=== PATIENT | male | born 1955 | race Caucasian/White ===

== ENCOUNTER → 2018-09-05 22:49 | Outpatient (CLI) | payer OTHER, SELFPAY ==
[2018-09-05 18:08] VITALS: BMI 30.7
[2018-09-05 22:55] LABS: Absolute Lymphocyte Count 1.37 X10^3/ul (0.83-4.51); Absolute Neutrophil Count 5.5 X10^3/uL (2.0-7.7); Basophil# 0.05 X10^3/uL; Basophil% 0.7 % (0-1); Eosinophil# 0.13 X10^3/uL; Eosinophils% 1.7 % (0-5); Hematocrit 48.5 % (40-54); Lymphocyte # 1.37 X10^3/ul (4.0); Lymphocyte % 17.8 % (19-41); Mean Corp Hgb Conc 35.1 g/gl (32-36); Mean Corpuscular Hgb 31.4 pg (27.0-32.0); Mean Corpuscular Volume 89.6 fL (80-94); Monocyte% 7.8 % (0-10); Neutrophil # 5.51 X10^3/uL (2.7-7.7); Neutrophil % 71.6 % (47-70); Platelet Count 171 K/mm3 (150-450); RBC Distribution Width CV 14.3 % (11.6-14.6); RBC Distribution Width SD 47.1 fl (35.1-43.9); Red Blood Count 5.41 M/mm3 (4.6-6.2); White Blood Count 7.7 K/mm3 (4.4-11.0)
[2018-09-05 22:58] LABS: POSITIVE COUNT NO; POSITIVE DIFFERENTIAL NO; POSITIVE MORPHOLOGY NO
[2018-09-05 23:19] LABS: ALB/GLOB Ratio 1.4 RATIO (0.9-2.4); AST(SGOT) 23 U/L (15-37); Alanine Aminotransfer ALT/SGPT 30 U/L (16-61); Albumin, Serum 4.2 g/dL (3.2-5.0); Alkaline Phosphatase 72 U/L (45-117); Anion Gap 6 (5-15); BUN 22 mg/dL (7-18); BUN/Creat Ratio 13.5 RATIO (10-20); Calcium,Total 8.6 mg/dL (8.5-10.1); Chloride 104 mmol/L (98-107); Creatinine, Serum 1.63 mg/dL (0.70-1.30); EST Glomerular Filtration Rate 46 mL/min (>60); Est Glom Filt Rate - Afr Amer 55 mL/min (>60); Globulin 3.1 g/dL (2.2-4.2); Glucose 119 mg/dL (74-106); Potassium 4.1 mmol/L (3.5-5.1); Protein, Total 7.3 g/dL (6.4-8.2); Sodium Level 140 mmol/L (136-145)
--- OUTSIDE RECORDS SUMMARY | 2018-10-23 03:42 | XMS RPT_ITS ---
:1955 Author Organization OH[facility] Care Team Providers Name Role Phone MARYAM MEDINA Referring Unavailable CASTELE, MARYAM Brownlee Referring Unavailable LAFFIN, LUKE Referring Unavailable LAFFIN, LUKE Referring Unavailable BASHOUR, BASIL N Admitting Unavailable BASHOUR, BASIL N Attending Unavailable CASTELE, MARYAM J Attending Unavailable CASTELE, MARYAM J Referring Unavailable CASTELE, MARYAM J Referring Unavailable CASTELE, MARYAM J Referring Unavailable CASTELE, MARYAM Brownlee Referring Unavailable CASTELE, MARYAM Brownlee Attending Unavailable CASTELE, MARYAM J Referring Unavailable LAFFIN, LUKE Referring Unavailable LAFFIN, LUKE Attending Unavailable Jaimes, Renetta 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-C Attending Unavailable Jaimes, Renetta 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-C Referring Unavailable PROBLEMS PROBLEMS DATE TYPE CONDITION / CODE ATTENDING STATUS SOURCE 09/14/2018 Active Epigastric pain / BASHOUR, BASIL N Active [facility] R10.13(ICD-10) Other [facility] Repository 09/06/2018 Unknown R11.10 - Jaimes, Active [place] Vomiting, Renetta 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-C Community unspecified / Hospital R11.10(ICD-10) Repository 09/06/2018 Unknown E03.9 - Jaimes, Active [place] Hypothyroidism, 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-C Community unspecified / Hospital E03.9(ICD-10) Repository 05/27/2018 Active Other fatigue / NA Active [facility] R53.83(ICD-10) Main [facility] Repository 05/27/2018 Active Chest pain, NA Active [facility] unspecified / Main [facility] R07.9(ICD-10) Repository 04/10/2016 Active Shortness of NA Active [facility] breath / Other [facility] R06.02(ICD-10) Repository 01/31/2016 Active Solitary NA Active [facility] pulmonary nodule Other [facility] / R91.1(ICD-10) Repository 11/06/2017 Active Other chest pain NA Active [facility] / R07.89(ICD-10) Other [facility] Repository PROCEDURES PROCEDURES No Procedure Records FoundRESULTS RESULTS PT ED Observed: 09/14/2018 Status: COMPLETED Source: [place] 10:35 AM [facility] REPOSITORY HNO ID: [id number] Author: Francie Rand) CARLOS ENRIQUE Taylor Service: Nursing Author Type: Registered Nurse Type: Patient Education Filed: 09/14/2018 10:51 AM Note Text: POST OP LEARNING RESPONSE INSTRUCTION PROVIDED TO: Patient and Family member METHOD OF INSTRUCTION: Verbal instruction PATIENT / FAMILY RESPONSE: Information received as demonstrated by interest and questions FOLLOW-UP PLAN: Patient instructed to call with any further issues SUPPLEMENTAL MATERIAL: Post op discharge instructions REFERRAL (RECOMMENDATION): None Electronically Signed By: Francie Taylor RN In Department: [facility] NURSING PROG Observed: 09/14/2018 Status: COMPLETED Source: [place] 10:05 AM [facility] REPOSITORY HNO ID: [id number] Author: Francie Rand) CARLOS ENRIQUE Taylor Service: Nursing Author Type: Registered Nurse Type: Nursing Progress Note Filed: 09/14/2018 10:52 AM Note Text: 0950 Received from pacu No c/o pain Light diet to pt 1020 Iv removed Discharge instructions reviewed with pt and family 1035 Discharged by wheelchair SURGICAL PATHOLOGY Observed: 09/14/2018 Status: F Source: [place] 9:00 AM [facility] REPOSITORY Specimen originated from [facility] Specimen #: [id number] Submitting Physician: Basil Elizondo M.D. FINAL DIAGNOSIS 1. Stomach, biopsy (A) - Gastric oxyntic-type mucosa with no pathologic diagnostic abnormality; see comment. 2. Esophagogastric junction, irregular, biopsy (B) - Reactive squamous mucosa with parakeratosis and focal acute inflammation admixed with actively inflamed gastric mucosa compatible with histologic features of reflux esophagitis; negative for intestinal metaplasia and dysplasia. SS/kr 09/15/2018 COMMENT 1. No microorganisms morphologically compatible with H. pylori are identified on routine H&E stained sections. Baudilio Powers M.D. (Electronic Signature) SPECIMEN SUBMITTED A: GASTRIC, BIOPSY, R/O H. PYLORI B: IRREGULAR ESOPHAGOGASTRIC JUNCTION, BIOPSY, R/O BROWN'S CLINICAL DATA R/O H PYLORI, R/O BROWN'S GROSS DESCRIPTION A. Received in formalin are three pieces of wadsworth, soft tissue aggregating to 0.7 x 0.3 x 0.2 cm. Totally submitted in one cassette. B. Received in formalin are three pieces of wadsworth, soft tissue aggregating to 1.4 x 0.3 x 0.3 cm. Totally submitted in one cassette. Gross examination performed at [facility], [address] [place] [address] 09/14/2018 5:44:35 PM Date of Report: 09/15/2018 Date of Procedure: 09/14/2018 Date of Receipt: 09/14/2018 Submitted by: Basil Elizondo M.D. Location: [facility] Diagnostic interpretation performed at [place] [address]. Performed By: #### PATHS #### [place] [address] [phone] NURSING PROG Observed: 09/14/2018 Status: COMPLETED Source: [place] 8:11 AM [facility] OTHER [facility] REPOSITORY HNO ID: [id number] Author: Lena (Rn) CARLOS ENRIQUE Barber Service: (none) Author Type: Registered Nurse Type: Nursing Progress Note Filed: 09/14/2018 8:11 AM Note Text: PRE OP LEARNING ASSESSMENT PROCEDURE/SURGERY:EGD READINESS TO LEARN COGNITIVE ABILITY: Alert and oriented MOTIVATION TO LEARN: Interested FAMILY SUPPORT: High - Very involved in pt care PATIENT LEARNS BEST BY: Individual Instruction Verbal Instruction FACTORS AFFECTING LEARNING: None PHYSICAL LIMITATIONS AFFECTING LEARNING: None Electronically Signed By: Lena Barber RN, BSN In Department: [facility] HOSP Observed: 09/08/2018 Status: COMPLETED Source: [place] 12:00 AM [facility] OTHER [facility] REPOSITORY Patient:Connor Gonzales MRN: <[id number]> Height:6' 4(1.93 m) Weight:255 lb (115.667 kg) Outpatient Medications as of 09/14/18: ACETAMINOPHEN (TYLENOL ORAL) levothyroxine (SYNTHROID) 88 mcg tablet Admission/Clinic Administered Medications as of 09/14/18: NaCl 0.9% iv infusion Problem List: Disorder of thyroid [E07.9] Lung nodule [R91.1] Melanocytic nevi of trunk [D22.5] Rash and nonspecific skin eruption [R21] Shortness of breath [R06.02] Allergies: No Known Allergies Date Verified:09/14/18 Lab Values No results within the last 30 days for the following basenames: K,HCT No progress notes entered within the past 30 days OFFICE VISIT Observed: 09/06/2018 Status: F Source: [place] 10:58 AM [facility] REPOSITORY [facility] [address] [place] [address] OFFICE VISIT Date of Service: 09/05/18 MR#: [id number] Acct: [id number] Name: CONNOR GONZALES Rep #: [id number] : 1955 Provider: QUE Jaimes Age/Sex: 63/M Location: [facility] Status: Signed Intake Vital Signs09/05/18 Height 6 ft 4.75 in 09/05/18 Weight: 257 lb 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 Ever since then has had trouble breathing, when he bends over he develops coughing and then unable to breath Has seen specialists ,saw a lung DR Jose J, he found some lung nodules but stated that had nothing to do with his problem. Saw a Cardiac Dr states nothing wrong with him also did a stress test on him Rubs his lower chest and states it hurts ,but on exam tender on exam in the epigastric area only had a colonoscpy not a EGD . also stopped his thyroid meds because gave him a headache. last 1-2 months ROS Const Constitutional: Positive for other (chokes on his own phlegm) and fatigue Resp Respiratory: Positive for cough (when he bends over) Gastro GI: Yes other (chokes on his own phlegm), Yes nausea/dyspepsia Endo Endo: Yes fatigue Exam Const Constitutional: Yes cooperative, Yes healthy appearing Orientation: Yes alert, awake and oriented x3 HENMT Head: Yes normocephalic Ear: Yes hearing grossly normal bilaterally Neck Neck: normal visual inspection Thyroid: thyroid normal Eyes General: Yes appearance normal, both eyes and all related structures Chest Chest palpation AND inspection: Yes normal inspection of the chest Resp Effort AND Inspection: Yes normal respiratory effort Auscultation: Yes clear to auscultation bilaterally Cardio Palpitation: Yes normal PMI Rate: Yes regular rate Rhythm: Yes regular rhythm GI Inspection: Yes normal to inspection Auscultation: Yes normal bowel sounds Palpation: Yes no hepatosplenomegaly and guarding (epigastric area) Musc Cervical Spine: Yes cervical ROM normal Thoracic/Lumbar Spine: Yes thoracic and lumbar spine normal to inspection Skin General: no rashes or lesions noted Lesions: Yes no lesions Extrem General: Yes normal to inspection Neuro General: Yes alert and oriented x3 Psych Appearance: Positive grossly normal Mood: Positive congruent mood Affect: Positive normal affect Assessment AND Plan Problems 1. Hypothyroidism (acquired) E03.9 2. Vomiting without nausea, intractability of vomiting not specified, unspecified vomiting type R11.11 Patient Instructions Take the medication everyday till seen again in 1 month will call with the results of the labs drawn today Orders Orders: Medications New: Coding Level of Care Code Off vis,new,level 3 Diagnoses Hypothyroidism (acquired) E03.9 Vomiting without nausea, intractability of vomiting not specified, unspecified vomiting type R11.11 Nausea presence: without nausea Vomiting Intractability: unspecified Vomiting type: unspecified 09/06/18 1058 <Electronically signed by Renetta ANTONIO> Date Renetta ANTONIO CC: CBC W/DIFF, AUTOMATED Collected: 09/05/2018 Status: F Source: [place] 6:30 PM [facility] REPOSITORY TYPE CODE TESTS RESULT OUT OF RANGE REFERENCE UNITS LAB L100.1000 4.4-11.0 K/mm3 Normal WBC 7.7 LAB L100.1200 4.6-6.2 M/mm3 Normal RBC 5.41 LAB L100.1300 13.0-16.5 g/dl High HGB 17.0 LAB L100.1400 40-54 % Normal HCT 48.5 LAB L100.1500 80-94 fL Normal MCV 89.6 LAB L100.1600 27.0-32.0 pg Normal MCH 31.4 LAB L100.1700 32-36 g/gl Normal MCHC 35.1 LAB L100.1810 11.6-14.6 % Normal RDW CV 14.3 LAB L100.1820 35.1-43.9 fl High RDW SD 47.1 LAB L100.1900 150-450 K/mm3 Normal PLT 171 LAB L100.2000 6.2-12.0 fl Normal MPV 12.0 LAB L100.2100 47-70 % High NEUT% 71.6 LAB L100.2200 19-41 % Low LY% 17.8 LAB L100.2300 0-10 % Normal MONO% 7.8 LAB L100.2400 0-5 % Normal EO% 1.7 LAB L100.2500 0-1 % Normal BASO% 0.7 LAB L100.2550 0.0-0.9 % Normal IM GRAN % 0.400 Result Comment: IG% - Immature Granulocytes (promyelocytes, myelocytes and metamyelocytes) > 1% indicates that a LEFT SHIFT is Present. LAB L100.2620 2.0-7.7 X10 3/uL Normal Absolute Neut 5.5 LAB L100.2720 0.83-4.51 X10 3/ul Normal Absolute Lymph 1.37 Performed By: #### L100.0100 #### [facility] [place], [address] COMPREHENSIVE METABOLIC Collected: 09/05/2018 Status: F Source: [place] [facility] 6:30 PM [facility] REPOSITORY TYPE CODE TESTS RESULT OUT OF RANGE REFERENCE UNITS LAB L501.0100 74-106 mg/dL High GLU 119 Result Comment: Fasting Glucose result from 100 to 125 mg/dL suggests IMPAIRED HOMEOSTASIS per A.D.A. criteria. Please note revised GLUCOSE reference range effective 2017. LAB L501.1000 7-18 mg/dL High BUN 22 LAB L501.1100 0.70-1.30 mg/dL High CREAT,SERUM 1.63 Result Comment: The validity of the calculated GFR AND GFRAA in patients over 70 years has not been determined. Clinical correlation is essential. LAB L501.1110 >60 mL/min Low EST GFR 46 Result Comment: Non- GFR Calc LAB L501.1115 >60 mL/min Low EST GFR - AA 55 Result Comment: GFR Calc LAB L501.1300 10-20 RATIO Normal BUN/CRE 13.5 LAB L501.1500 6.4-8.2 g/dL T Normal PROT 7.3 LAB L501.1800 3.2-5.0 g/dL Normal ALB 4.2 LAB L501.1950 2.2-4.2 g/dL Normal GLOB 3.1 LAB L501.2000 0.9-2.4 RATIO Normal A/G 1.4 LAB L501.2200 8.5-10.1 mg/dL CA Normal 8.6 LAB L501.4100 15-37 U/L Normal AST 23 LAB L501.4305 45-117 U/L Normal ALK P 72 LAB L501.4405 16-61 U/L Normal ALT 30 LAB L501.4600 0.20-1.00 mg/dL High T BILI 1.30 LAB L501.5300 136-145 mmol/L NA Normal 140 LAB L501.5600 3.5-5.1 mmol/L K Normal 4.1 LAB L501.5900 98-107 mmol/L CL Normal 104 LAB L501.6100 21.0-32.0 mmol/L Normal CO2 30.0 LAB L501.6200 5-15 Normal GAP 6 Performed By: #### L500.4050, L501.9520 #### [facility] [address] [place], [address] THYROID STIM HORMONE Collected: 09/05/2018 Status: F Source: [place] (TSH) 6:30 PM [facility] REPOSITORY TYPE CODE TESTS RESULT OUT OF RANGE REFERENCE UNITS LAB L501.9520 0.358-3.74 uIU/mL High TSH 19.50 Performed By: #### L500.4050, L501.9520 #### [facility] [address] [place], [address] CNCO Observed: 08/03/2018 Status: COMPLETED Source: [place] 12:[address] [facility] REPOSITORY Letter Text Fabian Mansfield MD Preventive Cardiology [facility] Department of Cardiovascular Medicine [address] [place] [address] Appt: [phone] August 03, 2018 Mr. Connor Gonzales [address] [place] [address] CCF #: [id number] DATE of VISIT: 05/27/2018 Dear Mr. Gonzales, It was a pleasure seeing you in our [facility] on 05/27/2018. We addressed the following issues during the appointment: ASSESSMENT AND PLAN: In addition to the above history and physical exam, the results of prior labs and testing, were reviewed. The following plans and goals have been established to address current medical problems and optimize control of cardiovascular risk factors to reduce the risk of future heart disease: ? Active Medical Problems: ? 1) Chest pain and shortness of breath ? His history is not particularly concerning for angina given the length of time it has occurred and the lack of relation to exertion. He has multiple risk factors for ASCVD, thus I think it is reasonable to perform a stress echocardiogram. This is particularly true given the history that his daughter provides that he is increasingly short of breath and more fatigued recently. I explained to them that if the stress and echo are normal, oftentimes chest pain as he describes can be attributed to musculoskeletal causes. The best way to deal with these pains is to start an exercise regimen that uses these muscles regularly, but safely. ? 2) Hyperlipidemia ? I have asked him to bring his most recent cholesterol levels to our next appointment so we can discuss, risk stratify via his 10-yr ASCVD risk and decide on need for statin therapy. ? 3) Hypertension ? Elevated BP in clinic today. Will discuss addition of lifestyle and possibly pharmacological measures at our next visit. ? FOLLOW UP: We recommend a 6 month follow-up. The above information has also been shared your primary care provider and referring physician. Please feel free to reach out to me anytime if questions arise, or if I may be of further assistance before our next scheduled appointment. I may be reached at [phone] or via [email or web address]. Thank you for your confidence in choosing the [facility] porsha Dey [facility] Department of Cardiovascular Medicine for your healthcare. It is a privilege to work with you to address your cardiovascular health. Sincerely, Fabian Mansfield MD Section of Preventive Cardiology and Rehabilitation Heart and [facility] [facility]/bv STRESS TEST EXERCISE Observed: 06/08/2018 Status: F Source: [place] 12:35 PM [facility] REPOSITORY NAME : CONNOR GONZALES PID : [id number] : 1955 Gender : Male Race : ORD : [id number] Procedure Date : Jun 08 2018 12:35:54 Edit Date : Jun 09 2018 08:49:06 Protocol Name : ORTEGA Time In Exercise Phase : 00:09:00 Max. Systolic BP : 196 mmHg Max Diastolic BP : 94 mmHg Max Heart Rate : 146 BPM Max Predicted Heart Rate : 159 BPM Recovery ECG Response (OLD) : Reason For Termination : Target Heart Rate Achieved Test Reason : CAD Risk Location :[facility] Overread By : EHSAN FARLEY M.D. Edited By : Odilia Pereira Referred By : FABIAN MANSFIELD Acquired by : VERNA OLIVER Observed: 06/07/2018 Status: COMPLETED Source: [place] 12:00 AM [facility] REPOSITORY Telephone ([facility]) CONNOR GONZALES ([id number]) 1955 M Date Time Provider Department 06/07/18 MARY DHILLON (RN) [facility] During your visit today, we recorded the following information about you: Mary Dhillon RN, RN 06/07/2018 1:49 PM Signed Spoke with patient regarding reminder for stress test tomorrow and given instructions Allergies As of Date: 06/07/2018 (No Known Allergies) Date Reviewed: 05/27/2018 Reviewed by: Fabian Mansfield - Fully Assessed Reason for Visit: Reminder Call [5901] Prescriptions as of 06/07/2018 Sig: LEVOTHYROXINE 88 MCG TABLET Take 88 mcg by mouth daily be* TYLENOL ORAL Take by mouth as needed. Problem List As Of Date 06/07/2018 Noted Resolved 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 Shortness of breath [R06.02] INVALID FOR* Encounter Status:Closed by MARY DHILLON on 06/07/18 PROGRESS Observed: 05/27/2018 Status: COMPLETED Source: [place] 4:[address] [facility] REPOSITORY HNO ID: [id number] Author: Fabian Mansfield Service: (none) Author Type: Physician Type: Progress Notes Filed: 05/27/2018 4:57 PM Note Text: Heart [facility] Department of Cardiovascular Medicine SECTION OF PREVENTIVE CARDIOLOGY Connor Gonzales 05/27/2018 CHIEF COMPLAINT: Patient presents with: Chest Pain HISTORY OF PRESENT CARDIOVASCULAR ILLNESS: Connor Gonzales is a 62 year old male with a PMH significant for untreated HLD and HTN. Presents for evaluation of chest pain and shortness of breath. Claims he has had chest pain for 4-5 years since he was cutting down a tree and was injured by the tree falling on his chest. He has had an MRI which does not demonstrate any significant structural changes and has seen a imaging technologist without any evidence of a clear pulmonary problem. He says that he has chest pain and sob everyday, and his daughter said his energy level is decreasing more over the past 4 months. Chest pain can occur while exerting himself or while at rest, it is particularly troublesome to him when he feels the chest pain while lying falt at night. He describes the sensation of someone sitting on his chest. NSAIDs tend to improve pain and his still remains active at his job. He Upon cardiovascular review of systems the patient denies, palpitations, syncope, light-headedness, PND , orthopnea, intermittent claudication. Mr. Gonzales has the following risk factors for cardiovascular disease: Lipid Abnormality: Positive (diagnosed on 09/27/1997) Prediabetes: No Diabetes: No Hypertension: Positive (diagnosed on 09/27/1997) Current Exercise Frequency: Does not exercise Menopausal State: N/A Statin intolerance: Statin: No Niacin: No Fibrates: No Zetia: No Bile Acid Sequestrants: No PAST MEDICAL HISTORY: CAD: None PVD: None CVD: None Arrhythmias:None Valve Disease: Negative Rheumatological Disease: Negative Kidney Disease: Negative Liver Disease: Negative CHF: Negative Pancreatitis: Negative Transplant: None Psychological: Negative Sleep Apnea: Negative Problem List: Problem List Noted Noted By Resolved Resolved By Rash and nonspecific skin eruption 01/31/2016 Shelli Medley No Priority: C Overview Signed 01/31/2016 8:49 AM by Shelli Medley On legs Shortness of breath 04/10/2016 Maryam Medina No Disorder of thyroid 01/31/2016 Shelli Medley No Lung nodule 01/31/2016 Shelli Medley No Melanocytic nevi of trunk 01/31/2016 Shelli Medley No FAMILY AND SOCIAL HISTORY: Early family history of Coronary Artery Disease: Negative Lifestyle Employer And Job Title: None on file Years Of Education Completed: 13+ years Marital Status: with 2 children Tobacco Use: Never Has the patient used tobacco in the last year? No Alcohol Use: No Current Outpatient Prescriptions: levothyroxine (SYNTHROID) 88 mcg tablet Take 88 mcg by mouth daily before breakfast. ACETAMINOPHEN (TYLENOL ORAL) Take by mouth as needed. No current facility-administered medications for this visit. ALLERGIES No Known Allergies REVIEW OF SYSTEMS: CONSTITUTIONAL: No Changes. HEENT:Negative for frequent or significant headaches, No changes in hearing or vision, no nose bleeds or other nasal problems RESPIRATORY: Shortness of breath CARDIOVASCULAR: see HPI GI: No nausea, vomiting, or diarrhea MUSCULOSKELETAL: Negative for joint pain or swelling, back pain or muscle pain SKIN: Negative for lesions, rash, and itching PSYCHIATRIC: Negative for sleep disturbance, mood disorder and recent psychosocial stressors. HEMATOLOGY/LYMPHOLOGY Negative for prolonged bleeding, bruising easily or swollen nodes ENDOCRINE: Negative for cold or heat intolerance, polyuria, polydipsia and goiter NEUROLOGICAL: No history of headaches, syncope, paralysis, seizures or tremors PHYSICAL EXAMINATION: Vital Signs and General Appearance BP 138/88 (BP Site: Right Arm, BP Position: Sitting, BP Cuff Size: Large Adult) Pulse 66 Ht 193 cm (6' 4) Wt 115.8 kg (255 lb 3.2 oz) BMI 31.06 kg/m? Average Blood Pressure: 138/88 BESS Right: Not specified BESS Left: Not specified BMI 31.06 kg/(m2) Waist measurement is No waist measurement recorded. Well developed, well nourished, alert, active 62 year old male in no apparent distress. Eyes: Normal, PERRLA Skin: Xanthomas - No Neck: Normal, supple with full range of motion Lungs: Clear to auscultation and percussion Abdomen: Soft, non-tender. Bowel sounds normal. No masses or organomegaly. Lower Extremities: Normal exam of the extremities Neurological:Oriented to person, place and time and No focal motor or sensory deficits Pulses: Carotid: Left: 2+, Right: 2+, Bruit: No Posterior Tibial:Right 2+, Posterior Tibial:Left 2+, Dorsalis Pedis:Right 2+, Dorsalis Pedis:Left 2+, Heart Sounds: S1: Normal S2: Normal S3: Absent S4: Absent Murmurs: Systolic Murmur Present: No Diastolic Murmur Present: No JVD: not elevated No TTP of area where he feels chest pain. CLINICAL TESTING RESULTS: I have personally reviewed the following: Most recent ECG Tracing: (56pbm, sinus felipe), (performed on 05/27/18), which I independently visualized. Most Recent TTE: (none),(performed on none) Other recent cardiac testing: Pharm MPI SPECT in 2013 - no myocardial ischemia demonstrated according to report. LABS: Glucose (mg/dL) Date Value 10/27/2017 114 (H) BUN (mg/dL) Date Value 10/27/2017 19 Creatinine (mg/dL) Date Value 10/27/2017 1.25 Sodium (mmol/L) Date Value 10/27/2017 141 Potassium (mmol/L) Date Value 10/27/2017 4.2 Chloride (mmol/L) Date Value 10/27/2017 101 CO2 (mmol/L) Date Value 10/27/2017 26 Protein, Total (g/dL) Date Value 08/30/2016 7.2 Albumin (g/dL) Date Value 08/30/2016 4.9 Calcium (mg/dL) Date Value 10/27/2017 9.0 Alkaline Phosphatase (U/L) Date Value 08/30/2016 64 Bilirubin, Total (mg/dL) Date Value 08/30/2016 1.5 AST (U/L) Date Value 08/30/2016 20 ALT (U/L) Date Value 08/30/2016 24 WBC (k/uL) Date Value 10/27/2017 9.29 RBC (m/uL) Date Value 10/27/2017 5.49 Hemoglobin (g/dL) Date Value 10/27/2017 16.9 Hematocrit (%) Date Value 10/27/2017 47.7 MCV (fL) Date Value 10/27/2017 86.9 MCH (pG) Date Value 10/27/2017 30.8 MCHC (g/dL) Date Value 10/27/2017 35.4 RDW-CV (%) Date Value 10/27/2017 14.2 Platelet Count (k/uL) Date Value 10/27/2017 201 MPV (fL) Date Value 10/27/2017 10.9 No results found for: INR Cholesterol, Total Date Value Ref Range Status 02/07/2016 200 (H) 100 - 199 mg/dL Final HDL Cholesterol Date Value Ref Range Status 02/07/2016 31 (L) >45 mg/dL Final LDL Cholesterol Date Value Ref Range Status 02/07/2016 135 (H) 60 - 129 mg/dL Final Triglyceride Date Value Ref Range Status 02/07/2016 168 (H) 30 - 149 mg/dL Final SF 36 Quality of Life Assessment: Physical Component Summary: Not assessed Mental Component Summary: Not assessed This consultation was requested by Self for an opinion regarding chest pain and sob , and my final recommendations will be communicated back to the requesting physician and primary care provider by way of shared medical record or letter summarizing my evaluation. ASSESSMENT AND PLAN: In addition to the above history and physical exam, the results of prior labs and testing, were reviewed. The following plans and goals have been established to address current medical problems and optimize control of cardiovascular risk factors to reduce the risk of future heart disease: Active Medical Problems: 1) Chest pain and shortness of breath His history is not particularly concerning for angina given the length of time it has occurred and the lack of relation to exertion. He has multiple risk factors for ASCVD, thus I think it is reasonable to perform a stress echocardiogram. This is particularly true given the history that his daughter provides that he is increasingly short of breath and more fatigued recently. I explained to them that if the stress and echo are normal, oftentimes chest pain as he describes can be attributed to musculoskeletal causes. The best way to deal with these pains is to start an exercise regimen that uses these muscles regularly, but safely. 2) Hyperlipidemia I have asked him to bring his most recent cholesterol levels to our next appointment so we can discuss, risk stratify via his 10-yr ASCVD risk and decide on need for statin therapy. 3) Hypertension Elevated BP in clinic today. Will discuss addition of lifestyle and possibly pharmacological measures at our next visit. FOLLOW UP: We recommend a 6 month follow-up The medical decision making for this patient encounter was of moderate complexity Fabian Mansfield MD AMBULATORY PATIENT EDUCATION Topic: Chest Pain/Shortness of Breath Hyperlipidemia and Hypertension Instruction Provided To: Patient Barriers: None Motivation to Learn: Interested Methods of Instruction: Verbal instruction and/or handouts. Patient Leans Best By: Multiple Methods Patient Verbalized: Understanding MAGALY Observed: 05/27/2018 Status: COMPLETED Source: PAUL 2:45 PM [facility] REPOSITORY Office Visit (CARD P) WHYNOTT,CONNOR W ([id number]) 1955 M Date Time Provider Department 05/27/18 2:45 PM FABIAN MANSFIELD During your visit today, we recorded the following information about you: Pulse Blood pressure Weight Height 66/minute 138/88 115.8 kg 1.93 m Fabian Mansfield MD 05/27/2018 4:57 PM [facility] Department of Cardiovascular Medicine SECTION OF PREVENTIVE CARDIOLOGY Connor Gonzales 05/27/2018 CHIEF COMPLAINT: Patient presents with: Chest Pain HISTORY OF PRESENT CARDIOVASCULAR ILLNESS: Connor Gonzales is a 62 year old male with a PMH significant for untreated HLD and HTN. Presents for evaluation of chest pain and shortness of breath. Claims he has had chest pain for 4-5 years since he was cutting down a tree and was injured by the tree falling on his chest. He has had an MRI which does not demonstrate any significant structural changes and has seen a imaging technologist without any evidence of a clear pulmonary problem. He says that he has chest pain and sob everyday, and his daughter said his energy level is decreasing more over the past 4 months. Chest pain can occur while exerting himself or while at rest, it is particularly troublesome to him when he feels the chest pain while lying falt at night. He describes the sensation of someone sitting on his chest. NSAIDs tend to improve pain and his still remains active at his job. He Upon cardiovascular review of systems the patient denies, palpitations, syncope, light-headedness, PND , orthopnea, intermittent claudication. Mr. Gonzales has the following risk factors for cardiovascular disease: Lipid Abnormality: Positive (diagnosed on 09/27/1997) Prediabetes: No Diabetes: No Hypertension: Positive (diagnosed on 09/27/1997) Current Exercise Frequency: Does not exercise Menopausal State: N/A Statin intolerance: Statin: No Niacin: No Fibrates: No Zetia: No Bile Acid Sequestrants: No PAST MEDICAL HISTORY: CAD: None PVD: None CVD: None Arrhythmias:None Valve Disease: Negative Rheumatological Disease: Negative Kidney Disease: Negative Liver Disease: Negative CHF: Negative Pancreatitis: Negative Transplant: None Psychological: Negative Sleep Apnea: Negative Problem List: Problem List Noted Noted By Resolved Resolved By Rash and nonspecific skin eruption 01/31/2016 Shelli Medley No Priority: C Overview Signed 01/31/2016 8:49 AM by Shelli Medley On legs Shortness of breath 04/10/2016 Mayram Brownlee Haileriana No Disorder of thyroid 01/31/2016 Shelli Medley No Lung nodule 01/31/2016 Shelli Medley No Melanocytic nevi of trunk 01/31/2016 Shelli Medley No FAMILY AND SOCIAL HISTORY: Early family history of Coronary Artery Disease: Negative Lifestyle Employer And Job Title: None on file Years Of Education Completed: 13+ years Marital Status: with 2 children Tobacco Use: Never Has the patient used tobacco in the last year? No Alcohol Use: No Current Outpatient Prescriptions: levothyroxine (SYNTHROID) 88 mcg tablet Take 88 mcg by mouth daily before breakfast. ACETAMINOPHEN (TYLENOL ORAL) Take by mouth as needed. No current facility-administered medications for this visit. ALLERGIES No Known Allergies REVIEW OF SYSTEMS: CONSTITUTIONAL: No Changes. HEENT:Negative for frequent or significant headaches, No changes in hearing or vision, no nose bleeds or other nasal problems RESPIRATORY: Shortness of breath CARDIOVASCULAR: see HPI GI: No nausea, vomiting, or diarrhea MUSCULOSKELETAL: Negative for joint pain or swelling, back pain or muscle pain SKIN: Negative for lesions, rash, and itching PSYCHIATRIC: Negative for sleep disturbance, mood disorder and recent psychosocial stressors. HEMATOLOGY/LYMPHOLOGY Negative for prolonged bleeding, bruising easily or swollen nodes ENDOCRINE: Negative for cold or heat intolerance, polyuria, polydipsia and goiter NEUROLOGICAL: No history of headaches, syncope, paralysis, seizures or tremors PHYSICAL EXAMINATION: Vital Signs and General Appearance BP 138/88 (BP Site: Right Arm, BP Position: Sitting, BP Cuff Size: Large Adult) Pulse 66 Ht 193 cm (6' 4) Wt 115.8 kg (255 lb 3.2 oz) BMI 31.06 kg/m? Average Blood Pressure: 138/88 BESS Right: Not specified BESS Left: Not specified BMI 31.06 kg/(m2) Waist measurement is No waist measurement recorded. Well developed, well nourished, alert, active 62 year old male in no apparent distress. Eyes: Normal, PERRLA Skin: Xanthomas - No Neck: Normal, supple with full range of motion Lungs: Clear to auscultation and percussion Abdomen: Soft, non-tender. Bowel sounds normal. No masses or organomegaly. Lower Extremities: Normal exam of the extremities Neurological:Oriented to person, place and time and No focal motor or sensory deficits Pulses: Carotid: Left: 2+, Right: 2+, Bruit: No Posterior Tibial:Right 2+, Posterior Tibial:Left 2+, Dorsalis Pedis:Right 2+, Dorsalis Pedis:Left 2+, Heart Sounds: S1: Normal S2: Normal S3: Absent S4: Absent Murmurs: Systolic Murmur Present: No Diastolic Murmur Present: No JVD: not elevated No TTP of area where he feels chest pain. CLINICAL TESTING RESULTS: I have personally reviewed the following: Most recent ECG Tracing: (56pbm, sinus felipe), (performed on 05/27/18), which I independently visualized. Most Recent TTE: (none),(performed on none) Other recent cardiac testing: Pharm MPI SPECT in 2013 - no myocardial ischemia demonstrated according to report. LABS: Glucose (mg/dL) Date Value 10/27/2017 114 (H) BUN (mg/dL) Date Value 10/27/2017 19 Creatinine (mg/dL) Date Value 10/27/2017 1.25 Sodium (mmol/L) Date Value 10/27/2017 141 Potassium (mmol/L) Date Value 10/27/2017 4.2 Chloride (mmol/L) Date Value 10/27/2017 101 CO2 (mmol/L) Date Value 10/27/2017 26 Protein, Total (g/dL) Date Value 08/30/2016 7.2 Albumin (g/dL) Date Value 08/30/2016 4.9 Calcium (mg/dL) Date Value 10/27/2017 9.0 Alkaline Phosphatase (U/L) Date Value 08/30/2016 64 Bilirubin, Total (mg/dL) Date Value 08/30/2016 1.5 AST (U/L) Date Value 08/30/2016 20 ALT (U/L) Date Value 08/30/2016 24 WBC (k/uL) Date Value 10/27/2017 9.29 RBC (m/uL) Date Value 10/27/2017 5.49 Hemoglobin (g/dL) Date Value 10/27/2017 16.9 Hematocrit (%) Date Value 10/27/2017 47.7 MCV (fL) Date Value 10/27/2017 86.9 MCH (pG) Date Value 10/27/2017 30.8 MCHC (g/dL) Date Value 10/27/2017 35.4 RDW-CV (%) Date Value 10/27/2017 14.2 Platelet Count (k/uL) Date Value 10/27/2017 201 MPV (fL) Date Value 10/27/2017 10.9 No results found for: INR Cholesterol, Total Date Value Ref Range Status 02/07/2016 200 (H) 100 - 199 mg/dL Final HDL Cholesterol Date Value Ref Range Status 02/07/2016 31 (L) >45 mg/dL Final LDL Cholesterol Date Value Ref Range Status 02/07/2016 135 (H) 60 - 129 mg/dL Final Triglyceride Date Value Ref Range Status 02/07/2016 168 (H) 30 - 149 mg/dL Final SF 36 Quality of Life Assessment: Physical Component Summary: Not assessed Mental Component Summary: Not assessed This consultation was requested by Self for an opinion regarding chest pain and sob , and my final recommendations will be communicated back to the requesting physician and primary care provider by way of shared medical record or letter summarizing my evaluation. ASSESSMENT AND PLAN: In addition to the above history and physical exam, the results of prior labs and testing, were reviewed. The following plans and goals have been established to address current medical problems and optimize control of cardiovascular risk factors to reduce the risk of future heart disease: Active Medical Problems: 1) Chest pain and shortness of breath His history is not particularly concerning for angina given the length of time it has occurred and the lack of relation to exertion. He has multiple risk factors for ASCVD, thus I think it is reasonable to perform a stress echocardiogram. This is particularly true given the history that his daughter provides that he is increasingly short of breath and more fatigued recently. I explained to them that if the stress and echo are normal, oftentimes chest pain as he describes can be attributed to musculoskeletal causes. The best way to deal with these pains is to start an exercise regimen that uses these muscles regularly, but safely. 2) Hyperlipidemia I have asked him to bring his most recent cholesterol levels to our next appointment so we can discuss, risk stratify via his 10-yr ASCVD risk and decide on need for statin therapy. 3) Hypertension Elevated BP in clinic today. Will discuss addition of lifestyle and possibly pharmacological measures at our next visit. FOLLOW UP: We recommend a 6 month follow-up The medical decision making for this patient encounter was of moderate complexity Fabian Mansfield MD AMBULATORY PATIENT EDUCATION Topic: Chest Pain/Shortness of Breath Hyperlipidemia and Hypertension Instruction Provided To: Patient Barriers: None Motivation to Learn: Interested Methods of Instruction: Verbal instruction and/or handouts. Patient Leans Best By: Multiple Methods Patient Verbalized: Understanding Referring Provider: SELF [[id number]] Allergies As of Date: 05/27/2018 (No Known Allergies) Date Reviewed: 05/27/2018 Reviewed by: Fabian Mansfield - Fully Assessed Reason for Visit: Chest Pain [21] Primary Visit Diagnosis:SOB (shortness of breath) [R06.02] Other Visit Diagnoses:Hyperlipidemia, unspecified hyperlipidemia type [E78.5] Primary hypertension [I10] Order(s):ECHO [960383] Order #: [id number]: 1 FUTURE STRESS ECHO TREADMILL [[id number]] Order #: [id number]: 1 FUTURE Prescriptions as of 05/27/2018 Sig: LEVOTHYROXINE 88 MCG TABLET Take 88 mcg by mouth daily be* TYLENOL ORAL Take by mouth as needed. Problem List As Of Date 05/27/2018 Noted Resolved 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 Shortness of breath [R06.02] INVALID FOR* Level of Service: NEW PATIENT VISIT LEVEL 4 [63908] Disposition: Return in about 6 months (around 11/24/2018). Follow-up and Disposition History Recorded Classic SmartForms filed during this visit: Preventive Cardiology Letter Text Fabian Mansfield MD Preventive Cardiology [facility] Department of Cardiovascular Medicine [address] [place] [address] Appt: [phone] August 03, 2018 Oskar Sousa MD ([facility]) [facility] [address] NAME: Connor Gonzales [facility] #: [id number] DATE of VISIT: 05/27/[address] Sousa, It was a pleasure evaluating your patient, Connor Gonzales in our Preventive Cardiology and Rehabilitation Clinic on 05/27/2018. We addressed the following issues during the appointment: ASSESSMENT AND PLAN: In addition to the above history and physical exam, the results of prior labs and testing, were reviewed. The following plans and goals have been established to address current medical problems and optimize control of cardiovascular risk factors to reduce the risk of future heart disease: ? Active Medical Problems: ? 1) Chest pain and shortness of breath ? His history is not particularly concerning for angina given the length of time it has occurred and the lack of relation to exertion. He has multiple risk factors for ASCVD, thus I think it is reasonable to perform a stress echocardiogram. This is particularly true given the history that his daughter provides that he is increasingly short of breath and more fatigued recently. I explained to them that if the stress and echo are normal, oftentimes chest pain as he describes can be attributed to musculoskeletal causes. The best way to deal with these pains is to start an exercise regimen that uses these muscles regularly, but safely. ? 2) Hyperlipidemia ? I have asked him to bring his most recent cholesterol levels to our next appointment so we can discuss, risk stratify via his 10-yr ASCVD risk and decide on need for statin therapy. ? 3) Hypertension ? Elevated BP in clinic today. Will discuss addition of lifestyle and possibly pharmacological measures at our next visit. FOLLOW UP:?We recommend a 6 month follow-up I will continue to keep you updated on my involvement in your patient's care. Please feel free to contact me at any time if questions arise, or if I may be of further assistance. I can be reached at the above phone number or by email at [email or web address]. Thank you for the opportunity to participate in caring for your patient. Sincerely, Fabian Mansfield MD Section of Preventive Cardiology and Rehabilitation Heart and Vascular [place] LL:bv Letter Text Fabian Mansfield MD Preventive Cardiology [facility] Department of Cardiovascular Medicine [address] [place] [address] Appt: [phone] August 03, 2018 Oskar Sousa MD ([facility]) [facility] [address] [address] NAME: Connor Gonzales [facility] #: [id number] DATE OF VISIT: 05/27/[address] Sousa, It was a pleasure evaluating your patient, Connor Gonzales in our Preventive Cardiology and Rehabilitation Clinic on 05/27/2018. We addressed the following issues during the appointment: ASSESSMENT AND PLAN: In addition to the above history and physical exam, the results of prior labs and testing, were reviewed. The following plans and goals have been established to address current medical problems and optimize control of cardiovascular risk factors to reduce the risk of future heart disease: ? Active Medical Problems: ? 1) Chest pain and shortness of breath ? His history is not particularly concerning for angina given the length of time it has occurred and the lack of relation to exertion. He has multiple risk factors for ASCVD, thus I think it is reasonable to perform a stress echocardiogram. This is particularly true given the history that his daughter provides that he is increasingly short of breath and more fatigued recently. I explained to them that if the stress and echo are normal, oftentimes chest pain as he describes can be attributed to musculoskeletal causes. The best way to deal with these pains is to start an exercise regimen that uses these muscles regularly, but safely. ? 2) Hyperlipidemia ? I have asked him to bring his most recent cholesterol levels to our next appointment so we can discuss, risk stratify via his 10-yr ASCVD risk and decide on need for statin therapy. ? 3) Hypertension ? Elevated BP in clinic today. Will discuss addition of lifestyle and possibly pharmacological measures at our next visit. ? FOLLOW UP: We recommend a 6 month follow-up. I will continue to keep you updated on my involvement in your patient's care. Please feel free to contact me at any time if questions arise, or if I may be of further assistance. I can be reached at the above phone number or by email at [email or web address]. Thank you for the opportunity to participate in caring for your patient. Sincerely, Fabian Mansfield MD Section of Preventive Cardiology and Rehabilitation Heart and Vascular [place] LL:maria antonia Encounter Status:Closed by FABIAN MANSFIELD on 05/27/18 ECG COMPLETE W Observed: 05/27/2018 Status: F Source: PAUL INTERPRETATION 2:29 PM [facility] REPOSITORY NAME : CONNOR GONZALES PID : [id number] : 1955 Gender : Male Race : ORD : [id number] Procedure Date : May 27 2018 14:29:25 Edit Date : Jun 08 2018 09:02:00 Diagnosis:SINUS BRADYCARDIA WITH SINUS ARRHYTHMIA OTHERWISE NORMAL ECG Confirmed by BARBI FOWLER M.D. ([id number]) on 06/08/2018 8:21:32 AM Ventricular Rate : 56 BPM Atrial Rate : 56 BPM P-R Interval : 168 ms QRS Duration : 96 ms Q-T Interval : 436 ms QTC Calculation(Bezet) : 420 ms P Shubuta : 40 degrees R Shubuta : 20 degrees T Shubuta : 46 degrees Test Reason : Location : 314 : J14 Overread By : BARBI FOWLER M.D. Edited By : BARBI FOWLER M.D. Referred By : FABIAN MANSFIELD Acquired by : ESTHELA MOORE Observed: 05/12/2018 Status: COMPLETED Source: PAUL 12:00 AM [facility] REPOSITORY Letter Text FABIAN MANSFIELD MD, [address] [place] [address] Office: Appts.: May 12, 2018 Dear : Mr. Gonzales Thank you for choosing the [facility] [place] for your cardiac care. We are pleased to offer you an appointment with FABIAN MANSFIELD MD on May 27, 2018 at 2;45 PM. Appointment Preparation Please review the attached appointment schedule and follow all instructions that are given. Be sure to bring this appointment schedule with you as well. Your Medical History and Records Below is a checklist with information you must send to your doctor's office prior to your appointment. This information is required by the doctor prior to your visit to best evaluate and treat your medical condition. Records must be obtained from your physician or the hospital where you have received care previously. You may use this letter as a guide for what is required. You may need to sign a release of information to obtain these records. It is important that we receive your outside records to provide the best care to you. Please fax these results to your [facility] doctor at least one week prior to your appointment. Faxing is the preferred method to receive records. If records must be mailed rather than faxed, they should be sent via mail or express mail directly to the physician using the address and desk number provided in this letter. Items needed for your visit: Your most recent hospital discharge summary related to your current heart problem If you have had any of the following diagnostic tests or procedures listed below, please obtain the film (CD) if applicable and the report Operative notes from previous heart surgeries Most recent cardiac catheterization (CD in DICOM format and report) Most recent echocardiogram (CD in DICOM format and report) Most recent stress test Most recent cardiac CT and MRI (CD and report) Most recent EKG (report and actual tracing; include any abnormal EKGs or rhythm disturbances) Most recent electrophysiology testing (report and actual tracing) Most recent labwork Most recent emergency room visit information Your device identification card if you have an implanted device such as a pacemaker or defibrillator or stent Having this information will give us the best information about your illness and help prevent delays in evaluation and treatment on the day of your appointment. If you are having difficulty obtaining your records, please contact the physician?s office for assistance. Please bring all of your medications in their original bottles. Include all [id number] pills or remedies. This helps avoid confusion over the dosages and names of your current medications. You are encouraged to bring a family member or friend on the day of your appointment, though it is not absolutely necessary. Medication Guidelines Take all of your medications as prescribed, unless you have been given other instructions. You may need to fast or adjust diabetic medications depending on what test or procedures you may have scheduled. Appointment Time The time you are asked to report for your appointment or procedure includes the time necessary to provide you with additional instructions or preparations. There may be a delay in the time of your procedure or seeing your physician because of these preparations. It is our commitment to provide each patient with the best care. We will do our best to make sure that you and your family members are as comfortable as possible during your stay. Parking Photo [employer] Assistant parking is available from 6:00 a.m. to 7:00 p.m. in front of the [facility] You can also park in the Parking Garage located on [facility] between [address] Wheelchairs are available in the garage or at the [facility] Admitting and Registration Desk. Discount parking vouchers are available - please ask your parking dressing room attendant or visit the [address]'s Office. Arrival Please report to the [facility] [place] Registration Desk to start your appointment. The desk is located on the first [facility] Please show the clinical fellow the enclosed appointment schedule and your insurance information. During Your Appointment A nurse, physician senior court office assistant, nurse practitioner, clinical nurse specialist, or fellow (doctor) may see you prior to your appointment with your physician. He or she will review the information from your checklist and will ask you questions regarding your medical history. A physical examination may be performed at this time. You may be scheduled for additional tests that may include blood work, x-rays, EKG, or other diagnostic tests after you see your physician. Appointment Duration If this is your first visit, please plan on being at the [facility] for four hours. If You Have Questions or Need to Reschedule Your Appointment If for some reason you are unable to keep your appointment or you have any questions, please notify us as soon as possible by calling or [phone]. [phone]. We look forward to meeting you. Sincerely yours, Scheduling Office [facility] Enclosure MRI STERNUM WO/W Observed: 11/30/2017 Status: F Source: [facility] 5:05 PM CLINIC OTHER CAMPUS REPOSITORY * * *Final Report* * * DATE OF EXAM: Nov 30 2017 5:05PM [facility] 0250 - MRI STERNUM WO/W IVCON / PROCEDURE REASON: R07.89-Other chest pain * * * * Physician Interpretation * * * * MRI STERNUM WITHOUT AND WITH CONTRAST History: Other chest pain . History of injury 4 years ago with persistent sternal pain. Technique: Multiplanar multisequence imaging of the sternum was performed before and after intravenous contrast administration. Contrast Media 1: IV administration of 20 ml of Dotarem Comparison: CT chest 11/06/2017 RESULT: Bone marrow: No evidence of fracture, bone bruise, or pathologic marrow replacing lesion. Muscles: Normal bulk and signal intensity of the included pectoralis musculature. Other: Tiny marginal osteophytes and subchondral cysts of the included right sternoclavicular joint. Tiny osteophytes of the left sternoclavicular joint. No sternoclavicular joint effusion. A 1 cm left hepatic lobe cyst is incidentally noted. A couple subcentimeter lesions of the left hepatic lobe more inferiorly with hyperintensity on fluid sensitive sequences are suggestive of cysts. IMPRESSION: Minimal degenerative changes of the sternoclavicular joints. Wind Up Operator: PSCB Transcribe Date/Time: Dec 01 2017 9:31A Dictated by : MIKE PATRICIO MD This examination was interpreted and the report reviewed and electronically signed by: MIKE PATRICIO MD on Dec 01 2017 10:09AM EST [id number] PROGRESS Observed: 11/17/2017 Status: COMPLETED Source: PAUL 4:28 PM [facility] REPOSITORY HNO ID: [id number] Author: Maryam Medina Service: (none) Author Type: Physician Type: Progress Notes Filed: 11/17/2017 4:28 PM Note Text: This office note has been dictated. Maryam Medina MD PROGRESS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
== END ==
PROVIDERS: Referring Provider Nurse Practitioner; Visit Provider Nurse Practitioner
DX: E03.9 Hypothyroidism, unspecified (principal); R11.10 Vomiting, unspecified
CPT/HCPCS: 80053; 84443; 85025

== ENCOUNTER → 2020-05-06 10:21 | Outpatient (CLI) | payer OTHER, SELFPAY ==
[2020-05-06 10:21] VITALS: BMI 31.2
--- NOTE | 2020-05-06 10:23 | RAD_ITS ---
STUDY: X-RAY - RIGHT KNEE REASON FOR EXAM: Male, 64 years old. Pain. TECHNIQUE: 4 view(s) of the knee. COMPARISON: None. FINDINGS: Normal visualized distal femur. Normal visualized proximal tibia and fibula. Normal proximal tibiofibular articulation. There is no acute fracture, dislocation or destructive osseous pathology. There is mild degenerative arthrosis of the medial femorotibial compartment. Normal lateral femorotibial compartment. There is mild degenerative arthrosis of the patellofemoral articulation. There is no demonstrated joint effusion. The soft tissue structures are unremarkable. RAD/Knee 4 or More Views IMPRESSION: Mild arthrosis of the knee. Electronically Signed: Mp Murphy DO at 22:44 EDT Tel [phone], Service support ,
== END ==
PROVIDERS: Referring Provider Orthopaedic Surgery; Visit Provider Orthopaedic Surgery
DX: M25.561 Pain in right knee (principal)
CPT/HCPCS: 73564

== ENCOUNTER → 2020-05-14 15:51 | Outpatient (CLI) | payer OTHER, SELFPAY ==
[2020-05-06 10:53] VITALS: BMI 30.7
--- NOTE | 2020-05-14 15:55 | MRI_ITS ---
STUDY: MRI RIGHT KNEE REASON FOR EXAM: Male, 64 years old. RIGHT knee pain, pain entire knee x 6 years TECHNIQUE: Standardized fat and water weighted pulse sequences were obtained in all 3 orthogonal planes. COMPARISON: Right knee x-ray dated May 06 2020 FINDINGS: Normal medial meniscus. Normal hyaline cartilage of the medial femorotibial compartment. Normal medial femoral condyle and tibial plateau. Normal medial collateral ligamentous complex (MCL). Normal distal semimembranosus, gracilis and semitendinosus tendons. Normal lateral meniscus. Normal hyaline cartilage of the lateral femorotibial compartment. Normal lateral femoral condyle and tibial plateau. Mild narrowing as well as subchondral cystic changes are present on both sides of the tibiofibular articulation. Normal lateral collateral (fibular) ligament. Normal popliteus tendon. Normal biceps femoris tendon. There is edema with swelling and loss of definition of the of the ACL fascicles, producing a celery stick appearance, with preservation of the continuity of fibers, consistent with mucoid cystic degeneration. Normal posterior cruciate ligament (PCL). Normal congruent patellofemoral articulation. There is diffuse, greater than 50% thickness articular cartilage loss of the patellofemoral compartment. Normal medial and lateral patellar retinaculum. Normal quadriceps tendon. Normal patellar tendon. Normal Hoffa''s fat pad. There is a small volume joint effusion. Mild subcutaneous edema is present around the knee joint. MRI/Lower Ext Joint Only (Routine) IMPRESSION: 1. Mucoid degeneration of the ACL 2. Greater than 50% articular cartilage thickness loss in the patellofemoral compartment 3. Small joint effusion 4. Mild osteoarthritis of the tibiofibular articulation. Electronically Signed: Patrick Castelan MD at 17:04 EDT , Service support ,
== END ==
PROVIDERS: Referring Provider Orthopaedic Surgery; Visit Provider Orthopaedic Surgery
DX: M25.561 Pain in right knee (principal)
CPT/HCPCS: 73721

== ENCOUNTER → 2020-05-28 15:36 | Outpatient (CLI) | payer OTHER, SELFPAY ==
[2020-05-28 15:22] VITALS: BMI 30.7
[2020-05-28 17:08] LABS: Absolute Lymphocyte Count 1.06 X10^3/uL (0.83-4.51); Absolute Neutrophil Count 6.2 X10^3/uL (2.0-7.7); Basophil# 0.06 X10^3/uL; Basophil% 0.8 % (0-1); Eosinophil# 0.12 X10^3/uL; Eosinophils% 1.5 % (0-5); Hematocrit 49.4 % (40-54); Hemoglobin 16.6 g/dL (13.0-16.5); Lymphocyte # 1.06 X10^3/ul (4.0); Lymphocyte % 13.4 % (19-41); Mean Corp Hgb Conc 33.6 g/dL (32-36); Mean Corpuscular Volume 89.2 fL (80-94); Mean Platelet Vol. 11.2 fl (6.2-12.0); Monocyte% 6.3 % (0-10); NRBC Flagged by Analyzer 0 % (0-5); Neutrophil # 6.17 X10^3/uL (2.7-7.7); Neutrophil % 77.6 % (47-70); Platelet Count 212 K/mm3 (150-450); RBC Distribution Width CV 13.9 % (11.6-14.6); RBC Distribution Width SD 45.8 fl (35.1-43.9); Red Blood Count 5.54 M/mm3 (4.6-6.2); White Blood Count 7.9 K/mm3 (4.4-11.0)
[2020-05-28 18:17] LABS: ALB/GLOB Ratio 1.6 RATIO (0.9-2.4); AST(SGOT) 14 U/L (15-37); Alanine Aminotransfer ALT/SGPT 27 U/L (16-61); Albumin, Serum 4.3 g/dL (3.2-5.0); Alkaline Phosphatase 75 U/L (45-117); Anion Gap 2 (5-15); BUN 15 mg/dL (7-18); BUN/Creat Ratio 10.5 RATIO (10-20); Calcium,Total 8.9 mg/dL (8.5-10.1); Chloride 108 mmol/L (98-107); Cholesterol 209 mg/dL (200); Creatinine, Serum 1.43 mg/dL (0.70-1.30); EST Glomerular Filtration Rate 53 mL/min (>60); Est Glom Filt Rate - Afr Amer 64 mL/min (>60); Globulin 2.7 g/dL (2.2-4.2); Glucose 122 mg/dL (74-106); High Density Lipoprotein 32 mg/dL; Sodium Level 141 mmol/L (136-145); Thyroid Stim Hormone (TSH) 0.55 uIU/mL (0.358-3.74); Triglycerides 180 mg/dL; Very Low Density Lipoprotein 36 mg/dL (5-40)
== END ==
PROVIDERS: PCP Internal Medicine; Referring Provider Internal Medicine; Visit Provider Internal Medicine
DX: E03.9 Hypothyroidism, unspecified (principal)
CPT/HCPCS: 36415; 80053; 80061; 84443; 85025

== ENCOUNTER → 2020-07-16 10:49 | Outpatient (CLI) | payer OTHER, SELFPAY ==
[2020-07-16 10:25] VITALS: BMI 30.4
[2020-07-16 12:14] LABS: Absolute Lymphocyte Count 1.36 X10^3/uL (0.83-4.51); Absolute Neutrophil Count 5.1 X10^3/uL (2.0-7.7); Basophil# 0.07 X10^3/uL; Basophil% 0.9 % (0-1); Eosinophil# 0.22 X10^3/uL; Eosinophils% 2.9 % (0-5); Hematocrit 52.3 % (40-54); Lymphocyte # 1.36 X10^3/ul (4.0); Mean Corp Hgb Conc 34.4 g/dL (32-36); Mean Corpuscular Hgb 30.5 pg (27.0-32.0); Mean Corpuscular Volume 88.5 fL (80-94); Mean Platelet Vol. 10.9 fl (6.2-12.0); Monocyte# 0.78 X10^3/uL; Monocyte% 10.3 % (0-10); NRBC Flagged by Analyzer 0 % (0-5); Neutrophil % 67.5 % (47-70); Platelet Count 208 K/mm3 (150-450); RBC Distribution Width CV 13.6 % (11.6-14.6); RBC Distribution Width SD 44.2 fl (35.1-43.9); Red Blood Count 5.91 M/mm3 (4.6-6.2); White Blood Count 7.6 K/mm3 (4.4-11.0)
[2020-07-16 12:37] LABS: PSA,Total - Annual Screen 1.32 ng/mL (0.00-4.00)
[2020-07-16 12:38] LABS: Differential Indicated SCAN CRITERIA MET
[2020-07-17 15:48] LABS: Pathologist Review Reviewed
== END ==
PROVIDERS: PCP Internal Medicine; Referring Provider Internal Medicine; Visit Provider Internal Medicine
DX: K92.2 Gastrointestinal hemorrhage, unspecified (principal); N40.0 Benign prostatic hyperplasia without lower urinary tract symptoms
CPT/HCPCS: 36415; 84153; 85025; G0103

== ENCOUNTER → 2020-09-02 09:17 | Outpatient (CLI) | payer OTHER, SELFPAY ==
[2020-08-05 15:05] VITALS: BMI 31.2
--- NOTE | 2020-09-03 05:47 | PFTCOMP_ITS ---
COMPLETE PULMONARY FUNCTION TEST INTERPRETATION Brief HPI: Patient is a 65 year old male, currently under the care of Dr. Alejandro, who presents to [facility] for complete pulmonary function tests secondary to diagnosis of dyspnea. Respiratory therapist reports good effort and reproducible results. Interpretation: Forced expiration spirometry shows no large airways obstructive ventilatory defect with an FEV1 of 115% predicted. There is no significant bronchodilator response by strict ATS criteria. Spirograms are of good quality and plateau normally. The respiratory flow volume loop shows a normal pattern. Lung volumes by body plethysmography show a normal total lung capacity at 7.91 L, 100% predicted. All other lung volumes are within normal limits. Diffusion capacity by carbon monoxide is elevated at 128% predicted. The airway resistance is normal. No previous pulmonary function tests were available for review. Impression: These pulmonary function tests are within normal limits. Consider bronchoprovocation if asthma is a concern.
== END ==
PROVIDERS: PCP Internal Medicine; Referring Provider Internal Medicine; Visit Provider Internal Medicine
DX: R06.02 Shortness of breath (principal)
CPT/HCPCS: 94060; 94726; 94729

== ENCOUNTER 2020-09-10 09:44 | Day surgery (SDC) | payer OTHER, SELFPAY ==
[2020-08-05 15:05] VITALS: BMI 31.2
[2020-09-10] VITALS (7 sets, daily range): BP systolic 120–141; BP diastolic 85–97; PULSE 67–100; RESP 18; TEMP 36.4–36.6; O2SAT 93–97; BMI 30.2
--- NOTE | 2020-09-10 | GASB_PTH ---
PATIENT: CONNOR SNOW LOC: EN U#:[id number] AGE/SX: 65/M ROOM: RE09/10/[address]: Dr. Jose Manuel Herrera MD : 1955 BED: DIS: 09/10/2020 SPEC #: [id number] RECD: 09/10/20 13:17 STATUS: KATYA RELuz Marina #: [id number] DEDRICK: 09/10/20 00:[address]: Jose Manuel Herrera DEPT: SURGICAL PATHOLOGY RECD BY: Karl Randle ENTERED: 09/10/20 13:17 SP TYPE: Gastric Bx OTHR DR: Dr. Mini Alejandro MD Tissues: Gastric mucous membrane Procedures: Surgery Specimen Level IV HEADER OPERATION: Colonoscopy, EGD ([facility] [place] PRE-OP DIAGNOSIS: GI hemorrhage; epigastric pain TISSUE SUBMITTED: Antrum biopsy for histo and H. pylori MICROSCOPIC DIAGNOSIS Antrum biopsy: Mild gastritis. See microscopic description and comment. SJ:jerry 09/11/20 COMMENT The results of immunohistochemistry for Helicobacter pylori will be reported separately ([id number]). MICROSCOPIC DESCRIPTION Slides are reviewed. The specimen shows fragments of gastric mucosa with chronic inflammatory cell infiltrates in the lamina propria consisting of lymphocytes and plasma cells, consistent with mild chronic gastritis. GROSS DESCRIPTION Received in fixative is one container labeled with the patient's name and designated antrum biopsy. The specimen consists of one irregular fragment of light wadsworth soft tissue that measures 0.4 x 0.3 x 0.1 cm. The specimen is totally submitted in one cassette. / AVELINA:jerry 09/10/20 TC:3 CPT: 72884
--- NOTE | 2020-09-10 07:50 | HP_ITS ---
Intake Vital Signs 09/03/20 Height 6 ft 3 in 09/03/20 Weight: 250 lb Intake Visit Reasons: CSCOPE, GI BLEED Chief Complaint: Referred for Polycythemia evaluation. Allergies No Known Allergies Allergy (Verified 09/03/20 09:24) Medications levothyroxine 125 mcg tablet 125 tab PO DAILY 05/06/20 [History Confirmed 09/03/20] PFSH Medical History Hypothyroid (Acute) Surgical History H/O arthroscopy of knee (Acute) Family History Other Hypertension Lung cancer Thyroid disorder Social History (Updated 09/03/20 @ 12:[address] 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 Details: Patient was informed that this visit will be billed to patient. This visit was conducted during - pandemic. CONNOR SNOW, is a 65 M who presents to the office today for Evaluation for GI bleed. Patient has had 2 months of rectal bleeding. He has been experiencing some epigastric discomfort. He has been having difficulty with his bowel movements as well. His last colonoscopy was at least 4 years ago and probably 8 years ago he had an EGD with dilatation.He has been experiencing some epigastric pain. ROS Const Constitutional: No anorexia, body ache, chills, excessive sweating, fatigue, fever(s), frequent falls, headache(s), decreased energy, malaise, night sweats, snoring, weakness, weight change, sleep problems, abnormal sleep pattern, change in appetite or other Eyes Eyes: No blurry vision, change in vision, double vision, discharge, dry eyes, bulging eyes, floaters, visual disturbances, eye pain, light sensitivity, spots in vision, tunnel vision or other ENT ENT: Positive for neck pain; no abnormal hearing, ear pain, ear discharge, ear pressure, hearing loss, tinnitus, dizziness/vertigo, balance problems, nosebleed/epistaxis, nasal congestion, nasal obstruction, nose pain, sinus pressure, sinus pain, nasal discharge, post nasal drip, headache(s), facial pain, dental pain, dry mouth, difficulty swallowing, bad breath, hoarseness, lip swelling, mouth lesions, mouth pain, sore throat, tongue swelling, throat swelling or other Resp Respiratory: No cough, change in phlegm color, chest congestion, excessive phlegm production, hemoptysis, pain on inspiration, shortness of breath, pain with cough, snoring, stridor, wheezing or other Cardio Cardiology: No chest pain at rest, chest pain with exertion, leg pain with exertion, excessive sweating, shortness of breath, dyspnea on exertion, generalized swelling, irregular heart rhythm, lightheadedness, orthopnea, radiating jaw, neck or arm pain, fast heart rate, slow heart rate, palpitations or other Gastro GI: Positive for abdominal pain, bloating and constipation; no belching, change in bowel habits, change in stool character, coffee ground emesis, cramping, diarrhea, heartburn, difficulty swallowing, feeling full early, excessive flatus, incontinent of stools, Vomiting blood/hematemesis, blood in stool, loose stools, Black,tarry stools, nausea/dyspepsia, pain with swallowing, vomiting or other Genitourinary Male: No difficulty urinating, burning urination, painful urination, urinary incontinence, urinary frequency, urinary urgency, urinary hesitancy, urinary retention, blood in urine, Frequent nighttime urination/ nocturia, post void dribbling, suprapubic fullness, side pain, sexual problems, genital lesions, genital itching, erectile dysfunction, penile discharge, difficulty with ejaculations, blood in semen, scrotal swelling, testicle lump, testicle pain or other Musc Musculoskeletal: Positive for neck pain; no abnormal walking, joint pain, back pain, deformity, joint swelling, limited range of motion, loss of height, muscle cramps, muscle weakness, decreased muscle mass, body aches, numbness, radiating pain into limb, stiffness, tingling or other Skin Skin: No acne, hair loss, change in hair, nail changes, boil, change in skin color, dry skin, redness, excessive hair growth, yellowing of the skin, lesions, itching, rash, skin pain, skin ulcer, sores, skin swelling, wounds or other Breast Breast: No change in breast shape, breast lump, breast pain, breast skin changes, breast swelling, nipple discharge or other Neuro Neurology: No abnormal walking, abnormal hearing, abnormal movements, abnormal speech, behavioral changes, confusion, unsteady gait/balance, dizziness, weakness, frequent falls, headache(s), lack of coordination, loss of vision, memory loss, numbness, tingling, visual disturbances, restless legs, fainting, tremor(s) or other Psych Psychiatric: No abnormal sleep pattern, No lack of enjoyment, No anxiety, No behavioral changes, No change in appetite, No confusion, No depression, No difficulty concentrating, No hopelessness, No irritability, No memory loss, No mood swings, No panic attacks, No paranoia, No Thoughts of harming yourself/Others, No hallucinations, No other Endo Endocrine: No change in body appearance, cold intolerance, excessive sweating, fatigue, flushing, heat intolerance, increased thirst/drinking, increased hunger, increased urination or other Aller/Imm Allergy/Immunologic: No food intolerance, itchy eyes, lip swelling, seasonal allergy symptoms, throat swelling, tongue swelling, hives, wheezing or other Cj/Lymp Hematologic/Lymphatic: No easy bleeding, easy bruising, enlarged lymph nodes or other Exam Musc Musculoskeletal: No muscle weakness Details: Details:: Exam was limited due to phone visit with no video. Quality Reporting Medication Reconciliation ([facility]) levothyroxine 125 tabs PO DAILY Assessment & Plan Problems 1. Gastrointestinal hemorrhage, unspecified gastrointestinal hemorrhage type K92.2 2. Epigastric pain R10.13 Plan I have discussed the above with the patient. I have offered the patient colonoscopy As well as an EGD for evaluation. I have explained the risks/benefits of the procedure and described the procedure. I have discussed the risks with the patient, including but not limited to: infection, bleeding, perforation of the GI tract requiring emergency surgery, inability to complete the procedure, injury to any internal organs, complications of anesthesia, etc. - the patient understands and agrees to proceed. I have answered all the patient's questions to the patient's satisfaction and the patient has no further questions. The patient has been given instructions for the colon cleansing preparation. Coding Level of Care Code Level 1 Telephone Diagnoses Gastrointestinal hemorrhage, unspecified gastrointestinal hemorrhage type K92.2 ??GI bleed type/associated pathology: unspecified gastrointestinal hemorrhage type Epigastric pain R10.13 Time Spent (min) 10 I have re-examined the patient. There are no clinical changes since date of exam.
[2020-09-10] MEDS: Lactated Ringers 1,000 ML 100 ML IV (10:19)
--- NOTE | 2020-09-10 11:00 | IMM_PTH ---
PATIENT: CONNOR SNOW LOC: EN U#:[id number] AGE/SX: 65/M ROOM: RE09/10/[address]: Dr. Jose Manuel Herrera MD : 1955 BED: DIS: 09/10/2020 SPEC #: [id number] RECD: 09/10/20 14:12 STATUS: KATYA REQ #: [id number] DEDRICK: 09/10/20 11:[address]: Jose Manuel Herrera DEPT: IMMUNOHISTOCHEMISTRY RECD BY: Candy Low ENTERED: 09/10/20 14:12 SP TYPE: IMMUNO OTHR DR: Dr. Mini Alejandro MD Tissues: Stomach, NOS Procedures: H Pylori (initial) PHYSICIAN & INSTITUTION [place] [id number] SPECIMEN INFORMATION: Tissue Source: Antrum biopsy Clinical Info: GI hemorrhage, epigastric pain Specimen Number: [id number] CPT code: 35710 METHODOLOGY: Deparaffinized sections of prefer/formalin-fixed tissue or PAP/DQ stained slides are incubated with monoclonal/polyclonal antibodies/oligonucleotide probes. Localization is made via biotin free immunoperoxidase method. Appropriate controls are performed and reacted as expected. Results on target cell population are indicated in the following table: RESULTS: ANTIBODY / CLONE RESULT H Pylori (polyclonal) negative These tests were developed and their performance characteristics determined by [facility]. They may not have been cleared or approved by the U.S. Food and Drug Administration. The FDA has determined that such clearance or approval is not necessary. INTERPRETATION: Antrum, biopsy: Negative for Helicobacter pylori organisms. SJ:jerry 09/11/20
--- NOTE | 2020-09-10 11:23 | OP.CCLET_ITS ---
09/10/2020 Mini Alejandro MD [address] [place] [address] [place] [address] Re : Upper GI endoscopy procedure for Arturo Gonzales Dear Dr. Alejandro This procedure was performed on Thursday, September 10, 2020. My impressions and recommendations are as follows: Impressions : - Normal esophagus. No specimens collected. - Gastritis. Biopsied. - Normal examined duodenum. No specimens collected. Recommendations : - Discharge patient to home. - Resume previous diet. - Continue present medications. - Await pathology results. - Repeat upper endoscopy is not recommended for surveillance. - Telephone my office for pathology results in 1 week. My findings are described in the full procedure note, which is enclosed. If I can be of further assistance, please feel free to contact me at Doctor phone number(s): , Fax: [phone], Work: . Sincerely, MD Jose Manuel Pedro MD 09/10/2020 11:23:16 AM This report has been signed electronically.
--- NOTE | 2020-09-10 11:23 | OP.EGD_ITS ---
Patient Name: Arturo Gonzales Procedure Date: 09/10/2020 10:14 AM Date of : 1955 Age: 65 Procedure: Upper GI endoscopy Indications: Epigastric abdominal pain, Occult blood in stool Providers: Jose Manuel Herrera MD Referring MD: Mini Alejandro MD Medicines: See the Anesthesia note for documentation of the administered medications Patient Profile: This is a 65 year old male. Refer to note in patient chart for documentation of history and physical. Complications: No immediate complications. Procedure: Pre-Anesthesia Assessment: - Prior to the procedure, a History and Physical was performed, and patient medications and allergies were reviewed. The patient's tolerance of previous anesthesia was also reviewed. The risks and benefits of the procedure and the sedation options and risks were discussed with the patient. All questions were answered, and informed consent was obtained. Prior Anticoagulants: The patient has taken no previous anticoagulant or antiplatelet agents. ASA Grade Assessment: III - A patient with severe systemic disease. After reviewing the risks and benefits, the patient was deemed in satisfactory condition to undergo the procedure. After obtaining informed consent, the endoscope was passed under direct vision. Throughout the procedure, the patient's blood pressure, pulse, and oxygen saturations were monitored continuously. The gastroscope was introduced through the mouth, and advanced to the second part of duodenum. The upper GI endoscopy was accomplished without difficulty. The patient tolerated the procedure well. Scope In: 11:05:58 AM Scope Out: 11:08:15 AM Total Procedure Duration Time 0 hours 2 minutes 17 seconds Findings: The examined esophagus was normal. No biopsies or other specimens were collected for this exam. Localized minimal inflammation characterized by erythema was found in the prepyloric region of the stomach. Biopsies were taken with a cold forceps for Helicobacter pylori testing. The examined duodenum was normal. No biopsies or other specimens were collected for this exam. Impression: - Normal esophagus. No specimens collected. - Gastritis. Biopsied. - Normal examined duodenum. No specimens collected. Recommendation: - Discharge patient to home. - Resume previous diet. - Continue present medications. - Await pathology results. - Repeat upper endoscopy is not recommended for surveillance. - Telephone my office for pathology results in 1 week. Procedure Code(s): --- Professional --- 92660, Esophagogastroduodenoscopy, flexible, transoral; with biopsy, single or multiple Diagnosis Code(s): --- Professional --- K29.70, Gastritis, unspecified, without bleeding R10.13, Epigastric pain R19.5, Other fecal abnormalities CPT copyright 2017 [employer]. All rights reserved. The codes documented in this report are preliminary and upon manager operations research review may be revised to meet current compliance requirements. MD Jose Manuel Pedro MD 09/10/2020 11:23:16 AM This report has been signed electronically. Number of Addenda: 0 Note Initiated On: 09/10/2020 10:14 AM
--- NOTE | 2020-09-10 11:27 | OP.COLON_ITS ---
Patient Name: Arturo Gonzales Procedure Date: 09/10/2020 11:08 AM Date of : 1955 Age: 65 Procedure: Colonoscopy Indications: Rectal bleeding Providers: Jose Manuel Herrera MD Referring MD: Mini Alejandro MD Patient Profile: This is a 65 year old male. Refer to note in patient chart for documentation of history and physical. Last Colonoscopy: more than 3 years ago. Complications: No immediate complications. Procedure: Pre-Anesthesia Assessment: - Prior to the procedure, a History and Physical was performed, and patient medications and allergies were reviewed. The patient's tolerance of previous anesthesia was also reviewed. The risks and benefits of the procedure and the sedation options and risks were discussed with the patient. All questions were answered, and informed consent was obtained. Prior Anticoagulants: The patient has taken no previous anticoagulant or antiplatelet agents. ASA Grade Assessment: III - A patient with severe systemic disease. After reviewing the risks and benefits, the patient was deemed in satisfactory condition to undergo the procedure. After I obtained informed consent, the scope was passed under direct vision. Throughout the procedure, the patient's blood pressure, pulse, and oxygen saturations were monitored continuously. The adult colonoscope was introduced through the anus and advanced to the cecum, identified by appendiceal orifice and ileocecal valve. The colonoscopy was performed without difficulty. The patient tolerated the procedure well. The quality of the bowel preparation was good. Scope In: 11:10:32 AM Scope Withdrawal Time 0 hours 6 minutes 18 seconds Scope Out: 11:19:10 AM Total Procedure Duration Time 0 hours 8 minutes 38 seconds Findings: The entire examined colon appeared normal. Bleeding internal hemorrhoids were found during retroflexion. The hemorrhoids were mild, small and Grade I (internal hemorrhoids that do not prolapse). Multiple small and large-mouthed diverticula were found in the sigmoid colon and descending colon. No biopsies or other specimens were collected for this exam. The exam was otherwise without abnormality. Impression: - The entire examined colon is normal. - Bleeding internal hemorrhoids. - Diverticulosis in the sigmoid colon and in the descending colon. No specimens collected. - The examination was otherwise normal. Recommendation: - Discharge patient to home. - Resume previous diet. - Use hydrocortisone suppository 25 mg 1 per rectum once a day daily. - Repeat colonoscopy in 10 years for screening purposes. - Continue present medications. Procedure Code(s): --- Professional --- 97599, Colonoscopy, flexible; diagnostic, including collection of specimen(s) by brushing or washing, when performed (separate procedure) Diagnosis Code(s): --- Professional --- K64.0, First degree hemorrhoids K62.5, Hemorrhage of anus and rectum K57.30, Diverticulosis of large intestine without perforation or abscess without bleeding CPT copyright 2017 [employer]. All rights reserved. The codes documented in this report are preliminary and upon director process improvement review may be revised to meet current compliance requirements. MD Jose Manuel Pedro MD 09/10/2020 11:26:59 AM This report has been signed electronically. Number of Addenda: 0 Note Initiated On: 09/10/2020 11:08 AM
--- NOTE | 2020-09-10 11:27 | OP.CCLET_ITS ---
09/10/2020 Mini Alejandro MD [address] [place] [address] [place] [address] Re : Colonoscopy procedure for Arturo Gonzales Dear Dr. Alejandro This procedure was performed on Thursday, September 10, 2020. My impressions and recommendations are as follows: Impressions : - The entire examined colon is normal. - Bleeding internal hemorrhoids. - Diverticulosis in the sigmoid colon and in the descending colon. No specimens collected. - The examination was otherwise normal. Recommendations : - Discharge patient to home. - Resume previous diet. - Use hydrocortisone suppository 25 mg 1 per rectum once a day daily. - Repeat colonoscopy in 10 years for screening purposes. - Continue present medications. My findings are described in the full procedure note, which is enclosed. If I can be of further assistance, please feel free to contact me at Doctor phone number(s): , Fax: [phone], Work: . Sincerely, MD Jose Manuel Pedro MD 09/10/2020 11:26:59 AM This report has been signed electronically.
--- NOTE | 2020-09-10 13:00 | RAD_ITS ---
STUDY: X-RAY - ABDOMEN/PELVIS REASON FOR EXAM: Male, 65 years old. Post colonoscopy abdomen pain TECHNIQUE: AP supine and upright views of the abdomen and pelvis. COMPARISON: None. FINDINGS: Normal visualized lung bases. Gaseous distention of the colon. Findings suggestive of sigmoid diverticulosis. There is no demonstrated free abdominal air. The visualized liver, spleen and kidneys are grossly normal in size and morphology. Normal soft tissue structures. Normal visualized osseous structures. RAD/Abd Inc Decub and/or Erect IMPRESSION: Gaseous distention of the colon. Electronically Signed: Shane Cassidy, at 13:13 EST , Service support ,
== END 2020-09-10 13:32 | disposition home or self-care (01) ==
LOC: EN 09:52 → AC 09:52
PROVIDERS: PCP Internal Medicine; Referring Provider Internal Medicine; Visit Provider Surgery
PROC: 0DJD8ZZ Inspection of Lower Intestinal Tract, Via Natural or Artificial Opening Endoscopic (ICD-10-PCS; CPT 45378; principal; 2020-09-10 10:55)
DX: K29.70 Gastritis, unspecified, without bleeding (principal); K64.0 First degree hemorrhoids; K57.30 Diverticulosis of large intestine without perforation or abscess without bleeding; E03.9 Hypothyroidism, unspecified; Z20.828 Contact with and (suspected) exposure to other viral communicable diseases; Z79.899 Other long term (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 therapy
CPT/HCPCS: 43239; 45378; 74019; 87426; 88305; 88342; C9803; J7120; J1610; J2405

== ENCOUNTER 2020-11-10 20:34 | Emergency (ER) | payer OTHER, SELFPAY ==
[2020-09-10 10:20] VITALS: BMI 30.2
[2020-11-10 20:36] VITALS: BP 158/108; PULSE 82; RESP 19; TEMP 36.8; O2SAT 97; BMI 32.1
--- NOTE | 2020-11-10 20:42 | ED.RN ---
RN CALLED FOR EKG, NO OLD EKGS IN MUSE
--- NOTE | 2020-11-10 20:59 | EKG12_ITS ---
Test Reason : PALPATIONS Blood Pressure : / mmHG Vent. Rate : 076 BPM Atrial Rate : 076 BPM P-R Int : 164 ms QRS Dur : 094 ms QT Int : 404 ms P-R-T Axes : 076 081 037 degrees QTc Int : 454 ms Normal sinus rhythm Normal ECG Confirmed by DAJUAN PORRAS, MARION ([id number]), speech language pathology assistant ROEL LANCASTER ([id number]) on 11/14/2020 1:24:38 PM Referred By: HESHAM Confirmed By:MARION GRAFF MD
--- NOTE | 2020-11-10 21:03 | ED.VIS.GEN ---
History of Present Illness Chief Complaint: Hypertension Informant: Patient, Family Onset: Today Narrative: Patient presents for secondary to palpitations and hypertension. He states he woke early this morning with some palpitations. These have occurred intermittently throughout the day. Has been checking his blood pressure and has been elevated, most recently 160/106. He states he is usually checks his blood pressure every day and he typically runs 130 over high 80s. He had some mild shortness of breath today. He states his eyes have felt somewhat fuzzy since yesterday. He denies fever, chills, nausea, or vomiting. - Past Medical History (1) Hypothyroidism (acquired) Status: Chronic Past Medical History - Allergies and Home Meds Allergies/Adverse Reactions: Allergies No Known Allergies Allergy (Verified 11/10/20 20:36) Primary Care Physician: Mini Alejandro MD [Primary Care Provider] - Past Medical History: None Lives: Spouse/ Significant Other Smoking Status: Never smoker Review of Systems General: Denies: Chills, Fever Eyes: Reports: Visual changes - bilaterally - Fuzzy eyes ENT: Denies: Bilateral ear pain Cardiovascular: Reports: Palpitations. Denies: Chest pain Respiratory: Reports: Dyspnea. Denies: Cough Gastrointestinal: Denies: Abdominal pain, Nausea, Vomiting, Diarrhea Genitourinary: Denies: Dysuria Musculoskeletal: Denies: Swelling, Extremity Pain Skin: Denies: Rash Neurological: Denies: Headache Hematologic: Denies: Easy bruising, Easy bleeding Allergy: Denies: Uticaria Physical Exam Vital Signs/Narrative: Vital Signs Temp Pulse Resp BP Pulse Ox 11/10/20 20:36 98.2 F 82 19 H 158/108 H 97 Inital Vital Signs reviewed: Yes General: Well nourished, Well developed Head: Normocephalic ENT: Moist mucous membranes Neck: Supple Cardiovascular: Regular rate, Regular rhythm Respiratory: No distress, CTA bilaterally Abdomen: Soft, Nontender Back: Nontender Extremities: Nontender Skin: Normal color Neurological: Alert, Oriented x3 Psychological: Normal affect Diagnostic/Tx/Re-eval Chest X-Ray - ED: 1 View, Read by ED Physician, Normal, Heart, Lungs, Mediastinum Impressions Chest X-Ray 11/10/20 21:04 IMPRESSION: Normal x-ray examination of the chest. Electronically Signed: Renny Ramírez MD at 21:42 EST , Service support , 11/10/20 21:04 Chest 1 View (Portable) [RAD] Stat Laboratory Results 11/10/20 11/10/20 20:50 20:50 WBC 9.3 RBC 5.71 Hgb 17.7 H Hct 51.0 MCV 89.3 MCH 31.0 MCHC 34.7 RDW Std Deviation 44.7 H RDW Coeff of Veena 13.8 Plt Count 199 MPV 10.7 Immature Gran % (Auto) 0.400 Neut % (Auto) 68.8 Lymph % (Auto) 18.9 L [place] % (Auto) 8.3 Eos % (Auto) 2.7 Baso % (Auto) 0.9 Absolute Neuts (auto) 6.4 Absolute Lymphs (auto) 1.76 Nucleated RBC % 0 Sodium 139 Potassium 4.1 Chloride 102 Carbon Dioxide 32.0 Anion Gap 5 BUN 14 Creatinine 1.62 H Estim Creat Clear Calc 55.06 Est GFR (MDRD) Af Amer 55 L Est GFR (MDRD) Non-Af 46 L BUN/Creatinine Ratio 8.6 L Glucose 95 Calcium 8.7 Troponin I < 0.015 TSH 7.25 H - EKG Initial EKG Interpretation: Sinus Rhythm - Sinus at 76 with no acute ischemia. - Medical Decision Making Patient was observed on cardiac nurse specialist. Blood pressures remained right around 160/95-100. Test results are reviewed. Patient's TSH is elevated at 7.25. In May it was 0.55. Patient states his dose of medication has not changed, however about 2 months ago his pill changed from the pharmacy. Remainder of his work-up was unremarkable. I did discuss case with Dr. Rojo, on-call for the patient's PCP. They will review the chart tomorrow to see if and why there was a change to his medication. If not he may need to be written for a previous brain that he did well with so that he absorbs it appropriately. Patient will be given a dose of Synthroid tonight which patient states he has done well with. He was also given 5 mg of IV metoprolol to help with palpitations and high blood pressure. ED Disposition - Plan for ED Patient: Disposition: Home or Assisted Living Diagnosis: Hypertension, Hypothyroidism Instructions: ED Hypertension, To Be Confirmed, ED Hypothyroidism Referrals: Mini Alejandro MD [Primary Care Provider] - As soon as possible Additional Instructions: Dr. Alejandro's office was contacted tonight about your thyroid tests. They will review the chart and should call you with further instructions tomorrow.
--- NOTE | 2020-11-10 21:04 | RAD_ITS ---
STUDY: X-RAY CHEST REASON FOR EXAM: Male, 65 years old. palpitations and hypertension tonight TECHNIQUE: Single AP portable view of the chest. COMPARISON: 06/20/2020. FINDINGS: The lungs are clear and expanded. There is no demonstrated pleural abnormality. Normal size heart. Normal mediastinum and bethany. Normal visualized pulmonary arteries. Normal visualized aortic arch and descending thoracic aorta. Normal visualized thoracic spine. Normal visualized ribs, clavicles, and shoulders. There is no demonstrated abnormality of the visualized soft tissue structures of the upper abdomen. RAD/Chest 1 View (Portable) IMPRESSION: Normal x-ray examination of the chest. Electronically Signed: Renny Ramírez MD at 21:42 EST , Service support ,
[2020-11-10 21:19] LABS: Absolute Lymphocyte Count 1.76 X10^3/uL (0.83-4.51); Absolute Neutrophil Count 6.4 X10^3/uL (2.0-7.7); Basophil# 0.08 X10^3/uL; Basophil% 0.9 % (0-1); Eosinophil# 0.25 X10^3/uL; Eosinophils% 2.7 % (0-5); Hemoglobin 17.7 g/dL (13.0-16.5); Lymphocyte # 1.76 X10^3/ul (4.0); Lymphocyte % 18.9 % (19-41); Mean Corp Hgb Conc 34.7 g/dL (32-36); Mean Corpuscular Volume 89.3 fL (80-94); Mean Platelet Vol. 10.7 fl (6.2-12.0); Monocyte# 0.77 X10^3/uL; Monocyte% 8.3 % (0-10); NRBC Flagged by Analyzer 0 % (0-5); Neutrophil # 6.39 X10^3/uL (2.7-7.7); Neutrophil % 68.8 % (47-70); Platelet Count 199 K/mm3 (150-450); RBC Distribution Width CV 13.8 % (11.6-14.6); RBC Distribution Width SD 44.7 fl (35.1-43.9); Red Blood Count 5.71 M/mm3 (4.6-6.2); White Blood Count 9.3 K/mm3 (4.4-11.0)
[2020-11-10 21:29] LABS: Anion Gap 5 (5-15); BUN 14 mg/dL (7-18); BUN/Creat Ratio 8.6 RATIO (10-20); Calcium,Total 8.7 mg/dL (8.5-10.1); Chloride 102 mmol/L (98-107); Creatinine, Serum 1.62 mg/dL (0.70-1.30); EST Glomerular Filtration Rate 46 mL/min (>60); Est Glom Filt Rate - Afr Amer 55 mL/min (>60); Estimated Creatinine Clearance 55.06 ml/min; Glucose 95 mg/dL (74-106); Potassium 4.1 mmol/L (3.5-5.1); Sodium Level 139 mmol/L (136-145); Thyroid Stim Hormone (TSH) 7.25 uIU/mL (0.358-3.74)
[2020-11-10 21:51] VITALS: BP 160/109; PULSE 77; RESP 20; O2SAT 94
[2020-11-10] MEDS: Metoprolol Tartrate 5 MG/5 ML Vial IV (22:01)
[2020-11-10] MEDS: Levothyroxine 125 MCG Tablet PO (22:24)
[2020-11-10] MEDS: Labetalol 100 MG/20 ML Vial 10 MG IV (22:28)
[2020-11-10 22:32] VITALS: BP 145/92
== END 2020-11-10 22:32 | disposition home or self-care (01) ==
PROVIDERS: Emergency Provider Emergency Medicine; PCP Internal Medicine
DX: I10 Essential (primary) hypertension (principal); E03.9 Hypothyroidism, unspecified; Z79.899 Other long term (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 therapy
CPT/HCPCS: 71045; 80048; 84443; 84484; 85025; 93005; 96374; 96375; 99285; A4216

== ENCOUNTER → 2020-11-21 13:33 | Outpatient (CLI) | payer MEDICAID, SELFPAY ==
[2020-11-21 13:10] VITALS: BMI 32.0
[2020-11-21 16:18] LABS: Cholesterol 227 mg/dL (200); High Density Lipoprotein 37 mg/dL; Thyroid Stim Hormone (TSH) 2.18 uIU/mL (0.358-3.74); Triglycerides 156 mg/dL; Very Low Density Lipoprotein 31 mg/dL (5-40)
== END ==
PROVIDERS: PCP Internal Medicine; Referring Provider Internal Medicine; Visit Provider Internal Medicine
DX: E03.9 Hypothyroidism, unspecified (principal); I10 Essential (primary) hypertension
CPT/HCPCS: 36415; 80061; 84443

== ENCOUNTER → 2021-09-04 | Outpatient (CLI) | payer MEDICARE, SELFPAY ==
[2021-09-04 21:57] LABS: Absolute Lymphocyte Count 1.13 X10^3/uL (0.83-4.51); Absolute Neutrophil Count 7.9 X10^3/uL (2.0-7.7); Basophil# 0.09 X10^3/uL; Basophil% 0.9 % (0-1); Eosinophil# 0.19 X10^3/uL; Eosinophils% 1.9 % (0-5); Hematocrit 50.7 % (40-54); Hemoglobin 17.2 g/dL (13.0-16.5); Lymphocyte # 1.13 X10^3/ul (0.83-4.51); Lymphocyte % 11.2 % (19-41); Mean Corp Hgb Conc 33.9 g/dL (32-36); Mean Corpuscular Hgb 30.8 pg (27.0-32.0); Mean Corpuscular Volume 90.9 fL (80-94); Mean Platelet Vol. 11.3 fl (6.2-12.0); Monocyte# 0.77 X10^3/uL; Monocyte% 7.6 % (0-10); NRBC Flagged by Analyzer 0 % (0-5); Neutrophil # 7.86 X10^3/uL (2.7-7.7); Neutrophil % 78.1 % (47-70); Platelet Count 207 K/mm3 (150-450); RBC Distribution Width CV 13.7 % (11.6-14.6); RBC Distribution Width SD 46.4 fl (35.1-43.9); Red Blood Count 5.58 M/mm3 (4.6-6.2); White Blood Count 10.1 K/mm3 (4.4-11.0)
[2021-09-04 22:15] LABS: Thyroid Stim Hormone (TSH) 1.19 uIU/mL (0.358-3.74)
== END | disposition home or self-care (01) ==
PROVIDERS: PCP Internal Medicine; Referring Provider Nurse Practitioner; Visit Provider Nurse Practitioner
DX: E03.9 Hypothyroidism, unspecified (principal); M10.9 Gout, unspecified
CPT/HCPCS: 84443; 84550; 85025

== ENCOUNTER 2021-12-22 21:27 | Outpatient (CLI) | payer MEDICARE, SELFPAY ==
[2021-12-22 21:54] LABS: Absolute Lymphocyte Count 1.33 X10^3/uL (0.83-4.51); Absolute Neutrophil Count 6.3 X10^3/uL (2.0-7.7); Basophil# 0.06 X10^3/uL; Basophil% 0.7 % (0-1); Eosinophil# 0.19 X10^3/uL; Eosinophils% 2.2 % (0-5); Hematocrit 50.4 % (40-54); Hemoglobin 17.1 g/dL (13.0-16.5); Lymphocyte # 1.33 X10^3/ul (0.83-4.51); Lymphocyte % 15.6 % (19-41); Mean Corp Hgb Conc 33.9 g/dL (32-36); Mean Corpuscular Hgb 30.1 pg (27.0-32.0); Mean Corpuscular Volume 88.7 fL (80-94); Mean Platelet Vol. 11.5 fl (6.2-12.0); Monocyte# 0.62 X10^3/uL; Monocyte% 7.3 % (0-10); NRBC Flagged by Analyzer 0 % (0-5); Neutrophil # 6.33 X10^3/uL (2.7-7.7); Platelet Count 186 K/mm3 (150-450); RBC Distribution Width CV 14.2 % (11.6-14.6); RBC Distribution Width SD 45.9 fl (35.1-43.9); Red Blood Count 5.68 M/mm3 (4.6-6.2); White Blood Count 8.6 K/mm3 (4.4-11.0)
[2021-12-22 22:08] LABS: ALB/GLOB Ratio 1.4 RATIO (0.9-2.4); AST(SGOT) 24 U/L (15-37); Alanine Aminotransfer ALT/SGPT 29 U/L (16-61); Albumin, Serum 4.3 g/dL (3.2-5.0); Alkaline Phosphatase 72 U/L (45-117); Anion Gap 4 (5-15); BUN 13 mg/dL (7-18); BUN/Creat Ratio 9.1 RATIO (10-20); Calcium,Total 8.6 mg/dL (8.5-10.1); Chloride 104 mmol/L (98-107); Cholesterol 198 mg/dL (200); Creatinine, Serum 1.43 mg/dL (0.70-1.30); EST Glomerular Filtration Rate 53 mL/min (>60); Est Glom Filt Rate - Afr Amer 64 mL/min (>60); Glucose 122 mg/dL (74-106); High Density Lipoprotein 32 mg/dL; Potassium 4.6 mmol/L (3.5-5.1); Protein, Total 7.3 g/dL (6.4-8.2); Sodium Level 138 mmol/L (136-145); Thyroid Stim Hormone (TSH) 2.92 uIU/mL (0.358-3.74); Triglycerides 185 mg/dL; Uric Acid 6.6 mg/dL (3.5-7.2); Very Low Density Lipoprotein 37 mg/dL (5-40)
== END 2021-12-22 23:59 | disposition home or self-care (01) ==
PROVIDERS: PCP Internal Medicine; Visit Provider Nurse Practitioner
DX: R11.11 Vomiting without nausea (principal); I10 Essential (primary) hypertension; E03.9 Hypothyroidism, unspecified; N40.0 Benign prostatic hyperplasia without lower urinary tract symptoms; M10.9 Gout, unspecified; Z12.5 Encounter for screening for malignant neoplasm of prostate
CPT/HCPCS: 80053; 80061; 84153; 84443; 84550; 85025; 86141; G0103

== ENCOUNTER → 2022-10-08 | Outpatient (CLI) | payer MEDICARE, SELFPAY ==
[2022-10-08 22:42] LABS: ALB/GLOB Ratio 1.4 RATIO (0.9-2.4); AST(SGOT) 20 U/L (15-37); Alanine Aminotransfer ALT/SGPT 31 U/L (16-61); Albumin, Serum 4.1 g/dL (3.2-5.0); Alkaline Phosphatase 70 U/L (45-117); Anion Gap 7 (5-15); BUN 21 mg/dL (7-18); BUN/Creat Ratio 14.7 RATIO (10-20); Calcium,Total 8.6 mg/dL (8.5-10.1); Chloride 103 mmol/L (98-107); Creatinine, Serum 1.43 mg/dL (0.70-1.30); EST Glomerular Filtration Rate 53 mL/min (>60); Est Glom Filt Rate - Afr Amer 64 mL/min (>60); Globulin 2.9 g/dL (2.2-4.2); Glucose 91 mg/dL (74-106); Sodium Level 138 mmol/L (136-145); Uric Acid 8.5 mg/dL (3.5-7.2)
== END | disposition home or self-care (01) ==
PROVIDERS: PCP Internal Medicine; Visit Provider Nurse Practitioner
DX: I10 Essential (primary) hypertension (principal); M10.9 Gout, unspecified
CPT/HCPCS: 80053; 84550

== ENCOUNTER → 2023-01-25 | Outpatient (CLI) | payer MEDICARE, SELFPAY ==
[2023-01-25 22:26] LABS: ALB/GLOB Ratio 1.4 RATIO (0.9-2.4); AST(SGOT) 24 U/L (15-37); Alanine Aminotransfer ALT/SGPT 40 U/L (16-61); Alkaline Phosphatase 72 U/L (45-117); Anion Gap 7 (5-15); BUN 17 mg/dL (7-18); Calcium,Total 8.8 mg/dL (8.5-10.1); Chloride 104 mmol/L (98-107); Creatinine, Serum 1.42 mg/dL (0.70-1.30); EST Glomerular Filtration Rate 53 mL/min (>60); Est Glom Filt Rate - Afr Amer 64 mL/min (>60); Globulin 2.9 g/dL (2.2-4.2); Glucose 140 mg/dL (74-106); PSA,Total - Annual Screen 2.05 ng/mL (0.00-4.00); Protein, Total 6.9 g/dL (6.4-8.2); Sodium Level 140 mmol/L (136-145); Thyroid Stim Hormone (TSH) 1.42 uIU/mL (0.358-3.74)
== END | disposition home or self-care (01) ==
PROVIDERS: PCP Internal Medicine; Visit Provider Nurse Practitioner
DX: N40.0 Benign prostatic hyperplasia without lower urinary tract symptoms (principal); E03.9 Hypothyroidism, unspecified; K21.9 Gastro-esophageal reflux disease without esophagitis; I10 Essential (primary) hypertension; Z12.5 Encounter for screening for malignant neoplasm of prostate
CPT/HCPCS: 80053; 84153; 84443; G0103

== ENCOUNTER → 2023-03-16 | Outpatient (CLI) | payer MEDICARE, SELFPAY ==
--- NOTE | 2023-03-16 10:59 | ECHOD_ITS ---
Reason For Study: PALPITATIONS Procedure This was a 2D Doppler, Color Flow transthoracic echocardiogram. Exam performed in department. Left Ventricle Normal LV size. Left ventricular systolic function is normal. The estimated ejection fraction is 60 %. Stage 1 diastolic dysfunction. No regional wall motion abnormalities noted. Right Ventricle Normal RV size. Normal systolic function. Atria Normal left atrium. Normal right atrium. Mitral Valve Normal mitral valve. Tricuspid Valve Normal tricuspid valve. Mild tricuspid valve insufficiency. Pulmonary artery systolic pressure is 20 mmHg. Aortic Valve Normal aortic valve. Trisinus/trileaflet aortic valve. Pulmonic Valve Normal pulmonic valve. Great Vessels Mild to moderately dilated aortic root. The pulmonary artery is normal size. Normal inferior vena cava. Pericardium/Pleural No pericardial effusion. MMode/2D Measurements & Calculations LVIDd: 5.3 cm IVSd: 0.92 cm Ao root diam: 4.5 cm LVIDs: 3.6 cm LVPWd: 1.2 cm RVDd: 4.1 cm FS: 32.4 % LAV(MOD-bp): 60.2 ml LVAd ap4: 36.9 cm2 LVAd ap2: 33.0 cm2 LAV(MOD-bp) Indexed: 24.7 ml/m2 LVLd ap4: 8.8 cm LVLd ap2: 8.7 cm LAV(MOD-sp2): 60.6 ml EDV(MOD-sp4): 131.9 ml EDV(MOD-sp2): 109.8 ml LAV(MOD-sp4): 57.7 ml EDV(sp4-el): 131.3 ml EDV(sp2-el): 106.0 ml LVAs ap4: 24.7 cm2 LVAs ap2: 21.3 cm2 LVLs ap4: 8.0 cm LVLs ap2: 7.9 cm ESV(MOD-sp4): 67.0 ml ESV(MOD-sp2): 53.5 ml ESV(sp4-el): 65.2 ml ESV(sp2-el): 48.8 ml EF(MOD-sp4): 49.3 % EF(MOD-sp2): 51.3 % EF(sp4-el): 50.3 % SV(MOD-sp4): 65.0 ml SV(MOD-sp2): 56.3 ml SV(sp4-el): 66.1 ml LA dimension(2D): 4.5 cm LA A4 area: 19.1 cm2 RA A4 area: 16.1 cm2 Time Measurements MV dec time: 0.35 sec Doppler Measurements & Calculations MV E max cristian: 35.8 cm/sec Lat Peak E' Cristian: 7.4 cm/sec Med Peak E' Cristian: 6.0 cm/sec MV A max cristian: 70.2 cm/sec E/E' lat: 4.9 E/E' med: 6.0 MV E/A: 0.51 MV dec slope: 106.1 cm/sec2 Ao V2 max: 99.7 cm/sec LV V1 max: 77.7 cm/sec Ao max P.0 mmHg LV V1 max P.4 mmHg Ao V2 mean: 71.9 cm/sec LV V1 mean P.4 mmHg Ao mean P.3 mmHg LV V1 mean: 56.1 cm/sec Ao V2 VTI: 21.6 cm LV V1 VTI: 16.1 cm AV (velocity ratio): 0.74 PA V2 max: 96.9 cm/sec PI dec slope: 105.7 cm/sec2 TR max cristian: 203.0 cm/sec TR max P.5 mmHg ECHO/Echo Complete Interpretation Summary Normal LV size. Left ventricular systolic function is normal. The estimated ejection fraction is 60 %. Mild to moderately dilated aortic root. Stage 1 diastolic dysfunction. Ordering Physician: Yobani Garcia Referring Physician: Renetta Jaimes Performed By: Deanna Alcaraz, JASECS, RVT
== END | disposition home or self-care (01) ==
LOC: CVS 10:56
PROVIDERS: PCP Nurse Practitioner; Referring Provider Internal Medicine Cardiovascular Disease; Visit Provider Internal Medicine Cardiovascular Disease
DX: R00.2 Palpitations (principal); E78.5 Hyperlipidemia, unspecified
CPT/HCPCS: 93225; 93226; 93306

== ENCOUNTER → 2024-01-13 | Outpatient (CLI) | payer MEDICARE, SELFPAY ==
--- NOTE | 2024-01-13 07:51 | CT_ITS ---
STUDY: CT CHEST WITHOUT CONTRAST REASON FOR EXAM: Male, 68 years old. Worsening shortness of breath. RADIATION DOSAGE (If Supplied By Facility): CTDIvol = ( 15.81 ) mGy, DLP = ( 542.22 ) mGycm TECHNIQUE: Transaxial imaging was performed without the administration of intravenous contrast material. Multiplanar coronal and sagittal images were reformatted. Individualized dose optimization techniques were used for this CT. COMPARISON: No relevant priors. FINDINGS: CHEST There are small benign-appearing bilateral axillary lymph nodes. Minimal increased markings at the lung bases suggestive of bibasilar mild dependent bibasilar atelectasis or mild scarring. No focal infiltrate is seen. No mass lesions present. There is no demonstrated pleural abnormality. There are calcifications of the coronary arteries. There are multiple small lymph nodes within the mediastinum, which are normal in size and morphology most compatible with reactive lymph hyperplasia. Normal hilar regions. Normal unenhanced pulmonary arteries. Normal aorta arch and descending thoracic aorta. Normal osseous structures. There is no demonstrated abnormality of the visualized upper abdomen. CT/Chest without Contrast IMPRESSION: Minimal increased linear markings at the lung bases suggestive of either linear atelectasis versus mild linear scarring. No focal mass lesion or infiltration is seen. Electronically Signed: Shane Cassidy MD at 14:44 EDT ,
== END | disposition home or self-care (01) ==
PROVIDERS: PCP Nurse Practitioner; Referring Provider Family Medicine; Visit Provider Family Medicine
DX: R06.02 Shortness of breath (principal); R91.1 Solitary pulmonary nodule
CPT/HCPCS: 71250

== ENCOUNTER 2024-04-04 10:30 | Day surgery (SDC) | payer MEDICARE, SELFPAY ==
[2024-04-04] VITALS (8 sets, daily range): BP systolic 112–152; BP diastolic 74–101; PULSE 59–70; RESP 14–16; TEMP 36.4–36.7; O2SAT 92–95; BMI 29.5
[2024-04-04] MEDS: Lactated Ringers 1,000 ML 15 ML IV (10:49)
--- NOTE | 2024-04-04 11:03 | HP.PCM_ITS ---
History and Physical Date of Admission: 04/04/24 Intake Vital Signs 01/07/2416:27 03/27/2409:39 Height 6 ft 3 in 6 ft 3 in Weight: 247 lb 6 oz BMI 30.9 BP 146/90 H Blood Pressure Location Rt brachial Position Sitting Respiration 18 Pulse 88 Pulse Source Monitor Temp 97.5 F L Temp Source Temporal Pulse Oximetry (%) 93 Oxygen Delivery Method room air Intake Visit Reasons: SEBACEOUS CYST Chief Complaint: sebaceous cyst Is patient in pain?: No Allergies No Known Allergies Allergy (Verified 03/27/24 09:39) Medications ?Medication ?Instructions ?Recorded ?Confirmed ?Type tadalafil 20 mg tablet 20 mg PO ONCE PRN 03/08/23 03/27/24 History tamsulosin 0.4 mg capsule 0.4 mg PO QHS 03/08/23 03/27/24 History levothyroxine 137 mcg tablet 137 mcg PO QDAY 03/27/24 03/27/24 History Have you fallen in the past year?: No PFSH Medical History (Updated 03/27/24 @ 10:20 by Marielena Bui) Lipoma of neck Lipoma Hyperlipidemia Essential hypertension Maxillary sinusitis, acute BPH (benign prostatic hyperplasia) GERD (gastroesophageal reflux disease) Hypothyroid Surgical History H/O arthroscopy of knee Family History Other Hypertension Lung cancer Thyroid disorder Social History Smoking Status: Never smoker second hand exposure: No alcohol intake: never substance use type: does not use caffeine: Yes Type: coffee Number of servings: 1 what type of physical activity do you participate in: other details: 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 It is not painful to touch but he says that when he reaches his head back it gives him a headache and it causes pain in his neck. He says it has been there for a few months. He says it is growing. He also thinks it may be causing memory problems. ROS General General: No weight change, appetite, fatigue, colon cancer, breast cancer or weakness HEENT HEENT: No difficulty swallowing, eye injury, eye surgery, swollen glands or hoarseness Endo Endocrine: Yes thyroid disease; No diabetes mellitus, thyroid cancer, Hair loss, heat intolerance or cold intolerance Skin Skin: Yes rash; No changing moles Musc Musculoskeletal: No back problems, arthritis, rheumatoid arthritis, gout or joint pain Cardio Cardiovascular: No murmur, pacemaker, heart disease, atrial fibrillation, high blood pressure, heart attack, heart stent, palpitations, shortness of breat with exertion or chest pain Psych Psychiatric: No depression, anxiety or hearing voices Resp Respiratory: Yes shortness of breath, No sleep apnea, No cough, No COPD, No asthma, No emphysema and No wheezing Gastro Gastrointestinal: No abdominal pain, No nausea or vomiting, No diarrhea, No constipation, No blood in stool, No acid reflux, Yes hemorrhoids, No ulcers, No gallbladder problem and No black,tarry stools Cj Hematologic: No blood thinners, No blood disorders, No bleeding, No anemia and No blood clots Neuro Neurologic: No numbness, No tingling and No weakness Exam Const General: cooperative Orientation: alert and oriented x3 HENMT Head: normal to inspection Other: On the posterior neck there is a soft tissue mass on the left side. Neck Neck: normal visual inspection and full ROM Chest Chest palpation & inspection: normal inspection of the chest Resp Effort & Inspection: normal respiratory effort Auscultation: clear to auscultation bilaterally Cardio Rate: regular rate Rhythm: regular rhythm GI Inspection: non-distended Palpation: soft and nontender Skin General: no rashes or lesions noted Neuro General: patient alert and patient oriented x3 Extrem General: full ROM Psych Appearance: grossly normal Mental Status: mental status grossly normal Assessment and Plan Assessment and Plan (1) Lipoma of neck: Status: Acute Plan: The patient has a soft tissue mass on the posterior left neck which he says is causing him pain when he extends his neck and he thinks is causing him headache as well. I explained the memory loss is not likely due to this. I performed an ultrasound the office and it appears to be a soft tissue mass resembling a lipoma. It does not appear to be invasive or firm. It is soft and mobile. I discussed excision in the operating room so that I may more carefully dissect and avoid the accessory nerve. I discussed the risks of the procedure such as bleeding, infection, injury to other organs such as the accessory nerve itself. The patient agrees to proceed. Ramos Mon MD Pager: [facility] [address] [place] [address] [address] [place] [phone] Office: I have examined the patient and the H&P has been reviewed. There are no clinical changes since date of exam.
[2024-04-04] MEDS: Cefazolin 2 GM in 0.9% Normal Saline (100mL Bag) 100 ML IV (11:18)
[2024-04-04] MEDS: Bupivacaine Mpf 0.5% 30 ML VIAL (11:25)
--- NOTE | 2024-04-04 11:48 | PCM.POST.ANE ---
Anesthesia: Postop Eval I Current Vital Signs Temperature: 98 F Pulse Rate: 61 Blood Pressure: 115/77 Respiratory Rate: 16 Pulse Ox: 93 Oxygen Delivery Method: Room Air Assessment Airway patent: Yes Spontaneous unlabored respirations: Yes Mental status: Awake and Calm nausea: No Vomiting: No Anesthesia Complication: No Fluid Hydration Crystalloid volume administer (ml): 400 Total IV fluid infused: 400 Progress Note Anesthesia document: Postop Eval 1 completed: Yes
--- NOTE | 2024-04-04 12:00 | MASS_PTH ---
PATIENT: CONNOR SNOW [place] [facility] [id number] AGE/SX: 68/M ROOM: RE04/04/[address]: Dr. Ramos Mon MD : [id number] BED: DIS: 04/04/2024 SPEC #: [id number] RECD: 04/04/24 12:40 STATUS: KATYA RELuz Marina #: [id number] DEDRICK: 04/04/24 12:[address]: Ramos Mon DEPT: SURGICAL PATHOLOGY RECD BY: Chantale Perez ENTERED: 04/04/24 13:59 SP TYPE: Mass OTHR DR: Renetta Jaimes, MARISELA Tissues: Neck, NOS Procedures: Surgery Specimen Level IV HEADER OPERATION: Excision, lipoma posterior neck PRE-OP DIAGNOSIS: Left posterior neck mass TISSUE SUBMITTED: Left posterior neck mass MICROSCOPIC DIAGNOSIS Left posterior neck mass, excision: Fibrolipoma. AVELINA/ 04/05/2024 MICROSCOPIC DESCRIPTION Slides are reviewed. GROSS DESCRIPTION Received in fixative is one container labeled with the patient's name and designated Left posterior neck mass. The specimen consists of multiple pieces of adipose tissue measuring in aggregate 3.5 x 3.8 x 1.0cm. Sections reveal yellow adipose cut surfaces with focal area of fibrous cut surfaces without area of hemorrhage, necrosis or cystic degeneration. The entire specimen is submitted in four cassettes. Tenzin 04/04/2024 TC:1 CPT:77638
--- NOTE | 2024-04-04 12:01 | PCM.OPRPT ---
Report of Operation Date of Procedure: 04/04/24 Pre-Operative Diagnosis: Subcutaneous mass on the posterior aspect of the left side of the neck Post-Operative Diagnosis: Same Surgery/Procedure Performed:: Left posterior neck mass excision, subcutaneous, 2 cm Type of Anesthesia: Local MAC Specimen's removed: Posterior left neck mass Estimated Blood Loss (mL): 5 Description of Procedure: Patient was brought back to the operating room and MAC anesthesia was induced. Patient was placed in the right decubitus position. The left posterior neck was prepped and draped in usual sterile fashion. Incision was marked and then injected with local anesthetic. Incision was made with a scalpel and deepened to the subcutaneous tissue. The fatty mass was identified. It was dissected free using sharp dissection and electrocautery. Next the cavity was irrigated and suctioned dry and electrocautery was used to maintain hemostasis. The skin was closed with interrupted 2-0 Vicryl sutures and Dermabond was applied. Patient tolerated the procedure well was brought to PACU in stable condition. Admit VTE Documentation VTE Mechan Device Prophylaxis: SCD's
--- NOTE | 2024-04-04 12:03 | PRE.ANES_ITS ---
ASA Classification* ASA Classification ASA Classification: 2 Assessment & Plan Anesthesia* Anesthesia Assessment Anesthesia Assessment: Discussed sedation and/or anesthesia options, risks, benefits, and alternatives with patient/parents/legal guardian/POA. Questions invited. The patient/parents/legal guardian/POA seems to understand and agrees to proceed with anesthesia plan. Reviewed the physical assessment, medical history, allergy history and patient home medications list prior to surgery/procedure/anesthetic and documented any changes. Performed airway and anesthesia risk assessments. Anesthesia Type Anesthesia Type: MAC (see written pre anesthesia record for full assessment) Anesthesia Focused Assessment* Temperature: 98 F Pulse Rate: 62 Blood Pressure: 116/78 Respiratory Rate: 14 Pulse Ox: 92 Airway Assessment Mouth opens: >3 cm Mallampati Score: II Focused Labs Anesthesia Preop lab: CBC WBC 8.6 K/mm3 (4.4-11.0) 12/22/21 16:39 RBC 5.68 M/mm3 (4.6-6.2) 12/22/21 16:39 Hgb 17.1 g/dL (13.0-16.5) H 12/22/21 16:39 Hct 50.4 % (40-54) 12/22/21 16:39 Plt Count 186 K/mm3 (150-450) 12/22/21 16:39 CHEMISTRY Potassium 4.0 mmol/L (3.5-5.1) 01/25/23 17:21 Sodium 140 mmol/L (136-145) 01/25/23 17:21 BUN 17 mg/dL (7-18) 01/25/23 17:21 Creatinine 1.42 mg/dL (0.70-1.30) H 01/25/23 17:21 Glucose 140 mg/dL (74-106) H 01/25/23 17:21 TSH 1.42 uIU/mL (0.358-3.74) 01/25/23 17:21 COAG Pre-Assessment Diagnosis/Proposed Procedure Planned Operative Procedure(s): Excision of posterior neck lipoma Anesthesia History 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 When Was Last Pacemaker Check QUESTION #4 FULL TEXT: You/Your Family Experience fever (hyperthermia) with Anesthesia Last Oral Intake Last Oral intake: Last Oral Intake NPO since 22:00 04/04/24 10:44 Meds taken in AM with sips of water? Meds patient instructed to take am of surgery PONV PONV - auto crane driver: PONV - auto crane driver Female No 03/31/24 08:59 HX of Motion Sickness No 03/31/24 08:59 HX of N/V After Surgery No 03/31/24 08:59 Non-Smoker Yes 03/31/24 08:59 Duration of Surgery greater No 03/31/24 08:59 than 60 minutes Number of Risk Factors 1 03/31/24 08:59 PONV Score Low Risk 03/31/24 08:59 Height & Weight Height & Weight: Anesthesia: Height & Weight Height 6 ft 4 in 04/04/24 10:44 Weight: 110.2 kg 04/04/24 10:44 Body Mass Index (BMI) 29.5 04/04/24 10:44 Respiratory Assessment Respiratory Assessment - auto crane driver: Respiratory Tract Infection Hx - auto crane driver Hx Respiratory Tract Infection No 03/31/24 08:59 STOP Sleep Apnea STOP Sleep Apnea - auto crane driver: STOP Sleep Apnea - auto crane driver Hx Hypertension Yes 03/31/24 08:59 Hx Sleep Apnea No 03/31/24 08:59 CPAP BIPAP Do you snore loudly (louder No 03/31/24 08:59 than talking or can be heard Do you often feel tired/ No 03/31/24 08:59 fatigued/ sleepy during daytime? Has anyone observed you stop No 03/31/24 08:59 breathing during sleep? STOP Results Negative 04/04/24 11:47 QUESTION #5 FULL TEXT : Do you snore loudly (louder than talking or can be heard through closed doors)? 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 Specify any problems Hx of Preganancy in last 3 N/A 03/31/24 08:59 Months Nurse Filling Out Transfusion [id number] 03/31/24 08:59 & Questions: Date: 03/31/24 03/31/24 08:59 Time: 09:02 03/31/24 08:59 Patient unable to answer at this time (ie. 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: /Reproductive Hx- auto crane driver Hx Now Gestational Age (in weeks): EDC: Hx Hx Para Hx Section SAB Active Medications Active Medications: Current Medications Generic Name Dose Route Start Last Admin Trade Name Freq PRN Reason Stop Dose Admin Cefazolin Sodium 2 gm/ Sodium 110 mls @ 150 mls/hr 04/04/24 12:00 04/04/24 11:18 Chloride IV 04/04/24 12:43 150 mls/hr PREOP ONE Administration Lactated Ringer's 1,000 mls @ 15 mls/hr 04/04/24 10:45 04/04/24 10:49 IV 15 mls/hr .Q48H KYLE Administration PFSH Medical History Wears glasses Non-smoker Shortness of breath on exertion Cardiology follow-up encounter History of echocardiogram Lipoma of neck Lipoma Hyperlipidemia Essential hypertension Maxillary sinusitis, acute BPH (benign prostatic hyperplasia) GERD (gastroesophageal reflux disease) Hypothyroid Home Medications ?Medication ?Instructions ?Recorded ?Last Taken ?Type tadalafil 20 mg tablet 20 mg PO ONCE PRN sexual activity 03/08/23 Unknown History tamsulosin 0.4 mg capsule 0.4 mg PO DAILY 03/08/23 Unknown History levothyroxine 137 mcg tablet 137 mcg PO QDAY 03/27/24 Unknown History Allergy/AdvReac Type Severity Reaction Status Date / Time No Known Allergies Allergy Verified 04/04/24 10:44 Family History Other Hypertension Lung cancer Thyroid disorder Surgical History H/O arthroscopy of knee Social History Smoking Status: Never smoker second hand exposure: No alcohol intake: never substance use type: does not use caffeine: Yes Type: coffee Number of servings: 1 what type of physical activity do you participate in: other 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
--- NOTE | 2024-04-04 12:04 | EX.PCM.DISCH ---
Discharge Instructions Diet Discharge Diet: No restrictions Activity Discharge Activity: Return to Normal Activity and May Shower Lifting Restrictions: no restriction Dressing / Incision Call your doctor if your incision/area has: Continuous Slow Oozing, Sudden Increased Bleeding, Increased Pain/ Swelling, Increased Redness, Foul Smelling Discharge and Swelling at the incision site Call your doctor if you observe: Fever of 101 or Higher Cleanse incision/area with: Soap & Water Additional Dressing/Incision Instructions:: Alternate ibuprofen and Tylenol for pain control Follow Up Care Please Follow Up With: Ramos Mon MD When: Please call to schedule 2 week follow up appointment. [phone] Test Results: Test results from this visit will be discussed in further detail at your follow-up appointment, if applicable. Discharge Plan Admission Attending Provider: Ramos Mon Primary Care Provider: Renetta Jaimes NP Instructions Print Language: Burmese Discharge Orders/Prescriptions Prescriptions: No Action tamsulosin 0.4 mg capsule 0.4 mg PO DAILY tadalafil 20 mg tablet 20 mg PO ONCE PRN (Reason: sexual activity) Patient Comments: TAKE 1 TABLET BY MOUTH EVERY DAY NEEDED levothyroxine 137 mcg tablet 137 mcg PO QDAY Referrals / Follow Up: Renetta Jaimes NP, HEAT TREATER APPRENTICE-C [Primary Care Provider] - Disposition Disposition (needs filled in before D/C Order can be placed): Home, Self Care
--- NOTE | 2024-04-04 12:04 | PCM.POSTANE2 ---
Anesthesia Postop Eval I Sum Postop Eval Completion status Anesthesia document: Postop Eval 1 completed: Yes Anesthesia Postop Eval I Summary Anesthesia Postop Eval I Summary: Anesthesia Postop Eval I: Assessment Summary Airway patent Yes 04/04/24 11:50 Spontaneous unlabored Yes 04/04/24 11:50 respirations Mental status Awake,Calm 04/04/24 11:50 nausea No 04/04/24 11:50 Vomiting No 04/04/24 11:50 Anesthesia Postop Eval I: Fluid Summary Crystalloid volume administer 400 04/04/24 11:50 (ml) Colloids volume administered ( ml) Blood Product volume administered (ml) Total IV fluid infused 400 04/04/24 11:50 Anesthesia Postop Eval I: Summary Notes Anesthesia Complication No 04/04/24 11:50 Anesthesia Complication Comment: Post-operative progress note Anesthesia: Postop Eval II Evaluation Mental status: Awake Pain Level: 0 nausea: No Vomiting: No
== END 2024-04-04 12:48 | disposition home or self-care (01) ==
LOC: SDC 10:31 → AC 10:32
PROVIDERS: PCP Nurse Practitioner; Referring Provider Surgery; Visit Provider Surgery
PROC: (CPT 21555; principal; 2024-04-04 11:50)
DX: D17.0 Benign lipomatous neoplasm of skin and subcutaneous tissue of head, face and neck (principal); L72.3 Sebaceous cyst; E03.9 Hypothyroidism, unspecified; I10 Essential (primary) hypertension; Z79.899 Other long term (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 therapy
CPT/HCPCS: 21555; 00300; 88305; 93005; J7120; J2405

== ENCOUNTER → 2024-04-18 | Outpatient (CLI) | payer MEDICARE, SELFPAY ==
[2024-04-18 21:14] LABS: ALB/GLOB Ratio 1.4 RATIO (0.9-2.4); AST(SGOT) 19 U/L (15-37); Alanine Aminotransfer ALT/SGPT 22 U/L (16-61); Alkaline Phosphatase 71 U/L (45-117); Anion Gap 6 (5-15); BUN 16 mg/dL (7-18); BUN/Creat Ratio 10.3 RATIO (10-20); Chloride 104 mmol/L (98-107); Creatinine, Serum 1.56 mg/dL (0.70-1.30); EST Glomerular Filtration Rate 47 mL/min (>60); Est Glom Filt Rate - Afr Amer 57 mL/min (>60); Globulin 2.9 g/dL (2.2-4.2); Glucose 100 mg/dL (74-106); PSA,Total- Diagnostic 1.27 ng/mL (0.0-4.0); Potassium 3.7 mmol/L (3.5-5.1); Protein, Total 6.9 g/dL (6.4-8.2); Sodium Level 138 mmol/L (136-145); Thyroid Stim Hormone (TSH) 4.72 uIU/mL (0.358-3.74)
== END | disposition home or self-care (01) ==
PROVIDERS: PCP Nurse Practitioner; Referring Provider Nurse Practitioner; Visit Provider Nurse Practitioner
DX: I10 Essential (primary) hypertension (principal); N40.1 Benign prostatic hyperplasia with lower urinary tract symptoms; E03.9 Hypothyroidism, unspecified
CPT/HCPCS: 80053; 84153; 84443

== ENCOUNTER 2024-05-12 15:31 | Emergency (ER) | payer MEDICARE, SELFPAY ==
[2024-05-12 15:33] VITALS: BP 143/95; PULSE 79; RESP 18; TEMP 36.4; O2SAT 96; BMI 30.3
--- NOTE | 2024-05-12 15:37 | EKG12_ITS ---
Test Reason : SYNCOPE Blood Pressure : / mmHG Vent. Rate : 056 BPM Atrial Rate : 056 BPM P-R Int : 168 ms QRS Dur : 090 ms QT Int : 414 ms P-R-T Axes : 046 014 051 degrees QTc Int : 399 ms Sinus bradycardia with sinus arrhythmia Otherwise normal ECG Confirmed by Lawrence Freeman ([id number]), editorial writer ANTONIO FIGUEROA ([id number]) on 05/15/2024 9:51:49 AM Referred By: Confirmed By:Lawrence Freeman
[2024-05-12 17:31] VITALS: BP 153/97; PULSE 71; RESP 19; O2SAT 96
[2024-05-12 17:47] VITALS: BP 147/102; BP 148/98; BP 158/92; PULSE 77; PULSE 78; PULSE 79
--- NOTE | 2024-05-12 18:00 | EX.ED.DYSGE1 ---
HPI History of Present Illness Chief Complaint: Syncope [facility] Medical History Wears glasses Non-smoker Shortness of breath on exertion Cardiology follow-up encounter History of echocardiogram Lipoma of neck Lipoma Hyperlipidemia Essential hypertension Maxillary sinusitis, acute BPH (benign prostatic hyperplasia) GERD (gastroesophageal reflux disease) Hypothyroid Home Medications ?Medication ?Instructions ?Recorded ?Last Taken ?Type tadalafil 20 mg tablet 20 mg PO ONCE PRN sexual activity 03/08/23 Unknown History tamsulosin 0.4 mg capsule 0.4 mg PO DAILY 03/08/23 Unknown History levothyroxine 150 mcg tablet 150 mcg PO DAILY #90 tabs 04/21/24 Unknown Rx prednisone 20 mg tablet 40 mg (2 x 20 mg) PO DAILY #20 tabs 05/09/24 Unknown Rx Allergy/AdvReac Type Severity Reaction Status Date / Time No Known Allergies Allergy Verified 05/12/24 15:32 Family History Other Hypertension Lung cancer Thyroid disorder Surgical History S/P excision of lipoma H/O arthroscopy of knee Social History Smoking Status: Never smoker second hand exposure: No alcohol intake: never substance use type: does not use caffeine: Yes Type: coffee Number of servings: 1 what type of physical activity do you participate in: other details: active 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, 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 michi/jehovah's witness: Religion seatbelt use: always do you feel safe at home: Yes EXAM Physical Exam Const Vital Signs: 05/12/24 15:33 05/12/24 15:37 05/12/24 17:31 Temperature 97.5 F L Temperature Source Temporal Pulse Rate 79 71 Pulse Rate [Lying] Pulse Rate [Sitting (for 1 minute prior to obtaining)] Pulse Rate [Standing (for 1 minute prior to obtaining)] Respiratory Rate 18 19 H Respiratory Effort Respiratory Pattern Blood Pressure 143/95 H 153/97 H Blood Pressure [Lying] Blood Pressure [Sitting (for 1 minute prior to obtaining)] Blood Pressure [Standing (for 1 minute prior to obtaining)] Blood Pressure Mean 111 115 Blood Pressure Mean [Lying] Blood Pressure Mean [Sitting (for 1 minute prior to obtaining)] Blood Pressure Mean [Standing (for 1 minute prior to obtaining)] Pulse Ox 96 96 Oxygen Delivery Method Room Air Room Air Room Air 05/12/24 17:38 05/12/24 17:47 05/12/24 20:05 Temperature Temperature Source Pulse Rate 60 Pulse Rate [Lying] 78 Pulse Rate [Sitting (for 1 minute prior to obtaining)] 77 Pulse Rate [Standing (for 1 minute prior to obtaining)] 79 Respiratory Rate 18 Respiratory Effort Normal Respiratory Pattern Normal Blood Pressure Blood Pressure [Lying] 147/102 H Blood Pressure [Sitting (for 1 minute prior to obtaining)] 148/98 H Blood Pressure [Standing (for 1 minute prior to obtaining)] 158/92 H Blood Pressure Mean Blood Pressure Mean [Lying] 117 Blood Pressure Mean [Sitting (for 1 minute prior to obtaining)] 114 Blood Pressure Mean [Standing (for 1 minute prior to obtaining)] 114 Pulse Ox Oxygen Delivery Method 05/12/24 21:53 Temperature 98.1 F Temperature Source Pulse Rate 58 L Pulse Rate [Lying] Pulse Rate [Sitting (for 1 minute prior to obtaining)] Pulse Rate [Standing (for 1 minute prior to obtaining)] Respiratory Rate 16 Respiratory Effort Respiratory Pattern Blood Pressure 155/105 H Blood Pressure [Lying] Blood Pressure [Sitting (for 1 minute prior to obtaining)] Blood Pressure [Standing (for 1 minute prior to obtaining)] Blood Pressure Mean 121 Blood Pressure Mean [Lying] Blood Pressure Mean [Sitting (for 1 minute prior to obtaining)] Blood Pressure Mean [Standing (for 1 minute prior to obtaining)] Pulse Ox 94 Oxygen Delivery Method MDM MDM MDM Narrative Medical decision making narrative: HISTORY OF PRESENT ILLNESS: 68-year-old male presents with concern for syncope. Notes he was getting haircut and he passed out in the chair. There is no report of fall or trauma. There is report per EMS that he stopped breathing. No CPR was performed. Patient notes he was very diaphoretic afterwards. Notes patient was lightheaded and nauseous prior. Notes family headache for the past 4 weeks looking the posterior part of his head. Notes he gets lightheaded at times when looking upwards. Denies any neck stiffness fever. Denies any vomiting diarrhea or other volume loss. Denies any bleeding diathesis. Denies any chest pain or palpitations. Denies a history of heart issues. Patient denies sudden onset or thunderclap headache, denies maximal intensity within 1 minute, vomiting, neck pain, stiffness, changes in vision, fever, history malignancy, syncope, or seizures associated with headache. REVIEW OF SYSTEMS: Pertinent positives: Syncope, headaches Pertinent negatives: Fever, chest pain PHYSICAL EXAM: Nursing triage notes reviewed, Vital signs reviewed Constitutional: please see mdm HENT: MMM Eyes: Pupils equal round and reactive to light, Extraocular muscles intact Neck: No stridor, no JVD, full neck ROM Lungs: Clear to auscultation, No wheezing or rales. No increased work of breathing, no conversational dyspnea, no accessory muscle use, no nasal flaring. No respiratory distress noted Heart: Regular rate and rhythm, No murmurs, No rubs and No gallops, 2+ distal pulses (radial, femoral, posterior tibial) in all extremities Abdomen: Soft, there is no tenderness, rigidity, rebound or guarding, no obvious peritoneal signs, no palpable pulsatile abdominal masses, no auscultated abdominal bruit : No CVAT Extremities: No edema Neuro: Alert and oriented x3, neuro exam at baseline, cranial nerves II through XII are intact. No pain with extraocular muscle movement. There is negative test of skew. 5 of 5 strength in upper and lower extremities in flexion extension. Intact sensation to light touch in upper and lower extremity dermatomes. No truncal or extremity ataxia. No dysdiadochokinesia. Normal gait. 2+ reflexes in upper and lower extremities. No meningeal signs. Negative Babinski. NIH of 0. MEDICAL DECISION MAKING: Chief Complaint: Syncope External records reviewed: Reviewed prior imaging studies: Reviewed echocardiogram from February 2023 showed ejection fraction of 60% with stage I diastolic function and no regional wall motion abnormalities Factors affecting care: polycythemia, GI bleed, hypothyroidism, hyperlipidemia, hypertension, GERD, BPH , Heart palpitations Social determinants of health: none History obtained from others: The patient's Consults: none [facility] Narrative: Patient was hemodynamically stable, afebrile and nontoxic-appearing. Exam without focal cardiopulmonary or neurologic deficits. I considered the following differential diagnosis: Arrhythmia, myocardial ischemia, ICH, PE, aortic dissection, anemia, electro disturbance, I obtained a broad lab and imaging workup to further elucidate the etiology of the patient's complaint. I initially resuscitated the patient with 500 cc bolus of normal saline. ALL IMAGES (IF OBTAINED) HAVE BEEN PERSONALLY REVIEWED AND INTERPRETED BY MYSELF. EKG with normal sinus rhythm, normal axis, normal intervals, no STEMI CTA of the head, CT of the brain showed no evidence of ICH or subcu dissection or significant hemodynamically ecchymosis High-sensitivity troponin is negative, no evidence of myocardial ischemia x 2 I have personally reviewed the patient's chest x-ray. Chest x-ray is unremarkable for pulmonary edema, pneumothorax, pneumonia or focal cardiopulmonary abnormality. CBC without leukocytosis, severe anemia, no thrombocytopenia. BMP without evidence of significant electrolyte abnormalities, no anion gap, no acute kidney injury. The synthesis of the patient's history, physical exam, labs images suggest no acute life-limiting etiology specifically no signs of significant heart failure, valvular abnormality, arrhythmia, ACS, intracranial bleed, significant arterial abnormality such as large vessel occlusion or dissection. The etiology remains unclear however it is unlikely be life-threatening. Patient will likely not benefit from hospitalization given low yield of inpatient echocardiograms and monitoring in a patient who is hemodynamically stable with no focal physical exam findings and negative labs images. Patient is appropriate for discharge home with close outpatient PCP follow-up for echocardiogram and Holter monitoring The patient and/or family, caregivers express understanding. The patient and/or family, caregivers agrees with the plan. Shared decision making: I will have a discussion with the patient and or visitors regarding risk/benefits of further testing or admission. They will be made aware of of the risk/benefits inherent in this decision they will be given the opportunity to voice understanding. Total critical care time today provided was at least 0 minutes. This excludes separately billable procedures. Critical care time (if documented) is secondary to the patient having high probability of clinically significant/life threatening deterioration in the patient's condition which required my urgent intervention. Impression: 1. Syncope 2. History hyperlipidemia 3. History of hypertension Dispo: Discharge This note was generated with [employer] dictation software. It may contain incorrect words, spelling, and punctuation that were not noted in review of the chart prior to signing. Lab Data Labs: Laboratory Results - last 24 hr 05/12/24 05/12/24 05/12/24 17:40 17:43 20:28 WBC 10.8 RBC 5.62 Hgb 17.1 H Hct 50.4 MCV 89.7 MCH 30.4 MCHC 33.9 RDW Std Deviation 46.5 H RDW Coeff of Veena 14.1 Plt Count 200 MPV 11.0 Sodium 139 Potassium 3.9 Chloride 104 Carbon Dioxide 29.0 Anion Gap 6 BUN 17 Creatinine 1.29 Estim Creat Clear Calc 74.91 Est GFR (MDRD) Af Amer 71 Est GFR (MDRD) Non-Af 59 L BUN/Creatinine Ratio 13.2 Glucose 99 Calcium 9.0 Troponin I High Sens 4 6 POC Glucose 98 Radiography Diagnostic Testing: Clinical Impression(s) from Imaging Studies Chest X-Ray 05/12/24 18:10 IMPRESSION: No radiographic evidence of acute cardiopulmonary disease. Electronically Signed: Len Chirinos MD at 18:43 EDT , Brain CT 05/12/24 18:35 IMPRESSION: Negative head/brain CT without intravenous contrast. Electronically Signed: Len Chirinos MD at 19:17 EDT , Head/Neck CTA 05/12/24 18:35 IMPRESSION: Moderate 50-60% stenosis of the M1 segment of the left middle cerebral artery best seen on the MIP reformatted images. All other vessels are widely patent. Electronically Signed: Len Chirinos MD at 19:26 EDT , Discharge Plan Triage Chief Complaint: Syncope ED Provider: Julien Peters Dx/Rx/DC Orders Clinical Impression: Syncope Instructions: ED Fainting, Uncertain Cause Prescriptions: No Action tamsulosin 0.4 mg capsule 0.4 mg PO DAILY tadalafil 20 mg tablet 20 mg PO ONCE PRN (Reason: sexual activity) Patient Comments: TAKE 1 TABLET BY MOUTH EVERY DAY NEEDED prednisone 20 mg tablet 40 mg PO DAILY Qty: 20 0RF levothyroxine 150 mcg tablet 150 mcg PO DAILY Qty: 90 3RF Primary Care Provider: Renetta Jaimes NP Referrals: Renetta Jaimes NP, [facility] [Primary Care Provider] - Activity Restrictions/Additional Instructions: Thank you for trusting us with your care today! Please take Tylenol (2 pills, 650 mg), ibuprofen (2 pills, 400 mg) every 6 hours as needed for pain and fever control. Please drink plenty of fluids by mouth I recommend Pedialyte, body armor or Gatorade. Please return to the emergency department if your symptoms change or worsen. Please follow with your primary care physician for further outpatient evaluation and management. Print Language: Faroese Disposition Disposition: Home, Self Care Discharge Date/Time: 05/12/24 21:54
[2024-05-12 18:07] LABS: Bedside Glucose 98 mg/dL (74-106)
--- NOTE | 2024-05-12 18:10 | RAD_ITS ---
EXAM: XR CHEST, 1 VIEW CLINICAL INDICATION: syncope TECHNIQUE: Frontal view of the chest. COMPARISON: 11/10/2020 FINDINGS: LUNGS AND PLEURAL SPACES: Unremarkable. No consolidation or edema. No pneumothorax. No effusion. HEART: Unremarkable. Cardiac silhouette not enlarged. MEDIASTINUM: Central airways and mediastinal contour are unremarkable. BONES/JOINTS: Unremarkable. No acute fracture. SOFT TISSUES: Unremarkable. RAD/Chest 1 View (Portable) IMPRESSION: No radiographic evidence of acute cardiopulmonary disease. Electronically Signed: Len Chirinos MD at 18:43 EDT ,
[2024-05-12 18:27] LABS: Hematocrit 50.4 % (40-54); Hemoglobin 17.1 g/dL (13.0-16.5); Mean Corp Hgb Conc 33.9 g/dL (32-36); Mean Corpuscular Hgb 30.4 pg (27.0-32.0); Mean Corpuscular Volume 89.7 fL (80-94); Platelet Count 200 K/mm3 (150-450); RBC Distribution Width CV 14.1 % (11.6-14.6); RBC Distribution Width SD 46.5 fl (35.1-43.9); Red Blood Count 5.62 M/mm3 (4.6-6.2); White Blood Count 10.8 K/mm3 (4.4-11.0)
--- NOTE | 2024-05-12 18:35 | CT_ITS ---
EXAM: CT ANGIOGRAPHY HEAD AND NECK WITH INTRAVENOUS CONTRAST CLINICAL INDICATION: syncope r/o LVO, stenosis, dissection TECHNIQUE: [place] of [place]/head and neck CT angiography protocol performed with intravenous contrast. This CT exam was performed using one or more of the following dose reduction techniques: automated exposure control, adjustment of the mA and/or kV according to patient size, and/or use of iterative reconstruction technique. MIP reconstructed images were created and reviewed. CONTRAST: IV 100mL [id number] COMPARISON: No relevant prior studies available. FINDINGS: HEAD: RIGHT ANTERIOR CEREBRAL ARTERY: Unremarkable. No occlusion or significant stenosis. Anterior communicating artery is present. No aneurysm. RIGHT MIDDLE CEREBRAL ARTERY: Unremarkable. No occlusion or significant stenosis. No aneurysm. RIGHT POSTERIOR CEREBRAL ARTERY: Unremarkable. No occlusion or significant stenosis. No aneurysm. RIGHT INTRACRANIAL INTERNAL CAROTID ARTERY: Unremarkable. No significant stenosis. No dissection or occlusion. RIGHT INTRACRANIAL VERTEBRAL ARTERY: Unremarkable. No significant stenosis. No dissection or occlusion. LEFT ANTERIOR CEREBRAL ARTERY: Unremarkable. No occlusion or significant stenosis. No aneurysm. LEFT MIDDLE CEREBRAL ARTERY: There is a 50-60% stenosis of the mid M1 segment of the left middle cerebral artery best seen on series 602 image 93 and series 603 image 151. No aneurysm. LEFT POSTERIOR CEREBRAL ARTERY: Unremarkable. No occlusion or significant stenosis. No aneurysm. LEFT INTRACRANIAL INTERNAL CAROTID ARTERY: Unremarkable. No significant stenosis. No dissection or occlusion. LEFT INTRACRANIAL VERTEBRAL ARTERY: Unremarkable. No significant stenosis. No dissection or occlusion. BASILAR ARTERY: Unremarkable. No occlusion or significant stenosis. No aneurysm. OTHER VASCULATURE: No vascular malformation. NECK: RIGHT COMMON CAROTID ARTERY: Unremarkable. No significant stenosis. No dissection or occlusion. RIGHT EXTRACRANIAL INTERNAL CAROTID ARTERY: Unremarkable. No significant stenosis. No dissection or occlusion. RIGHT EXTERNAL CAROTID ARTERY: Unremarkable. No occlusion. RIGHT EXTRACRANIAL VERTEBRAL ARTERY: Unremarkable. No significant stenosis. No dissection or occlusion. LEFT COMMON CAROTID ARTERY: Unremarkable. No significant stenosis. No dissection or occlusion. LEFT EXTRACRANIAL INTERNAL CAROTID ARTERY: Unremarkable. No significant stenosis. No dissection or occlusion. LEFT EXTERNAL CAROTID ARTERY: Unremarkable. No occlusion. LEFT EXTRACRANIAL VERTEBRAL ARTERY: Unremarkable. No significant stenosis. No dissection or occlusion. BRACHIOCEPHALIC AND SUBCLAVIAN ARTERIES: Unremarkable as visualized. No occlusion or significant stenosis. LUNG APICES: Unremarkable as visualized. HEAD and NECK: BONES/JOINTS: Unremarkable. No discrete lytic or blastic abnormalities. SOFT TISSUES: Unremarkable. CAROTID STENOSIS REFERENCE USING NASCET CRITERIA: % ICA stenosis = (1 - narrowest ICA diameter/diameter of distal cervical ICA) x 100. Mild - <50% stenosis. Moderate - 50-69% stenosis. Severe - 70-94% stenosis. Near occlusion - 95-99% stenosis. Occluded - 100% stenosis. CT/CTA Head AND Neck W/ Contrast IMPRESSION: Moderate 50-60% stenosis of the M1 segment of the left middle cerebral artery best seen on the MIP reformatted images. All other vessels are widely patent. Electronically Signed: Len Chirinos MD at 19:26 EDT ,
--- NOTE | 2024-05-12 18:35 | CT_ITS ---
EXAM: CT HEAD WITHOUT INTRAVENOUS CONTRAST CLINICAL INDICATION: ROSARIO, syncope TECHNIQUE: Multiple axial images were obtained of the head without intravenous contrast. This CT exam was performed using one or more of the following dose reduction techniques: automated exposure control, adjustment of the mA and/or kV according to patient size, and/or use of iterative reconstruction technique. COMPARISON: No relevant prior studies available. FINDINGS: BRAIN AND EXTRA-AXIAL SPACES: Unremarkable. No intra- or extra-axial hemorrhage. No evidence of acute infarct. No intracranial mass or mass effect. There is preservation of the hernandez/white matter interface. Posterior fossa structures are unremarkable. Ventricles are appropriate for age. No hydrocephalus. Basal cisterns are patent. BONES/JOINTS: Unremarkable. No discrete lytic or blastic abnormalities. SINUSES: Unremarkable as visualized. Clear. MASTOID AIR CELLS: Unremarkable. Clear. ORBITS: Visualized globes, extraocular muscles, optic nerves and retrobulbar fat appear unremarkable. CT/Brain/Head without Contrast IMPRESSION: Negative head/brain CT without intravenous contrast. Electronically Signed: Len Chirinos MD at 19:17 EDT ,
[2024-05-12 18:47] LABS: Anion Gap 6 (5-15); BUN 17 mg/dL (7-18); BUN/Creat Ratio 13.2 RATIO (10-20); Chloride 104 mmol/L (98-107); Creatinine, Serum 1.29 mg/dL (0.70-1.30); EST Glomerular Filtration Rate 59 mL/min (>60); Est Glom Filt Rate - Afr Amer 71 mL/min (>60); Estimated Creatinine Clearance 74.91 ml/min; Glucose 99 mg/dL (74-106); Potassium 3.9 mmol/L (3.5-5.1); Sodium Level 139 mmol/L (136-145); Troponin-I HS (w/2H Reflex) 4 pg/mL (3.0-78.0)
[2024-05-12 20:05] VITALS: PULSE 60; RESP 18
[2024-05-12 20:20] LABS: Reflex Troponin-HS? (from REC) Y
[2024-05-12 21:08] LABS: Troponin-I HS 6 pg/mL (3.0-78.0)
[2024-05-12 21:53] VITALS: BP 155/105; PULSE 58; RESP 16; TEMP 36.7; O2SAT 94
== END 2024-05-12 21:54 | disposition home or self-care (01) ==
PROVIDERS: Emergency Provider Emergency Medicine; PCP Nurse Practitioner; Visit Provider Emergency Medicine
DX: R55 Syncope and collapse (principal); I10 Essential (primary) hypertension; E78.5 Hyperlipidemia, unspecified; E03.9 Hypothyroidism, unspecified; N40.0 Benign prostatic hyperplasia without lower urinary tract symptoms; Z79.899 Other long term (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 therapy
CPT/HCPCS: 70450; 70496; 70498; 71045; 80048; 82962; 84484; 85027; 93005; 96360; 99285; J7030; Q9967; A4216

== ENCOUNTER → 2024-07-26 | Outpatient (CLI) | payer MEDICARE, SELFPAY ==
[2024-07-27 02:02] LABS: ALB/GLOB Ratio 1.6 RATIO (0.9-2.4); AST(SGOT) 21 U/L (15-37); Alanine Aminotransfer ALT/SGPT 31 U/L (16-61); Albumin, Serum 4.2 g/dL (3.2-5.0); Alkaline Phosphatase 70 U/L (45-117); Anion Gap 5 (5-15); BUN 15 mg/dL (7-18); BUN/Creat Ratio 8.4 RATIO (10-20); Calcium,Total 8.8 mg/dL (8.5-10.1); Chloride 107 mmol/L (98-107); Creatinine, Serum 1.79 mg/dL (0.70-1.30); EST Glomerular Filtration Rate 40 mL/min (>60); Est Glom Filt Rate - Afr Amer 49 mL/min (>60); Globulin 2.7 g/dL (2.2-4.2); Glucose 105 mg/dL (74-106); Potassium 4.7 mmol/L (3.5-5.1); Protein, Total 6.9 g/dL (6.4-8.2); Sodium Level 140 mmol/L (136-145)
[2024-07-28 12:10] LABS: Anti-Centromere B Ab <0.2 AI (0.0-0.9); Anti-Chromatin <0.2 AI (0.0-0.9); Anti-Jo <0.2 AI (0.0-0.9); Anti-Scleroderma-70 AB <0.2 AI (0.0-0.9); Anti-dsDNA Ab 5 IU/mL (0-9); RNP Ab <0.2 AI (0.0-0.9); SJOGREN'S Anti-SS-A test < 0.2 AI (0.0-0.9); SJOGREN'S Anti-SS-B test < 0.2 AI (0.0-0.9); Smith Ab <0.2 AI (0.0-0.9)
[2024-07-28 16:10] LABS: Lyme Scn Total Ab w/Rflx Negative (Negative)
== END | disposition home or self-care (01) ==
PROVIDERS: PCP Nurse Practitioner; Referring Provider Nurse Practitioner; Visit Provider Nurse Practitioner
DX: L30.9 Dermatitis, unspecified (principal); L42 Pityriasis rosea
CPT/HCPCS: 80053; 86225; 86235; 86618

== ENCOUNTER 2025-06-02 17:57 | Observation (INO) | payer MEDICARE, SELFPAY ==
[2025-06-02 17:59] VITALS: BP 136/88; PULSE 70; RESP 22; TEMP 36.6; O2SAT 95; BMI 30.2
--- NOTE | 2025-06-02 18:43 | CT_ITS ---
PROCEDURE: BRAIN/HEAD WITHOUT CONTRAST 06/02/2025 REASON FOR EXAM: HEADACHE, SYNCOPE TECHNIQUE: Procedure Code: CTBR Modality: CT Procedure: BRAIN/HEAD WITHOUT CONTRAST Coronal and Sagittal reconstruction series were provided. One or more dose reduction techniques were used (e.g., Automated exposure control, adjustment of the mA and/or kV according to patient size, use of iterative reconstruction technique. RADIATION DOSE SUMMARY: CTDlvol: Please see CT mGy DLP: Please see CT mGycm COMPARISON: Head CT May 12, 2024. FINDINGS: Note: Images through the base of the brain and posterior fossa including the brainstem are slightly degraded by beam hardening artifact from the adjacent calvarium. Brain: There is no evidence of acute intracranial hemorrhage. There is mild global parenchymal volume loss. No focal extra-axial fluid collection is seen. Appearance of the basal cisterns is unremarkable. There is no midline shift or herniation. No evidence of pneumocephalus. Incidental intracranial calcifications noted. There is intracranial calcific atherosclerosis. Mild microvascular ischemic changes are again noted. No parenchymal changes are seen suggestive of cytotoxic edema to indicate an acute territorial vascular infarct. Note is made that CT changes may lag clinical findings an acute stroke. If indicated, consider follow-up imaging or diffusion-weighted MRI. Ventricles: The ventricles do not appear obstructed. Pituitary: The pituitary fossa does not appear enlarged. The pituitary stalk does not appear deviated. Soft tissues: No pericranial scalp hematoma. Osseous: No acute calvarial fracture. No suspicious bone lesion. Visualized paranasal sinuses: Mild mucosal thickening within a few ethmoid air cells. No fluid in the paranasal sinuses. Mastoids: No fluid or opacification of mastoid air cells. Middle ear cavities: The visualized middle ear cavities are not opacified. CT/Brain/Head without Contrast IMPRESSION: No noncontrast CT evidence of acute intracranial abnormality. No evidence of acute territorial major vessel infarct, mass effect or acute int racranial hemorrhage. - Age related involutional changes again noted. - Intracranial atherosclerosis and mild microvascular ischemic changes again note d. - Other findings discussed above. Reading Location: [id number]
--- NOTE | 2025-06-02 18:43 | EKG12_ITS ---
Test Reason : DYSRHYTHMIA Blood Pressure : */* mmHG Vent. Rate : 69 BPM Atrial Rate : 69 BPM P-R Int : 164 ms QRS Dur : 94 ms QT Int : 418 ms P-R-T Axes : 22 -1 -5 degrees QTcB Int : 447 ms Normal sinus rhythm Nonspecific T wave abnormality Abnormal ECG Confirmed by Lawrence Freeman ([id number]), video effects editor JACKIE ESPINOSA ([id number]) on 06/05/2025 5:51:27 AM Referred By: JACKSON Confirmed By: Lawrence Freeman
--- NOTE | 2025-06-02 18:44 | EX.ED.DYSGE1 ---
HPI History of Present Illness Chief Complaint: Syncope Detail of Chief Complaint: Syncope Informant: patient Narrative Narrative: Patient presents with a syncopal episode that occurred prior arrival to the emergency department. [place]. [place] were sitting on a bridge when he started not feeling well. He started feeling lightheaded and dizzy. He then passed out for about 30 seconds. He was cool and clammy and pale. EMS was called and by the time they arrived he was awake and unremarkable vital signs. Patient states he had 1 similar episode about a year ago. Patient states that he had surgery for some cyst on his neck about a year ago and since that time has been having a lot of headaches to the right side of the head. Patient denies any injury with the syncopal episode as he was laid down from a seated position. Daughter states that he had some gurgling respirations but no seizure-like activity. [facility] Medical History Wears glasses Non-smoker Shortness of breath on exertion Cardiology follow-up encounter History of echocardiogram Lipoma of neck Lipoma Hyperlipidemia Essential hypertension Maxillary sinusitis, acute BPH (benign prostatic hyperplasia) GERD (gastroesophageal reflux disease) Hypothyroid Home Medications ?Medication ?Instructions ?Recorded ?Last Taken ?Type levothyroxine 150 mcg tablet 150 mcg PO DAILY #90 tabs 04/21/24 Unknown Rx Allergy/AdvReac Type Severity Reaction Status Date / Time No Known Allergies Allergy Verified 06/02/25 17:59 Family History Other Hypertension Lung cancer Thyroid disorder Surgical History S/P excision of lipoma H/O arthroscopy of knee Social History Smoking Status: Never smoker second hand exposure: No alcohol intake: never substance use type: does not use caffeine: Yes Type: coffee Number of servings: 1 what type of physical activity do you participate in: other details: active lifestyle, 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 michi/buddhist: Nondenominational seatbelt use: always do you feel safe at home: Yes ROS ROS ED ROS Narrative Syncope Review of Systems ROS Unobtainable: other Constitutional Constitutional ED: Reports lethargy; Denies chills, fever(s), sweats or weight loss Eyes Eyes: Denies blurry vision, change in vision or diplopia ENT ENT ED: Denies rhinorrhea or sore throat Cardiovascular Cardiovascular: Denies chest pain, orthopnea or racing heartbeat Respiratory/Chest Respiratory/Chest: Denies cough, dyspnea, dyspnea on exertion, orthopnea or sputum Gastrointestinal Gastrointestinal: Denies abdominal pain, diarrhea, nausea or vomiting Genitourinary Genitourinary ED: Denies dysuria, hematuria or urinary frequency Musculoskeletal Musculoskeletal: Denies arthralgias, back pain, myalgias or neck pain Integumentary Denies abscess, Abrasions or rash Neurologic Neurologic: Reports headache(s); Denies weakness Psychiatric Psychiatric: Denies anxiety, depression or suicidal thoughts Endocrine Endocrinology: Denies polydipsia, polyphagia or polyuria Hematologic/Lymphatic Hematologic/Lymphatic: Denies easy bleeding, easy bruising or lymphadenopathy Allergic/Immunologic Allergic/Immunologic ED: Denies mouth swelling, tongue swelling or urticaria EXAM Physical Exam Const Vital Signs: 06/02/25 17:59 06/02/25 18:03 Temperature 97.8 F Temperature Source Oral Pulse Rate 70 Respiratory Rate 22 H Respiratory Effort Normal Non-Labored Blood Pressure 136/88 H Blood Pressure Mean 104 Pulse Ox 95 Oxygen Delivery Method Room Air Positive well nourished and well developed General Appearance ED: well developed and NAD HEENT Reports TM's clear and moist mucous membranes normocephalic and atraumatic; Negative for trauma or tenderness Tympanic Membrane ED: Yes TM's clear Eyes PERRL and EOMs intact bilaterally General Eye ED: Negative for pale conjunctiva or scleral icterus Neck no lymphadenopathy, supple and no JVD General: Negative for tenderness Chest Wall inspection of chest normal and palpation of chest normal Chest: Negative for tenderness Resp normal respiratory effort and clear to auscultation bilaterally Effort and Inspection: Negative for respiratory distress or pain with movement Auscultation: Negative for rhonchi, wheezes or diminished lung sounds Cardio regular rate, regular rhythm, S1 normal heart sound, S2 normal heart sound and no murmurs Peripheral Pulses: pulses 2+ throughout GI normal to inspection, nondistended, normoactive bowel sounds, soft to palpation, non-tender, non-distended and no masses Back/Spine no CVA tenderness and no thoracic nor lumbar tenderness Extremity normal to inspection General Extremety ED: Negative for edema General Extremity: Negative for edema Neuro oriented x3, CN's II-XII intact bilaterally, no sensory deficits noted and gait normal Sensorium / Orientation: awake, alert, oriented to person, oriented to place and oriented to time Motor Exam: strength 5/5 throughout and strength abnormal Psych mental status grossly normal Skin no rashes or lesions noted and no wounds MDM MDM MDM Narrative Medical decision making narrative: Patient presents with syncopal episode. Symptoms occurred while seated. 1 other episode of syncope about a year ago. He denies any chest pain or palpitations or racing heart. IV line established. EKG obtained arrival showed heart rate of [address] changes. CBC with differential shows a white count of 6.6 with hemoglobin 16 and platelet count of 185. Chemistry is unremarkable. BUN 17 creatinine 1.34. Troponin was normal at 16. CT scan of the brain without contrast was unremarkable. Etiology of syncope unclear. Will discuss with hospitalist to evaluate patient for admission Lab Data Attestation: I reviewed the patient's lab results. Labs: Laboratory Results - last 24 hr 06/02/25 18:03 WBC 6.6 RBC 5.31 Hgb 16.2 Hct 46.6 MCV 87.8 MCH 30.5 MCHC 34.8 RDW Std Deviation 44.0 H RDW Coeff of Veena 13.7 Plt Count 185 MPV 11.1 Immature Gran % (Auto) 0.300 Neut % (Auto) 58.9 Lymph % (Auto) 20.7 Kidder % (Auto) 12.8 H Eos % (Auto) 5.9 H Baso % (Auto) 1.4 H Absolute Neuts (auto) 3.9 Absolute Lymphs (auto) 1.36 Nucleated RBC % 0 Sodium 139 Potassium 3.8 Chloride 103 Carbon Dioxide 23.8 Anion Gap 13 BUN 17 Creatinine 1.34 H Estim Creat Clear Calc 70.58 Est GFR (MDRD) Non-Af 58 L BUN/Creatinine Ratio 12.3 Glucose 134 H Calcium 8.8 Troponin T High Sens 16 Radiography Diagnostic Testing: Clinical Impression(s) from Imaging Studies Brain CT 06/02/25 18:43 IMPRESSION: No noncontrast CT evidence of acute intracranial abnormality. No evidence of acute territorial major vessel infarct, mass effect or acute intracranial hemorrhage. - Age related involutional changes again noted. - Intracranial atherosclerosis and mild microvascular ischemic changes again noted. - Other findings discussed above. Reading Location: [facility] Chest X-Ray 06/02/25 18:50 IMPRESSION: No acute pulmonary infiltrate seen. - Other findings discussed above. Reading Location: [facility] 1 view chest x-ray obtained interpreted by myself as no evidence of infiltrate or pneumothorax or acute disease process. Radiology in agreement. EKG Initial EKG: Attestation: I personally reviewed and interpreted this EKG as follows: Comments: Sinus rhythm with ventricular rate of [address] changes Discharge Plan Triage Chief Complaint: Syncope ED Provider: Chandan Ford Dx/Rx/DC Orders Clinical Impression: Syncope, Hypertension, Hypercholesterolemia Prescriptions: No Action levothyroxine 150 mcg tablet 150 mcg PO DAILY Qty: 90 3RF Primary Care Provider: Renetta Jaimes NP Referrals: Renetta Jaimes NP, [employer] [Primary Care Provider] - Print Language: Norwegian Disposition Disposition: Acute Care Hospital [facility]
--- NOTE | 2025-06-02 18:50 | RAD_ITS ---
PROCEDURE: CHEST 1 VIEW (PORTABLE) 06/02/2025 REASON FOR EXAM: SYNCOPE TECHNIQUE: Frontal view of the chest. COMPARISON: Chest x-ray November 10, 2020 FINDINGS: Lungs: The lungs are symmetrically expanded. Lung volumes are low. Mild crowding of vasculature or atelectasis at the lower lung teague. There is no consolidation. There is no peribronchial thickening. There is no pulmonary vascular redistribution. Pleura: No significant pleural effusion seen. There is no evidence of pneumothorax. Mediastinum: There is no mediastinal widening or mediastinal shift. Heart: The cardiac silhouette is not enlarged. Vascular: Tortuous thoracic aorta. Lashell: The pulmonary lashell are not enlarged or retracted. Osseous: No acute fracture is seen. RAD/Chest 1 View (Portable) IMPRESSION: No acute pulmonary infiltrate seen. - Other findings discussed above. Reading Location: [id number]
[2025-06-02] MEDS: 0.9% Normal Saline (1000mL) 1,000 ML 150 ML IV (18:52)
[2025-06-02 18:53] LABS: Hematocrit 46.6 % (40-54); Hemoglobin 16.2 g/dL (13.0-16.5); Immature Granulocytes Count 0.020 X10^3/uL (0.0-0.0); Mean Corp Hgb Conc 34.8 g/dL (32-36); Mean Corpuscular Volume 87.8 fL (80-94); Mean Platelet Vol. 11.1 fl (6.2-12.0); NRBC Flagged by Analyzer 0 % (0-5); Platelet Count 185 K/mm3 (150-450); RBC Distribution Width CV 13.7 % (11.6-14.6); RBC Distribution Width SD 44.0 fl (35.1-43.9); Red Blood Count 5.31 M/mm3 (4.6-6.2); White Blood Count 6.6 K/mm3 (4.4-11.0)
--- OUTSIDE RECORDS SUMMARY | 2025-06-02 18:56 | XMS RPT_ITS | CCD ---
Author Organization [facility] Inform ion Partnership [facility] Care Team Providers Care Lumber Straightened Name Role Phone MARYAM MEDINA Unavailable Unavailable MARYAM MEDINA Unavailable Unavailable LAFSHANTANU LUKE Unavailable Unavailable DONAL LUKE Unavailable Unavailable BASDC SARKARI N Unavailable Unavailable JIM ELIZONDO Unavailable Unavailable Bernarda Moses MD Primary Care Provider [phone] Bernarda Moses Referring Unavailable Bernarda Moses Attending Unavailable Bernarda Moses Primary Care Unavailable WILBERTO BLAKE MD Attending Unavailable OSKAR GALVAN Primary Care Unavailable OSKAR GALVAN Primary Care Unavailable PERCY PORRAS PRIYANKA Attending Unavailable KELLIE RODRIGUEZ DO Admitting Unavailable KRISTAN PORRAS, DAVE Consulting Unavailable STEPHANI PORRAS, ISAURO Consulting Unavailable Unavailable Primary Care Provider UnavailOskar Roth MD Primary Care Provider [phone] Fabian Mansfield MD Unavailable AMINA JAIMES Referring Unavailable OSKAR GALVAN Primary Care Unavailable Theodore BUSINESS DEVELOPMENT EXECUTIVE-C, Amina Primary Care Provider Theodore BUSINESS DEVELOPMENT EXECUTIVE-CAmina Attending Provider [phone] Theodore BUSINESS DEVELOPMENT EXECUTIVE-C, Amina Referring Provider [phone] Dr. Oskar Madison DO Attending Provider Dr. Yobani Garcia MD Attending Provider Theodore BUSINESS DEVELOPMENT EXECUTIVE, Amina Primary Care Unavailable Oskar Madison Attending Unavailable Theodore BUSINESS DEVELOPMENT EXECUTIVE, Amina Referring Unavailable Theodore BUSINESS DEVELOPMENT EXECUTIVE, Amina Primary Care Unavailable Yobani Garcia Attending Unavailable Theodore BUSINESS DEVELOPMENT EXECUTIVE, Amina Primary Care Unavailable Jaimes BUSINESS DEVELOPMENT EXECUTIVE, Amina Referring Unavailable Theodore BUSINESS DEVELOPMENT EXECUTIVE, Amina Attending Unavailable Medications Current Medications Medication Drug Class(es) Dates Sig (Normalized) Sig (Original) Acetaminophen (1 source) ACETAMINOPHEN (TYLENOL ORAL) Take by mouth as needed. Active gabapentin 300 mg oral capsule (2 sources) Anti-epileptic Agent Start: 07-22-2022 End: 01-18-2023 take 1 capsule by mouth at bedtime gabapentin (NEURONTIN) 300 MG capsule Take 1 Capsule by mouth at bedtime for 180 days. 90 Capsule 1 07/22/2022 Active levothyroxine sodium 0.15 mg oral tablet (20 sources) l-Thyroxine Start: 04-21-2024 take 1 tablet by mouth once daily Levothyroxine 150 mcg tablet Active 150 ug PO DAILY 90 3 April 21, 2024 12:00am Start: 03-27-2024 End: 04-21-2024 take 1 tablet by mouth once daily Levothyroxine 137 mcg tablet Discontinued 137 ug PO daily March 27, 2024 12:00am April 21, 2024 2:42pm Start: 05-06-2020 End: 11-11-2020 Levothyroxine 125 mcg tablet Discontinued 125 {tbl} PO DAILY May 06, 2020 12:00am November 11, 2020 12:09pm Start: 01-26-2020 End: 03-27-2024 take 1 tablet by mouth once daily Levothyroxine 125 mcg tablet Discontinued 125 ug PO DAILY 30 January 16, 2021 9:42am December 23, 2021 12:37pm take 1 tablet by denise th once daily before breakfast levothyroxine (SYNTHROID) 88 mcg tablet Take 88 mcg by mouth daily before breakfast. Active meloxicam 15 mg oral tablet (1 source) Nonsteroidal Anti-inflammatory Drug Start: 07-11-2021 take 1 tablet by mouth once daily meloxicam (MOBIC) 15 mg tablet Take 1 tablet by mouth once daily. 30 tablet 1 07/11/2021 Active methylPREDNISolone (1 source) Corticosteroid Start: 07-11-2021 methylPREDNISolone (MEDROL, IVA,) 4 mg Dose-Pack Use as directed 21 tablet 07/11/2021 Active rosuvastatin calcium 10 mg oral tablet (6 sources) HMG-CoA Reductase Inhibitor Start: 09-10-2021 take 1 tablet by mouth once daily rosuvastatin (CRESTOR) 10 MG tablet Take 1 Tablet by mouth daily. 90 Tablet 3 09/10/2021 Active Completed/Discontinued Medications Medication Drug Class(es) Dates Sig (Normalized) Sig (Original) allopurinol 100 mg oral tablet (20 sources) Xanthine Oxidase Inhibitor Start: 10-11-2022 End: 10-12-2022 take 1 tablet by mouth once daily Allopurinol 200 mg tablet Discontinued 200 mg PO DAILY 90 October 11, 2022 1:00am October 12, 2022 1:58pm gout Start: 09-09-2021 End: 11-23-2023 take 1 tablet by mouth twice daily Allopurinol 100 mg tablet Discontinued 100 mg PO TWICE A DAY 180 October 12, 2022 1:00am November 23, 2023 7:01pm Start: 09-09-2021 End: 10-11-2022 take 1 tablet by mouth once daily Allopurinol 100 mg tablet Discontinued 100 mg PO DAILY 90 September 09, 2021 1:00am October 11, 2022 5:28pm amoxicillin 875 mg / clavulanate 125 mg oral tablet (9 sources) Penicillin-class Antibacterial Start: 11-23-2023 End: 01-07-2024 Amoxicillin-Pot Clavulanate 875-125 mg tablet Discontinued 1 {tbl} PO TWICE A DAY November 23, 2023 1:00am January 07, 2024 4:28pm Start: 11-23-2023 End: 01-07-2024 take 1 tablet by mouth twice daily Amoxicillin-Pot Clavulanate Discontinued 1 TABLET PO TWICE A DAY November 23, 2023 1:00am January 07, 2024 4:28pm Start: 09-09-2021 End: 12-22-2021 Amoxicillin-Pot Clavulanate 875-125 mg tablet Discontinued 1 {tbl} PO TWICE A DAY September 09, 2021 1:00am December 22, 2021 4:14pm Start: 09-09-2021 End: 12-22-2021 take 1 tablet by mouth twice daily Amoxicillin-Pot Clavulanate Discontinued 1 TABLET PO TWICE A DAY September 09, 2021 1:00am December 22, 2021 4:14pm aspirin 81 mg delayed release oral tablet (2 sources) Platelet Aggregation Inhibitor, Nonsteroidal Anti-inflammatory Drug Start: 06-20-2024 End: 05-25-2025 take 1 tablet by mouth once daily Aspirin 81 mg tablet,delayed release (DR/EC) Discontinued 81 mg PO daily June 20, 2024 12:00am May 25, 2025 9:33am atorvastatin 20 mg oral tablet (7 sources) HMG-CoA Reductase Inhibitor Start: 11-22-2020 End: 09-04-2021 take 1 tablet by mouth once daily Atorvastatin 20 mg tablet Discontinued 20 mg PO DAILY 30 November 22, 2020 1:00am September 04, 2021 5:11pm On Hold: CT per pt d/t cost azithromycin 250 mg oral tablet (2 sources) Macrolide Antimicrobial Start: 06-20-2024 End: 06-25-2024 take 2 tablets by mouth once daily, then take 1 tablet by mouth once daily at mealtime Azithromycin 250 mg tablet Discontinued 250 mg PO daily 6 5 June 20, 2024 12:00am June 24, 2024 12:00am June 25, 2024 12:08am 2 po qd for 1 day then 1 po qd for 4 days with food or after eating cefuroxime 500 mg oral tablet (4 sources) Cephalosporin Antibacterial Start: 12-24-2022 End: 03-08-2023 take 1 tablet by mouth twice daily Cefuroxime Axetil 500 mg tablet Discontinued 500 mg PO TWICE A DAY December 24, 2022 12:00am March 08, 2023 2:07pm colchicine 0.6 mg oral tablet (5 sources) Start: 10-08-2022 End: 03-08-2023 take 1 tablet by mouth twice daily Colchicine 0.6 mg tablet Discontinued 0.6 mg PO TWICE A DAY October 08, 2022 1:00am March 08, 2023 2:07pm gout dexlansoprazole 30 mg delayed release oral capsule (6 sources) Proton Pump Inhibitor Start: 09-05-2018 End: 09-07-2018 take 1 capsule by mouth once daily Dexlansoprazole (Dexilant) 30 mg capsule,biphase delayed releas Discontinued 30 mg PO DAILY 26 10September 05, 2018 1:00am September 07, 2018 2:08pm doxycycline hyclate 100 mg oral capsule (3 sources) Tetracycline-class Drug Start: 01-07-2024 End: 03-27-2024 take 1 capsule by mouth twice daily Doxycycline Hyclate 100 mg capsule Discontinued 100 mg PO TWICE A DAY January 07, 2024 12:00am March 27, 2024 9:40am glucosamine 500 mg oral tablet (6 sources) Start: 11-21-2020 End: 04-23-2021 take 1 tablet by mouth once daily Glucosamine Hcl 500 mg tablet Discontinued 500 mg PO DAILY November 21, 2020 1:00am April 23, 2021 10:11am administer with a meal 24 hr metoprolol succinate 50 mg extended release oral tablet (11 sources) beta-Adrenergic Tommie Start: 12-24-2022 End: 03-08-2023 take 1 tablet by mouth once daily Metoprolol Succinate 50 mg tablet extended release 24 hr Discontinued 50 mg PO DAILY 90 December 24, 2022 12:00am March 08, 2023 2:08pm Start: 11-21-2020 take 1 tablet by denise th every twenty-four hours metoprolol succinate ER (TOPROL XL) 50 mg 24 hr tablet Take by mouth. 11/21/2020 Active Start: 11-21-2020 End: 09-04-2021 take 1 tablet by mouth once daily Metoprolol Succinate 50 mg tablet extended release 24 hr Discontinued 50 mg PO DAILY 30 November 21, 2020 1:00am September 04, 2021 5:11pm On Hold: DC per pt d/t cost multivitamin,dg-evgk-sompukw s (4 sources) Start: 11-21-2020 End: 04-23-2021 take 1 tablet by mouth once daily multivitamin,nh-hdpa-dsjstgio Discontinued 1 TABLET PO DAILY November 21, 2020 2:09pm April 23, 2021 10:50am Start: 11-21-2020 End: 04-23-2021 take 1 tablet by mouth once daily multivitamin,ml-jsut-xablezsl Discontinu ed 1 TABLET PO DAILY November 21, 2020 1:00am April 23, 2021 10:50am Start: 11-21-2020 End: 04-23-2021 take 1 tablet by mouth once daily multivitamin,vq-xoyr-ktmdeipe Discontinu ed 1 TABLET PO DAILY November 21, 2020 12:00am April 23, 2021 9:50am Multivitamin,As-Nqwv-Ugpyzwf s (Complete Multivitamin) tablet (2 sources) Start: 11-21-2020 End: 04-23-2021 Multivitamin,Kq-Jycx-Caexfnf s (Complete Multivitamin) tablet Discontinued 1 {tbl} PO DAILY November 21, 2020 1:00am April 23, 2021 10:50am pantoprazole 40 mg delayed release oral tablet (19 sources) Proton Pump Inhibit or Start: 09-07-2018 End: 10-08-2022 take 1 tablet by mouth once daily Pantoprazole 40 mg tablet,delayed release (DR/EC) Discontinued 40 mg PO DAILY 30 September 23, 2018 3:39pm May 06, 2020 10:22am predniSONE 20 mg oral tablet (15 sources) Start: 01-29-2025 End: 05-25-2025 take 2 tablets by mouth once daily Prednisone 20 mg tablet Discontinued 40 mg PO DAILY 20 January 29, 2025 12:00am May 25, 2025 9:33am Start: 05-09-2024 End: 06-20-2024 take 2 tablets by mouth once daily Prednisone 20 mg tablet Discontinued 40 mg PO DAILY 20 May 09, 2024 12:00am June 20, 2024 3:29pm Start: 10-08-2022 End: 03-08-2023 take 2 tablets by mouth once daily Prednisone 20 mg tablet Discontinued 40 mg PO DAILY 20 October 08, 2022 1:00am March 08, 2023 2:08pm Start: 10-08-2022 End: 03-08-2023 take 40 mg by mouth once daily Prednisone Discontinued 40 MG PO DAILY October 08, 2022 1:00am March 08, 2023 2:08pm Start: 09-04-2021 End: 12-22-2021 take 2 tablets by mouth once daily Prednisone 20 mg tablet Discontinued 40 mg PO DAILY September 04, 2021 1:00am December 22, 2021 4:14pm Start: 09-04-2021 End: 12-22-2021 take 40 mg by mouth once daily Prednisone Discontinued 40 MG PO DAILY September 04, 2021 1:00am December 22, 2021 4:14pm tadalafil 20 mg oral tablet (9 sources) Phosphodiesterase 5 Inhibitor Start: 03-08-2023 End: 05-25-2025 take 1 tablet by mouth once as needed Tadalafil 20 mg tablet Discontinued 20 mg PO ONCE as needed for sexual activity March 08, 2023 12:00am May 25, 2025 9:33am Start: 09-08-2021 tadalafil (TALISHA LIS) 20 MG tablet Take 1 Tablet by mouth as needed for Erectile Dysfunction. 30 Tablet 5 09/08/2021 Active tamsulosin hydrochloride 0.4 mg oral capsule (16 sources) alpha-Adrenergic Tommie Start: 03-08-2023 End: 05-25-2025 take 1 capsule by mouth once daily Tamsulosin 0.4 mg capsule Discontinued 0.4 mg PO DAILY March 08, 2023 12:00am May 25, 2025 9:33am Start: 11-21-2020 End: 09-04-2021 take 1 capsule by mouth at bedtime Tamsulosin 0.4 mg capsule Discontinued 0.4 mg PO AT BEDTIME 30 November 21, 2020 1:00am September 04, 2021 5:11pm thyroid (fpc) 90 mg oral tablet (20 sources) Start: 12-09-2018 End: 05-06-2020 take 1 tablet by mouth once daily Thyroid (Pork) ([place] Thyroid) 90 mg tablet Discontinued 90 mg PO DAILY 90 3 February 13, 2019 2:21pm May 06, 2020 10:22am Start: 10-20-2018 End: 05-06-2020 Thyroid (Pork) ([place] Thyro id) 60 mg tablet Discontinued 60 mg PO DAILY 30 October 20, 2018 1:00am May 06, 2020 10:22am + ARMOUR 15=75MG PO QD Start: 10-20-2018 End: 05-06-2020 take 1 mg by mouth once daily Thyroid (Pork) ([place] T hyroid) 15 mg tablet Discontinued 15 mg PO DAILY 30 October 20, 2018 1:00am May 06, 2020 10:22am +60 MG =75 MG ORALLY QD Start: 09-06-2018 End: 10-20-2018 take 1 tablet by mouth once daily Thyroid (Pork) ([place] Thyroid) 30 mg tablet Discontinued 60 mg PO DAILY 60 0 September 23, 2018 3:39pm October 20, 2018 2:33pm Problems Active Problems Problem Classification Problem Date Documented Da te Episodic/Chronic Abdominal pain (7 sources) Epigastric pain; Translations: [Epigastric pain] Onset: 8 12-22-2021 Episodic Cardiac dysrhythmias (3 sources) Palpitations; Translations: [Palpitations] 03-08-2023 Episodic Chronic kidney disease (1 source) Chronic kidney disease stage 3A ; Translations: [Stage 3a chronic kidney disease (HCC)] Chronic Conditions associated with dizziness or vertigo (2 sources) Dizziness; Translations: [Dizziness and giddiness] 06-20-2024 Episodic Disorders of lipid metabolism (11 sources) Hypercholesterolemia; Translations: [Pure hypercholesterolemia, unspecified] Onset: 2 Chronic Esophageal disorders (6 sources) Gastroesophageal reflux disease; Translations: [Gastro-esophageal reflux disease without esophagitis] 12-22-2021 Chronic Essential hypertension (12 sources) Hypertensive disorder; Translations: [Essential (primary) hypertension] 11-21-2020 Chronic Gastrointestinal hemorrhage (6 sources) Gastrointestinal hemorrhage; Translations: [Gastrointestinal hemorrhage, unspecified] 09-03-2020 Episodic Gout and other crystal arthropathies (14 sources) Gout; Translations: [Gout, unspecified] Onset: 2 Chronic Hyperplasia of prostate (20 sources) Benign prostatic hyperplasia; Translations: [Benign prostatic hyperplasia without lower urinary tract symptoms] Onset: 2 Chronic Nausea and vomiting (6 sources) Vomiting; Translations: [Vomiting, unspecified] 07-29-2020 Episodic Nonspecific chest pain (2 sources) Other chest pain; Translations: [Chest pain on exertion] Onset: 8 Episodic Other aftercare (7 sources) Patient encounter status; Translations: [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] Onset: 2 Episodic Other and unspecified benign neoplasm (2 sources) Lipoma of skin and subcutaneous tissue of neck; Translations: [Benign lipomatous neoplasm of skin and subcutaneous tissue of head, face and neck] 03-27-2024 Episodic Other and unspecified benign neoplasm (2 sources) Lipoma (clinical); Translations: [Benign lipomatous neoplasm, unspecified] 03-27-2024 Episodic Other connective tissue disease (6 sources) Foot pain; Translations: [Pain in left foot] 09-04-2021 Episodic Other hematologic conditions (6 sources) Erythrocytosis; Translations: [Secondary polycythemia] 11-10-2020 Episodic Other inflammatory condition of skin (2 sources) Pityriasis rosea; Translations: [Pityriasis rosea] 07-18-2024 Chronic Other lower respiratory disease (9 sources) Dyspnea; Translations: [Shortness of breath] Onset: 6 Episodic Other lower respiratory disease (6 sources) Multiple nodules of lung; Translations: [Other nonspecific abnormal finding of lung field] 05-28-2020 Episodic Other lower respiratory disease (2 sources) Dyspnea, unspecified; Translations: [Dyspnea, unspecified] Onset: 2 Episodic Other lower respiratory disease (1 source) Dyspnea on exertion; Translations: [Other forms of dyspnea] Episodic Other non-traumatic joint disorders (1 source) Pain in left ankle and joints of left foot; Translations: [Pain in left ankle and joints of left foot] Onset: 5 Episodic Other nutritional; endocrine; and metabolic disorders (3 sources) Body mass index 30+ - obesity; Translations: [Body mass index (BMI) 30.0-30.9, adult] Chronic Other skin disorders (3 sources) Sebaceous cyst of skin; Translations: [Sebaceous cyst] 11-23-2023 Episodic Other upper respiratory infections (4 sources) Acute maxillary sinusitis; Translations: [Acute maxillary sinusitis, unspecified] 12-24-2022 Episodic Otitis media and related conditions (2 sources) Otitis media of left ear; Translations: [Otitis media, unspecified, left ear] 06-20-2024 Episodic Residual codes; unclassified (6 sources) Exposure to carbon monoxide; Translations: [Contact with and (suspected) exposure to other hazardous substances] 11-10-2020 Episodic Spondylosis; intervertebral disc disorders; other back problems (7 sources) Neck pain; Translations: [Cervicalgia] 11-23-2023 Episodic Sprains and strains (2 sources) Strain of neck muscle; Translations: [Strain of muscle, fascia and tendon at neck level, initial encounter] 01-31-2025 Episodic Syncope (2 sources) Syncope; Translations: [Syncope and collapse] 05-20-2024 Episodic Thyroid disorders (13 sources) Acquired hypothyroidism; Translations: [Hypothyroidism, unspecified] Onset: 2 11-10-2020 Chronic Unclassified (1 source) Low back pain, unspecified; Translations: [Low back pain, unspecified] Onset: 5 Past or Other Problems Problem Classification Problem Date Documented Da te Episodic/Chronic Allergic reactions (7 sources) Acute dermatitis; Translations: [Dermatitis, unspecified] Onset: 08-16-2024 05-10-2024 Episodic Other aftercare (1 source) Long-term (current) use of other medications Onset: 06-24-2022 06-24-2022 Episodic Other and unspecified benign neoplasm (1 source) Melanocytic nevus of trunk; Translations: [Melanocytic nevi of trunk] Onset: 01-31-2016 01-31-2016 Episodic Other lower respiratory disease (1 source) Solitary pulmonary nodule; Translations: [Solitary pulmonary nodule] Onset: 01-31-2016 Episodic Other lower respiratory disease (1 source) Shortness of breath; Translations: [Shortness of breath] Onset: 04-10-2016 Episodic Other lower respiratory disease (1 source) Nodule of lung; Translations: [Solitary pulmonary nodule] Onset: 01-31-2016 01-31-2016 Episodic Other skin disorders (1 source) Eruption; Translations: [Rash and other nonspecific skin eruption] Onset: 01-31-2016 09-22-2021 Episodic Thyroid disorders (8 sources) Atrophy of thyroid - acquired; Translations: [Atrophy of thyroid (acquired)] Onset: 01-31-2016 Episodic Results Test Name Value Interpretation Reference Range Facility Ankle min 3 Viewson 05-25-20 Ankle min 3 Views [facility] [address] [place] [address] [id number] Ankle min 3 Views MR#: [id number] Acct: [id number] Name: ARTURO SNOW Rep #: [id number] : 1955 M 69 From: Ralph Torres MD PCP: MARISELA Burton Status: DEP AMB Study: Ankle min 3 Views Date of Exam: 05/25/25 Exam# [id number] Ordering Dr: Oskar Madison DO EXAM: XR Left Ankle Complete, 3 or More Views CLINICAL INDICATION: PAIN TECHNIQUE: Frontal, lateral and oblique views of the left ankle. COMPARISON: No relevant prior studies available. FINDINGS: BONES/JOINTS: Unremarkable. No dislocation. No acute fracture. SOFT TISSUES: Soft tissue swelling. RAD/Ankle min 3 Views IMPRESSION: 1. No acute fracture. 2. Soft tissue swelling. Reading Location: [facility] CC: MARISELA Jaimes; Dr. Oskar Madison DO Medical Claims Processor: Signed Normal [facility] Orthopedic Visit Reporton Orthopedic Visit Report [facility] [address] [place] [address] [address] [place] [id number] OFFICE VISIT Date of Service: 05/25/25 MR#: [id number] Acct: [id number] Name: ARTURO SNOW Rep #: [id number] : [id number] Provider: Dr. Oskar rosa DO Age/Sex: 69/M Location: [facility] [email or web address] Status: Signed Intake Vital Signs 01/29/25 17:05 05/22/25 09:40 05/25/25 09:31 Height 6 ft 3.5 in 6 ft 3.5 in 6 ft 3.5 in Weight: 244 lb BMI 30.1 Intake Visit Reasons: LEFT ANKLE Allergies No Known Allergies Allergy (Verified 05/25/25 09:32) Medications ???Medication ???Instructions ???Recorded ???Confirmed ???Type levothyroxine 150 mcg tablet 150 mcg PO DAILY #90 tabs 04/21/24 05/25/25 Rx Have you fallen in the past year?: No PFSH Medical History Wears glasses Non-smoker Shortness of breath on exertion Cardiology follow-up encounter History of echocardiogram Lipoma of neck Lipoma Hyperlipidemia Essential hypertension Maxillary sinusitis, acute BPH (benign prostatic hyperplasia) GERD (gastroesophageal reflux disease) Hypothyroid Surgical History S/P excision of lipoma H/O arthroscopy of knee Family History Other Hypertension Lung cancer Thyroid disorder Social History Smoking Status: Never smoker second hand exposure: No alcohol intake: never substance use type: does not use caffeine: Yes Type: coffee Number of servings: 1 what type of physical activity do you participate in: other details: active lifestyle, 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 Oskar Madison, DO 05/25/25 0927. Part of today???s visit was documented by Nga LYLES, acting as scribe. ARTURO SNOW is a 69 year old M here today for left ankle pain. Patient does have a hx of gout and does have it in his left big toe. He does have an appt today to get the gout looked at. He states that he has been having the ankle pain that started 6 months ago and has progressively gotten worse. He states that 5 years he twisted the ankle which did get better. He denies any recent in jury to the ankle. He states that the pain in the ankle is on the both the inner and outer side of the ankle. He was taking Ibuprofen for pain but has been advised to stop taking the Ibuprofen due to his kidney function. He has tried a neoprene/elastic brace for the ankle but has not gotten any relief. Ortho Exam General General: Yes no acute distress and Yes well groomed Neurologic: Yes alert and Yes oriented x3 Psychologic: Yes reasonable and appropriate Left Foot/Ankle Skin: No Ecchymosis, Soft Tissue Swelling or Erythema Exam: Yes TTP ATFL, TTP Deltoid Ligament, eversion normal and inversion normal; No Ecchymosis, Soft tissue swelling, Erythema, TTP Lateral Malleolus, TTP Medial Malleolus, TTP distal 5th metatarsal, tender to palpate calcaneofibular ligament, TTP Retrocalcaneal bursa, TTP Peroneal or peroneal snapping Compartments: soft Anterior Drawer: 0 Tests: Pate Test: 1 and Squeeze Test: 1 Motor: Ankle Dorsiflextion: 5, Ankle Plantar Flexion: 5, Ankle Eversion: 5, Ankle Inversion: 5 and EHL: 5 Pulses: Dorsalis Pedis: 2 and Posterior Tibial: 2 ANKLE: no flat foot swelling around mtp with bunion negative drawer tender over deltoid ligament inversion 17 eversion 6 plantar flexion 50 3 dorsi flexion with lateral sided pain non tender over poroneals Supplemental Info 05/25/2025 x-ray left ankle: there is no acute findings preserved joint space Coding Level of Care Code Off vis,new,level 3 Diagnoses Gout M10.9 Acute left ankle pain M25.572 Chronicity: acute Assessment and Plan Assessment and Plan (1) Gout: Status: Acute (2) Ankle pain, left: Status: Acute Qualifiers: Chronicity: acute Qualified Code(s): M25.572 - Pain in left ankle and joints of left foot Orders: Orders Ankle min 3 Views Today M25.572 - Pain in left ankle and joints of left foot Plan Patient is here today for left ankle pain. He has known gout and is currently experiencing a gout flare in his big toe. I spoke with patient that he should get his gout treated first as it might be contributing to his ankle pain. I do not appreciate any significant findings on clinical or radiological examination besides pain, if after being treated for gout he is still having pain I would recommend he see Dr. Rubio foot and ankle specialist for second opinion. I spoke with patient that I (more content not included)... Normal [facility] CBC (INCLUDES DIFF/PLT)on Basophils (Bld) [#/Vol] 0.059 10*3/uL Normal 0-200 [facility] Comment on above: Performed By: #### 7 600, [id number], 5363, [id number] #### [facility] [place] [address] [employer] Deputy Sheriff: Wero Conn MD Basophils/100 WBC (Bld) 0.7 % Normal [facility] Comment on above: Performed By: #### 7 600, 6399, 5363, [id number] #### [facility] [place] [address] [employer] Deputy Sheriff: Wero Conn MD Eosinophils (Bld) [#/Vol] 0.302 10*3/uL Normal 15-500 [facility] Comment on above: Performed By: #### 7 600, 6399, 5363, [id number] #### [facility] [place] [address] [employer] Deputy Sheriff: Wero Conn MD Eosinophils/100 WBC (Bld) 3.6 % Normal [facility] Comment on above: Performed By: #### 7 600, 6399, 5363, 58910 #### [facility] [place] [address] Grand Jury Deputy Sheriff: Wero Conn MD Erythrocyte distribution width (RBC) [Ratio] 13.7 % Normal 11.0-15.0 [facility] Comment on above: Performed By: #### 7 600, 6399, 5363, 23259 #### [facility] [place] [address] [employer] Jury Deputy Sheriff: Wero Conn MD Hematocrit (Bld) [Volume fraction] 51.1 % High 38.5-50.0 [facility] Comment on above: Performed By: #### 7 600, 6399, 5363, 74377 #### [facility] [place] [address] [employer] Jury Deputy Sheriff: Wero Conn MD Hemoglobin (Bld) [Mass/Vol] 16.9 g/dL Normal 13.2-17.1 [facility] Comment on above: Performed By: #### 7 600, 6399, 5363, 12677 #### [facility] [place] [address] [employer] Jury Deputy Sheriff: Wero Conn MD Lymphocytes (Bld) [#/Vol] 1.21 10*3/uL Normal 850-3900 [facility] Comment on above: Performed By: #### 7 600, 6399, 5363, 29923 #### [facility] [place] [address] [employer] Jury Deputy Sheriff: Wero Conn MD Lymphocytes/100 WBC (Bld) 14.4 % Normal [facility] Comment on above: Performed By: #### 7 600, 6399, 5363, 31087 #### [facility] [place] [address] [employer] Jury Deputy Sheriff: Wero Conn MD MCH (RBC) [Entitic mass] 30.7 pg Normal 27.0-33.0 [facility] Comment on above: Performed By: #### 7 600, 6399, 5363, 87204 #### [facility] [place] [address] [employer] Jury Deputy Sheriff: Wero Conn MD MCHC (RBC) [Mass/Vol] 33.1 g/dL Normal 32.0-36.[address] [facility] Comment on above: Result Comment: For adults, a slight decrease in the calculated MCHC value (in the range of 30 to 32 g/dL) is most likely not clinically significant; however, it should be interpreted with caution in correlation with other red cell parameters and the patient's clinical condition. Performed By: #### 7 600, 6399, 5363, 80818 #### [facility] [place] [address] [employer] Jury Deputy Sheriff: Wero Conn MD MCV (RBC) [Entitic vol] 92.7 fL Normal 80.0-100.0 [facility] Comment on above: Performed By: #### 7 600, 6399, 5363, 62554 #### [facility] [place] [address] [employer] Jury Deputy Sheriff: Wero Conn MD Monocytes (Bld) [#/Vol] 0.773 10*3/uL Normal 200-950 [facility] Comment on above: Performed By: #### 7 600, 6399, 5363, 10876 #### [facility] [place] [address] [employer] Jury Deputy Sheriff: Wero Conn MD Monocytes/100 WBC (Bld) 9.2 % Normal [facility] Comment on above: Performed By: #### 7 600, 6399, 5363, 04937 #### [facility] [place] [address] [employer] Jury Deputy Sheriff: Wero Conn MD Neutrophils (Bld) [#/Vol] 6.056 10*3/uL Normal 2724-7295 [facility] Comment on above: Performed By: #### 7 600, 6399, 5363, 88533 #### [facility] of [address], [address] [place] [address] Grand Jury Deputy Sheriff: Wero Conn MD Neutrophils/100 WBC (Bld) 72.1 % Normal [facility] Comment on above: Performed By: #### 7 600, 6399, 5363, 47349 #### [facility] [place] [address] [employer] Jury Deputy Sheriff: Wero Conn MD Platelet mean volume (Bld) [Entitic vol] 10.9 fL Normal 7.5-12.5 [facility] Comment on above: Performed By: #### 7 600, 6399, 5363, 60187 #### [facility] [place] [address] [employer] Jury Deputy Sheriff: Wero Conn MD Platelets (Bld) [#/Vol] 203 10*3/uL Normal 140-400 [facility] Comment on above: Performed By: #### 7 600, 6399, 5363, 29190 #### [facility] [place] [address] [employer] Jury Deputy Sheriff: Wero Conn MD RBC (Bld) [#/Vol] 5.51 10*6/uL Normal 4.20-5.80 [facility] Comment on above: Performed By: #### 7 600, 6399, 5363, 79796 #### [facility] [place] [address] [employer] Jury Deputy Sheriff: Wero Conn MD WBC (Bld) [#/Vol] 8.4 10*3/uL Normal 3.8-10.8 [facility] Comment on above: Performed By: #### 7 600, 6399, 5363, 93507 #### [facility] [place] [address] [employer] Deputy Sheriff: Wero Conn MD COMPREHENSIVE METABOLIC PANE [facility] 05-05-2025 Albumin [Mass/Vol] 4.4 g/dL Normal 3.6-5.1 [facility] Comment on above: Performed By: #### 7 600, 6399, 5363, 39027 #### [facility] of [address], [address] [place] [address] [employer] Jury Deputy Sheriff: Wero Conn MD Albumin/Globulin [Mass ratio] 2.1 {ratio} Normal 1.0-2.5 [facility] Comment on above: Performed By: #### 7 600, 6399, 5363, 47897 #### [facility] of [address], [address] [place] [address] [employer] Jury Deputy Sheriff: Wero Conn MD ALP [Catalytic activity/Vol] 70 U/L Normal 35-144 [facility] Comment on above: Performed By: #### 7 600, 6399, 5363, 70254 #### [facility] of [address], [address] [place] [address] [employer] Jury Deputy Sheriff: Wero Conn MD ALT [Catalytic activity/Vol] 15 U/L Normal 9-46 [facility] Comment on above: Performed By: #### 7 600, 6399, 5363, 09364 #### [facility] of [address], [address] [place] [address] [employer] Jury Deputy Sheriff: Wero Conn MD AST [Catalytic activity/Vol] 17 U/L Normal 10-35 [facility] Comment on above: Performed By: #### 7 600, 6399, 5363, 94850 #### [facility] of [address], [address] [place] [address] [employer] Jury Deputy Sheriff: Wero Conn MD Bilirubin [Mass/Vol] 2.0 mg/dL High 0.2-1.2 [facility] Comment on above: Performed By: #### 7 600, 6399, 5363, 73702 #### [facility] of [address], [address] [place] [address] [employer] Deputy Sheriff: Wero Conn MD Calcium [Mass/Vol] 8.9 mg/dL Normal 8.6-10.3 [facility] Comment on above: Performed By: #### 7 600, 6399, 5363, 95558 #### [facility] of [address], [address] [place] [address] [employer] Jury Deputy Sheriff: Wero Conn MD Chloride [Moles/Vol] 104 mmol/L Normal 98-110 [facility] Comment on above: Performed By: #### 7 600, 6399, 5363, 96429 #### [facility] of [address], [address] [place] [address] [employer] Jury Deputy Sheriff: Wero Conn MD CO2 [Moles/Vol] 27 mmol/L Normal 20-32 [facility] Comment on above: Performed By: #### 7 600, 6399, 5363, 48217 #### [facility] [place] [address] [employer] Jury Deputy Sheriff: Wero Conn MD Creatinine [Mass/Vol] 1.36 mg/dL High 0.70-1.[address] [facility] Comment on above: Performed By: #### 7 600, 6399, 5363, 85211 #### [facility] [place] [address] [employer] Jury Deputy Sheriff: Wero Conn MD GFR/1.73 sq M.predicted among non-blacks MDRD (S/P/Bld) [Vol rate/Area] 57 mL/min/{1.73_m2} Low > OR = 60 [facility] Comment on above: Performed By: #### 7 600, 6399, 5363, 38828 #### [facility] [place] [address] [employer] Jury Deputy Sheriff: Wero Conn MD Globulin (S) [Mass/Vol] 2.1 g/dL Normal 1.9-3.7 [facility] Comment on above: Performed By: #### 7 600, 6399, 5363, 91988 #### [facility] [place] [address] [employer] Jury Deputy Sheriff: Wero Conn MD Glucose [Mass/Vol] 90 mg/dL Normal 65-99 [facility] Comment on above: Result Comment: Fasting reference interval Performed By: #### 7 600, 6399, 5363, 35652 #### [facility] of [address] [place] [address] Grand Jury Deputy Sheriff: Wero Conn MD Potassium [Moles/Vol] 4.2 mmol/L Normal 3.5-5.3 [facility] Comment on above: Performed By: #### 7 600, 6399, 5363, 53560 #### [facility] of [address], [address] [place] [address] [employer] Jury Deputy Sheriff: Wero Conn MD Protein [Mass/Vol] 6.5 g/dL Normal 6.1-8.1 [facility] Comment on above: Performed By: #### 7 600, 6399, 5363, 06933 #### [facility] of [address], [address] [place] [address] [employer] Jury Deputy Sheriff: Wero Conn MD Sodium [Moles/Vol] 140 mmol/L Normal 135-146 [facility] Comment on above: Performed By: #### 7 600, 6399, 5363, 77904 #### [facility] of [address], [address] [place] [address] [employer] Jury Deputy Sheriff: Wero Conn MD Urea nitrogen [Mass/Vol] 15 mg/dL Normal 7-25 [facility] Comment on above: Performed By: #### 7 600, 6399, 5363, 22313 #### [facility] [place] [address] [employer] Jury Deputy Sheriff: Wero Conn MD Urea nitrogen/Creatinine [Mass ratio] 11 mg/mg Normal 6-22 [facility] Comment on above: Performed By: #### 7 600, 6399, 5363, 97888 #### [facility] of [address], [address] [place] [address] [employer] Jury Deputy Sheriff: Wero Conn MD LIPID PANEL, [facility] Cholesterol [Mass/Vol] 207 mg/dL High <200 [facility] Comment on above: Order Comment: FASTI NG:YES FASTING: YES Performed By: #### 7 600, 6399, 5363, 31301 #### [facility] of [address], [address] [place] [address] [employer] Deputy Sheriff: Wero Conn MD Cholesterol in HDL [Mass/Vol] 36 mg/dL Low > OR = 40 [facility] Comment on above: Order Comment: FASTI NG:YES FASTING: YES Performed By: #### 7 600, 6399, 5363, 33060 #### [facility] [address], [address] [place] [address] [employer] Jury Deputy Sheriff: Wero Conn MD Cholesterol in LDL [Mass/Vol] 146 mg/dL High [facility] Comment on above: Order Comment: FASTI NG:YES FASTING: YES Result Comment: Refe rence range: <100 Desirable range <100 mg/dL for primary prevention; <70 mg/dL for patients with CHD or diabetic patients with > or = 2 CHD risk factors. LDL-C is now calculated using the Jeni calculation, which is a validated novel method providing better accuracy than the Friedewald equation in the estimation of LDL-C. Jame SS et al. SHARONA. 2013;310(19): 4219-0817 (http://education.Fotech/faq/IUU775) Performed By: #### 7 600, 6399, 5363, 37926 #### [facility] [address], [address] [place] [address] [employer] Jury Deputy Sheriff: Wero Conn MD Cholesterol.total/Cho lesterol in HDL [Mass ratio] 5.8 {ratio} High <5.0 [facility] Comment on above: Order Comment: FASTI NG:YES FASTING: YES Performed By: #### 7 600, 6399, 5363, 40077 #### [facility] [address], [address] [place] [address] [employer] Jury Deputy Sheriff: Wero Conn MD NON HDL CHOLESTEROL 171 mg/dL (calc) High <130 [facility] Comment on above: Order Comment: FASTI NG:YES FASTING: YES Result Comment: For patients with diabetes plus 1 major ASCVD risk factor, treating to a non-HDL-C goal of <100 mg/dL (LDL-C of <70 mg/dL) is considered a therapeutic option. Performed By: #### 7 600, 6399, 5363, 59387 #### [facility] [place] [address] [employer] Jury Deputy Sheriff: Wero Conn MD Triglyceride [Mass/Vol] 124 mg/dL Normal <150 [facility] Comment on above: Order Comment: FASTI NG:YES FASTING: YES Performed By: #### 7 600, 6399, 5363, 12459 #### [facility] [place] [address] [employer] Jury Deputy Sheriff: Wero Conn MD PSA, TOTALon 05-05-2025 PSA, TOTAL 1.25 ng/mL Normal < OR = 4.00 [facility] Comment on above: Result Comment: The total PSA value from this assay system is standardized against the WHO standard. The test result will be approximately 20% lower when compared to the equimolar-standardized total PSA (Bruce Natasha). Comparison of serial PSA results should be interpreted with this fact in mind. This test was performed using the Siemens chemiluminescent method. Values obtained from different assay methods cannot be used interchangeably. PSA levels, regardless of value, should not be interpreted as absolute evidence of the presence or absence of disease. Performed By: #### 7 600, 6399, 5363, 90186 #### [facility] [place] [address] [employer] Jury Deputy Sheriff: Wero Conn MD TSHon 05-05-2025 TSH Qn 3.59 m[IU]/L Normal 0.40-4.50 [facility] Comment on above: Performed By: #### 7 600, 6399, 5363, 48327 #### [facility] [place] [address] [employer] Jury Deputy Sheriff: Wero Conn MD XR CERVICAL 4V AP/LAT/OBLon 02-05-2025 XR CERVICAL 4V AP/LAT/OBL * * *Final Report* * * DATE OF EXAM: Feb 05 2025 3:12PM LDX 5311 - XR CERVICAL 4V AP/LAT/OBL / PROCEDURE REASON: M43.6 Torticollis * * * * Physician Interpretation * * * * EXAMINATION / TECHNIQUE: XR CERVICAL 4V AP/LAT/OBL HISTORY: Pt. states surgery nine months ago to remove a cyst neck area, ever since c/o pain/H.A.'s M43.6 Torticollis COMPARISON: None. RESULT: Counting reference: Craniocervical junction. Anatomic Variants: None. Vertebral body heights and sagittal alignment are maintained. Moderate to severe multilevel degenerative disc disease. Severe multilevel bilateral bony neural foraminal narrowing. Prevertebral soft tissues are normal. IMPRESSION: Degenerative changes as described. Medical Claims Processor: [facility] Transcribe Date/Time: Feb 08 2025 9:52P Dictated by : SUSAN PITTMAN MD This examination was interpreted and the report reviewed and electronically signed by: SUSAN PITTMAN MD on Feb 08 2025 9:52PM EST [id number] Normal [facility] XR LUMBAR PARS 4V AP/LAT/OBL X2on 02-05-2025 XR LUMBAR PARS 4V AP/LAT/OBL X2 * * *Final Report* * * DATE OF EXAM: Feb 05 2025 3:12PM LDX 5233 - XR LUMBAR PARS 4V AP/LAT/OBL X2 / PROCEDURE REASON: M54.50 lower back pain * * * * Physician Interpretation * * * * EXAMINATION / TECHNIQUE: XR LUMBAR PARS 4V AP/LAT/OBL X2 HISTORY: Low back pain, no trauma. M54.50 lower back pain COMPARISON: Lumbar spine radiographs dated 12/11/2012. RESULT: Counting reference: Lumbosacral junction. For the purposes of this report, L4-5 is considered the level of the iliac crest and assume there are 5 lumbar-type vertebrae. Anatomic variant: None. Vertebral body heights and sagittal alignment are maintained. Moderate to severe multilevel degenerative disc disease. Lower lumbar facet hypertrophy. Sacroiliac joints are intact. IMPRESSION: Degenerative changes as described. Medical Claims Processor: [facility] Transcribe Date/Time: Feb 08 2025 9:52P Dictated by : SUSAN PITTMAN MD This examination was interpreted and the report reviewed and electronically signed by: SUSAN PITTMAN MD on Feb 08 2025 9:53PM EST [id number] Normal [facility] CBC (INCLUDES DIFF/PLT)on Basophils (Bld) [#/Vol] 0.08 10*3/uL Normal 0-200 [facility] Comment on above: Performed By: #### 5 363, 6399, 7600, 37457 #### [facility] [place] [address] [employer] Jury Deputy Sheriff: Wero Conn MD Basophils/100 WBC (Bld) 1.1 % Normal [facility] Comment on above: Performed By: #### 5 363, 6399, 7600, 76276 #### [facility] [place] [address] [employer] Jury Deputy Sheriff: Wero Conn MD Eosinophils (Bld) [#/Vol] 0.299 10*3/uL Normal 15-500 [facility] Comment on above: Performed By: #### 5 363, 6399, 7600, 35382 #### [facility] of [address], [address] [place] [address] [employer] Jury Deputy Sheriff: Wero Conn MD Eosinophils/100 WBC (Bld) 4.1 % Normal [facility] Comment on above: Performed By: #### 5 363, 6399, 7600, 58224 #### [facility] [place] [address] [employer] Jury Deputy Sheriff: Wero Conn MD Erythrocyte distribution width (RBC) [Ratio] 13.1 % Normal 11.0-15.0 [facility] Comment on above: Performed By: #### 5 363, 6399, 7600, 28958 #### [facility] [place] [address] Grand Jury Deputy Sheriff: Wero Conn MD Hematocrit (Bld) [Volume fraction] 53.4 % High 38.5-50.0 [facility] Comment on above: Performed By: #### 5 363, 6399, 7600, 97338 #### [facility] [place] [address] Grand Jury Deputy Sheriff: Wero Conn MD Hemoglobin (Bld) [Mass/Vol] 17.8 g/dL High 13.2-17.1 [facility] Comment on above: Performed By: #### 5 363, 6399, 7600, 99602 #### [facility] of [address], [address] [place] [address] Grand Jury Deputy Sheriff: Wero Conn MD Lymphocytes (Bld) [#/Vol] 1.161 10*3/uL Normal 850-3900 [facility] Comment on above: Performed By: #### 5 363, 6399, 7600, 61178 #### [facility] of [address], [address] [place] [address] [employer] Jury Deputy Sheriff: Wero Conn MD Lymphocytes/100 WBC (Bld) 15.9 % Normal [facility] Comment on above: Performed By: #### 5 363, 6399, 7600, 59574 #### [facility] [place] [address] [employer] Jury Deputy Sheriff: Wero Conn MD MCH (RBC) [Entitic mass] 30.7 pg Normal 27.0-33.0 [facility] Comment on above: Performed By: #### 5 363, 6399, 7600, 41090 #### [facility] [place] [address] Grand Jury Deputy Sheriff: Wero Conn MD MCHC (RBC) [Mass/Vol] 33.3 g/dL Normal 32.0-36.[address] [facility] Comment on above: Result Comment: For adults, a slight decrease in the calculated MCHC value (in the range of 30 to 32 g/dL) is most likely not clinically significant; however, it should be interpreted with caution in correlation with other red cell parameters and the patient's clinical condition. Performed By: #### 5 363, 6399, 7600, 08475 #### [facility] [place] [address] Grand Jury Deputy Sheriff: Wero Conn MD MCV (RBC) [Entitic vol] 92.2 fL Normal 80.0-100.0 [facility] Comment on above: Performed By: #### 5 363, 6399, 7600, 22572 #### [facility] of [address], [address] [place] [address] [employer] Jury Deputy Sheriff: Wero Conn MD Monocytes (Bld) [#/Vol] 0.628 10*3/uL Normal 200-950 [facility] Comment on above: Performed By: #### 5 363, 6399, 7600, 38134 #### [facility] of [address], [address] [place] [address] Grand Jury Deputy Sheriff: Wero Conn MD Monocytes/100 WBC (Bld) 8.6 % Normal [facility] Comment on above: Performed By: #### 5 363, 6399, 7600, 08880 #### [facility] of [address], [address] [place] [address] Grand Jury Deputy Sheriff: Wero Conn MD Neutrophils (Bld) [#/Vol] 5.132 10*3/uL Normal 0698-9350 [facility] Comment on above: Performed By: #### 5 363, 6399, 7600, 05029 #### [facility] of [address], [address] [place] [address] Grand Jury Deputy Sheriff: Wero Conn MD Neutrophils/100 WBC (Bld) 70.3 % Normal [facility] Comment on above: Performed By: #### 5 363, 6399, 7600, 75863 #### [facility] of [address], [address] [place] [address] Grand Jury Deputy Sheriff: Wero Conn MD Platelet mean volume (Bld) [Entitic vol] 11.4 fL Normal 7.5-12.5 [facility] Comment on above: Performed By: #### 5 363, 6399, 7600, 04364 #### [facility] of [address], [address] [place] [address] Grand Jury Deputy Sheriff: Wero Conn MD Platelets (Bld) [#/Vol] 188 10*3/uL Normal 140-400 [facility] Comment on above: Performed By: #### 5 363, 6399, 7600, 78642 #### [facility] of [address], [address] [place] [address] Grand Jury Deputy Sheriff: Wero Conn MD RBC (Bld) [#/Vol] 5.79 10*6/uL Normal 4.20-5.80 [facility] Comment on above: Performed By: #### 5 363, 6399, 7600, 63213 #### [facility] of [address], [address] [place] [address] Grand Jury Deputy Sheriff: Wero Conn MD WBC (Bld) [#/Vol] 7.3 10*3/uL Normal 3.8-10.8 [facility] Comment on above: Performed By: #### 5 363, 6399, 7600, 87921 #### [facility] [place] [address] Grand Jury Deputy Sheriff: Wero Conn MD [facility] Albumin [Mass/Vol] 4.5 g/dL Normal 3.6-5.1 [facility] Comment on above: Performed By: #### 5 363, 6399, 7600, 64056 #### [facility] [place] [address] Grand Jury Deputy Sheriff: Wero Conn MD Albumin/Globulin [Mass ratio] 2.0 {ratio} Normal 1.0-2.5 [facility] Comment on above: Performed By: #### 5 363, 6399, 7600, 05800 #### [facility] [place] [address] Grand Jury Deputy Sheriff: Wero Conn MD ALP [Catalytic activity/Vol] 61 U/L Normal 35-144 [facility] Comment on above: Performed By: #### 5 363, 6399, 7600, 28180 #### [facility] [place] [address] Grand Jury Deputy Sheriff: Wero Conn MD ALT [Catalytic activity/Vol] 16 U/L Normal 9-46 [facility] Comment on above: Performed By: #### 5 363, 6399, 7600, 73794 #### [facility] of [address], [address] [place] [address] Grand Jury Deputy Sheriff: Wero Conn MD AST [Catalytic activity/Vol] 16 U/L Normal 10-35 [facility] Comment on above: Performed By: #### 5 363, 6399, 7600, 13676 #### [facility] of [address], [address] [place] [address] Grand Jury Deputy Sheriff: Wero Conn MD Bilirubin [Mass/Vol] 2.1 mg/dL High 0.2-1.2 [facility] Comment on above: Performed By: #### 5 363, 6399, 7600, 90251 #### [facility] of [address], [address] [place] [address] Grand Jury Deputy Sheriff: Wero Conn MD Calcium [Mass/Vol] 9.0 mg/dL Normal 8.6-10.3 [facility] Comment on above: Performed By: #### 5 363, 6399, 7600, 42010 #### [facility] of [address], [address] [place] [address] Grand Jury Deputy Sheriff: Wero Conn MD Chloride [Moles/Vol] 103 mmol/L Normal 98-110 [facility] Comment on above: Performed By: #### 5 363, 6399, 7600, 35347 #### [facility] [place] [address] Grand Jury Deputy Sheriff: Wero Conn MD CO2 [Moles/Vol] 27 mmol/L Normal 20-32 [facility] Comment on above: Performed By: #### 5 363, 6399, 7600, 41898 #### [facility] of [address], [address] [place] [address] Grand Jury Deputy Sheriff: Wero Conn MD Creatinine [Mass/Vol] 1.38 mg/dL High 0.70-1.[address] [facility] Comment on above: Performed By: #### 5 363, 6399, 7600, 19324 #### [facility] of [address], [address] [place] [address] Grand Jury Deputy Sheriff: Wero Conn MD GFR/1.73 sq M.predicted among non-blacks MDRD (S/P/Bld) [Vol rate/Area] 56 mL/min/{1.73_m2} Low > OR = 60 [facility] Comment on above: Performed By: #### 5 363, 6399, 7600, 58060 #### [facility] [place] [address] Grand Jury Deputy Sheriff: Wero Conn MD Globulin (S) [Mass/Vol] 2.2 g/dL Normal 1.9-3.7 [facility] Comment on above: Performed By: #### 5 363, 6399, 7600, 15743 #### [facility] [place] [address] Grand Jury Deputy Sheriff: Wero Conn MD Glucose [Mass/Vol] 90 mg/dL Normal 65-99 [facility] Comment on above: Result Comment: Fasting reference interval Performed By: #### 5 363, 6399, 7600, 59732 #### [facility] [place] [address] Grand Jury Deputy Sheriff: Wero Conn MD Potassium [Moles/Vol] 4.7 mmol/L Normal 3.5-5.[address] [facility] Comment on above: Performed By: #### 5 363, 6399, 7600, 25187 #### [facility] [place] [address] Grand Jury Deputy Sheriff: Wero Conn MD Protein [Mass/Vol] 6.7 g/dL Normal 6.1-8.1 [facility] Comment on above: Performed By: #### 5 363, 6399, 7600, 56531 #### [facility] [place] [address] Grand Jury Deputy Sheriff: Wero Conn MD Sodium [Moles/Vol] 141 mmol/L Normal 135-146 [facility] Comment on above: Performed By: #### 5 363, 6399, 7600, 13018 #### [facility] [place] [address] [place] [address] Grand Jury Deputy Sheriff: Wero Conn MD Urea nitrogen [Mass/Vol] 19 mg/dL Normal 7- [facility] Comment on above: Performed By: #### 5 363, 6399, 7600, 86236 #### [facility] [address], [address] [place] [address] Grand Jury Deputy Sheriff: Wero Conn MD Urea nitrogen/Creatinine [Mass ratio] 14 mg/mg Normal 6-22 [facility] Comment on above: Performed By: #### 5 363, 6399, 7600, 14041 #### [facility] [address], [address] [place] [address] [employer] Jury Deputy Sheriff: Wero Conn MD LIPID PANEL, [facility] 12-0 Cholesterol [Mass/Vol] 217 mg/dL High <200 [facility] Comment on above: Order Comment: FASTI NG:YES FASTING: YES Performed By: #### 5 363, 6399, 7600, 93814 #### [facility] [address], [address] [place] [address] Grand Jury Deputy Sheriff: Wero Conn MD Cholesterol in HDL [Mass/Vol] 34 mg/dL Low > OR = 40 [facility] Comment on above: Order Comment: FASTI NG:YES FASTING: YES Performed By: #### 5 363, 6399, 7600, 44901 #### [facility] [place] [address] Grand Jury Deputy Sheriff: Wero Conn MD Cholesterol in LDL [Mass/Vol] 151 mg/dL High [facility] Comment on above: Order Comment: FASTI NG:YES FASTING: YES Result Comment: Refe rence range: <100 Desirable range <100 mg/dL for primary prevention; <70 mg/dL for patients with CHD or diabetic patients with > or = 2 CHD risk factors. LDL-C is now calculated using the Jeni calculation, which is a validated novel method providing better accuracy than the Friedewald equation in the estimation of LDL-C. Jame SS et al. SHARONA. 2013;310(19): 3607-1247 (http://education.[facility].[employer]/faq/CLW263) Performed By: #### 5 363, 6399, 7600, 77720 #### [facility] [address], [address] [place] [address] Grand Jury Deputy Sheriff: Wero Conn MD Cholesterol.total/Cho lesterol in HDL [Mass ratio] 6.4 {ratio} High <5.0 [facility] Comment on above: Order Comment: FASTI NG:YES FASTING: YES Performed By: #### 5 363, 6399, 7600, 89501 #### [facility] [address], [address] [place] [address] Grand Jury Deputy Sheriff: Wero Conn MD NON HDL CHOLESTEROL 183 mg/dL (calc) High <130 [facility] Comment on above: Order Comment: FASTI NG:YES FASTING: YES Result Comment: For patients with diabetes plus 1 major ASCVD risk factor, treating to a non-HDL-C goal of <100 mg/dL (LDL-C of <70 mg/dL) is considered a therapeutic option. Performed By: #### 5 363, 6399, 7600, [id number] #### [facility] [address], [address] [place] [address] Grand Jury Deputy Sheriff: Wero Conn MD Triglyceride [Mass/Vol] 183 mg/dL High <150 [facility] Comment on above: Order Comment: FASTI NG:YES FASTING: YES Performed By: #### 5 363, 6399, 7600, 40731 #### [facility] [address], [address] [place] [address] Grand Jury Deputy Sheriff: Wero Conn MD PSA, TOTALon 09-02-2024 PSA, TOTAL 1.25 ng/mL Normal < OR = 4.00 [facility] Comment on above: Result Comment: The total PSA value from this assay system is standardized against the WHO standard. The test result will be approximately 20% lower when compared to the equimolar-standardized total PSA (Bruce Natasha). Comparison of serial PSA results should be interpreted with this fact in mind. This test was performed using the Siemens chemiluminescent method. Values obtained from different assay methods cannot be used interchangeably. PSA levels, regardless of value, should not be interpreted as absolute evidence of the presence or absence of disease. Performed By: #### 5 363, 6399, 7600, 58411 #### [facility] [address] [facility], [address] [place] [address] Grand Jury Deputy Sheriff: Wero Conn MD TSHon 09-02-2024 TSH Qn 1.77 m[IU]/L Normal 0.40-4.50 [facility] Comment on above: Performed By: #### 5 363, 6399, 7600, 58446 #### [facility] [address], [address] [place] [address] Grand Jury Deputy Sheriff: Wero Conn MD ELA Comprehensive Panelon ELA TABLE Comment Normal . [facility] Comment on above: Result Comment: Auto antibody Disease Association Condition Frequency --------- Antinuclear Antibody, SLE, mixed connective Direct (ELA-D) tissue diseases --------- dsDNA SLE 40 - 60% --------- Chromatin Drug induced SLE 90% SLE 48 - 97% --------- SSA (Ro) SLE 25 - 35% Sjogren's Syndrome 40 - 70% Lupus 100% --------- SSB (La) SLE 10% Sjogren's Syndrome 30% --------- Sm (anti-Marroquin) SLE 15 - 30% --------- WHEELCHAIR RENTAL CLERK Mixed Connective Tissue Disease 95% (U1 nRNP, SLE 30 - 50% anti-ribonucleoprotein) Polymyositis and/or Dermatomyositis 20% --------- Scl-70 (antiDNA Scleroderma (diffuse) 20 - 35% topoisomerase) Crest 13% --------- Maria Guadalupe-1 Polymyositis and/or Dermatomyositis 20 - 40% --------- Centromere B Scleroderma - Crest variant 80% Performed at: [address] [id number] Inspector Technician: Uriel Zelaya PhD, Phone: [phone] Performed By: #### L 7000.5300, L3100.5440, L500.4050 #### [facility] [address] [place], [address] ANTI-CENT B AB <0.2 Normal 0.0-0.9 [facility] Comment on above: Performed By: #### L 7000.5300, L3100.5440, L500.4050 #### [facility] [address] [place], [address] ANTI-DNA (DS)AB 5 IU/mL Normal 0-9 [facility] Comment on above: Result Comment: Nega tive <5 Equivocal 5 - 9 Positive >9 Performed By: #### L 7000.5300, L3100.5440, L500.4050 #### [facility] [address] [place], [address] ANTI-MARIA GUADALUPE-1 <0.2 Normal 0.0-0.9 [facility] Comment on above: Performed By: #### L 7000.5300, L3100.5440, L500.4050 #### [facility] [address] [place], [address] ANTI-SS-A < 0.2 Normal 0.0-0.9 [facility] Comment on above: Performed By: #### L 7000.5300, L3100.5440, L500.4050 #### [facility] [address] [place], [address] ANTI-SS-B < 0.2 Normal 0.0-0.9 [facility] Comment on above: Performed By: #### L 7000.5300, L3100.5440, L500.4050 #### [facility] [address] [place], [address] ANTICHROMATIN <0.2 Normal 0.0-0.9 [facility] Comment on above: Performed By: #### L 7000.5300, L3100.5440, L500.4050 #### [facility] [address] [place], [address] ANTISCLERODERM <0.2 Normal 0.0-0.9 [facility] Comment on above: Performed By: #### L 7000.5300, L3100.5440, L500.4050 #### [facility] [address] [place], [address] WHEELCHAIR RENTAL CLERK Ab <0.2 Normal 0.0-0.9 [facility] Comment on above: Performed By: #### L 7000.5300, L3100.5440, L500.4050 #### [facility] [address] [place], [address] MARROQUIN Ab <0.2 Normal 0.0-0.9 [facility] Comment on above: Performed By: #### L 7000.5300, L3100.5440, L500.4050 #### [facility] [address] [place], [address] Lyme Screen W/Reflex WBon LYME SCREEN Ab Negative Normal Negative [facility] Comment on above: Result Comment: Lyme antibodies not detected. Reflex testing is not indicated. No laboratory evidence of infection with B. burgdorferi (Lyme disease). Negative results may occur in patients recently infected (less than or equal to 14 days) with B. burgdorferi. If recent infection is suspected, repeat testing on a new sample collected in 7 to 14 days is recommended. Performed at: [address] [id number] Inspector Technician: Uriel Zelaya PhD, Phone: [phone] Performed By: #### L 7000.5300, L3100.5440, L500.4050 #### [facility] [address] [place], [address] Comprehensive Metabolic Prof ilon 07-27-2024 Albumin [Mass/Vol] 4.2 g/dL Normal 3.2-5.0 [facility] Comment on above: Performed By: #### L 7000.5300, L3100.5440, L500.4050 #### [facility] [address] [place], [address] Albumin/Globulin [Mass ratio] 1.6 {ratio} Normal 0.9-2.4 [facility] Comment on above: Performed By: #### L 7000.5300, L3100.5440, L500.4050 #### [facility] [address] [place], [address] ALK P 70 U/L Normal 45-117 [facility] Comment on above: Performed By: #### L 7000.5300, L3100.5440, L500.4050 #### [facility] [address] [place], [address] ALT [Catalytic activity/Vol] 31 U/L Normal 16-61 [facility] Comment on above: Performed By: #### L 7000.5300, L3100.5440, L500.4050 #### [facility] [address] [place], [address] AST [Catalytic activity/Vol] 21 U/L Normal 15-37 [facility] Comment on above: Performed By: #### L 7000.5300, L3100.5440, L500.4050 #### [facility] [address] [place], [address] Bilirubin [Mass/Vol] 1.80 mg/dL High 0.20-1.00 [facility] Comment on above: Result Comment: For patients on eltrombopag therapy, use of Dimension [place] TBIL is not recommended. Performed By: #### L 7000.5300, L3100.5440, L500.4050 #### [facility] [address] [place], [address] BUN/CRE 8.4 RATIO Low 10-20 [facility] Comment on above: Performed By: #### L 7000.5300, L3100.5440, L500.4050 #### [facility] [address] [place], [address] CA,Total 8.8 mg/dL Normal 8.5-10.1 [facility] Comment on above: Performed By: #### L 7000.5300, L3100.5440, L500.4050 #### [facility] [address] [place], [address] Chloride [Moles/Vol] 107 mmol/L Normal 98-107 [facility] Comment on above: Performed By: #### L 7000.5300, L3100.5440, L500.4050 #### [facility] [address] [place], [address] CO2 [Moles/Vol] 29.0 mmol/L Normal 21.0-32.0 [facility] Comment on above: Performed By: #### L 7000.5300, L3100.5440, L500.4050 #### [facility] [address] [place], [address] Creatinine [Mass/Vol] 1.79 mg/dL High 0.70-1.30 [facility] Comment on above: Result Comment: The validity of the calculated GFR GFRAA in patients over 70 years has not been determined. Clinical correlation is essential. Performed By: #### L 7000.5300, L3100.5440, L500.4050 #### [facility] [address] [place], [address] EST GFR - AA 49 mL/min Low >60 [facility] Comment on above: Result Comment: Afri can [place] GFR Calc Performed By: #### L 7000.5300, L3100.5440, L500.4050 #### [facility] [address] [place], [address] GAP 5 Normal 5-15 [facility] Comment on above: Performed By: #### L 7000.5300, L3100.5440, L500.4050 #### [facility] [address] [place], [address] GFR/1.73 sq M.predicted among non-blacks MDRD (S/P/Bld) [Vol rate/Area] 40 mL/min/{1.73_m2} Low >60 [facility] Comment on above: Result Comment: Non- GFR Calc Performed By: #### L 7000.5300, L3100.5440, L500.4050 #### [facility] [address] [place], [address] Globulin (S) [Mass/Vol] 2.7 g/dL Normal 2.2-4.2 [facility] Comment on above: Performed By: #### L 7000.5300, L3100.5440, L500.4050 #### [facility] [address] [place], [address] Glucose [Mass/Vol] 105 mg/dL Normal 74-106 [facility] Comment on above: Result Comment: Fast ing Glucose result from 100 to 125 mg/dL suggests IMPAIRED HOMEOSTASIS per A.D.A. criteria. Performed By: #### L 7000.5300, L3100.5440, L500.4050 #### [facility] [address] [place], [address] Potassium [Moles/Vol] 4.7 mmol/L Normal 3.5-5.1 [facility] Comment on above: Performed By: #### L 7000.5300, L3100.5440, L500.4050 #### [facility] [address] [place], [address] Sodium [Moles/Vol] 140 mmol/L Normal 136-145 [facility] Comment on above: Performed By: #### L 7000.5300, L3100.5440, L500.4050 #### [facility] [address] [place], [address] T PROT 6.9 g/dL Normal 6.4-8.2 [facility] Comment on above: Performed By: #### L 7000.5300, L3100.5440, L500.4050 #### [facility] [address] [place], [address] Urea nitrogen [Mass/Vol] 15 mg/dL Normal 7-18 [facility] Comment on above: Performed By: #### L 7000.5300, L3100.5440, L500.4050 #### [facility] [address] [place], [address] ED Physician Reporton 2023 ED Physician Report ARTURO SNOW :1955 Registration Date:05/14/2024 Basic Information Time Seen: KELLIE RODRIGUEZ DO / 05/14/2024 08:58 History Source: Patient _ _ [] History limitation: None [] History of Present Illness Patient is a 68-year-old male who presents to the emergency department for lightheadedness. Patient states that he had an episode of dizziness on Wednesday while he was getting his haircut. He states at that time, he had a sudden onset of room spinning dizziness. He states he had a syncopal episode at that time. When he woke up, he was diaphoretic. He went to [place] emergency department. He reports that he had an EKG and CT of his head and neck. I was able to receive records from [place]. Patient did have a CT angio of his head and neck that was negative for aneurysm or significant blockage. Patient states this morning he felt similar to how he did on Wednesday, prompting him to come to the ER for further evaluation. Patient does tell me that he has been having posterior headaches for the last several weeks. He states that he had a cyst removed from his neck. He states the headache started around that time. He does complain of some tingling in his left arm but states this has been chronic secondary to the cyst. He denies history of CAD or arrhythmia. No further concerns at this time. Review of Systems Constitutional symptoms: Negative except as documented in HPI. Skin symptoms: Negative except as documented in HPI. Eye symptoms: Negative except as documented in HPI. ENMT symptoms: Negative except as documented in HPI. Respiratory symptoms: Negative except as documented in HPI. Cardiovascular symptoms: Negative except as documented in HPI. Gastrointestinal symptoms: Negative except as documented in HPI. Genitourinary symptoms: Negative except as documented in HPI. Musculoskeletal symptoms: Negative except as documented in HPI. Psychiatric symptoms: Negative except as documented in HPI. Neurologic symptoms: Negative except as documented in HPI. Additional review of systems information: All other systems reviewed and otherwise negative, Systems negative except as stated in the H&P. Physical Exam Vitals & Measurements Initial: T: 36.5 ?C (Oral) HR: 69 (Peripheral) BP: 174/ 93 RR: 16 SpO2: 96% O2 Therapy: Room air WT: 112.5 kg (Dosing) Latest: HR: 64 (Peripheral) HR: 65 (Monitored) BP: 153/ 102 RR: 20 O2 Therapy: Room air Vital Signs: Per nurse's notes. General: Alert, No acute distress Skin: Warm, dry, no rash. Head: Normocephalic, atraumatic. Neck: Supple, trachea midline. mild tenderness to palpation to left cervical paraspinal muscles, no midline tenderness Eye: Pupils are equal, round and reactive to light, extraocular movements are intact, normal conjunctiva. Ears, nose, mouth and throat: Oral mucosa moist. Cardiovascular: Regular rate and rhythm, no murmur, peripheral pulses intact, no edema. Respiratory: Lungs are clear to auscultation, respirations are non-labored, breath sounds are equal. Back: Normal alignment, normal ROM Musculoskeletal: No deformity, no long bone tenderness to palpation Gastrointestinal: Soft, nontender, non distended, normal bowel sounds. Neurological: Alert and oriented to person, place, time, and situation, CNII-XII intact, Motor strength equal and intact in all extremities, Sensation grossly intact and equal in all extremities. Medical Decision Making ED Course: EKG is negative for STEMI. Patient is in a normal sinus rhythm. No arrhythmia noted while in the ER. Chest x-ray is negative for pneumonia, cardiomegaly, widened mediastinum. Lab work shows mildly elevated creatinine indicating possible dehydration. Unknown baseline at this time. His bilirubin is also noted to be mildly elevated. No abdominal pain or tenderness on exam. No indication at this time for emergent imaging of his abdomen. Patient has negative troponin x 2. No evidence of ACS. White blood cell count is within normal limits. H&H is stable. Patient had previous CT brain, CT angio head and neck. No indication to repeat these in ED. I discussed with Dr. Greer. Patient will be placed in observation on SPIL GAMES at this time for further hydration. He would like Dr. Ramos on consult from neurology. This was ordered in the ER. No further orders at this time Shared decision making: Patient's disposition was determined through shared decision making after discussion of ED work up, treatment course, and risk/benefits of any possible treatment with [patient.] All are agreeable with treatment plan at this time. Reexamination/Reevaluat ion improved Systolic Blood Pressure: 154 mmHg High Diastolic Blood Pressure: 94 mmHg High Temperature Oral: 36.5 degC Heart Rate Monitored: 87 bpm Respiratory Rate: 16 br/min Mean Arterial Pressure, Cuff: 114 mmHg SpO2: 94 % Oxygen Therapy: Room air Systolic Blood Pressure Supine: 150 mmHg (more content not included)... Normal [facility] Consult Reporton 05-18-2024 Consult Report Patient: ARTURO SNOW Age: 68 years Sex: Male : 1955 Associated Diagnoses: None Author: DAVE RAMOS MD History of Present Illness 8-year-old male. I reviewed the records from [facility].?Emergency room Chief complaint syncope. Background history Shortness of breath on exertion no smoking. Hyperlipidemia hypertension benign enlargement of the prostate hypothyroidism gastroesophageal reflux disorder He was getting a haircut and he passed out in the chair. No report of trauma. He stopped breathing. No CPR was performed. He was very sweaty afterward. Noted to be lightheaded and nauseated prior to the event. Headache in the posterior part of his head for the past 4 weeks. Lightheaded at times when looking upward. No history of seizures eye movements are intact. Alert and oriented x 3. Negative test of skew. Strength was good. Sensations intact. Coordination was good. Reflexes intact. I interviewed the patient. He told me as he was having his haircut vision began to Dem. He felt that there was some spinning sensation in the room. The next thing he knew he had passed out. He was out for about a minute or so but he was profusely drenched in sweat when this happened. This time around he felt a little lightheaded and a little flushed and that is what brought him to the hospital. Did not lose consciousness this time. His thyroid medicine was recently increased according to him. Family in the room. His vital signs are stable 97.5 ?F pulse was 79 blood pressure 143/95 oxygen saturation 96% Orthostatic blood pressure readings lying down 147/102 standing 158/92 Apparently had an echocardiogram February 2023 showing ejection fraction 60%. No regional wall motion abnormalities. I reviewed the medications. He was on tamsulosin 0.4 mg in addition levothyroxine and prednisone CT head showed no evidence of bleed. CT angiogram of the head was unremarkable?Per report 05/12/2024?moderate 50 to 60% stenosis M1 segment left middle cerebral artery I then reviewed ER records 05/14/2020 for [facility] Came in for lightheadedness. Had room spinning dizziness 3 days ago. Lost consciousness. This time he felt symptoms similar to what he felt 3 days ago. Posterior headache for the past several weeks. He had a cyst removed from his neck. Headache is around this region of surgical intervention. Tingling left upper limb which is chronic. In the ER patient is awake alert oriented. Neurologic examination unremarkable. Pressure was 153/102 in the ER. No fever. No smoking alcohol. No substance abuse. Family history unremarkable Echocardiogram showed preserved left ventricular function and no significant valvular disease. MRI brain?05/14/2024?I independently reviewed the images?nonspecific periventricular white matter changes. Mild asymmetric ectasia left lateral ventricle related to the right side with numerous scattered ectatic perivascular spaces most notable throughout both basal ganglia. Paranasal sinuses right mastoid air cells complex disease. MRA brain?05/14/2024?no definite large vessel occlusion moderate fusiform hypoplasia right V4 segment minimal to mild irregularity scattered about the distal petrous cavernous and supraclinoid segments of both internal carotid arteries slightly worse than the left. Chest x-ray unremarkable. CBC was okay. BMP did not show any significant abnormality I reviewed labs Last Month Chemistry BUN 16 mg/dL 05/15/24 Na 142 mmol/L 05/15/24 K 4.5 mmol/L 05/15/24 Chloride 106 mmol/L 05/15/24 CO2, venous 30.0 mmol/L 05/15/24 Creatinine 1.4 mg/dL 05/15/24 Total Protein 6.0 g/dL 05/15/24 Calcium 8.9 mg/dL 05/15/24 Cholesterol 192 mg/dL 05/15/24 Triglycerides 133 mg/dL 05/15/24 HDL Cholesterol 29 mg/dL 05/15/24 Calculated LDL Cholesterol 136 mg/dL 05/15/24 Total Chol/HDL Chol Ratio 6.6 05/15/24 Bilirubin, Total 1.60 mg/dL 05/15/24 Alk Phos 65 unit/L 05/15/24 GOT 19 unit/L 05/15/24 GPT 24 unit/L 05/15/24 BUN/Creat Ratio 11.4 05/15/24 Calculated Osmolality 284 mOsm/kg 05/15/24 Globulin 2.2 g/dL 05/15/24 A/G Ratio 1.7 05/15/24 Magnesium 1.9 mg/dL 05/14/24 ALB 3.8 g/dL 05/15/24 Glomerular Filtration Rate 50 mL/min/1.73m? 05/15/24 Glucose 92 mg/dL 05/15/24 GFR AA >60 05/15/24 Estimated Creatinine Clearance 61.20 mL/min 05/15/24 Troponin HS 0 Hr <3 pg/mL 05/14/24 Troponin HS 2 Hr 3 pg/mL 05/14/24 Troponin HS 6 Hr 3 pg/mL 05/14/24 Delta Troponin 2 Hr 0 pg/mL 05/14/24 Delta Troponin 6 Hr 0 pg/mL 05/14/24 Coagulation Protime Patient 12.7 seconds 05/14/24 INR 1.1 05/14/24 APTT Patient 31.5 seconds 05/14/24 Hematology WBC 8.0 x103/uL 05/15/24 RBC 5.29 x106/uL 05/15/24 HGB 16.6 g/dL 05/15/24 HCT 47.9 % 05/15/24 MCV 90.6 fL 05/15/24 MCH 31.5 pg 05/15/24 MCHC 34.8 g/dL 05/15/24 RDW 14.1 % 05/15/24 Platelet 157 x103/uL 05/15/24 MPV 8.8 fL 05/15/24 Lymph % 15.2 % 05/15/24 [place] % 8.8 % (more content not included)... Normal [facility] ACETAMINOPHEN 325 MG TABon 0 05-15-2024 ACETAMINOPHEN 325 MG TAB PRN Response Entered On: 05/15/2024 2:53 EDT Performed On: 05/14/2024 23:21 EDT by Samanta Mendoza RN Intervention Information: acetaminophen Performed by Samanta Mendoza RN on 05/14/2024 22:21:00 EDT acetaminophen,650mg ORAL,Headache PRN Medication Response PRN Medication used for : Pain PRN Medication Effectiveness : Yes PRN Response Pain Scales : Numeric (8yrs & older) Numeric Pain Scale Age : Numeric (8yrs & older) Actual time of reassessment : Yes Samanta Mendoza RN - 05/15/2024 2:53 EDT Numeric Pain Scale Numeric Pain Scale : 4 = Moderate Pain Numeric Pain Score : 4 Samanta Mendoza RN - 05/15/2024 2:[address] [facility] Comment on above: Order Comment: Order entered secondary to inpatient admission. AUTO DIFFon 05-15-2024 Baso Count 0.07 x1000 Normal 0.00-0.20 [facility] Comment on above: Performed By: #### 1 54950, [id number], 000215, [id number] #### [facility] [address] [place], [place] [phone] Grand Jury Deputy Sheriff: Jame Muhammad MD Basos % 0.9 % Normal [facility] Comment on above: Performed By: #### 1 64769, [id number], 707576, [id number] #### [facility] [address] [place], [place] [phone] Grand Jury Deputy Sheriff: Jame Muhammad MD Eos Count 0.27 x1000 Normal 0.00-0.50 [facility] Comment on above: Performed By: #### 1 58118, 5329562, 407088, 6337628 #### [facility] [address] [place] [address] Grand Jury Deputy Sheriff: Jame Muhammad MD Eosinophils/100 WBC (Bld) 3.4 % Normal [facility] Comment on above: Performed By: #### 1 83637, 3152568, 188626, 9061722 #### [facility] [address] [place] [address] Grand Jury Deputy Sheriff: Jame Muhammad MD Lymph Count 1.21 x1000 Normal 1.20-4.80 [facility] Comment on above: Performed By: #### 1 21048, 0841154, 962408, 9661931 #### [facility] [address] [place] [address] Grand Jury Deputy Sheriff: Jame Muhammad MD Lymphocytes/100 WBC (Bld) 15.2 % Normal [facility] Comment on above: Performed By: #### 1 45303, 6908269, 385316, 2297449 #### [facility] [address] [place] [address] Grand Jury Deputy Sheriff: Jame Muhammad MD [place] Count 0.70 x1000 Normal 0.10-1.00 [facility] Comment on above: Performed By: #### 1 72916, 9920139, 702563, 3078651 #### [facility] [address] [place] [address] Grand Jury Deputy Sheriff: Jame Muhammad MD Monocytes/100 WBC (Bld) 8.8 % Normal [facility] Comment on above: Performed By: #### 1 45992, 1191384, 298872, 3355669 #### [facility] [address] [place] [address] Grand Jury Deputy Sheriff: Jame Muhammad MD Neutrophil Count (ANC) 5.72 x1000 Normal 1.40-8.80 [facility] Comment on above: Performed By: #### 1 82801, 2547012, 494886, 8360357 #### [facility] [address] [place] [address] Grand Jury Deputy Sheriff: Jame Muhammad MD Neutrophils/100 WBC (Bld) 71.8 % Normal [facility] Comment on above: Performed By: #### 1 02757, 7107943, 006604, 6956649 #### [facility] [address] [place] [address] Grand Jury Deputy Sheriff: Jame Muhammad MD COMPMETAon 05-15-2024 Albumin [Mass/Vol] 3.8 g/dL Normal 3.4-5.0 [facility] Comment on above: Performed By: #### 1 68892, 3073012, 179981, 1705267 #### [facility] [address] [place] [address] Grand Jury Deputy Sheriff: Jame Muhammad MD Albumin/Globulin [Mass ratio] 1.7 {ratio} Normal [facility] Comment on above: Performed By: #### 1 77793, 3558176, 959474, 0931731 #### [facility] [address] [place] [address] Grand Jury Deputy Sheriff: Jame Muhammad MD Alk Phos 65 unit/L Normal 45-117 [facility] Comment on above: Performed By: #### 1 30604, 4347837, 567660, 6822922 #### [facility] [address] [place] [address] Grand Jury Deputy Sheriff: Jame Muhammad MD Bilirubin [Mass/Vol] 1.60 mg/dL High 0.30-1.20 [facility] Comment on above: Result Comment: Use of this assay is not recommended for patients undergoing treatment with eltrombopag due to the potential for falsely elevated results. Performed By: #### 1 61794, 1594963, 136699, 8744884 #### [facility] [address] [place] [address] Grand Jury Deputy Sheriff: Jame Muhammad MD Calcium [Mass/Vol] 8.9 mg/dL Normal 8.7-10.4 [facility] Comment on above: Performed By: #### 1 07544, 0768015, 166820, 8051958 #### [facility] [address] [place] [address] Grand Jury Deputy Sheriff: Jame Muhammad MD Chloride [Moles/Vol] 106 mmol/L Normal 98-107 [facility] Comment on above: Performed By: #### 1 51503, 1445571, 118608, 5577801 #### [facility] [address] [place] [address] Grand Jury Deputy Sheriff: Jame Muhammad MD CO2 [Moles/Vol] 30.0 mmol/L Normal 20.0-31.0 [facility] Comment on above: Performed By: #### 1 23310, 1667918, 103718, 9695249 #### [facility] [address] [place] [address] Grand Jury Deputy Sheriff: Jame Muhammad MD Creatinine [Mass/Vol] 1.4 mg/dL High 0.6-1.1 [facility] Comment on above: Performed By: #### 1 94399, 2431506, 828859, 9893219 #### [facility] [address] [place] [address] Grand Jury Deputy Sheriff: Jame Muhammad MD GFR AA >[address] [facility] Comment on above: Result Comment: Afri can [place] GFR Calc Medical judgement is necessary to interpret GFR. The calculated GFR may not accurately reflect renal status in patients >70 years, women, acutely ill hospitalized patients and patients with acute renal failure or known renal disease. The MDRD GFR formula is valid only for adults greater than 18 years of age. Note: Creatinine clearance (not GFR) should be used for drug dosing. Performed By: #### 1 61692, [id number], 556023, 2370927 #### [facility] [address] [place] [address] Grand Jury Deputy Sheriff: Jame Muhammad MD Globulin (S) [Mass/Vol] 2.2 g/dL Normal [facility] Comment on above: Performed By: #### 1 23656, 7806073, 180669, 2906124 #### [facility] [address] [place] [address] Grand Jury Deputy Sheriff: Jame Muhammad MD Glomerular Filtration Rate 50 mL/min/1.73m? Normal [facility] Comment on above: Result Comment: Non- GFR Calc Medical judgement is necessary to interpret GFR. The calculated GFR may not accurately reflect renal status in patients >70 years, women, acutely ill hospitalized patients and patients with acute renal failure or known renal disease. The MDRD GFR formula is valid only for adults greater than 18 years of age. Note: Creatinine clearance (not GFR) should be used for drug dosing. Performed By: #### 1 59050, 4771552, 558573, 7614320 #### [facility] [address] [place] [address] Grand Jury Deputy Sheriff: Jame Muhammad MD Glucose [Mass/Vol] 92 mg/dL Normal 74-106 [facility] Comment on above: Performed By: #### 1 94195, 1661496, 660117, 4169774 #### [facility] [address] [place] [address] Grand Jury Deputy Sheriff: Jame Muhammad MD GOT 19 unit/L Normal 15-37 [facility] Comment on above: Performed By: #### 1 78698, 1718071, 589712, 4031483 #### [facility] [address] [place] [address] Grand Jury Deputy Sheriff: Jame Muhammad MD GPT 24 unit/L Normal 10-49 [facility] Comment on above: Performed By: #### 1 59217, 1764444, 944647, 3955361 #### [facility] [address] [place] [address] Grand Jury Deputy Sheriff: Jame Muhammad MD Osmolality [Osmolality] 284 mosm/kg Normal 275-295 [facility] Comment on above: Performed By: #### 1 91657, 6662549, 261582, 0953185 #### [facility] [id number] [place] [address] Grand Jury Deputy Sheriff: Jame Muhammad MD Potassium [Moles/Vol] 4.5 mmol/L Normal 3.5-5.1 [facility] Comment on above: Performed By: #### 1 06609, 0367069, 307136, 3033832 #### [facility] [address] [place] [address] Grand Jury Deputy Sheriff: Jame Muhammad MD Protein [Mass/Vol] 6.0 g/dL Normal 5.7-8.2 [facility] Comment on above: Result Comment: Tota l Protein results may be increased in patients receiving dextran as a blood volume sweat box attendant Performed By: #### 1 42948, 5340460, 452005, 2455969 #### [facility] [address] [place] [address] Grand Jury Deputy Sheriff: Jame Muhammad MD Sodium [Moles/Vol] 142 mmol/L Normal 135-145 [facility] Comment on above: Performed By: #### 1 01392, 5980683, 029713, 7922511 #### [facility] [address] [place] [address] Grand Jury Deputy Sheriff: Jame Muhammad MD Urea nitrogen [Mass/Vol] 16 mg/dL Normal 9-23 [facility] Comment on above: Result Comment: - Ve nipuncture should occur prior to N-Acetyl Cysteine (NAC) or Metamizole (Sulpyrine) administration due to the potential for falsely depressed results. - Blood samples from some patients with monoclonal gammopathies may produce falsely elevated results Performed By: #### 1 36589, 7182717, 105636, 3542815 #### [facility] [address] [place] [address] Grand Jury Deputy Sheriff: Jame Muhammad MD Urea nitrogen/Creatinine [Mass ratio] 11.4 mg/mg Normal [facility] Comment on above: Performed By: #### 1 99683, 0904501, 491697, 3671004 #### [facility] [address] [place] [id number] Grand Jury Deputy Sheriff: Jame Muhammad MD Consult Reporton 05-15-2024 Consult Report Patient: ARTURO SNOW Age: 68 years Sex: Male : 1955 Associated Diagnoses: None Author: CHERYL WANG, FELICIANO [facility] Consult IMPRESSION: 1. Syncope PLAN: Probably vasovagal episode. Echocardiogram pending, doubt significant valvular disease No arrhythmias Orthostatics negative ------ Chief Complaint: Syncope History of Present Illness: 68yo male admitted with syncope. Pt states he was at [employer] getting hair cut and felt diaphoretic and passed out in the chair, EMS came took him to [facility] then discharged home. Then at home he had same symptoms and came here. He had a cyst removed from his posterior neck a few weeks ago and has been having posterior headaches and neck pains since then. He denies chest pain. No history of CAD, MA, CHF. Past Medical History: Hypothyroidism Surgical History: as above Social history: no tobacco, alcohol or drug use Family History: Noncontributory Allergies: NKDA Home Medications: Home Medications (2) Active Flomax 0.4 mg oral capsule 0.4 mg = 1 caps, ORAL, DAILY Synthroid 150 mcg (0.15 mg) oral tablet 150 mcg = 1 tabs, ORAL, DAILY Inpatient Medications Medications (16) Active Scheduled: (4) LEVOTHYROXINE 150MCG TABLET 150 mcg 1 tabs, ORAL, DAILY BEFORE BREAKFAST LOSARTAN 25MG TAB 25 mg 1 tabs, ORAL, BID SODIUM CHLORIDE SYR/VIAL 10ML 3 mL, IV Push, [id number] TAMSULOSIN 0.4MG CAP 0.4 mg 1 caps, ORAL, DAILY Continuous: (1) SODIUM CHLORIDE 0.9% 1,000 mL 1,000 mL, IV, 100 mL/hr PRN: (11) ACETAMINOPHEN 325 MG TAB 650 mg 2 tabs, ORAL, [id number] ACETAMINOPHEN 325 MG TAB 650 mg 2 tabs, ORAL, [id number] ACETAMINOPHEN 325 MG TAB 650 mg 2 tabs, ORAL, [id number] HydrALAZINE 20MG/1ML INJ 10 mg 0.5 mL, IV Push, [id number] MECLIZINE 25MG TABLET 25 mg 1 tabs, ORAL, TID MELATONIN 5MG TAB 5 mg 1 tabs, ORAL, [id number] NALOXONE 0.4MG/1ML INJ 0.4 mg 1 mL, IV Push, PRN ONDANSETRON=ZOFRAN INJ 4 mg 2 mL, IV Push, [id number] PERFLUTREN 2 ML INJ 2 ML, IV Push, PRN SODIUM CHLORIDE SYR/VIAL 10ML 3 mL, IV Push, PRN SODIUM CHLORIDE SYR/VIAL 10ML 8 mL, IV Push, PRN Review of Systems: General: no fevers or chills, no weight gain or weight loss, no fatigue Heent: no change in vision or hearing, no headaches Cardiac: see hpi Lungs: denies cough or wheezing or hemoptysis GI: denies nausea, vomiting, diarrhea : denies dysuria Neuro: no hx of CVA/TIA Psych: no hx of anxiety or depression Skin: denies rash or puritis Heme: denies any abnormal bleeding or bruising Endo: denies heat or cold intolerance Msk: denies any joint pain or muscle aches Physical Exam: Vital Signs (last 24 hrs) Last Charted Temp Oral 36.6 degC (MAY 14 15:41) Heart Rate Monitored 75 bpm (MAY 15 10:00) Resp Rate 18 br/min (MAY 15 07:37) SBP H 158 mmHg (MAY 15 07:37) DBP 88 mmHg (MAY 15 07:37) BMI 31 (MAY 14 15:45) General: cooperative in no distress Heent: normocephalic atraumatic. EOMI. Ears, nose, and mouth unremarkable Cardiac: regular rate and rhythm, S1 S2 no murmurs, no JVD Lungs: clear to auscultation bilaterally Abdomen: soft non tender + bowel sounds Extremities: no edema Psych: awake alert oriented x 3, appropriate mood and affect Neuro: no gross motor defects noted Skin: warm, dry Labs: Labs (Last four charted values) WBC 8.0 (MAY 15) 7.0 (MAY 14) Hgb 16.6 (MAY 15) 17.2 (MAY 14) Hct 47.9 (MAY 15) 50.4 (MAY 14) Plt 157 (MAY 15) 168 (MAY 14) Na 142 (MAY 15) 143 (MAY 14) K 4.5 (MAY 15) 4.2 (MAY 14) CO2 30.0 (MAY 15) 30.0 (MAY 14) Cl 106 (MAY 15) 106 (MAY 14) Cr H 1.4 (MAY 15) H 1.5 (MAY 14) BUN 16 (MAY 15) 19 (MAY 14) Glucose Random 92 (MAY 15) H 132 (MAY 14) Mg 1.9 (MAY 14) Ca 8.9 (MAY 15) 9.1 (MAY 14) INR 1.1 (MAY 14) I personally performed a face to face evaluation of the patient, and agree with the assessment and plan created by Feliciano Luna PA-C. My findings are below. 68-year-old male with above-mentioned history who was admitted with what clinically sounds to be vasovagal syncope. He does mention having a pain in the back of his head and neck. Which she has had for several weeks after the removal of a cyst. It seems he did contact the general surgeon in [place] and they do not feel the symptoms are related to the surgery. Heart sounds are regular lungs are clear carotid arteries are unremarkable. Echocardiogram reviewed shows preserved LV function no significant valvular heart disease. ECG with no acute ischemic changes cardiac biomarkers are negative. MRI without contrast is negative. There is some mention of possible microvascular ischemic disease and they recommended CT angio of the head and neck if continued symptoms. Would defer this to the primary servic (more content not included)... Normal [facility] Discharge Educationon 2023 Discharge Education Patient Education Material Normal [facility] HEMOon 05-15-2024 DIFF? No Normal [facility] Comment on above: Performed By: #### 1 93611, 5087223, 692787, 6262445 #### [facility] [address] [place] [address] Grand Jury Deputy Sheriff: Jame Muhammad MD Erythrocyte distribution width (RBC) [Ratio] 14.1 % Normal 11.5-14.5 [facility] Comment on above: Performed By: #### 1 39398, 7491491, 270452, 8953725 #### [facility] [address] [place] [address] Grand Jury Deputy Sheriff: Jame Muhammad MD Hematocrit (Bld) [Volume fraction] 47.9 % Normal 41.0-52.0 [facility] Comment on above: Performed By: #### 1 61802, 2509513, 219284, 2132358 #### [facility] [address] [place] [address]67 Grand Jury Deputy Sheriff: Jame Muhammad MD Hemoglobin (Bld) [Mass/Vol] 16.6 g/dL Normal 13.5-17.5 [facility] Comment on above: Performed By: #### 1 10681, 6115684, 587091, 0694785 #### [facility] [address] [place] [address] Grand Jury Deputy Sheriff: Jame Muhammad MD Instr WBC 8.[address] [facility] Comment on above: Performed By: #### 1 86787, 4063685, 095652, 0953192 #### [facility] [address] [place] [address] Grand Jury Deputy Sheriff: Jame Muhammad MD MCH (RBC) [Entitic mass] 31.5 pg Normal 27.0-34.0 [facility] Comment on above: Performed By: #### 1 48034, 8051642, 703165, 8014245 #### [facility] [address] [place] [address] Grand Jury Deputy Sheriff: Jame Muhammad MD MCHC (RBC) [Mass/Vol] 34.8 g/dL Normal 32.0-37.0 [facility] Comment on above: Performed By: #### 1 40615, 4187766, 685966, 9454431 #### [facility] [address] [place] [address] Grand Jury Deputy Sheriff: Jame Muhammad MD MCV (RBC) [Entitic vol] 90.6 fL Normal 80.0-100.0 [facility] Comment on above: Performed By: #### 1 16992, 4028283, 378932, 8778071 #### [facility] [address] [place] [address] Grand Jury Deputy Sheriff: Jame Muhammad MD Nucleated RBC 0 /100WBC Normal [facility] Comment on above: Performed By: #### 1 48228, 0326114, 580478, 4046062 #### [facility] [address] [place] [address] Grand Jury Deputy Sheriff: Jame Muhammad MD Platelet 157 x10 Normal 150-450 [facility] Comment on above: Performed By: #### 1 42221, 1581513, 306628, 3677064 #### [facility] [address] [place] [address] Grand Jury Deputy Sheriff: Jame Muhammad MD Platelet mean volume (Bld) [Entitic vol] 8.8 fL Normal 7.4-10.4 [facility] Comment on above: Performed By: #### 1 98193, 0327567, 724141, 3296870 #### [facility] [address] [place] [address] Grand Jury Deputy Sheriff: Jame Muhammad MD RBC 5.29 x10 Normal 4.70-6.10 [facility] Comment on above: Result Comment: Note : RBC morphology is normal unless otherwise stated. Evaluation performed only if differential is requested. Performed By: #### 1 73890, 6446959, 593959, 8705949 #### [facility] [address] [place] [address] Grand Jury Deputy Sheriff: Jame Muhammad MD WBC 8.0 x10 Normal 4.5-11.0 [facility] Comment on above: Performed By: #### 1 38161, 9115829, 243650, 9928805 #### [facility] [address] [place] [address] Grand Jury Deputy Sheriff: Jame Muhammad MD Inpatient Patient Summaryon 05-15-[address] [facility] Discharge Instructions [address] [place] [address] (Patient Copy) Name: ARTURO SNOW : 1955 Diagnosis: Allergies: No Known Allergies Registration Date: 05/14/24 Current Date Time: 05/15/2024 16:05:03 Address: [address] [place] [address] [place] [address] Primary Care Provider: Name: OSKAR GALVAN Thank you for choosing [facility] for your care. You are very important to us. Our goal is to demonstrate our high quality medical care and provide you with a very good patient experience. You may receive a survey about our service. Please take the time to complete the survey and return it so we can continue to enhance our service. Thank you again for allowing [facility] to care for your medical needs. If you have any questions about your care or follow up information please contact your doctor. Follow-up Instructions The following Appointments have been made for you: Please Note: the first letters listed in the order is the location code, followed by the appointment date, and scheduled provider Future Appointments No Future Appointments Scheduled Provider Follow Ups: With: Address: When: DR CARMEN MACEDO ON [facility], [address] [place] [address] Business (1) Comments: Follow up in 3-5 days. Call to schedule follow up appointment. If you have had an intravenous catheter (IV) during your stay, keep the dressing dry and do not remove it from the site for at least 24 hours or as instructed by your provider to prevent problems. Medication Information Only Take The Medicines On This List. Keep This List and Bring It To Your Next Appointment. Medicines To Take At Home: Medicine Name (Generic Name) Amount to Take How to Take it How Often to Take it Additional Instructions Next Dose Due Synthroid 150 mcg (0.15 mg) oral tablet (levothyroxine) 150 mcg By Mouth DAILY losartan 25 mg oral tablet * (losartan) 25 mg By Mouth TWICE A DAY Crestor 20 mg oral tablet * (rosuvastatin) 20 mg By Mouth DAILY Flomax 0.4 mg oral capsule (tamsulosin) 0.4 mg By Mouth DAILY Understanding your home medicine is important to keeping you healthy. If you are taking medications that are not on the preceding list, please call your doctor to see if you are to continue taking that medication. It is important that you do not skip or make up doses. If you are ordered an antibiotic, finish taking all the medicine unless your doctor tells you otherwise. Call your doctor if you have any questions or problems. Take the medicine list with you to all follow up appointments. Patient education materials, if any, will display below Prescription leaflets, if any, will display below losartan North (loe SAR tan) What is the most important information I should know about losartan? Do not use if you are . Stop using this medicine and tell your doctor right away if you become . Tell your doctor about all your other medicines. Some drugs should not be used with losartan. What is losartan? Losartan is used alone or in combination with other medicines to treat high blood pressure in adults and children at least 6 years old. Lowering blood pressure may lower your risk of a stroke in certain people with heart disease. Losartan is also used to slow long-term kidney damage in people with type 2 diabetes who have high blood pressure. Losartan may also be used for purposes not listed in this medication guide. What should I discuss with my healthcare provider before taking losartan? You should not use losartan if you are allergic to it. If you have diabetes, do not take losartan with any medication that contains aliskiren (a blood pressure medicine). Tell your doctor if you have ever had: ?? heart disease or congestive heart failure; ? an electrolyte imbalance (such as high levels of potassium in your blood); ? if you are on a low-salt diet; ? liver disease; or ? kidney disease. You may also need to avoid taking losartan with aliskiren if you have kidney disease. Stop using this medicine and tell your doctor right away if you become . Losartan can cause injury or to the unborn baby if you use the medicine during your second or third trimester. Tell your doctor if you are . How should I take losartan? Follow all directions on your prescription label and read all medication guides or instruction sheets. Your doctor may occasionally change your dose. Use the medicine exactly as directed. Losartan is usually taken once per day. You may take losartan with or without food. Call your doctor if you are sick with vomiting or diarrhea, or if you are sweating more than usual. You can easily become dehydrated while taking losartan. This can lead to very low blood pre (more content not included)... Normal [facility] LIPID PNLon 05-15-2024 Calculated LDL Cholesterol 136 mg/dL High 60-130 [facility] Comment on above: Result Comment: <100 mg/dl Optimal 100-129 mg/dl Near Optimal 130-159 mg/dl Borderline High 160-189 mg/dl High >=190 mg/dl Very High Performed By: #### 1 36822, 5291994, 230230, [id number] ####[facility] [id number] [place] [id number] Medical Director: Jame Muhammad MD Cholesterol [Mass/Vol] 192 mg/dL Normal 100-200 [facility] Comment on above: Result Comment: Jerilyn puncture should occur prior to N-Acetyl Cysteine (NAC) or Metamizole (Sulpyrine) administration due to the potential for falsely depressed results. Performed By: #### 1 57905, 3254710, 354780, 1262084 ####[facility] [id number] [place] [address] Medical Director: Jame Muhammad MD Cholesterol in HDL [Mass/Vol] 29 mg/dL Low 40-60 [facility] Comment on above: Result Comment: Dire ct HDL Venipuncture should occur prior to metamizole (sulpyrine) administration due to the potential for falsely depressed results Performed By: #### 1 85459, [id number], 192139, [id number] ####[facility] [address] [place] [address] [facility] Director: Jame Muhammad MD Total Chol/HDL Chol Ratio 6.[address] [facility] Comment on above: Performed By: #### 1 30795, [id number], 207572, [id number] ####[facility] [address] [place] [id number] [facility] Director: Jame Muhammad MD Triglyceride [Mass/Vol] 133 mg/dL Normal 30-150 [facility] Comment on above: Result Comment: - Ve nipuncture should occur prior to N-Acetyl Cysteine (NAC) or Metamizole (Sulpyrine) administration due to the potential for falsely depressed results - Use of this assay is not recommended for patients being treated with etamsylate because it causes falsely decreased results Performed By: #### 1 96864, [id number], 519965, [id number] ####[facility] [address] [place] [id number] [facility]: [facility] MD OT Acute Time Spent With Pat ient - Texton 05-15-2024 OT Acute Time Spent With Patient - Text OT Acute Time Spent With Patient Entered On: 05/15/2024 11:22 EDT Performed On: 05/15/2024 11:05 EDT by GALDINO Gómez Ashley Time Spent with Patient OT Evaluation Units, Low Complexity : 0 units OT Individual Eval Time, Low Complexity : 0 minutes OT Time In : 11:05 EDT OT Time Out : 11:14 EDT OT Self Care, Home Management Units : 0 units OT Self Care, Home Management Time : 0 minutes OT Total Timed Code Treatment Units : 0 units OT Total Timed Code Treatment Minutes : 0 minutes 8 Min Rule Unit Check OT IP : 0 units OT Total Untimed Code Treatment Minutes : 0 minutes OT Total Treatment Time Rehab : 0 minutes 8 Min Rule Unit Difference OT IP : 0 PMR Chart Review - OT : Yes GALDINO Gómez Ashley - 05/15/2024 11:18 EDT OT Units Lost Grid OT Units Lost #1 Amount (units) : 1 Reason : Other: OT Screen Comment (Comment: Pt self reports I w/ADLs,IADLs;blurry vision,occipital headache,and LUE tingling has resolved,instigated by cervical extension which pt self-aware;no functional impairments requiring skilled OT. [Yuan OTR/L, Dinah AHMADI - 05/15/2024 11:18 EDT] ) Yuan OTR/L, Dinah AHMADI - 05/15/2024 11:[address] [facility] Roping Tender Detailson 2023 Roping Tender Details Roping Tender Details Entered On: 05/15/2024 2:53 EDT Performed On: 05/15/2024 2:53 EDT by Samanta Mendoza RN Roping Tender Details Transport Mode Order Detail EV : Wheelchair Isolation Precautions RTF : Communication CONSTANT Order, 05/14/2024 13:40:00 EDT, Constant Order, Current ACLS Provider may, Initiate [place] [employer] Advanced Cardiac Life support Algorithm per patient code status, Ordered Communication CONSTANT Order, 05/14/2024 13:40:00 EDT, Constant Order, STAT EKG for Chest Pain, STAT ABGs for Acute Respiratory Distress, STAT Potassium/Magnesium for any significant change in condition/rhythm, Ordered Notify Provider, 05/14/2024 13:40:00 EDT, Constant Order, Contact OBS Unit PA/BUSINESS DEVELOPMENT EXECUTIVE for any change in clinical status, positive test results, abnormal rhythm, or EKG changes, Ordered Oxygen Therapy, 05/14/2024 13:40:00 EDT, Nasal Cannula, 2-3L, PRN, Ordered Consult Physician, 05/14/2024 12:37:00 EDT, KRISTAN PORRAS, DAVE, dizziness, Completed Level of Care Order, 05/14/2024 12:37:00 EDT, Medical Outpatient with Observation Services, PRIYANKA GREER MD, Ordered Transfer Care of Patient to Attending, 05/14/2024 12:37:00 EDT, Upon discharge from the ED, all continued medications and orders become the responsibility of the admitting/attending physician., Ordered Misc Nutrition Task to Nursing, 05/14/2024 09:09:00 EDT, Constant Order, NPO, Ordered Isolation Precaution Order Detail EV : NONE IV Order Detail - EV : Yes Oxygen Order Detail EV : No Order Detail EV : No Pacemaker Order Detail : 0 Roping Tender Details Review Status : Reviewed, no changes Nurse Collects Blood Specimens : Samanta Fischer RN - 05/15/2024 2:[address] [facility] Comment on above: Order Comment: Order entered secondary to inpatient admission. Pharmacy Clinical Interventi ons-Texton 05-15-2024 Pharmacy Clinical Interventions-Text Pharmacy Clinical Interventions Entered On: 05/15/2024 14:48 EDT Performed On: 05/15/2024 14:48 EDT by Maris Jese segal Interventions Intervention Type Pharmacy : Discharge Med Rec Intervention Pharmacy Order Initiated By : Pharmacist Clinical Importance Pharmacy : Potentially major Prescriber Response Pharmacy : Corrected prior to contact Patient Clinical Outcome Pharmacy : Avoided potential risk Pharmacist Intervention Time : 30 Jese Pollock RPh - 05/15/2024 14:48 EDT Pharmacy Additional Information : losartan new on dc. crestor added to discharge per dr [facility]rist[facility]:[address] [facility] Rehabilitation Inpt - Assign ment - Text 05-15-2024 Rehabilitation Inpt - Assignment - Text Rehabilitation Inpatient - Assignment Entered On: 05/15/2024 15:34 EDT Performed On: 05/15/2024 15:34 EDT by Nayana Chavez PT Rehabilitation Inpatient - Assignment Physical Therapy : PMRPMelania barclay PT, Jennifer M - 05/15/2024 15:[address] [facility] Rehabilitation Inpt - Assignment - Text Rehabilitation Inpatient - Assignment Entered On: 05/15/2024 7:26 EDT Performed On: 05/15/2024 7:26 EDT by Randy FAITHR/Kinjal Herrera Rehabilitation Inpatient - Assignment Occupational Therapy : Yuan OTR/L, Dinah AHMADI OTR/LKinjal - 05/15/2024 7:[address] [facility] Rehabilitation Inpt - Assignment - Text Rehabilitation Inpatient - Assignment Entered On: 05/15/2024 7:27 EDT Performed On: 05/15/2024 7:27 EDT by Karen PEDERSON, LONA, [facility] Rehabilitation Inpatient - Assignment Physical Therapy : Austyn ZAMORANO, Lamonte Jones PT, DPT, Summer - 05/15/2024 7:[address] [facility] Utilization Review Noteon Utilization Review Note OBS ORDERED. DX: dizziness, near syncope. OBS RECOMMENDED. DC WRITTEN. DC PLAN: HOME. ED UM TO F/U Patient has been discharged. Normal [facility] Vascular Lab Reporton 2023 Vascular Lab Report VASCULAR LAB PRELIMINARY REPORT CAROTID DUPLEX SCAN COMPLETE. REPORT TO FOLLOW. PRELIMINARY REPORT SHOWS NO SIGNIFICANT BILATERAL PLAQUE. PATENT VERTEBRAL ARTERIES. Normal [facility] APTTon 05-14-2024 aPTT Coag (Bld) [Time] 31.5 s Normal 27.0-38.0 [facility] Comment on above: Result Comment: APTT Interpretation: This test has not been validated to monitor heparin therapy. APTT test is used as an initial test for suspected bleeding disorder. Anti-Xa UFH test is used to monitor heparin therapy. Performed By: #### 9 554089, 681949, CD:[id number], 052693, 199554, 404748, 943089 ####[facility] [address] [place], [place] [id number] Medical Director: Jame Muhammad MD AUTO DIFFon 05-14-2024 Baso Count 0.02 x1000 Normal 0.00-0.20 [facility] Comment on above: Performed By: #### 9 698464, 191837, CD:[id number], 353926, 687973, 916942, 524647 ####[facility] [address] [place] [address] Medical Director: Jame Muhammad MD Basos % 0.3 % Normal [facility] Comment on above: Performed By: #### 9 775286, 582330, CD:[id number], 607734, 953791, 376610, 150543 ####[facility] [address] [place] [address] Medical Director: Jame Muhammad MD Eos Count 0.16 x1000 Normal 0.00-0.50 [facility] Comment on above: Performed By: #### 9 825310, 096207, CD:[id number], 975361, 127602, 293776, 223607 ####[facility] [address] [place] [address] Medical Director: Jame Muhammad MD Eosinophils/100 WBC (Bld) 2.2 % Normal [facility] Comment on above: Performed By: #### 9 374921, 434444, CD:[id number], 719649, 296870, 957997, 775507 ####[facility] [address] [place] [address] Medical Director: Jame Muhammad MD Lymph Count 1.02 x1000 Low 1.20-4.80 [facility] Comment on above: Performed By: #### 9 857683, 099017, CD:[id number], 055126, 328488, 470476, 224576 ####[facility] [address] [place] [address] Medical Director: Jame Muhammad MD Lymphocytes/100 WBC (Bld) 14.5 % Normal [facility] Comment on above: Performed By: #### 9 309778, 680742, CD:[id number], 770323, 866455, 945046, 583585 ####[facility] [address] [place] [address] Medical Director: Jame Muhammad MD [place] Count 0.41 x1000 Normal 0.10-1.00 [facility] Comment on above: Performed By: #### 9 218101, 042651, CD:384778738, 539195, 044945, 202911, 995084 ####[facility] [address] [place] [address] Medical Director: Jame Muhammad MD Monocytes/100 WBC (Bld) 5.8 % Normal [facility] Comment on above: Performed By: #### 9 390731, 807859, CD:111451374, 415628, 951081, 159697, 261302 ####[facility] [address] [place] [address] Medical Director: Jame Muhammad MD Neutrophil Count (ANC) 5.44 x1000 Normal 1.40-8.80 [facility] Comment on above: Performed By: #### 9 670771, 408814, CD:128644379, 759065, 868984, 801973, 027143 ####[facility] [address] [place] [address] Medical Director: Jame Muhammad MD Neutrophils/100 WBC (Bld) 77.2 % Normal [facility] Comment on above: Performed By: #### 9 806170, 804305, CD:749531293, 642366, 950960, 534668, 048980 ####[facility] [address] [place] [address] Medical Director: Jame Muhammad MD Basic Admission Informationo n 05-14-2024 Basic Admission Information Basic Admission Information Entered On: 05/14/2024 15:45 EDT Performed On: 05/14/2024 15:45 EDT by Philip Zhou Admission Height/Weight Height/Length Measured : 190.5 cm(Converted to: 6.25 ft, 75.00 in) Height/Length Dosing : 190.50 cm(Converted to: 6.25 ft, 75.00 in) Weight Measured : 112.5 kg(Converted to: 248 lb 0 oz, 248.020 lb) Weight Dosing : 112.5 kg(Converted to: 3,968.321 oz, 248.020 lb) BSA Measured : 2.44 BSA Dosing : 2.44 Body Mass Index Measured : 31 kg/m2 Body Mass Index Dosing : 31 Weight Measured Type of Scale : Standing Scale Last Documented Height/Length : Height/Length Dosin.50 cm 05/14/24 08:50:00 Height/Length Estimated: No results available. Height/Length Measured: No results available. Last Documented Weight and Type of Scale Used : Weight Measured Type of Scale: Standing Scale 05/14/24 08:50:00 Weight Dosin.5 kg 05/14/24 08:50:00 Weight Measured: No results available. Philip Zhou - 05/14/2024 15:45 EDT Belongings Valuables/Belongings Grid Valuables at Bedside Clothes : Pants, Shirt, Shoes Electronic Devices : Cell phone Personal Devices : Glasses Philip Zhou - 05/14/2024 15:45 EDT Room Orientation/Facility Policy Reviewed : Yes Room Orientation/Policy Reviewed With : Patient Patient Safety : Bed / Chair Alarm, Bed in low position, Call device within reach, Fall professor of physical education ID Band, Falling [place], ID band check, Mobility support items readily available, Night light, Non-Slip footwear, Personal items within reach, Sensory aids within reach, Upper/Half-length side-rails up, Traffic path in room free of clutter, Wheels locked Demonstrates Ability to Use Call Light Successfully : Yes Philip Zhou - 05/14/2024 15:[address] [facility] Comment on above: Order Comment: Order entered secondary to admission COMPMETAon 05-14-2024 Albumin [Mass/Vol] 4.1 g/dL Normal 3.4-5.0 [facility] Comment on above: Performed By: #### 9 916418, 084807, CD:[id number], 861174, 465490, 144125, 881599 ####[facility] [address] [place] [id number] Medical Director: Jame Muhammad MD Albumin/Globulin [Mass ratio] 1.6 {ratio} Normal [facility] Comment on above: Performed By: #### 9 319010, 407920, CD:869259014, 044438, 943508, 748986, 767632 ####[facility] [address] [place] [address] Medical Director: Jame Muhammad MD Alk Phos 69 unit/L Normal 45-117 [facility] Comment on above: Performed By: #### 9 363940, 853788, CD:891978956, 370698, 061639, 925395, 930902 ####[facility] [address] [place] [address] Medical Director: Jame Muhammad MD Bilirubin [Mass/Vol] 2.00 mg/dL High 0.30-1.20 [facility] Comment on above: Result Comment: Use of this assay is not recommended for patients undergoing treatment with eltrombopag due to the potential for falsely elevated results. Performed By: #### 9 418059, 569270, CD:588575054, 755138, 270954, 020160, 835888 ####[facility] [address] [place] [address] Medical Director: Jame Muhammad MD Calcium [Mass/Vol] 9.1 mg/dL Normal 8.7-10.4 [facility] Comment on above: Performed By: #### 9 031778, 656471, CD:291017192, 375841, 076074, 004404, 945078 ####[facility] [address] [place] [address] Medical Director: Jame Muhammad MD Chloride [Moles/Vol] 106 mmol/L Normal 98-107 [facility] Comment on above: Performed By: #### 9 374863, 461020, CD:770453404, 307134, 496476, 616796, 332462 ####[facility] [address] [place], [place] [id number]) [phone] Director: Jame Muhammad MD CO2 [Moles/Vol] 30.0 mmol/L Normal 20.0-31.0 [facility] Comment on above: Performed By: #### 9 514171, 054410, CD:627787946, 509114, 231726, 443592, 883011 ####[facility] [address] [place], [place] [id number]) [phone] Director: Jame Muhammad MD Creatinine [Mass/Vol] 1.5 mg/dL High 0.6-1.1 [facility] Comment on above: Performed By: #### 9 406354, 798296, CD:563150519, 611390, 304330, 202942, 833887 ####[facility] [address] [place], [place] [id number]) [phone] Director: Jame Muhammad MD GFR AA 56 [facility] Comment on above: Result Comment: Afri can [place] GFR Calc Medical judgement is necessary to interpret GFR. The calculated GFR may not accurately reflect renal status in patients >70 years, women, acutely ill hospitalized patients and patients with acute renal failure or known renal disease. The MDRD GFR formula is valid only for adults greater than 18 years of age. Note: Creatinine clearance (not GFR) should be used for drug dosing. Performed By: #### 9 303383, 705602, CD:420034311, 524703, 393722, 278348, 628319 ####[facility] [address] [place] [address] Medical Director: Jame Muhammad MD Globulin (S) [Mass/Vol] 2.5 g/dL [facility] Comment on above: Performed By: #### 9 681320, 349285, CD:006047887, 861582, 259804, 225164, 144135 ####[facility] [address] [place] [address] Medical Director: Jame Muhammad MD Glomerular Filtration Rate 47 mL/min/1.73m? Normal [facility] Comment on above: Result Comment: Non- GFR Calc Medical judgement is necessary to interpret GFR. The calculated GFR may not accurately reflect renal status in patients >70 years, women, acutely ill hospitalized patients and patients with acute renal failure or known renal disease. The MDRD GFR formula is valid only for adults greater than 18 years of age. Note: Creatinine clearance (not GFR) should be used for drug dosing. Performed By: #### 9 412265, 805569, CD:755014817, 256106, 156657, 636053, 123403 ####[facility] [address] [place] [address] Medical Director: Jame Muhammad MD Glucose [Mass/Vol] 132 mg/dL High 74-106 [facility] Comment on above: Performed By: #### 9 066843, 295497, CD:488694491, 112645, 382542, 184326, 088230 ####[facility] [address] [place] [address] Medical Director: Jame Muhammad MD GOT 17 unit/L Normal 15-37 [facility] Comment on above: Performed By: #### 9 044649, 898941, CD:775652886, 670230, 921229, 705436, 172544 ####[facility] [address] [place] [address] Medical Director: Jame Muhammad MD GPT 21 unit/L Normal 10-49 [facility] Comment on above: Performed By: #### 9 989689, 819941, CD:304930625, 851673, 891024, 342512, 065808 ####[facility] [address] [place] [address] Medical Director: Jame Muhammad MD Osmolality [Osmolality] 289 mosm/kg Normal 275-295 [facility] Comment on above: Performed By: #### 9 122471, 525087, CD:513139533, 156669, 350996, 311431, 705488 ####[facility] [address] [place], [place] [id number]) [phone] Director: Jame Muhammad MD Potassium [Moles/Vol] 4.2 mmol/L Normal 3.5-5.1 [facility] Comment on above: Performed By: #### 9 489470, 605154, CD:153547570, 696333, 744380, 381286, 050164 ####[facility] [address] [place], [place] [address]) [phone] Director: Jame Muhammad MD Protein [Mass/Vol] 6.6 g/dL Normal 5.7-8.2 [facility] Comment on above: Result Comment: Tota l Protein results may be increased in patients receiving dextran as a blood volume sweat box attendant Performed By: #### 9 491025, 268190, CD:565876827, 770069, 845470, 496057, 284338 ####[facility] [address] [place] [address] Medical Director: Jame Muhammad MD Sodium [Moles/Vol] 143 mmol/L Normal 135-145 [facility] Comment on above: Performed By: #### 9 545994, 463717, CD:185604066, 326972, 497835, 546998, 612707 ####[facility] [address] [place], [place] [id number]) [phone] Director: Jame Muhammad MD Urea nitrogen [Mass/Vol] 19 mg/dL Normal 9-23 [facility] Comment on above: Result Comment: - Ve nipuncture should occur prior to N-Acetyl Cysteine (NAC) or Metamizole (Sulpyrine) administration due to the potential for falsely depressed results. - Blood samples from some patients with monoclonal gammopathies may produce falsely elevated results Performed By: #### 9 033491, 524365, CD:639717255, 811613, 726729, 139997, 627766 ####[facility] [address] [place] [address] Medical Director: Jame Muhammad MD Urea nitrogen/Creatinine [Mass ratio] 12.7 mg/mg Normal [facility] Comment on above: Performed By: #### 9 720629, 754117, CD:971035269, 924137, 740489, 508799, 046991 ####[facility] [address] [place], [place] [address] Medical Director: Jame Muhammad MD CT BRAIN HEAD WO CONTRASTon 05-14-2024 CT BRAIN HEAD WO CONTRAST CT HEAD WITHOUT IV CONTRAST CLINICAL STATEMENT: DIZZINESS. TECHNOLOGIST NOTES: WHAT SYMPTOMS ARE YOU EXPERIENCING?; dizzy, syncope 3 days ago, s/p cyst removed from neck TECHNIQUE: Axial CT images from skull base to vertex without IV contrast. This exam was performed according to the departmental dose-optimization program which includes automated exposure control, adjustment of the mA and/or kV according to patient size and/or use of iterative reconstruction technique. COMPARISON: None. FINDINGS: There is no acute intracranial hemorrhage, mass, mass effect or abnormal extra-axial fluid collection. No evidence of an acute territorial infarct is identified. Bilateral basal ganglia small hypodensities, possibly remote lacunar infarcts or prominent perivascular spaces. The ventricles are normal. The skull base and calvarium demonstrate no abnormality. The included paranasal sinuses are clear. Included mastoid air cells are clear. IMPRESSION: No acute intracranial abnormality. Electronically signed by: Noel Shrestha DO 05/14/2024 03:00 PM EDT RP Technologist: ALLEN KELLER Dictated By: NOEL SHRESTHA DO Signed By: NOEL SHRESTHA DO Signed Out: 05/14/24 15:00:[address] [facility] CT NECK LARYNX WO CONTRASTon 05-14-2024 CT NECK LARYNX WO CONTRAST EXAMINATION: CT NECK LARYNX WO CONTRAST RadLex: CT NECK WITHOUT IV CONTRAST CLINICAL HISTORY: s/p cyst removal; dizziness;OTHER REASON; WHAT SYMPTOMS ARE YOU EXPERIENCING?; dizzy, syncope 3 days ago, s/p cyst removed from neck TECHNIQUE: CT imaging of the neck with multiplanar reformations. All CT scans at this facility use dose modulation, iterative reconstruction, and/or weight based dosing when appropriate to reduce radiation dose to as low as reasonably achievable. Contrast: None. COMPARISON: None available. FINDINGS: Support devices: None. Intracranial structures: Refer to CT head performed concurrently and reported separately for intracranial findings. Sinuses/mastoids/middle ears: Imaged paranasal sinuses are clear. Mastoid air cells and middle ears are clear. Orbits: The visualized orbital soft tissues are unremarkable. Salivary glands: Parotid and submandibular glands are normal. Nasopharynx: Normal. Oral cavity and oropharynx: Normal. Hypopharynx and larynx: Normal. Visualized trachea: Unremarkable. Thyroid: Normal left thyroid lobe. Absent right thyroid lobe. Vascular: Normal noncontrasted appearance. Lymph nodes: No lymphadenopathy. Deep soft tissue spaces: Normal. No retropharyngeal fluid. Superficial soft tissues: Normal. Bones: Moderate degenerative changes of C4-T1. Upper chest: Imaged portions of the upper chest are normal. IMPRESSION: No acute findings of the neck. Electronically signed by: Brenton Pérez MD 05/14/2024 02:57 PM EDT RP Technologist: ALLEN KELLER Dictated By: BRENTON PÉREZ MD Signed By: BRENTON PÉREZ MD Signed Out: 05/14/24 14:57:[address] [facility] ED Data COVERSTITCH BINDER - Texton 024 ED Data COVERSTITCH BINDER - Text ED Data COVERSTITCH BINDER Entered On: 05/14/2024 9:16 EDT Performed On: 05/14/2024 8:50 EDT by Scarlett Melton RN ED General Intake Information Information Given By : Patient Shelby Coma : Document Pat Coma Scale Problem History : Document Problem History Procedure History : Document Procedure History Safety Screening : Document Safety Screening Referral Source : Home Mode of Arrival * : Car / Walk-In ED KINDER1 Falls Risk : Document Falls Assessment Infection Screening : Document Infection Screening Depression Screening : Document Depression Screening Would you accept a blood transfusion if necessary? : Yes Social History : Document Social History Currently or : Not Applicable Scarlett Melton RN - 05/14/2024 9:12 EDT Pat Coma Scale Eye Opening : Spontaneously Best Verbal Response : Oriented Best Motor Response : Obeys simple commands Shelby Coma Score (Ref) : 15 Scarlett Melton RN - 05/14/2024 9:12 EDT Problem History (As Of: 05/14/2024 09:16:33 EDT) Problems(Active) Hypothyroidism (SNOMED CT :[id number] ) Name of Problem: Hypothyroidism ; Recorder: Tessie Robledo RN; Confirmation: Confirmed ; Classification: Patient/Family Stated ; Code: [id number] ; Contributor System: Stereotaxis ; Last Updated: 12/26/2013 17:39 EDT ; Life Cycle Date: 12/26/2013 ; Life Cycle Status: Active ; Vocabulary: SNOMED CT Diagnoses(Active) Dizziness Date: 05/14/2024 ; Diagnosis Type: Reason For Visit ; Confirmation: Confirmed ; Clinical Dx: Dizziness ; Classification: Medical ; Clinical Service: Non-Specified ; Code: PNED ; Probability: 0 ; Diagnosis Code: [id number] Syncope/Near syncope Date: 05/14/2024 ; Diagnosis Type: Reason For Visit ; Confirmation: Confirmed ; Clinical Dx: Syncope/Near syncope ; Classification: Medical ; Clinical Service: Non-Specified ; Code: PNED ; Probability: 0 ; Diagnosis Code: [id number] Procedure History ED Urinary Catheter Present on Admit to ED? : No Devices Present on Arrival To ED : None Scarlett Melton RN - 05/14/2024 9:12 EDT - Procedure History (As Of: 05/14/2024 09:16:33 EDT) Safety Screening Abuse/Violence Concerns? : Patient denies Does the patient have a medically restricted extremity? : No Scarlett Melton RN - 05/14/2024 9:12 EDT KINDER1 Fall Risk Assessment *Presents to ED Because of Falls : No *Age > 70 : No *Altered Mental Status : No *Impaired Mobility : No *Nursing Judgment : Yes Falls Risk Assessment : High risk for falls Fall Interventions Initiated : Hourly rounding, Sensory aids/personal items within reach, Non-skid footwear/socks in place, Call light within reach and education provided Scalrett Melton RN - 05/14/2024 9:12 EDT Infection Screening Travel outside of [place] within past 21 days? : No Positive COVID test in the last 10 days? : No Exposure to and/or close contact with a person who has a laboratory-confirmed COVID test within the last 48 hours. : Scarlett Noonan RN - 05/14/2024 9:12 EDT Depression Screening Patient able to verbalize? : Yes Feeling Down, Depressed, Hopeless : Not at all Little Interest - Pleasure in Activities : Not at all Initial Depression Screen Score : 0 Depression Screening Score 0 : No IP Pt being evaluated or treated for BH conditions : No Scarlett Melton RN - 05/14/2024 9:12 EDT Social History Are you being seen for an alcohol related problem? : No Do you or one of your family members feel like you have a drinking problem? : No Scarlett Melton RN - 05/14/2024 9:12 EDT Social History (As Of: 05/14/2024 09:16:33 EDT) Alcohol: Denies Alcohol Use (Last Updated: 12/26/2013 17:40:00 EDT by Tessie Robledo RN ) Tobacco: Never smoker, Exposure No Exposure. (Last Updated: 12/26/2013 17:40:08 EDT by Tessie Robledo RN) Substance Abuse: Denies Substance Abuse (Last Updated: 12/26/2013 17:40:01 EDT by Tessie Robledo RN ) [facility] ED Discharge Educationon ED Discharge Education [facility] ED Emergency Severity Index Adult-Texton 05-14-2024 ED Emergency Severity Index Adult-Text MARVIN - Adult Entered On: 05/14/2024 9:16 EDT Performed On: 05/14/2024 9:12 EDT by Scarlett Melton RN DCP GENERIC CODE Visit Reason : dizzy, syncope 3 days ago Tracking Triage Date/Time : 05/14/2024 09:16 EDT Tracking Reg Status : Requested Tracking Acuity : 3H-Urgent Tracking Group : [facility] Tracking Scarlett Melton RN - 05/14/2024 9:[address] [facility] ED Patient Summaryon [address] [facility] Emergency Department Discharge Instructions [address] [place] [address] (Patient Copy) Name: ARTURO SNOW : 1955 Allergies: No Known Allergies Diagnosis: Visit Date: 05/14/2024 08:46:06 [facility]#: [id number] Current Date Time: 05/14/2024 15:47:25 Address: [address] [place] [address] [place] [address] Primary Care Provider: Name: OSKAR GALVAN Emergency Department Care Providers: Primary Physician: PRIYANKA GREER MD Thank you for choosing [facility] for your emergency care. You are very important to us. Our goal is to demonstrate our high quality medical care, and provide you with a very good patient experience. You may receive a survey about our service. Please take the time to complete the survey and return it so we can continue to enhance our service. Thank you again for allowing the [facility] Emergency Department to care for your medical needs. If you have questions about your care or follow up information please contact us at [phone]. Follow-Up Instructions ARTURO SNOW has been given these follow-up instructions: Patient Education Materials MEDINACARMENARTURO Givens has been given the following patient education materials: BEFORE YOU LEAVE Set up your [facility] [employer] account! [employer] is a secure, online health management tool that connects you to portions of your hospital-based electronic medical record, allowing you to see test results, manage appointments, access discharge care instructions and much more. You can access [employer] from a computer, tablet or smartphone. Enrollment/registration is required. If you do not have a [employer] account, please provide us with an email address before you leave so that we may set up an account for you. New to [employer]! You may now securely connect some of the health management apps you use (e.g., fitness trackers, dietary trackers, etc.) to your health record in [facility] [employer]. This new feature provides expanded access to your health and wellness data, which will help you and your care team make informed decisions about your health care. If you are interested in using a health management odalis not currently connected to [employer], contact a Helicopter Officer at [phone] or [email or web address]. We will determine if the odalis meets the technical requirements to connect to [facility] [employer] and assure the security of your private health information. Medication Information ARTURO SNOW has been given the following medication information: Only Take The Medicines On This List. Keep This List and Bring It To Your Next Appointment. Medicines To Take At Home: Medicine Name (Generic Name) Amount to Take How to Take it How Often to Take it Additional Instructions Next Dose Due Synthroid 150 mcg (0.15 mg) oral tablet (levothyroxine) 150 mcg By Mouth DAILY Flomax 0.4 mg oral capsule (tamsulosin) 0.4 mg By Mouth DAILY Understanding your home medicine is important to keeping you healthy. If you are taking medications that are not on the preceding list, please call your doctor to see if you are to continue that medication. It is important that you do not skip or make up doses. If you are ordered an antibiotic, finish taking all the medicine, unless your doctor tells you otherwise. Call your doctor if you have questions or problems. Take the medicine list with you to all follow up appointments. If you or a loved one is struggling with a mental health or substance abuse issue, please call [facility] at [phone] or the National Suicide Prevention Lifeline at . I, MEDINANIKIARTURO, have received the follow-up provider(s) list, medication information and patient education materials/instructions and have verbalized understanding. Patient Signature Date Time Provider Signature Date Time Normal [facility] ED Progress Noteon 4 ED Progress Note 0850 - Present tot E D from home for intermittent dizziness. Patient is A&Ox3 and on room air. Patient states 3days ago he had dizziess with everything spinning. States he blacked out and fell at time of event and dos not remember much. States he went to [facility] at that time. Per patient, this morning at breakfast he felt an episode come on and began to get very dizzy and lightheaded. Came in for further care. Patient verbalizes posterior neck cyst that was removed 6weeks ago. Since then patient states he has had headaches and dizziness when he leans his head back. Currently patient states he is dizzy but the room is not spinning. Denies any nausea, headache or shortness of breath at present time. Connected to monitor, vitals done on room air. ECG completed. IV access established and labs drawn. Brother at bedside. 904 - MD at bedside to assess 1500 - Patient taken to MRI per transport 1509 - Spoke to CARLOS ENRIQUE Talley from [facility] for report. Family updated on plan of care. 1510 - Spoke to MRI - will transport patient to room when finished with test [facility] ED Triage COVERSTITCH BINDER - Texton 05-14 ED Triage COVERSTITCH BINDER - Text ED Triage COVERSTITCH BINDER Enter ed On: 05/14/2024 9:15 EDT Performed On: 05/14/2024 8:50 EDT by Scarlett Melton RN Triage Temperature Oral : 36.5 degC(Converted to: 97.7 degF) Systolic Blood Pressure : 174 mmHg (HI) Diastolic Blood Pressure : 93 mmHg (HI) Heart Rate : 69 bpm Respiratory Rate : 16 br/min Oxygen Saturation : 96 % Oxygen Therapy : Room air ED Document Sepsis Screening : Document Sepsis Screening ED Document Reason for Visit : Document Reason for Visit Scale Type : Standing Scale Weight Dosing : 112.5 kg(Converted to: 248 lb 0 oz) BMI Dosing Calculation : 31 Height/Length Dosing : 190.50 cm(Converted to: 6 ft 3 in) Pain Symptoms : No Scarlett Melton RN - 05/14/2024 9:12 EDT (As Of: 05/14/2024 09:15:39 EDT) Problems(Active) Hypothyroidism (SNOMED CT :92423796 ) Name of Problem: Hypothyroidism ; Recorder: Tessie Robledo RN; Confirmation: Confirmed ; Classification: Patient/Family Stated ; Code: [id number] ; Contributor System: Stereotaxis ; Last Updated: 12/26/2013 17:39 EDT ; Life Cycle Date: 12/26/2013 ; Life Cycle Status: Active ; Vocabulary: SNOMED CT Diagnoses(Active) Dizziness Date: 05/14/2024 ; Diagnosis Type: Reason For Visit ; Confirmation: Confirmed ; Clinical Dx: Dizziness ; Classification: Medical ; Clinical Service: Non-Specified ; Code: PNED ; Probability: 0 ; Diagnosis Code: [id number] Syncope/Near syncope Date: 05/14/2024 ; Diagnosis Type: Reason For Visit ; Confirmation: Confirmed ; Clinical Dx: Syncope/Near syncope ; Classification: Medical ; Clinical Service: Non-Specified ; Code: PNED ; Probability: 0 ; Diagnosis Code: [id number] Reason for Visit (As Of: 05/14/2024 09:15:39 EDT) Problems(Active) Hypothyroidism (SNOMED CT :57537033 ) Name of Problem: Hypothyroidism ; Recorder: Tessie Robledo RN; Confirmation: Confirmed ; Classification: Patient/Family Stated ; Code: [id number] ; Contributor System: Stereotaxis ; Last Updated: 12/26/2013 17:39 EDT ; Life Cycle Date: 12/26/2013 ; Life Cycle Status: Active ; Vocabulary: SNOMED CT Diagnoses(Active) Dizziness Date: 05/14/2024 ; Diagnosis Type: Reason For Visit ; Confirmation: Confirmed ; Clinical Dx: Dizziness ; Classification: Medical ; Clinical Service: Non-Specified ; Code: PNED ; Probability: 0 ; Diagnosis Code: [id number] Syncope/Near syncope Date: 05/14/2024 ; Diagnosis Type: Reason For Visit ; Confirmation: Confirmed ; Clinical Dx: Syncope/Near syncope ; Classification: Medical ; Clinical Service: Non-Specified ; Code: PNED ; Probability: 0 ; Diagnosis Code: [id number] Sepsis Screening Sepsis Vitals Screening ED : None/ NA(Peds) Scarlett Melton RN - 05/14/2024 9:[address] [facility] HEMOon 05-14-2024 DIFF? No Normal [facility] Comment on above: Performed By: #### 9 [id number], 466812, CD:[id number], 282424, 671305, 780364, 374048 ####[facility] [id number] [place] [id number] Medical Director: Jame Muhammad MD Erythrocyte distribution width (RBC) [Ratio] 14.5 % Normal 11.5-14.5 [facility] Comment on above: Performed By: #### 9 154738, 620582, CD:[id number], 481136, 122214, 109181, 572201 ####[facility] [address] [place], [place] [address] Medical Director: Jame Muhammad MD Hematocrit (Bld) [Volume fraction] 50.4 % Normal 41.0-52.0 [facility] Comment on above: Performed By: #### 9 404989, 934665, CD:384536150, 384147, 902593, 482598, 061204 ####[facility] [address] [place] [address] Medical Director: Jame Muhammad MD Hemoglobin (Bld) [Mass/Vol] 17.2 g/dL Normal 13.5-17.5 [facility] Comment on above: Performed By: #### 9 675052, 549149, CD:439482102, 991884, 004389, 388528, 230847 ####[facility] [address] [place] [address] Medical Director: Jame Muhammad MD Instr WBC 7.[address] [facility] Comment on above: Performed By: #### 9 056629, 150201, CD:[id number], 359139, 001737, 636405, 742698 ####[facility] [address] [place], [place] [id number]) [phone] Director: Jame Muhammad MD MCH (RBC) [Entitic mass] 30.9 pg Normal 27.0-34.0 [facility] Comment on above: Performed By: #### 9 071495, 676008, CD:032105721, 477710, 152618, 601352, 000600 ####[facility] [address] [place] [address] Medical Director: Jame Muhammad MD MCHC (RBC) [Mass/Vol] 34.0 g/dL Normal 32.0-37.0 [facility] Comment on above: Performed By: #### 9 855544, 197862, CD:102369759, 522215, 539025, 651002, 807065 ####[facility] [address] [place] [address] Medical Director: Jame Muhammad MD MCV (RBC) [Entitic vol] 90.7 fL Normal 80.0-100.0 [facility] Comment on above: Performed By: #### 9 490487, 819850, CD:872849687, 397600, 915365, 172325, 961417 ####[facility] [address] [place] [address] Medical Director: Jame Muhammad MD MDW 15.87 Normal 13.98-20.00 [facility] Comment on above: Result Comment: MDW Interpretation: - For adults age 18-89 in ED, MDW >20.0 may be associated with a higher risk of Sepsis during the first 12 hours of hospital admission. - The predictive value of MDW for identifying Sepsis in patients with hematological abnormalities has not been established. - Interpret with caution when immature granulocytes, variant lymphs, or blast cells are noted on the differential. - Confirm patient age is within intended use population (18-89 years) for MDW. - For ED adults suspected of Sepsis, MDW less than or equal to 20.0 does not rule out Sepsis or the risk of Sepsis. Performed By: #### 9 218429, 487483, CD:[id number], 915879, 637871, 833535, 249630 ####[facility] [address] [place] [address] Medical Director: Jame Muhammad MD Nucleated RBC 0 /100WBC Normal [facility] Comment on above: Performed By: #### 9 089001, 083889, CD:105831808, 451809, 883893, 168414, 500705 ####[facility] [address] [place] [address] Medical Director: Jame Muhammad MD Platelet 168 x10 Normal 150-450 [facility] Comment on above: Performed By: #### 9 009904, 249617, CD:766861185, 127667, 131264, 161846, 693493 ####[facility] [address] [place] [address] Medical Director: Jame Muhammad MD Platelet mean volume (Bld) [Entitic vol] 8.9 fL Normal 7.4-10.4 [facility] Comment on above: Performed By: #### 9 584383, 778061, CD:318202980, 837513, 404957, 482297, 577230 ####[facility] [address] [place] [address] Medical Director: Jame Muhammad MD RBC 5.56 x10 Normal 4.70-6.10 [facility] Comment on above: Result Comment: Note : RBC morphology is normal unless otherwise stated. Evaluation performed only if differential is requested. Performed By: #### 9 047603, 521096, CD:692332867, 879930, 243067, 289366, 878956 ####[facility] [address] [place] [address] Medical Director: Jame Muhammad MD WBC 7.0 x10 Normal 4.5-11.0 [facility] Comment on above: Performed By: #### 9 886725, 028718, CD:948995648, 997523, 175643, 881226, 342640 ####[facility] [address] [place] [address] Medical Director: Jame Muhammad MD MG LEVELon 05-14-2024 Magnesium [Mass/Vol] 1.9 mg/dL Normal 1.6-2.6 [facility] Comment on above: Performed By: #### 9 861984, 374484, CD:099153634, 249847, 076662, 796885, 995087 ####[facility] [address] [place] [address] Medical Director: Jame Muhammad MD MR BRAIN WO CONTRASTon 05-14 MR BRAIN WO CONTRAST EXAM: MR BRAIN WO CONTRAST 05/14/2024 15:05 COMPARISON: Noncontrast MR Angiography of the [place] 05/14/2024 ; Noncontrast Head CT 05/14/2024 CLINICAL INDICATION: Altered Mental Status ; syncope; dizziness and giddiness TECHNIQUE: Noncontrast MRI of the Brain was performed , per site Standard protocol. FINDINGS: LIMITATIONS: Given technical artifacts related to slight difficulties with patient positioning and motion, in addition to the lack of intravenous contrast: BRAIN/VENTRICLES: No definite mass effect/midline shift, intra-/extra-axial fluid collection, abnormally-restricted diffusion, or abnormal magnetic susceptibility artifact, within the limits of this exam. There is minimal/mild, mixed confluent and scattered leukoaraiosis, most notable about both fronto-temporal regions, and slightly worse on the left, compatible with sequela of chronic microvascular ischemic disease. There is mild asymmetric ectasia of the left lateral ventricle relative to the right side, with numerous scattered ectatic perivascular spaces most notable throughout both basal ganglia, and otherwise age-appropriate, generalized parenchymal volume loss. VASCULAR: Please see report for concurrent Noncontrast MR Angiography of the [place] 05/14/2024 for further comments regarding those structures. ORBITS: No definite abnormality, within the limits of this study. PARANASAL SINUSES/MASTOIDS: At least trace to minimal scattered paranasal sinus mucosal thickening is most notable within the ethmoid sinus. At least minimal fluid signal is present within the right mastoid air cell complex. MUSCULOSKELETAL: At least minimal to mild upper cervical degenerative disease is only incidentally demonstrated. Very minimal rudimentary unfused ossification center is present within the mid-body of C2. Marrow signal otherwise appears physiologic for the patient's age. . IMPRESSION: 1. No definite evidence of acute intracranial process, within the limits of this noncontrast MR exam. 2. Sequela of minimal/mild, chronic microvascular ischemic disease, as described. 3. Mild asymmetric ectasia of the left lateral ventricle relative to the right side, with numerous scattered ectatic perivascular spaces most notable throughout both basal ganglia, and otherwise age-appropriate, generalized parenchymal volume loss. 4. Paranasal sinus and right mastoid air cell complex disease, as described. . RECOMMENDATIONS: 1. Please see report for concurrent Noncontrast MR Angiography of the [place] 05/14/2024 for further comments regarding those structures. 2. If unexplained symptoms persist, consider completion MRI of the Brain, With Contrast[, and/or MRA of the Neck Vessels,] for further evaluation[, as directed by the neurologic exam]. . Electronically signed by: Max Hall MD 05/14/2024 03:47 PM EDT RP Technologist: TRISTEN GARCIA Dictated By: MAX HALL MD Signed By: MAX HALL MD Signed Out: 05/14/24 15:47:[address] [facility] MRA BRAIN WO CONTRASTon 08- MRA BRAIN WO CONTRAST EXAM: MRA BRAIN WO CONTRAST 05/14/2024 15:05 COMPARISON: Noncontrast MRI of the Brain 05/14/2024 ; Noncontrast Head CT 05/14/2024 CLINICAL INDICATION: Altered Mental Status ; syncope; dizziness and giddiness TECHNIQUE: Noncontrast MR Angiography of the [place] was performed per standard site protocol. Maximum Intensity Projection images were created from these data, and reformatted from multiple perspectives. FINDINGS: LIMITATIONS: Given technical artifacts related to slight difficulties with patient positioning and motion, as well as the lack of intravenous contrast: ANTERIOR CIRCULATIONS: No definite emergent large vessel occlusion, arterial dissection, or aneurysm, within the limits of this exam. Minimal to mild endoluminal surface irregularity is scattered about the distal petrous, cavernous, and supraclinoid segments of both internal carotid arteries, slightly worse on the left, secondary to atherosclerotic plaque, without hemodynamically-signifi cant stenosis. The right A1 segment is markedly hypoplastic, lessening distally throughout the remainder of the right anterior cerebral artery. POSTERIOR CIRCULATIONS: No definite emergent large vessel occlusion, arterial dissection, or aneurysm, within the limits of this exam. Minimal endoluminal surface irregularity is scattered about the minimally-tortuous posterior intracranial arterial circulations, secondary to atherosclerotic plaque, without hemodynamically-signifi cant stenosis. 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 . IMPRESSION: 1. No definite emergent large vessel occlusion, arterial dissection, or aneurysm, within the limits of this exam. 2. Sequelae of atherosclerotic arterial disease, as well as vascular tortuosity and normal developmental anatomic variation, without additional hemodynamically-signifi cant acquired stenosis, as described. . RECOMMENDATIONS: 1. If unexplained symptoms persist, consider CT Angiography of the [place] and Neck Vessels, With Contrast, for further evaluation. . Electronically signed by: Max Hall MD 05/14/2024 03:52 PM EDT Technologist: TRISTEN GARCIA Dictated By: MAX HALL MD Signed By: MAX HALL MD Signed Out: 05/14/24 15:52:[address] [facility] MRA BRAIN WO CONTRAST MRI Checklist Ente red On: 05/14/2024 14:46 EDT Performed On: 05/14/2024 14:45 EDT by Scarlett Melton RN MRI Checklist Have all personal electronic devices been secured in the patient room or with a patient : Yes Has the patient been changed into a hospital gown and/or hospital pants? : Yes Have all EKG/Telemetry electrodes been removed from the patient? : Yes Hazardous Factors MR OED EV : ALL items answered NO Interfering Factors MR OED EV : ALL items answered NO Information Given by : Patient Scarlett Melton RN - 05/14/2024 14:[address] [facility] Roping Tender Detailson 2023 Roping Tender Details Roping Tender Details Entered On: 05/14/2024 15:39 EDT Performed On: 05/14/2024 15:39 EDT by Gerri Uriarte RN Roping Tender Details Transport Mode Order Detail EV : Wheelchair Isolation Precautions RTF : Communication CONSTANT Order, 05/14/2024 13:40:00 EDT, Constant Order, Current ACLS Provider may, Initiate [place] [employer] Advanced Cardiac Life support Algorithm per patient code status, Ordered Communication CONSTANT Order, 05/14/2024 13:40:00 EDT, Constant Order, STAT EKG for Chest Pain, STAT ABGs for Acute Respiratory Distress, STAT Potassium/Magnesium for any significant change in condition/rhythm, Ordered Notify Provider, 05/14/2024 13:40:00 EDT, Constant Order, Contact OBS Unit PA/BUSINESS DEVELOPMENT EXECUTIVE for any change in clinical status, positive test results, abnormal rhythm, or EKG changes, Ordered Oxygen Therapy, 05/14/2024 13:40:00 EDT, Nasal Cannula, 2-3L, PRN, Ordered Consult Physician, 05/14/2024 12:37:00 EDT, KRISTAN PORRAS, DAVE, dizziness, Ordered Level of Care Order, 05/14/2024 12:37:00 EDT, Medical Outpatient with Observation Services, [facility], Ordered Transfer Care of Patient to Attending, 05/14/2024 12:37:00 EDT, Upon discharge from the ED, all continued medications and orders become the responsibility of the admitting/attending physician., Ordered Misc Nutrition Task to Nursing, 05/14/2024 09:09:00 EDT, Constant Order, NPO, Ordered Isolation Precaution Order Detail EV : NONE IV Order Detail - EV : Yes Oxygen Order Detail EV : No Order Detail EV : No Pacemaker Order Detail : 0 Roping Tender Details Review Status : Initial Review Nurse Collects Blood Specimens : Ashley Uriarte RN, Gerri - 05/14/2024 15:[address] [facility] Comment on above: Order Comment: Order entered secondary to admission PT INRon 05-14-2024 INR Coag (PPP) [Relative time] 1.1 {INR} Normal [facility] Comment on above: Result Comment: INR Reference Range: Normal reference range for INR on patients not on anticoagulant therapy: 0.9-1.1 General therapeutic range for patients on anticoagulant therapy: 2.0-3.5 Performed By: #### 9 020156, 172355, CD:[id number], 738509, 883554, 137011, 170658 ####[facility] [address] [place] [address] Medical Director: Jame Muhammad MD Protime Patient 12.7 seconds Normal 9.8-12.8 [facility] Comment on above: Performed By: #### 9 587322, 108348, CD:032609746, 340933, 362679, 519055, 294168 ####[facility] [address] [place] [address] Medical Director: Jame Muhammad MD Pharmacy Clinical Interventi ons-Texton 05-14-2024 Pharmacy Clinical Interventions-Text Pharmacy Clinical Interventions Entered On: 05/14/2024 11:11 EDT Performed On: 05/14/2024 11:10 EDT by Annie Blackwood CPhT Interventions Intervention Type Pharmacy : Medication history Pharmacy Order Initiated By : Shaft Headman Clinical Importance Pharmacy : Potentially minor Prescriber Response Pharmacy : Corrected prior to contact Patient Clinical Outcome Pharmacy : Avoided potential risk Pharmacist Intervention Time : 10 Pharmacy Additional Information : updated med list with pt addeed all meds Annie Blackwood CPhT - 05/14/2024 11:[address] [facility] Progress Note-Physicianon Progress Note-Physician Patient: ARTURO SNOW Age: 68 years Sex: Male : 1955 Associated Diagnoses: None Author: ARINA QUARLES CNP BRIEF ADMISSION NOTE Patient is a 68-year-old male with medical history significant for hypothyroidism and BPH who presents to the ED today for syncope and headache. Patient states 2 days ago he was getting his haircut when he became extremely diaphoretic and dizzy and then lost consciousness slumping forward in the chair, EMS was called and he was transported to [facility] where he believes he received a CT brain and then was discharged home and told to follow-up with his PCP on Wednesday. This morning patient had a similar episode but did not completely lose consciousness and family notified EMS. Patient denies chest pain, shortness of breath, nausea/vomiting but does endorse headache 5/10 in occipital region which is worsened with flexion and extension of neck, blurry vision and feeling fuzzy. Currently, patient is sitting up comfortably in bed with family at bedside, is alert/oriented x 4. Of note, 6 weeks ago patient had cyst removed from his neck which he states was tangled up in a bunch of nerves. Headaches began shortly after cyst removal. Physical exam demonstrates S1/S2 noted, RRR, lungs CTA throughout with no increased effort of breathing noted, abdomen is soft/nontender/nondiste nded with normal bowel sounds, PERRLA, EOMI, alert/oriented x 4, no focal deficits, CN1 through CN12 grossly intact, full ROM with 5+ motor strength in all 4 extremities, skin is warm/dry/pink/intact with good peripheral pulses and brisk cap refill, patient does demonstrate slightly limited ROM of neck with flexion and extension stating this does make the headache and dizziness worse. Patient has been hypertensive with max systolic 174 and max diastolic 110, all other VS WNL. Creatinine 1.5, bilirubin 2.00, all other labs unremarkable at this time. EKG shows normal sinus rhythm. CXR shows no acute cardiopulmonary processes. ASSESSMENT: Syncope Headache Difficulty with vision Hypertension PLAN: Continue home medications 25 Mg meclizine p.o. 3 times daily as needed dizziness 4 Mg Zofran IVP as needed nausea 10 Mg hydralazine IVP as needed SBP greater than 160 Normal saline at 100/hour CT brain/head/neck without contrast Carotid duplex Echocardiogram MR/MRA brain without contrast PT/OT evaluation and treatment Neurochecks every 4 hours Monitor CBCD, CMP daily Obtain lipid panel ATTENDING TO FOLLOW PATIENT Normal [facility] TROPONIN HS 0HRon 05-14-2024 Troponin HS 0 Hr <3 Low 3-53 [facility] Comment on above: Result Comment: Spec imens from some individuals with pathologically high gamma globulin levels may demonstrate depressed troponin values Performed By: #### [id number], [id number] ####[facility] [id number] [place] [address] Medical Director: Jame Muhammad MD TROPONIN HS 2HRon 05-14-2024 Delta Troponin 2 Hr 0 pg/mL Normal 0-14 [facility] Comment on above: Result Comment: The term acute myocardial infarction should be used when there is acute myocardial injury with clinical evidence of acute myocardial ischemia and the rise or fall of serial Troponin HS values (delta troponin) greater than or equal to 15 pg/mL with at least one Troponin HS value above the 99th percentile reference range Performed By: #### C [id number] ####[facility] [id number] [place] [address] Medical Director: Jame Muhammad MD Troponin HS 2 Hr 3 pg/mL Normal 3-53 [facility] Comment on above: Result Comment: Spec imens from some individuals with pathologically high gamma globulin levels may demonstrate depressed troponin values Performed By: #### C [id number] ####[facility] [id number] [place] [address] Medical Director: Jame Muhammad MD TROPONIN HS 6HRon 05-14-2024 Delta Troponin 6 Hr 0 pg/mL Normal 0-14 [facility] Comment on above: Result Comment: The term acute myocardial infarction should be used when there is acute myocardial injury with clinical evidence of acute myocardial ischemia and the rise or fall of serial Troponin HS values (delta troponin) greater than or equal to 15 pg/mL with at least one Troponin HS value above the 99th percentile reference range Performed By: #### C [id number] ####[facility] [id number] [place] [address] Medical Director: Jame Muhammad MD Troponin HS 6 Hr 3 pg/mL Normal 3-53 [facility] Comment on above: Result Comment: Spec imens from some individuals with pathologically high gamma globulin levels may demonstrate depressed troponin values Performed By: #### C [id number] ####[facility] [id number] [place] [address] Medical Director: Jame Muhammad MD XR CHEST PORTABLEon 05-14-20 XR CHEST PORTABLE EXAM DESCRIPTION: XR CHEST PORTABLE RadLex: XR CHEST 1 VIEW CLINICAL HISTORY: CHEST PAIN. WHAT SYMPTOMS ARE YOU EXPERIENCING?; CHEST PAIN. COMPARISON: None FINDINGS: Lungs: There is bibasilar subsegmental atelectasis. No consolidation. Pleura: There is no pleural effusion. There is no pneumothorax. Mediastinum: The cardiomediastinal silhouette is normal considering magnification artifact on portable AP chest examinations. Lines: None. IMPRESSION: No acute cardiopulmonary process. Electronically signed by: Jose Arroyo MD 05/14/2024 10:02 AM EDT RP Technologist: AB ARANGO Dictated By: JOSE ARROYO MD Signed By: JOSE ARROYO MD Signed Out: 05/14/24 10:02:[address] [facility] Basophil percentageOrdered B y: Amina Jaimes on 01-25-2023 Bilirubin [Mass/Vol] 1.80 mg/dL 0.20-1.00 [facility] Comment on above: For patients on eltr ombopag therapy, use of Dimension [place] TBIL is not recommended. Chloride [Moles/Vol] 104 mmol/L 98-107 [facility] Glucose [Mass/Vol] 140 mg/dL 74-106 [facility] Comment on above: Fasting Glucose resu lt greater than or equal to 126 mg/dL suggests DIABETES MELLITUS per A.D.A. criteria. Potassium [Moles/Vol] 4.0 mmol/L 3.5-5.1 [facility] Protein [Mass/Vol] 6.9 g/dL 6.4-8.2 [facility] Sodium [Moles/Vol] 140 mmol/L 136-145 [facility] Laboratory - Chemistry and C hemistry - challengeOrdered By: Amina Jaimes on 01-25-2023 ALP [Catalytic activity/Vol] 72 U/L 45-117 [facility] ALT [Catalytic activity/Vol] 40 U/L 16-61 [facility] CO2 [Moles/Vol] 29.0 mmol/L 21.0-32.0 [facility] Globulin (S) [Mass/Vol] 2.9 g/dL 2.2-4.2 [facility] Urea nitrogen/Creatinine [Mass ratio] 12.0 mg/mg 10-20 [facility] No Panel InformationOrdered By: Amina Jaimes on 01-25-2023 Estimated GFR (MDRD) Amer 64 mL/min >60 [facility] Comment on above: GFR Calc Estimated GFR (MDRD) Non-Af Amer 53 mL/min >60 [facility] Comment on above: Non- GFR Calc Prostate Specific Antigen Screen 2.05 ng/mL 0.00-4.00 [facility] Comment on above: This test was perfor med using the TPSA assay method for the[employer] chemistry system. Values obtained with differentassay methods cannot be used interchangably.When changing PSA assays in the course of monitoring apatient, additional sequential testing should be carriedout to confirm baseline values. Thyroid Stimulating Hormone (TSH) 1.42 uIU/mL 0.358-3.74 [facility] Serum or plasma albumin reta urement (mass/volume)Ordered By: Amina Jaimes on 01-25-2023 Albumin [Mass/Vol] 4.0 g/dL 3.2-5.0 [facility] Serum or plasma albumin/glob ulin mass ratioOrdered By: Amina Jaimes on 01-25-2023 Albumin/Globulin [Mass ratio] 1.4 {ratio} 0.9-2.4 [facility] Serum or plasma calcium reta urement (mass/volume)Ordered By: Amina Jaimes on 01-25-2023 Calcium [Mass/Vol] 8.8 mg/dL 8.5-10.1 [facility] Serum or plasma creatinine m easurement (mass/volume)Ordered By: Amina Jaimes on 01-25-2023 Creatinine [Mass/Vol] 1.42 mg/dL 0.70-1.30 [facility] Comment on above: The validity of the calculated GFR & GFRAA in patients over 70 years has not been determined. Clinical correlation is essential. Serum or plasma urea nitroge n measurement (mass/volume)Ordered By: Amina Jaimes on 01-25-2023 Urea nitrogen [Mass/Vol] 17 mg/dL 7-18 [facility] Thin prep Papanicolaou smear with manual screeningOrdered By: Amina Jaimes on 01-25-2023 Thin prep Papanicolaou smear with manual screening 24 U/L 15-37 [facility] Thin prep Papanicolaou smear with manual screening 7 5-15 [facility] Basophil percentageOrdered B y: Amina Jaimes on 10-08-2022 Bilirubin [Mass/Vol] 2.00 mg/dL 0.20-1.00 [facility] Comment on above: For patients on eltr ombopag therapy, use of [place] TBIL is not recommended. Chloride [Moles/Vol] 103 mmol/L 98-107 [facility] Glucose [Mass/Vol] 91 mg/dL 74-106 [facility] Potassium [Moles/Vol] 4.0 mmol/L 3.5-5.1 [facility] Protein [Mass/Vol] 7.0 g/dL 6.4-8.2 [facility] Sodium [Moles/Vol] 138 mmol/L 136-145 [facility] - Chemistry and C hemistry - challengeOrdered By: Amina Jaimes on 10-08-2022 ALP [Catalytic activity/Vol] 70 U/L 45-117 [facility] ALT [Catalytic activity/Vol] 31 U/L 16-61 [facility] CO2 [Moles/Vol] 28.0 mmol/L 21.0-32.0 [facility] Globulin (S) [Mass/Vol] 2.9 g/dL 2.2-4.2 [facility] Urea nitrogen/Creatinine [Mass ratio] 14.7 mg/mg 10-20 [facility] No Panel InformationOrdered By: Amina Jaimes on 10-08-2022 Estimated GFR (MDRD) Amer 64 mL/min >60 [facility] Comment on above: GFR Calc Estimated GFR (MDRD) Non-Af Amer 53 mL/min >60 [facility] Comment on above: Non- GFR Calc Serum or plasma albumin reta urement (mass/volume)Ordered By: Amina Jaimes on 10-08-2022 Albumin [Mass/Vol] 4.1 g/dL 3.2-5.0 [facility] Serum or plasma albumin/glob ulin mass ratioOrdered By: Amina Jaimes on 10-08-2022 Albumin/Globulin [Mass ratio] 1.4 {ratio} 0.9-2.4 [facility] Serum or plasma calcium reta urement (mass/volume)Ordered By: Amina Jaimes on 10-08-2022 Calcium [Mass/Vol] 8.6 mg/dL 8.5-10.1 [facility] Serum or plasma creatinine m easurement (mass/volume)Ordered By: Amina Jaimes on 10-08-2022 Creatinine [Mass/Vol] 1.43 mg/dL 0.70-1.30 [facility] Comment on above: The validity of the calculated GFR & GFRAA in patients over 70 years has not been determined. Clinical correlation is essential. Serum or plasma urea nitroge n measurement (mass/volume)Ordered By: Amina Jaimes on 10-08-2022 Urea nitrogen [Mass/Vol] 21 mg/dL 7-18 [facility] Serum or plasma uric acid me asurement (mass/volume)Ordered By: Amina Jaimes on 10-08-2022 Urate [Mass/Vol] 8.5 mg/dL 3.5-7.2 [facility] Comment on above: The drugs N-Acetylcy steine and Metamizole may falsely depress this assay. Thin prep Papanicolaou smear with manual screeningOrdered By: Amina Jaimes on 10-08-2022 Thin prep Papanicolaou smear with manual screening 20 U/L 15-37 [facility] Thin prep Papanicolaou smear with manual screening 7 5-15 [facility] CR Chest PA/LATon 07-13-2022 CR Chest PA/LAT Patient Name: ARTURO WHELAN Diagnostic Radiology ACCESSION EXAM DATE/TIME PROCEDURE ORDERING PROVIDER [id number] 07/13/2022 10:37 EDT CR Chest PA and LAT MD AZIZA, BERNARDA RAY CPT code 25215 Reason For Exam (CR Chest PA and LAT) Dyspnea Report INDICATION: 66-year-old; dyspnea; shortness of breath; mid chest pain. VIEWS: PA and lateral COMPARISON: 09/24/2012 FINDINGS: The trachea is midline. The cardiac silhouette is upper limits of normal. Biapical pleural thickening. No confluent consolidation. The costophrenic angles are sharp. Osseous structures appear intact. IMPRESSION: No radiographic acute cardiopulmonary process. Report Dictated on Final Dictated: 07/13/2022 5:15 pm Dictating Physician: MD GAONA JENNIFER R Signed Date and Time: 07/13/2022 5:17 pm Signed by: MD GAONA JENNIFER R Transcribed Date and Time: 07/13/2022 5:15 Normal [facility] Absolute lymphocyte counton 12-22-2021 Lymphocytes Auto (Unsp spec) [#/Vol] 1.33 10*3/uL 0.83-4.51 [facility] Work Phone: Basophil percentageon 2021 Basophils/100 WBC (Bld) 0.7 % 0-1 [facility] Work Phone: Bilirubin [Mass/Vol] 1.50 mg/dL 0.20-1.00 [facility] Work Phone: Comment on above: For patients on eltr ombopag therapy, use of Dim[place] TBIL is not recommended. Chloride [Moles/Vol] 104 mmol/L 98-107 [facility] Work Phone: Cholesterol [Mass/Vol] 198 mg/dL <200 [facility] Work Phone: Comment on above: <200 mg/dL Desirable 200-240 mg/dL Borderline >240 mg/dL High Risk Eosinophils/100 WBC (Bld) 2.2 % 0-5 [facility] Work Phone: Glucose [Mass/Vol] 122 mg/dL 74-106 [facility] Work Phone: Comment on above: Fasting Glucose resu lt from 100 to 125 mg/dL suggests IMPAIRED HOMEOSTASIS per A.D.A. criteria. Neutrophils (Bld) [#/Vol] 6.3 10*3/uL 2.0-7.7 [facility] Work Phone: Neutrophils/100 WBC (Bld) 74.0 % 47-70 [facility] Work Phone: Potassium [Moles/Vol] 4.6 mmol/L 3.5-5.1 [facility] Work Phone: Protein [Mass/Vol] 7.3 g/dL 6.4-8.2 [facility] Work Phone: Sodium [Moles/Vol] 138 mmol/L 136-145 [facility] Work Phone: Triglyceride [Mass/Vol] 185 mg/dL [facility] Work Phone: Comment on above: The drugs N-Acetylcy steine and Metamizole may falsely depress this assay.Serum Triglycerides Reference Interval Normal <150 mg/dL Borderline high 150 - 199 mg/dL High 200 - 499 mg/dL Very High > or = 500 mg/dL WBC (Bld) [#/Vol] 8.6 10*3/uL 4.4-11.0 [facility] Work Phone: Blood erythrocytes count (nu mber/volume)on 12-22-2021 RBC (Bld) [#/Vol] 5.68 10*6/uL 4.6-6.2 [facility] Work Phone: Blood hemoglobin measurement (mass/volume)on 12-22-2021 Hemoglobin (Bld) [Mass/Vol] 17.1 g/dL 13.0-16.5 [facility] Work Phone: Blood lymphocytes/100 leukoc yteson 12-22-2021 Lymphocytes/100 WBC (Bld) 15.6 % 19-41 [facility] Work Phone: Blood monocytes/100 leukocyt eson 12-22-2021 Monocytes/100 WBC (Bld) 7.3 % 0-10 [facility] Work Phone: Blood platelet mean volumeon 12-22-2021 Platelet mean volume (Bld) [Entitic vol] 11.5 fL 6.2-12.0 [facility] Work Phone: Determination of erythrocyte mean corpuscular volume (MCV)on 12-22-2021 MCV (RBC) [Entitic vol] 88.7 fL 80-94 [facility] Work Phone: Hematocrit Auto (Bld) [Volum e fraction]on 12-22-2021 Hematocrit (Bld) [Volume fraction] 50.4 % 40-54 [facility] Work Phone: Laboratory - Chemistry and C hemistry - challengeon 12-22-2021 ALP [Catalytic activity/Vol] 72 U/L 45-117 [facility] Work Phone: ALT [Catalytic activity/Vol] 29 U/L 16-61 [facility] Work Phone: CO2 [Moles/Vol] 30.0 mmol/L 21.0-32.0 [facility] Work Phone: Globulin (S) [Mass/Vol] 3.0 g/dL 2.2-4.2 [facility] Work Phone: Urea nitrogen/Creatinine [Mass ratio] 9.1 mg/mg 10-20 [facility] Work Phone: Laboratory - Hematology and Cell countson 12-22-2021 Erythrocyte distribution width (RBC) [Entitic vol] 45.9 fL 35.1-43.9 [facility] Work Phone: Erythrocyte distribution width (RBC) [Ratio] 14.2 % 11.6-14.6 [facility] Work Phone: Immature granulocytes/100 WBC (Bld) 0.200 % 0.0-0.9 [facility] Work Phone: Comment on above: IG% - Immature Granu locytes (promyelocytes, myelocytes and metamyelocytes) > 1% indicates that a LEFT SHIFT is Present. MCH (RBC) [Entitic mass] 30.1 pg 27.0-32.0 [facility] Work Phone: Nucleated RBC/100 WBC (Bld) [Ratio] 0 % 0-5 [facility] Work Phone: MCHC Auto (RBC) [Mass/Vol]on 12-22-2021 MCHC (RBC) [Mass/Vol] 33.9 g/dL 32-36 [facility] Work Phone: No Panel Informationon 12-22 C-Reactive Protein High Sensitivity 1.80 mg/L [facility] Work Phone: Comment on above: Low Relative Risk of CVD <1.0 mg/L Average Relative Risk of CVD 1.0 - 3.0 mg/L High Relative Risk of CVD >3.0 mg/L Estimated GFR (MDRD) Amer 64 mL/min >60 [facility] Work Phone: Comment on above: GFR Calc Estimated GFR (MDRD) Non-Af Amer 53 mL/min >60 [facility] Work Phone: Comment on above: Non- GFR Calc Prostate Specific Antigen Screen 1.30 ng/mL 0.00-4.00 [facility] Work Phone: Comment on above: This test was perfor med using the TPSA assay method for [employer] [facility] chemistry system. Values obtained with differentassay methods cannot be used interchangably.When changing PSA assays in the course of monitoring apatient, additional sequential testing should be carriedout to confirm baseline values. Thyroid Stimulating Hormone (TSH) 2.92 uIU/mL 0.358-3.74 [facility] Work Phone: Platelets bldon 12-22-2021 Platelets (Bld) [#/Vol] 186 10*3/uL 150-450 [facility] Work Phone: Serum or plasma albumin reta urement (mass/volume)on 12-22-2021 Albumin [Mass/Vol] 4.3 g/dL 3.2-5.0 [facility] Work Phone: Serum or plasma albumin/glob ulin mass ratioon 12-22-2021 Albumin/Globulin [Mass ratio] 1.4 {ratio} 0.9-2.4 [facility] Work Phone: Serum or plasma calcium reta urement (mass/volume)on 12-22-2021 Calcium [Mass/Vol] 8.6 mg/dL 8.5-10.1 [facility] Work Phone: Serum or plasma cholesterol in HDL measurement (mass/volume)on 12-22-2021 Cholesterol in HDL [Mass/Vol] 32 mg/dL [facility] Work Phone: Comment on above: The drugs N-Acetylcy steine and Metamizole may falsely depress this assay. Reference Range HDL <40 mg/dL Low HDL Cholesterol HDL >or= 60 mg/dL High HDL Cholesterol Serum or plasma cholesterol in VLDL measurement (mass/volume)on 12-22-2021 Cholesterol in VLDL [Mass/Vol] 37 mg/dL 5-40 [facility] Work Phone: Serum or plasma creatinine m easurement (mass/volume)on 12-22-2021 Creatinine [Mass/Vol] 1.43 mg/dL 0.70-1.30 [facility] Work Phone: Comment on above: The validity of the calculated GFR & GFRAA in patients over 70 years has not been determined. Clinical correlation is essential. Serum or plasma low density lipoprotein (LDL) cholesterol measurement (mass/volume)on 12-22-2021 Cholesterol in LDL [Mass/Vol] 129 mg/dL 0-130 [facility] Work Phone: Serum or plasma urea nitroge n measurement (mass/volume)on 12-22-2021 Urea nitrogen [Mass/Vol] 13 mg/dL 7-18 [facility] Work Phone: Serum or plasma uric acid me asurement (mass/volume)on 12-22-2021 Urate [Mass/Vol] 6.6 mg/dL 3.5-7.2 [facility] Work Phone: Comment on above: The drugs N-Acetylcy steine and Metamizole may falsely depress this assay. Thin prep Papanicolaou smear with manual screeningon 12-22-2021 Thin prep Papanicolaou smear with manual screening 24 U/L 15-37 [facility] Work Phone: Thin prep Papanicolaou smear with manual screening 4 5-15 [facility] Work Phone: Absolute lymphocyte counton 09-04-2021 Lymphocytes Auto (Unsp spec) [#/Vol] 1.13 10*3/uL 0.83-4.51 [facility] Work Phone: Basophil percentageon 2020 Eosinophils/100 WBC (Bld) 1.9 % 0-5 [facility] Work Phone: Neutrophils (Bld) [#/Vol] 7.9 10*3/uL 2.0-7.7 [facility] Work Phone: WBC (Bld) [#/Vol] 10.1 10*3/uL 4.4-11.0 [facility] Work Phone: Blood erythrocytes count (nu mber/volume)on 09-04-2021 RBC (Bld) [#/Vol] 5.58 10*6/uL 4.6-6.2 [facility] Work Phone: Blood hemoglobin measurement (mass/volume)on 09-04-2021 Hemoglobin (Bld) [Mass/Vol] 17.2 g/dL 13.0-16.5 [facility] Work Phone: Blood lymphocytes/100 leukoc yteson 09-04-2021 Lymphocytes/100 WBC (Bld) 11.2 % 19-41 [facility] Work Phone: Blood monocytes/100 leukocyt eson 09-04-2021 Monocytes/100 WBC (Bld) 7.6 % 0-10 [facility] Work Phone: Blood platelet mean volumeon 09-04-2021 Platelet mean volume (Bld) [Entitic vol] 11.3 fL 6.2-12.0 [facility] Work Phone: Determination of erythrocyte mean corpuscular volume (MCV)on 09-04-2021 MCV (RBC) [Entitic vol] 90.9 fL 80-94 [facility] Work Phone: Hematocrit Auto (Bld) [Volum e fraction]on 09-04-2021 Hematocrit (Bld) [Volume fraction] 50.7 % 40-54 [facility] Work Phone: Laboratory - Hematology and Cell countson 09-04-2021 Basophils/100 WBC (Unsp spec) 0.9 % 0-1 [facility] Work Phone: Erythrocyte distribution width (RBC) [Entitic vol] 46.4 fL 35.1-43.9 [facility] Work Phone: Erythrocyte distribution width (RBC) [Ratio] 13.7 % 11.6-14.6 [facility] Work Phone: Immature granulocytes/100 WBC (Bld) 0.300 % 0.0-0.9 [facility] [facility] [place] Work Phone: Comment on above: IG% - Immature Granu locytes (promyelocytes, myelocytes and metamyelocytes) > 1% indicates that a LEFT SHIFT is Present. MCH (RBC) [Entitic mass] 30.8 pg 27.0-32.0 [facility] [place] Work Phone: Neutrophils/100 WBC (Bld) 78.1 % 47-70 [facility] [place] Work Phone: Nucleated RBC/100 WBC (Bld) [Ratio] 0 % 0-5 [facility] [place] Work Phone: MCHC Auto (RBC) [Mass/Vol]on 09-04-2021 MCHC (RBC) [Mass/Vol] 33.9 g/dL 32-36 [facility] Work Phone: No Panel Informationon 09-04 Thyroid Stimulating Hormone (TSH) 1.19 uIU/mL 0.358-3.74 [facility] [place] Work Phone: Platelets bldon 09-04-2021 Platelets (Bld) [#/Vol] 207 10*3/uL 150-450 [facility] [place] Work Phone: Serum or plasma uric acid me asurement (mass/volume)on 09-04-2021 Urate [Mass/Vol] 8.0 mg/dL 3.5-7.2 [facility] [place] Work Phone: Comment on above: The drugs N-Acetylcy steine and Metamizole may falsely depress this assay. CBC (INCLUDES DIFF/PLT)on Basophils (Bld) [#/Vol] 0.083 10*3/uL Normal 0-200 [facility] Comment on above: Performed By: #### 6 399, [id number] #### [facility] [address], [address] [place], [place] [id number] Grand Jury Deputy Sheriff: Wero Conn MD Basophils/100 WBC (Bld) 1.0 % Normal [facility] Comment on above: Performed By: #### 6 399, 07928 #### [facility] [place] [id number] Grand Jury Deputy Sheriff: Wero Conn MD Eosinophils (Bld) [#/Vol] 0.216 10*3/uL Normal 15-500 [facility] Comment on above: Performed By: #### 6 399, 34696 #### [facility] of [place] [address] Grand Jury Deputy Sheriff: Wero Conn MD Eosinophils/100 WBC (Bld) 2.6 % Normal [facility] Comment on above: Performed By: #### 6 399, 63149 #### [facility] of [place] [address] Grand Jury Deputy Sheriff: Wero Conn MD Erythrocyte distribution width (RBC) [Ratio] 14.4 % Normal 11.0-15.0 [facility] Comment on above: Performed By: #### 6 399, 78810 #### [facility] of [place] [address] Grand Jury Deputy Sheriff: Wero Conn MD Hematocrit (Bld) [Volume fraction] 49.8 % Normal 38.5-50.0 [facility] Comment on above: Performed By: #### 6 399, 13441 #### [facility] of [place] [address] Grand Jury Deputy Sheriff: Wero Conn MD Hemoglobin (Bld) [Mass/Vol] 17.8 g/dL High 13.2-17.1 [facility] Comment on above: Performed By: #### 6 399, 83705 #### [facility] of [place] [address] Grand Jury Deputy Sheriff: Wero Conn MD Lymphocytes (Bld) [#/Vol] 1.486 10*3/uL Normal 850-3900 [facility] Comment on above: Performed By: #### 6 399, 30143 #### [facility] of [place] [address] Grand Jury Deputy Sheriff: Wero Conn MD Lymphocytes/100 WBC (Bld) 17.9 % Normal [facility] Comment on above: Performed By: #### 6 399, 38619 #### [facility] of [place] [address] Grand Jury Deputy Sheriff: Wero Conn MD MCH (RBC) [Entitic mass] 31.6 pg Normal 27.0-33.0 [facility] Comment on above: Performed By: #### 6 399, 41516 #### [facility] of [address], [address] [place] [address] Grand Jury Deputy Sheriff: Wero Conn MD MCHC (RBC) [Mass/Vol] 35.7 g/dL Normal 32.0-36.[address] [facility] Comment on above: Performed By: #### 6 399, 96122 #### [facility] of [address], [address] [place] [address] Grand Jury Deputy Sheriff: Wero Conn MD MCV (RBC) [Entitic vol] 88.5 fL Normal 80.0-100.0 [facility] Comment on above: Performed By: #### 6 399, 96106 #### [facility] of [address], [address] [place] [address] Grand Jury Deputy Sheriff: Wero Conn MD Monocytes (Bld) [#/Vol] 0.855 10*3/uL Normal 200-950 [facility] Comment on above: Performed By: #### 6 399, 46878 #### [facility] of [address], [address] [place] [address] Grand Jury Deputy Sheriff: Wero Conn MD Monocytes/100 WBC (Bld) 10.3 % Normal [facility] Comment on above: Performed By: #### 6 399, 92456 #### [facility] of [address], [address] [place] [address] Grand Jury Deputy Sheriff: Wero Conn MD Neutrophils (Bld) [#/Vol] 5.661 10*3/uL Normal 9412-5792 [facility] Comment on above: Performed By: #### 6 399, 27923 #### [facility] of [place] [address] Grand Jury Deputy Sheriff: Wero Conn MD Neutrophils/100 WBC (Bld) 68.2 % Normal [facility] Comment on above: Performed By: #### 6 399, 35122 #### [facility] of [address], [address] [place] [address] Grand Jury Deputy Sheriff: Wero Conn MD Platelet mean volume (Bld) [Entitic vol] 11.4 fL Normal 7.5-12.5 [facility] Comment on above: Performed By: #### 6 399, 54011 #### [facility] of [address], [address] [place] [address] Grand Jury Deputy Sheriff: Wero Conn MD Platelets (Bld) [#/Vol] 198 10*3/uL Normal 140-400 [facility] Comment on above: Performed By: #### 6 399, 20026 #### [facility] of [address], [address] [place] [address] Grand Jury Deputy Sheriff: Wero Conn MD RBC (Bld) [#/Vol] 5.63 10*6/uL Normal 4.20-5.80 [facility] Comment on above: Performed By: #### 6 399, 95492 #### [facility] of [place] [address] Grand Jury Deputy Sheriff: Wero Conn MD WBC (Bld) [#/Vol] 8.3 10*3/uL Normal 3.8-10.8 [facility] Comment on above: Performed By: #### 6 399, 19658 #### [facility] of [place] [address] Grand Jury Deputy Sheriff: Wero Conn MD [facility] METABOLIC [facility] 01-15-2021 Albumin [Mass/Vol] 4.9 g/dL Normal 3.6-5.1 [facility] Comment on above: Order Comment: FASTI NG:NO FASTING: NO Performed By: #### 6 399, 19209 #### [facility] of [place] [address] Grand Jury Deputy Sheriff: Wero Conn MD Albumin/Globulin [Mass ratio] 2.7 {ratio} High 1.0-2.5 [facility] Comment on above: Order Comment: FASTI NG:NO FASTING: NO Performed By: #### 6 399, 52876 #### [facility] of [address], [address] [place] [address] Grand Jury Deputy Sheriff: Wero Conn MD ALP [Catalytic activity/Vol] 61 U/L Normal 35-144 [facility] Comment on above: Order Comment: FASTI NG:NO FASTING: NO Performed By: #### 6 399, 67787 #### [facility] [address], [address] [place] [address] Grand Jury Deputy Sheriff: Wero Conn MD ALT [Catalytic activity/Vol] 26 U/L Normal 9-46 [facility] Comment on above: Order Comment: FASTI NG:NO FASTING: NO Performed By: #### 6 399, 16699 #### [facility] [place] [address] Grand Jury Deputy Sheriff: Wero Conn MD AST [Catalytic activity/Vol] 23 U/L Normal 10-35 [facility] Comment on above: Order Comment: FASTI NG:NO FASTING: NO Performed By: #### 6 399, 54877 #### [facility] [place] [address] Grand Jury Deputy Sheriff: Wero Conn MD Bilirubin [Mass/Vol] 2.0 mg/dL High 0.2-1.2 [facility] Comment on above: Order Comment: FASTI NG:NO FASTING: NO Performed By: #### 6 399, 62089 #### [facility] [place] [address] Grand Jury Deputy Sheriff: Wero Conn MD Calcium [Mass/Vol] 9.1 mg/dL Normal 8.6-10.3 [facility] Comment on above: Order Comment: FASTI NG:NO FASTING: NO Performed By: #### 6 399, 66158 #### [facility] [place] [address] Grand Jury Deputy Sheriff: Wero Conn MD Chloride [Moles/Vol] 102 mmol/L Normal 98-110 [facility] Comment on above: Order Comment: FASTI NG:NO FASTING: NO Performed By: #### 6 399, 89435 #### [facility] [address], [address] [place] [address] Grand Jury Deputy Sheriff: Wero Conn MD CO2 [Moles/Vol] 30 mmol/L Normal 20-32 [facility] Comment on above: Order Comment: FASTI NG:NO FASTING: NO Performed By: #### 6 399, 36762 #### [facility] [address], [address] [place] [address] Grand Jury Deputy Sheriff: Wero Conn MD Creatinine [Mass/Vol] 1.30 mg/dL High 0.70-1.[address] [facility] Comment on above: Order Comment: FASTI NG:NO FASTING: NO Result Comment: For patients >49 years of age, the reference limit for Creatinine is approximately 13% higher for people identified as -Emirati. Performed By: #### 6 399, 24702 #### [facility] [address], [address] [place] [address] Grand Jury Deputy Sheriff: Wero Conn MD eGFR NON-AFR. TRISTANIAN 58 mL/min/1.73m2 Low > OR = 60 [facility] Comment on above: Order Comment: FASTI NG:NO FASTING: NO Performed By: #### 6 399, 89566 #### [facility] [address], [address] [place] [address] Grand Jury Deputy Sheriff: Wero Conn MD GFR/1.73 sq M.predicted among blacks MDRD (S/P/Bld) [Vol rate/Area] 67 mL/min/{1.73_m2} Normal > OR = 60 [facility] Comment on above: Order Comment: FASTI NG:NO FASTING: NO Performed By: #### 6 399, 02329 #### [facility] [address], [address] [place] [address] Grand Jury Deputy Sheriff: Wero Conn MD Globulin (S) [Mass/Vol] 1.8 g/dL Low 1.9-3.7 [facility] Comment on above: Order Comment: FASTI NG:NO FASTING: NO Performed By: #### 6 399, 11925 #### [facility] [address], [address] [place] [address] Grand Jury Deputy Sheriff: Wero Conn MD Glucose [Mass/Vol] 74 mg/dL Normal 65-139 [facility] Comment on above: Order Comment: FASTI NG:NO FASTING: NO Result Comment: Non-fasting reference interval Performed By: #### 6 399, 37089 #### [facility] [address], [address] [place] [address] Grand Jury Deputy Sheriff: Wero Conn MD Potassium [Moles/Vol] 4.2 mmol/L Normal 3.5-5.3 [facility] Comment on above: Order Comment: FASTI NG:NO FASTING: NO Performed By: #### 6 399, 88170 #### [facility] [place] [address] Grand Jury Deputy Sheriff: Wero Conn MD Protein [Mass/Vol] 6.7 g/dL Normal 6.1-8.1 [facility] Comment on above: Order Comment: FASTI NG:NO FASTING: NO Performed By: #### 6 399, 59972 #### [facility] [address], [address] [place] [address] Grand Jury Deputy Sheriff: Wero Conn MD Sodium [Moles/Vol] 140 mmol/L Normal 135-146 [facility] Comment on above: Order Comment: FASTI NG:NO FASTING: NO Performed By: #### 6 399, 76351 #### [facility] [place] [address] Grand Jury Deputy Sheriff: Wero Conn MD Urea nitrogen [Mass/Vol] 17 mg/dL Normal 7-25 [facility] Comment on above: Order Comment: FASTI NG:NO FASTING: NO Performed By: #### 6 399, 43651 #### [facility] [place] [address] Grand Jury Deputy Sheriff: Wero Conn MD Urea nitrogen/Creatinine [Mass ratio] 13 mg/mg Normal 6-22 [facility] Comment on above: Order Comment: FASTI NG:NO FASTING: NO Performed By: #### 6 399, 48432 #### [facility] [address], [address] [place] [address] Grand Jury Deputy Sheriff: Wero Conn MD TSHon 01-15-2021 TSH Qn 2.91 m[IU]/L Normal 0.40-4.50 [facility] Comment on above: Performed By: #### 6 399, 37135 #### [facility] [address] , [address] Grand Jury Deputy Sheriff: Wero Conn MD NURSING PROGon 09-14-2018 Protein mass conc HNO ID: [id number]: ISABELLA Bates Rnervice: NursingAuthor Type: Registered NurseType: Nursing Progress NoteFiled: 09/14/2018 10:52 AMNote Text:[id number] Received from pacu No c/o pain Light diet to [id number] Iv removed Discharge instructions reviewed with pt and [id number] Discharged by wheelchair [facility] Protein mass conc HNO ID: [id number]: ISABELLA Hood Rnervice: (none)Author Type: Registered NurseType: Nursing Progress NoteFiled: 09/14/2018 8:11 AMNote Text:PRE OP LEARNING ASSESSMENTPROCEDURE/ROSANNA ERLINDA:EGDREADINESS TO LEARNCOGNITIVE ABILITY: Alert and orientedMOTIVATION TO LEARN: InterestedFAMILY SUPPORT: High - Very involved in pt carePATIENT LEARNS BEST BY: Individual InstructionVerbal InstructionFACTORS AFFECTING LEARNING: NonePHYSICAL LIMITATIONS AFFECTING LEARNING: NoneElectronically Signed By: Lena Barber RN, BSN [facility] PT EDon 09-14-2018 PT ED HNO ID: [id number]: ISABELLA Bates Rnervice: NursingAuthor Type: Registered NurseType: Patient EducationFiled: 09/14/2018 10:51 AMNote Text:POST OP LEARNING RESPONSEINSTRUCTION PROVIDED TO: Patient and Family memberMETHOD OF INSTRUCTION: Verbal instructionPATIENT / FAMILY RESPONSE: Information received as demonstrated byinterest and questionsFOLLOW-UP PLAN: Patient instructed to call with any further issuesSUPPLEMENTAL MATERIAL: Post op discharge instructionsREFERRAL (RECOMMENDATION): NoneElectronically Signed By: Francie Taylor RN In Department: [facility] ENDOSCOPY Normal [facility] SURGICAL PATHOLOGYon 018 SURGICAL PATHOLOGY [facility]: [id number] Physician: Jim Elizondo M.D. FINAL DIAGNOSIS1. Stomach, biopsy (A) - Gastric oxyntic-type mucosa with no pathologicdiagnostic abnormality; see comment.2. Esophagogastric junction, irregular, biopsy (B) - Reactive squamousmucosa with parakeratosis and focal acute inflammation admixed withactively inflamed gastric mucosa compatible with histologic features ofreflux esophagitis; negative for intestinal metaplasia and dysplasia.SS/kr 09/15/2018 COMMENT1. No microorganisms morphologically compatible with H. pylori areidentified on routine H&E stained sections. Baudilio Powers M.D.(Electronic Signature) SPECIMEN SUBMITTEDA: GASTRIC, BIOPSY, R/O H. PYLORI B: IRREGULAR ESOPHAGOGASTRIC JUNCTION, BIOPSY, R/O BROWN'S CLINICAL DATAR/O H PYLORI, R/O BROWN'S GROSS DESCRIPTIONA. Received in formalin are three pieces of wadsworth, soft tissue aggregating to0.7 x 0.3 x 0.2 cm. Totally submitted in one cassette.B. Received in formalin are three pieces of wadsworth, soft tissue aggregating to1.4 x 0.3 x 0.3 cm. Totally submitted in one cassette.Gross examination performed at [facility], [address] [place] [id number] 09/14/2018 5:44:35 PMPatient ID #: [id number] of Report: 09/15/2018Date of Procedure: 09/14/2018Date of Receipt: 09/14/2018Submitted by: Jim Elizondo M.D.Location: MEENDDiagnostic interpretation performed at [facility], [address] [place] [address]. [facility] Comment on above: Performed By: #### P ATHS ####[facility] [address] [place], [place] [id number] STRESS TEST EXERCISEon 06-08 Protein mass conc NAME : LILIA SNOWHPID : [id number] : 1955 Gender : MaleRace : ORD : [id number] Procedure Date : Jun 08 2018 12:35:54Edit Date : Jun 09 2018 08:49:06 Protocol Name : ORTEGA Time In Exercise Phase : 00:09:00 Max. Systolic BP : 196 mmHgMax Diastolic BP : 94 mmHgMax Heart Rate : 146 BPMMax Predicted Heart Rate : 159 BPMRecovery ECG Response (OLD) : Reason For Termination : Target Heart Rate Achieved Test Reason : CAD Risk Location :RS Overread By : Rosa FARLEY M.D. By : Leah Pereiraferred By : FABIAN MANSFIELDAcquired by : VERNA OLIVER [facility] Shawn 06-07-2018 CNPN Telephone ([facility]ME) SONY GONZALESCHRISTINAARTURO Thanh ([id number]) 1955 MDate Time Provider Department06/07/18 MARY DHILLON (RN) [facility]ME During your visit today, we recorded the following information about you:Mary Dhillon RN, RN 06/07/2018 1:49 PM SignedSpoke with patient regarding reminder for stress test tomorrow and giveninstructionsAllerg ies As of Date: 06/07/2018(No Known Allergies)Date Reviewed: 05/27/2018Reviewed by: Fabian Mansfield - Fully AssessedReason for Visit: Reminder Call [[id number]]Prescriptions as of 06/07/2018 Sig: LEVOTHYROXINE 88 MCG TABLET Take 88 mcg by mouth daily be* TYLENOL ORAL Take by mouth as needed.Problem List As Of Date 06/07/2018 Noted Resolved 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 Shortness of breath [R06.02] INVALID FOR* Status:Closed by MARY DHILLON on 06/07/18 [facility] MRI STERNUM WO/W IVCONon MRI STERNUM WO/W IVCON * * *Final Report* * *DATE OF EXAM: Nov 30 2017 5:05PM MDM 0250 - MRI STERNUM WO/W IVCON / REASON: R07.89-Other chest pain * * * * Physician Interpretation * * * * MRI STERNUM WITHOUT AND WITH CONTRASTHistory: Other chest pain . History of injury 4 years ago with persistent sternal pain.Technique: Multiplanar multisequence imaging of the sternum was performed before and after intravenous contrast administration.Contrast Media 1: IV administration of 20 ml of DotaremComparison: CT chest 11/06/2017RESULT:Bone marrow: No evidence of fracture, bone bruise, or pathologic marrow replacing lesion.Muscles: Normal bulk and signal intensity of the included pectoralis musculature.Other: Tiny marginal osteophytes and subchondral cysts of the included right sternoclavicular joint. Tiny osteophytes of the left sternoclavicular joint. No sternoclavicular joint effusion.A 1 cm left hepatic lobe cyst is incidentally noted. 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 0539 - CT CHEST W IVCON / REASON: multiple diagnoses * * * * Physician Interpretation * * * * EXAMINATION: CHEST CT WITH CONTRAST: 5-64-16Mjteyedffg: 62-year-old male with requisition stating solitary pulmonary nodule. Shortness of breath. Chest pain. Sternal pain.Technique: Spiral CT acquisition of the chest from the thoracic inlet to the upper abdomen following IV contrast.M: [id number]: 50 mL Omnipaque 300 IVCT Dose-Length Product: 490 mGy*cmCT Dose Reduction Employed: mAs-kVp adjusted based on patient size-ageCOMPARISON:Two view chest x-ray: 08-30-16CT chest without IV contrast: 04-17-16, 93-37-10ICQWVJT:Limitat ions: None.Lines, tubes, and devices: None.Lung parenchyma and pleura: Minimal atelectasis within posterior lungs. Minimal parenchymal scarring within bilateral lung apices.A non-calcified nodule is again noted within lateral mid right lun mm (2:95).A non-calcified nodule is again noted within lateral left lun mm. (2: 1:30).They are stable since CT chest from 2013, consistent with benign findings.No new or enlarging lung parenchymal mass.No pleural fluid or thickening.Thoracic inlet, heart, and mediastinum: Heart not enlarged. No significant pericardial fluid. Minimal vascular calcifications. No aneurysm of thoracic aorta. 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 No enlarged lymph nodes. Healed bone mild degenerative change of spine. No focal skeletal abnormality.Bones/soft tissues: Minimal degenerative change of spine. No focal skeletal abnormality.Upper abdomen: Colonic diverticuli.Within lateral segment of left lobe liver, an 8 mm round hypodense lesion is stable since CT from 2013, consistent with benign finding (2:66).No significant change.IMPRESSION:1. No significant change.2. Two small 5 mm non-calcified nodules within bilateral lungs are stable since 2013, consistent with benign findings.3. Within lateral segment of left lobe of liver, an 8 mm hypodense lesion is stable since CT from 2013, consistent with benign finding.Transcriptionis t: PSCB Transcribe Date/Time: Nov 07 2017 12:28PDictated by : HALI NAVA MDThishira examination was interpreted and the report reviewed and electronically signed by: HALI NAVA MD on Nov 07 2017 12:46PM [id number] [facility] SURGICAL PATHOLOGYon 017 SURGICAL PATHOLOGY Specimen #: [id number] Physician: REYNALDO VAUGHN MD FINAL DIAGNOSISA. Skin,right chest, excision - Epidermal inclusion cyst.YADI/TITUS/princess 08/10/2017 Nayana Mccormick M.D., Ph.D.(Electronic Signature) SPECIMEN SUBMITTEDA: SKIN,RIGHT CHEST, EXCISION CLINICAL DATAA. CYST, EXCISEDGROSS DESCRIPTIONA. Received in formalin are multiple segments of irregular brownish whitepasty tissue aggregating to 3.0 x 0.9 x 0.3 cm. The specimen does resemblea cyst, is ruptured, skin appears to be present. The specimen is sectionedto reveal a white pasty cut surface. Electrician sections are submittedin one cassette.Gross examination performed at [facility], [address] [place] [address] [id number] 08/10/2017 2:14:35 AMPatient ID #: [id number] Report: 08/10/2017Date of Procedure: 08/09/2017Date of Receipt: 08/09/2017Submitted by: REYNALDO VAUGHN MDLocation: Diagnostic interpretation performed at [facility], [address] [place] [id number]. Normal [facility] Comment on above: Performed By: #### S ####See report for performing lab information. Vital Signs Date Time Vital Sign Value Performing Clinician Facility 05-25-2025 09:31-0400 Body height 191.77 cm Amina Jaimes BUSINESS DEVELOPMENT EXECUTIVE-C Work Phone: [facility] [place] 05-25-2025 09:31-0400 Body mass index (BMI) [Ratio] 30.1 kg/m2 Amina Jaimes BUSINESS DEVELOPMENT EXECUTIVE-C Work Phone: [facility] [place] 05-25-2025 09:31-0400 Body weight 110.67 kg Amina Jaimes BUSINESS DEVELOPMENT EXECUTIVE-C Work Phone: [facility] [place] 01-29-2025 17:05-0400 Body mass index (BMI) [Ratio] 30.8 kg/m2 Amina Jaimes BUSINESS DEVELOPMENT EXECUTIVE-C Work Phone: [facility] [place] 01-29-2025 17:05-0400 Body temperature 98.1 [degF] Amina Jaimes BUSINESS DEVELOPMENT EXECUTIVE-C Work Phone: [facility] [place] 01-29-2025 17:05-0400 Body weight 113.39 kg Aminajamar BoldenJaimes BUSINESS DEVELOPMENT EXECUTIVE-C Work Phone: [facility] [place] 01-29-2025 17:05-0400 Diastolic blood pressure 80 mm[Hg] Amina Jaimes BUSINESS DEVELOPMENT EXECUTIVE-C Work Phone: [facility] [place] 01-29-2025 17:05-0400 Heart rate 70 /min Amina Jaimes BUSINESS DEVELOPMENT EXECUTIVE-C Work Phone: [facility] [place] 01-29-2025 17:05-0400 Respiratory rate 18 /min Amina Jaimes BUSINESS DEVELOPMENT EXECUTIVE-C Work Phone: [facility] [place] 01-29-2025 17:05-0400 SaO2% (BldA) [Mass fraction] 98 % Amina Jaimes BUSINESS DEVELOPMENT EXECUTIVE-C Work Phone: [facility] 01-29-2025 17:05-0400 Systolic blood pressure 128 mm[Hg] Amina ANTONIO Work Phone: [facility] 01-07-2024 16:27-0400 Body height 190.5 cm [facility] 01-07-2024 16:27-0400 Body mass index (BMI) [Ratio] 32 kg/m2 [facility] 01-07-2024 16:27-0400 Body temperature 98.1 [degF] [facility] 01-07-2024 16:27-0400 Body weight 116.11 kg [facility] 01-07-2024 16:27-0400 Diastolic blood pressure 80 mm[Hg] [facility] 01-07-2024 16:27-0400 Heart rate 64 /min [facility] 01-07-2024 16:27-0400 Respiratory rate 18 /min [facility] 01-07-2024 16:27-0400 SaO2% (BldA) [Mass fraction] 95 % [facility] 01-07-2024 16:27-0400 Systolic blood pressure 138 mm[Hg] [facility] 11-23-2023 17:59-0500 Body mass index (BMI) [Ratio] 31.8 kg/m2 [facility] 11-23-2023 17:59-0500 Body temperature 98.1 [degF] [facility] 11-23-2023 17:59-0500 Body weight 115.66 kg [facility] 11-23-2023 17:59-0500 Diastolic blood pressure 88 mm[Hg] [facility] 11-23-2023 17:59-0500 Heart rate 62 /min [facility] 11-23-2023 17:59-0500 Respiratory rate 18 /min [facility] 11-23-2023 17:59-0500 SaO2% (BldA) [Mass fraction] 94 % [facility] 11-23-2023 17:59-0500 Systolic blood pressure 134 mm[Hg] [facility] 01-25-2023 17:37-0400 Body height 190.5 cm [facility] 12-24-2022 17:52-0400 Body mass index (BMI) [Ratio] 32.5 kg/m2 [facility] 12-24-2022 17:52-0400 Body temperature 98.1 [degF] [facility] 12-24-2022 17:52-0400 Body weight 117.93 kg [facility] 12-24-2022 17:52-0400 Diastolic blood pressure 90 mm[Hg] [facility] 12-24-2022 17:52-0400 Heart rate 105 /min [facility] 12-24-2022 17:52-0400 Respiratory rate 18 /min [facility] 12-24-2022 17:52-0400 SaO2% (BldA) [Mass fraction] 96 % [facility] 12-24-2022 17:52-0400 Systolic blood pressure 158 mm[Hg] [facility] 10-08-2022 18:08-0500 Body height 190.5 cm [facility] 10-08-2022 18:08-0500 Body mass index (BMI) [Ratio] 31.5 kg/m2 [facility] 10-08-2022 18:08-0500 Body temperature 98.2 [degF] [facility] 10-08-2022 18:08-0500 Body weight 114.3 kg [facility] 10-08-2022 18:08-0500 Diastolic blood pressure 90 mm[Hg] [facility] 10-08-2022 18:08-0500 Heart rate 68 /min [facility] 10-08-2022 18:08-0500 Respiratory rate 18 /min [facility] 10-08-2022 18:08-0500 SaO2% (BldA) [Mass fraction] 95 % [facility] 10-08-2022 18:08-0500 Systolic blood pressure 150 mm[Hg] [facility] 07-22-2022 13:56-0400 Body mass index (BMI) [Ratio] 30.31 kg/m2 Bernarda Moses MD Work Phone: [facility] 07-22-2022 13:56-0400 Body temperature 97.59 [degF] Bernarda Moses MD Work Phone: [facility] 07-22-2022 13:56-0400 Body weight 112.95 kg Bernarda Moses MD Work Phone: [facility] 07-22-2022 13:56-0400 Diastolic blood pressure 89 mm[Hg] Bernarda Moses MD Work Phone: [facility] 07-22-2022 13:56-0400 Heart rate 76 /min Bernarda Moses MD Work Phone: [employer] 07-22-2022 13:56-0400 Respiratory rate 16 /min Bernarda Moses MD Work Phone: [facility] 07-22-2022 13:56-0400 Systolic blood pressure 139 mm[Hg] Bernarda Moses MD Work Phone: [facility] 06-24-2022 11:06-0400 Body mass index (BMI) [Ratio] 30.19 kg/m2 Brenarda Moses MD Work Phone: [facility] 06-24-2022 11:06-0400 Body temperature 97.3 [degF] Bernarda Moses MD Work Phone: [facility] 06-24-2022 11:06-0400 Body weight 112.49 kg Bernarda Moses MD Work Phone: [facility] 06-24-2022 11:06-0400 Diastolic blood pressure 95 mm[Hg] Bernarda Moses MD Work Phone: [facility] 06-24-2022 11:06-0400 Heart rate 92 /min Bernarda Moses MD Work Phone: [facility] 06-24-2022 11:06-0400 Respiratory rate 18 /min Bernarda Moses MD Work Phone: [facility] 06-24-2022 11:06-0400 Systolic blood pressure 129 mm[Hg] Bernarda Moses MD Work Phone: [facility] 12-22-2021 16:12-0400 Body height 190.5 cm [facility] Work Phone: 12-22-2021 16:12-0400 Body mass index (BMI) [Ratio] 32.2 kg/m2 [facility] Work Phone: 12-22-2021 16:12-0400 Body temperature 97.9 [degF] [facility] Work Phone: 12-22-2021 16:12-0400 Body weight 117.02 kg [facility] Work Phone: 12-22-2021 16:12-0400 Diastolic blood pressure 94 mm[Hg] [facility] Work Phone: 12-22-2021 16:12-0400 Heart rate 79 /min [facility] Work Phone: 12-22-2021 16:12-0400 Respiratory rate 18 /min [facility] Work Phone: 12-22-2021 16:12-0400 SaO2% (BldA) [Mass fraction] 96 % [facility] Work Phone: 12-22-2021 16:12-0400 Systolic blood pressure 138 mm[Hg] [facility] Work Phone: 09-04-2021 15:08-0500 Body mass index (BMI) [Ratio] 31.7 kg/m2 [facility] Work Phone: 09-04-2021 15:08-0500 Body temperature 98.2 [degF] [facility] Work Phone: 09-04-2021 15:08-0500 Body weight 115.21 kg [facility] Work Phone: 09-04-2021 15:08-0500 Diastolic blood pressure 70 mm[Hg] [facility] Work Phone: 09-04-2021 15:08-0500 Heart rate 89 /min [facility] Work Phone: 09-04-2021 15:08-0500 Respiratory rate 18 /min [facility] Work Phone: 09-04-2021 15:08-0500 SaO2% (BldA) [Mass fraction] 95 % [facility] Work Phone: 09-04-2021 15:08-0500 Systolic blood pressure 120 mm[Hg] [facility] Work Phone: 09-08-2018 14:00-0500 Body weight Measured MARYAM MEDINA [facility] ital Encounters Encounter Date Encounter Type Care Provider Facility Start: 05-25-2025 End: 05-25-[address] Yobani Garcia MD -[facility] Start: 05-25-2025 End: 05-25-2025 ambulatory Amina Jaimes BUSINESS DEVELOPMENT EXECUTIVE-C Work Phone: -[facility] Start: 02-05-2025 ambulatory AMINA JAIMES Facil ity:[facility] Start: 02-05-2025 End: 02-05-2025 Subsequent hospital visit by physician Xr [facility] Comment on above: Low back pain, unspe cified [M54.50] Start: 07-26-2024 End: 07-26-2024 ambulatory Amina Jaimes NP Facility:[facility] Start: 07-14-2024 End: 07-14-2024 ambulatory WILBERTO BLAKE MD Facility:[id number] Start: 05-14-2024 End: 05-15-2024 ambulatory OSKAR GALVAN Facility:[id number] Start: 01-13-2024 End: 01-13-2024 ambulatory [facility] Work Phone: Start: 01-13-2024 End: 01-13-2024 Patient encounter procedure [facility]-Cat Scan, [facility] Work Phone: Start: 11-25-2023 Telephone encounter Bernarda Moses MD Other Phone: [facility] Comment on above: Left Message To Call Back Start: 01-25-2023 End: 01-25-2023 ambulatory [facility] Work Phone: Start: 01-25-2023 End: 01-25-2023 Patient encounter procedure [facility]-Laboratory, Specimen Start: 10-08-2022 End: 10-08-2022 ambulatory [facility] Work Phone: Start: 10-08-2022 End: 10-08-2022 Patient encounter procedure [facility]-Laboratory, Specimen Start: 07-22-2022 End: 07-22-2022 Office outpatient visit 25 minutes Bernarda Moses MD Work Phone: [facility] Comment on above: Chest pain, exertion al (Primary Dx); VERDUZCO (dyspnea on exertion); Stage 3a chronic kidney disease (HCC); Body mass index (BMI) 30.0-30.9, adult Start: 07-13-2022 Telephone encounter Bernarda Moses MD Work Phone: [facility] Comment on above: Medical Record Revie w Start: 07-13-2022 ambulatory Bernarda Moses [facility] Start: 06-29-2022 Telephone encounter Bernarda Moses MD Work Phone: [facility] Start: 06-24-2022 End: 06-24-2022 Patient encounter procedure Bernarda Moses MD Work Phone: [facility] Comment on above: Encounter for long-t erm (current) use of medications (Primary Dx); Hypercholesteremia; Benign prostatic hyperplasia, unspecified whether lower urinary tract symptoms present; Idiopathic gout, unspecified chronicity, unspecified site; Hypothyroidism due to acquired atrophy of thyroid; Dyspnea, unspecified type; Medicare annual wellness visit, subsequent; Body mass index (BMI) 30.0-30.9, adult Start: 12-22-2021 End: 12-22-2021 Patient encounter procedure [facility]-Laboratory, Specimen Start: 09-04-2021 End: 09-04-2021 Patient encounter procedure [facility]-Laboratory, Specimen Start: 09-14-2018 End: 09-14-2018 [facility] Start: 06-08-2018 Patient encounter procedure FABIAN [facility] Start: 11-30-2017 Patient encounter procedure [facility] Start: 11-06-2017 Patient encounter procedure [facility] Procedures Date Procedure Procedure Detail Performing Clinician Start: 01-13-2024 CT of chest without contrast Start: 06-24-2022 Lipid 1996 panel - S paolo or Plasma [facility] Start: 09-18-2020 Colonoscopy Bernarda Moses MD Work Phone: Start: 09-10-2020 Colonoscopy [facility] Plan of Treatment Date Care Activity Detail Author Start: 2031 RSV Vaccine (1 - 1-d ose 75+ series) RSV Vaccine (1 - 1-dose 75+ series) [facility] Start: 08-05-2028 Lipid panel Cholesterol [facility] Start: 06-24-2027 Lipid panel [facility] Start: 06-24-2027 Prostate specific antigen measurement Prostate Cancer Screening Discussion [facility] Start: 09-08-2026 Lipid panel Cholesterol [facility] Start: 01-30-2026 Tetanus vaccination Tetanus (T d or Tdap) Booster [facility] Start: 01-30-2026 Urine microalbumin profile DTaP,Tdap,Td Vaccine (2 - Td or Tdap) [facility] Start: 09-18-2025 Screening for malign ant neoplasm of colon [facility] Start: 06-24-2025 Diabetes Screening Diabetes Screenin g [facility] Start: 05-28-2025 Influenza vaccination Influenz a Vaccine (Season Ended) [facility] Start: 05-25-2025 X-ray of ankle, thre e or more views Ankle min 3 Views [facility] Start: 05-25-2025 XR Ankle GE 3 Views [facility] Start: 09-27-2024 Advance Directive Discussion Advance Directive Discussion [facility] Start: 05-28-2024 Covid-19 Vaccine ( season) Covid-19 Vaccine ( season) [facility] Start: 06-24-2023 Prostate specific antigen measurement Prostate Cancer Screening (shared decision making) [facility] Start: 06-24-2023 Thyroid stimulating hormone measurement TSH [facility] Start: 05-28-2023 Annual Wellness Visi t (G0439) Annual Wellness Visit (G0439) [facility] Start: 05-28-2023 COVID-19 Vaccine ( season) COVID-19 Vaccine ( season) [facility] Start: 05-28-2023 Influenza vaccination Influenza Vacc ine (#1) [facility] Start: 06-27-2022 Influenza vaccination Influenza Vacc ine (#1) [facility] Start: 11-08-2021 COVID-19 Vaccine (3 - Booster for Sally series) COVID-19 Vaccine (3 - Booster for Sally series) [facility] Start: 09-10-2021 Screening for malign ant neoplasm of colon [facility] Start: 2021 [facility] Start: 11-30-2020 Thyroid stimulating hormone measurement TSH [facility] Start: 2016 Hepatitis B (HBV) Vaccine (optional start 60+ years) Hepatitis B (HBV) Vaccine (optional start 60+ years) [facility] Start: 2016 RSV vaccine (optiona l 60+ years) RSV vaccine (optional 60+ years) [facility] Start: 2006 Measurement of occul t blood in single stool specimen FIT [facility] Start: 2006 Pneumococcal Vaccine : 50+ (1 of 1 - PCV) Pneumococcal Vaccine: 50+ (1 of 1 - PCV) [facility] Start: 2006 Shingles (RZV) Vacci ne (1 of 2) Shingles (RZV) Vaccine (1 of 2) [facility] Start: 2006 Shingrix Vaccine (1 of 2) Shingrix Vaccine (1 of 2) [facility] Start: 2001 Screening for malign ant neoplasm of colon [facility] Start: 1975 Hepatitis A (HAV) Vaccine (optional start 19+ years) Hepatitis A (HAV) Vaccine (optional start 19+ years) [facility] Start: 1974 Anxiety Screening Anxiety Screening [facility] Start: 1974 [facility] Comment on above: Ordered: 06/24/2022 Assay of thyroid stimulating hormone tsh [facility] Comment on above: Ordered: 06/24/2022 Basic metabolic 2000 panel - Serum or Plasma [facility] Comment on above: Ordered: 06/24/2022 Hepatic function panel [facility] Comment on above: Ordered: 06/24/2022 Lipid 1996 panel - Serum or Plasma [facility] Comment on above: Ordered: 06/24/2022 Prostate specific Ag panel - Serum or Plasma [facility] [email or web address] [facility] Work Phone: Comment on above: Ordered: 06/24/2022 Immunizations Immunization Date Immunization Notes Care Provider [facility] 09-13-2021 Moderna Monovalent (12+ yrs) COVID-19 vaccine, mRNA, spike protein, LNP, PF, 100 mcg/0.5 mL (VPR=570) Bernarda Moses MD Other Phone: [facility] [email or web address] [facility] Work Phone: 02-12-2021 Sally SARS-COV-2 (COVID-19) vaccine, vector non-replicating, recombinant spike protein-Ad26, preservative free, 0.5 mL (GQW=749) Bernarda Moses MD Work Phone: [employer] 01-31-2016 tetanus toxoid, reduced diphtheria toxoid, and acellular pertussis vaccine, adsorbed Bernarda Moses MD Work Phone: [employer] Work Phone: Payers Date Payer Category Payer Medicare (Managed Care) [facility] CARE HMO [id number] 2024 Self-pay [id number] 2024 Unknown [id number] 2021 Unknown SP/UNINSURED PEN DING FINANCIAL PROGRAM EVALUATION 2021-Present Other [id number] 2021 Medicare [facility] - MEDICARE AAR MEDICARE COMPLETE [id number] 2021-Present [phone] [address] [address] [place] [address] Medicare HMO [id number] 2008 Private Health Insurance 1955 Unknown [id number] 1955 Unknown [id number] 1955 Unknown [id number] Private Health Insurance [id number] Unknown [id number] Unknown [id number] Unknown [id number] Unknown [id number] Unknown [id number] Social History Date Type Detail Facility Start: 04-23-2021 End: 03-08-2023 Tobacco smoking status NHIS Unknown if ever smoked [facility] Start: 11-10-2020 Spouse/ Signif icant Other [facility] Start: 1955 Sex Assigned At Male [facility] Start: 08-30-2019 End: 05-22-2025 Tobacco smoking status NHIS Never smoked tobacco [facility] Start: 10-27-2017 End: 08-30-2019 Tobacco use and exposure Smokeless tobacco non-user [facility] Start: 06-24-2022 End: 07-22-2022 Alcohol intake Lifetime non-drinker (finding) [facility] Start: 08-30-2019 History SDOH Alcohol Frequency 1 [facility] Start: 1955 Sex Assigned At Not on file [facility] Start: 06-14-2022 End: 06-24-2022 Exposure to SARS-CoV-2 (event) Not sure [facility] Start: 07-11-2021 End: 07-25-2021 Gender identity Not on file [facility] Work Phone: Start: 07-25-2021 Alcoholic beverage intake Current non-drinker of alcohol (finding) [facility] Start: 07-11-2021 End: 07-25-2021 History of Social function [facility] National Score (1-100), lower number is lower risk Not on file [facility] Functional Status Date Assessment Result Facility 10-10-2014 Are you deaf, or do you have serious difficulty hearing No 10/10/2014 9:24 AM Juliana Tinajero Ma [facility] 10-10-2014 Are you blind, or do you have serious difficulty seeing, even when wearing glasses No 10/10/2014 9:24 AM Juliana Tinajero Ma No [facility] 10-10-2014 Do you have serious difficulty walking or climbing stairs No 10/10/2014 9:24 AM Juliana Tinajero Ma [facility] 10-10-2014 Do you have difficul ty dressing or bathing No 10/10/2014 9:24 AM Juliana Tinajero Ma [facility] 10-10-2014 Because of a physica l, mental, or emotional condition, do you have difficulty doing errands alone such as visiting a physician's office or shopping No 10/10/2014 9:24 AM Juliana Tinajero Ma [facility] Mental Status Date Assessment Result Facility 10-10-2014 Because of a physica l, mental, or emotional condition, do you have serious difficulty concentrating, remembering, or making decisions No 10/10/2014 9:24 AM MICHELLE IslasJuliana castillo Ma No [facility] Clinical Notes 07-11-2021 to 02-05-2025 Belen Peterson RT(R) - 02/05/2025 3:00 PM EDT Note Date & Type Note Facility 02-05-2025 History of Present illness Narrative Radiology Service Progress Note PATIENT NAME: Arturo Snow DATE OF SERVICE: February 05, 2025 TIME: 3:13 PM PATIENT IDENTITY VERIFICATION COMPLETED USING TWO (2) IDENTIFIERS: Name and Date of confirmed by patient verbally. FALL SCREENING: Has the patient had 2 falls in the last year or 1 fall with injury or currently using an Ambulatory Assistive Device (Walker, Cane, Wheelchair, Crutches, etc.)? No PATIENT GENDER DATA: Assigned male at PATIENT RELEVANT IMPLANT DATA REVIEWED: Not Applicable PATIENT PRESENTS WITH AN IMPLANTABLE OR ATTACHED INSTRUCTIONAL MATERIAL DIRECTOR: No RADIOLOGY DEPARTMENT: General X-ray: Exam(s) Completed: Spine X-Ray(s): Cervical AP / LAT / OBL and Lumbar AP / LAT / L5-S1 / OBL PERIPHERAL IV DATA: Not applicable SIGNED BY: RT Funmi(Jc) February 05, 2025 3:13 PM documented in this encounter [facility] 02-05-2025 Note HNO ID: [id number] Author: BELEN PETERSON RT(Jc) Service: ? Author Type: Technologist Type: Progress Notes Filed: 02/05/2025 15:14 Note Text: Radiology Service Progress Note PATIENT NAME: Arturo Snow DATE OF SERVICE: February 05, 2025 TIME: 3:13 PM PATIENT IDENTITY VERIFICATION COMPLETED USING TWO (2) IDENTIFIERS: Name and Date of confirmed by patient verbally. FALL SCREENING: Has the patient had 2 falls in the last year or 1 fall with injury or currently using an Ambulatory Assistive Device (Walker, Cane, Wheelchair, Crutches, etc.)? No PATIENT GENDER DATA: Assigned male at PATIENT RELEVANT IMPLANT DATA REVIEWED: Not Applicable PATIENT PRESENTS WITH AN IMPLANTABLE OR ATTACHED INSTRUCTIONAL MATERIAL DIRECTOR: No RADIOLOGY DEPARTMENT: General X-ray: Exam(s) Completed: Spine X-Ray(s): Cervical AP / LAT / OBL and Lumbar AP / LAT / L5-S1 / OBL PERIPHERAL IV DATA: Not applicable SIGNED BY: Belen Peterson, RT(R) February 05, 2025 3:13 PM [facility] 01-29-2025 Evaluation note Diagnosis Onset Date Resolution Cervical muscle strain acute Ma 2024 4:39pm Torticollis, acquired acute January 29, 2025 4:39pm [facility] Work Phone: 1(654) 111-891008-19-2024 NoteCommunication Log Entered On: 05/15/2024 15:38 EDT Performed On: 05/15/2024 15:38 EDT by Cha Pham RN Call Log Physician Call Log Physician requesting : KELLIE RODRIGUEZ DO Patient Location : 166 Physician being called : DAVE RAMOS MD Reason : Consult Telephone number : [employer] Time Call Placed : 15:43 EDT Comment : 05/14/24 notified via Cha Humphries RN - 05/15/2024 15:38 [facility] 05-15-2024 NoteNursing Discharge Summary Entered On: 05/15/2024 15:31 EDT Performed On: 05/15/2024 15:30 EDT by Cha Pham RN, DC Information Discharged to : Home Reg VTE Warfarin at Discharge : No Cha Pham RN - 05/15/2024 15:30 EDT Education [employer] Methodology : Explanation Barriers to Learning : None evident Cha Pham RN - 05/15/2024 15:30 [facility] 05-15-2024 NotePT Inpatient Evaluation Acute Entered On: 05/15/2024 13:10 EDT Performed On: 05/15/2024 10:40 EDT by Lamonte Zaman DPT Reason for Treatment Past Medical History PT : hypothyroidism, BPH, recent neck surgery Chief Complaint PT : Patient presents with syncope, headache, difficulty with vision, and HTN. Precautions : full code Lamonte Zaman DPT - 05/15/2024 12:59 EDT General Info Precautions RTF : Consult Physician, 05/15/2024 08:00:00 EDT, ISAURO STYLES MD, syncope, Ordered Communication CONSTANT Order, 05/14/2024 13:40:00 EDT, Constant Order, Current ACLS Provider may, Initiate [employer] Advanced Cardiac Life support Algorithm per patient code status, Ordered Communication CONSTANT Order, 05/14/2024 13:40:00 EDT, Constant Order, STAT EKG for Chest Pain, STAT ABGs for Acute Respiratory Distress, STAT Potassium/Magnesium for any significant change in condition/rhythm, Ordered Notify Provider, 05/14/2024 13:40:00 EDT, Constant Order, Contact OBS Unit PA/BUSINESS DEVELOPMENT EXECUTIVE for any change in clinical status, positive test results, abnormal rhythm, or EKG changes, Ordered Oxygen Therapy, 05/14/2024 13:40:00 EDT, Nasal Cannula, 2-3L, PRN, Ordered Level of Care Order, 05/14/2024 12:37:00 EDT, Medical Outpatient with Observation Services, [facility], Ordered Transfer Care of Patient to Attending, 05/14/2024 12:37:00 EDT, Upon discharge from the ED, all continued medications and orders become the responsibility of the admitting/attending physician., Ordered Misc Nutrition Task to Nursing, 05/14/2024 09:09:00 EDT, Constant Order, NPO, Ordered Basic Command Following : Intact Safety/Judgment : Intact Pain Present : Yes actual or suspected pain Ability to Make Needs Known PT : Yes Orientation Assessment : Oriented x 4 Affect/Behavior : Appropriate, Alert, Calm, Cooperative, Oriented Lamonte Zaman DPT - 05/15/2024 12:59 EDT History, Problems History of Comorbidities,Personal Factor : 1-2 personal factors and/or comorbidities Lamonte Zaman DPT 05/15/2024 12:59 EDT Pain Assessment Pain Location : Neck Self Report Pain : Numeric rating scale Numeric Pain Scale : 3 Numeric Pain Score : 3 Larrynhardt Lamonte ZAMORANO 05/15/2024 12:59 EDT Pain Assessment Detail Interventions Implemented : Repositioning, Rest Pain Notification : Notified nursing Lamonte Zaman DPT 05/15/2024 12:59 EDT Home Environment Living Environment : Home Environment No qualifying data available *Living Situation : Home Independently *Lives With : Spouse Lives In : Single level home Lamonte Zaman DPT 05/15/2024 12:59 EDT Stairs Outside Stairs Number of Stairs : 1 Lamonte Zaman DPT 05/15/2024 12:59 EDT Home Setup Primary Bedroom : 1st floor Primary Bathroom : 1st floor Kitchen : 1st floor Lamonte Zaman DPT 05/15/2024 12:59 EDT Stairs - Additional Information : Personal ADL Lamonte Zaman DPT 05/15/2024 12:59 EDT Home Environment II Living Environment : Home Environment No qualifying data available Devices/Equipment : Cane, Rolling walker, Tub-Shower combination Lamonte Zaman DPT 05/15/2024 12:59 EDT Prior Functional Status ADL : Independent Mobility : Independent Instrumental ADL : Assist needed Cognitive-Communication Skills : Independent Lamonte Zaman DPT 05/15/2024 12:59 EDT Additional Information : Patient lives with his . Patient is independent with all mobility, ADLs, IADLs. Patient denies falls. Lamonte Zaman DPT 05/15/2024 12:59 EDT LE Range/Strength LE Overall Range of Motion Grid Left Lower Extremity Active Range : Within functional limits Right Lower Extremity Active Range : Within functional limits Lamonte Zaman DPT 05/15/2024 12:59 EDT Lt Lower Extremity Strength : Within functional limits Lamonte Zaman DPT 05/15/2024 12:59 EDT Left Lower Extremity Strength Grid Hip Flexion : 5 Knee Flexion : 5 Knee Extension : 5 Ankle Dorsiflexion : 5 HannahardLamonte givens DPT 05/15/2024 12:59 EDT Rt Lower Extremity Strength : Within functional limits Lamonte Zaman DPT 05/15/2024 12:59 EDT Right Lower Extremity Strength Grid Hip Flexion : 5 Knee Flexion : 5 Knee Extension : 5 Ankle Dorsiflexion : 5 Larrynhardt DPT, Lamonte - 05/15/2024 12:59 EDT UE ROM/Strength Overall Range of Motion Left Upper Extremity Active Range : Within functional limits Right Upper Extremity Active Range : Within functional limits Larrynhardt DPT, Lamonte 05/15/2024 12:59 EDT Left Upper Extremity Strength : Within functional limits Right Upper Extremity Strength : Within functional limits Larrynhardt DPT, Lamonte - 05/15/2024 12:59 EDT Mobility Mobility Grid Supine to Sit : Complete I Sit to Supine : Complete I Transfer Sit to Stand : Complete I Transfer Stand to Sit : Complete I Larrynhardt VIPINT, Lamonte - 05/15/2024 12:59 EDT Ambulation Level : Complete independe (more content not included)...[facility]08-19-2024 NotePatient: ARTURO SNOW Age: 68 years Sex: Male : 1955 Associated Diagnoses: None Author: CURT GREER MDSHAR History of Present Illness Patient is a 68-year-old male with medical history significant for hypothyroidism and BPH who presents to the ED today for syncope and headache. Patient states 2 days ago he was getting his haircut when he became extremely diaphoretic and dizzy and then lost consciousness slumping forward in the chair, EMS was called and he was transported to [facility] where he believes he received a CT brain and then was discharged home and told to follow-up with his PCP on Wednesday. This morning patient had a similar episode but did not completely lose consciousness and family notified EMS. Patient denies chest pain, shortness of breath, nausea/vomiting but does endorse headache 5/10 in occipital region which is worsened with flexion and extension of neck, blurry vision and feeling fuzzy. Currently, patient is sitting up comfortably in bed with family at bedside, is alert/oriented x 4. Of note, 6 weeksago patient had cyst removed from his neck which he states was tangled up in a bunch of nerves. Headaches began shortly after cyst removal. Histories Past Medical History: Past Medical HistoryNo qualifying data available. Family History: No qualifying data available. Procedure history: No qualifying data available. Social History Social & Psychosocial History Social History Alcohol Denies Alcohol Use Substance Abuse Denies Substance Abuse Tobacco Never smoker, Exposure No Exposure. Psychosocial History No active psychosocial history has been recorded . Health Status Allergies (1) Active Severity Reaction No Known Allergies None Documented .Current medications: Home Meds (ST) Home Medications (2) Active Flomax 0.4 mg oral capsule 0.4 mg = 1 caps, ORAL, DAILY Synthroid 150 mcg (0.15 mg) oral tablet 150 mcg = 1 tabs, ORAL, DAILY Active Problems (12) Acute maxillary sinusitis At risk for falls Atrophy of thyroid - acquired Benign prostatic hyperplasia Chronic kidney disease stage 3A. Gastroesophageal reflux disease Gout Hypercholesterolemia Hypertensive disorder Hypothyroidism Multiple nodules of lung Sebaceous cyst of skin Review of Systems Constitutional: Negative except as documented in history of present illness. Eye: Negative except as documented in history of present illness. Ear/Nose/Mouth/Throat: Negative except as documented in history of present illness. Respiratory: Negative except as documented in history of present illness. Cardiovascular: Negative except as documented in history of present illness. Gastrointestinal: Negative except as documented in history of present illness. Genitourinary: Negative except as documented in history of present illness. Hematology/Lymphatics: Negative except as documented in history of present illness. Endocrine: Negative except as documented in history of present illness. Immunologic: Negative except as documented in history of present illness. Musculoskeletal: Negative except as documented in history of present illness. Integumentary: Negative except as documented in history of present illness. Neurologic: Negative except as documented in history of present illness. Psychiatric: Negative except as documented in history of present illness. Physical Examination VS/Measurements Vital Signs (last 24 hrs) Last Charted Temp Oral 36.6 degC (MAY 14 15:41) Heart Rate Peripheral 61 bpm (MAY 15 07:38) Resp Rate 18 br/min (MAY 15 07:37) SBP H 158 mmHg (MAY 15:37) DBP 88 mmHg (MAY 15:37) BMI 31 (MAY 14 15:45) General: Alert and oriented. Eye: Vision unchanged. HENT: Normocephalic. Neck: No thyromegaly. Respiratory: Lungs are clear to auscultation. Cardiovascular: Normal rate, No gallop. Gastrointestinal: Soft, Non-tender. Lymphatics: No lymphadenopathy neck, axilla, groin. Musculoskeletal: No deformity. Integumentary: Warm. Neurologic: Grossly intact. Cognition and Speech: Functional cognition intact. Psychiatric: Cooperative. Review / Management Results review: General Labs () CBCWD WBC: 8 x103/uL (05/15/24) RBC: 5.29 x106/uL (05/15/24) HGB: 16.6 g/dL (05/15/24) HCT: 47.9 % (05/15/24) MCV: 90.6 fL (05/15/24) MCH: 31.5 pg (05/15/24) MCHC: 34.8 g/dL (05/15/24) RDW: 14.1 % (05/15/24) Platelet: 157 x103/uL (05/15/24) MPV: 8.8 fL (05/15/24) CMP BUN: 16 mg/dL (05/15/24) Na: 142 mmol/L (05/15/24) K: 4.5 mmol/L (05/15/24) Chloride: 106 mmol/L (05/15/24) CO2, venous: 30 mmol/L (05/15/24) Glucose: 92 mg/dL (05/15/24) Creatinine: 1.4 mg/dL High (05/15/24) Total Protein: 6 g/dL (05/15/24) Calcium: 8.9 mg/dL (05/15/24) Bilirubin, Total: 1.6 mg/dL High (05/15/24) Alk Phos: 65 unit/L (05/15/24) GOT: 19 unit/L (05/15/24) GPT: 24 unit/L (05/15/24) Magnesium: 1.9 mg/dL (more content not included)...[facility]08-18-2024 NoteCommunication Log Entered On: 05/14/2024 16:58 EDT Performed On: 05/14/2024 16:58 EDT by Gerri Uriarte RN Call Log Physician Call Log Physician requesting : KELLIE RODRIGUEZ DO Patient Location : 166 Physician being called : DAVE RAMOS MD Reason : Consult Telephone number : donis Time Call Placed : 15:43 EDT Comment : 05/14/24 notified via Gerri Donis RN - 05/14/2024 16:58 [facility] 05-14-2024 NoteED Nursing Discharge Summary Entered On: 05/14/2024 15:47 EDT Performed On: 05/14/2024 15:15 EDT by Scarlett Melton RN CT Information [id number] ED IV's : Continue upon transfer ED IV Site Assessment : Yes, Completed in [facility] ED Vitals Completed : Yes ED Final Assessment Completed : N/A ED Progress Note Completed : Yes Complete all PRN/Pain response forms? : N/A ED Disassociate Patient from Monitor : Yes Updated Depart Time : Yes ED Belongings sent w patient 616331 : Not applicable Scarlett Melton RN - 05/14/2024 15:46 EDT Education Instructions given to : Patient TeachBack Methodology : Explanation Barriers to Learning : None evident Scarlett Melton RN - 05/14/2024 15:46 EDT Post-Hospital Education Adult Grid Plan of Care : Verbalizes understanding Scarlett Melton RN - 05/14/2024 15:46 EDT ED Assistance Summary Assistance Given? : Yes Assisted with Physician Consult : Yes Scarlett Melton RN - 05/14/2024 15:46 EDT [facility]08-18-2024 Note Communication Log Entered On: 05/14/2024 15:43 EDT Performed On: 05/14/2024 15:43 EDT by Ines Jefferson Call Log Physician Call Log Physician requesting : KELLIE RODRIGUEZ DO Patient Location : 166 Physician being called : DAVE RAMOS MD Reason : Consult Telephone number : donis Time Call Placed : 15:43 EDT Comment : 05/14/24 notified via Ines Valadez - 05/14/2024 15:43 [facility]08-18-2024 NoteCommunication Log Entered On: 05/14/2024 15:43 EDT Performed On: 05/14/2024 15:42 EDT by Ines Jefferson Call Log Physician Call Log Physician requesting : KELLIE RODRIGUEZ DO Patient Location : 166 Physician being called : DAVE RAMOS MD Reason : Consult Telephone number : donis Time Call Placed : 15:43 EDT Comment : 05/14/24 notified via Ines Valadez - 05/14/2024 15:42 [facility]08-18-2024 NoteImmunization Screening Entered On: 05/14/2024 15:39 EDT Performed On: 05/14/2024 15:37 EDT by Gerri Uriarte RN Immunization Screening Immunizations Current : Yes Last Tetanus : Unknown COVID-19 Fully Vaccinated : Yes COVID-19 Vaccine Received : Unknown COVID Booster Received : No Gerri Uriarte RN - 05/14/2024 15:37 [facility]Order Comment: Order entered secondary to inpatient admission.Result Comment: [id number] NoteOutreach Team ([phone]) Contact Details: Outbound call. Left Message. Care Gaps Scheduling Medicare AWV / PCP Visit: AWV due Eye Exam: Not due Mammogram: N/AThe [facility] CenterTheySay [id number] History of Present illness Narrative* Bernarda Moses MD - 07/22/2022 2:15 PM EDT Images from the original note were not included. HPI: Patient states that he continues to have shortness of breath on exertion and mild central sternal discomfort worse with exertion. States that he has had relatively frequent feelings of palpitations. Had a normal stress echo 5 years ago. Also complains of neuropathic type pain in his lower extremities. Talked about using gabapentin at bedtime will try that to see if we can relieve some of the discomfort. He had been using ibuprofen but we have discontinued that due to a modestly elevated creatinine. Greater than 50% counseling regarding above. The total time including pre charting, visit and post charting is 30 minutes. Chief Complaint Patient presents with Shortness of breath Arturo Snow PCP is Bernarda Moses MD Patient was identified by name and date of . Bernarda Moses MD Subjective: Vitals Recorded in This Encounter 07/22/2022 1356 BP: 139/89 Pulse: 76 Resp: 16 Temp: 97.6 F (36.4 C) Temp src: Temporal Weight: 249 lb (112.9 kg) Pain Score: 0 Patient Active Problem List: Encounter for long-term (current) use of medications [Z79.899] Hypercholesteremia [E78.00] Benign prostatic hyperplasia [N40.0] Idiopathic gout [M10.00] Hypothyroidism due to acquired atrophy of thyroid [E03.4] Health Maintenance Topic Date Due Pneumococcal Vaccine(s) (65+ yrs) (1 - PCV) Never done COVID-19 Vaccine (3 - Booster for Sally series) 11/08/2021 Shingles (RZV) Vaccine (1 of 2) 2006 Influenza Vaccine (1) 06/27/2022 Annual Wellness Visit (G0439) 05/28/2023 TSH 06/24/2023 CRC Screening 09/18/2025 Tetanus (Td or Tdap) Booster 01/30/2026 Cholesterol 06/24/2027 Hepatitis C Antibody Completed Tdap Booster Completed Current Outpatient Medications Medication Sig Dispense Refill gabapentin (NEURONTIN) 300 MG capsule Take 1 Capsule by mouth at bedtime for 180 days. 90 Capsule 1 allopurinol (ZYLOPRIM) 100 MG tablet Take by mouth. rosuvastatin (CRESTOR) 10 MG tablet Take 1 Tablet by mouth daily. 90 Tablet 3 tadalafil (CIALIS) 20 MG tablet Take 1 Tablet by mouth as needed for Erectile Dysfunction. 30 Tablet 5 tamsulosin (FLOMAX) 0.4 MG capsule Take 1 Capsule by mouth daily. 90 Capsule 3 levothyroxine (SYNTHROID) 125 MCG tablet Take 1 Tablet by mouth daily. 90 Tablet 3 No current facility-administered medications for this visit. Review of Systems Physical Exam Vitals and nursing note reviewed. Constitutional: Appearance: Normal appearance. Cardiovascular: Rate and Rhythm: Normal rate and regular rhythm. Heart sounds: No murmur heard. Pulmonary: Effort: Pulmonary effort is normal. Breath sounds: Normal breath sounds. Musculoskeletal: Right lower leg: No edema. Left lower leg: No edema. Neurological: Mental Status: He is alert. Assessment and Plan: Arturo was seen today for shortness of breath. Diagnoses and all orders for this visit: Chest pain, exertional - EXTERNAL SERVICE REQUEST FOR CARE OUTSIDE THE [facility] - EXERCISE STRESS ECHOCARDIOGRAM SERVICE REQUEST VERDUZCO (dyspnea on exertion) - EXTERNAL SERVICE REQUEST FOR CARE OUTSIDE THE [facility] - EXERCISE STRESS ECHOCARDIOGRAM SERVICE REQUEST Stage 3a chronic kidney disease (HCC) Other orders - gabapentin (NEURONTIN) 300 MG capsule; Take 1 Capsule by mouth at bedtime for 180 days. * Loretta Barnes - 07/22/2022 1:55 PM EDT Identification was verified by patient verbalizing his name and date of . documented in this [id number] Telephone encounter Note* Telephone Encounter - Emily Donahue - 07/13/2022 10:45 AM EDT Care gaps scheduling Health maintenance: Medicare AWV/PCP Visit not due Eye Exam:not due Foot Exam:not due Annual Bloodwork:not due CHRISS:n/a FIT:not due [id number] Miscellaneous Notes* Telephone Encounter - Emily Donahue - 07/13/2022 10:45 AM EDT Care gaps scheduling Health maintenance: Medicare AWV/PCP Visit not due Eye Exam:not due Foot Exam:not due Annual Bloodwork:not due CHRISS:n/a FIT:not due documented in this [id number] Telephone encounter Note* Telephone Encounter - John Blackmon - 06/29/2022 11:24 AM EDT Patient returned clinic call. Informed of message per notes below. Patient verbalized understandingand voiced no further questions. [id number] Miscellaneous Notes* Telephone Encounter - Cherelle Blackmonphilipp - 06/29/2022 11:24 AM EDT Patient returned clinic call. Informed of message per notes below. Patient verbalized understandingand voiced no further questions. * Telephone Encounter - Alejandra Oglesby - 06/29/2022 10:43 AM EDT I have attempted to contact this patient by phone to return their call, but there is no answer. Will try again later. LMTCB If pt calls back please go over lab message below Thank you * Telephone Encounter - Alejandra Oglesby - 06/29/2022 10:41 AM EDT ----- Message from Bernarda Moses MD sent at 06/25/2022 12:52 PM EDT ----- Your blood counts, liver function, blood sugar, thyroid function and PSA were normal. The cholesterol was again elevated. Please watch fats in the diet. There was a slight decrease in kidney function. Please avoid numt-kxt-zvwffda NSAIDs such as ibuprofen and Aleve. Please stay well hydrated. documented in this [id number] Telephone encounter Note* Telephone Encounter - Alejandra Oglesby - 06/29/2022 10:43 AM EDT I have attempted to contact this patient by phone to return their call, but there is no answer. Will try again later. LMTCB If pt calls back please go over lab message below Thank you [id number] Telephone encounter Note* Telephone Encounter - Alejandra Oglesby - 06/29/2022 10:41 AM EDT ----- Message from Bernarda Moses MD sent at 06/25/2022 12:52 PM EDT ----- Your blood counts, liver function, blood sugar, thyroid function and PSA were normal. The cholesterol was again elevated. Please watch fats in the diet. There was a slight decrease in kidney function. Please avoid soqr-uwa-nviawbd NSAIDs such as ibuprofen and Aleve. Please stay well hydrated. [id number] History of Present illness Narrative* Meri Urena RN - 06/24/2022 11:46 AM EDT Identity was confirmed by verifying patient name and date of . Blood drawn for patient. Blood obtained from right arm, using 21 gauge butterfly. Patient denies discomfort, bleeding controlled, bandage applied. Site appears normal. * Yani Mancera RN - 06/24/2022 11:05 AM EDT Identification was verified by patient verbalizing his name and date of . * Bernarda Moses MD - 06/24/2022 11:00 AM EDT ANNUAL WELLNESS VISIT Mr. Snow is a 66 year old who is being seen for his Annual Wellness Visit. I have reviewed and updated the following information (Care Team, Medical History, Surgical History, Social history, Family history and current medications including incy-xfk-ezhvznh medications and supplements): Patient Care Team: Bernarda Moses MD as PCP - General (Family Medicine) Past Medical History: Diagnosis Date Colon polyp Hypothyroid Past Surgical History: Procedure Laterality Date TONSILLECTOMY VASECTOMY Family History Problem Relation Age of Onset Cancer Father lung, smoker Coronary Artery Disease Father Social History Socioeconomic History Marital status: Tobacco Use Smoking status: Never Smokeless tobacco: Never Substance and Sexual Activity Alcohol use: Never Drug use: Never Current Outpatient Medications on File Prior to Visit Medication Sig Dispense Refill allopurinol (ZYLOPRIM) 100 MG tablet Take by mouth. rosuvastatin (CRESTOR) 10 MG tablet Take 1 Tablet by mouth daily. 90 Tablet 3 tadalafil (CIALIS) 20 MG tablet Take 1 Tablet by mouth as needed for Erectile Dysfunction. 30 Tablet 5 tamsulosin (FLOMAX) 0.4 MG capsule Take 1 Capsule by mouth daily. 90 Capsule 3 levothyroxine (SYNTHROID) 125 MCG tablet Take 1 Tablet by mouth daily. 90 Tablet 3 No current facility-administered medications on file prior to visit. I have reviewed the following additional information for Mr. Snow. Falls Risk Screen Falls Risk Screen Fall History (past 12 months): No Fallen with Injury?: No Problems with Walking or Balance?: No PHQ Depression Screen PHQ-9 Depression Screen Decreased Interest / Pleasure?: Not at all Down / Depressed / Hopeless?: Not at all PHQ-2 Total: 0 PHQ2 Interpretation: Screening is Negative Problem Sleeping?: Not at all Tired / Little Energy?: Not at all Poor / Excessive Appetite?: Not at all Self Stoddard?: Not at all Trouble Concentrating?: Not at all Lethargic / Restless?: Not at all Suicidal Ideations?: Not at all Impact on Life?: Not difficult at all PHQ-9 Total Score: 0 Hearing Screen Hearing Screen Have you noticed any changes with your hearing? : No Vision Screen Vision Screen Have you noticed any changes with your vision? : No Advance Directives Advance Directives Advance Directives?: No Mini COG Mini-Cog Doc Brennan (used by permission of the author) Remember FIRST word?: Yes Remember SECOND word?: Yes Remember THIRD word?: (!) No Clock Diagram correct?: Yes Mini COG Total Score: 4 Health Risk Assessment No questionnaire available. Health Risk Assessment Flowsheet Row Patient response During the past four weeks, how much have you been bothered by emotional problems such as feeling anxious, depressed, irritable, sad, or downhearted and blue? Not at all at 06/24/2022 1107 During the past four weeks, has your physical and emotional health limited your social activities with family, friends, neighbors, or groups? Not at all at 06/24/2022 1107 During the past four weeks, how much bodily pain have you generally had? Mild at 06/24/20221106 During the past four weeks, was someone available to help you if you needed and wanted help? Yes, as much as I want at 06/24/20221106 During the past four weeks, what was the hardest physical activity you could do for at least two minutes? Moderate at 06/24/20221106 Can you get to places out of walking distance without help? Y at 06/24/20221106 Can you go shopping for groceries or clothes without someone s help? Y at 06/24/20221106 Can you prepare your own meals? Y at 06/24/20221106 Can you do your housework without help? Y at 06/24/20221106 Because of any health problems, do you need the help of another person with your personal care needs? N at 06/24/20221106 Can you handle your own money without help? Y at 06/24/20221106 During the past four weeks, how would you rate your health in general? Fair at 06/24/20221106 How have things been going for you during the past four weeks? Good and bad parts about equal at 06/24/20221106 Are you having difficulties driving your car? No at 06/24/20221106 Do you fasten your seatbelt when you are in a car? Always at 06/24/20221106 Falling or feeling dizzy when standing up? (past 4 weeks) Never at 06/24/20221106 Sexual problems? (past 4 weeks) Often at 06/24/20221106 Trouble eating well? (past 4 weeks) Never at 06/24/20221106 Tooth or denture problems? (past 4 weeks) Sometimes at 06/24/20221106 Problems using the telephone? (past 4 weeks) Never at 06/24/20221106 Tiredness or fatigue? (past 4 weeks) Sometimes at 06/24/20221106 Do you exercise for about 20 minutes three or more days a week? Yes, most of the time at 107 Have you been given any information to help you with hazards in your house that might hurt you? N at 06/24/20221106 Have you been given any information to help you with keeping track of your medications? N at 06/24/2022 1107 How often do you have trouble taking medicines the way you have been told to take them? I always take them as prescribed at 06/24/2022 1107 How confident are you that you can control and manage most of your health problems? Somewhat confident at 06/24/2022 1107 Physical examination Vital signs: BP 129/95 Pulse 92 Temp 97.3 F (36.3 C) (Temporal) Resp 18 Wt 248 lb (112.5 kg) BMI 30.19 kg/m WNL End of life preferences: Patient does not have an advanced care plan but is thinking about it I have provided counseling and referral for the following areas: Counseling: Medical Issues Referrals: Please see orders Assessment/Plan: Orders Placed This Encounter Procedures Prostate Specific Antigen (PSA) Full Lipid Profile TSH Hepatic Function Panel Basic Metabolic Panel Thyroxine (T4), Free EXTERNAL SERVICE REQUEST FOR CARE OUTSIDE THE [facility] 1. Encounter for long-term (current) use of medications 2. Hypercholesteremia 3. Benign prostatic hyperplasia, unspecified whether lower urinary tract symptoms present 4. Idiopathic gout, unspecified chronicity, unspecified site 5. Hypothyroidism due to acquired atrophy of thyroid 6. Dyspnea, unspecified type 7. Medicare annual wellness visit, subsequent Additional concerns: labs, refills documented in this [id number] Instructions* Patient Instructions* Bernarda Moses MD - 06/24/2022 10:23 AM EDT Personalized Preventive for Arturo Law Christian - 06/24/2022 Other Preventive Recommendations: Covid booster A preventive eye exam performed by an eye surgeon is recommended every 1-2 years to screen for glaucoma, cataracts, macular degeneration, and other eye disorders A preventive dental visit is recommended every 6 months Try to get at least 150 minutes of exercise per week or 10,000 steps per day on a pedometer Order FREE Exercise and Physical Activity book from [employer] [place] on Agin2-825-869-0732 orhttp://order.crow.nih.gov/health/publication/order/BK004 You need 2312-0522 mg of calcium and 6539-9374 IU of vitamin D per day - it is possible to meet your calcium requirement with diet alone, but a vitamin D supplement is usually necessary to meet this goal When exposed to sun, use a sunscreen that protects against bot UVA and UVB radiation with an SPF of30 or greater - reapply every 2 to 3 hours or after sweating, drying off with a towel, ot swimming Always wear a seat belt when traveling in a car, and a helmet when riding a bicycle or motorcycle documented in this [id number] NoteHNO ID: [id number] Author: Miguel Lyn DPM Service: ? Author Type: Physician Type: Progress Notes Filed: 07/25/2021 10:08 AM Note Text: Podiatric Office Visit: Chief Complaint: Right foot pain HPI: Mr. Arturo Snow is a 65 year old male presents for follow-up right foot pain. Patient states improvement since the last visit. States the forefoot/midfoot pain has resolved and he has no discomfort or pain. He now is located more pain to the anterior ankle joint. States it is tender especially with pressure. He did wear the fracture boot for the first week but has since stopped and is wearing regular shoes. He has been using Nolan wrap which he believes helps the most. States the pain is more significant towards the end of the day. No other pedal complaints at this time. PCP: Oskar Galvan MD: [facility] PAST MEDICAL HISTORY Diagnosis Date - Disorder of thyroid 01/31/2016 - Lung nodule 01/31/2016 - Prostate disorder - Thyroid disease : MEDICATIONS Current Outpatient Medications Medication Sig - levothyroxine (SYNTHROID) 125 mcg tablet TAKE ONE TABLET BY MOUTH EVERY DAY - tamsulosin (FLOMAX) 0.4 mg Take by mouth. - metoprolol succinate ER (TOPROL XL) 50 mg 24 hr tablet Take by mouth. - atorvastatin (LIPITOR) 20 mg tablet Take by mouth. - meloxicam (MOBIC) 15 mg tablet Take 1 tablet by mouth once daily. - methylPREDNISolone (MEDROL, IVA,) 4 mg Dose-Pack Use as directed - pantoprazole DR (PROTONIX) 40 mg tablet Take 1 tablet by mouth once daily. - levothyroxine (SYNTHROID) 88 mcg tablet Take 88 mcg by mouth daily before breakfast. - ACETAMINOPHEN (TYLENOL ORAL) Take by mouth as needed. No current facility-administered medications for this visit. : ALLERGIES No Known Allergies: History reviewed. No pertinent surgical history. History reviewed. No pertinent family history.: Social History Tobacco Use - Smoking status: Never Smoker - Smokeless tobacco: Never Used Substance Use Topics - Alcohol use: No - Drug use: No Physical Exam: Patient is alert and oriented x 3 in NAD Temp 36.6 ?C (97.8 ?F) Vascular: Palpable Dorsalis Pedis and Posterior Tibial Pulses B/L Capillary Fill time < 3 seconds to digits 1-5 B/L Skin temperature warm to warm tibial tuberosity to the digits B/L Increased in temperature overlying the midfoot on the right Moderate edema overlying the midfoot and first MPJ on the right Neurological: Intact light touch/epicritic sensation B/L Intact protective sensation as tested by 5.07 SWMF. Dermatological: Skin appears well hydrated and supple. good color, texture, turgor. No open lesions present. Webspaces clean and dry 1-4 b/l. Nails 1-5 b/l appear normal. Musculoskeletal/Orthopaedic: Rectus foot type +5/5 muscle strength Dorsiflexion, Plantarflexion, Inversion, Eversion B/L Ankle joint ROM decreased STJ ROM WNL No POP 1-5 TMTJs, right No POP first MPJ and with ROM, right No pain with dorsiflexion and plantarflexion at the level of the midfoot, right foot No pain with frontal plane MTJ, right There is pain on palpation to the anterior aspect of the lateral malleolus. Ankle is stable to testing, negative anterior drawer, talar tilt. No pain to the digits or metatarsals 2-5 Radiographs: 3 views of the right ankle were taken today. Radiographic impression: Bone stock is WNL. No acute fractures or dislocations noted. All cortices are intact. Joint spaces are maintained. No increase in ST density. Encounter Diagnosis ICD-10-CM 1. Foot sprain, right, initial encounter S93.601A 2. Edema of right foot R60.0 3. Pain in right foot M79.671 Plan: - Office Visit - Etiology and treatment options were discussed with the patient. - Reviewed the results of the x-rays with the patient which showed no fractures or dislocations. Advised he has likely developed a lateral ankle sprain and we discussed putting him in a lace up ankle brace. Patient has deferred. Given this would recommend a hightop working boot and an Nolan wrap. Continue activities as tolerated. We discussed follow-up in 2 to 3 weeks however patient deferred and states he will come back as needed. Miguel Lyn DPM, [facility] [address] [place] [address] W [email or web address] NoteHNO ID: [id number] Author: Miguel Lyn DPM Service: ? Author Type: Physician Type: Progress Notes Filed: 07/14/2021 8:58 AM Note Text: Initial Podiatric Office Visit: Chief Complaint: Right foot pain HPI: Mr. Arturo Snow is a 65 year old male with PMH indicated below presents to clinic complaining of right foot pain x 1 week. Patient states that he went camping over the weekend and thinks he may have injured his foot while going down the camper steps. Says that he didn't think anything of it at the time and was able to walk fine without a lot of pain for the next couple of days. He says that on Wednesday he woke up and stepped out of bed but had severe pain to the midfoot area. Says that since then, he has noticed increased redness, warmth, and swelling compared to the other foot which has worsened up until today. He has tried ibuprofen which helps but denies any other treatment. Denies any other wounds/lesions. Denies being a diabetic. Denies numbness, burning, tingling in the foot. Never had this in the past. Denies gout in the past. No other pedal complaints at this time. PCP: Oskar Galvan MD: [facility] PAST MEDICAL HISTORY Diagnosis Date - Disorder of thyroid 01/31/2016 - Lung nodule 01/31/2016 - Prostate disorder - Thyroid disease : MEDICATIONS Current Outpatient Medications Medication Sig - levothyroxine (SYNTHROID) 125 mcg tablet TAKE ONE TABLET BY MOUTH EVERY DAY - tamsulosin (FLOMAX) 0.4 mg Take by mouth. - metoprolol succinate ER (TOPROL XL) 50 mg 24 hr tablet Take by mouth. - atorvastatin (LIPITOR) 20 mg tablet Take by mouth. - pantoprazole DR (PROTONIX) 40 mg tablet Take 1 tablet by mouth once daily. - levothyroxine (SYNTHROID) 88 mcg tablet Take 88 mcg by mouth daily before breakfast. - ACETAMINOPHEN (TYLENOL ORAL) Take by mouth as needed. No current facility-administered medications for this visit. : ALLERGIES No Known Allergies: History reviewed. No pertinent surgical history. History reviewed. No pertinent family history.: Social History Tobacco Use - Smoking status: Never Smoker - Smokeless tobacco: Never Used Substance Use Topics - Alcohol use: No - Drug use: No Physical Exam: Patient is alert and oriented x 3 in NAD Temp 36.2 ?C (97.2 ?F) Vascular: Palpable Dorsalis Pedis and Posterior Tibial Pulses B/L Capillary Fill time < 3 seconds to digits 1-5 B/L Skin temperature warm to warm tibial tuberosity to the digits B/L Increased in temperature overlying the midfoot on the right Moderate edema overlying the midfoot and first MPJ on the right Neurological: Intact light touch/epicritic sensation B/L Intact protective sensation as tested by 5.07 SWMF. Dermatological: Skin appears well hydrated and supple. good color, texture, turgor. No open lesions present. Webspaces clean and dry 1-4 b/l. Nails 1-5 b/l appear normal. Musculoskeletal/Orthopaedic: Rectus foot type +5/5 muscle strength Dorsiflexion, Plantarflexion, Inversion, Eversion B/L Ankle joint ROM decreased STJ ROM WNL POP 1-5 TMTJs, right POP first MPJ and with ROM, right Pain with dorsiflexion and plantarflexion at the level of the midfoot, right foot Pain with frontal plane MTJ, right No pain to the ankle joint or rearfoot No pain to the digits or metatarsals 2-5 Radiographs: 3 views of the right foot were taken today. Radiographic impression: Bone stock is WNL. No acute fractures or dislocations noted. All cortices are intact. Joint spaces are maintained. No increase in ST density. Encounter Diagnosis ICD-10-CM 1. Foot sprain, right, initial encounter S93.624D 2. Edema of right foot R60.0 3. Pain in right foot M79.671 Plan: - Initial Office Visit - Etiology and treatment options were discussed with the patient. - XR taken and reviewed with the patient - Rx: Medrol dose iva followed by Mobic - Rx: Mobic, take once daily after finished with medrol dose iva - Dispensed pneumatic walking boot. Okay to be WBAT while in this boot. Okay to remove while at rest. Do not drive while in the boot. - Recommend RICE therapy - If not improved or worse in 2 weeks, will consider further imaging such as MRI RTC 2 weeks, Amie Allan DPM PGY-3 I have seen and evaluated the patient and discussed the case with the resident physician. I agree with the assessment and plan as documented in the resident?s note. Miguel Lyn DPM, [facility] [address] [place] [address] W [email or web address] [email or web address] note* Diagnosis Onset Date Resolution Status Gout acute Left foot pain acute Hypothyroidism (acquired) mitesh gary BPH (benign prostatic hyperplasia) acute Epigastric abdominal pain [place] GERD (gastroesophageal reflux disease) acute Hypertension chronic Hypothyroidism (acquired) mitesh gary [facility] Work Phone: Evaluation note* Diagnosis Encounter for long-term (current) use of medications- Primary Encounter for long-term (current) use of other medications Hypercholesteremia Pure hypercholesterolemia Benign prostatic hyperplasia, unspecified whether lower urinary tract symptoms present Idiopathic gout, unspecified chronicity, unspecified site Hypothyroidism due to acquired atrophy of thyroid Dyspnea, unspecified type Medicare annual wellness visit, subsequent Body mass index (BMI) 30.0-30.9, adult [facility] Diagnosis Chest pain, exertional- Primary Chest pain, unspecified VERDUZCO (dyspnea on exertion) Other dyspnea and respiratory abnormality Stage 3a chronic kidney disease (HCC) Body mass index (BMI) 30.0-30.9, adult [facility]* Diagnosis Onset Date Resolution Status Gout acute Hypertension chronic [facility] Work Phone: Evaluation note* Diagnosis Onset Date Resolution Status Gout acute Hypertension chronic Maxillary sinusitis, acute a cute Hypertension chronic BPH (benign prostatic hyperplasia) acute GERD (gastroesophageal reflux disease) acute Hypothyroidism (acquired) ch cookie [facility] Work Phone: Evaluation note* Diagnosis Onset Date Resolution Status Neck pain acute Sebaceous cyst acute Neck pain acute Sebaceous cyst acute [facility] Work Phone: Reason for referral (narrative)* Tests/Procedures (Routine) - Authorized Specialty Diagnoses / Procedures Referred By Contac t Referred To Contact Diagnoses Dyspnea, unspecified type Bernarda Moses MD [address] [place] [address] [place] [address] Referral ID Status Reason Start Date Expiration Date V isits Requested Visits Authorized [id number] Authorized 06/24/2022 06/24/2023 3 3 Comments CXR: PA and lat [facility] for referral (narrative)* Tests/Procedures (Routine) - Pending Review Specialty Diagnoses / Procedures Referred By Contact Referred To Contact Cardiovascular Testing Diagnoses Chest pain, exertional VERDUZCO (dyspnea on exertion) Bernarda Moses MD [address] [place] [address] [place] [address] [facility] CARD NON INVASIVE [address] [place] [address] [place] [address] Referral ID Status Reason Start Date Expiration Date V isits Requested Visits Authorized [id number] Pending Review 07/22/2022 07/22/2023 1 1 Scheduling Instructions WHY THIS TEST IS DONE: This test is designed to determine the presence or absence of heart disease and to determine the function of the heart. HOW THIS TEST IS DONE: Ultrasound imaging of your heart is done before and after exercise. If you are unable to exercise, you may be given a medication that will mimic the effects of exercise on your heart. HOW TO PREPARE FOR THIS TEST: 1. Do not eat, smoke or drink anything except water for three hours before the test. 2. Wear comfortable, light, loose clothing and walking or tennis shoes. (No high heels or sandals). 3. Take your medicine as prescribed by your doctor with two exceptions: 1-If you take a water pill, do not take it the morning of the test. 2-If you take medicine for diabetes, get specific instructions from the doctor that manages your diabetes. 4. Bring a list of all your current medication with you at the time of the test. 5. This test takes approximately 1 hour. INFORMATION ABOUT CARDIAC STRESS TESTS Cardiac stress tests involve risks and possible complications or injury. You have the right to be informed of such risks as well as the nature of the test. If you have any questions, you are encouraged and expected to ask your physician or the staff lens mold setter when you arrive for your test.. EXERCISE TREADMILL STRESS TESTING (stress echocardiogram, exercise treadmill, microvolt T wave alternans stress testing) During these tests, you will walk on a treadmill where the speed and grade will increase at regular intervals. The goal is to increase your heart rate until a predetermined target heart rate is achieved or until fatigue and/or other symptoms prevent further exercise. An echocardiogram or nuclear imaging may also be performed. If so, baseline imaging will be performed before the exercise begins and additional imaging is performed after the exercise. RISKS: There is some level of risk anytime stress is put on your heart. The risks include abnormal heartbeats, abnormal blood pressure and, very rarely, a heart attack. As a precaution, your pulse, blood pressure and an electrocardiogram will be monitored before, during and after the test. You need to inform the doctor or nurse of any chest pain, shortness of breath, lightheadedness, or other symptoms you experience during the test, or if you feel you cannot continue with the test. After the exercise, you will be monitored during a recovery phase until your heart rate and blood pressure return to near your pre-stress test values. When you arrive for your tests, you will be asked to sign an authorization form which indicates that: (1) you have read and understand the information provided; (2) you have had a chance to ask questions; (3) you have received all of the information you desire concerning the testing; (4) you authorize the performance of the test; and (5) you received a copy of this form. SCHEDULING INSTRUCTIONS: You may schedule this test using MyChart Ticketing or by calling the [facility] at [phone] (BEAT). If you have any questions, please call [facility]. If you are unable to keep this appointment, please notify [facility]. You may cancel your appointment using [employer]inks [employer] or by phone. Please plan to arrive approximately 15 minutes early for Registration. Your appointment time may include time for preparation. Please be prompt! Thank you for your cooperation. Question Answer Clinical condition needing evaluation exertional chest pain * Tests/Procedures (Routine) - Authorized Specialty Diagnoses / Procedures Referred By Contac t Referred To Contact Diagnoses Chest pain, exertional VERDUZCO (dyspnea on exertion) Bernarda Moses MD [address] [place] [address] [place] [address] Referral ID Status Reason Start Date Expiration Date V isits Requested Visits Authorized [id number] Authorized 07/22/2022 07/22/2023 3 3 Comments [facility]No reason for referral information availableDavenport Center Medical Services Work Phone: Summary Purpose Family History No Family History Records Found Relationship Condition Age at Onset Recorded Date/T george Not Specified Malignant neoplasm of lung Unknown Hypertension Unknown Disorder of thyroid Unknown Advance Directives No Advanced Directives Records Found Advance Directive Response Recorded Date/ Time Living Will No November 10 9:44pm Power of Rod Mill Tender No November 10, 2020 9:44pm Advance Directive Response Recorded Date/ Time Living Will No November 10 8:44pm Power of Rod Mill Tender No November 10, 2020 8:44pm Chief Complaint and Reason for Visit Chief Complaint Gout Burning & pain while swallowing Reason for Visit Gout Left foot pain Hypothyroidism (acquired) BPH (benign prostatic hyperplasia) Epigastric abdominal pain GERD (gastroesophageal reflux disease) Hypertension Hypothyroidism (acquired) Chief Complaint medication refills Reason for Visit Gout Hypertension Chief Complaint medication refills Sinus infection & Cough PSA,TSH Reason for Visit Gout Hypertension Maxillary sinusitis, acute Hypertension BPH (benign prostatic hyperplasia) GERD (gastroesophageal reflux disease) Hypothyroidism (acquired) Chief Complaint Lump/mass neck area F/up W/lump on neck SOB Reason for Visit Neck pain Sebaceous cyst Neck pain Sebaceous cyst Chief Complaint Admit Date Neck pain/back pain January 29, 2025 4:39pm LEFT ANKLE May 25, 2025 9: 19am RM 4 May 25, 2025 9: 41am Reason for Visit Admit Date Cervical muscle strain January 29, 2025 4:3 9pm Torticollis, acquired January 29, 2025 4:39 pm Additional Source Comments (unrecognized sect ion and content) No Status Records FoundNo Status Records FoundNo Status Records FoundNo Status Records FoundNo Status Records FoundNo Status Records FoundNo Status Records FoundNo Status Records FoundNo Status Records FoundNo Status Records Found INFORMATION SOURCE (unrecogn ized section and content) DATE CREATED AUTHOR 03/22/2018 [facility] DATE CREATED AUTHOR AUTHOR'S ORGANIZ ATION 09/18/2018 [facility] DATE CREATED AUTHOR AUTHOR'S ORGANIZ ATION 01/17/2021 [facility] DATE CREATED AUTHOR AUTHOR'S ORGANIZ ATION 10/22/2021 [facility] DATE CREATED AUTHOR AUTHOR'S ORGANIZ ATION 07/21/2022 [facility] DATE CREATED AUTHOR AUTHOR'S ORGANIZ ATION 11/27/2023 [facility] DATE CREATED AUTHOR AUTHOR'S ORGANIZ ATION 07/16/2024 [facility] DATE CREATED AUTHOR AUTHOR'S ORGANIZ ATION 02/10/2025 [facility] DATE CREATED AUTHOR AUTHOR'S ORGANIZ ATION 05/07/2025 [facility] DATE CREATED AUTHOR AUTHOR'S ORGANIZ ATION 05/26/2025 [facility] Goals (unrecognized section and content) Goals may be documented in a n alternate sectionGoals may be documented in an alternate sectionGoals may be documented in an alternate sectionGoals may be documented in an alternate sectionGoals may be documented in an alternate sectionGoals may be documented in an alternate section Reason for Visit (unrecogniz ed section and content) Reason Comments Medicare Wellness Reason Onset Date Comments Medical Record Review 07/13/2022 Reason Comments Shortness of breath Reason Onset Date Comments Left Message To Call Back 11/25/2023 Care Teams (unrecognized sec tion and content) Lumber Straightened Relationship Specialty Start Date End Date Surso, Bernarda, MD [address] [facility] [facility] [place] [address] PCP - General Family Medicine 09/08/21 Lumber Straightened Relationship Specialty Start Date End Date Bernarda Moses MD [address] [place] [address] [place] [address] PCP - General Family Medicine 09/08/21 Lumber Straightened Relationship Specialty Start Date End Date Bernarda Moses MD [address] [place] [address] [place] [address] PCP - General Family Medicine 09/08/21 Lumber Straightened Relationship Specialty Start Date End Date Bernarda Moses MD [address] [place] [address] [place] [address] PCP - General Family Medicine 09/08/21 Team Status: Active Member Role Status Dates Dr. Mini Alejandro MD Primary Care Provider Active Team Status: Inactive Member Role Status Dates Dr. Mini Alejandro MD Primary Care Provider, Refer ring Provider Active Amina Jaimes BUSINESS DEVELOPMENT EXECUTIVE, BUSINESS DEVELOPMENT EXECUTIVE-C Attending Provider Active Team Status: Inactive Member Role Status Dates Dr. Mini Alejandro MD Primary Care Provider Active Amnia Jaimes BUSINESS DEVELOPMENT EXECUTIVE, BUSINESS DEVELOPMENT EXECUTIVE-C Attending Provider Active Team Status: Active Member Role Status Dates Amina Jaimes BUSINESS DEVELOPMENT EXECUTIVE, BUSINESS DEVELOPMENT EXECUTIVE-C Primary Care Provider Active Team Status: Inactive Member Role Status Dates Amina Jaimes BUSINESS DEVELOPMENT EXECUTIVE, BUSINESS DEVELOPMENT EXECUTIVE-C Primary Care Pr ovider, Attending Provider, Referring Provider Active Team Status: Inactive Member Role Status Dates Amina Jaimes BUSINESS DEVELOPMENT EXECUTIVE, BUSINESS DEVELOPMENT EXECUTIVE-C Primary Care Provider Active Dr. Oskar Galvan MD Attending Provider, Referrin g Provider Active Lumber Straightened Relationship Specialty Start Date End Date Oskar Galvan MD PCP - General Family Medicine 08/11/11 Fabian Mansfield MD Primary Staff Physician Cardiology 12/13/18 Team Status: Active Member Role/Relationship Status Dates Amina Boldenson BUSINESS DEVELOPMENT EXECUTIVE, BUSINESS DEVELOPMENT EXECUTIVE-C Primary Care Provider Active Team Status: Inactive Member Role/Relationship Status Dates Amina Boldenson BUSINESS DEVELOPMENT EXECUTIVE, BUSINESS DEVELOPMENT EXECUTIVE-C Primary Care Provider Active Start: January 29, 2025 End: January 29, 2025 Aminajamar Jaimes BUSINESS DEVELOPMENT EXECUTIVE, BUSINESS DEVELOPMENT EXECUTIVE-C Attending Provider Active Start: January 29, 2025 End: January 29, 2025 Amina Jaimes BUSINESS DEVELOPMENT EXECUTIVE, BUSINESS DEVELOPMENT EXECUTIVE-C Referring Provider Active Start: January 29, 2025 End: January 29, 2025 Team Status: Active Member Role/Relationship Status Dates Aminajamar BoldenJaimes BUSINESS DEVELOPMENT EXECUTIVE, BUSINESS DEVELOPMENT EXECUTIVE-C Primary Care Provider Active Start: May 25, 2025 Amina Theodore BUSINESS DEVELOPMENT EXECUTIVE, BUSINESS DEVELOPMENT EXECUTIVE-C Referring Provider Active Start: May 25, 2025 Dr. Oskar Madison DO Attending Provider Active Start: May 25, 2025 Team Status: Inactive Member Role/Relationship Status Dates Amina Theodore BUSINESS DEVELOPMENT EXECUTIVE, BUSINESS DEVELOPMENT EXECUTIVE-C Primary Care Provider Active Start: May 25, 2025 End: May 25, 2025 Dr. Yobani Garcia MD Attending Provider Active S tart: May 25, 2025 End: May 25, 2025 Team Status: Inactive Member Role/Relationship Status Dates Aminajamar BoldenJaimes BUSINESS DEVELOPMENT EXECUTIVE, BUSINESS DEVELOPMENT EXECUTIVE-C Primary Care Provider Active Start: May 25, 2025 End: May 25, 2025 Aminajamar BoldenJaimes BUSINESS DEVELOPMENT EXECUTIVE, BUSINESS DEVELOPMENT EXECUTIVE-C Referring Provider Active Start: May 25, 2025 End: May 25, 2025 Dr. Oskar Madison DO Attending Provider Active Start: May 25, 2025 End: May 25, 2025 Source Comments (unrecognize d section and content) In the event this informatio n is protected by the Federal Confidentiality of Alcohol and Drug Abuse Patient Records regulations: The Federal rules restrict any use of the information to criminally investigate or prosecute any alcohol or drug abuse patient.[facility] Center FOR RECORDS PERTAINING TO PATIENTS WHO ARE OR HAVE BEEN ENROLLED IN A CHEMICAL DEPENDENCY/SUBSTANCEABUSE PROGRAM, SOME INFORMATION MAY BE OMITTED. This clinical summary was aggregated from multiple sources. Caution should be exercised in using it in the provision of clinical care. This summary normalizes information from multiple sources, and as a consequence, information in this document may materially change the coding, format and clinical context of patient data. In addition, data may be omitted in some cases. CLINICAL DECISIONS SHOULD BE BASED ON THE PRIMARY CLINICAL RECORDS. [facility], [facility]. provides no warranty or guarantee of the accuracy or completeness of information in this document.
[2025-06-02 19:18] LABS: Anion Gap 13 (5-15); BUN 17 mg/dL (4-19); BUN/Creat Ratio 12.3 RATIO (10-20); Calcium,Total 8.8 mg/dL (7.6-11.0); Carbon Dioxide 23.8 mmol/L (21.0-32.0); Chloride 103 mmol/L (98-108); Estimated Creatinine Clearance 70.58 ml/min (50-250); Glucose 134 mg/dL (70-99); Potassium 3.8 mmol/L (3.3-5.1)
[2025-06-02 19:31] LABS: Troponin T High Sensitivity 16 ng/L (<=22)
[2025-06-02 19:57] VITALS: BP 136/90; PULSE 75; RESP 19; O2SAT 96
--- NOTE | 2025-06-02 20:30 | HP.PCM.HOS_ITS ---
HPI - General General Date of Admission: 06/02/25 Date of Service: 06/02/25 Chief Complaint: Syncopal event. HPI Narrative The patient is a 69 y/o M w/ PMHx: CKD stage III unclear subtype or GFR trending, HTN, HLD, GERD, Hypothyroidism, BPH with obstructive pathology, Gout who presents to [facility] ED with [place] with his elevated been there for at least an hour sitting on a bridge and he reported not feeling well with onset of lightheadedness and dizziness and then passed out lasting approximately 30 seconds with diaphoresis prompting EMS call and by the time they arrived and evaluated and he was awake, alert with stable vital signs noting a similar episode approximately 1 year previous to this with persistent chronic right-sided headaches over the last year unchanged from prior with family noting that when he had a syncopal event he had no seizure-like activity but did have some gurgling type respirations otherwise no distress. He does report chronic R sided headaches that have been intermittent x 1 year, more ongoing x 1 year but notable over the last month. He denies any light or sound sensitivity with the headache and states primarily starts on his right temporal and goes down and into his neck almost as if it is a tension headache in his description describing it is mild. He had this approximately 1 year prior and had similar respiratory description per his family and loss of consciousness lasted approximate 30-60 seconds.he did go to another facility and had a full cardiac workup including outside Holter monitoring assessment that was unremarkable. He notes previous to this event he had been in his normal state of health aside from persistent right sided headaches. Workup in the ED included T97.8, heart rate 70, BP 136/88, respiratory rate 22, 95% on room air, CBC with WC 6.6, hemoglobin 16.2, platelet 185 without marked shift, BMP with BUN/creatinine 17/1.34, GFR 58, glucose 134, troponin 16, CT brain with no acute intracranial findings with age-related involutional changes, intracranial atherosclerosis mild microvascular ischemic changes, chest x-ray with no acute Findings, EKG with SR without acute evidence of ischemia. In the ED patient ministered maintenance IV fluids. [facility] Medical History Pityriasis rosea Chronic kidney disease (CKD), stage III (moderate) Wears glasses Non-smoker History of echocardiogram Lipoma of neck Hyperlipidemia Essential hypertension BPH (benign prostatic hyperplasia) GERD (gastroesophageal reflux disease) Hypothyroid Home Medications ?Medication ?Instructions ?Recorded ?Last Taken ?Type levothyroxine 150 mcg tablet 150 mcg PO DAILY #90 tabs 04/21/24 Unknown Rx Allergy/AdvReac Type Severity Reaction Status Date / Time No Known Allergies Allergy Verified 06/02/25 17:59 Family History (Updated 06/02/25 @ 20:[address] 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 HEENT: + Lightheadedness, dizziness, syncopal event. Eyes: No visual loss, blurred vision, double vision or yellow sclerae. Ears, Nose, Throat: No hearing loss, sneezing, congestion, runny nose or sore throat. SKIN: No rash or itching, lesions, wounds. CARDIOVASCULAR: + Lightheadedness, dizziness, syncopal event. No chest pain, chest pressure or chest discomfort, palpitations, edema, orthopnea. RESPIRATORY: No shortness of breath, cough or sputum, wheezing, hemoptysis. GASTROINTESTINAL: No anorexia, nausea, vomiting or diarrhea, abdominal pain, melena, BRBPR. GENITOURINARY: No dysuria, frequency, urgency or retention. NEUROLOGICAL: + Chronic headaches, lightheadedness, dizziness with syncopal event. No paralysis, ataxia, numbness or tingling in the extremities, focal weakness, change in bowel or bladder control, seizure. MUSCULOSKELETAL: + muscle, back pain, joint pain or stiffness. HEMATOLOGIC: No anemia, bleeding or bruising. LYMPHATICS: No enlarged nodes. No history of splenectomy. PSYCHIATRIC: No history of depression or anxiety. ENDOCRINOLOGIC: No reports of sweating, cold or heat intolerance. No polyuria or polydipsia. ALLERGIES: No history of asthma, hives, eczema or rhinitis. Vital Signs Vital Signs Vital Signs: 06/02/25 17:59 06/02/25 18:03 Temperature 97.8 F Temperature Source Oral Pulse Rate 70 Respiratory Rate 22 H Respiratory Effort Normal Non-Labored Blood Pressure 136/88 H Blood Pressure Mean 104 Pulse Ox 95 Oxygen Delivery Method Room Air Weight Weight: 241 lb 13.553 oz Body Mass Index (BMI) 30.2 Physical Exam Narrative Physical Examination: General: Awake, alert, oriented x 3 and cooperative, seated upright in the ED bed, notes persistent right-sided temporal to lateral neck headache/tension headache. Skin: Normal color, normal turgor, no icterus, no cyanosis except occasional stage ecchymoses, abrasion. HEENT: AT/NC, EOMI, PERRLA, MMM, no carotid bruits or JVD noted. Lungs: Mildly diminished, greater bases, proper effort, no rales, ronchi or wheezing. Heart: Regular rate and rhythm; no gallop, rub audible. Abdomen: Soft, NTTP, ND, mildly hyperactive BS, no appreciated HSM. Extremities: No cyanosis, no clubbing, no significant distal edema noted. Neurological: Patient awake, alert, oriented as noted, cognitive function intact; pupils equally reactive to light and accommodation, cranial nerves grossly normal, moving all 4 extremities, no focal deficits, strength mildly globally decreased. Psychiatric: Affect appears mildly fatigued otherwise normal, no acute evidence of depressive or anxiety feelings. Results Lab / Micro Data 06/02/25 18:03 06/02/25 18:03 Labs: Laboratory Results - last 24 hr 06/02/25 18:03: WBC 6.6, RBC 5.31, Hgb 16.2, Hct 46.6, MCV 87.8, MCH 30.5, MCHC 34.8, RDW Std Deviation 44.0 H, RDW Coeff of Veena 13.7, Plt Count 185, MPV 11.1, Immature Gran % (Auto) 0.300, Neut % (Auto) 58.9, Lymph % (Auto) 20.7, [place] % (Auto) 12.8 H, Eos % (Auto) 5.9 H, Baso % (Auto) 1.4 H, Absolute Neuts (auto) 3.9, Absolute Lymphs (auto) 1.36, Nucleated RBC % 0, Sodium 139, Potassium 3.8, Chloride 103, Carbon Dioxide 23.8, Anion Gap 13, BUN 17, Creatinine 1.34 H, Estim Creat Clear Calc 70.58, Est GFR (MDRD) Non-Af 58 L, BUN/Creatinine Ratio 12.3, Glucose 134 H, Calcium 8.8, Troponin T High Sens 16 Imaging Radiology Impression Brain CT 06/02/25 18:43 IMPRESSION: No noncontrast CT evidence of acute intracranial abnormality. No evidence of acute territorial major vessel infarct, mass effect or acute intracranial hemorrhage. - Age related involutional changes again noted. - Intracranial atherosclerosis and mild microvascular ischemic changes again noted. - Other findings discussed above. Reading Location: [id number] Chest X-Ray 06/02/25 18:50 IMPRESSION: No acute pulmonary infiltrate seen. - Other findings discussed above. Reading Location: [id number] Assessment & Plan Assessment/Plan (1) Syncope: PLAN: Plan The patient is a 69 y/o M w/ PMHx: CKD stage III unclear subtype or GFR trending, HTN, HLD, GERD, Hypothyroidism, BPH with obstructive pathology, Gout who presents to [facility] ED with [place]opal [place] been there for at least an hour sitting on a bridge and he reported not feeling well with onset of lightheadedness and dizziness and then passed out lasting approximately 30 seconds with diaphoresis prompting EMS call and by the time they arrived and evaluated and he was awake, alert with stable vital signs noting a similar episode approximately 1 year previous to this with persistent chronic right-sided headaches over the last year unchanged from prior with family noting that when he had a syncopal event he had no seizure-like activity but did have some gurgling type respirations otherwise no distress. #1. Syncopal Event with persistent chronic headaches becoming more frequent: Unclear etiology, EKG in ED w/ sinus rhythm without evidence of acute ischemia, CXR w/ no acute cardiopulmonary findings, CT head with no acute findings, initial trop normal. Pending CTA head and neck in the ED and if no acute concerning findings that require transfer would proceed with admission to [facility] PCU, place on a monitored bed to assure no acute myocardial infarction with serial cardiac enzymes and EKGs. Will maintain on fall precautions, obtain admission orthostatic and AM orthostatic VS and increase hydration if appropriate. Will obtain ECHO and carotid ultrasound. PT/OT consultation to ascertain stability and discharge needs. #2. Hyperglycemia, mild: Patient with glucose 134, [place] that certainly could be recent intake, will obtain hemoglobin A1c be cautious. #3. Hypertension: Per current list on a regimen, clarified to be certain, will add if appropriate, IV hydralazine in the interim. #4. Hyperlipidemia: Not on regimen, clarified to be certain, encourage continued follow-up outpatient with primary care physician. #5. Hypothyroidism: Will continue patient on levothyroxine regimen, TSH pending. #6. Chronic Kidney Disease Stage III, unclear subtype or GFR trending: Admission BUN/Cr 17/1.34, GFR 58, baseline renal function primarily 1.3-1.6 however most recently 07/26/2024 noted to be 1.79, seems higher than previous, repeat BMP in AM. #7. BPH with obstructive pathology: Noted history, not currently on medications, clarified to be certain, monitor for retention. #8. GERD: Not on regimen, will have as needed Mylanta for symptoms. #9. DVT prophylaxis: Lovenox. #10. CODE status: Full Code status. Charges/Coding Visit Charges Inpatient E&M: 45014 Init Hosp L2
--- NOTE | 2025-06-02 20:34 | CT_ITS ---
PROCEDURE: CTA HEAD AND NECK W/ CONTRAST 06/02/2025 REASON FOR EXAM: HEAD AND NECK PAIN. Syncopal episode. History of lipoma removed from neck. TECHNIQUE: Procedure Code: [id number].HDNCK Modality: CT Procedure: CTA HEAD AND NECK W/ CONTRAST Axial CTA images of the head and neck performed with intravenous contrast. MIP reconstructed images were created and reviewed. Note: Per PQRS, the description of internal carotid artery percent stenosis, including 0 percent or normal exam, is based on [place] Symptomatic Carotid Endarterectomy Trial (NASCET) criteria. CONTRAST: Isovue 370 VOLUME: 100 mL One or more dose reduction techniques were used (e.g., Automated exposure control, adjustment of the mA and/or kV according to patient size, use of iterative reconstruction technique). RADIATION DOSE SUMMARY: CTDlvol: 24.91, 18.64 mGy DLP: 810 mGycm FINDINGS: CTA HEAD: INTERNAL CAROTID ARTERIES No significant stenosis. No occlusion. No aneurysm. Mild carotid siphon calcification bilaterally. ANTERIOR CEREBRAL ARTERIES No significant stenosis on the left. No occlusion. No aneurysm. Areas of multifocal stenosis in the right A2 segment, which is unchanged. MIDDLE CEREBRAL ARTERIES No significant stenosis on the right. No occlusion. No aneurysm. Approximately 45-50% focal stenosis again seen in the distal left M1 segment, without significant interval change. POSTERIOR CEREBRAL ARTERIES No significant stenosis. No occlusion. No aneurysm. BASILAR ARTERY No significant stenosis. No occlusion. No aneurysm. VERTEBRAL ARTERIES No significant stenosis. No dissection or occlusion. VENOUS STRUCTURES Patent. BONES No acute osseous abnormality. CTA NECK: COMMON CAROTID ARTERIES No significant stenosis. No dissection or occlusion. INTERNAL CAROTID ARTERIES No stenosis by NASCET criteria. No dissection or occlusion. VERTEBRAL ARTERIES No significant stenosis. No dissection or occlusion. SOFT TISSUES No acute finding. No masses or lymphadenopathy. BONES No acute osseous abnormality. Degenerative changes of the spine. CT/CTA Head AND Neck W/ Contrast IMPRESSION: 1. Unchanged areas of stenosis in the A2 segment of the right PARVIZ and distal M 1 segment of the left MCA. 2. Otherwise, no hemodynamically significant stenosis within the head or neck. No evidence of intracranial aneurysm. Reading Location: [id number]
[2025-06-02 21:00] VITALS: BP 133/93; PULSE 72; RESP 15; O2SAT 99
[2025-06-02 21:32] LABS: Magnesium 2.1 mg/dL (1.5-2.2)
[2025-06-02 22:08] LABS: Troponin T High Sens 2 HR 13 ng/L (<=22)
[2025-06-02 22:45] VITALS: BP 150/95; PULSE 72; RESP 13; TEMP 36.9; O2SAT 97
--- OUTSIDE RECORDS SUMMARY | 2025-06-02 22:49 | XMS RPT_ITS | CCD ---
Author Organization [facility] Inform ion Partnership [facility] Care Team Providers Care Otr Flatbed Driver Name Role Phone MARYAM MEDINA Unavailable Unavailable MARYAM MEDINA Unavailable Unavailable LAFSHANTANU LUKE Unavailable Unavailable DONAL LUKE Unavailable Unavailable BASDC SARKARI N Unavailable Unavailable JIM ELIZONDO Unavailable Unavailable Bernarda Moses MD Primary Care Provider [phone] Bernarda Moses Referring Unavailable Bernarda Moses Attending Unavailable Bernarda Moses Primary Care Unavailable WILBERTO BLAKE MD Attending Unavailable OSKAR GALVAN Primary Care Unavailable OSKAR GALVAN Primary Care Unavailable PERCY PORRAS PRIYANKA Attending Unavailable KELLIE RODRIGUEZ DO Admitting Unavailable KRISTAN PORRAS, DAVE Consulting Unavailable STEPHANI PORRAS, ISAURO Consulting Unavailable Unavailable Primary Care Provider UnavailOskar Roth MD Primary Care Provider [phone] Fabian Mansfield MD Unavailable AMINA JAIMES Referring Unavailable OSKAR GALVAN Primary Care Unavailable Theodore [employer], Amina Primary Care Provider [phone] Theodore [employer]GER-CAmina Attending Provider [phone] Theodore [employer], Amina Referring Provider [phone] Dr. Oskar Madison DO Attending Provider Dr. Yobani Garcia MD Attending Provider Theodore [employer]GER, Amina Primary Care Unavailable Oskar Madison Attending Unavailable Theodore [employer] MANAGER, Amina Referring Unavailable Theodore [employer] MANAGER, Amina Primary Care Unavailable Yobani Garcia Attending Unavailable Theodore [employer] MANAGER, Amina Primary Care Unavailable Jaimes [employer]NAGER, Amina Referring Unavailable Theodore [employer]NAGER, Amina Attending Unavailable Medications Current Medications Medication [...] 1:00am September 04, 2021 5:11pm On Hold: [place] per pt d/t cost azithromycin 250 mg [...] On Hold: DC per pt d/t cost multivitamin,py-gwea-xghsqgl s (4 sources) Start: 11-21-2020 End: 04-23-2021 take 1 tablet by mouth once daily multivitamin,qw-iego-mwaolujb Discontinued 1 TABLET PO DAILY November 21, 2020 2:09pm April 23, 2021 10:50am Start: 11-21-2020 End: 04-23-2021 take 1 tablet by mouth once daily multivitamin,sj-bxfi-xhiwzhvr Discontinu ed 1 TABLET PO DAILY November 21, 2020 1:00am April 23, 2021 10:50am Start: 11-21-2020 End: 04-23-2021 take 1 tablet by mouth once daily multivitamin,db-jsbo-uigevkbu Discontinu ed 1 TABLET PO DAILY November 21, 2020 12:00am April 23, 2021 9:50am Multivitamin,Ag-Fguq-Xdflbzr s (Complete Multivitamin) tablet (2 sources) Start: 11-21-2020 End: 04-23-2021 Multivitamin,Mv-Fost-Euohkyi s (Complete Multivitamin) tablet Discontinued 1 {tbl} [...] 2020 1:00am September 04, 2021 5:11pm thyroid (shelter) 90 mg oral tablet (20 sources) Start: 12-09-2018 End: 05-06-2020 take 1 tablet by mouth once daily Thyroid (Pork) ([place] Thyroid) 90 mg tablet Discontinued 90 mg PO DAILY 90 3 February 13, 2019 2:21pm May 06, 2020 10:22am Start: 10-20-2018 End: 05-06-2020 Thyroid (Pork) ([place] Thyro id) 60 mg tablet Discontinued 60 mg PO DAILY 30 October 20, 2018 1:00am May 06, 2020 10:22am + ARMOUR 15=75MG PO QD Start: 10-20-2018 End: 05-06-2020 take 1 mg by mouth once daily Thyroid (Pork) ([place] T hyroid) 15 mg tablet Discontinued 15 mg PO DAILY 30 October 20, 2018 1:00am May 06, 2020 10:22am +60 MG =75 MG ORALLY QD Start: 09-06-2018 End: 10-20-2018 take 1 tablet by mouth once daily Thyroid (Pork) ([place] Thyroid) 30 mg tablet Discontinued 60 mg [...] sources) Patient encounter status; 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 COMPARISON: No relevant prior studies available. FINDINGS: BONES/JOINTS: Unremarkable. No dislocation. No acute fracture. SOFT TISSUES: Soft tissue swelling. RAD/Ankle min 3 Views IMPRESSION: 1. No acute fracture. 2. Soft tissue swelling. Reading Location: [facility] CC: MARIESLA Jaimes; Dr. Oskar Madison DO Paddock Judge: Signed Normal [facility] Orthopedic Visit Reporton Orthopedic Visit Report [facility] [address] [place] [address] [address] [place] [id number] OFFICE VISIT Date of Service: 05/25/25 MR#: [id number] Acct: [id number] Name: ARTURO SNOW Rep #: [id number] : [id number] Provider: Dr. 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 Oskar Madison, DO 05/25/25 0927. Part of today???s visit was documented by Nga LYLES, acting as scribe. ARTURO SNWO is a 69 year old M here [...] that I (more content not included)... Normal [facility] CBC (INCLUDES DIFF/PLT)on Basophils (Bld) [#/Vol] 0.059 10*3/uL Normal 0-200 [facility] Comment on above: Performed By: #### 7 600, 6399, 5363, 52415 #### [facility] [place] [address] Staff Midwife: Wero Conn MD Basophils/100 WBC (Bld) 0.7 % Normal [facility] Comment on above: Performed By: #### 7 600, 6399, 5363, 20165 #### [facility] [place] [address] Staff Midwife: Wero Conn MD Eosinophils (Bld) [#/Vol] 0.302 10*3/uL Normal 15-500 [facility] Comment on above: Performed By: #### 7 600, 6399, 5363, 06249 #### [facility] [place] [address] Staff Midwife: Wero Conn MD Eosinophils/100 WBC (Bld) 3.6 % Normal [facility] Comment on above: Performed By: #### 7 600, 6399, 5363, 64546 #### [facility] of [place] [address] Staff Midwife: Wero Conn MD Erythrocyte distribution width (RBC) [Ratio] 13.7 % Normal 11.0-15.0 [facility] Comment on above: Performed By: #### 7 600, 6399, 5363, 04746 #### [facility] of [place] [address] Staff Midwife: Wero Conn MD Hematocrit (Bld) [Volume fraction] 51.1 % High 38.5-50.0 [facility] Comment on above: Performed By: #### 7 600, 6399, 5363, 33545 #### [facility] of [place] [address] Staff Midwife: Wero Conn MD Hemoglobin (Bld) [Mass/Vol] 16.9 g/dL Normal 13.2-17.1 [facility] Comment on above: Performed By: #### 7 600, 6399, 5363, 69461 #### [facility] of [place] [address] Staff Midwife: Wero Conn MD Lymphocytes (Bld) [#/Vol] 1.21 10*3/uL Normal 850-3900 [facility] Comment on above: Performed By: #### 7 600, 6399, 5363, 01727 #### [facility] of [place] [address] Staff Midwife: Wero Conn MD Lymphocytes/100 WBC (Bld) 14.4 % Normal [facility] Comment on above: Performed By: #### 7 600, 6399, 5363, 45924 #### [facility] of [place] [address] Staff Midwife: Wero Conn MD MCH (RBC) [Entitic mass] 30.7 pg Normal 27.0-33.0 [facility] Comment on above: Performed By: #### 7 600, 6399, 5363, 24193 #### [facility] of [place] [address] Staff Midwife: Wero Conn MD MCHC (RBC) [Mass/Vol] 33.1 [...] Performed By: #### 7 600, 6399, 5363, 89703 #### [facility] of [place] [address] Staff Midwife: Wero Conn MD MCV (RBC) [Entitic vol] 92.7 fL Normal 80.0-100.0 [facility] Comment on above: Performed By: #### 7 600, 6399, 5363, 03770 #### [facility] of [place] [address] Staff Midwife: Wero Conn MD Monocytes (Bld) [#/Vol] 0.773 10*3/uL Normal 200-950 [facility] Comment on above: Performed By: #### 7 600, 6399, 5363, 42941 #### [facility] of [place] [address] Staff Midwife: Wero Conn MD Monocytes/100 WBC (Bld) 9.2 % Normal [facility] Comment on above: Performed By: #### 7 600, 6399, 5363, 19292 #### [facility] of [place] [address] Staff Midwife: Wero Conn MD Neutrophils (Bld) [#/Vol] 6.056 10*3/uL Normal 0165-2248 [facility] Comment on above: Performed By: #### 7 600, 6399, 5363, 98189 #### [facility] of [address], [address] [place] [address] Staff Midwife: Wero Conn MD Neutrophils/100 WBC (Bld) 72.1 % Normal [facility] Comment on above: Performed By: #### 7 600, 6399, 5363, 62354 #### [facility] of [place] [address] Staff Midwife: Wero Conn MD Platelet mean volume (Bld) [Entitic vol] 10.9 fL Normal 7.5-12.5 [facility] Comment on above: Performed By: #### 7 600, 6399, 5363, 85246 #### [facility] of [place] [address] Staff Midwife: Wero Conn MD Platelets (Bld) [#/Vol] 203 10*3/uL Normal 140-400 [facility] Comment on above: Performed By: #### 7 600, 6399, 5363, 79745 #### [facility] of [place] [address] Staff Midwife: Wero Conn MD RBC (Bld) [#/Vol] 5.51 10*6/uL Normal 4.20-5.80 [facility] Comment on above: Performed By: #### 7 600, 6399, 5363, 83508 #### [facility] [place] [address] Staff Midwife: Wero Conn MD WBC (Bld) [#/Vol] 8.4 10*3/uL Normal 3.8-10.8 [facility] Comment on above: Performed By: #### 7 600, 6399, 5363, 31365 #### [facility] of [place] [address] Staff Midwife: Wero Conn MD COMPREHENSIVE METABOLIC PANE [facility] 05-05-2025 Albumin [Mass/Vol] 4.4 g/dL Normal 3.6-5.1 [facility] Comment on above: Performed By: #### 7 600, 6399, 5363, 05589 #### [facility] of [address], [address] [place] [address] Staff Midwife: Wero Conn MD Albumin/Globulin [Mass ratio] 2.1 {ratio} Normal 1.0-2.5 [facility] Comment on above: Performed By: #### 7 600, 6399, 5363, 40842 #### [facility] of [address], [address] [place] [address] Staff Midwife: Wero Conn MD ALP [Catalytic activity/Vol] 70 U/L Normal 35-144 [facility] Comment on above: Performed By: #### 7 600, 6399, 5363, 26194 #### [facility] of [address], [address] [place] [address] Staff Midwife: Wero Conn MD ALT [Catalytic activity/Vol] 15 U/L Normal 9-46 [facility] Comment on above: Performed By: #### 7 600, 6399, 5363, 01051 #### [facility] of [address], [address] [place] [address] Staff Midwife: Wero Conn MD AST [Catalytic activity/Vol] 17 U/L Normal 10-35 [facility] Comment on above: Performed By: #### 7 600, 6399, 5363, 49028 #### [facility] of [address], [address] [place] [address] Staff Midwife: Wero Conn MD Bilirubin [Mass/Vol] 2.0 mg/dL High 0.2-1.2 [facility] Comment on above: Performed By: #### 7 600, 6399, 5363, 55170 #### [facility] of [address], [address] [place] [address] Staff Midwife: Wero Conn MD Calcium [Mass/Vol] 8.9 mg/dL Normal 8.6-10.3 [facility] Comment on above: Performed By: #### 7 600, 6399, 5363, 11609 #### [facility] of [address], [address] [place] [address] Staff Midwife: Wero Conn MD Chloride [Moles/Vol] 104 mmol/L Normal 98-110 [facility] Comment on above: Performed By: #### 7 600, 6399, 5363, 21557 #### [facility] of [address], [address] [place] [address] Staff Midwife: Wero Conn MD CO2 [Moles/Vol] 27 mmol/L Normal 20-32 [facility] Comment on above: Performed By: #### 7 600, 6399, 5363, 76162 #### [facility] of [place] [address] Staff Midwife: Wero Conn MD Creatinine [Mass/Vol] 1.36 mg/dL High 0.70-1.[address] [facility] Comment on above: Performed By: #### 7 600, 6399, 5363, 30916 #### [facility] of [place] [address] Staff Midwife: Wero Conn MD GFR/1.73 sq M.predicted among non-blacks MDRD (S/P/Bld) [Vol rate/Area] 57 mL/min/{1.73_m2} Low > OR = 60 [facility] Comment on above: Performed By: #### 7 600, 6399, 5363, 93293 #### [facility] [place] [address] Staff Midwife: Wero Conn MD Globulin (S) [Mass/Vol] 2.1 g/dL Normal 1.9-3.7 [facility] Comment on above: Performed By: #### 7 600, 6399, 5363, 01318 #### [facility] of [place] [address] Staff Midwife: Wero Conn MD Glucose [Mass/Vol] 90 mg/dL Normal 65-99 [facility] Comment on above: Result Comment: Fasting reference interval Performed By: #### 7 600, 6399, 5363, 45473 #### [facility] of [address] [place] [address] Staff Midwife: Wero Conn MD Potassium [Moles/Vol] 4.2 mmol/L Normal 3.5-5.[address] [facility] Comment on above: Performed By: #### 7 600, 6399, 5363, 35735 #### [facility] of [address], [address] [place] [address] Staff Midwife: Wero Conn MD Protein [Mass/Vol] 6.5 g/dL Normal 6.1-8.1 [facility] Comment on above: Performed By: #### 7 600, 6399, 5363, 31172 #### [facility] of [address], [address] [place] [address] Staff Midwife: Wero Conn MD Sodium [Moles/Vol] 140 mmol/L Normal 135-146 [facility] Comment on above: Performed By: #### 7 600, 6399, 5363, 15097 #### [facility] of [address], [address] [place] [address] Staff Midwife: Wero Conn MD Urea nitrogen [Mass/Vol] 15 mg/dL Normal 7-25 [facility] Comment on above: Performed By: #### 7 600, 6399, 5363, 29960 #### [facility] of [place] [address] Staff Midwife: Wero Conn MD Urea nitrogen/Creatinine [Mass ratio] 11 mg/mg Normal 6-22 [facility] Comment on above: Performed By: #### 7 600, 6399, 5363, 07172 #### [facility] of [address], [address] [place] [address] Staff Midwife: Wero Conn MD LIPID PANEL, [facility] Cholesterol [Mass/Vol] 207 mg/dL High <200 [facility] Comment on above: Order Comment: FASTI NG:YES FASTING: YES Performed By: #### 7 600, 6399, 5363, 49809 #### [facility] of [address], [address] [place] [address] Staff Midwife: Wero Conn MD Cholesterol in HDL [Mass/Vol] 36 mg/dL Low > OR = 40 [facility] Comment on above: Order Comment: FASTI NG:YES FASTING: YES Performed By: #### 7 600, 6399, 5363, 83869 #### [facility] [address], [address] [place] [address] Staff Midwife: Wero Conn MD Cholesterol in LDL [Mass/Vol] [...] LDL-C. Jame SS et al. SHARONA. 2013;310(19): 4196-2215 (http://education.[employer]/faq/IAL947) Performed By: #### 7 600, 6399, 5363, 91809 #### [facility] [address], [address] [place] [address] Staff Midwife: Wero Conn MD Cholesterol.total/Cho lesterol in HDL [Mass ratio] 5.8 {ratio} High <5.0 [facility] Comment on above: Order Comment: FASTI NG:YES FASTING: YES Performed By: #### 7 600, 6399, 5363, 06593 #### [facility] [address], [address] [place] [address] Staff Midwife: Wero Conn MD NON HDL CHOLESTEROL 171 mg/dL (calc) High <130 [facility] Comment on above: Order Comment: FASTI NG:YES FASTING: YES Result Comment: For patients with diabetes plus 1 major ASCVD risk factor, treating to a non-HDL-C goal of <100 mg/dL (LDL-C of <70 mg/dL) is considered a therapeutic option. Performed By: #### 7 600, 6399, 5363, 97475 #### [facility] [place] [address] Staff Midwife: Wero Conn MD Triglyceride [Mass/Vol] 124 mg/dL Normal <150 [facility] Comment on above: Order Comment: FASTI NG:YES FASTING: YES Performed By: #### 7 600, 6399, 5363, 93113 #### [facility] [place] [address] Staff Midwife: Wero Conn MD PSA, TOTALon 05-05-2025 PSA, [...] Performed By: #### 7 600, 6399, 5363, 45048 #### [facility] [place] [address] Staff Midwife: Wero Conn MD TSHon 05-05-2025 TSH Qn 3.59 m[IU]/L Normal 0.40-4.50 [facility] Comment on above: Performed By: #### 7 600, 6399, 5363, 42345 #### [facility] [place] [address] Staff Midwife: Wero Conn MD XR CERVICAL 4V AP/LAT/OBLon [...] are normal. IMPRESSION: Degenerative changes as described. [place]ock Judge: [facility] Transcribe Date/Time: Feb 08 2025 9:52P Dictated by : SUSAN PITTMAN MD This examination was interpreted and the report reviewed and electronically signed by: SUSAN PITTMAN MD on Feb 08 2025 9:52PM EST [id number] Normal [facility] XR LUMBAR PARS 4V AP/LAT/OBL X2on 02-05-2025 [...] are intact. IMPRESSION: Degenerative changes as described. [place]ock Judge: [facility] Transcribe Date/Time: Feb 08 2025 9:52P Dictated by : SUSAN PITTMAN MD This examination was interpreted and the report reviewed and electronically signed by: SUSAN PITTMAN MD on Feb 08 2025 9:53PM EST [id number] Normal [facility] CBC (INCLUDES DIFF/PLT)on Basophils (Bld) [#/Vol] 0.08 10*3/uL Normal 0-200 [facility] Comment on above: Performed By: #### 5 363, 6399, 7600, 86072 #### [facility] of [place] [address] Staff Midwife: Wero Conn MD Basophils/100 WBC (Bld) 1.1 % Normal [facility] Comment on above: Performed By: #### 5 363, 6399, 7600, 48379 #### [facility] of [place] [address] Staff Midwife: Wero Conn MD Eosinophils (Bld) [#/Vol] 0.299 10*3/uL Normal 15-500 [facility] Comment on above: Performed By: #### 5 363, 6399, 7600, 06186 #### [facility] of [address], [address] [place] [address] Staff Midwife: Wero Conn MD Eosinophils/100 WBC (Bld) 4.1 % Normal [facility] Comment on above: Performed By: #### 5 363, 6399, 7600, 15545 #### [facility] of [place] [address] Staff Midwife: Wero Conn MD Erythrocyte distribution width (RBC) [Ratio] 13.1 % Normal 11.0-15.0 [facility] Comment on above: Performed By: #### 5 363, 6399, 7600, 03303 #### [facility] [place] [address] Staff Midwife: Wero Conn MD Hematocrit (Bld) [Volume fraction] 53.4 % High 38.5-50.0 [facility] Comment on above: Performed By: #### 5 363, 6399, 7600, 45111 #### [facility] of [place] [address] Staff Midwife: Wero Conn MD Hemoglobin (Bld) [Mass/Vol] 17.8 g/dL High 13.2-17.1 [facility] Comment on above: Performed By: #### 5 363, 6399, 7600, 32977 #### [facility] of [address], [address] [place] [address] Staff Midwife: Wero Conn MD Lymphocytes (Bld) [#/Vol] 1.161 10*3/uL Normal 850-3900 [facility] Comment on above: Performed By: #### 5 363, 6399, 7600, 49849 #### [facility] of [address], [address] [place] [address] Staff Midwife: Wero Conn MD Lymphocytes/100 WBC (Bld) 15.9 % Normal [facility] Comment on above: Performed By: #### 5 363, 6399, 7600, 68900 #### [facility] [place] [address] Staff Midwife: Wero Conn MD MCH (RBC) [Entitic mass] 30.7 pg Normal 27.0-33.0 [facility] Comment on above: Performed By: #### 5 363, 6399, 7600, 82110 #### [facility] [place] [address] Staff Midwife: Wero Conn MD MCHC (RBC) [Mass/Vol] 33.3 [...] Performed By: #### 5 363, 6399, 7600, 71488 #### [facility] [place] [address] Staff Midwife: Wero Conn MD MCV (RBC) [Entitic vol] 92.2 fL Normal 80.0-100.0 [facility] Comment on above: Performed By: #### 5 363, 6399, 7600, 44311 #### [facility] of [address], [address] [place] [address] Staff Midwife: Wero Conn MD Monocytes (Bld) [#/Vol] 0.628 10*3/uL Normal 200-950 [facility] Comment on above: Performed By: #### 5 363, 6399, 7600, 45955 #### [facility] of [address], [address] [place] [address] Staff Midwife: Wero Conn MD Monocytes/100 WBC (Bld) 8.6 % Normal [facility] Comment on above: Performed By: #### 5 363, 6399, 7600, 29176 #### [facility] of [address], [address] [place] [address] Staff Midwife: Wero Conn MD Neutrophils (Bld) [#/Vol] 5.132 10*3/uL Normal 3774-6975 [facility] Comment on above: Performed By: #### 5 363, 6399, 7600, 93958 #### [facility] of [address], [address] [place] [address] Staff Midwife: Wero Conn MD Neutrophils/100 WBC (Bld) 70.3 % Normal [facility] Comment on above: Performed By: #### 5 363, 6399, 7600, 39598 #### [facility] of [address], [address] [place] [address] Staff Midwife: Wero Conn MD Platelet mean volume (Bld) [Entitic vol] 11.4 fL Normal 7.5-12.5 [facility] Comment on above: Performed By: #### 5 363, 6399, 7600, 00188 #### [facility] of [address], [address] [place] [address] Staff Midwife: Wero Conn MD Platelets (Bld) [#/Vol] 188 10*3/uL Normal 140-400 [facility] Comment on above: Performed By: #### 5 363, 6399, 7600, 77413 #### [facility] of [address], [address] [place] [address] Staff Midwife: Wero Conn MD RBC (Bld) [#/Vol] 5.79 10*6/uL Normal 4.20-5.80 [facility] Comment on above: Performed By: #### 5 363, 6399, 7600, 63748 #### [facility] of [address], [address] [place] [address] Staff Midwife: Wero Conn MD WBC (Bld) [#/Vol] 7.3 10*3/uL Normal 3.8-10.8 [facility] Comment on above: Performed By: #### 5 363, 6399, 7600, 50272 #### [facility] of [place] [address] Staff Midwife: Wero Conn MD [facility] Albumin [Mass/Vol] 4.5 g/dL Normal 3.6-5.1 [facility] Comment on above: Performed By: #### 5 363, 6399, 7600, 72067 #### [facility] of [place] [address] Staff Midwife: Wero Conn MD Albumin/Globulin [Mass ratio] 2.0 {ratio} Normal 1.0-2.5 [facility] Comment on above: Performed By: #### 5 363, 6399, 7600, 67422 #### [facility] of [place] [address] Staff Midwife: Wero Conn MD ALP [Catalytic activity/Vol] 61 U/L Normal 35-144 [facility] Comment on above: Performed By: #### 5 363, 6399, 7600, 26258 #### [facility] of [place] [address] Staff Midwife: Wero Conn MD ALT [Catalytic activity/Vol] 16 U/L Normal 9-46 [facility] Comment on above: Performed By: #### 5 363, 6399, 7600, 97632 #### [facility] of [address], [address] [place] [address] Staff Midwife: Wero Cnon MD AST [Catalytic activity/Vol] 16 U/L Normal 10-35 [facility] Comment on above: Performed By: #### 5 363, 6399, 7600, 06768 #### [facility] of [address], [address] [place] [address] Staff Midwife: Wero Conn MD Bilirubin [Mass/Vol] 2.1 mg/dL High 0.2-1.2 [facility] Comment on above: Performed By: #### 5 363, 6399, 7600, 85621 #### [facility] of [address], [address] [place] [address] Staff Midwife: Wero Conn MD Calcium [Mass/Vol] 9.0 mg/dL Normal 8.6-10.3 [facility] Comment on above: Performed By: #### 5 363, 6399, 7600, 92575 #### [facility] of [address], [address] [place] [address] Staff Midwife: Wero Conn MD Chloride [Moles/Vol] 103 mmol/L Normal 98-110 [facility] Comment on above: Performed By: #### 5 363, 6399, 7600, 89289 #### [facility] of [place] [address] Staff Midwife: Wero Conn MD CO2 [Moles/Vol] 27 mmol/L Normal 20-32 [facility] Comment on above: Performed By: #### 5 363, 6399, 7600, 29025 #### [facility] of [address], [address] [place] [address] Staff Midwife: Wero Conn MD Creatinine [Mass/Vol] 1.38 mg/dL High 0.70-1.[address] [facility] Comment on above: Performed By: #### 5 363, 6399, 7600, 90125 #### [facility] of [address], [address] [place] [address] Staff Midwife: Wero Conn MD GFR/1.73 sq M.predicted among non-blacks MDRD (S/P/Bld) [Vol rate/Area] 56 mL/min/{1.73_m2} Low > OR = 60 [facility] Comment on above: Performed By: #### 5 363, 6399, 7600, 67551 #### [facility] [place] [address] Staff Midwife: Wero Conn MD Globulin (S) [Mass/Vol] 2.2 g/dL Normal 1.9-3.7 [facility] Comment on above: Performed By: #### 5 363, 6399, 7600, 01862 #### [facility] [place] [address] Staff Midwife: Wero Conn MD Glucose [Mass/Vol] 90 mg/dL Normal 65-99 [facility] Comment on above: Result Comment: Fasting reference interval Performed By: #### 5 363, 6399, 7600, 41564 #### [facility] [place] [address] Staff Midwife: Wero Conn MD Potassium [Moles/Vol] 4.7 mmol/L Normal 3.5-5.[address] [facility] Comment on above: Performed By: #### 5 363, 6399, 7600, 49588 #### [facility] [place] [address] Staff Midwife: Wero Conn MD Protein [Mass/Vol] 6.7 g/dL Normal 6.1-8.1 [facility] Comment on above: Performed By: #### 5 363, 6399, 7600, 27959 #### [facility] [place] [address] Staff Midwife: Wero Conn MD Sodium [Moles/Vol] 141 mmol/L Normal 135-146 [facility] Comment on above: Performed By: #### 5 363, 6399, 7600, 72155 #### [facility] [place] [address] [place] [address] Staff Midwife: Wero Conn MD Urea nitrogen [Mass/Vol] 19 mg/dL Normal 7- [facility] Comment on above: Performed By: #### 5 363, 6399, 7600, 41967 #### [facility] [address], [address] [place] [address] Staff Midwife: Wero Conn MD Urea nitrogen/Creatinine [Mass ratio] 14 mg/mg Normal 6-22 [facility] Comment on above: Performed By: #### 5 363, 6399, 7600, 48193 #### [facility] [address], [address] [place] [address] Staff Midwife: Wero Conn MD LIPID PANEL, [facility] 12-0 Cholesterol [Mass/Vol] 217 mg/dL High <200 [facility] Comment on above: Order Comment: FASTI NG:YES FASTING: YES Performed By: #### 5 363, 6399, 7600, 81895 #### [facility] [address], [address] [place] [address] Staff Midwife: Wero Conn MD Cholesterol in HDL [Mass/Vol] 34 mg/dL Low > OR = 40 [facility] Comment on above: Order Comment: FASTI NG:YES FASTING: YES Performed By: #### 5 363, 6399, 7600, 31819 #### [facility] [place] [address] Staff Midwife: Wero Conn MD Cholesterol in LDL [Mass/Vol] 151 mg/dL High [facility] Comment on above: Order Comment: FASTI NG:YES FASTING: YES Result Comment: Refe rence range: <100 Desirable range <100 mg/dL for primary prevention; <70 mg/dL for patients with CHD or diabetic patients with > or = 2 CHD risk factors. LDL-C is now calculated using the Jnei calculation, which is a validated novel method providing better accuracy than the Friedewald equation in the estimation of LDL-C. Jame SS et al. SHARONA. 2013;310(19): 8337-0348 (http://education.[email or web address].[email or web address]/faq/RVG869) Performed By: #### 5 363, 6399, 7600, 01537 #### [facility] [address], [address] [place] [address] Staff Midwife: Wero Conn MD Cholesterol.total/Cho lesterol in HDL [Mass ratio] 6.4 {ratio} High <5.0 [facility] Comment on above: Order Comment: FASTI NG:YES FASTING: YES Performed By: #### 5 363, 6399, 7600, 75684 #### [facility] [address], [address] [place] [address] Staff Midwife: Wero Conn MD NON HDL CHOLESTEROL 183 mg/dL (calc) High <130 [facility] Comment on above: Order Comment: FASTI NG:YES FASTING: YES Result Comment: For patients with diabetes plus 1 major ASCVD risk factor, treating to a non-HDL-C goal of <100 mg/dL (LDL-C of <70 mg/dL) is considered a therapeutic option. Performed By: #### 5 363, 6399, 7600, 09723 #### [facility] [address], [address] [place] [address] Staff Midwife: Wero Conn MD Triglyceride [Mass/Vol] 183 mg/dL High <150 [facility] Comment on above: Order Comment: FASTI NG:YES FASTING: YES Performed By: #### 5 363, 6399, 7600, 85255 #### [facility] [address], [address] [place] [address] Staff Midwife: Wero Conn MD PSA, TOTALon 09-02-2024 PSA, [...] Performed By: #### 5 363, 6399, 7600, 89449 #### [facility] [address] [facility], [address] [place] [address] Staff Midwife: Wero Conn MD TSHon 09-02-2024 TSH Qn 1.77 m[IU]/L Normal 0.40-4.50 [facility] Comment on above: Performed By: #### 5 363, 6399, 7600, 33438 #### [facility] [address], [address] [place] [address] Staff Midwife: Wero Conn MD ELA Comprehensive Panelon ELA TABLE Comment Normal . [facility] Comment on above: Result Comment: Auto antibody [...] Sm (anti-Marroquin) SLE 15 - 30% --------- DISASTER RECOVERY MANAGER Mixed Connective Tissue Disease 95% (U1 nRNP, SLE 30 - 50% anti-ribonucleoprotein) Polymyositis and/or Dermatomyositis 20% --------- Scl-70 (antiDNA Scleroderma (diffuse) 20 - 35% topoisomerase) Crest 13% --------- Maria Guadalupe-1 Polymyositis and/or Dermatomyositis 20 - 40% --------- Centromere B Scleroderma - Crest variant 80% Performed at: [address] [id number] Packaging Operator: Uriel Zelaya PhD, Phone: [phone] Performed By: #### L 7000.5300, L3100.5440, L500.4050 #### [facility] [address] [place], [address] ANTI-CENT B AB <0.2 Normal 0.0-0.9 [facility] Comment on above: Performed By: #### L 7000.5300, L3100.5440, L500.4050 #### [facility] [address] [place], [address] ANTI-DNA (DS)AB 5 IU/mL Normal 0-9 [facility] Comment on above: Result Comment: Nega tive <5 Equivocal 5 - 9 Positive >9 Performed By: #### L 7000.5300, L3100.5440, L500.4050 #### [facility] [address] [place], [address] ANTI-MARIA GUADALUPE-1 <0.2 Normal 0.0-0.9 [facility] Comment on above: Performed By: #### L 7000.5300, L3100.5440, L500.4050 #### [facility] [address] [place], [address] ANTI-SS-A < 0.2 Normal 0.0-0.9 [facility] Comment on above: Performed By: #### L 7000.5300, L3100.5440, L500.4050 #### [facility] [address] [place], [address] ANTI-SS-B < 0.2 Normal 0.0-0.9 [facility] Comment on above: Performed By: #### L 7000.5300, L3100.5440, L500.4050 #### [facility] [address] [place], [address] ANTICHROMATIN <0.2 Normal 0.0-0.9 [facility] Comment on above: Performed By: #### L 7000.5300, L3100.5440, L500.4050 #### [facility] [address] [place], [address] ANTISCLERODERM <0.2 Normal 0.0-0.9 [facility] Comment on above: Performed By: #### L 7000.5300, L3100.5440, L500.4050 #### [facility] [address] [place], [address] DISASTER RECOVERY MANAGER Ab <0.2 Normal 0.0-0.9 [facility] Comment on above: Performed By: #### L 7000.5300, L3100.5440, L500.4050 #### [facility] [address] [place], [address] MARROQUIN Ab <0.2 Normal 0.0-0.9 [facility] Comment on above: Performed By: #### L 7000.5300, L3100.5440, L500.4050 #### [facility] [address] [place], [address] Lyme Screen W/Reflex WBon LYME SCREEN Ab Negative Normal Negative [facility] Comment on above: Result Comment: Lyme antibodies not detected. Reflex testing is not indicated. No laboratory evidence of infection with B. burgdorferi (Lyme disease). Negative results may occur in patients recently infected (less than or equal to 14 days) with B. burgdorferi. If recent infection is suspected, repeat testing on a new sample collected in 7 to 14 days is recommended. Performed at: [address] [id number] Packaging Operator: Uriel Zelaya PhD, Phone: [phone] Performed By: #### L 7000.5300, L3100.5440, L500.4050 #### [facility] [address] [place], [address] Comprehensive Metabolic Prof ilon 07-27-2024 Albumin [Mass/Vol] 4.2 g/dL Normal 3.2-5.0 [facility] Comment on above: Performed By: #### L 7000.5300, L3100.5440, L500.4050 #### [facility] [address] [place], [address] Albumin/Globulin [Mass ratio] 1.6 {ratio} Normal 0.9-2.4 [facility] Comment on above: Performed By: #### L 7000.5300, L3100.5440, L500.4050 #### [facility] [address] [place], [address] ALK P 70 U/L Normal 45-117 [facility] Comment on above: Performed By: #### L 7000.5300, L3100.5440, L500.4050 #### [facility] [address] [place], [address] ALT [Catalytic activity/Vol] 31 U/L Normal 16-61 [facility] Comment on above: Performed By: #### L 7000.5300, L3100.5440, L500.4050 #### [facility] [address] [place], [address] AST [Catalytic activity/Vol] 21 U/L Normal 15-37 [facility] Comment on above: Performed By: #### L 7000.5300, L3100.5440, L500.4050 #### [facility] [address] [place], [address] Bilirubin [Mass/Vol] 1.80 mg/dL High 0.20-1.00 [facility] Comment on above: Result Comment: For patients on eltrombopag therapy, use of Dimension Carlotta TBIL is not recommended. Performed By: #### L 7000.5300, L3100.5440, L500.4050 #### [facility] [address] [place], [address] BUN/CRE 8.4 RATIO Low 10-20 [facility] Comment on above: Performed By: #### L 7000.5300, L3100.5440, L500.4050 #### [facility] [address] [place], [address] CA,Total 8.8 mg/dL Normal 8.5-10.1 [facility] Comment on above: Performed By: #### L 7000.5300, L3100.5440, L500.4050 #### [facility] [address] [place], [address] Chloride [Moles/Vol] 107 mmol/L Normal 98-107 [facility] Comment on above: Performed By: #### L 7000.5300, L3100.5440, L500.4050 #### [facility] [address] [place], [address] CO2 [Moles/Vol] 29.0 mmol/L Normal 21.0-32.0 [facility] Comment on above: Performed By: #### L 7000.5300, L3100.5440, L500.4050 #### [facility] [address] [place], [address] Creatinine [Mass/Vol] 1.79 mg/dL High 0.70-1.30 [facility] Comment on above: Result Comment: The validity of the calculated GFR GFRAA in patients over 70 years has not been determined. Clinical correlation is essential. Performed By: #### L 7000.5300, L3100.5440, L500.4050 #### [facility] [address] [place], [address] EST GFR - AA 49 mL/min Low >60 [facility] Comment on above: Result Comment: Afri can Slovak GFR Calc Performed By: #### L 7000.5300, L3100.5440, L500.4050 #### [facility] [address] [place], [address] GAP 5 Normal 5-15 [facility] Comment on above: Performed By: #### L 7000.5300, L3100.5440, L500.4050 #### [facility] [address] [place], [address] GFR/1.73 sq M.predicted among non-blacks MDRD (S/P/Bld) [Vol rate/Area] 40 mL/min/{1.73_m2} Low >60 [facility] Comment on above: Result Comment: Non- GFR Calc Performed By: #### L 7000.5300, L3100.5440, L500.4050 #### [facility] [address] [place], [address] Globulin (S) [Mass/Vol] 2.7 g/dL Normal 2.2-4.2 [facility] Comment on above: Performed By: #### L 7000.5300, L3100.5440, L500.4050 #### [facility] [address] [place], [address] Glucose [Mass/Vol] 105 mg/dL Normal 74-106 [facility] Comment on above: Result Comment: Fast ing Glucose result from 100 to 125 mg/dL suggests IMPAIRED HOMEOSTASIS per A.D.A. criteria. Performed By: #### L 7000.5300, L3100.5440, L500.4050 #### [facility] [address] [place], [address] Potassium [Moles/Vol] 4.7 mmol/L Normal 3.5-5.1 [facility] Comment on above: Performed By: #### L 7000.5300, L3100.5440, L500.4050 #### [facility] [address] [place], [address] Sodium [Moles/Vol] 140 mmol/L Normal 136-145 [facility] Comment on above: Performed By: #### L 7000.5300, L3100.5440, L500.4050 #### [facility] [address] [place], [address] T PROT 6.9 g/dL Normal 6.4-8.2 [facility] Comment on above: Performed By: #### L 7000.5300, L3100.5440, L500.4050 #### [facility] [address] [place], [address] Urea nitrogen [Mass/Vol] 15 mg/dL Normal 7-18 [facility] Comment on above: Performed By: #### L 7000.5300, L3100.5440, L500.4050 #### [facility] [address] [place], [address] ED Physician Reporton 2023 ED Physician Report [...] up, he was diaphoretic. He went to [place] emergency department. He reports that he had an EKG and CT of his head and neck. I was able to receive records from [place]. Patient did have a CT angio of [...] Patient will be placed in observation on [employer] at this time for further hydration. He [...] 150 mmHg (more content not included)... Normal [facility] Consult Reporton 05-18-2024 Consult Report Patient: ARTURO SNOW Age: 68 years Sex: Male : 1955 Associated Diagnoses: None Author: DAVE RAMOS MD History of Present Illness 8-year-old male. I reviewed the records from [facility]Emergency room Chief complaint syncope. Background history [...] I then reviewed ER records 05/14/2020 for [facility] Came in for lightheadedness. Had room spinning [...] fL 05/15/24 Lymph % 15.2 % 05/15/24 [place] % 8.8 % (more content not included)... Normal [facility] ACETAMINOPHEN 325 MG TABon 0 05-15-2024 [...] Mendoza RN - 05/15/2024 2:53 EDT Normal [facility] Comment on above: Order Comment: Order entered secondary to inpatient admission. AUTO DIFFon 05-15-2024 Baso Count 0.07 x1000 Normal 0.00-0.20 [facility] Comment on above: Performed By: #### 1 77935, 9619165, 799997, 3959028 #### [facility] [address] [place], [place] [address] Staff Midwife: Jame Muhammad MD Basos % 0.9 % Normal [facility] Comment on above: Performed By: #### 1 91860, 1134250, 072224, 3685003 #### [facility] [address] [place], [place] [address] Staff Midwife: Jame Muhammad MD Eos Count 0.27 x1000 Normal 0.00-0.50 [facility] Comment on above: Performed By: #### 1 42806, 7139191, 394110, 0261653 #### [facility] [address] [place] [address] Staff Midwife: Jame Muhammad MD Eosinophils/100 WBC (Bld) 3.4 % Normal [facility] Comment on above: Performed By: #### 1 43067, 7123415, 484107, 7885835 #### [facility] [address] [place] [address] Staff Midwife: Jame Muhammad MD Lymph Count 1.21 x1000 Normal 1.20-4.80 [facility] Comment on above: Performed By: #### 1 97167, 3495287, 803539, 0986563 #### [facility] [address] [place] [address] Staff Midwife: Jame Muhammad MD Lymphocytes/100 WBC (Bld) 15.2 % Normal [facility] Comment on above: Performed By: #### 1 48555, 0679140, 551462, 3970716 #### [facility] [address] [place] [address] Staff Midwife: Jame Muhammad MD [place] Count 0.70 x1000 Normal 0.10-1.00 [facility] Comment on above: Performed By: #### 1 06470, 0286550, 817167, 6590686 #### [facility] [address] [place] [address] Staff Midwife: Jame Muhammad MD Monocytes/100 WBC (Bld) 8.8 % Normal [facility] Comment on above: Performed By: #### 1 69484, 8308310, 002314, 8223839 #### [facility] [address] [place] [address] Staff Midwife: Jame Muhammad MD Neutrophil Count (ANC) 5.72 x1000 Normal 1.40-8.80 [facility] Comment on above: Performed By: #### 1 48054, 9433279, 832057, 0609132 #### [facility] [address] [place] [address] Staff Midwife: Jame Muhammad MD Neutrophils/100 WBC (Bld) 71.8 % Normal [facility] Comment on above: Performed By: #### 1 97462, 0634022, 852822, 6447687 #### [facility] [address] [place] [address] Staff Midwife: Jame Muhammad MD COMPMETAon 05-15-2024 Albumin [Mass/Vol] 3.8 g/dL Normal 3.4-5.0 [facility] Comment on above: Performed By: #### 1 05987, 3686504, 926630, 8426901 #### [facility] [address] [place] [address] Staff Midwife: Jame Muhammad MD Albumin/Globulin [Mass ratio] 1.7 {ratio} Normal [facility] Comment on above: Performed By: #### 1 48218, 4681920, 077797, 7043163 #### [facility] [address] [place] [address] Staff Midwife: Jame Muhammad MD Alk Phos 65 unit/L Normal 45-117 [facility] Comment on above: Performed By: #### 1 56450, 0764273, 273086, 3248074 #### [facility] [address] [place] [address] Staff Midwife: Jame Muhammad MD Bilirubin [Mass/Vol] 1.60 mg/dL High 0.30-1.20 [facility] Comment on above: Result Comment: Use of this assay is not recommended for patients undergoing treatment with eltrombopag due to the potential for falsely elevated results. Performed By: #### 1 27835, 8162024, 555414, 3458932 #### [facility] [address] [place] [address] Staff Midwife: Jame Muhammad MD Calcium [Mass/Vol] 8.9 mg/dL Normal 8.7-10.4 [facility] Comment on above: Performed By: #### 1 66295, 4500479, 688812, 7228133 #### [facility] [address] [place] [address] Staff Midwife: Jame Muhammad MD Chloride [Moles/Vol] 106 mmol/L Normal 98-107 [facility] Comment on above: Performed By: #### 1 84563, 8899524, 088775, 2615433 #### [facility] [address] [place] [address] Staff Midwife: Jame Muhammad MD CO2 [Moles/Vol] 30.0 mmol/L Normal 20.0-31.0 [facility] Comment on above: Performed By: #### 1 17875, 5346395, 899129, 2171530 #### [facility] [address] [place] [address] Staff Midwife: Jame Muhammad MD Creatinine [Mass/Vol] 1.4 mg/dL High 0.6-1.1 [facility] Comment on above: Performed By: #### 1 24731, 5051049, 280761, 0397320 #### [facility] [address] [place] [address] Staff Midwife: Jame Muhammad MD GFR AA >60 Normal [facility] Comment on above: Result Comment: Afri can Slovak GFR Calc Medical judgement is necessary to [...] for drug dosing. Performed By: #### 1 23660, 9157104, 878464, 3530493 #### [facility] [address] [place] [address] Staff Midwife: Jame Muhammad MD Globulin (S) [Mass/Vol] 2.2 g/dL Normal [facility] Comment on above: Performed By: #### 1 05919, 9854233, 840108, 5165646 #### [facility] [address] [place] [address] Staff Midwife: Jame Muhammad MD Glomerular Filtration Rate 50 mL/min/1.73m? Normal [facility] Comment on above: Result Comment: Non- [...] for drug dosing. Performed By: #### 1 26921, 0973589, 105892, 7094683 #### [facility] [address] [place] [address] Staff Midwife: Jame Muhammad MD Glucose [Mass/Vol] 92 mg/dL Normal 74-106 [facility] Comment on above: Performed By: #### 1 44568, 7337291, 286156, 6158950 #### [facility] [address] [place] [address] Staff Midwife: Jame Muhammad MD GOT 19 unit/L Normal 15-37 [facility] Comment on above: Performed By: #### 1 47891, 2282663, 092260, 1768656 #### [facility] [address] [place] [address] Staff Midwife: Jame Muhammad MD GPT 24 unit/L Normal 10-49 [facility] Comment on above: Performed By: #### 1 01539, 1850314, 823175, 9644871 #### [facility] [address] [place] [address] Staff Midwife: Jame Muhammad MD Osmolality [Osmolality] 284 mosm/kg Normal 275-295 [facility] Comment on above: Performed By: #### 1 51590, 8165315, 063846, 3199956 #### [facility] [address] [place] [address] Staff Midwife: Jame Muhammad MD Potassium [Moles/Vol] 4.5 mmol/L Normal 3.5-5.1 [facility] Comment on above: Performed By: #### 1 37339, 8771132, 421822, 9610419 #### [facility] [address] [place] [address] Staff Midwife: Jame Muhammad MD Protein [Mass/Vol] 6.0 g/dL Normal 5.7-8.2 [facility] Comment on above: Result Comment: Tota l Protein results may be increased in patients receiving dextran as a blood volume business integration manager Performed By: #### 1 68378, 1230227, 984389, 4276985 #### [facility] [address] [place] [address] Staff Midwife: Jame Muhammad MD Sodium [Moles/Vol] 142 mmol/L Normal 135-145 [facility] Comment on above: Performed By: #### 1 30099, 4254482, 114965, 0421754 #### [facility] [address] [place] [address] Staff Midwife: Jame Muhammad MD Urea nitrogen [Mass/Vol] 16 mg/dL Normal 9-23 [facility] Comment on above: Result Comment: - Ve nipuncture should occur prior to N-Acetyl Cysteine (NAC) or Metamizole (Sulpyrine) administration due to the potential for falsely depressed results. - Blood samples from some patients with monoclonal gammopathies may produce falsely elevated results Performed By: #### 1 38909, 6372643, 566127, 5429973 #### [facility] [address] [place] [address] Staff Midwife: Jame Muhammad MD Urea nitrogen/Creatinine [Mass ratio] 11.4 mg/mg Normal [facility] Comment on above: Performed By: #### 1 26157, 3969620, 579117, 5396646 #### [facility] [address] [place] [id number] Staff Midwife: Jame Muhammad MD Consult Reporton 05-15-2024 Consult [...] the chair, EMS came took him to [place] ER then discharged home. Then at home he had same symptoms and came here. He had a cyst removed from his posterior neck a few weeks ago and has been having posterior headaches and neck pains since then. He denies chest pain. No history of CAD, HI, CHF. Past Medical History: Hypothyroidism Surgical History: [...] CHLORIDE SYR/VIAL 10ML 3 mL, IV Push, [id number] TAMSULOSIN 0.4MG CAP 0.4 mg 1 caps, ORAL, DAILY Continuous: (1) SODIUM CHLORIDE 0.9% 1,000 mL 1,000 mL, IV, 100 mL/hr PRN: (11) ACETAMINOPHEN 325 MG TAB 650 mg 2 tabs, ORAL, [id number] ACETAMINOPHEN 325 MG TAB 650 mg 2 tabs, ORAL, [id number] ACETAMINOPHEN 325 MG TAB 650 mg 2 tabs, ORAL, [id number] HydrALAZINE 20MG/1ML INJ 10 mg 0.5 mL, IV Push, [id number] MECLIZINE 25MG TABLET 25 mg 1 tabs, ORAL, TID MELATONIN 5MG TAB 5 mg 1 tabs, ORAL, [id number] NALOXONE 0.4MG/1ML INJ 0.4 mg 1 mL, IV Push, PRN ONDANSETRON=ZOFRAN INJ 4 mg 2 mL, IV Push, [id number] PERFLUTREN 2 ML INJ 2 ML, IV [...] he did contact the general surgeon in [place] and they do not feel the symptoms [...] primary servic (more content not included)... Normal [facility] Discharge Educationon 2023 Discharge Education Patient Education Material Normal [facility] HEMOon 05-15-2024 DIFF? No Normal [facility] Comment on above: Performed By: #### 1 16109, 1074732, 754631, 0109653 #### [facility] [address] [place] [address] Staff Midwife: Jame Muhammad MD Erythrocyte distribution width (RBC) [Ratio] 14.1 % Normal 11.5-14.5 [facility] Comment on above: Performed By: #### 1 85497, 7214640, 548616, 1968620 #### [facility] Laboratory Services [address] [place] [address] 87015 Staff Midwife: Jame Muhammad MD Hematocrit (Bld) [Volume fraction] 47.9 % Normal 41.0-52.0 [facility] Comment on above: Performed By: #### 1 62631, 3878737, 462949, 0191434 #### [facility] Laboratory Services [address] [place] [address] 83624 Staff Midwife: Jame Muhammad MD Hemoglobin (Bld) [Mass/Vol] 16.6 g/dL Normal 13.5-17.5 [facility] Comment on above: Performed By: #### 1 19497, 1614652, 728853, 7056668 #### [facility] Laboratory Services [address] [place] [address] 28677 Staff Midwife: Jame Muhammad MD Instr WBC 8.0 Normal [facility] Comment on above: Performed By: #### 1 97943, 6593856, 850280, 5922534 #### [facility] Laboratory Services [address] [place] [address] 20081 Staff Midwife: Jame Muhammad MD MCH (RBC) [Entitic mass] 31.5 pg Normal 27.0-34.0 [facility] Comment on above: Performed By: #### 1 45939, 6490797, 146998, 3981717 #### [facility] Laboratory Services [address] [place] [address] 21784 Staff Midwife: Jame Muhammad MD MCHC (RBC) [Mass/Vol] 34.8 g/dL Normal 32.0-37.0 [facility] Comment on above: Performed By: #### 1 97579, 9525745, 219837, 9562898 #### [facility] Laboratory Services [address] [place] [address] 61510 Staff Midwife: Jame Muhammad MD MCV (RBC) [Entitic vol] 90.6 fL Normal 80.0-100.0 [facility] Comment on above: Performed By: #### 1 16444, 7320914, 050366, 6734836 #### [facility] Laboratory Services [address] [place] [address] 92903 Staff Midwife: Jame Muhammad MD Nucleated RBC 0 /100WBC Normal [facility] Comment on above: Performed By: #### 1 53149, 4237505, 083498, 9631535 #### [facility] Laboratory Services [address] [place] [address] 36074 Staff Midwife: Jame Muhammad MD Platelet 157 x10 Normal 150-450 [facility] Comment on above: Performed By: #### 1 59819, 5366697, 036359, 2027582 #### [facility] Laboratory Services [address] [place] [address] 59578 Staff Midwife: Jame Muhammad MD Platelet mean volume (Bld) [Entitic vol] 8.8 fL Normal 7.4-10.4 [facility] Comment on above: Performed By: #### 1 12182, 2356284, 978684, 6259319 #### [facility] Laboratory Services [address] [place] [address] 61264 Staff Midwife: Jame Muhammad MD RBC 5.29 x10 Normal 4.70-6.10 [facility] Comment on above: Result Comment: Note : RBC morphology is normal unless otherwise stated. Evaluation performed only if differential is requested. Performed By: #### 1 79827, 6786187, 893664, 1934339 #### [facility] Laboratory Services [address] [place] [address] Staff Midwife: Jame Muhammad MD WBC 8.0 x10 Normal 4.5-11.0 [facility] Comment on above: Performed By: #### 1 13494, 5602910, 229408, 4841075 #### [facility] Laboratory Services [address] [place] [address] Staff Midwife: Jame Muhammad MD Inpatient Patient Summaryon 05-15-2024 Inpatient Patient Summary [facility] Discharge Instructions [address] [place] [address] (Patient Copy) Name: ARTURO SNOW : 1955 Diagnosis: Allergies: No Known Allergies Registration Date: 05/14/24 Current Date Time: 05/15/2024 16:05:03 Address: [address] [place] [address] [place] [address] Primary Care Provider: Name: OSKAR GALVAN Thank you for choosing [facility] for your care. You are very important to us. Our goal is to demonstrate our high quality medical care and provide you with a very good patient experience. You may receive a survey about our service. Please take the time to complete the survey and return it so we can continue to enhance our service. Thank you again for allowing [facility] to care for your medical needs. If [...] Address: When: DR CARMEN MACEDO ON STAFF [facility] [facility], [address] [place] [address] Business (1) Comments: Follow up [...] blood pre (more content not included)... Normal [facility] LIPID PNLon 05-15-2024 Calculated LDL Cholesterol 136 mg/dL High 60-130 [facility] Comment on above: Result Comment: <100 mg/dl Optimal 100-129 mg/dl Near Optimal 130-159 mg/dl Borderline High 160-189 mg/dl High >=190 mg/dl Very High Performed By: #### 1 08863, 1822243, 332258, 6888668 ####[facility] Laboratory [address] [place] 8136730 Medical Director: Jame Muhammad MD Cholesterol [Mass/Vol] 192 mg/dL Normal 100-200 [facility] Comment on above: Result Comment: Jerilyn puncture should occur prior to N-Acetyl Cysteine (NAC) or Metamizole (Sulpyrine) administration due to the potential for falsely depressed results. Performed By: #### 1 90373, 2515982, 132294, 5135930 ####[facility] Laboratory [address] [place] [address] Medical Director: Jame Muhammad MD Cholesterol in HDL [Mass/Vol] 29 mg/dL Low 40-60 [facility] Comment on above: Result Comment: Dire ct HDL Venipuncture should occur prior to metamizole (sulpyrine) administration due to the potential for falsely depressed results Performed By: #### 1 04721, 8874579, 459263, 8608814 ####[facility] Laboratory [address] [place] [address] [facility] Director: Jame Muhammad MD Total Chol/HDL Chol Ratio 6.6 Normal [facility] Comment on above: Performed By: #### 1 84275, 0909758, 811463, 6276126 ####[facility] Laboratory [address] [place] [address]136730 [facility] Director: Jame Muhammad MD Triglyceride [Mass/Vol] 133 mg/dL Normal 30-150 [facility] Comment on above: Result Comment: - Ve nipuncture should occur prior to N-Acetyl Cysteine (NAC) or Metamizole (Sulpyrine) administration due to the potential for falsely depressed results - Use of this assay is not recommended for patients being treated with etamsylate because it causes falsely decreased results Performed By: #### 1 66408, 7780455, 657424, 1378103 ####[facility] Laboratory [address] [place] 81367[address] [facility]: Jame Muhammad MD OT Acute Time [...] Dinah AHMADI - 05/15/2024 11:18 EDT Normal [facility] Quill Reamer Detailson 2023 Quill Reamer Details Quill Reamer Details Entered On: 05/15/2024 2:53 EDT Performed On: 05/15/2024 2:53 EDT by Samanta Mendoza RN Quill Reamer Details Transport Mode Order Detail EV : Wheelchair Isolation Precautions RTF : Communication CONSTANT Order, 05/14/2024 13:40:00 EDT, Constant Order, Current ACLS Provider may, Initiate [place] [employer] Advanced Cardiac Life support Algorithm per patient code status, Ordered Communication CONSTANT Order, 05/14/2024 13:40:00 EDT, Constant Order, STAT EKG for Chest Pain, STAT ABGs for Acute Respiratory Distress, STAT Potassium/Magnesium for any significant change in condition/rhythm, Ordered Notify Provider, 05/14/2024 13:40:00 EDT, Constant Order, Contact OBS Unit PA/[employer] MANAGER for any change in clinical status, positive [...] : No Pacemaker Order Detail : 0 Quill Reamer Details Review Status : Reviewed, no changes Nurse Collects Blood Specimens : Samanta Fischer RN - 05/15/2024 2:53 EDT Normal [facility] Comment on above: Order Comment: Order [...] added to discharge per dr [facility]ock [facility] - 05/15/2024 16:00 EDT Normal [facility] Rehabilitation Inpt - Assign ment - Text 05-15-2024 Rehabilitation Inpt - Assignment - Text Rehabilitation Inpatient - Assignment Entered On: 05/15/2024 15:34 EDT Performed On: 05/15/2024 15:34 EDT by Nayana Chavez PT Rehabilitation Inpatient - Assignment Physical Therapy : PMRPMelania barclay PT, Jennifer M - 05/15/2024 15:34 EDT Normal [facility] Rehabilitation Inpt - Assignment - Text Rehabilitation Inpatient - Assignment Entered On: 05/15/2024 7:26 EDT Performed On: 05/15/2024 7:26 EDT by Randy FAITHR/Kinjal Herrera Rehabilitation Inpatient - Assignment Occupational Therapy : Yuan OTR/L, Dinah AHMADI OTR/LKinjal - 05/15/2024 7:54 EDT Normal [facility] Rehabilitation Inpt - Assignment - Text Rehabilitation Inpatient - Assignment Entered On: 05/15/2024 7:27 EDT Performed On: 05/15/2024 7:27 EDT by Karen PEDERSON, LONA, [facility] Rehabilitation Inpatient - Assignment Physical Therapy : Austyn ZAMORANO, Lamonte Jones PT, DPT, Summer - 05/15/2024 7:27 EDT Normal [facility] Utilization Review Noteon Utilization Review Note OBS ORDERED. DX: dizziness, near syncope. OBS RECOMMENDED. DC WRITTEN. DC PLAN: HOME. ED UM TO F/U Patient has been discharged. Normal [facility] Vascular Lab Reporton 2023 Vascular Lab Report VASCULAR LAB PRELIMINARY REPORT CAROTID DUPLEX SCAN COMPLETE. REPORT TO FOLLOW. PRELIMINARY REPORT SHOWS NO SIGNIFICANT BILATERAL PLAQUE. PATENT VERTEBRAL ARTERIES. Normal [facility] APTTon 05-14-2024 aPTT Coag (Bld) [Time] 31.5 s Normal 27.0-38.0 [facility] Comment on above: Result Comment: APTT Interpretation: This test has not been validated to monitor heparin therapy. APTT test is used as an initial test for suspected bleeding disorder. Anti-Xa UFH test is used to monitor heparin therapy. Performed By: #### 9 617117, 773395, CD:[id number], 604369, 186188, 039068, 227942 ####[facility] Laboratory [address] [place], [place] [address] Medical Director: Jame Muhammad MD AUTO DIFFon 05-14-2024 Baso Count 0.02 x1000 Normal 0.00-0.20 [facility] Comment on above: Performed By: #### 9 135258, 569815, CD:753123238, 966105, 616587, 689289, 851067 ####[facility] Laboratory [address] [place] [address] Medical Director: Jame Muhammad MD Basos % 0.3 % Normal [facility] Comment on above: Performed By: #### 9 579269, 033913, CD:778655079, 359415, 483470, 928975, 868526 ####[facility] Laboratory [address] [place] [address] Medical Director: Jame Muhammad MD Eos Count 0.16 x1000 Normal 0.00-0.50 [facility] Comment on above: Performed By: #### 9 397320, 748199, CD:852452606, 014417, 131430, 702103, 241298 ####[facility] Laboratory [address] [place] [address] Medical Director: Jame Muhammad MD Eosinophils/100 WBC (Bld) 2.2 % Normal [facility] Comment on above: Performed By: #### 9 982521, 860578, CD:859864696, 892235, 405890, 479083, 490349 ####[facility] [address] [place] [address] Medical Director: Jame Muhammad MD Lymph Count 1.02 x1000 Low 1.20-4.80 [facility] Comment on above: Performed By: #### 9 441713, 085465, CD:084270502, 657625, 348163, 457370, 130293 ####[facility] [address] [place] [address] Medical Director: Jame Muhammad MD Lymphocytes/100 WBC (Bld) 14.5 % Normal [facility] Comment on above: Performed By: #### 9 510797, 501186, CD:562266253, 410721, 021421, 382785, 511040 ####[facility] [address] [place] [address] Medical Director: Jame Muhammad MD [place] Count 0.41 x1000 Normal 0.10-1.00 [facility] Comment on above: Performed By: #### 9 603018, 913506, CD:243407720, 016928, 212722, 534798, 055676 ####[facility] [address] [place] [address] Medical Director: Jame Muhammad MD Monocytes/100 WBC (Bld) 5.8 % Normal [facility] Comment on above: Performed By: #### 9 251333, 731700, CD:221438065, 029678, 792321, 050312, 674873 ####[facility] Laboratory [address] [place] [address] Medical Director: Jame Muhammad MD Neutrophil Count (ANC) 5.44 x1000 Normal 1.40-8.80 [facility] Comment on above: Performed By: #### 9 231047, 287753, CD:757573989, 482739, 726498, 634659, 440197 ####[facility] [address] [place] [address] Medical Director: Jame Muhammad MD Neutrophils/100 WBC (Bld) 77.2 % Normal [facility] Comment on above: Performed By: #### 9 099541, 224077, CD:161966235, 914325, 071448, 445150, 155086 ####[facility] Laboratory [address] [place] [address] Medical Director: Jame Muhammad MD Basic Admission [...] low position, Call device within reach, Fall insulation applicator ID Band, Falling [place], ID band check, Mobility support items readily available, Night light, Non-Slip footwear, Personal items within reach, Sensory aids within reach, Upper/Half-length side-rails up, Traffic path in room free of clutter, Wheels locked Demonstrates Ability to Use Call Light Successfully : Yes Philip Zhou - 05/14/2024 15:45 EDT Normal [facility] Comment on above: Order Comment: Order entered secondary to admission COMPMETAon 05-14-2024 Albumin [Mass/Vol] 4.1 g/dL Normal 3.4-5.0 [facility] Comment on above: Performed By: #### 9 340113, 044245, CD:624546704, 439883, 031940, 197547, 539394 ####[facility] Laboratory [address] [place] 8136730 Medical Director: Jame Muhammad MD Albumin/Globulin [Mass ratio] 1.6 {ratio} Normal [facility] Comment on above: Performed By: #### 9 454052, 637841, CD:122775829, 433037, 428772, 557451, 308519 ####[facility] Laboratory [address] [place] [address] Medical Director: Jame Muhammad MD Alk Phos 69 unit/L Normal 45-117 [facility] Comment on above: Performed By: #### 9 997341, 016106, CD:043415677, 522500, 299850, 702609, 972333 ####[facility] Laboratory [address] [place] [address] Medical Director: Jame Muhammad MD Bilirubin [Mass/Vol] 2.00 mg/dL High 0.30-1.20 [facility] Comment on above: Result Comment: Use of this assay is not recommended for patients undergoing treatment with eltrombopag due to the potential for falsely elevated results. Performed By: #### 9 082340, 575305, CD:731766678, 846367, 412707, 739991, 293519 ####[facility] Laboratory [address] [place] [address] Medical Director: Jame Muhammad MD Calcium [Mass/Vol] 9.1 mg/dL Normal 8.7-10.4 [facility] Comment on above: Performed By: #### 9 092427, 147242, CD:285177269, 831304, 773144, 750305, 616161 ####[facility] Laboratory [address] [place] [address] Medical Director: Jame Muhammad MD Chloride [Moles/Vol] 106 mmol/L Normal 98-107 [facility] Comment on above: Performed By: #### 9 741054, 294684, CD:508612693, 156762, 978801, 310588, 513498 ####[facility] Laboratory [address] [place], [place] [address]) [phone] Director: Jame Muhammad MD CO2 [Moles/Vol] 30.0 mmol/L Normal 20.0-31.0 [facility] Comment on above: Performed By: #### 9 431808, 857677, CD:046420330, 191889, 127428, 959200, 179650 ####[facility] Laboratory [address] [place], [place] [address]) [phone] Director: Jame Muhammad MD Creatinine [Mass/Vol] 1.5 mg/dL High 0.6-1.1 [facility] Comment on above: Performed By: #### 9 538571, 153351, CD:667945294, 770776, 254256, 780316, 934594 ####[facility] Laboratory [address] [place], [place] [address]) [phone] Director: Jame Muhammad MD GFR AA 56 [facility] Comment on above: Result Comment: Afri can [place] GFR Calc Medical judgement is necessary to [...] for drug dosing. Performed By: #### 9 665942, 849867, CD:976707439, 297709, 111818, 770250, 512472 ####[facility] [address] [place] [address] Medical Director: Jame Muhammad MD Globulin (S) [Mass/Vol] 2.5 g/dL [facility] Comment on above: Performed By: #### 9 796556, 658758, CD:336848717, 132295, 367859, 495307, 545554 ####[facility] Laboratory [address] [place] [address] Medical Director: Jame Muhammad MD Glomerular Filtration Rate 47 mL/min/1.73m? Normal [facility] Comment on above: Result Comment: Non- [...] for drug dosing. Performed By: #### 9 091200, 752880, CD:152709204, 778471, 503395, 427286, 154401 ####[facility] Laboratory [address] [place] [address] Medical Director: Jame Muhammad MD Glucose [Mass/Vol] 132 mg/dL High 74-106 [facility] Comment on above: Performed By: #### 9 020882, 063367, CD:212983837, 253687, 244261, 666899, 092660 ####[facility] Laboratory [address] [place] [address] Medical Director: Jame Muhammad MD GOT 17 unit/L Normal 15-37 [facility] Comment on above: Performed By: #### 9 548542, 535411, CD:462641810, 809353, 581606, 320256, 469053 ####[facility] Laboratory [address] [place] [address] Medical Director: Jame Muhammad MD GPT 21 unit/L Normal 10-49 [facility] Comment on above: Performed By: #### 9 500089, 594709, CD:509747018, 674999, 658412, 138383, 404757 ####[facility] Laboratory [address] [place] [address] Medical Director: Jame Muhammad MD Osmolality [Osmolality] 289 mosm/kg Normal 275-295 [facility] Comment on above: Performed By: #### 9 430839, 201730, CD:729232154, 455458, 791009, 882430, 055879 ####[facility] Laboratory [address] [place], [place] [address]) [phone] Director: Jame Muhammad MD Potassium [Moles/Vol] 4.2 mmol/L Normal 3.5-5.1 [facility] Comment on above: Performed By: #### 9 380453, 347555, CD:646899314, 396470, 929425, 299874, 920213 ####[facility] Laboratory [address] [place], [place] [address]) [phone] Director: Jame Muhammad MD Protein [Mass/Vol] 6.6 g/dL Normal 5.7-8.2 [facility] Comment on above: Result Comment: Tota l Protein results may be increased in patients receiving dextran as a blood volume business integration manager Performed By: #### 9 550446, 661561, CD:559644759, 193494, 323512, 822979, 424394 ####[facility] [address] [place] [address] Medical Director: Jame Muhammad MD Sodium [Moles/Vol] 143 mmol/L Normal 135-145 [facility] Comment on above: Performed By: #### 9 963960, 349899, CD:310694055, 534959, 348208, 318565, 005451 ####[facility] Laboratory [address] [place], [place] [address]) [phone] Director: Jame Muhammad MD Urea nitrogen [Mass/Vol] 19 mg/dL Normal 9-23 [facility] Comment on above: Result Comment: - Ve nipuncture should occur prior to N-Acetyl Cysteine (NAC) or Metamizole (Sulpyrine) administration due to the potential for falsely depressed results. - Blood samples from some patients with monoclonal gammopathies may produce falsely elevated results Performed By: #### 9 704564, 839942, CD:701577372, 907729, 004420, 870353, 422620 ####[facility] [address] [place] [address] Medical Director: Jame Muhammad MD Urea nitrogen/Creatinine [Mass ratio] 12.7 mg/mg Normal [facility] Comment on above: Performed By: #### 9 206061, 695988, CD:784722321, 650854, 091925, 049000, 422495 ####[facility] Laboratory [address] [place], [place] [address] Medical Director: Jame Muhammad MD CT BRAIN [...] SHRESTHA DO Signed Out: 05/14/24 15:00:25 Normal [facility] CT NECK LARYNX WO CONTRASTon 05-14-2024 [...] PÉREZ MD Signed Out: 05/14/24 14:57:27 Normal [facility] ED Data JAVA SCALA DEVELOPER - Texton 024 ED Data JAVA SCALA DEVELOPER - Text ED Data JAVA SCALA DEVELOPER Entered On: 05/14/2024 9:16 EDT Performed On: 05/14/2024 8:50 EDT by Scarlett Melton RN ED General Intake Information Information Given By : Patient [place] Coma : Document Pat Coma Scale Problem [...] Best Motor Response : Obeys simple commands [place] Coma Score (Ref) : 15 Scarlett Melton RN - 05/14/2024 9:12 EDT Problem History (As Of: 05/14/2024 09:16:33 EDT) Problems(Active) Hypothyroidism (SNOMED CT :16902336 ) Name of Problem: Hypothyroidism ; Recorder: Tessie Robledo RN; Confirmation: Confirmed ; Classification: Patient/Family Stated ; Code: [id number] ; Contributor System: [employer] ; Last Updated: 12/26/2013 17:39 EDT ; Life Cycle Date: 12/26/2013 ; Life Cycle Status: Active ; Vocabulary: SNOMED CT Diagnoses(Active) Dizziness Date: 05/14/2024 ; Diagnosis Type: Reason For Visit ; Confirmation: Confirmed ; Clinical Dx: Dizziness ; Classification: Medical ; Clinical Service: Non-Specified ; Code: PNED ; Probability: 0 ; Diagnosis Code: [id number] Syncope/Near syncope Date: 05/14/2024 ; Diagnosis Type: Reason For Visit ; Confirmation: Confirmed ; Clinical Dx: Syncope/Near syncope ; Classification: Medical ; Clinical Service: Non-Specified ; Code: PNED ; Probability: 0 ; Diagnosis Code: [id number] Procedure History ED Urinary Catheter Present on [...] Call light within reach and education provided Scarlett Melton RN - 05/14/2024 9:12 EDT Infection Screening Travel outside of [place] within past 21 days? : No [...] EDT by Tessie Robledo RN ) Normal [facility] ED Discharge Educationon ED Discharge Education Normal [facility] ED Emergency Severity Index Adult-Texton 05-14-2024 [...] Melton RN - 05/14/2024 9:12 EDT Normal [facility] ED Patient Summaryon 024 ED Patient Summary [facility] Emergency Department Discharge Instructions [address] [place] [address] (Patient Copy) Name: ARTURO SNOW : 1955 Allergies: No Known Allergies Diagnosis: Visit Date: 05/14/2024 08:46:06 [facility]#: [id number] Current Date Time: 05/14/2024 15:47:25 Address: [address] [place] [address] [place] [address] Primary Care Provider: Name: OSKAR GALVAN Emergency Department Care Providers: Primary Physician: PRIYANKA GREER MD Thank you for choosing [facility] for your emergency care. You are very important to us. Our goal is to demonstrate our high quality medical care, and provide you with a very good patient experience. You may receive a survey about our service. Please take the time to complete the survey and return it so we can continue to enhance our service. Thank you again for allowing the [facility] Emergency Department to care for your medical needs. If you have questions about your care or follow up information please contact us at [phone]. Follow-Up Instructions ARTURO SNOW has been given these follow-up instructions: Patient Education Materials MEDINACARMENARTURO Givens has been given the following patient education materials: BEFORE YOU LEAVE Set up your [facility] [employer] account! [employer] is a secure, online health management tool that connects you to portions of your hospital-based electronic medical record, allowing you to see test results, manage appointments, access discharge care instructions and much more. You can access [employer] from a computer, tablet or smartphone. Enrollment/registration is required. If you do not have a [employer] account, please provide us with an email address before you leave so that we may set up an account for you. New to [employer]! You may now securely connect some of the health management apps you use (e.g., fitness trackers, dietary trackers, etc.) to your health record in [place] [employer]. This new feature provides expanded access to your health and wellness data, which will help you and your care team make informed decisions about your health care. If you are interested in using a health management odalis not currently connected to [employer], contact a Snow Technician at [phone] or [email or web address]. We will determine if the odalis meets the technical requirements to connect to [place] [employer] and assure the security of your private [...] health or substance abuse issue, please call [facility] at [phone] or the National Suicide Prevention Lifeline at . I, MEDINANIKIARTURO, have received the follow-up provider(s) list, medication information and patient education materials/instructions and have verbalized understanding. Patient Signature Date Time Provider Signature Date Time Normal [facility] ED Progress Noteon 4 ED Progress Note 0850 - Present tot E D from home for intermittent dizziness. Patient is A&Ox3 and on room air. Patient states 3days ago he had dizziess with everything spinning. States he blacked out and fell at time of event and dos not remember much. States he went to [place] [facility] at that time. Per patient, this [...] - Spoke to CARLOS ENRIQUE Talley from [facility] for report. Family updated on plan of care. 1510 - Spoke to MRI - will transport patient to room when finished with test Normal [facility] ED Triage JAVA SCALA DEVELOPER - [facility] 05-14 ED Triage JAVA SCALA DEVELOPER - Text ED Triage JAVA SCALA DEVELOPER Enter ed On: 05/14/2024 9:15 EDT Performed [...] 05/14/2024 09:15:39 EDT) Problems(Active) Hypothyroidism (SNOMED CT :88933364 ) Name of Problem: Hypothyroidism ; Recorder: Tessie Robledo RN; Confirmation: Confirmed ; Classification: Patient/Family Stated ; Code: [id number] ; Contributor System: [employer] ; Last Updated: 12/26/2013 17:39 EDT ; Life Cycle Date: 12/26/2013 ; Life Cycle Status: Active ; Vocabulary: SNOMED CT Diagnoses(Active) Dizziness Date: 05/14/2024 ; Diagnosis Type: Reason For Visit ; Confirmation: Confirmed ; Clinical Dx: Dizziness ; Classification: Medical ; Clinical Service: Non-Specified ; Code: PNED ; Probability: 0 ; Diagnosis Code: [id number] Syncope/Near syncope Date: 05/14/2024 ; Diagnosis Type: Reason For Visit ; Confirmation: Confirmed ; Clinical Dx: Syncope/Near syncope ; Classification: Medical ; Clinical Service: Non-Specified ; Code: PNED ; Probability: 0 ; Diagnosis Code: [id number] Reason for Visit (As Of: 05/14/2024 09:15:39 EDT) Problems(Active) Hypothyroidism (SNOMED CT :74710823 ) Name of Problem: Hypothyroidism ; Recorder: Tessie Robledo RN; Confirmation: Confirmed ; Classification: Patient/Family Stated ; Code: [id number] ; Contributor System: [employer] ; Last Updated: 12/26/2013 17:39 EDT ; Life Cycle Date: 12/26/2013 ; Life Cycle Status: Active ; Vocabulary: SNOMED CT Diagnoses(Active) Dizziness Date: 05/14/2024 ; Diagnosis Type: Reason For Visit ; Confirmation: Confirmed ; Clinical Dx: Dizziness ; Classification: Medical ; Clinical Service: Non-Specified ; Code: PNED ; Probability: 0 ; Diagnosis Code: [id number] Syncope/Near syncope Date: 05/14/2024 ; Diagnosis Type: Reason For Visit ; Confirmation: Confirmed ; Clinical Dx: Syncope/Near syncope ; Classification: Medical ; Clinical Service: Non-Specified ; Code: PNED ; Probability: 0 ; Diagnosis Code: [id number] Sepsis Screening Sepsis Vitals Screening ED : None/ NA(Peds) Scarlett Melton RN - 05/14/2024 9:12 EDT Normal [facility] HEMOon 05-14-2024 DIFF? No Normal [facility] Comment on above: Performed By: #### 9 385135, 861931, CD:[id number], 813958, 061545, 767702, 465095 ####[facility] [id number] [place] [id number] Medical Director: Jame Muhammad MD Erythrocyte distribution width (RBC) [Ratio] 14.5 % Normal 11.5-14.5 [facility] Comment on above: Performed By: #### 9 645390, 613546, CD:[id number], 438620, 151434, 003434, 371957 ####[facility] [address] [place], [place] [address] Medical Director: Jame Muhammad MD Hematocrit (Bld) [Volume fraction] 50.4 % Normal 41.0-52.0 [facility] Comment on above: Performed By: #### 9 992217, 117593, CD:[id number], 155550, 777758, 736255, 967150 ####[facility] [address] [place] [address] Medical Director: Jame Muhammad MD Hemoglobin (Bld) [Mass/Vol] 17.2 g/dL Normal 13.5-17.5 [facility] Comment on above: Performed By: #### 9 961053, 915915, CD:[id number], 153511, 302064, 721218, 637958 ####[facility] [address] [place] [address] Medical Director: Jame Muhammad MD Instr WBC 7.0 Normal [facility] Comment on above: Performed By: #### 9 094624, 949153, CD:[id number], 242200, 127641, 961682, 019823 ####[facility] [address] [place], [place] [address]) [phone] Director: Jame Muhammad MD MCH (RBC) [Entitic mass] 30.9 pg Normal 27.0-34.0 [facility] Comment on above: Performed By: #### 9 155080, 850931, CD:[id number], 881546, 012771, 313325, 750781 ####[facility] [address] [place] [address] Medical Director: Jame Muhammad MD MCHC (RBC) [Mass/Vol] 34.0 g/dL Normal 32.0-37.0 [facility] Comment on above: Performed By: #### 9 138871, 528083, CD:[id number], 964546, 642266, 810076, 003217 ####[facility] [address] [place] [address] Medical Director: Jame Muhammad MD MCV (RBC) [Entitic vol] 90.7 fL Normal 80.0-100.0 [facility] Comment on above: Performed By: #### 9 148776, 359848, CD:[id number], 259462, 129163, 037820, 394140 ####[facility] [address] [place] [address] Medical Director: Jame Muhammad MD MDW 15.87 Normal 13.98-20.00 [facility] Comment on above: Result Comment: MDW [...] risk of Sepsis. Performed By: #### 9 175372, 745130, CD:[id number], 429535, 843044, 595648, 119245 ####[facility] [address] [place] [address] Medical Director: Jame Muhammad MD Nucleated RBC 0 /100WBC Normal [facility] Comment on above: Performed By: #### 9 255197, 063732, CD:[id number], 855329, 547925, 985364, 619568 ####[facility] [address] [place] [address] Medical Director: Jame Muhammad MD Platelet 168 x10 Normal 150-450 [facility] Comment on above: Performed By: #### 9 116632, 203179, CD:[id number], 365927, 025670, 568294, 254774 ####[facility] [address] [place] [address] Medical Director: Jame Muhammad MD Platelet mean volume (Bld) [Entitic vol] 8.9 fL Normal 7.4-10.4 [facility] Comment on above: Performed By: #### 9 994887, 736479, CD:[id number], 352476, 812258, 004713, 808117 ####[facility] [address] [place] [address] Medical Director: Jame Muhammad MD RBC 5.56 x10 Normal 4.70-6.10 [facility] Comment on above: Result Comment: Note : RBC morphology is normal unless otherwise stated. Evaluation performed only if differential is requested. Performed By: #### 9 572247, 974815, CD:[id number], 855574, 280007, 990383, 073637 ####[facility] [address] [place] [address] Medical Director: Jame Muhammad MD WBC 7.0 x10 Normal 4.5-11.0 [facility] Comment on above: Performed By: #### 9 483546, 435115, CD:082851949, 280485, 982473, 766058, 560451 ####[facility] [address] [place] [address] Medical Director: Jame Muhammad MD MG LEVELon 05-14-2024 Magnesium [Mass/Vol] 1.9 mg/dL Normal 1.6-2.6 [facility] Comment on above: Performed By: #### 9 953359, 057500, CD:877774404, 182197, 358824, 340534, 188282 ####[facility] [address] [place] [address] Medical Director: Jame Muhammad MD MR BRAIN WO CONTRASTon 05-14 MR BRAIN WO CONTRAST EXAM: MR BRAIN WO CONTRAST 05/14/2024 15:05 COMPARISON: Noncontrast MR Angiography of the [place] of [place] 05/14/2024 ; Noncontrast Head CT [...] for concurrent Noncontrast MR Angiography of the [place] 05/14/2024 for further comments regarding [...] for concurrent Noncontrast MR Angiography of the [place] 05/14/2024 for further comments regarding [...] HALL MD Signed Out: 05/14/24 15:47:02 Normal [facility] MRA BRAIN WO CONTRASTon 08- MRA BRAIN WO CONTRAST EXAM: MRA BRAIN WO CONTRAST 05/14/2024 15:05 COMPARISON: Noncontrast MRI of the Brain 05/14/2024 ; Noncontrast Head CT 05/14/2024 CLINICAL INDICATION: Altered Mental Status ; syncope; dizziness and giddiness TECHNIQUE: Noncontrast MR Angiography of the [place] was performed per standard site [...] symptoms persist, consider CT Angiography of the [place] and Neck Vessels, With Contrast, for further evaluation. . Electronically signed by: Max Hall MD 05/14/2024 03:52 PM EDT Technologist: TRISTEN GARCIA Dictated By: MAX HALL MD Signed By: MAX HALL MD Signed Out: 05/14/24 15:52:15 Normal [facility] MRA BRAIN WO CONTRAST MRI Checklist [...] Melton RN - 05/14/2024 14:45 EDT Normal [facility] Quill Reamer Detailson 2023 Quill Reamer Details Quill Reamer Details Entered On: 05/14/2024 15:39 EDT Performed On: 05/14/2024 15:39 EDT by Gerri Uriarte RN Quill Reamer Details Transport Mode Order Detail EV : Wheelchair Isolation Precautions RTF : Communication CONSTANT Order, 05/14/2024 13:40:00 EDT, Constant Order, Current ACLS Provider may, Initiate [employer] Advanced Cardiac Life support Algorithm per patient code status, Ordered Communication CONSTANT Order, 05/14/2024 13:40:00 EDT, Constant Order, STAT EKG for Chest Pain, STAT ABGs for Acute Respiratory Distress, STAT Potassium/Magnesium for any significant change in condition/rhythm, Ordered Notify Provider, 05/14/2024 13:40:00 EDT, Constant Order, Contact OBS Unit PA/[employer] MANAGER for any change in clinical status, positive test results, abnormal rhythm, or EKG changes, Ordered Oxygen Therapy, 05/14/2024 13:40:00 EDT, Nasal Cannula, 2-3L, PRN, Ordered Consult Physician, 05/14/2024 12:37:00 EDT, KRISTAN PRORAS, DAVE, dizziness, Ordered Level of Care Order, 05/14/2024 12:37:00 EDT, Medical Outpatient with Observation Services, [facility], Ordered Transfer Care of Patient to [...] : No Pacemaker Order Detail : 0 Quill Reamer Details Review Status : Initial Review Nurse Collects Blood Specimens : Ashley Uriarte RN, Gerri - 05/14/2024 15:39 EDT Normal [facility] Comment on above: Order Comment: Order entered secondary to admission PT INRon 05-14-2024 INR Coag (PPP) [Relative time] 1.1 {INR} Normal [facility] Comment on above: Result Comment: INR Reference Range: Normal reference range for INR on patients not on anticoagulant therapy: 0.9-1.1 General therapeutic range for patients on anticoagulant therapy: 2.0-3.5 Performed By: #### 9 035927, 341346, CD:[id number], 391069, 945777, 895699, 858234 ####[facility] [address] [place] [address] Medical Director: Jame Muhammad MD Protime Patient 12.7 seconds Normal 9.8-12.8 [facility] Comment on above: Performed By: #### 9 398549, 180563, CD:[id number], 113358, 653772, 002569, 245899 ####[facility] [address] [place] [address] Medical Director: Jame Muhammad MD Pharmacy Clinical Interventi ons-Texton 05-14-2024 Pharmacy Clinical Interventions-Text Pharmacy Clinical Interventions Entered On: 05/14/2024 11:11 EDT Performed On: 05/14/2024 11:10 EDT by Annie Blackwood CPhT Interventions Intervention Type Pharmacy : Medication history Pharmacy Order Initiated By : Mixing Roll Operator Clinical Importance Pharmacy : Potentially minor Prescriber Response Pharmacy : Corrected prior to contact Patient Clinical Outcome Pharmacy : Avoided potential risk Pharmacist Intervention Time : 10 Pharmacy Additional Information : updated med list with pt addeed all meds Annie Blackwood CPhT - 05/14/2024 11:10 EDT Normal [facility] Progress Note-Physicianon Progress Note-Physician Patient: ARTURO [...] was called and he was transported to [place] ED where he believes he received a [...] lipid panel ATTENDING TO FOLLOW PATIENT Normal [facility] TROPONIN HS 0HRon 05-14-2024 Troponin HS 0 Hr <3 Low 3-53 [facility] Comment on above: Result Comment: Spec imens from some individuals with pathologically high gamma globulin levels may demonstrate depressed troponin values Performed By: #### 9 616247, 885160, CD:[id number], 711408, 036720, 452946, 862580 ####[facility] [address] [place] [address] Medical Director: Jame Muhammad MD TROPONIN HS 2HRon 05-14-2024 Delta Troponin 2 Hr 0 pg/mL Normal 0-14 [facility] Comment on above: Result Comment: The term acute myocardial infarction should be used when there is acute myocardial injury with clinical evidence of acute myocardial ischemia and the rise or fall of serial Troponin HS values (delta troponin) greater than or equal to 15 pg/mL with at least one Troponin HS value above the 99th percentile reference range Performed By: #### C [id number] ####[facility] [id number] [place] [address] Medical Director: Jame Muhammad MD Troponin HS 2 Hr 3 pg/mL Normal 3-53 [facility] Comment on above: Result Comment: Spec imens from some individuals with pathologically high gamma globulin levels may demonstrate depressed troponin values Performed By: #### C [id number] ####[facility] [id number] [place] [address] Medical Director: Jame Muhammad MD TROPONIN HS 6HRon 05-14-2024 Delta Troponin 6 Hr 0 pg/mL Normal 0-14 [facility] Comment on above: Result Comment: The term acute myocardial infarction should be used when there is acute myocardial injury with clinical evidence of acute myocardial ischemia and the rise or fall of serial Troponin HS values (delta troponin) greater than or equal to 15 pg/mL with at least one Troponin HS value above the 99th percentile reference range Performed By: #### C [id number] ####[facility] [address] [place] [address] Medical Director: Jame Muhammad MD Troponin HS 6 Hr 3 pg/mL Normal 3-53 [facility] Comment on above: Result Comment: Spec imens from some individuals with pathologically high gamma globulin levels may demonstrate depressed troponin values Performed By: #### C [id number] ####[facility] [address] [place] [address] Medical Director: Jame Muhammad MD XR CHEST [...] ARROYO MD Signed Out: 05/14/24 10:02:22 Normal [facility] Basophil percentageOrdered B y: Amina Jaimes on 01-25-2023 Bilirubin [Mass/Vol] 1.80 mg/dL 0.20-1.00 [facility] Comment on above: For patients on eltr ombopag therapy, use of Dimension Carlotta TBIL is not recommended. Chloride [Moles/Vol] 104 mmol/L 98-107 [facility] Glucose [Mass/Vol] 140 mg/dL 74-106 [facility] Comment on above: Fasting Glucose resu lt greater than or equal to 126 mg/dL suggests DIABETES MELLITUS per A.D.A. criteria. Potassium [Moles/Vol] 4.0 mmol/L 3.5-5.1 [facility] Protein [Mass/Vol] 6.9 g/dL 6.4-8.2 [facility] Sodium [Moles/Vol] 140 mmol/L 136-145 [facility] Laboratory - Chemistry and C hemistry - challengeOrdered By: Amina Jaimes on 01-25-2023 ALP [Catalytic activity/Vol] 72 U/L 45-117 [facility] ALT [Catalytic activity/Vol] 40 U/L 16-61 [facility] CO2 [Moles/Vol] 29.0 mmol/L 21.0-32.0 [facility] Globulin (S) [Mass/Vol] 2.9 g/dL 2.2-4.2 [facility] Urea nitrogen/Creatinine [Mass ratio] 12.0 mg/mg 10-20 [facility] No Panel InformationOrdered By: Amina Jaimes on 01-25-2023 Estimated GFR (MDRD) Amer 64 mL/min >60 [facility] Comment on above: GFR Calc Estimated GFR (MDRD) Non-Af Amer 53 mL/min >60 [facility] Comment on above: Non- GFR Calc Prostate Specific Antigen Screen 2.05 ng/mL 0.00-4.00 [facility] Comment on above: This test was perfor med using the TPSA assay method for the[employer] chemistry system. Values obtained with differentassay methods cannot be used interchangably.When changing PSA assays in the course of monitoring apatient, additional sequential testing should be carriedout to confirm baseline values. Thyroid Stimulating Hormone (TSH) 1.42 uIU/mL 0.358-3.74 [facility] Serum or plasma albumin reta urement (mass/volume)Ordered By: Amina Jaimes on 01-25-2023 Albumin [Mass/Vol] 4.0 g/dL 3.2-5.0 [facility] Serum or plasma albumin/glob ulin mass ratioOrdered By: Amina Jaimes on 01-25-2023 Albumin/Globulin [Mass ratio] 1.4 {ratio} 0.9-2.4 [facility] Serum or plasma calcium reta urement (mass/volume)Ordered By: Amina Jaimes on 01-25-2023 Calcium [Mass/Vol] 8.8 mg/dL 8.5-10.1 [facility] Serum or plasma creatinine m easurement (mass/volume)Ordered By: Amina Jaimes on 01-25-2023 Creatinine [Mass/Vol] 1.42 mg/dL 0.70-1.30 [facility] Comment on above: The validity of the calculated GFR & GFRAA in patients over 70 years has not been determined. Clinical correlation is essential. Serum or plasma urea nitroge n measurement (mass/volume)Ordered By: Amina Jaimes on 01-25-2023 Urea nitrogen [Mass/Vol] 17 mg/dL 7-18 [facility] Thin prep Papanicolaou smear with manual screeningOrdered By: Amina Jaimes on 01-25-2023 Thin prep Papanicolaou smear with manual screening 24 U/L 15-37 [facility] Thin prep Papanicolaou smear with manual screening 7 5-15 [facility] Basophil percentageOrdered B y: Amina Jaimes on 10-08-2022 Bilirubin [Mass/Vol] 2.00 mg/dL 0.20-1.00 [facility] Comment on above: For patients on eltr ombopag therapy, use of Dimension Carlotta TBIL is not recommended. Chloride [Moles/Vol] 103 mmol/L 98-107 [facility] Glucose [Mass/Vol] 91 mg/dL 74-106 [facility] Potassium [Moles/Vol] 4.0 mmol/L 3.5-5.1 [facility] Protein [Mass/Vol] 7.0 g/dL 6.4-8.2 [facility] Sodium [Moles/Vol] 138 mmol/L 136-145 [facility] Laboratory - Chemistry and C hemistry - challengeOrdered By: Amina Jaimes on 10-08-2022 ALP [Catalytic activity/Vol] 70 U/L 45-117 [facility] ALT [Catalytic activity/Vol] 31 U/L 16-61 [facility] CO2 [Moles/Vol] 28.0 mmol/L 21.0-32.0 [facility] Globulin (S) [Mass/Vol] 2.9 g/dL 2.2-4.2 [facility] Urea nitrogen/Creatinine [Mass ratio] 14.7 mg/mg 10-20 [facility] No Panel InformationOrdered By: Amina Jaimes on 10-08-2022 Estimated GFR (MDRD) Amer 64 mL/min >60 [facility] Comment on above: GFR Calc Estimated GFR (MDRD) Non-Af Amer 53 mL/min >60 [facility] Comment on above: Non- GFR Calc Serum or plasma albumin reta urement (mass/volume)Ordered By: Amina Jaimes on 10-08-2022 Albumin [Mass/Vol] 4.1 g/dL 3.2-5.0 [facility] Serum or plasma albumin/glob ulin mass ratioOrdered By: Amina Jaimes on 10-08-2022 Albumin/Globulin [Mass ratio] 1.4 {ratio} 0.9-2.4 [facility] Serum or plasma calcium reta urement (mass/volume)Ordered By: Amina Jaimes on 10-08-2022 Calcium [Mass/Vol] 8.6 mg/dL 8.5-10.1 [facility] Serum or plasma creatinine m easurement (mass/volume)Ordered By: Amina Jaimes on 10-08-2022 Creatinine [Mass/Vol] 1.43 mg/dL 0.70-1.30 [facility] Comment on above: The validity of the calculated GFR & GFRAA in patients over 70 years has not been determined. Clinical correlation is essential. Serum or plasma urea nitroge n measurement (mass/volume)Ordered By: Amina Jaimes on 10-08-2022 Urea nitrogen [Mass/Vol] 21 mg/dL 7-18 [facility] Serum or plasma uric acid me asurement (mass/volume)Ordered By: Amina Jaimes on 10-08-2022 Urate [Mass/Vol] 8.5 mg/dL 3.5-7.2 [facility] Comment on above: The drugs N-Acetylcy steine and Metamizole may falsely depress this assay. Thin prep Papanicolaou smear with manual screeningOrdered By: Amina Jaimes on 10-08-2022 Thin prep Papanicolaou smear with manual screening 20 U/L 15-37 [facility] Thin prep Papanicolaou smear with manual screening 7 5-15 [facility] CR Chest PA/LATon 07-13-2022 CR Chest PA/LAT Patient Name: ARTURO WHELAN Diagnostic Radiology ACCESSION EXAM DATE/TIME PROCEDURE ORDERING PROVIDER [id number] 07/13/2022 10:37 EDT CR Chest PA and LAT MD AZIZA, BERNARDA RAY CPT code 89596 Reason For Exam (CR Chest PA and [...] Transcribed Date and Time: 07/13/2022 5:15 Normal [facility] Absolute lymphocyte counton 12-22-2021 Lymphocytes Auto (Unsp spec) [#/Vol] 1.33 10*3/uL 0.83-4.51 [facility] Work Phone: Basophil percentageon 2021 Basophils/100 WBC (Bld) 0.7 % 0-1 [facility] Work Phone: Bilirubin [Mass/Vol] 1.50 mg/dL 0.20-1.00 [facility] Work Phone: Comment on above: For patients on eltr ombopag therapy, use of Dimension Carlotta TBIL is not recommended. Chloride [Moles/Vol] 104 mmol/L 98-107 [facility] Work Phone: Cholesterol [Mass/Vol] 198 mg/dL <200 [facility] Work Phone: Comment on above: <200 mg/dL Desirable 200-240 mg/dL Borderline >240 mg/dL High Risk Eosinophils/100 WBC (Bld) 2.2 % 0-5 [facility] Work Phone: Glucose [Mass/Vol] 122 mg/dL 74-106 [facility] Work Phone: Comment on above: Fasting Glucose resu lt from 100 to 125 mg/dL suggests IMPAIRED HOMEOSTASIS per A.D.A. criteria. Neutrophils (Bld) [#/Vol] 6.3 10*3/uL 2.0-7.7 [facility] Work Phone: Neutrophils/100 WBC (Bld) 74.0 % 47-70 [facility] Work Phone: Potassium [Moles/Vol] 4.6 mmol/L 3.5-5.1 [facility] Work Phone: Protein [Mass/Vol] 7.3 g/dL 6.4-8.2 [facility] Work Phone: Sodium [Moles/Vol] 138 mmol/L 136-145 [facility] Work Phone: Triglyceride [Mass/Vol] 185 mg/dL [facility] Work Phone: Comment on above: The drugs N-Acetylcy steine and Metamizole may falsely depress this assay.Serum Triglycerides Reference Interval Normal <150 mg/dL Borderline high 150 - 199 mg/dL High 200 - 499 mg/dL Very High > or = 500 mg/dL WBC (Bld) [#/Vol] 8.6 10*3/uL 4.4-11.0 [facility] Work Phone: Blood erythrocytes count (nu mber/volume)on 12-22-2021 RBC (Bld) [#/Vol] 5.68 10*6/uL 4.6-6.2 [facility] Work Phone: Blood hemoglobin measurement (mass/volume)on 12-22-2021 Hemoglobin (Bld) [Mass/Vol] 17.1 g/dL 13.0-16.5 [facility] Work Phone: Blood lymphocytes/100 leukoc yteson 12-22-2021 Lymphocytes/100 WBC (Bld) 15.6 % 19-41 [facility] Work Phone: Blood monocytes/100 leukocyt eson 12-22-2021 Monocytes/100 WBC (Bld) 7.3 % 0-10 [facility] Work Phone: Blood platelet mean volumeon 12-22-2021 Platelet mean volume (Bld) [Entitic vol] 11.5 fL 6.2-12.0 [facility] Work Phone: Determination of erythrocyte mean corpuscular volume (MCV)on 12-22-2021 MCV (RBC) [Entitic vol] 88.7 fL 80-94 [facility] Work Phone: Hematocrit Auto (Bld) [Volum e fraction]on 12-22-2021 Hematocrit (Bld) [Volume fraction] 50.4 % 40-54 [facility] Work Phone: Laboratory - Chemistry and C hemistry - challengeon 12-22-2021 ALP [Catalytic activity/Vol] 72 U/L 45-117 [facility] Work Phone: ALT [Catalytic activity/Vol] 29 U/L 16-61 [facility] Work Phone: CO2 [Moles/Vol] 30.0 mmol/L 21.0-32.0 [facility] Work Phone: Globulin (S) [Mass/Vol] 3.0 g/dL 2.2-4.2 [facility] Work Phone: Urea nitrogen/Creatinine [Mass ratio] 9.1 mg/mg 10-20 [facility] Work Phone: Laboratory - Hematology and Cell countson 12-22-2021 Erythrocyte distribution width (RBC) [Entitic vol] 45.9 fL 35.1-43.9 [facility] Work Phone: Erythrocyte distribution width (RBC) [Ratio] 14.2 % 11.6-14.6 [facility] Work Phone: Immature granulocytes/100 WBC (Bld) 0.200 % 0.0-0.9 [facility] Work Phone: Comment on above: IG% - Immature Granu locytes (promyelocytes, myelocytes and metamyelocytes) > 1% indicates that a LEFT SHIFT is Present. MCH (RBC) [Entitic mass] 30.1 pg 27.0-32.0 [facility] Work Phone: Nucleated RBC/100 WBC (Bld) [Ratio] 0 % 0-5 [facility] Work Phone: MCHC Auto (RBC) [Mass/Vol]on 12-22-2021 MCHC (RBC) [Mass/Vol] 33.9 g/dL 32-36 [facility] Work Phone: No Panel Informationon 12-22 C-Reactive Protein High Sensitivity 1.80 mg/L [facility] Work Phone: Comment on above: Low Relative Risk of CVD <1.0 mg/L Average Relative Risk of CVD 1.0 - 3.0 mg/L High Relative Risk of CVD >3.0 mg/L Estimated GFR (MDRD) Amer 64 mL/min >60 [facility] Work Phone: Comment on above: GFR Calc Estimated GFR (MDRD) Non-Af Amer 53 mL/min >60 [facility] Work Phone: Comment on above: Non- GFR Calc Prostate Specific Antigen Screen 1.30 ng/mL 0.00-4.00 [facility] Work Phone: Comment on above: This test was perfor med using the TPSA assay method for [facility] chemistry system. Values obtained with differentassay methods cannot be used interchangably.When changing PSA assays in the course of monitoring apatient, additional sequential testing should be carriedout to confirm baseline values. Thyroid Stimulating Hormone (TSH) 2.92 uIU/mL 0.358-3.74 [facility] Work Phone: Platelets bldon 12-22-2021 Platelets (Bld) [#/Vol] 186 10*3/uL 150-450 [facility] Work Phone: Serum or plasma albumin reta urement (mass/volume)on 12-22-2021 Albumin [Mass/Vol] 4.3 g/dL 3.2-5.0 [facility] Work Phone: Serum or plasma albumin/glob ulin mass ratioon 12-22-2021 Albumin/Globulin [Mass ratio] 1.4 {ratio} 0.9-2.4 [facility] Work Phone: Serum or plasma calcium reta urement (mass/volume)on 12-22-2021 Calcium [Mass/Vol] 8.6 mg/dL 8.5-10.1 [facility] Work Phone: Serum or plasma cholesterol in HDL measurement (mass/volume)on 12-22-2021 Cholesterol in HDL [Mass/Vol] 32 mg/dL [facility] Work Phone: Comment on above: The drugs N-Acetylcy steine and Metamizole may falsely depress this assay. Reference Range HDL <40 mg/dL Low HDL Cholesterol HDL >or= 60 mg/dL High HDL Cholesterol Serum or plasma cholesterol in VLDL measurement (mass/volume)on 12-22-2021 Cholesterol in VLDL [Mass/Vol] 37 mg/dL 5-40 [facility] Work Phone: Serum or plasma creatinine m easurement (mass/volume)on 12-22-2021 Creatinine [Mass/Vol] 1.43 mg/dL 0.70-1.30 [facility] Work Phone: Comment on above: The validity of the calculated GFR & GFRAA in patients over 70 years has not been determined. Clinical correlation is essential. Serum or plasma low density lipoprotein (LDL) cholesterol measurement (mass/volume)on 12-22-2021 Cholesterol in LDL [Mass/Vol] 129 mg/dL 0-130 [facility] Work Phone: Serum or plasma urea nitroge n measurement (mass/volume)on 12-22-2021 Urea nitrogen [Mass/Vol] 13 mg/dL 7-18 [facility] Work Phone: Serum or plasma uric acid me asurement (mass/volume)on 12-22-2021 Urate [Mass/Vol] 6.6 mg/dL 3.5-7.2 [facility] Work Phone: Comment on above: The drugs N-Acetylcy steine and Metamizole may falsely depress this assay. Thin prep Papanicolaou smear with manual screeningon 12-22-2021 Thin prep Papanicolaou smear with manual screening 24 U/L 15-37 [facility] Work Phone: Thin prep Papanicolaou smear with manual screening 4 5-15 [facility] Work Phone: Absolute lymphocyte counton 09-04-2021 Lymphocytes Auto (Unsp spec) [#/Vol] 1.13 10*3/uL 0.83-4.51 [facility] Work Phone: Basophil percentageon 2020 Eosinophils/100 WBC (Bld) 1.9 % 0-5 [facility] Work Phone: Neutrophils (Bld) [#/Vol] 7.9 10*3/uL 2.0-7.7 [facility] Work Phone: WBC (Bld) [#/Vol] 10.1 10*3/uL 4.4-11.0 [facility] Work Phone: Blood erythrocytes count (nu mber/volume)on 09-04-2021 RBC (Bld) [#/Vol] 5.58 10*6/uL 4.6-6.2 [facility] Work Phone: Blood hemoglobin measurement (mass/volume)on 09-04-2021 Hemoglobin (Bld) [Mass/Vol] 17.2 g/dL 13.0-16.5 [facility] Work Phone: Blood lymphocytes/100 leukoc yteson 09-04-2021 Lymphocytes/100 WBC (Bld) 11.2 % 19-41 [facility] Work Phone: Blood monocytes/100 leukocyt eson 09-04-2021 Monocytes/100 WBC (Bld) 7.6 % 0-10 [facility] Work Phone: Blood platelet mean volumeon 09-04-2021 Platelet mean volume (Bld) [Entitic vol] 11.3 fL 6.2-12.0 [facility] Work Phone: Determination of erythrocyte mean corpuscular volume (MCV)on 09-04-2021 MCV (RBC) [Entitic vol] 90.9 fL 80-94 [facility] Work Phone: Hematocrit Auto (Bld) [Volum e fraction]on 09-04-2021 Hematocrit (Bld) [Volume fraction] 50.7 % 40-54 [facility] Work Phone: Laboratory - Hematology and Cell countson 09-04-2021 Basophils/100 WBC (Unsp spec) 0.9 % 0-1 [facility] Work Phone: Erythrocyte distribution width (RBC) [Entitic vol] 46.4 fL 35.1-43.9 [facility] Work Phone: Erythrocyte distribution width (RBC) [Ratio] 13.7 % 11.6-14.6 [facility] Work Phone: Immature granulocytes/100 WBC (Bld) 0.300 % 0.0-0.9 [facility] Work Phone: Comment on above: IG% - Immature Granu locytes (promyelocytes, myelocytes and metamyelocytes) > 1% indicates that a LEFT SHIFT is Present. MCH (RBC) [Entitic mass] 30.8 pg 27.0-32.0 [facility] Work Phone: Neutrophils/100 WBC (Bld) 78.1 % 47-70 [facility] Work Phone: Nucleated RBC/100 WBC (Bld) [Ratio] 0 % 0-5 [facility] Work Phone: MCHC Auto (RBC) [Mass/Vol]on 09-04-2021 MCHC (RBC) [Mass/Vol] 33.9 g/dL 32-36 [facility] Work Phone: No Panel Informationon 09-04 Thyroid Stimulating Hormone (TSH) 1.19 uIU/mL 0.358-3.74 [facility] Work Phone: Platelets bldon 09-04-2021 Platelets (Bld) [#/Vol] 207 10*3/uL 150-450 [facility] Work Phone: Serum or plasma uric acid me asurement (mass/volume)on 09-04-2021 Urate [Mass/Vol] 8.0 mg/dL 3.5-7.2 [facility] Work Phone: Comment on above: The drugs N-Acetylcy steine and Metamizole may falsely depress this assay. CBC (INCLUDES DIFF/PLT)on Basophils (Bld) [#/Vol] 0.083 10*3/uL Normal 0-200 [facility] Comment on above: Performed By: #### 6 399, [id number] #### [facility] [address], [address] [place], [place] [address] Staff Midwife: Wero Conn MD Basophils/100 WBC (Bld) 1.0 % Normal [facility] Comment on above: Performed By: #### 6 399, 27454 #### [facility] [place] [id number] Staff Midwife: Wero Conn MD Eosinophils (Bld) [#/Vol] 0.216 10*3/uL Normal 15-500 [facility] Comment on above: Performed By: #### 6 399, 99238 #### [facility] of [place] [address] Staff Midwife: Wero Conn MD Eosinophils/100 WBC (Bld) 2.6 % Normal [facility] Comment on above: Performed By: #### 6 399, 16011 #### [facility] of [place] [address] Staff Midwife: Wero Conn MD Erythrocyte distribution width (RBC) [Ratio] 14.4 % Normal 11.0-15.0 [facility] Comment on above: Performed By: #### 6 399, 63113 #### [facility] of [place] [address] Staff Midwife: Wero Conn MD Hematocrit (Bld) [Volume fraction] 49.8 % Normal 38.5-50.0 [facility] Comment on above: Performed By: #### 6 399, 86356 #### [facility] of [place] [address] Staff Midwife: Wero Conn MD Hemoglobin (Bld) [Mass/Vol] 17.8 g/dL High 13.2-17.1 [facility] Comment on above: Performed By: #### 6 399, 04048 #### [facility] of [place] [address] Staff Midwife: Wero Conn MD Lymphocytes (Bld) [#/Vol] 1.486 10*3/uL Normal 850-3900 [facility] Comment on above: Performed By: #### 6 399, 12764 #### [facility] of [place] [address] Staff Midwife: Wero Conn MD Lymphocytes/100 WBC (Bld) 17.9 % Normal [facility] Comment on above: Performed By: #### 6 399, 79694 #### [facility] of [place] [address] Staff Midwife: Wero Conn MD MCH (RBC) [Entitic mass] 31.6 pg Normal 27.0-33.0 [facility] Comment on above: Performed By: #### 6 399, 06140 #### [facility] of [address], [address] [place] [address] Staff Midwife: Wero Conn MD MCHC (RBC) [Mass/Vol] 35.7 g/dL Normal 32.0-36.[address] [facility] Comment on above: Performed By: #### 6 399, 64499 #### [facility] of [address], [address] [place] [address] Staff Midwife: Wero Conn MD MCV (RBC) [Entitic vol] 88.5 fL Normal 80.0-100.0 [facility] Comment on above: Performed By: #### 6 399, 92060 #### [facility] of [address], [address] [place] [address] Staff Midwife: Wero Conn MD Monocytes (Bld) [#/Vol] 0.855 10*3/uL Normal 200-950 [facility] Comment on above: Performed By: #### 6 399, 73516 #### [facility] of [address], [address] [place] [address] Staff Midwife: Wero Conn MD Monocytes/100 WBC (Bld) 10.3 % Normal [facility] Comment on above: Performed By: #### 6 399, 92360 #### [facility] of [address], [address] [place] [address] Staff Midwife: Wero Conn MD Neutrophils (Bld) [#/Vol] 5.661 10*3/uL Normal 4898-9731 [facility] Comment on above: Performed By: #### 6 399, 84294 #### [facility] of [place] [address] Staff Midwife: Wero Conn MD Neutrophils/100 WBC (Bld) 68.2 % Normal [facility] Comment on above: Performed By: #### 6 399, 04215 #### [facility] of [address], [address] [place] [address] Staff Midwife: Wero Conn MD Platelet mean volume (Bld) [Entitic vol] 11.4 fL Normal 7.5-12.5 [facility] Comment on above: Performed By: #### 6 399, 39340 #### [facility] of [address], [address] [place] [address] Staff Midwife: Wero Conn MD Platelets (Bld) [#/Vol] 198 10*3/uL Normal 140-400 [facility] Comment on above: Performed By: #### 6 399, 99311 #### [facility] of [address], [address] [place] [address] Staff Midwife: Wero Conn MD RBC (Bld) [#/Vol] 5.63 10*6/uL Normal 4.20-5.80 [facility] Comment on above: Performed By: #### 6 399, 53664 #### [facility] of [place] [address] Staff Midwife: Wero Conn MD WBC (Bld) [#/Vol] 8.3 10*3/uL Normal 3.8-10.8 [facility] Comment on above: Performed By: #### 6 399, 81946 #### [facility] of [place] [address] Staff Midwife: Wero Conn MD RUST [employer] [facility] 01-15-2021 Albumin [Mass/Vol] 4.9 g/dL Normal 3.6-5.1 [facility] Comment on above: Order Comment: FASTI NG:NO FASTING: NO Performed By: #### 6 399, 00915 #### [facility] of [place] [address] Staff Midwife: Wero Conn MD Albumin/Globulin [Mass ratio] 2.7 {ratio} High 1.0-2.5 [facility] Comment on above: Order Comment: FASTI NG:NO FASTING: NO Performed By: #### 6 399, 20023 #### [facility] of [address], [address] [place] [address] Staff Midwife: Wero Conn MD ALP [Catalytic activity/Vol] 61 U/L Normal 35-144 [facility] Comment on above: Order Comment: FASTI NG:NO FASTING: NO Performed By: #### 6 399, 74476 #### [facility] [address], [address] [place] [address] Staff Midwife: Wero Conn MD ALT [Catalytic activity/Vol] 26 U/L Normal 9-46 [facility] Comment on above: Order Comment: FASTI NG:NO FASTING: NO Performed By: #### 6 399, 02077 #### [facility] [place] [address] Staff Midwife: Wero Conn MD AST [Catalytic activity/Vol] 23 U/L Normal 10-35 [facility] Comment on above: Order Comment: FASTI NG:NO FASTING: NO Performed By: #### 6 399, 04426 #### [facility] [place] [address] Staff Midwife: Wero Conn MD Bilirubin [Mass/Vol] 2.0 mg/dL High 0.2-1.2 [facility] Comment on above: Order Comment: FASTI NG:NO FASTING: NO Performed By: #### 6 399, 50490 #### [facility] [place] [address] Staff Midwife: Wero Conn MD Calcium [Mass/Vol] 9.1 mg/dL Normal 8.6-10.3 [facility] Comment on above: Order Comment: FASTI NG:NO FASTING: NO Performed By: #### 6 399, 05245 #### [facility] [place] [address] Staff Midwife: Wero Conn MD Chloride [Moles/Vol] 102 mmol/L Normal 98-110 [facility] Comment on above: Order Comment: FASTI NG:NO FASTING: NO Performed By: #### 6 399, 04667 #### [facility] [address], [address] [place] [address] Staff Midwife: Wero Conn MD CO2 [Moles/Vol] 30 mmol/L Normal 20-32 [facility] Comment on above: Order Comment: FASTI NG:NO FASTING: NO Performed By: #### 6 399, 75277 #### [facility] [address], [address] [place] [address] Staff Midwife: Wero Conn MD Creatinine [Mass/Vol] 1.30 mg/dL High 0.70-1.[address] [facility] Comment on above: Order Comment: FASTI NG:NO FASTING: NO Result Comment: For patients >49 years of age, the reference limit for Creatinine is approximately 13% higher for people identified as -Slovak. Performed By: #### 6 399, 24194 #### [facility] [address], [address] [place] [address] Staff Midwife: Wero Conn MD eGFR NON-AFR. SLOVAK 58 mL/min/1.73m2 Low > OR = 60 [facility] Comment on above: Order Comment: FASTI NG:NO FASTING: NO Performed By: #### 6 399, 68690 #### [facility] [address], [address] [place] [address] Staff Midwife: Wero Conn MD GFR/1.73 sq M.predicted among blacks MDRD (S/P/Bld) [Vol rate/Area] 67 mL/min/{1.73_m2} Normal > OR = 60 [facility] Comment on above: Order Comment: FASTI NG:NO FASTING: NO Performed By: #### 6 399, 04843 #### [facility] [address], [address] [place] [address] Staff Midwife: Wero Conn MD Globulin (S) [Mass/Vol] 1.8 g/dL Low 1.9-3.7 [facility] Comment on above: Order Comment: FASTI NG:NO FASTING: NO Performed By: #### 6 399, 19584 #### [facility] [address], [address] [place] [address] Staff Midwife: Wero Conn MD Glucose [Mass/Vol] 74 mg/dL Normal 65-139 [facility] Comment on above: Order Comment: FASTI NG:NO FASTING: NO Result Comment: Non-fasting reference interval Performed By: #### 6 399, 62350 #### [facility] [address], [address] [place] [address] Staff Midwife: Wero Conn MD Potassium [Moles/Vol] 4.2 mmol/L Normal 3.5-5.[address] [facility] Comment on above: Order Comment: FASTI NG:NO FASTING: NO Performed By: #### 6 399, 49845 #### [facility] [place] [address] Staff Midwife: Wero Conn MD Protein [Mass/Vol] 6.7 g/dL Normal 6.1-8.1 [facility] Comment on above: Order Comment: FASTI NG:NO FASTING: NO Performed By: #### 6 399, 04292 #### [facility] [address], [address] [place] [address] Staff Midwife: Wero Conn MD Sodium [Moles/Vol] 140 mmol/L Normal 135-146 [facility] Comment on above: Order Comment: FASTI NG:NO FASTING: NO Performed By: #### 6 399, 38117 #### [facility] [place] [address] Staff Midwife: Wero Conn MD Urea nitrogen [Mass/Vol] 17 mg/dL Normal 7-25 [facility] Comment on above: Order Comment: FASTI NG:NO FASTING: NO Performed By: #### 6 399, 20568 #### [facility] [place] [address] Staff Midwife: Wero Conn MD Urea nitrogen/Creatinine [Mass ratio] 13 mg/mg Normal 6-22 [facility] Comment on above: Order Comment: FASTI NG:NO FASTING: NO Performed By: #### 6 399, 61486 #### [facility] [address], [address] [place] [address] Staff Midwife: Wero Conn MD TSHon 01-15-2021 TSH Qn 2.91 m[IU]/L Normal 0.40-4.50 [facility] Comment on above: Performed By: #### 6 399, 81576 #### [facility] [address] , [address] Staff Midwife: Wero Conn MD NURSING PROGon 09-14-2018 Protein mass conc HNO ID: [id number]: ISABELLA Bates Rnervice: NursingAuthor Type: Registered NurseType: Nursing Progress NoteFiled: 09/14/2018 10:52 AMNote Text:[id number] Received from pacu No c/o pain Light diet to [id number] Iv removed Discharge instructions reviewed with pt and [id number] Discharged by wheelchair [facility] Protein mass conc HNO ID: [id number]: ISABELLA Hood Rnervice: (none)Author Type: Registered NurseType: Nursing Progress NoteFiled: 09/14/2018 8:11 AMNote Text:PRE OP LEARNING ASSESSMENTPROCEDURE/ROSANNA ERLINDA:EGDREADINESS TO LEARNCOGNITIVE ABILITY: Alert and orientedMOTIVATION TO LEARN: InterestedFAMILY SUPPORT: High - Very involved in pt carePATIENT LEARNS BEST BY: Individual InstructionVerbal InstructionFACTORS AFFECTING LEARNING: NonePHYSICAL LIMITATIONS AFFECTING LEARNING: NoneElectronically Signed By: Lena Barber RN, BSN In Department[facility] PT EDon 09-14-2018 PT ED HNO ID: [id number]: ISABELLA Bates Rnervice: NursingAuthor Type: Registered NurseType: Patient EducationFiled: 09/14/2018 10:51 AMNote Text:POST OP LEARNING RESPONSEINSTRUCTION PROVIDED TO: Patient and Family memberMETHOD OF INSTRUCTION: Verbal instructionPATIENT / FAMILY RESPONSE: Information received as demonstrated byinterest and questionsFOLLOW-UP PLAN: Patient instructed to call with any further issuesSUPPLEMENTAL MATERIAL: Post op discharge instructionsREFERRAL (RECOMMENDATION): NoneElectronically Signed By: Francie Taylor RN In Department: [facility] Normal [facility] SURGICAL PATHOLOGYon 018 SURGICAL PATHOLOGY [facility]: [id number] Physician: Jim Elizondo M.D. FINAL DIAGNOSIS1. Stomach, [...] submitted in one cassette.Gross examination performed at [facility], [address] [place] [address] [id number] 09/14/2018 5:44:35 PMPatient ID #: [id number] of Report: 09/15/2018Date of Procedure: 09/14/2018Date of Receipt: 09/14/2018Submitted by: Jim Elizondo M.D.Location: MEENDDiagnostic interpretation performed at [facility], [address] [place] [address]. [facility] Comment on above: Performed By: #### P ATHS ####[facility] [id number] [place], [place] [id number] STRESS TEST EXERCISEon 06-08 Protein mass conc NAME : LILIA SNOWHPID : [id number] : 1955 Gender : MaleRace : ORD : [id number] Procedure Date : Jun 08 2018 12:35:54Edit [...] : FABIAN MANSFIELDAcquired by : VERNA OLIVER [facility] Shawn 06-07-2018 CNPN Telephone ([facility]) SONY GONZALESCHRISTINAARTURO Thanh ([id number]) 1955 MDate Time Provider Department06/07/18 MARY DHILLON (RN) [facility] During your visit today, we recorded the following information about you:Mary Dhillon RN, RN 06/07/2018 1:49 PM SignedSpoke with patient regarding reminder for stress test tomorrow and giveninstructionsAllerg ies As of Date: 06/07/2018(No Known Allergies)Date Reviewed: 05/27/2018Reviewed by: Fabian Mansfield - Fully AssessedReason for Visit: Reminder Call [[id number]]Prescriptions as of 06/07/2018 Sig: LEVOTHYROXINE 88 MCG [...] FOR* Status:Closed by MARY DHILLON on 06/07/18 [facility] MRI STERNUM WO/W IVCONon MRI STERNUM WO/W [...] cysts.IMPRESSION:Minima l degenerative changes of the sternoclavicular joints.Paddock Judge : JULISSA Transcribe Date/Time: Dec 01 2017 9:31ADictated by : MIKE PATRICIO MDThis examination was interpreted and the report reviewed and electronically signed by: MIKE APTRICIO MD on Dec 01 2017 10:09AM [id number] CN Normal [facility] CT CHEST W IVCONon 8 CT CHEST W IVCON * * *Final Report* * *DATE OF EXAM: Nov 06 2017 7:56AM [facility] 0539 - CT CHEST W IVCON / REASON: multiple diagnoses * * * * Physician Interpretation * * * * EXAMINATION: CHEST CT WITH CONTRAST: 9-85-63Bfnpbgdpty: 62-year-old male with requisition stating solitary pulmonary nodule. Shortness of breath. Chest pain. Sternal pain.Technique: Spiral CT acquisition of the chest from the thoracic inlet to the upper abdomen following IV contrast.M: [id number]: 50 mL Omnipaque 300 IVCT Dose-Length Product: 490 mGy*cmCT Dose Reduction Employed: mAs-kVp adjusted based on patient size-ageCOMPARISON:Two view chest x-ray: 08-30-16CT chest without IV contrast: 04-17-16, 44-60-23QXIVRJJ:Limitat ions: None.Lines, tubes, and devices: None.Lung parenchyma [...] NAVA MD on Nov 07 2017 12:46PM [id number] [facility] SURGICAL PATHOLOGYon 017 SURGICAL PATHOLOGY Specimen #: [id number] Physician: REYNALDO VAUGHN MD FINAL DIAGNOSISA. Skin,right [...] sectionedto reveal a white pasty cut surface. Hemodialysis Patient Care Specialist sections are submittedin one cassette.Gross examination performed at [facility], [address] [place] [address] [id number] 08/10/2017 2:14:35 AMPatient ID #: [id number] of Report: 08/10/2017Date of Procedure: 08/09/2017Date of Receipt: 08/09/2017Submitted by: REYNALDO VAUGHN MDLocation: Diagnostic interpretation performed at [facility], [address] [place] [id number]. Normal [facility] Comment on above: Performed By: #### S ####See report for performing lab information. Vital Signs Date Time Vital Sign Value Performing Clinician Facility 05-25-2025 09:31-0400 Body height 191.77 cm Amina Jaimes [employer] Work Phone: [facility] 05-25-2025 09:31-0400 Body mass index (BMI) [Ratio] 30.1 kg/m2 Amina Jaimes [employer] Work Phone: [facility] 05-25-2025 09:31-0400 Body weight 110.67 kg Amina Jaimes [employer] Work Phone: [facility] 01-29-2025 17:05-0400 Body mass index (BMI) [Ratio] 30.8 kg/m2 Amina Jaimes [employer] Work Phone: [facility] 01-29-2025 17:05-0400 Body temperature 98.1 [degF] Amina Jaimes [employer] Work Phone: [facility] 01-29-2025 17:05-0400 Body weight 113.39 kg Aminajamar BoldenJaimes [employer] Work Phone: [facility] 01-29-2025 17:05-0400 Diastolic blood pressure 80 mm[Hg] Amina Jaimes [employer] Work Phone: [facility] 01-29-2025 17:05-0400 Heart rate 70 /min Amina Jaimes [employer] Work Phone: [facility] 01-29-2025 17:05-0400 Respiratory rate 18 /min Amina Jaimes [employer] Work Phone: [facility] 01-29-2025 17:05-0400 SaO2% (BldA) [Mass fraction] 98 % Amina Jaimes [employer] Work Phone: [facility] 01-29-2025 17:05-0400 Systolic blood pressure 128 mm[Hg] Amina ANTONIO Work Phone: [facility] 01-07-2024 16:27-0400 Body height 190.5 cm [facility] 01-07-2024 16:27-0400 Body mass index (BMI) [Ratio] 32 kg/m2 [facility] 01-07-2024 16:27-0400 Body temperature 98.1 [degF] [facility] 01-07-2024 16:27-0400 Body weight 116.11 kg [facility] 01-07-2024 16:27-0400 Diastolic blood pressure 80 mm[Hg] [facility] 01-07-2024 16:27-0400 Heart rate 64 /min [facility] 01-07-2024 16:27-0400 Respiratory rate 18 /min [facility] 01-07-2024 16:27-0400 SaO2% (BldA) [Mass fraction] 95 % [facility] 01-07-2024 16:27-0400 Systolic blood pressure 138 mm[Hg] [facility] 11-23-2023 17:59-0500 Body mass index (BMI) [Ratio] 31.8 kg/m2 [facility] 11-23-2023 17:59-0500 Body temperature 98.1 [degF] [facility] 11-23-2023 17:59-0500 Body weight 115.66 kg [facility] 11-23-2023 17:59-0500 Diastolic blood pressure 88 mm[Hg] [facility] 11-23-2023 17:59-0500 Heart rate 62 /min [facility] 11-23-2023 17:59-0500 Respiratory rate 18 /min [facility] 11-23-2023 17:59-0500 SaO2% (BldA) [Mass fraction] 94 % [facility] 11-23-2023 17:59-0500 Systolic blood pressure 134 mm[Hg] [facility] 01-25-2023 17:37-0400 Body height 190.5 cm [facility] 12-24-2022 17:52-0400 Body mass index (BMI) [Ratio] 32.5 kg/m2 [facility] 12-24-2022 17:52-0400 Body temperature 98.1 [degF] [facility] 12-24-2022 17:52-0400 Body weight 117.93 kg [facility] 12-24-2022 17:52-0400 Diastolic blood pressure 90 mm[Hg] [facility] 12-24-2022 17:52-0400 Heart rate 105 /min [facility] 12-24-2022 17:52-0400 Respiratory rate 18 /min [facility] 12-24-2022 17:52-0400 SaO2% (BldA) [Mass fraction] 96 % [facility] 12-24-2022 17:52-0400 Systolic blood pressure 158 mm[Hg] [facility] 10-08-2022 18:08-0500 Body height 190.5 cm [facility] 10-08-2022 18:08-0500 Body mass index (BMI) [Ratio] 31.5 kg/m2 [facility] 10-08-2022 18:08-0500 Body temperature 98.2 [degF] [facility] 10-08-2022 18:08-0500 Body weight 114.3 kg [facility] 10-08-2022 18:08-0500 Diastolic blood pressure 90 mm[Hg] [facility] 10-08-2022 18:08-0500 Heart rate 68 /min [facility] 10-08-2022 18:08-0500 Respiratory rate 18 /min [facility] 10-08-2022 18:08-0500 SaO2% (BldA) [Mass fraction] 95 % [facility] 10-08-2022 18:08-0500 Systolic blood pressure 150 mm[Hg] [facility] 07-22-2022 13:56-0400 Body mass index (BMI) [Ratio] 30.31 kg/m2 Bernarda Moses MD Work Phone: [facility] 07-22-2022 13:56-0400 Body temperature 97.59 [degF] Bernarda Moses MD Work Phone: [facility] 07-22-2022 13:56-0400 Body weight 112.95 kg Bernarda Moses MD Work Phone: [facility] 07-22-2022 13:56-0400 Diastolic blood pressure 89 mm[Hg] Bernarda Moses MD Work Phone: [facility] 07-22-2022 13:56-0400 Heart rate 76 /min Bernarda Moses MD Work Phone: [employer] 07-22-2022 13:56-0400 Respiratory rate 16 /min Bernarda Moses MD Work Phone: [facility] 07-22-2022 13:56-0400 Systolic blood pressure 139 mm[Hg] Bernarda Moses MD Work Phone: [facility] 06-24-2022 11:06-0400 Body mass index (BMI) [Ratio] 30.19 kg/m2 Bernarda Moses MD Work Phone: [facility] 06-24-2022 11:06-0400 Body temperature 97.3 [degF] Bernarda Moses MD Work Phone: [facility] 06-24-2022 11:06-0400 Body weight 112.49 kg Bernarda Moses MD Work Phone: [facility] 06-24-2022 11:06-0400 Diastolic blood pressure 95 mm[Hg] Bernarda Moses MD Work Phone: [facility] 06-24-2022 11:06-0400 Heart rate 92 /min Bernarda Moses MD Work Phone: [facility] 06-24-2022 11:06-0400 Respiratory rate 18 /min Bernarda Moses MD Work Phone: [facility] 06-24-2022 11:06-0400 Systolic blood pressure 129 mm[Hg] Bernarda Moses MD Work Phone: [facility] 12-22-2021 16:12-0400 Body height 190.5 cm [facility] Work Phone: 12-22-2021 16:12-0400 Body mass index (BMI) [Ratio] 32.2 kg/m2 [facility] Work Phone: 12-22-2021 16:12-0400 Body temperature 97.9 [degF] [facility] Work Phone: 12-22-2021 16:12-0400 Body weight 117.02 kg [facility] Work Phone: 12-22-2021 16:12-0400 Diastolic blood pressure 94 mm[Hg] [facility] Work Phone: 12-22-2021 16:12-0400 Heart rate 79 /min [facility] Work Phone: 12-22-2021 16:12-0400 Respiratory rate 18 /min [facility] Work Phone: 12-22-2021 16:12-0400 SaO2% (BldA) [Mass fraction] 96 % [facility] Work Phone: 12-22-2021 16:12-0400 Systolic blood pressure 138 mm[Hg] [facility] Work Phone: 09-04-2021 15:08-0500 Body mass index (BMI) [Ratio] 31.7 kg/m2 [facility] Work Phone: 09-04-2021 15:08-0500 Body temperature 98.2 [degF] [facility] Work Phone: 09-04-2021 15:08-0500 Body weight 115.21 kg [facility] Work Phone: 09-04-2021 15:08-0500 Diastolic blood pressure 70 mm[Hg] [facility] Work Phone: 09-04-2021 15:08-0500 Heart rate 89 /min [facility] Work Phone: 09-04-2021 15:08-0500 Respiratory rate 18 /min [facility] Work Phone: 09-04-2021 15:08-0500 SaO2% (BldA) [Mass fraction] 95 % [facility] Work Phone: 09-04-2021 15:08-0500 Systolic blood pressure 120 mm[Hg] [facility] Work Phone: 09-08-2018 14:00-0500 Body weight Measured MARYAM MEDINA [facility] ital Encounters Encounter Date Encounter Type Care Provider Facility Start: 05-25-2025 End: 05-25-[address] Yobani Garcia MD -[facility] Start: 05-25-2025 End: 05-25-2025 ambulatory Amina Jaimes [employer] Work Phone: -[facility] Start: 02-05-2025 ambulatory AMINA JAIMES Facil ity:[facility] Start: 02-05-2025 End: 02-05-2025 Subsequent hospital visit by physician Xr [facility] Comment on above: Low back pain, unspe cified [M54.50] Start: 07-26-2024 End: 07-26-2024 ambulatory Amina Jaimes NP Facility:[facility] Start: 07-14-2024 End: 07-14-2024 ambulatory WILBERTO BLAKE MD Facility:[facility] Start: 05-14-2024 End: 05-15-2024 ambulatory OSKAR GALVAN Facility:[id number] Start: 01-13-2024 End: 01-13-2024 ambulatory [facility] Work Phone: Start: 01-13-2024 End: 01-13-2024 Patient encounter procedure [facility], [facility] Work Phone: Start: 11-25-2023 Telephone encounter Bernarda Moses MD Other Phone: [facility] Comment on above: Left Message To Call Back Start: 01-25-2023 End: 01-25-2023 ambulatory [facility] Work Phone: Start: 01-25-2023 End: 01-25-2023 Patient encounter procedure [facility]Labor[facility], Specimen Start: 10-08-2022 End: 10-08-2022 ambulatory [facility] Work Phone: Start: 10-08-2022 End: 10-08-2022 Patient encounter procedure [facility], Specimen Start: 07-22-2022 End: 07-22-2022 Office outpatient visit 25 minutes Bernarda Moses MD Work Phone: [facility] Comment on above: Chest pain, exertion al (Primary Dx); VERDUZCO (dyspnea on exertion); Stage 3a chronic kidney disease (HCC); Body mass index (BMI) 30.0-30.9, adult Start: 07-13-2022 Telephone encounter Bernarda Moses MD Work Phone: [facility] Comment on above: Medical Record Revie w Start: 07-13-2022 ambulatory Bernarda Moses [facility] Start: 06-29-2022 Telephone encounter Bernarda Moses MD Work Phone: [facility] Start: 06-24-2022 End: 06-24-2022 Patient encounter procedure Bernarda Moses MD Work Phone: [facility] Comment on above: Encounter for long-t erm (current) use of medications (Primary Dx); Hypercholesteremia; Benign prostatic hyperplasia, unspecified whether lower urinary tract symptoms present; Idiopathic gout, unspecified chronicity, unspecified site; Hypothyroidism due to acquired atrophy of thyroid; Dyspnea, unspecified type; Medicare annual wellness visit, subsequent; Body mass index (BMI) 30.0-30.9, adult Start: 12-22-2021 End: 12-22-2021 Patient encounter procedure [facility], Specimen Start: 09-04-2021 End: 09-04-2021 Patient encounter procedure [facility], Specimen Start: 09-14-2018 End: 09-14-2018 [facility] Start: 06-08-2018 Patient encounter procedure FABIAN [facility] Start: 11-30-2017 Patient encounter procedure [facility] Start: 11-06-2017 Patient encounter procedure [facility] Procedures Date Procedure Procedure Detail [...] RSV Vaccine (1 - 1-dose 75+ series) [facility] Start: 08-05-2028 Lipid panel Cholesterol [facility] Start: 06-24-2027 Lipid panel [facility] Start: 06-24-2027 Prostate specific antigen measurement Prostate Cancer Screening Discussion [facility] Start: 09-08-2026 Lipid panel Cholesterol [facility] Start: 01-30-2026 Tetanus vaccination Tetanus (T d or Tdap) Booster [facility] Start: 01-30-2026 Urine microalbumin profile DTaP,Tdap,Td Vaccine (2 - Td or Tdap) [facility] Start: 09-18-2025 Screening for malign ant neoplasm of colon [facility] Start: 06-24-2025 Diabetes Screening Diabetes Screenin g [facility] Start: 05-28-2025 Influenza vaccination Influenz a Vaccine (Season Ended) [facility] Start: 05-25-2025 X-ray of ankle, thre e or more views Ankle min 3 Views [facility] Start: 05-25-2025 XR Ankle GE 3 Views [facility] Start: 09-27-2024 Advance Directive Discussion Advance Directive Discussion [facility] Start: 05-28-2024 Covid-19 Vaccine ( season) Covid-19 Vaccine ( season) [facility] Start: 06-24-2023 Prostate specific antigen measurement Prostate Cancer Screening (shared decision making) [facility] Start: 06-24-2023 Thyroid stimulating hormone measurement TSH [facility] Start: 05-28-2023 Annual Wellness Visi t (G0439) Annual Wellness Visit (G0439) [facility] Start: 05-28-2023 COVID-19 Vaccine ( season) COVID-19 Vaccine ( season) [facility] Start: 05-28-2023 Influenza vaccination Influenza Vacc ine (#1) [facility] Start: 06-27-2022 Influenza vaccination Influenza Vacc ine (#1) [facility] Start: 11-08-2021 COVID-19 Vaccine (3 - Booster for Sally series) COVID-19 Vaccine (3 - Booster for Sally series) [facility] Start: 09-10-2021 Screening for malign ant neoplasm of colon [facility] Start: 2021 [facility] Start: 11-30-2020 Thyroid stimulating hormone measurement TSH [facility] Start: 2016 Hepatitis B (HBV) Vaccine (optional start 60+ years) Hepatitis B (HBV) Vaccine (optional start 60+ years) [facility] Start: 2016 RSV vaccine (optiona l 60+ years) RSV vaccine (optional 60+ years) [facility] Start: 2006 Measurement of occul t blood in single stool specimen FIT [facility] Start: 2006 Pneumococcal Vaccine : 50+ (1 of 1 - PCV) Pneumococcal Vaccine: 50+ (1 of 1 - PCV) [facility] Start: 2006 Shingles (RZV) Vacci ne (1 of 2) Shingles (RZV) Vaccine (1 of 2) [facility] Start: 2006 Shingrix Vaccine (1 of 2) Shingrix Vaccine (1 of 2) [facility] Start: 2001 Screening for malign ant neoplasm of colon [facility] Start: 1975 Hepatitis A (HAV) Vaccine (optional start 19+ years) Hepatitis A (HAV) Vaccine (optional start 19+ years) [facility] Start: 1974 Anxiety Screening Anxiety Screening [facility] Start: 1974 [facility] Comment on above: Ordered: 06/24/2022 Assay of thyroid stimulating hormone tsh [facility] Comment on above: Ordered: 06/24/2022 Basic metabolic 2000 panel - Serum or Plasma [facility] Comment on above: Ordered: 06/24/2022 Hepatic function panel [employer] Comment on above: Ordered: 06/24/2022 Lipid 1996 panel - Serum or Plasma [facility] Comment on above: Ordered: 06/24/2022 Prostate specific Ag panel - Serum or Plasma [facility] [employer] Work Phone: Comment on above: Ordered: 06/24/2022 Immunizations Immunization Date Immunization Notes Care Provider [facility] 09-13-2021 Moderna Monovalent (12+ yrs) COVID-19 vaccine, mRNA, spike protein, LNP, PF, 100 mcg/0.5 mL (ZQL=296) Bernarda Moses MD Other Phone: [employer] Work Phone: 02-12-2021 Sally SARS-COV-2 (COVID-19) vaccine, vector non-replicating, recombinant spike protein-Ad26, preservative free, 0.5 mL (FOX=211) Bernarda Moses MD Work Phone: [employer] [facility] 01-31-2016 tetanus toxoid, reduced diphtheria toxoid, and acellular pertussis vaccine, adsorbed Bernarda Moses MD Work Phone: [employer] Work Phone: Payers Date Payer Category Payer Medicare (Managed Care) [facility] OPT CARE HMO [id number] 2024 Self-pay [id number] 2024 Unknown [id number] 2021 Unknown SP/UNINSURED PEN DING FINANCIAL PROGRAM EVALUATION 2021-Present Other [id number] 2021 Medicare [facility] E - MEDICARE AAR MEDICARE COMPLETE [id number] 2021-Present [phone] [address] [address] [place] [address] Medicare HMO [id number] 2008 Private Health Insurance 1955 Unknown [id number] 1955 Unknown [id number] 1955 Unknown [id number] Private Health Insurance [id number] Unknown [id number] Unknown [id number] Unknown [id number] Unknown [id number] Unknown [id number] Unknown [id number] Social History Date Type Detail Facility Start: 04-23-2021 End: 03-08-2023 Tobacco smoking status NHIS Unknown if ever smoked [facility] Start: 11-10-2020 Spouse/ Signif icant Other [facility] Start: 1955 Sex Assigned At Male [facility] Start: 08-30-2019 End: 05-22-2025 Tobacco smoking status NHIS Never smoked tobacco [facility] Start: 10-27-2017 End: 08-30-2019 Tobacco use and exposure Smokeless tobacco non-user [facility] Start: 06-24-2022 End: 07-22-2022 Alcohol intake Lifetime non-drinker (finding) [facility] Start: 08-30-2019 History SDOH Alcohol Frequency 1 [facility] Start: 1955 Sex Assigned At [facility] file [facility] Start: 06-14-2022 End: 06-24-2022 Exposure to SARS-CoV-2 (event) Not sure [facility] Start: 07-11-2021 End: 07-25-2021 Gender identity Not on file [facility] Work Phone: Start: 07-25-2021 Alcoholic beverage intake Current non-drinker of alcohol (finding) [facility] Start: 07-11-2021 End: 07-25-2021 History of Social function [facility] National Score (1-100), lower number is lower risk Not on file [facility] Functional Status Date Assessment Result Facility 10-10-2014 Are you deaf, or do you have serious difficulty hearing No 10/10/2014 9:24 AM Juliana Tinajero Ma [facility] 10-10-2014 Are you blind, or do you have serious difficulty seeing, even when wearing glasses No 10/10/2014 9:24 AM Juliana Tinajero Ma No [facility] 10-10-2014 Do you have serious difficulty walking or climbing stairs No 10/10/2014 9:24 AM Juliana Tinajero Ma [facility] 10-10-2014 Do you have difficul ty dressing or bathing No 10/10/2014 9:24 AM Juliana Tinajero Ma [facility] 10-10-2014 Because of a physica l, mental, or emotional condition, do you have difficulty doing errands alone such as visiting a physician's office or shopping No 10/10/2014 9:24 AM Juliana Tinajero Ma [facility] Mental Status Date Assessment Result Facility 10-10-2014 Because of a physica l, mental, or emotional condition, do you have serious difficulty concentrating, remembering, or making decisions No 10/10/2014 9:24 AM MICHELLE IslasJuliana castillo Ma No [facility] Clinical Notes 07-11-2021 to 02-05-2025 Belen Peterson [...] PATIENT PRESENTS WITH AN IMPLANTABLE OR ATTACHED CLINICAL PSYCHIATRIST: No RADIOLOGY DEPARTMENT: General X-ray: Exam(s) Completed: Spine X-Ray(s): Cervical AP / LAT / OBL and Lumbar AP / LAT / L5-S1 / OBL PERIPHERAL IV DATA: Not applicable SIGNED BY: RT Funmi(Jc) February 05, 2025 3:13 PM documented in this encounter [facility] 02-05-2025 Note HNO ID: [id number] Author: BLEEN PETERSON RT(Jc) Service: ? Author Type: Technologist [...] PATIENT PRESENTS WITH AN IMPLANTABLE OR ATTACHED CLINICAL PSYCHIATRIST: No RADIOLOGY DEPARTMENT: General X-ray: Exam(s) Completed: Spine X-Ray(s): Cervical AP / LAT / OBL and Lumbar AP / LAT / L5-S1 / OBL PERIPHERAL IV DATA: Not applicable SIGNED BY: Belen Peterson, RT(R) February 05, 2025 3:13 PM [facility] 01-29-2025 Evaluation note Diagnosis Onset Date Resolution Cervical muscle strain acute Ma 2024 4:39pm Torticollis, acquired acute January 29, 2025 4:39pm [facility] [employer] Work Phone: 1(775) 359-416808-19-2024 NoteCommunication Log Entered On: 05/15/2024 15:38 EDT Performed On: 05/15/2024 15:38 EDT by Cha Pham RN Call Log Physician Call Log Physician requesting : KELLIE RODRIGUEZ DO Patient Location : 166 Physician being called : DAVE RAMOS MD Reason : Consult Telephone number : [employer] Time Call Placed : 15:43 EDT Comment : 05/14/24 notified via Cha Humphries RN - 05/15/2024 15:38 [facility] 05-15-2024 NoteNursing Discharge Summary Entered On: 05/15/2024 15:31 EDT Performed On: 05/15/2024 15:30 EDT by Cha Pham RN, DC Information Discharged to : Home Reg VTE Warfarin at Discharge : No Cha Pham RN - 05/15/2024 15:30 EDT Education [employer] Methodology : Explanation Barriers to Learning : None evident Cha Pham RN - 05/15/2024 15:30 [facility] 05-15-2024 NotePT Inpatient Evaluation Acute Entered On: [...] Constant Order, Current ACLS Provider may, Initiate [place] [employer] Advanced Cardiac Life support Algorithm per patient code status, Ordered Communication CONSTANT Order, 05/14/2024 13:40:00 EDT, Constant Order, STAT EKG for Chest Pain, STAT ABGs for Acute Respiratory Distress, STAT Potassium/Magnesium for any significant change in condition/rhythm, Ordered Notify Provider, 05/14/2024 13:40:00 EDT, Constant Order, Contact OBS Unit PA/[employer] for any change in clinical status, positive test results, abnormal rhythm, or EKG changes, Ordered Oxygen Therapy, 05/14/2024 13:40:00 EDT, Nasal Cannula, 2-3L, PRN, Ordered Level of Care Order, 05/14/2024 12:37:00 EDT, Medical Outpatient with Observation Services, [facility], Ordered Transfer Care of Patient to [...] Level : Complete independe (more content not included)...[facility]08-19-2024 NotePatient: ARTURO SNOW Age: 68 years [...] was called and he was transported to [place] ED where he believes he received a [...] (05/15/24) Magnesium: 1.9 mg/dL (more content not included)...[facility]08-18-2024 NoteCommunication Log Entered On: 05/14/2024 16:58 EDT Performed On: 05/14/2024 16:58 EDT by Gerri Uriarte RN Call Log Physician Call Log Physician requesting : KELLIE RODRIGUEZ DO Patient Location : 166 Physician being called : DAVE RAMOS MD Reason : Consult Telephone number : donis Time Call Placed : 15:43 EDT Comment : 05/14/24 notified via Gerri Donis RN - 05/14/2024 16:58 [facility] 05-14-2024 NoteED Nursing Discharge Summary Entered On: 05/14/2024 15:47 EDT Performed On: 05/14/2024 15:15 EDT by Scarlett Melton RN [place] Information [id number] ED IV's : Continue upon transfer ED IV Site Assessment : Yes, Completed in [facility] ED Vitals Completed : Yes ED Final Assessment Completed : N/A ED Progress Note Completed : Yes Complete all PRN/Pain response forms? : N/A ED Disassociate Patient from Monitor : Yes Updated Depart Time : Yes ED Belongings sent w patient [id number] : Not applicable Scarlett Melton RN - [...] Scarlett Melton RN - 05/14/2024 15:46 [facility] Note Communication Log Entered On: 05/14/2024 15:43 EDT Performed On: 05/14/2024 15:43 EDT by Ines Jefferson Call Log Physician Call Log Physician requesting : KELLIE RODRIGUEZ DO Patient Location : 166 Physician being called : DAVE RAMOS MD Reason : Consult Telephone number : donis Time Call Placed : 15:43 EDT Comment : 05/14/24 notified via Ines Valadez - 05/14/2024 15:43 [facility]-18-2024 NoteCommunication Log Entered On: 05/14/2024 15:43 EDT Performed On: 05/14/2024 15:42 EDT by Ines Jefferson Call Log Physician Call Log Physician requesting : KELLIE RODRIGUEZ DO Patient Location : 166 Physician being called : DAVE RAMOS MD Reason : Consult Telephone number : donis Time Call Placed : 15:43 EDT Comment : 05/14/24 notified via Ines Valadez - 05/14/2024 15:42 [facility]-18-2024 NoteImmunization Screening Entered On: 05/14/2024 15:39 EDT Performed On: 05/14/2024 15:37 EDT by Gerri Uriarte RN Immunization Screening Immunizations Current : Yes Last Tetanus : Unknown COVID-19 Fully Vaccinated : Yes COVID-19 Vaccine Received : Unknown COVID Booster Received : No Gerri Uriarte RN - 05/14/2024 15:37 [facility]Order Comment: Order entered secondary to inpatient admission.Result Comment: [id number] NoteOutreach Team ([phone]) Contact Details: Outbound call. Left Message. Care Gaps Scheduling Medicare AWV / PCP Visit: AWV due Eye Exam: Not due [facility] [id number] History of Present illness Narrative* Bernarda Moses [...] EXTERNAL SERVICE REQUEST FOR CARE OUTSIDE [facility] - EXERCISE STRESS ECHOCARDIOGRAM SERVICE REQUEST VERDUZCO (dyspnea on exertion) - EXTERNAL SERVICE REQUEST FOR CARE OUTSIDE [facility] - EXERCISE STRESS ECHOCARDIOGRAM SERVICE REQUEST Stage 3a chronic kidney disease (HCC) Other orders - gabapentin (NEURONTIN) 300 MG capsule; Take 1 Capsule by mouth at bedtime for 180 days. * Loretta Barnes - 07/22/2022 1:55 PM EDT Identification was verified by patient verbalizing his name and date of . documented in this [id number] Telephone encounter Note* Telephone Encounter - Emily Donahue - 07/13/2022 10:45 AM EDT Care gaps scheduling Health maintenance: Medicare AWV/PCP Visit not due Eye Exam:not due Foot Exam:not due Annual Bloodwork:not due CHRISS:n/a FIT:not due [id number] Miscellaneous Notes* Telephone Encounter - Emily Donahue - 07/13/2022 10:45 AM EDT Care gaps scheduling Health maintenance: Medicare AWV/PCP Visit not due Eye Exam:not due Foot Exam:not due Annual Bloodwork:not due CHRISS:n/a FIT:not due documented in this [id number] Telephone encounter Note* Telephone Encounter - John Blackmon - 06/29/2022 11:24 AM EDT Patient returned clinic call. Informed of message per notes below. Patient verbalized understandingand voiced no further questions. [id number] Miscellaneous Notes* Telephone Encounter - Cherelle Blackmonphilipp [...] slight decrease in kidney function. Please avoid gfkz-adb-mvekeew NSAIDs such as ibuprofen and Aleve. Please stay well hydrated. documented in this [id number] Telephone encounter Note* Telephone Encounter - Alejandra Oglesby - 06/29/2022 10:43 AM EDT I have attempted to contact this patient by phone to return their call, but there is no answer. Will try again later. LMTCB If pt calls back please go over lab message below Thank you [id number] Telephone encounter Note* Telephone Encounter - Alejandra Oglesby - 06/29/2022 10:41 AM EDT ----- Message from Bernarda Moses MD sent at 06/25/2022 12:52 PM EDT ----- Your blood counts, liver function, blood sugar, thyroid function and PSA were normal. The cholesterol was again elevated. Please watch fats in the diet. There was a slight decrease in kidney function. Please avoid vjdv-pjz-ndhtpxb NSAIDs such as ibuprofen and Aleve. Please stay well hydrated. [id number] History of Present illness Narrative* Meri Urena [...] history, Family history and current medications including rzee-ivq-fwynxsw medications and supplements): Patient Care Team: Bernarda [...] / Excessive Appetite?: Not at all Self Antelope?: Not at all Trouble Concentrating?: Not at [...] EXTERNAL SERVICE REQUEST FOR CARE OUTSIDE THE [facility] 1. Encounter for long-term (current) use of medications 2. Hypercholesteremia 3. Benign prostatic hyperplasia, unspecified whether lower urinary tract symptoms present 4. Idiopathic gout, unspecified chronicity, unspecified site 5. Hypothyroidism due to acquired atrophy of thyroid 6. Dyspnea, unspecified type 7. Medicare annual wellness visit, subsequent Additional concerns: labs, refills documented in this [id number] Instructions* Patient Instructions* Bernarda Moses MD - 06/24/2022 10:23 AM EDT Personalized Preventive for Arturo Law Christian - 06/24/2022 Other Preventive Recommendations: Covid booster A preventive eye exam performed by an real estate management specialist is recommended every 1-2 years to screen for glaucoma, cataracts, macular degeneration, and other eye disorders A preventive dental visit is recommended every 6 months Try to get at least 150 minutes of exercise per week or 10,000 steps per day on a pedometer Order FREE Exercise and Physical Activity book from [employer] on Agin1-844-537-6539 orhttp://order.crow.nih.gov/health/publication/order/BK004 You need 9448-9833 mg of calcium and 3120-2698 IU of vitamin D per day - [...] a bicycle or motorcycle documented in this [id number] NoteHNO ID: [id number] Author: Miguel Lyn DPM Service: ? Author [...] at this time. PCP: Oskar Galvan MD: [facility] PAST MEDICAL HISTORY Diagnosis Date - Disorder [...] come back as needed. Miguel Lyn DPM, [facility] [address] [place] [address] W [email or web address] F [email or web address] E [email or web address]10-15-2021 NoteHNO ID: [id number] Author: Miguel Lyn DPM Service: ? Author [...] ICD-10-CM 1. Foot sprain, right, initial encounter S93.050X 2. Edema of right foot R60.0 3. [...] in the resident?s note. Miguel Lyn DPM, [facility] [address] [place] [address] W [email or web address] O F M [email or web address]* Diagnosis Onset Date Resolution Status Gout acute Left foot pain acute Hypothyroidism (acquired) mitesh gary BPH (benign prostatic hyperplasia) acute Epigastric abdominal pain ac jamul GERD (gastroesophageal reflux disease) acute Hypertension chronic Hypothyroidism (acquired) mitesh gary [facility] Work Phone: Evaluation note* Diagnosis Encounter for [...] Date Resolution Status Gout acute Hypertension chronic [facility] Work Phone: Evaluation note* Diagnosis Onset Date Resolution Status Gout acute Hypertension chronic Maxillary sinusitis, acute a cute Hypertension chronic BPH (benign prostatic hyperplasia) acute GERD (gastroesophageal reflux disease) acute Hypothyroidism (acquired) ch cookie [facility] Work Phone: Evaluation note* Diagnosis Onset Date Resolution Status Neck pain acute Sebaceous cyst acute Neck pain acute Sebaceous cyst acute [facility] Work Phone: Reason for referral (narrative)* Tests/Procedures (Routine) - Authorized Specialty Diagnoses / Procedures Referred By Contac t Referred To Contact Diagnoses Dyspnea, unspecified type Bernarda Moses MD [address] [place] [address] [place] [address] Referral ID Status Reason Start Date Expiration Date V isits Requested Visits Authorized [id number] Authorized 06/24/2022 06/24/2023 3 3 Comments CXR: PA and lat [facility] for referral (narrative)* Tests/Procedures (Routine) - Pending Review Specialty Diagnoses / Procedures Referred By Contact Referred To Contact Cardiovascular Testing Diagnoses Chest pain, exertional VERDUZCO (dyspnea on exertion) Bernarda Moses MD [address] [place] [address] [place] [address] [facility] CARD NON INVASIVE [address] [place] [address] [place] [address] Referral ID Status Reason Start Date Expiration Date V isits Requested Visits Authorized [id number] Pending Review 07/22/2022 07/22/2023 1 1 Scheduling [...] to ask your physician or the staff manager of operations when you arrive for your test.. EXERCISE [...] calling the [facility] at [phone] (BEAT). If you have any questions, please call [facility]. If you are unable to keep this appointment, please notify [facility]. You may cancel your appointment using [facility] or by phone. Please plan to arrive [...] VERDUZCO (dyspnea on exertion) Bernarda Moses MD [address] [place] [address] [place] [address] Referral ID Status Reason Start Date Expiration Date V isits Requested Visits Authorized [id number] Authorized 07/22/2022 07/22/2023 3 3 Comments Stress echocardiogram [facility] (narrative)No reason for referral information availableNelliston Medical Services Work Phone: Summary Purpose Family History No Family History Records Found Relationship Condition Age at Onset Recorded Date/T george Not Specified Malignant neoplasm of lung Unknown Hypertension Unknown Disorder of thyroid Unknown Advance Directives No Advanced Directives Records Found Advance Directive Response Recorded Date/ Time Living Will No November 10 9:44pm Power of Interactive Art Director No November 10, 2020 9:44pm Advance Directive Response Recorded Date/ Time Living Will No November 10 8:44pm Power of Interactive Art Director No November 10, 2020 8:44pm Chief Complaint [...] section and content) DATE CREATED AUTHOR 03/22/2018 [facility] DATE CREATED AUTHOR AUTHOR'S ORGANIZ ATION 09/18/2018 [facility] DATE CREATED AUTHOR AUTHOR'S ORGANIZ ATION 01/17/2021 [facility] DATE CREATED AUTHOR AUTHOR'S ORGANIZ ATION 10/22/2021 [facility] DATE CREATED AUTHOR AUTHOR'S ORGANIZ ATION 07/21/[address] [facility] DATE CREATED AUTHOR AUTHOR'S ORGANIZ ATION 11/27/2023 [facility] DATE CREATED AUTHOR AUTHOR'S ORGANIZ ATION 07/16/2024 [facility] DATE CREATED AUTHOR AUTHOR'S ORGANIZ ATION 02/10/2025 [facility] DATE CREATED AUTHOR AUTHOR'S ORGANIZ ATION 05/07/2025 [facility] DATE CREATED AUTHOR AUTHOR'S ORGANIZ ATION 05/26/2025 [facility] Goals (unrecognized section and content) Goals [...] Care Teams (unrecognized sec tion and content) Otr Flatbed Driver Relationship Specialty Start Date End Date Surso, Bernarda, MD [address] [facility] [address] [place] [address] PCP - General Family Medicine 09/08/21 Otr Flatbed Driver Relationship Specialty Start Date End Date Bernarda Moses MD [address] [place] [address] [place] [address] PCP - General Family Medicine 09/08/21 Otr Flatbed Driver Relationship Specialty Start Date End Date Bernarda Moses MD [address] [place] [address] [place] [address] PCP - General Family Medicine 09/08/21 Otr Flatbed Driver Relationship Specialty Start Date End Date Bernarda Moses MD [address] [place] [address] [place] [address] PCP - General Family Medicine 09/08/21 Team Status: Active Member Role Status Dates Dr. Mini Alejandro MD Primary Care Provider Active Team Status: Inactive Member Role Status Dates Dr. Mini Alejandro MD Primary Care Provider, Refer ring Provider Active Amina Jaimes [employer], [employer] Attending Provider Active Team Status: Inactive Member Role Status Dates Dr. Mini Alejandro MD Primary Care Provider Active Amina Jaimes [employer], [employer] Attending Provider Active Team Status: Active Member Role Status Dates Amina Jaimes [employer] MANAGER, [employer] Primary Care Provider Active Team Status: Inactive Member Role Status Dates Amina Jaimes [employer]GER, [employer] Primary Care Pr ovider, Attending Provider, Referring Provider Active Team Status: Inactive Member Role Status Dates Amina Jaimes [employer]GER, [employer] Primary Care Provider Active Dr. Oskar Galvan MD Attending Provider, Referrin g Provider Active Otr Flatbed Driver Relationship Specialty Start Date End Date Oskar Galvan MD PCP - General Family Medicine 08/11/11 Fabian Mansfield MD Primary Staff Physician Cardiology 12/13/18 Team Status: Active Member Role/Relationship Status Dates Amina Boldenson [employer], [employer] Primary Care Provider Active Team Status: Inactive Member Role/Relationship Status Dates Amina Boldenson [employer]GER, [employer] Primary Care Provider Active Start: January 29, 2025 End: January 29, 2025 Aminajamar Jaimes [employer], [employer] Attending Provider Active Start: January 29, 2025 End: January 29, 2025 Amina Jaimes [employer]GER, [employer]GER-[employer] Referring Provider Active Start: January 29, 2025 End: January 29, 2025 Team Status: Active Member Role/Relationship Status Dates Aminajamar BoldenJaimes [employer]GER, [employer] Primary Care Provider Active Start: May 25, 2025 Amina Theodore [employer]NAGER, [employer] Referring Provider Active Start: May 25, 2025 Dr. Oskar Madison DO Attending Provider Active Start: May 25, 2025 Team Status: Inactive Member Role/Relationship Status Dates Amina Theodore [employer]GER, [employer] Primary Care Provider Active Start: May 25, 2025 End: May 25, 2025 Dr. Yobani Garcia MD Attending Provider Active S tart: May 25, 2025 End: May 25, 2025 Team Status: Inactive Member Role/Relationship Status Dates Aminajamar BoldenJaimes [employer] MANAGER, [employer] MANAGER-C Primary Care Provider Active Start: May 25, 2025 End: May 25, 2025 Aminajamar BoldenJaimes [employer] MANAGER, [employer] MA[employer]GER-C Referring Provider Active Start: May 25, 2025 [...] or prosecute any alcohol or drug abuse patient.[facility] FOR RECORDS PERTAINING TO PATIENTS WHO ARE [...] BE BASED ON THE PRIMARY CLINICAL RECORDS. [facility], [facility]. provides no warranty or guarantee of the accuracy or completeness of information in this document.
--- NOTE | 2025-06-02 22:55 | ECHOD_ITS ---
Reason For Study Reason For Study: SYNCOPE Procedure This was a 2D Doppler, Color Flow transthoracic echocardiogram. Exam performed portable in patient room. Left Ventricle Mild concentric left ventricular hypertrophy. Normal LV size. The left ventricular ejection fraction is 50 %. Stage 1 diastolic dysfunction. Right Ventricle Normal right ventricle. Atria The left atrium is moderately enlarged. Normal right atrium. Mitral Valve Trivial mitral valve insufficiency. Tricuspid Valve Normal tricuspid valve. Aortic Valve Trisinus/trileaflet aortic valve. Pulmonic Valve Trivial pulmonic valve insufficiency. Great Vessels Mildly dilated aortic root. Pericardium/Pleural No pericardial effusion. MMode/2D Measurements & Calculations LVIDd: 4.9 cm IVSd: 1.5 cm Ao root diam: 4.4 cm LVIDs: 3.2 cm LVPWd: 1.1 cm RVDd: 3.5 cm FS: 34.6 % LAV(MOD-bp): 61.8 ml LVAd ap4: 34.5 cm2 SV(MOD-sp4): 48.2 ml LAV(MOD-bp) Indexed: 25.8 ml/m2 LVLd ap4: 9.1 cm SI(MOD-sp4): 20.1 ml/m2 LAV(MOD-sp2): 46.8 ml EDV(MOD-sp4): 115.3 ml LAV(MOD-sp4): 62.6 ml EDV(sp4-el): 111.8 ml LVAs ap4: 24.0 cm2 LVLs ap4: 7.7 cm ESV(MOD-sp4): 67.2 ml ESV(sp4-el): 63.9 ml EF(MOD-sp4): 41.7 % EF(sp4-el): 42.9 % SV(sp4-el): 47.9 ml LA A4 area: 20.6 cm2 LA dimension(2D): 4.5 cm RA A4 area: 14.4 cm2 Time Measurements MV dec time: 0.28 sec Doppler Measurements & Calculations MV E max cristian: 57.5 cm/sec Lat Peak E' Cristian: 6.1 cm/sec Med Peak E' Cristian: 5.0 cm/sec MV A max cristian: 67.5 cm/sec E/E' lat: 9.5 E/E' med: 11.6 MV E/A: 0.85 MV V2 max: 70.8 cm/sec Ao V2 max: 96.5 cm/sec MV max P.0 mmHg MV dec slope: 203.6 cm/sec2 Ao max P.7 mmHg MV V2 mean: 46.4 cm/sec Ao V2 mean: 66.7 cm/sec MV mean P.93 mmHg Ao mean P.1 mmHg MV V2 VTI: 27.0 cm Ao V2 VTI: 23.5 cm AV (velocity ratio): 0.90 LV V1 max: 88.8 cm/sec PA V2 max: 98.3 cm/sec LV V1 max P.2 mmHg PA V2 mean: 71.6 cm/sec LV V1 mean P.7 mmHg LV V1 mean: 61.7 cm/sec LV V1 VTI: 21.2 cm ECHO/Echo Complete Interpretation Summary Mild concentric left ventricular hypertrophy. The left ventricular ejection fraction is 50 %. Stage 1 diastolic dysfunction. The left atrium is moderately enlarged. Mildly dilated aortic root. Ordering Physician: Edith Watts Referring Physician: AMINA RAM Performed By: Sofia Harvey RCS
--- OUTSIDE RECORDS SUMMARY | 2025-06-02 22:58 | XMS RPT_ITS | CCD ---
Author Organization [facility] CliniSyny Care Team Providers Care Equipment Operator/Laborer/Supervisor Name Role Phone MARYAM MEDINA Unavailable Unavailable MARYAM MEDINA Unavailable Unavailable LAFFIN, LUKE Unavailable Unavailable LAFFIN LUKE Unavailable Unavailable BASHOUR, JIM N Unavailable Unavailable GODWINR, JIM N Unavailable Unavailable Aziza PORRAS, Bernarda Primary Care Provider [phone] Bernarda Moses Referring Unavailable Bernarda Moses Attending Unavailable Bernarda Moses Primary Care Unavailable WILBERTO BLAKE MD Attending Unavailable OSKAR GALVAN Primary Care Unavailable OSKAR GALVAN Primary Care Unavailable PERCY PORRAS, PRIYANKA Attending Unavailable KELLIE RODRIGUEZ DO Admitting Unavailable KRISTAN PORRAS, DAVE Consulting Unavailable STEPHANI PORRAS, ISAURO Consulting Unavailable Unavailable Primary Care Provider UnavailOskar Roth MD Primary Care Provider Carly PORRAS, Fabian Unavailable AMINA JAIMES Referring Unavailable OSKAR GALVAN Primary Care Unavailable Theodore ANCILLARY SPECIALIST-C, Amina Primary Care Provider Jaimes ANCILLARY SPECIALIST-C, Amina Attending Provider Jaimes ANCILLARY SPECIALIST-C, Amina Referring Provider Dr. Oskar Madison DO Attending Provider Jose PORRAS, Dr. Hilton Attending Provider [phone] Theodore ANCILLARY SPECIALIST, Amina Primary Care Unavailable Oskar Madison Attending Unavailable Jaimes ANCILLARY SPECIALIST, Amina Referring Unavailable Jaimes ANCILLARY SPECIALIST, Amina Primary Care Unavailable Yobani Garcia Attending Unavailable Jaimes ANCILLARY SPECIALIST, Amina Primary Care Unavailable Jaimes ANCILLARY SPECIALIST, Amina Referring Unavailable Jaimes ANCILLARY SPECIALIST, Amina Attending Unavailable Jaimes ANCILLARY SPECIALIST-C, Amina Primary Care Provider Jaimes ANCILLARY SPECIALIST-C, Amina Referring Provider Dr. Chandan Ford DO Emergency Provider [phone] Mac PORRAS, Dr. Edith Herrera Attending Provider Mac PORRAS, Dr. Edith Herrera Admit Provider Medications Current Medications Medication Drug Class(es) Dates Sig (Normalized) Sig (Original) Acetaminophen (1 source) ACETAMINOPHEN (TYLENOL ORAL) Take by mouth as needed. Active colchicine 0.6 mg oral tablet (7 sources) Start: 06-02-2025 take 1 tablet by mouth once daily Colchicine 0.6 mg tablet Active 0.6 mg PO DAILY June 02, 2025 12:00am Start: 10-08-2022 End: 03-08-2023 take 1 tablet by mouth twice daily Colchicine 0.6 mg tablet Discontinued 0.6 mg PO TWICE A DAY October 08, 2022 1:00am March 08, 2023 2:07pm gout gabapentin 300 mg oral capsule (2 sources) Anti-epileptic Agent Start: 07-22-2022 End: 01-18-2023 take 1 capsule by mouth at bedtime gabapentin (NEURONTIN) 300 MG capsule Take 1 Capsule by mouth at bedtime for 180 days. 90 Capsule 1 07/22/2022 Active levothyroxine sodium 0.15 mg oral tablet (20 sources) l-Thyroxine Start: 06-02-2025 Levothyroxine 150 mcg tablet Active 137 ug PO DAILY June 02, 2025 12:00am Start: 04-21-2024 End: 06-02-2025 take 1 tablet by mouth once daily Levothyroxine 150 mcg tablet Discontinued 150 ug PO DAILY 90 3 April 21, 2024 12:00am June 02, 2025 10:45pm Start: 03-27-2024 End: 04-21-2024 take 1 tablet [...] mouth daily. 90 Tablet 3 09/10/2021 Active tadalafil 20 mg oral tablet (11 sources) Phosphodiesterase 5 Inhibitor Start: 06-02-2025 take 1 tablet by mouth once daily Tadalafil 20 mg tablet Active 20 mg PO DAILY June 02, 2025 12:00am Start: 09-08-2021 End: 05-25-2025 take 1 tablet by mouth once as needed Tadalafil 20 mg tablet Discontinued 20 mg PO ONCE as needed for sexual activity March 08, 2023 12:00am May 25, 2025 9:33am Completed/Discontinued Medications Medication Drug Class(es) Dates Sig [...] mg / clavulanate 125 mg oral tablet (11 sources) Penicillin-class Antibacterial Start: 11-23-2023 End: 01-07-2024 [...] aspirin 81 mg delayed release oral tablet (3 sources) Platelet Aggregation Inhibitor, Nonsteroidal Anti-inflammatory Drug Start: 06-20-2024 End: 05-25-2025 take 1 tablet by mouth once daily Aspirin 81 mg tablet,delayed release (DR/EC) Discontinued 81 mg PO daily June 20, 2024 12:00am May 25, 2025 9:33am atorvastatin 20 mg oral tablet (8 sources) HMG-CoA Reductase Inhibitor Start: 11-22-2020 End: 09-04-2021 take 1 tablet by mouth once daily Atorvastatin 20 mg tablet Discontinued 20 mg PO DAILY 30 November 22, 2020 1:00am September 04, 2021 5:11pm On Hold: OR per pt d/t cost azithromycin 250 mg oral tablet (3 sources) Macrolide Antimicrobial Start: 06-20-2024 End: 06-25-2024 take 2 tablets by mouth once daily, then take 1 tablet by mouth once daily at mealtime Azithromycin 250 mg tablet Discontinued 250 mg PO daily 6 5 0 June 20, 2024 12:00am June 24, 2024 12:00am June 25, 2024 12:08am 2 po qd for 1 day then 1 po qd for 4 days with food or after eating cefuroxime 500 mg oral tablet (5 sources) Cephalosporin Antibacterial Start: 12-24-2022 End: 03-08-2023 take 1 tablet by mouth twice daily Cefuroxime Axetil 500 mg tablet Discontinued 500 mg PO TWICE A DAY December 24, 2022 12:00am March 08, 2023 2:07pm dexlansoprazole 30 mg delayed release oral capsule (7 sources) Proton Pump Inhibitor Start: 09-05-2018 End: 09-07-2018 take 1 capsule by mouth once daily Dexlansoprazole (Dexilant) 30 mg capsule,biphase delayed releas Discontinued 30 mg PO DAILY 30 September 05, 2018 1:00am September 07, 2018 2:08pm doxycycline hyclate 100 mg oral capsule (4 sources) Tetracycline-class Drug Start: 01-07-2024 End: 03-27-2024 take 1 capsule by mouth twice daily Doxycycline Hyclate 100 mg capsule Discontinued 100 mg PO TWICE A DAY January 07, 2024 12:00am March 27, 2024 9:40am glucosamine 500 mg oral tablet (7 sources) Start: 11-21-2020 End: 04-23-2021 take 1 tablet by mouth once daily Glucosamine Hcl 500 mg tablet Discontinued 500 mg PO DAILY November 21, 2020 1:00am April 23, 2021 10:11am administer with a meal 24 hr metoprolol succinate 50 mg extended release oral tablet (13 sources) beta-Adrenergic Tommie Start: 12-24-2022 End: 03-08-2023 take 1 tablet by mouth once daily Metoprolol Succinate 50 mg tablet extended release 24 hr Discontinued 50 mg PO DAILY December 24, 2022 12:00am March 08, 2023 [...] On Hold: DC per pt d/t cost multivitamin,jk-cgop-likzmjr s (4 sources) Start: 11-21-2020 End: 04-23-2021 take 1 tablet by mouth once daily multivitamin,rm-vrlx-sofhgtot Discontinued 1 TABLET PO DAILY November 21, 2020 2:09pm April 23, 2021 10:50am Start: 11-21-2020 End: 04-23-2021 take 1 tablet by mouth once daily multivitamin,pa-ywzd-uppxtobw Discontinu ed 1 TABLET PO DAILY November 21, 2020 1:00am April 23, 2021 10:50am Start: 11-21-2020 End: 04-23-2021 take 1 tablet by mouth once daily multivitamin,fo-hvhj-oimsypil Discontinu ed 1 TABLET PO DAILY November 21, 2020 12:00am April 23, 2021 9:50am Multivitamin,Kr-Drdy-Zypvpbr s (Complete Multivitamin) tablet (3 sources) Start: 11-21-2020 End: 04-23-2021 Multivitamin,Kc-Lqkv-Cvmwucd s (Complete Multivitamin) tablet Discontinued 1 {tbl} PO DAILY November 21, 2020 1:00am April 23, 2021 10:50am pantoprazole 40 mg delayed release oral tablet (20 sources) Proton Pump Inhibit or Start: 09-07-2018 End: 10-08-2022 take 1 tablet by mouth once daily Pantoprazole 40 mg tablet,delayed release (DR/EC) Discontinued 40 mg PO DAILY 30 September 23, 2018 3:39pm May 06, 2020 10:22am predniSONE 20 mg oral tablet (19 sources) Start: 01-29-2025 End: 05-25-2025 take 2 tablets by mouth once daily Prednisone 20 mg tablet Discontinued 40 mg PO DAILY January 29, 2025 12:00am May 25, 2025 9:33am Start: 05-09-2024 End: 06-20-2024 take 2 tablets by mouth once daily Prednisone 20 mg tablet Discontinued 40 mg PO DAILY 20 May 09, 2024 12:00am June 20, 2024 3:29pm Start: 10-08-2022 End: 03-08-2023 take 2 tablets by mouth once daily Prednisone 20 mg tablet Discontinued 40 mg PO DAILY October 08, 2022 1:00am March [...] 04, 2021 1:00am December 22, 2021 4:14pm tamsulosin hydrochloride 0.4 mg oral capsule (18 sources) alpha-Adrenergic Tommie Start: 03-08-2023 End: 05-25-2025 take 1 capsule by mouth once daily Tamsulosin 0.4 mg capsule Discontinued 0.4 mg PO DAILY March 08, 2023 12:00am May 25, 2025 9:33am Start: 11-21-2020 End: 09-04-2021 take 1 capsule by mouth at bedtime Tamsulosin 0.4 mg capsule Discontinued 0.4 mg PO AT BEDTIME 30 November 21, 2020 1:00am September 04, 2021 5:11pm thyroid (fdc) 90 mg oral tablet (20 sources) Start: 12-09-2018 End: 05-06-2020 take 1 tablet by mouth once daily Thyroid (Pork) ([place] Thyroid) 90 mg tablet Discontinued 90 mg PO DAILY 90 February 13, 2019 2:21pm May 06, 2020 10:22am Start: 10-20-2018 End: 05-06-2020 Thyroid (Pork) ([place] Thyro id) 60 mg tablet Discontinued 60 mg PO DAILY 30 October 20, 2018 1:00am May 06, 2020 10:22am + MARTINEOUR 15=75MG PO QD Start: 10-20-2018 End: 05-06-2020 take 1 mg by mouth once daily Thyroid ([place]) ([place] T hyroid) 15 mg tablet Discontinued 15 mg PO DAILY 30 1 October 20, 2018 1:00am May 06, 2020 10:22am +60 MG =75 MG ORALLY QD Start: 09-06-2018 End: 10-20-2018 take 1 tablet by mouth once daily Thyroid (Pork) ([place] Thyroid) 30 mg tablet Discontinued 60 mg PO DAILY 60 0 September 23, 2018 3:39pm October 20, 2018 2:33pm Problems Active Problems Problem Classification Problem Date Documented Da te Episodic/Chronic Abdominal pain (8 sources) Epigastric pain; Translations: [Epigastric pain] Onset: 8 12-22-2021 Episodic Allergic reactions (10 sources) Acute dermatitis; Translations: [Dermatitis, unspecified] Onset: 4 05-10-2024 Episodic Cardiac dysrhythmias (4 sources) Palpitations; Translations: [Palpitations] 03-08-2023 Episodic Chronic kidney disease (1 source) Chronic kidney disease stage 3A ; Translations: [Stage 3a chronic kidney disease (HCC)] Chronic Conditions associated with dizziness or vertigo (3 sources) Dizziness; Translations: [Dizziness and giddiness] 06-20-2024 Episodic Disorders of lipid metabolism (14 sources) Hypercholesterolemia; Translations: [Pure hypercholesterolemia, unspecified] Onset: 2 Chronic Esophageal disorders (7 sources) Gastroesophageal reflux disease; Translations: [Gastro-esophageal reflux disease without esophagitis] 12-22-2021 Chronic Essential hypertension (16 sources) Hypertensive disorder; Translations: [Essential (primary) hypertension] 11-21-2020 Chronic Gastrointestinal hemorrhage (7 sources) Gastrointestinal hemorrhage; Translations: [Gastrointestinal hemorrhage, unspecified] 09-03-2020 Episodic Gout and other crystal arthropathies (16 sources) Gout; Translations: [Gout, unspecified] Onset: 2 Chronic Hyperplasia of prostate (20 sources) Benign prostatic hyperplasia; Translations: [Benign prostatic hyperplasia without lower urinary tract symptoms] Onset: 2 Chronic Nausea and vomiting (7 sources) Vomiting; Translations: [Vomiting, unspecified] 07-29-2020 Episodic Nonspecific chest pain (2 sources) Other chest pain; Translations: [Chest pain on exertion] Onset: 8 Episodic Other aftercare (7 sources) Patient encounter status; Translations: [Other 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 helper (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 therapy] Onset: 2 Episodic Other and unspecified benign neoplasm (3 sources) Lipoma of skin and subcutaneous tissue of neck; Translations: [Benign lipomatous neoplasm of skin and subcutaneous tissue of head, face and neck] 03-27-2024 Episodic Other and unspecified benign neoplasm (3 sources) Lipoma (clinical); Translations: [Benign lipomatous neoplasm, unspecified] 03-27-2024 Episodic Other connective tissue disease (7 sources) Foot pain; Translations: [Pain in left foot] 09-04-2021 Episodic Other hematologic conditions (7 sources) Erythrocytosis; Translations: [Secondary polycythemia] 11-10-2020 Episodic Other inflammatory condition of skin (3 sources) Pityriasis rosea; Translations: [Pityriasis rosea] 07-18-2024 Chronic Other lower respiratory disease (10 sources) Dyspnea; Translations: [Shortness of breath] Onset: 6 Episodic Other lower respiratory disease (7 sources) Multiple nodules of lung; Translations: [Other [...] of left foot] Onset: 5 Episodic Other non-traumatic joint disorders (2 sources) Ankle pain; Translations: [Pain in left ankle and joints of left foot] 05-25-2025 Episodic Other nutritional; endocrine; and metabolic disorders (3 sources) Body mass index 30+ - obesity; Translations: [Body mass index (BMI) 30.0-30.9, adult] Chronic Other skin disorders (4 sources) Sebaceous cyst of skin; Translations: [Sebaceous cyst] 11-23-2023 Episodic Other upper respiratory infections (5 sources) Acute maxillary sinusitis; Translations: [Acute maxillary sinusitis, unspecified] 12-24-2022 Episodic Otitis media and related conditions (3 sources) Otitis media of left ear; Translations: [Otitis media, unspecified, left ear] 06-20-2024 Episodic Residual codes; unclassified (7 sources) Exposure to carbon monoxide; Translations: [Contact with and (suspected) exposure to other hazardous substances] 11-10-2020 Episodic Spondylosis; intervertebral disc disorders; other back problems (10 sources) Neck pain; Translations: [Cervicalgia] 11-23-2023 Episodic Sprains and strains (3 sources) Strain of neck muscle; Translations: [Strain of muscle, fascia and tendon at neck level, initial encounter] 01-31-2025 Episodic Syncope (6 sources) Syncope; Translations: [Syncope and collapse] 05-20-2024 Episodic Thyroid disorders (15 sources) Acquired hypothyroidism; Translations: [Hypothyroidism, unspecified] Onset: 11-10-2020 Chronic Unclassified (1 source) Low back pain, unspecified; Translations: [Low back pain, unspecified] Onset: 5 Past or Other Problems Problem Classification Problem Date Documented Da te Episodic/Chronic Other aftercare (1 source) Long-term (current) use [...] Test Name Value Interpretation Reference Range Facility Absolute lymphocyte countOrd ered By: Chandan Ford on 06-02-2025 Lymphocytes Auto (Unsp spec) [#/Vol] 1.36 10*3/uL 0.83-4.[address] [facility] Absolute neutrophil countOrd ered By: Chandan Ford on 06-02-2025 Neutrophils (Bld) [#/Vol] 3.9 10*3/uL 2.0-7.[address] [facility] Anion gap in Serum or Plasma Ordered By: Chandan Ford on 06-02-2025 Anion gap [Moles/Vol] 13 mmol/L 5-15 [facility] Automated lymphocyte count a s percentage of total leukocytesOrdered By: Chandan Ford on 06-02-2025 Lymphocytes/100 WBC Auto (Unsp spec) 20.7 % 19-[address] [facility] BUN/creatinine ratioOrdered By: Chandan Ford on 06-02-2025 Urea nitrogen/Creatinine [Mass ratio] 12.3 mg/mg 10-[address] [facility] Basophil percentageOrdered B y: Chandan Ford on 06-02-2025 Basophils/100 WBC (Bld) 1.4 % High 0-1 [facility] Carbon dioxide, total [Moles /volume] in Central venous bloodOrdered By: Chandan Ford on 06-02-2025 CO2 [Moles/Vol] 23.8 mmol/L 21.0-32.[address] [facility] Chloride assayOrdered By: Dhara Ford on 06-02-2025 Chloride [Moles/Vol] 103 mmol/L 98-108 [facility] Eosinophil percentageOrdered By: Chandan Ford on 06-02-2025 Eosinophils/100 WBC (Bld) 5.9 % High 0-[address] [facility] Erythrocyte distribution wid th ratioOrdered By: Chandan Ford on 06-02-2025 Erythrocyte distribution width (RBC) [Ratio] 13.7 % 11.6-14.[address] [facility] Erythrocyte distribution wid th standard deviationOrdered By: Chandan Ford on 06-02-2025 Erythrocyte distribution width (RBC) [Ratio] 44.0 fl High 35.1-43.[address] [facility] Glomerular filtration rate ( GFR) estimation/1.73 sq m using serum, plasma, or whole bOrdered By: Chandan Ford on 06-02-2025 GFR/1.73 sq M.predicted among non-blacks MDRD (S/P/Bld) [Vol rate/Area] 58 mL/min/{1.73_m2} Low >[address] [facility] Comment on above: mL/min/1.73m2 CKD-EP I Creatinine Equation (2020) Hematocrit Auto (Bld) [Volum e fraction]Ordered By: Chandan Ford on 06-02-2025 Hematocrit (Bld) [Volume fraction] 46.6 % 40-[address] [facility] Hemoglobin measurementOrdere d By: Chandan Ford on 06-02-2025 Hemoglobin (Bld) [Mass/Vol] 16.2 g/dL 13.0-16.[address] [facility] Immature granulocytes/100 WB C Auto (Bld)Ordered By: Chandan Ford on 06-02-2025 Immature granulocytes/100 WBC (Bld) 0.300 % 0.0-0.[address] [facility] Comment on above: IG% - Immature Granu locytes (promyelocytes, myelocytes and metamyelocytes) > 1% indicates that a LEFT SHIFT is Present. MCV (mean corpuscular volume ) determinationOrdered By: Chandan Ford on 06-02-2025 MCV (RBC) [Entitic vol] 87.8 fL 80-94 [facility] Magnesium measurement (mass/ volume)Ordered By: Edith Watts on 06-02-2025 Magnesium (Unsp spec) [Mass/Vol] 2.1 mg/dL 1.5-2.[address] [facility] Mean corpuscular hemoglobin (MCH) determinationOrdered By: Chandan Ford on 06-02-2025 MCH (RBC) [Entitic mass] 30.5 pg 27.0-32.[address] [facility] Mean corpuscular hemoglobin concentration (MCHC) determinationOrdered By: Chandan Ford on 06-02-2025 MCHC (RBC) [Mass/Vol] 34.8 g/dL 32-36 [facility] Mean platelet volume determi nationOrdered By: Chandan Ford on 06-02-2025 Platelet mean volume (Bld) [Entitic vol] 11.1 fL 6.2-12.[address] [facility] Monocyte percentageOrdered B y: Chandan Ford on 06-02-2025 Monocytes/100 WBC (Bld) 12.8 % High 0-10 [facility] Neutrophil percentageOrdered By: Chandan Ford on 06-02-2025 Neutrophils/100 WBC (Bld) 58.9 % 47-[address] [facility] Nucleated red blood cell per centageOrdered By: Chandan Olsonnahid on 06-02-2025 Nucleated RBC/100 WBC (Bld) [Ratio] 0 % 0-[address] [facility] Platelet countOrdered By: Dhara Ford on 06-02-2025 Platelets (Bld) [#/Vol] 185 10*3/uL 150-[address] [facility] Potassium measurement (mass/ volume)Ordered By: Chandan Ford on 06-02-2025 Potassium (Unsp spec) [Mass/Vol] 3.8 mmol/L 3.3-5.[address] [facility] RBC Auto (Bld) [#/Vol]Ordere d By: Chandan Ford on 06-02-2025 RBC (Bld) [#/Vol] 5.31 10*6/uL 4.6-6.2 [facility] Serum creatinine measurement (mass/volume)Ordered By: Chandan Ford on 06-02-2025 Creatinine [Mass/Vol] 1.34 mg/dL High 0.70-1.20 [facility] Serum glucose measurement (m ass/volume)Ordered By: Chandan Ford on 06-02-2025 Glucose [Mass/Vol] 134 mg/dL High 70-99 [facility] Serum or plasma calcium reta urement (mass/volume)Ordered By: Chandan Ford on 06-02-2025 Calcium [Mass/Vol] 8.8 mg/dL 7.6-11.0 [facility] Serum or plasma urea nitroge n measurement (mass/volume)Ordered By: Chandan Ford on 06-02-2025 Urea nitrogen [Mass/Vol] 17 mg/dL 4-[address] [facility] Sodium levelOrdered By: Rowdy Ford on 06-02-2025 Sodium [Moles/Vol] 139 mmol/L 133-145 [facility] Troponin T.cardiac [Mass/vol ume] in Serum or Plasma by High sensitivity methodOrdered By: Chandan Ford on 06-02-2025 Troponin T.cardiac High sensitivity method [Mass/Vol] 13 ng/L <[address] [facility] Troponin T.cardiac High sensitivity method [Mass/Vol] 16 ng/L <[address] [facility] White blood cell (WBC) count Ordered By: Chandan Ford on 06-02-2025 WBC (Bld) [#/Vol] 6.6 10*3/uL 4.4-11.0 [facility] Ankle min 3 Viewson 05-25-20 Ankle min 3 Views [facility] [address] [place] [address] Ankle min 3 Views MR#: [id number] Acct: [id number] Name: ARTURO SNOW Rep #: [id number] : 1955 M 69 From: Ralph Torres MD PCP: MARISELA Burton Status: DEP AMB Study: Ankle min 3 Views Date of Exam: 05/25/25 Exam# [id number] Ordering Dr: Oskar Madison DO EXAM: XR Left Ankle Complete, 3 or More Views CLINICAL INDICATION: PAIN TECHNIQUE: Frontal, lateral and oblique views of the left ankle. COMPARISON: No relevant prior studies available. FINDINGS: BONES/JOINTS: Unremarkable. No dislocation. No acute fracture. SOFT TISSUES: Soft tissue swelling. RAD/Ankle min 3 Views IMPRESSION: 1. No acute fracture. 2. Soft tissue swelling. Reading [facility] CC: ANCILLARY SPECIALIST-C Amina Jaimes; Dr. Oskar Madison DO Stencil Inspector: Signed Normal [facility] Orthopedic Visit Reporton Orthopedic Visit Report [facility] [address] [place] [address] [address] [place] [address] OFFICE VISIT Date of Service: 05/25/25 MR#: [id number] Acct: [id number] Name: ARTURO SNOW Rep #: [id number] : [id number] Provider: Dr. 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 Oskar Madison, DO 05/25/25926. Part of today???s visit was documented by [...] that I (more content not included)... Normal [facility] CBC (INCLUDES DIFF/PLT)on Basophils (Bld) [#/Vol] 0.059 10*3/uL Normal 0-200 [facility] Comment on above: Performed By: #### 7 600, 6399, 5363, [id number] #### [facility] of [address], [address] [place] [address] [employer] Consultant: Wero Conn MD Basophils/100 WBC (Bld) 0.7 % Normal [facility] Comment on above: Performed By: #### 7 600, 6399, 5363, 83249 #### [facility] of [place] [address] [employer] Consultant: Wero Conn MD Eosinophils (Bld) [#/Vol] 0.302 10*3/uL Normal 15-500 [facility] Comment on above: Performed By: #### 7 600, 6399, 5363, 21207 #### [facility] of [address], [address] [place] [address] [employer] Consultant: Wero Conn MD Eosinophils/100 WBC (Bld) 3.6 % Normal [facility] Comment on above: Performed By: #### 7 600, 6399, 5363, 21776 #### [facility] of [place] [address] [employer] Consultant: Wero Conn MD Erythrocyte distribution width (RBC) [Ratio] 13.7 % Normal 11.0-15.0 [facility] Comment on above: Performed By: #### 7 600, 6399, 5363, 80575 #### [facility] of [place] [address] [employer] Consultant: Wero Conn MD Hematocrit (Bld) [Volume fraction] 51.1 % High 38.5-50.0 [facility] Comment on above: Performed By: #### 7 600, 6399, 5363, 40783 #### [facility] of [address] [place] [address] [employer] Consultant: Wero Conn MD Hemoglobin (Bld) [Mass/Vol] 16.9 g/dL Normal 13.2-17.1 [facility] Comment on above: Performed By: #### 7 600, 6399, 5363, 53666 #### [facility] of [address], [address] [place] [address] [employer] Consultant: Wero Conn MD Lymphocytes (Bld) [#/Vol] 1.21 10*3/uL Normal 850-3900 [facility] Comment on above: Performed By: #### 7 600, 6399, 5363, 72896 #### [facility] of [address], [address] [place] [address] [employer] Consultant: Wero Conn MD Lymphocytes/100 WBC (Bld) 14.4 % Normal [facility] Comment on above: Performed By: #### 7 600, 6399, 5363, [id number] #### [facility] of [address], [address] [place] [address] [employer] Consultant: Wero Conn MD MCH (RBC) [Entitic mass] 30.7 pg Normal 27.0-33.0 [facility] Comment on above: Performed By: #### 7 600, 6399, 5363, 04439 #### [facility] of [place] [address] [employer] Consultant: Wero Conn MD MCHC (RBC) [Mass/Vol] 33.1 g/dL Normal 32.0-36.0 [facility] Comment on above: Result Comment: For adults, a slight decrease in the calculated MCHC value (in the range of 30 to 32 g/dL) is most likely not clinically significant; however, it should be interpreted with caution in correlation with other red cell parameters and the patient's clinical condition. Performed By: #### 7 600, 6399, 5363, 49759 #### [facility] [place] [address] [employer] Consultant: Wero Conn MD MCV (RBC) [Entitic vol] 92.7 fL Normal 80.0-100.0 [facility] Comment on above: Performed By: #### 7 600, 6399, 5363, 29046 #### [facility] [place] [address] [employer] Consultant: Wero Conn MD Monocytes (Bld) [#/Vol] 0.773 10*3/uL Normal 200-950 [facility] Comment on above: Performed By: #### 7 600, 6399, 5363, 23428 #### [facility] [address], [address] [place] [address] [employer] Consultant: Wero Conn MD Monocytes/100 WBC (Bld) 9.2 % Normal [facility] Comment on above: Performed By: #### 7 600, 63, 5363, 35880 #### [facility] [place] [address] [employer] Consultant: Wero Conn MD Neutrophils (Bld) [#/Vol] 6.056 10*3/uL Normal 6017-2844 [facility] Comment on above: Performed By: #### 7 600, 6399, 5363, 74327 #### [facility] [place] [address] [employer] Consultant: Wero Conn MD Neutrophils/100 WBC (Bld) 72.1 % Normal [facility] Comment on above: Performed By: #### 7 600, 63, 5363, 69675 #### [facility] [place] [address] [employer] Consultant: Wero Conn MD Platelet mean volume (Bld) [Entitic vol] 10.9 fL Normal 7.5-12.5 [facility] Comment on above: Performed By: #### 7 600, 6399, 5363, 90819 #### [facility] [address], [address] [place] [address] [employer] Consultant: Wero Conn MD Platelets (Bld) [#/Vol] 203 10*3/uL Normal 140-400 [facility] Comment on above: Performed By: #### 7 600, 6399, 5363, 58493 #### [facility] [address], [address] [place] [address] [employer] Consultant: Wero Conn MD RBC (Bld) [#/Vol] 5.51 10*6/uL Normal 4.20-5.80 [facility] Comment on above: Performed By: #### 7 600, 6399, 5363, 86980 #### [facility] [address], [address] [place] [address] [employer] Consultant: Wero Conn MD WBC (Bld) [#/Vol] 8.4 10*3/uL Normal 3.8-10.8 [facility] Comment on above: Performed By: #### 7 600, 6399, 5363, 61531 #### [facility] [address], [address] [place] [address] [employer] Consultant: Wero Conn MD [facility] 05-05-2025 Albumin [Mass/Vol] 4.4 g/dL Normal 3.6-5.1 [facility] Comment on above: Performed By: #### 7 600, 6399, 5363, 92932 #### [facility] [place] [address] [employer] Consultant: Wero Conn MD Albumin/Globulin [Mass ratio] 2.1 {ratio} Normal 1.0-2.5 [facility] Comment on above: Performed By: #### 7 600, 6399, 5363, 75802 #### [facility] [address], [address] [place] [address] [employer] Consultant: Wero Conn MD ALP [Catalytic activity/Vol] 70 U/L Normal 35-144 [facility] Comment on above: Performed By: #### 7 600, 6399, 5363, 31930 #### [facility] [place] [address] [employer] Consultant: Wero Conn MD ALT [Catalytic activity/Vol] 15 U/L Normal 9-46 [facility] Comment on above: Performed By: #### 7 600, 6399, 5363, 57412 #### [facility] [place] [address] [employer] Consultant: Wero Conn MD AST [Catalytic activity/Vol] 17 U/L Normal 10-35 [facility] Comment on above: Performed By: #### 7 600, 6399, 5363, 25939 #### [facility] [place] [address] [employer] Consultant: Wero Conn MD Bilirubin [Mass/Vol] 2.0 mg/dL High 0.2-1.2 [facility] Comment on above: Performed By: #### 7 600, 6399, 5363, 47497 #### [facility] [place] [address] [employer] Consultant: Wero Conn MD Calcium [Mass/Vol] 8.9 mg/dL Normal 8.6-10.3 [facility] Comment on above: Performed By: #### 7 600, 6399, 5363, 91527 #### [facility] [place] [address] [employer] Consultant: Wero Conn MD Chloride [Moles/Vol] 104 mmol/L Normal 98-110 [facility] Comment on above: Performed By: #### 7 600, 6399, 5363, 16485 #### [facility] [place] [address] [employer] Consultant: Wero Conn MD CO2 [Moles/Vol] 27 mmol/L Normal 20-32 [facility] Comment on above: Performed By: #### 7 600, 6399, 5363, 79015 #### [facility] [place] [address] [employer] Consultant: Wero Conn MD Creatinine [Mass/Vol] 1.36 mg/dL High 0.70-1.[address] [facility] Comment on above: Performed By: #### 7 600, 6399, 5363, 04072 #### [facility] [place] [address] [employer] Consultant: Wero Conn MD GFR/1.73 sq M.predicted among non-blacks MDRD (S/P/Bld) [Vol rate/Area] 57 mL/min/{1.73_m2} Low > OR = 60 [facility] Comment on above: Performed By: #### 7 600, 6399, 5363, 79972 #### [facility] [address], [address] [place] [address] [employer] Consultant: Wero Conn MD Globulin (S) [Mass/Vol] 2.1 g/dL Normal 1.9-3.7 [facility] Comment on above: Performed By: #### 7 600, 6399, 5363, 15496 #### [facility] [address], [address] [place] [address] [employer] Consultant: Wero Conn MD Glucose [Mass/Vol] 90 mg/dL Normal 65-99 [facility] Comment on above: Result Comment: Fasting reference interval Performed By: #### 7 600, 6399, 5363, 10274 #### [facility] [place] [address] [employer] Consultant: Wero Conn MD Potassium [Moles/Vol] 4.2 mmol/L Normal 3.5-5.[address] [facility] Comment on above: Performed By: #### 7 600, 6399, 5363, 83154 #### [facility] [address], [address] [place] [address] [employer] Consultant: Wero Conn MD Protein [Mass/Vol] 6.5 g/dL Normal 6.1-8.1 [facility] Comment on above: Performed By: #### 7 600, 6399, 5363, 94458 #### [facility] [place] [address] [employer] Consultant: Wero Conn MD Sodium [Moles/Vol] 140 mmol/L Normal 135-146 [facility] Comment on above: Performed By: #### 7 600, 6399, 5363, 43232 #### [facility] [address], [address] [place] [address] [employer] Consultant: Wero Conn MD Urea nitrogen [Mass/Vol] 15 mg/dL Normal 7-25 [facility] Comment on above: Performed By: #### 7 600, 6399, 5363, 67274 #### [facility] [address], [address] [place] [address] [employer] Consultant: Wero Conn MD Urea nitrogen/Creatinine [Mass ratio] 11 mg/mg Normal 6-22 [facility] Comment on above: Performed By: #### 7 600, 6399, 5363, 27421 #### [facility] [address], [address] [place] [address] [employer] Consultant: Wero Conn MD LIPID PANEL, [facility] [place] 08-0 Cholesterol [Mass/Vol] 207 mg/dL High <200 [facility] Comment on above: Order Comment: FASTI NG:YES FASTING: YES Performed By: #### 7 600, 6399, 5363, 62087 #### [facility] [address], [address] [place] [address] [employer] Consultant: Wero Conn MD Cholesterol in HDL [Mass/Vol] 36 mg/dL Low > OR = 40 [facility] Comment on above: Order Comment: FASTI NG:YES FASTING: YES Performed By: #### 7 600, 6399, 5363, 83335 #### [facility] [address], [address] [place] [address] [employer] Consultant: Wero Conn MD Cholesterol in LDL [Mass/Vol] 146 mg/dL High [facility] Comment on above: Order Comment: FASTI NG:YES FASTING: YES Result Comment: Refe rence range: <100 Desirable range <100 mg/dL for primary prevention; <70 mg/dL for patients with CHD or diabetic patients with > or = 2 CHD risk factors. LDL-C is now calculated using the Jame-Dumont calculation, which is a validated novel method providing better accuracy than the Friedewald equation in the estimation of LDL-C. Jame SS et al. SHARONA. 2013;310(51): 4409-7023 (http://education.Biodesix/faq/WJO057) Performed By: #### 7 600, 6399, 5363, 31187 #### [facility] [address], [address] [place] [address] [employer] Consultant: Wero Conn MD Cholesterol.total/Polina sterol in HDL [Mass ratio] 5.8 {ratio} High <5.0 [facility] Comment on above: Order Comment: FASTI NG:YES FASTING: YES Performed By: #### 7 600, 6399, 5363, 01439 #### [facility] [address], [address] [place] [address] [employer] Consultant: Wero Conn MD NON HDL CHOLESTEROL 171 mg/dL (calc) High <130 [facility] Comment on above: Order Comment: FASTI NG:YES FASTING: YES Result Comment: For patients with diabetes plus 1 major ASCVD risk factor, treating to a non-HDL-C goal of <100 mg/dL (LDL-C of <70 mg/dL) is considered a therapeutic option. Performed By: #### 7 600, 6399, 5363, 80565 #### [facility] [address], [address] [place] [address] [employer]ant: Wero Conn MD Triglyceride [Mass/Vol] 124 mg/dL Normal <150 [facility] Comment on above: Order Comment: FASTI NG:YES FASTING: YES Performed By: #### 7 600, 6399, 5363, 66545 #### [facility] [place] [address] [employer] Consultant: Wero Conn MD PSA, TOTALon 05-05-2025 PSA, TOTAL 1.25 ng/mL Normal < OR = 4.00 [facility] Comment on above: Result Comment: The total PSA value from this assay system is standardized against the WHO standard. The test result will be approximately 20% lower when compared to the equimolar-standardized total PSA (Bruce [place]). Comparison of serial PSA results should be interpreted with this fact in mind. This test was performed using the Siemens chemiluminescent method. Values obtained from different assay methods cannot be used interchangeably. PSA levels, regardless of value, should not be interpreted as absolute evidence of the presence or absence of disease. Performed By: #### 7 600, 6399, 5363, 79282 #### [facility] [address], [address] [place] [address] [employer] Consultant: Wero Conn MD TSHon 05-05-2025 TSH Qn 3.59 m[IU]/L Normal 0.40-4.50 [facility] Comment on above: Performed By: #### 7 600, 6399, 5363, 53263 #### [facility] [address], [address] [place] [address] [employer] Consultant: Wero Conn MD XR CERVICAL 4V AP/LAT/OBLon [...] are normal. IMPRESSION: Degenerative changes as described. Stencil Inspector: JULISSA Transcribe Date/Time: Feb 08 2025 9:52P Dictated by : SUSAN PITTMAN MD This examination was interpreted and the report reviewed and electronically signed by: SUSAN PITTMAN MD on Feb 08 2025 9:52PM EST [id number] Normal [facility] XR LUMBAR PARS 4V AP/LAT/OBL [...] are intact. IMPRESSION: Degenerative changes as described. Stencil Inspector: JULISSA Transcribe Date/Time: Feb 08 2025 9:52P Dictated by : SUSAN PITTMAN MD This examination was interpreted and the report reviewed and electronically signed by: SUSAN PITTMAN MD on Feb 08 2025 9:53PM EST [id number] Normal [facility] CBC (INCLUDES DIFF/PLT)on Basophils (Bld) [#/Vol] 0.08 10*3/uL Normal 0-200 [facility] Comment on above: Performed By: #### 5 585, 4863, 8450, 06667 #### [facility] [address] [employer] Consultant: Wero Conn MD Basophils/100 WBC (Bld) 1.1 % Normal [facility] Comment on above: Performed By: #### 5 108, 8979, 7960, 26936 #### [facility] [address] [employer] Consultant: Wero Conn MD Eosinophils (Bld) [#/Vol] 0.299 10*3/uL Normal 15-500 [facility] Comment on above: Performed By: #### 5 363, 6399, 7600, 46081 #### [facility] [address], [address] [place] [address] [employer] Consultant: Wero Conn MD Eosinophils/100 WBC (Bld) 4.1 % Normal [facility] Comment on above: Performed By: #### 5 363, 6399, 7600, 29050 #### [facility] [address], [address] [place] [address] [employer] Consultant: Wero Conn MD Erythrocyte distribution width (RBC) [Ratio] 13.1 % Normal 11.0-15.0 [facility] Comment on above: Performed By: #### 5 363, 6399, 7600, 36148 #### [facility] [address], [address] [place] [address] [employer] Consultant: Wero Conn MD Hematocrit (Bld) [Volume fraction] 53.4 % High 38.5-50.0 [facility] Comment on above: Performed By: #### 5 363, 6399, 7600, 15191 #### [facility] [place] [address] [employer] Consultant: Wero Conn MD Hemoglobin (Bld) [Mass/Vol] 17.8 g/dL High 13.2-17.1 [facility] Comment on above: Performed By: #### 5 363, 6399, 7600, 58583 #### [facility] [address], [address] [place] [address] [employer] Consultant: Wero Conn MD Lymphocytes (Bld) [#/Vol] 1.161 10*3/uL Normal 850-3900 [facility] Comment on above: Performed By: #### 5 363, 6399, 7600, 16674 #### [facility] [address], [address] [place] [address] [employer] Consultant: Wero Conn MD Lymphocytes/100 WBC (Bld) 15.9 % Normal [facility] Comment on above: Performed By: #### 5 363, 6399, 7600, 50633 #### [facility] [address], [address] [place] [address] [employer] Consultant: Wero Conn MD MCH (RBC) [Entitic mass] 30.7 pg Normal 27.0-33.0 [facility] Comment on above: Performed By: #### 5 363, 6399, 7600, 33855 #### [facility] [address], [address] [place] [address] [employer] Consultant: Wero Conn MD MCHC (RBC) [Mass/Vol] 33.3 [...] clinical condition. Performed By: #### 5 363, 63, 7600, 54879 #### [facility] [place] [address] [employer] Consultant: Wero Conn MD MCV (RBC) [Entitic vol] 92.2 fL Normal 80.0-100.0 [facility] Comment on above: Performed By: #### 5 363, 6399, 7600, 35724 #### [facility] [place] [address] [employer] Consultant: Wero Conn MD Monocytes (Bld) [#/Vol] 0.628 10*3/uL Normal 200-950 [facility] Comment on above: Performed By: #### 5 363, 6399, 7600, 45585 #### [facility] [place] [address] [employer] Consultant: Wero Conn MD Monocytes/100 WBC (Bld) 8.6 % Normal [facility] Comment on above: Performed By: #### 5 363, 6399, 7600, 39792 #### [facility] [place] [address] [employer] Consultant: Wero Conn MD Neutrophils (Bld) [#/Vol] 5.132 10*3/uL Normal 0609-9630 [facility] Comment on above: Performed By: #### 5 363, 6399, 7600, 87655 #### [facility] [address], [address] [place] [address] [employer] Consultant: Wero Conn MD Neutrophils/100 WBC (Bld) 70.3 % Normal [facility] Comment on above: Performed By: #### 5 363, 6399, 7600, 80197 #### [facility] [address], [address] [place] [address] [employer] Consultant: Wero Conn MD Platelet mean volume (Bld) [Entitic vol] 11.4 fL Normal 7.5-12.5 [facility] Comment on above: Performed By: #### 5 363, 6399, 7600, 52139 #### [facility] [address], [address] [place] [address] [employer] Consultant: Wero Conn MD Platelets (Bld) [#/Vol] 188 10*3/uL Normal 140-400 [facility] Comment on above: Performed By: #### 5 363, 6399, 7600, 53568 #### [facility] [place] [address] [employer] Consultant: Wero Conn MD RBC (Bld) [#/Vol] 5.79 10*6/uL Normal 4.20-5.80 [facility] Comment on above: Performed By: #### 5 363, 6399, 7600, 73493 #### [facility] [place] [address] [employer] Consultant: Wero Conn MD WBC (Bld) [#/Vol] 7.3 10*3/uL Normal 3.8-10.8 [facility] Comment on above: Performed By: #### 5 363, 6399, 7600, 76313 #### [facility] [address], [address] [place] [address] [employer] Consultant: Wero Conn MD [facility] 09-02-2024 Albumin [Mass/Vol] 4.5 g/dL Normal 3.6-5.1 [facility] Comment on above: Performed By: #### 5 363, 6399, 7600, 19064 #### [facility] [address], [address] [place] [address] [employer] Consultant: Wero Conn MD Albumin/Globulin [Mass ratio] 2.0 {ratio} Normal 1.0-2.5 [facility] Comment on above: Performed By: #### 5 363, 6399, 7600, 53401 #### [facility] [address], [address] [place] [address] [employer] Consultant: Wero Conn MD ALP [Catalytic activity/Vol] 61 U/L Normal 35-144 [facility] Comment on above: Performed By: #### 5 363, 6399, 7600, 46201 #### [facility] [address], [address] [place] [address] [employer] Consultant: Wero Conn MD ALT [Catalytic activity/Vol] 16 U/L Normal 9-46 [facility] Comment on above: Performed By: #### 5 363, 6399, 7600, 94015 #### [facility] [address], [address] [place] [address] [employer] Consultant: Wero Conn MD AST [Catalytic activity/Vol] 16 U/L Normal 10-35 [facility] Comment on above: Performed By: #### 5 363, 6399, 7600, 37776 #### [facility] [address], [address] [place] [address] [employer] Consultant: Wero Conn MD Bilirubin [Mass/Vol] 2.1 mg/dL High 0.2-1.2 [facility] Comment on above: Performed By: #### 5 363, 6399, 7600, 85406 #### [facility] [address], [address] [place] [address] [employer] Consultant: Wero Conn MD Calcium [Mass/Vol] 9.0 mg/dL Normal 8.6-10.3 [facility] Comment on above: Performed By: #### 5 363, 6399, 7600, 59808 #### [facility] [address], [address] [place] [address] [employer] Consultant: Wero Conn MD Chloride [Moles/Vol] 103 mmol/L Normal 98-110 [facility] Comment on above: Performed By: #### 5 363, 6399, 7600, 87846 #### [facility] [address], [address] [place] [address] [employer] Consultant: Wero Conn MD CO2 [Moles/Vol] 27 mmol/L Normal 20-32 [facility] Comment on above: Performed By: #### 5 363, 6399, 7600, 89453 #### [facility] [address], [address] [place] [address] [employer] Consultant: Wero Conn MD Creatinine [Mass/Vol] 1.38 mg/dL High 0.70-1.[address] [facility] Comment on above: Performed By: #### 5 363, 6399, 7600, 68090 #### [facility] [place] [address] [employer] Consultant: Wero Conn MD GFR/1.73 sq M.predicted among non-blacks MDRD (S/P/Bld) [Vol rate/Area] 56 mL/min/{1.73_m2} Low > OR = 60 [facility] Comment on above: Performed By: #### 5 363, 6399, 7600, 20899 #### [facility] [address], [address] [place] [address] [employer] Consultant: Wero Conn MD Globulin (S) [Mass/Vol] 2.2 g/dL Normal 1.9-3.7 [facility] Comment on above: Performed By: #### 5 363, 6399, 7600, 88918 #### [facility] [address], [address] [place] [address] [employer] Consultant: Wero Conn MD Glucose [Mass/Vol] 90 mg/dL Normal 65-99 [facility] Comment on above: Result Comment: Fasting reference interval Performed By: #### 5 363, 6399, 7600, 98621 #### [facility] [address], [address] [place] [address] [employer] Consultant: Wero Conn MD Potassium [Moles/Vol] 4.7 mmol/L Normal 3.5-5.3 [facility] Comment on above: Performed By: #### 5 363, 6399, 7600, 49770 #### [facility] [address], [address] [place] [address] [employer] Consultant: Wero Conn MD Protein [Mass/Vol] 6.7 g/dL Normal 6.1-8.1 [facility] Comment on above: Performed By: #### 5 363, 6399, 7600, 90237 #### [facility] [address], [address] [place] [address] [employer] Consultant: Wero Conn MD Sodium [Moles/Vol] 141 mmol/L Normal 135-146 [facility] Comment on above: Performed By: #### 5 363, 6399, 7600, 37388 #### [facility] [address], [address] [place] [address] [employer] Consultant: Weor Conn MD Urea nitrogen [Mass/Vol] 19 mg/dL Normal 7-25 [facility] Comment on above: Performed By: #### 5 363, 6399, 7600, 11233 #### [facility] [address], [address] [place] [address] [employer] Consultant: Wero Conn MD Urea nitrogen/Creatinine [Mass ratio] 14 mg/mg Normal 6-22 [facility] Comment on above: Performed By: #### 5 363, 6399, 7600, 07130 #### [facility] [address], [address] [place] [address] [employer] Consultant: Wero Conn MD LIPID PANEL, [facility] [place] 12-0 Cholesterol [Mass/Vol] 217 mg/dL High <200 [facility] Comment on above: Order Comment: FASTI NG:YES FASTING: YES Performed By: #### 5 363, 6399, 7600, 26203 #### [facility] [address], [address] [place] [address] [employer] Consultant: Wero Conn MD Cholesterol in HDL [Mass/Vol] 34 mg/dL Low > OR = 40 [facility] Comment on above: Order Comment: FASTI NG:YES FASTING: YES Performed By: #### 5 363, 6399, 7600, 19333 #### [facility] [address], [address] [place] [address] [employer] Consultant: Wero Conn MD Cholesterol in LDL [Mass/Vol] 151 mg/dL High [facility] Comment on above: Order Comment: FASTI NG:YES FASTING: YES Result Comment: Refe rence range: <100 Desirable range <100 mg/dL for primary prevention; <70 mg/dL for patients with CHD or diabetic patients with > or = 2 CHD risk factors. LDL-C is now calculated using the Jame-Tim calculation, which is a validated novel method providing better accuracy than the Friedewald equation in the estimation of LDL-C. Jame LEVY et al. SHARONA. 2013;310(19): 7882-5874 (http://education.Hochy eto.PostPath/faq/QCX448) Performed By: #### 5 363, 6399, 7600, 56067 #### [facility] [address], [address] [place] [address] [employer] Consultant: Wero Conn MD Cholesterol.total/Polina sterol in HDL [Mass ratio] 6.4 {ratio} High <5.0 [facility] Comment on above: Order Comment: FASTI NG:YES FASTING: YES Performed By: #### 5 363, 6399, 7600, 89124 #### [facility] [address], [address] [place] [address] [employer] Consultant: Wero Conn MD NON HDL CHOLESTEROL 183 mg/dL (calc) High <130 [facility] Comment on above: Order Comment: FASTI NG:YES FASTING: YES Result Comment: For patients with diabetes plus 1 major ASCVD risk factor, treating to a non-HDL-C goal of <100 mg/dL (LDL-C of <70 mg/dL) is considered a therapeutic option. Performed By: #### 5 363, 6399, 7600, 89244 #### [facility] [address], [address] [place] [address] [employer] Consultant: Wero Conn MD Triglyceride [Mass/Vol] 183 mg/dL High <150 [facility] Comment on above: Order Comment: FASTI NG:YES FASTING: YES Performed By: #### 5 363, 6399, 7600, 81299 #### [facility] [address], [address] [place] [address] [employer] Consultant: Wero Conn MD PSA, TOTALon 09-02-2024 PSA, TOTAL 1.25 ng/mL Normal < OR = 4.00 [facility] Comment on above: Result Comment: The total PSA value from this assay system is standardized against the WHO standard. The test result will be approximately 20% lower when compared to the equimolar-standardized total PSA ([place]ruce [place]). Comparison of serial PSA results should be interpreted with this fact in mind. This test was performed using the Siemens chemiluminescent method. Values obtained from different assay methods cannot be used interchangeably. PSA levels, regardless of value, should not be interpreted as absolute evidence of the presence or absence of disease. Performed By: #### 5 363, 6399, 7600, 10711 #### [facility] [address], 05 [place] [address] [employer] Consultant: Wero Conn MD TSHon 09-02-2024 TSH Qn 1.77 m[IU]/L Normal 0.40-4.50 [facility] Comment on above: Performed By: #### 5 363, 6399, 7600, 93111 #### [facility] [address], [address] [place] [address] [employer] Consultant: Wero Conn MD ELA Comprehensive Panelon ELA TABLE Comment Normal . [facility] Comment on above: Result Comment: Auto antibody [...] Sm (anti-Marroquin) SLE 15 - 30% --------- CONSULTING INTERN Mixed Connective Tissue Disease 95% (U1 nRNP, SLE 30 - 50% anti-ribonucleoprotein) Polymyositis and/or Dermatomyositis 20% --------- Scl-70 (antiDNA Scleroderma (diffuse) 20 - 35% topoisomerase) Crest 13% --------- Maria Guadalupe-1 Polymyositis and/or Dermatomyositis 20 - 40% --------- Centromere B Scleroderma - Crest variant 80% Performed at: [address] [id number] Glassblower: Uriel Zelaya PhD, Phone: [phone] Performed By: #### L 7000.5300, L3686.9878, O480.9077 #### [facility] [address] [place], [address] ANTI-CENT B AB <0.2 Normal 0.0-0.[address] [facility] Comment on above: Performed By: #### L 7000.5300, L3100.5440, L536.7136 #### [facility] [address] [place], [address] ANTI-DNA (DS)AB 5 IU/mL Normal 0-[address] [facility] Comment on above: Result Comment: Nega tive <5 Equivocal 5 - 9 Positive >9 Performed By: #### L 7000.5300, L3100.5440, L500.4050 #### [facility] [address] [place], [address] ANTI-MARIA GUADALUPE-1 <0.2 Normal 0.0-0.[address] [facility] Comment on above: Performed By: #### L 7000.5300, L3100.5440, L500.4050 #### [facility] [address] [place], [address] ANTI-SS-A < 0.2 Normal 0.0-0.[address] [facility] Comment on above: Performed By: #### L 7000.5300, L3100.5440, L500.4050 #### [facility] [address] [place], [address] ANTI-SS-B < 0.2 Normal 0.0-0.[address] [facility] Comment on above: Performed By: #### L 7000.5300, L3100.5440, L500.4050 #### [facility] [address] [place], [address] ANTICHROMATIN <0.2 Normal 0.0-0.[address] [facility] Comment on above: Performed By: #### L 7000.5300, L3100.5440, L500.4050 #### [facility] [address] [place], [address] ANTISCLERODERM <0.2 Normal 0.0-0.[address] [facility] Comment on above: Performed By: #### L 7000.5300, L3100.5440, L500.4050 #### [facility] [address] [place], [address] CONSULTING INTERN Ab <0.2 Normal 0.0-0.[address] [facility] Comment on above: Performed By: #### L 7000.5300, L3100.5440, L500.4050 #### [facility] [address] [place], [address] MARROQUIN Ab <0.2 Normal 0.0-0.[address] [facility] Comment on above: Performed By: #### L 7000.5300, L3100.5440, L500.4050 #### [facility] [address] [place], [address] Lyme Screen W/Reflex WBon LYME SCREEN Ab Negative Normal Negative [facility] Comment on above: Result Comment: Lyme antibodies not detected. Reflex testing is not indicated. No laboratory evidence of infection with B. burgdorferi (Lyme disease). Negative results may occur in patients recently infected (less than or equal to 14 days) with B. burgdorferi. If recent infection is suspected, repeat testing on a new sample collected in 7 to 14 days is recommended. Performed at: [address] [id number] Glassblower: Uriel Zelaya PhD, Phone: [phone] Performed By: #### L 7000.5300, L3100.5440, L500.4050 #### [facility] [address] [place], [address] Comprehensive Metabolic Prof ilon 07-27-2024 Albumin [Mass/Vol] 4.2 g/dL Normal 3.2-5.0 [facility] Comment on above: Performed By: #### L 7000.5300, L3100.5440, L500.4050 #### [facility] [address] [place], [address] Albumin/Globulin [Mass ratio] 1.6 {ratio} Normal 0.9-2.[address] [facility] Comment on above: Performed By: #### L 7000.5300, L3100.5440, L500.4050 #### [facility] [address] [place], [address] ALK P 70 U/L Normal 45-[address] [facility] Comment on above: Performed By: #### L 7000.5300, L3100.5440, L500.4050 #### [facility] [address] [place], [address] ALT [Catalytic activity/Vol] 31 U/L Normal 16-[address] [facility] Comment on above: Performed By: #### L 7000.5300, L3100.5440, L500.4050 #### [facility] [address] [place], [address] AST [Catalytic activity/Vol] 21 U/L Normal 15-[address] [facility] Comment on above: Performed By: #### L 7000.5300, L3100.5440, L500.4050 #### [facility] [address] [place], [address] Bilirubin [Mass/Vol] 1.80 mg/dL High 0.20-1.00 [facility] Comment on above: Result Comment: For patients on eltrombopag therapy, use of Dimension Erwinna TBIL is not recommended. Performed By: #### L 7000.5300, L3100.5440, L500.4050 #### [facility] [address] [place], [address] BUN/CRE 8.4 RATIO Low 10-[address] [facility] Comment on above: Performed By: #### L 7000.5300, L3100.5440, L500.4050 #### [facility] [address] [place], [address] CA,Total 8.8 mg/dL Normal 8.5-10.[address] [facility] Comment on above: Performed By: #### L 7000.5300, L3100.5440, L500.4050 #### [facility] [address] [place], [address] Chloride [Moles/Vol] 107 mmol/L Normal 98-107 [facility] Comment on above: Performed By: #### L 7000.5300, L3100.5440, L500.4050 #### [facility] [address] [place], [address] CO2 [Moles/Vol] 29.0 mmol/L Normal 21.0-32.[address] [facility] Comment on above: Performed By: #### L 7000.5300, L3100.5440, L500.4050 #### [facility] [address] [place], [address] Creatinine [Mass/Vol] 1.79 mg/dL High 0.70-1.30 [facility] Comment on above: Result Comment: The validity of the calculated GFR GFRAA in patients over 70 years has not been determined. Clinical correlation is essential. Performed By: #### L 7000.5300, L3100.5440, L500.4050 #### [facility] [address] [place], [address] EST GFR - AA 49 mL/min Low >[address] [facility] Comment on above: Result Comment: Afri can [place] GFR Calc Performed By: #### L 7000.5300, L3100.5440, L500.4050 #### [facility] [address] [place], [address] GAP 5 Normal 5-[address] [facility] Comment on above: Performed By: #### L 7000.5300, L3100.5440, L500.4050 #### [facility] [address] [place], [address] GFR/1.73 sq M.predicted among non-blacks MDRD (S/P/Bld) [Vol rate/Area] 40 mL/min/{1.73_m2} Low >[address] [facility] Comment on above: Result Comment: Non- GFR Calc Performed By: #### L 7000.5300, L3100.5440, L500.4050 #### [facility] [address] [place], [address] Globulin (S) [Mass/Vol] 2.7 g/dL Normal 2.2-4.2 [facility] Comment on above: Performed By: #### L 7000.5300, L3100.5440, L500.4050 #### [facility] [address] [place], [address] Glucose [Mass/Vol] 105 mg/dL Normal 74-106 [facility] Comment on above: Result Comment: Fast ing Glucose result from 100 to 125 mg/dL suggests IMPAIRED HOMEOSTASIS per A.D.A. criteria. Performed By: #### L 7000.5300, L3100.5440, L500.4050 #### [facility] [address] [place], [address] Potassium [Moles/Vol] 4.7 mmol/L Normal 3.5-5.1 [facility] Comment on above: Performed By: #### L 7000.5300, L3100.5440, L500.4050 #### [facility] [address] [place], [address] Sodium [Moles/Vol] 140 mmol/L Normal 136-145 [facility] Comment on above: Performed By: #### L 7000.5300, L3100.5440, L500.4050 #### [facility] [address] [place], [address] T PROT 6.9 g/dL Normal 6.4-8.[address] [facility] Comment on above: Performed By: #### L 7000.5300, L3100.5440, L500.4050 #### [facility] [address] [place], [address] Urea nitrogen [Mass/Vol] 15 mg/dL Normal 7-[address] [facility] Comment on above: Performed By: #### L 7000.5300, L3100.5440, L500.4050 #### [facility] [address] [place], [address] ED Physician Reporton 2023 ED Physician Report ARTURO SNOW DOB:1955 Registration Date:05/14/2024 Basic Information Time Seen: KELLIE [...] up, he was diaphoretic. He went to [place] emergency department. He reports that he had an EKG and CT of his head and neck. I was able to receive records from [place]. Patient did have a CT angio of [...] Patient will be placed in observation on [facility] at this time for further hydration. He [...] 150 mmHg (more content not included)... Normal [facility] Consult Reporton 05-18-2024 Consult Report Patient: ARTURO SNOW Age: 68 years Sex: Male : 1955 Associated Diagnoses: None Author: DAYANA RAMOS MDSH History of Present Illness 8-year-old male. I reviewed the records from [facility]Emergency room Chief complaint syncope. Background history Shortness [...] I then reviewed ER records 05/14/2020 for [facility] Came in for lightheadedness. Had room spinning [...] fL 05/15/24 Lymph % 15.2 % 05/15/24 [place] % 8.8 % (more content not included)... Normal [facility] ACETAMINOPHEN 325 MG TABon 0 05-15-2024 ACETAMINOPHEN [...] Mendoza RN - 05/15/2024 2:53 EDT Normal [facility] Comment on above: Order Comment: Order entered secondary to inpatient admission. AUTO DIFFon 05-15-2024 Baso Count 0.07 x1000 Normal 0.00-0.20 [facility] Comment on above: Performed By: #### 1 28245, 5515563, 678273, 7086886 #### [facility] [address] [place], [place] [address] [employer] Consultant: Jame Muhammad MD Basos % 0.9 % Normal [facility] Comment on above: Performed By: #### 1 56637, 4468958, 359767, 4326477 #### [facility] [address] [place], [place] [address] [employer] Consultant: Jame Muhammad MD Eos Count 0.27 x1000 Normal 0.00-0.50 [facility] Comment on above: Performed By: #### 1 01197, 3095911, 483750, 5055498 #### [facility] [address] [place], [place] [address] [employer] Consultant: Jame Muhammad MD Eosinophils/100 WBC (Bld) 3.4 % Normal [facility] Comment on above: Performed By: #### 1 44160, 2266136, 695832, 1387591 #### [facility] [address] [place], [place] [address] [employer] Consultant: Jame Muhammad MD Lymph Count 1.21 x1000 Normal 1.20-4.80 [facility] Comment on above: Performed By: #### 1 84417, 8668330, 148016, 5372007 #### [facility] [address] [place] [address] [employer] Consultant: Jame Muhammad MD Lymphocytes/100 WBC (Bld) 15.2 % Normal [facility] Comment on above: Performed By: #### 1 61287, 9618627, 289330, 9835727 #### [facility] [address] [place] [address] [employer] Consultant: Jame Muhammad MD Gilmer Count 0.70 x1000 Normal 0.10-1.00 [facility] Comment on above: Performed By: #### 1 31811, 7918267, 386523, 9921811 #### [facility] [address] [place] [address] [employer] Consultant: Jame Muhammad MD Monocytes/100 WBC (Bld) 8.8 % Normal [facility] Comment on above: Performed By: #### 1 94863, 0804255, 750598, 0063516 #### [facility] [address] [place] [address] [employer] Consultant: Jame Muhammad MD Neutrophil Count (ANC) 5.72 x1000 Normal 1.40-8.80 [facility] Comment on above: Performed By: #### 1 42488, 2098069, 589151, 1325000 #### [facility] [address] [place] [address] [employer] Consultant: Jame Muhammad MD Neutrophils/100 WBC (Bld) 71.8 % Normal [facility] Comment on above: Performed By: #### 1 16514, 3572180, 998010, 2389660 #### [facility] [address] [place] [address] [employer] Consultant: Jame Muhammad MD COMPMETAosantosh 05-15-2024 Albumin [Mass/Vol] 3.8 g/dL Normal 3.4-5.0 [facility] Comment on above: Performed By: #### 1 62368, 4773416, 026625, 8428930 #### [facility] [address] [place] [address] [employer] Consultant: Jame Muhammad MD Albumin/Globulin [Mass ratio] 1.7 {ratio} Normal [facility] Comment on above: Performed By: #### 1 93595, 2018813, 435402, 3276412 #### [facility] [address] [place] [address] [employer] Consultant: Jame Muhammad MD Alk Phos 65 unit/L Normal 45-117 [facility] Comment on above: Performed By: #### 1 54811, 6164583, 278462, 6806539 #### [facility] [address] [place] [address] [employer] Consultant: Jame Muhammad MD Bilirubin [Mass/Vol] 1.60 mg/dL High 0.30-1.20 [facility] Comment on above: Result Comment: Use of this assay is not recommended for patients undergoing treatment with eltrombopag due to the potential for falsely elevated results. Performed By: #### 1 12692, 0167371, 586101, 2884280 #### [facility] [address] [place] [address] [employer] Consultant: Jame Muhammad MD Calcium [Mass/Vol] 8.9 mg/dL Normal 8.7-10.4 [facility] Comment on above: Performed By: #### 1 79329, 6423123, 625582, 9778180 #### [facility] [address] [place] [address] [employer] Consultant: Jame Muhammad MD Chloride [Moles/Vol] 106 mmol/L Normal 98-107 [facility] Comment on above: Performed By: #### 1 17887, 4104145, 431077, 9100899 #### [facility] [address] [place] [address] [employer] Consultant: Jame Muhammad MD CO2 [Moles/Vol] 30.0 mmol/L Normal 20.0-31.0 [facility] Comment on above: Performed By: #### 1 68130, 0584072, 249088, 5052792 #### [facility] [address] [place] [address] [employer] Consultant: Jame Muhammad MD Creatinine [Mass/Vol] 1.4 mg/dL High 0.6-1.1 [facility] Comment on above: Performed By: #### 1 33422, 4825096, 578066, 7149651 #### [facility] [address] [place] [address] [employer] Consultant: Jame Muhammad MD GFR AA >60 Normal [facility] Comment on above: Result Comment: Afri can [place] GFR Calc Medical judgement is necessary to [...] for drug dosing. Performed By: #### 1 79614, 2731454, 742697, 5447772 #### [facility] [address] [place] [address] [employer] Consultant: Jame Muhammad MD Globulin (S) [Mass/Vol] 2.2 g/dL Normal [facility] Comment on above: Performed By: #### 1 87195, 7330531, 009292, 2708748 #### [facility] [address] [place] [address] [employer] Consultant: Jame Muhammad MD Glomerular Filtration Rate 50 mL/min/1.73m? Normal [facility] Comment on above: Result Comment: Non- GFR [...] for drug dosing. Performed By: #### 1 68132, 8906818, 734146, 2407307 #### [facility] [address] [place] [address] [employer] Consultant: Jame Muhammad MD Glucose [Mass/Vol] 92 mg/dL Normal 74-106 [facility] Comment on above: Performed By: #### 1 53578, 9816550, 857254, 3692749 #### [facility] [address] [place] [address] [employer] Consultant: Jame Muhammad MD GOT 19 unit/L Normal 15-37 [facility] Comment on above: Performed By: #### 1 55127, 6555730, 795604, 3654661 #### [facility] [address] [place] [address] [employer] Consultant: Jame Muhammad MD GPT 24 unit/L Normal 10-49 [facility] Comment on above: Performed By: #### 1 04301, 4636298, 823407, 7632761 #### [facility] [address] [place] [address] [employer] Consultant: Jame Muhammad MD Osmolality [Osmolality] 284 mosm/kg Normal 275-295 [facility] Comment on above: Performed By: #### 1 25857, 3513485, 835624, 4530865 #### [facility] [address] [place] [address] [employer] Consultant: Jame Muhammad MD Potassium [Moles/Vol] 4.5 mmol/L Normal 3.5-5.1 [facility] Comment on above: Performed By: #### 1 62790, 4813419, 746809, 3490462 #### 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 [address] [place] [address] [employer] Consultant: Jame Muhammad MD Sodium [Moles/Vol] 142 mmol/L Normal 135-145 [facility] Comment on above: Performed By: #### 1 46981, 1763784, 710826, 0504923 #### [facility] [address] [place] [address] [employer] Consultant: Jame Muhammad MD Urea nitrogen [Mass/Vol] 16 mg/dL Normal 9-23 [facility] Comment on above: Result Comment: - Ve nipuncture should occur prior to N-Acetyl Cysteine (NAC) or Metamizole (Sulpyrine) administration due to the potential for falsely depressed results. - Blood samples from some patients with monoclonal gammopathies may produce falsely elevated results Performed By: #### 1 66567, 8805511, 665963, 8390417 #### [facility] [address] [place] [address] [employer] Consultant: Jame Muhammad MD Urea nitrogen/Creatinine [Mass ratio] 11.4 mg/mg Normal [facility] Comment on above: Performed By: #### 1 86476, 4907107, 971303, 2640686 #### [facility] [address] [place] [address] [employer] Consultant: Jame Muhammad MD Consult Reporton 05-15-2024 Consult [...] the chair, EMS came took him to [place] ER then discharged home. Then at home he had same symptoms and came here. He had a cyst removed from his posterior neck a few weeks ago and has been having posterior headaches and neck pains since then. He denies chest pain. No history of CAD, IA, CHF. Past Medical History: Hypothyroidism Surgical History: [...] CHLORIDE SYR/VIAL 10ML 3 mL, IV Push, [id number] TAMSULOSIN 0.4MG CAP 0.4 mg 1 caps, ORAL, DAILY Continuous: (1) SODIUM CHLORIDE 0.9% 1,000 mL 1,000 mL, IV, 100 mL/hr PRN: (11) ACETAMINOPHEN 325 MG TAB 650 mg 2 tabs, ORAL, [id number] ACETAMINOPHEN 325 MG TAB 650 mg 2 tabs, ORAL, [id number] ACETAMINOPHEN 325 MG TAB 650 mg 2 tabs, ORAL, [id number] HydrALAZINE 20MG/1ML INJ 10 mg 0.5 mL, IV Push, [id number] MECLIZINE 25MG TABLET 25 mg 1 tabs, ORAL, TID MELATONIN 5MG TAB 5 mg 1 tabs, ORAL, [id number] NALOXONE 0.4MG/1ML INJ 0.4 mg 1 mL, IV Push, PRN ONDANSETRON=ZOFRAN INJ 4 mg 2 mL, IV Push, [id number] PERFLUTREN 2 ML INJ 2 ML, IV [...] he did contact the general surgeon in [place] and they do not feel the symptoms [...] primary servic (more content not included)... Normal [facility] Discharge Educationon 2023 Discharge Education Patient Education Material Normal [facility] HEMOon 05-15-2024 DIFF? No Normal [facility] Comment on above: Performed By: #### 1 32230, 7916114, 300882, 9376451 #### [facility] [address] [place] [address] [employer] Consultant: Jame Muhammad MD Erythrocyte distribution width (RBC) [Ratio] 14.1 % Normal 11.5-14.5 [facility] Comment on above: Performed By: #### 1 50919, 4085759, 849096, 1394221 #### [facility] [address] [place] [address] [employer] Consultant: Jame Muhammad MD Hematocrit (Bld) [Volume fraction] 47.9 % Normal 41.0-52.0 [facility] Comment on above: Performed By: #### 1 45556, 7427035, 415565, 7914642 #### [facility] [address] [place] [address] [employer] Consultant: Jame Muhammad MD Hemoglobin (Bld) [Mass/Vol] 16.6 g/dL Normal 13.5-17.5 [facility] Comment on above: Performed By: #### 1 , 1617301, 622438, 4484539 #### [facility] [address] [place], [place] [address] [employer] Consultant: Jame Muhammad MD Instr WBC 8.0 Normal [facility] Comment on above: Performed By: #### 1 46715, 9983544, 889310, 3616804 #### [facility] [address] [place] [address] [employer] Consultant: Jame Muhammad MD MCH (RBC) [Entitic mass] 31.5 pg Normal 27.0-34.0 [facility] Comment on above: Performed By: #### 1 47910, 8904546, 267364, 1618896 #### [facility] [address] [place], [place] [address] [employer] Consultant: Jame Muhammad MD MCHC (RBC) [Mass/Vol] 34.8 g/dL Normal 32.0-37.0 [facility] Comment on above: Performed By: #### 1 49358, 4357031, 499986, 5817708 #### [facility] [address] [place] [address] [employer] Consultant: Jame Muhammad MD MCV (RBC) [Entitic vol] 90.6 fL Normal 80.0-100.0 [facility] Comment on above: Performed By: #### 1 33605, 2267708, 286136, 4684677 #### [facility] [address] [place] [address] Commercial Solar Sales Consultant: Jame Muhammad MD Nucleated RBC 0 /100WBC Normal [facility] Comment on above: Performed By: #### 1 83813, [id number], 470628, [id number] #### [facility] Laboratory Services [address] [place] [address] [employer] Consultant: Jame Muhammad MD Platelet 157 x10 Normal 150-450 [facility] Comment on above: Performed By: #### 1 63144, 1830918, 235727, 3805524 #### [facility] Laboratory Services [address] [place] [address] [employer] Consultant: Jame Muhammad MD Platelet mean volume (Bld) [Entitic vol] 8.8 fL Normal 7.4-10.4 [facility] Comment on above: Performed By: #### 1 75522, 7363524, 518315, 1447902 #### [facility] Laboratory Services [address] [place] [address] [employer] Consultant: Jame Muhammad MD RBC 5.29 x10 Normal 4.70-6.10 [facility] Comment on above: Result Comment: Note : RBC morphology is normal unless otherwise stated. Evaluation performed only if differential is requested. Performed By: #### 1 54745, 1742543, 636418, 1963084 #### [facility] Laboratory Services [address] [place] [address] [employer] Consultant: Jame Muhammad MD WBC 8.0 x10 Normal 4.5-11.0 [facility] Comment on above: Performed By: #### 1 84299, 6187607, 040969, 9703894 #### [facility] Laboratory Services [address] [place] [address] [employer] Consultant: Jame Muhammad MD Inpatient Patient Summaryon 05-15-2024 Inpatient Patient Summary [facility] Discharge Instructions [address] [place] [address] (Patient Copy) Name: ARTURO SNOW : 1955 Diagnosis: Allergies: No Known Allergies Registration Date: 05/14/24 [facility]#: [id number] Current Date Time: 05/15/2024 16:05:03 Address: [address] [place] [address] [place] [address] Primary Care Provider: Name: OSKAR GALVAN Thank you for choosing [facility] for your care. You are very important to us. Our goal is to demonstrate our high quality medical care and provide you with a very good patient experience. You may receive a survey about our service. Please take the time to complete the survey and return it so we can continue to enhance our service. Thank you again for allowing [facility] to care for your medical needs. If [...] Address: When: DR CARMEN MACEDO ON STAFF [address], [address] [place] [address] Business (1) Comments: Follow up [...] leaflets, if any, will display below losartan (lev North What is the most important information I [...] blood pre (more content not included)... Normal [facility] LIPID PNLon 05-15-2024 Calculated LDL Cholesterol 136 mg/dL High 60-130 [facility] Comment on above: Result Comment: <100 mg/dl Optimal 100-129 mg/dl Near Optimal 130-159 mg/dl Borderline High 160-189 mg/dl High >=190 mg/dl Very High Performed By: #### 1 99171, 3371733, 012318, 1334928 ####[facility] Laboratory [address] [place] [address] Medical Director: Jame Muhammad MD Cholesterol [Mass/Vol] 192 mg/dL Normal 100-200 [facility] Comment on above: Result Comment: Jerilyn puncture should occur prior to N-Acetyl Cysteine (NAC) or Metamizole (Sulpyrine) administration due to the potential for falsely depressed results. Performed By: #### 1 76377, 1576869, 602257, 9874236 ####[facility] Laboratory [address] [place] [address] Medical Director: Jame Muhammad MD Cholesterol in HDL [Mass/Vol] 29 mg/dL Low 40-60 [facility] Comment on above: Result Comment: Dire ct HDL Venipuncture should occur prior to metamizole (sulpyrine) administration due to the potential for falsely depressed results Performed By: #### 1 45537, 6013184, 509889, 7197118 ####[facility] Laboratory [address] [place] [address] Medical Director: Jame Muhammad MD Total Chol/HDL Chol Ratio 6.6 Normal [facility] Comment on above: Performed By: #### 1 96101, 9494886, 669857, 9377640 ####[facility] Laboratory [address] [place] [address] Medical Director: Jame Muhammad MD Triglyceride [Mass/Vol] 133 mg/dL Normal 30-150 [facility] Comment on above: Result Comment: - Ve nipuncture should occur prior to N-Acetyl Cysteine (NAC) or Metamizole (Sulpyrine) administration due to the potential for falsely depressed results - Use of this assay is not recommended for patients being treated with etamsylate because it causes falsely decreased results Performed By: #### 1 05004, 7696326, 191957, 9733228 ####[facility] Laboratory [address] [place] [address] Medical Director: Jame Muhammad MD OT Acute Time [...] pt self-aware;no functional impairments requiring skilled OT. [GALDINO Gómez Ashley - 05/15/2024 11:18 EDT] ) GALDINO Gómez Ashley - 05/15/2024 11:18 EDT Normal [facility] Youth Minister Detailson 2023 Youth Minister Details Youth Minister Details Entered On: 05/15/2024 2:53 EDT Performed On: 05/15/2024 2:53 EDT by Samanta Mendoza RN Youth Minister Details Transport Mode Order Detail EV : Wheelchair Isolation Precautions RTF : Communication CONSTANT Order, 05/14/2024 13:40:00 EDT, Constant Order, Current ACLS Provider may, Initiate [place] [employer] Advanced Cardiac Life support Algorithm per patient code status, Ordered Communication CONSTANT Order, 05/14/2024 13:40:00 EDT, Constant Order, STAT EKG for Chest Pain, STAT ABGs for Acute Respiratory Distress, STAT Potassium/Magnesium for any significant change in condition/rhythm, Ordered Notify Provider, 05/14/2024 13:40:00 EDT, Constant Order, Contact OBS Unit PA/ANCILLARY SPECIALIST for any change in clinical status, positive test results, abnormal rhythm, or EKG changes, Ordered Oxygen Therapy, 05/14/2024 13:40:00 EDT, Nasal Cannula, 2-3L, PRN, Ordered Consult Physician, 05/14/2024 12:37:00 EDT, DAVE RAMOS MD, dizziness, Completed Level of Care Order, 05/14/2024 [...] : No Pacemaker Order Detail : 0 Youth Minister Details Review Status : Reviewed, no changes Nurse Collects Blood Specimens : No Samanta Mendoza RN - 05/15/2024 2:53 EDT Normal [facility] Comment on above: Order Comment: Order entered secondary to inpatient admission. Pharmacy Clinical Interventi ons-Texton 05-15-2024 Pharmacy Clinical Interventions-Text Pharmacy Clinical Interventions Entered On: 05/15/2024 14:48 EDT Performed On: 05/15/2024 14:48 EDT by Jese Pollock RPh Interventions Intervention Type Pharmacy : Discharge Med Rec Intervention Pharmacy Order Initiated By : Pharmacist Clinical Importance Pharmacy : Potentially major Prescriber Response Pharmacy : Corrected prior to contact Patient Clinical Outcome Pharmacy : Avoided potential risk Pharmacist Intervention Time : 30 Maris [facility], Jese - 05/15/2024 14:48 EDT Pharmacy Additional Information : losartan new on dc. crestor added to discharge per dr kristan Pollock [facility], [facility] - 05/15/2024 16:00 EDT Normal [facility] Rehabilitation Inpt - Assign ment - Texton 05-15-2024 Rehabilitation Inpt - Assignment - Text Rehabilitation Inpatient - Assignment Entered On: 05/15/2024 15:34 EDT Performed On: 05/15/2024 15:34 EDT by Nayana Chavez PT Rehabilitation Inpatient - Assignment Physical Therapy : PMRPdeny , Nayana Sheehan PT - 05/15/2024 15:34 EDT Normal [facility] Rehabilitation Inpt - Assignment - Text Rehabilitation Inpatient - Assignment Entered On: 05/15/2024 7:26 EDT Performed On: 05/15/2024 7:26 EDT by Randy FAITHR/Kinjal Herrera Rehabilitation Inpatient - Assignment Occupational Therapy : Yuan OTR/L, Dinah AHMADI OTR/L, Kinjal Leach - 05/15/2024 7:54 EDT Normal [facility] Rehabilitation Inpt - Assignment - Text Rehabilitation Inpatient - Assignment Entered On: 05/15/2024 7:27 EDT Performed On: 05/15/2024 7:27 EDT by Karen PT, DPT, [facility] Rehabilitation Inpatient - Assignment Physical Therapy : Austyn LEWT, Lamonte Jones PT, DPT, [facility] - 05/15/2024 7:27 EDT Normal [facility] Utilization Review Noteon Utilization Review Note OBS ORDERED. DX: dizziness, near syncope. OBS RECOMMENDED. DC WRITTEN. DC PLAN: HOME. ED UM TO F/U Patient has been discharged. Normal [facility] Vascular Lab Reporton 2023 Vascular Lab Report VASCULAR LAB PRELIMINARY REPORT CAROTID DUPLEX SCAN COMPLETE. REPORT TO FOLLOW. PRELIMINARY REPORT SHOWS NO SIGNIFICANT BILATERAL PLAQUE. PATENT VERTEBRAL ARTERIES. Normal [facility] APTTon 05-14-2024 aPTT Coag (Bld) [Time] 31.5 s Normal 27.0-38.0 [facility] Comment on above: Result Comment: APTT Interpretation: This test has not been validated to monitor heparin therapy. APTT test is used as an initial test for suspected bleeding disorder. Anti-Xa UFH test is used to monitor heparin therapy. Performed By: #### 9 796924, 144545, CD:[id number], 637525, 406089, 103492, 729764 ####[facility] Laboratory [address] [place] [address] Medical Director: Jame Muhammad MD AUTO DIFFon 05-14-2024 Baso Count 0.02 x1000 Normal 0.00-0.20 [facility] Comment on above: Performed By: #### 9 523544, 712762, CD:[id number], 783066, 299550, 715880, 436175 ####[facility] Laboratory [address] [place] [address] Medical Director: Jame Muhammad MD Basos % 0.3 % Normal [facility] Comment on above: Performed By: #### 9 252514, 936744, CD:142436346, 855296, 372296, 834743, 835181 ####[facility] Laboratory [address] [place] [address] Medical Director: Jame Muhammad MD Eos Count 0.16 x1000 Normal 0.00-0.50 [facility] Comment on above: Performed By: #### 9 390736, 845872, CD:[id number], 088077, 970994, 237213, 342568 ####[facility] [address] [place] [address] Medical Director: Jame Muhammad MD Eosinophils/100 WBC (Bld) 2.2 % Normal [facility] Comment on above: Performed By: #### 9 803645, 968757, CD:312292910, 656183, 720582, 456923, 055220 ####[facility] Laboratory [address] [place] [address] Medical Director: Jame Muhammad MD Lymph Count 1.02 x1000 Low 1.20-4.80 [facility] Comment on above: Performed By: #### 9 001296, 425653, CD:[id number], 447705, 397217, 976901, 376530 ####[facility] Laboratory [address] [place] [address] Medical Director: Jame Muhammad MD Lymphocytes/100 WBC (Bld) 14.5 % Normal [facility] Comment on above: Performed By: #### 9 908383, 069948, CD:372205549, 062592, 114837, 392821, 329557 ####[facility] Laboratory [address] [place] [address] Medical Director: Jame Muhammad MD Gilmer Count 0.41 x1000 Normal 0.10-1.00 [facility] Comment on above: Performed By: #### 9 449698, 774876, CD:500999682, 831659, 122115, 980250, 297670 ####[facility] Laboratory [address] [place] [address] Medical Director: Jame Muhammad MD Monocytes/100 WBC (Bld) 5.8 % Normal [facility] Comment on above: Performed By: #### 9 191574, 202688, CD:914068141, 255703, 461103, 398745, 552581 ####[facility] [address] [place] [address] Medical Director: Jame Muhammad MD Neutrophil Count (ANC) 5.44 x1000 Normal 1.40-8.80 [facility] Comment on above: Performed By: #### 9 533228, 490251, CD:042975464, 020863, 111355, 866736, 427902 ####[facility] [address] [place] [address] Medical Director: Jame Muhammad MD Neutrophils/100 WBC (Bld) 77.2 % Normal [facility] Comment on above: Performed By: #### 9 047181, 268538, CD:299155463, 293158, 926102, 287312, 066390 ####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 ID Band, Falling [place], ID band check, Mobility support items readily available, Night light, Non-Slip footwear, Personal items within reach, Sensory aids within reach, Upper/Half-length side-rails up, Traffic path in room free of clutter, Wheels locked Demonstrates Ability to Use Call Light Successfully : Yes Philip Zhou - 05/14/2024 15:45 EDT Normal [facility] Comment on above: Order Comment: Order entered secondary to admission COMPMETAon 05-14-2024 Albumin [Mass/Vol] 4.1 g/dL Normal 3.4-5.0 [facility] Comment on above: Performed By: #### 9 270589, 337390, CD:357041912, 327087, 056467, 806095, 521937 ####[facility] Laboratory [address] [place] 6873730 Medical Director: Jame Muhammad MD Albumin/Globulin [Mass ratio] 1.6 {ratio} Normal [facility] Comment on above: Performed By: #### 9 989203, 249774, CD:259251579, 186414, 478931, 467108, 587553 ####[facility] [address] [place] [address] Medical Director: Jame Muhammad MD Alk Phos 69 unit/L Normal 45-117 [facility] Comment on above: Performed By: #### 9 348678, 235817, CD:056722544, 319400, 417928, 694517, 138171 ####[facility] [address] [place], [place] [address]) [phone] Director: Jame Muhammad MD Bilirubin [Mass/Vol] 2.00 mg/dL High 0.30-1.20 [facility] Comment on above: Result Comment: Use of this assay is not recommended for patients undergoing treatment with eltrombopag due to the potential for falsely elevated results. Performed By: #### 9 554391, 094210, CD:305292745, 841729, 422138, 698250, 247080 ####[facility] [address] [place], [place] [address]) [phone] Director: Jame Muhammad MD Calcium [Mass/Vol] 9.1 mg/dL Normal 8.7-10.4 [facility] Comment on above: Performed By: #### 9 110661, 771954, CD:810353004, 299583, 510825, 342320, 681466 ####[facility] Laboratory [address] [place], [place] [address]) [phone] Director: Jame Muhammad MD Chloride [Moles/Vol] 106 mmol/L Normal 98-107 [facility] Comment on above: Performed By: #### 9 442893, 035116, CD:042978819, 174820, 970486, 487556, 170229 ####[facility] Laboratory [address] [place], [place] [address]) [phone] Director: Jame Muhammad MD CO2 [Moles/Vol] 30.0 mmol/L Normal 20.0-31.0 [facility] Comment on above: Performed By: #### 9 071507, 941999, CD:799574708, 743790, 502653, 486632, 227853 ####[facility] [address] [place], [place] [address]) [phone] Director: Jame Muhammad MD Creatinine [Mass/Vol] 1.5 mg/dL High 0.6-1.1 [facility] Comment on above: Performed By: #### 9 381427, 551192, CD:802950587, 410319, 473109, 937258, 783949 ####[facility] Laboratory [address] [place] [address] Medical Director: Jame Muhammad MD GFR AA 56 [facility] Comment on above: Result Comment: Afri can [place] GFR Calc Medical judgement is necessary to [...] for drug dosing. Performed By: #### 9 132478, 305878, CD:346169356, 992973, 552583, 104814, 161351 ####[facility] [address] [place] [address] Medical Director: Jame Muhammad MD Globulin (S) [Mass/Vol] 2.5 g/dL Normal [facility] Comment on above: Performed By: #### 9 335204, 257807, CD:208702216, 937910, 391311, 195615, 744592 ####[facility] [address] [place] [address] Medical Director: Jame Muhammad MD Glomerular Filtration Rate 47 mL/min/1.73m? [facility] Comment on above: Result Comment: Non- GFR [...] for drug dosing. Performed By: #### 9 616976, 226960, CD:537588850, 351385, 612522, 701082, 400736 ####[facility] [address] [place] [address] Medical Director: Jame Muhammad MD Glucose [Mass/Vol] 132 mg/dL High 74-106 [facility] Comment on above: Performed By: #### 9 540159, 272323, CD:114753371, 957626, 042869, 677669, 016054 ####[facility] [address] [place] [address] Medical Director: Jame Muhammad MD GOT 17 unit/L Normal 15-37 [facility] Comment on above: Performed By: #### 9 455192, 184903, CD:231355726, 435318, 590500, 780007, 574599 ####[facility] [address] [place] [address] Medical Director: Jame Muhammad MD GPT 21 unit/L Normal 10-49 [facility] Comment on above: Performed By: #### 9 328929, 447091, CD:419584965, 319989, 761035, 062624, 623172 ####[facility] [address] [place] [address] Medical Director: Jame Muhammad MD Osmolality [Osmolality] 289 mosm/kg Normal 275-295 [facility] Comment on above: Performed By: #### 9 968733, 151429, CD:890025831, 227123, 968725, 423242, 455490 ####[facility] [address] [place] [address] Medical Director: Jame Muhammad MD Potassium [Moles/Vol] 4.2 mmol/L Normal 3.5-5.1 [facility] Comment on above: Performed By: #### 9 353812, 996203, CD:649864371, 620808, 313732, 888443, 506365 ####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 [address] [place] [address] Medical Director: Jame Muhammad MD Sodium [Moles/Vol] 143 mmol/L Normal 135-145 [facility] Comment on above: Performed By: #### 9 100399, 214529, CD:362529380, 387387, 021137, 100902, 236251 ####[facility] [address] [place] [address] Medical Director: Jame Muhammad MD Urea nitrogen [Mass/Vol] 19 mg/dL Normal 9-23 [facility] Comment on above: Result Comment: - Ve nipuncture should occur prior to N-Acetyl Cysteine (NAC) or Metamizole (Sulpyrine) administration due to the potential for falsely depressed results. - Blood samples from some patients with monoclonal gammopathies may produce falsely elevated results Performed By: #### 9 050436, 746124, CD:850023656, 523190, 200530, 097017, 895317 ####[facility] [address] [place] [address] Medical Director: Jame Muhammad MD Urea nitrogen/Creatinine [Mass ratio] 12.7 mg/mg Normal [facility] Comment on above: Performed By: #### 9 852060, 007880, CD:484117580, 168730, 453313, 989767, 085066 ####[facility] [address] [place] [address] Medical Director: Jame Muhammad MD CT BRAIN [...] SHRESTHA DO Signed Out: 05/14/24 15:00:25 Normal [facility] CT NECK LARYNX WO CONTRASTon 05-14-2024 CT [...] PÉREZ MD Signed Out: 05/14/24 14:57:27 Normal [facility] ED Data IMPLEMENTATION TECHNICIAN - Texton 024 ED Data IMPLEMENTATION TECHNICIAN - Text ED Data IMPLEMENTATION TECHNICIAN Entered On: 05/14/2024 9:16 EDT Performed On: 05/14/2024 8:50 EDT by Scarlett Melton RN ED General Intake Information Information Given By : Patient Pat Coma : Document Pat Coma Scale Problem [...] Scarlett Melton RN - 05/14/2024 9:12 EDT Lowell Coma Scale Eye Opening : Spontaneously Best Verbal Response : Oriented Best Motor Response : Obeys simple commands Lowell Coma Score (Ref) : 15 Scarlett Melton RN - 05/14/2024 9:12 EDT Problem History (As Of: 05/14/2024 09:16:33 EDT) Problems(Active) Hypothyroidism (SNOMED CT :86658952 ) Name of Problem: Hypothyroidism ; Recorder: Tessie Robledo RN; Confirmation: Confirmed ; Classification: Patient/Family Stated ; Code: [id number] ; Contributor System: [email or web address] ; Last Updated: 12/26/2013 17:39 EDT ; Life Cycle Date: 12/26/2013 ; Life Cycle Status: Active ; Vocabulary: SNOMED CT Diagnoses(Active) Dizziness Date: 05/14/2024 ; Diagnosis Type: Reason For Visit ; Confirmation: Confirmed ; Clinical Dx: Dizziness ; Classification: Medical ; Clinical Service: Non-Specified ; Code: PNED ; Probability: 0 ; Diagnosis Code: [id number] Syncope/Near syncope Date: 05/14/2024 ; Diagnosis Type: Reason For Visit ; Confirmation: Confirmed ; Clinical Dx: Syncope/Near syncope ; Classification: Medical ; Clinical Service: Non-Specified ; Code: PNED ; Probability: 0 ; Diagnosis Code: [id number] Procedure History ED Urinary Catheter Present on Admit to ED? : No Devices Present on Arrival To ED : None Scarlett Melton RN - 05/14/2024 9:12 EDT - Procedure History (As Of: 05/14/2024 09:16:33 EDT) Safety Screening Abuse/Violence Concerns? : Patient denies Does the patient have a medically restricted extremity? : Scarlett Noonan RN - 05/14/2024 9:12 EDT KINDER1 Fall [...] 9:12 EDT Infection Screening Travel outside of [facility] within past 21 days? : No Positive [...] evaluated or treated for BH conditions : Scarlett Noonan RN 05/14/2024 9:12 EDT Social History Are you [...] EDT by Tessie Robledo RN ) Normal [facility] ED Discharge Educationon ED Discharge Education Normal So [facility] ED Emergency Severity Index Adult-Texton 05-14-2024 ED Emergency Severity Index Adult-Text MARVIN - Adult Entered On: 05/14/2024 9:16 EDT Performed On: 05/14/2024 9:12 EDT by Scarlett eMlton RN DCP GENERIC CODE Visit Reason : dizzy, syncope 3 days ago Tracking Triage Date/Time : 05/14/2024 09:16 EDT Tracking Reg Status : Requested Tracking Acuity : 3H-Urgent Tracking Group : [id number] Tracking Scarlett Melton RN - 05/14/2024 9:12 EDT Normal [facility] ED Patient Summaryon 024 ED Patient Summary [facility] Emergency Department Discharge Instructions [address] [place] [address] (Patient Copy) Name: ARTURO SNOW : 1955 Allergies: No Known Allergies Diagnosis: Visit Date: 05/14/2024 08:46:06 Current Date Time: 05/14/2024 15:47:25 Address: [facility] [address] Primary Care Provider: Name: OSKAR GALVAN Emergency Department Care Providers: Primary Physician: PRIYANKA GREER MD Thank you for choosing [facility] for your emergency care. You are very important to us. Our goal is to demonstrate our high quality medical care, and provide you with a very good patient experience. You may receive a survey about our service. Please take the time to complete the survey and return it so we can continue to enhance our service. Thank you again for allowing the [facility] Emergency Department to care for your medical needs. If you have questions about your care or follow up information please contact us at [phone]. Follow-Up Instructions LILIA SNOWH has been given these follow-up instructions: Patient Education Materials ARTURO SNOW has been given the following patient education materials: BEFORE YOU LEAVE Set up your [facility] [employer] account! [employer] is a secure, online health management tool that connects you to portions of your hospital-based electronic medical record, allowing you to see test results, manage appointments, access discharge care instructions and much more. You can access [employer] from a computer, tablet or smartphone. Enrollment/registration is required. If you do not have a [employer] account, please provide us with an email address before you leave so that we may set up an account for you. New to [employer]! You may now securely connect some of the health management apps you use (e.g., fitness trackers, dietary trackers, etc.) to your health record in [facility] [employer]. This new feature provides expanded access to your health and wellness data, which will help you and your care team make informed decisions about your health care. If you are interested in using a health management odalis not currently connected to [employer], contact a Compressor Service Technician at [phone] or [email or web address]. We will determine if the odalis meets the technical requirements to connect to [facility] [employer] and assure the security of your private [...] health or substance abuse issue, please call [facility] at [phone] or the National Suicide Prevention Lifeline at . IGWENDOLYN KENNETH, have received the follow-up provider(s) list, medication information and patient education materials/instructions and have verbalized understanding. Patient Signature Date Time Provider Signature Date Time Normal [facility] ED Progress Noteon ED Progress Note 0850 - Present tot E D from home for intermittent dizziness. Patient is A&Ox3 and on room air. Patient states 3days ago he had dizziess with everything spinning. States he blacked out and fell at time of event and dos not remember much. States he went to [place] ED at that time. Per patient, this [...] - Spoke to CARLOS ENRIQUE Talley from [facility] for report. Family updated on plan of care. 1510 - Spoke to MRI - will transport patient to room when finished with test Normal [facility] ED Triage IMPLEMENTATION TECHNICIAN - Texton 05-14 ED Triage IMPLEMENTATION TECHNICIAN - Text ED Triage IMPLEMENTATION TECHNICIAN Enter ed On: 05/14/2024 9:15 EDT Performed [...] 6 ft 3 in) Pain Symptoms : Scarlett Noonan RN - 05/14/2024 9:12 EDT (As Of: 05/14/2024 09:15:39 EDT) Problems(Active) Hypothyroidism (SNOMED CT :65778394 ) Name of Problem: Hypothyroidism ; Recorder: Tessie Robledo RN; Confirmation: Confirmed ; Classification: Patient/Family Stated ; Code: [id number] ; Contributor System: [employer] ; Last Updated: 12/26/2013 17:39 EDT ; Life Cycle Date: 12/26/2013 ; Life Cycle Status: Active ; Vocabulary: SNOMED CT Diagnoses(Active) Dizziness Date: 05/14/2024 ; Diagnosis Type: Reason For Visit ; Confirmation: Confirmed ; Clinical Dx: Dizziness ; Classification: Medical ; Clinical Service: Non-Specified ; Code: PNED ; Probability: 0 ; Diagnosis Code: [id number] Syncope/Near syncope Date: 05/14/2024 ; Diagnosis Type: Reason For Visit ; Confirmation: Confirmed ; Clinical Dx: Syncope/Near syncope ; Classification: Medical ; Clinical Service: Non-Specified ; Code: PNED ; Probability: 0 ; Diagnosis Code: [id number] Reason for Visit (As Of: 05/14/2024 09:15:39 EDT) Problems(Active) Hypothyroidism (SNOMED CT :62272499 ) Name of Problem: Hypothyroidism ; Recorder: Tessie Robledo RN; Confirmation: Confirmed ; Classification: Patient/Family Stated ; Code: [id number] ; Contributor System: [employer] ; Last Updated: 12/26/2013 17:39 EDT ; Life Cycle Date: 12/26/2013 ; Life Cycle Status: Active ; Vocabulary: SNOMED CT Diagnoses(Active) Dizziness Date: 05/14/2024 ; Diagnosis Type: Reason For Visit ; Confirmation: Confirmed ; Clinical Dx: Dizziness ; Classification: Medical ; Clinical Service: Non-Specified ; Code: PNED ; Probability: 0 ; Diagnosis Code: [id number] Syncope/Near syncope Date: 05/14/2024 ; Diagnosis Type: Reason For Visit ; Confirmation: Confirmed ; Clinical Dx: Syncope/Near syncope ; Classification: Medical ; Clinical Service: Non-Specified ; Code: PNED ; Probability: 0 ; Diagnosis Code: [id number] Sepsis Screening Sepsis Vitals Screening ED : None/ NA(Peds) Scarlett Melton RN - 05/14/2024 9:12 EDT Normal [facility] HEMOon 05-14-2024 DIFF? No Normal [facility] Comment on above: Performed By: #### 9 093081, 932134, CD:[id number], 596486, 615584, 613699, 494935 ####[facility] [address] [place] [address] Medical Director: Jame Muhammad MD Erythrocyte distribution width (RBC) [Ratio] 14.5 % Normal 11.5-14.5 [facility] Comment on above: Performed By: #### 9 838779, 522186, CD:[id number], 389179, 157857, 919594, 948349 ####[facility] [address] [place] [address] Medical Director: Jame Muhammad MD Hematocrit (Bld) [Volume fraction] 50.4 % Normal 41.0-52.0 [facility] Comment on above: Performed By: #### 9 226898, 797170, CD:[id number], 569597, 172565, 540446, 343220 ####[facility] [address] [place] [address] Medical Director: Jame Muhammad MD Hemoglobin (Bld) [Mass/Vol] 17.2 g/dL Normal 13.5-17.5 [facility] Comment on above: Performed By: #### 9 926020, 991477, CD:[id number], 913162, 803140, 989993, 035457 ####[facility] [address] [place], [place] [id number]) [phone] Director: Jame Muhammad MD Instr WBC 7.0 Normal [facility] Comment on above: Performed By: #### 9 782213, 478282, CD:[id number], 245627, 505972, 855341, 839628 ####[facility] [address] [place], [place] [id number]) [phone] Director: Jame Muhammad MD MCH (RBC) [Entitic mass] 30.9 pg Normal 27.0-34.0 [facility] Comment on above: Performed By: #### 9 980531, 111774, CD:427872012, 293405, 758649, 743016, 196694 ####[facility] [address] [place], [place] [id number]) [phone] Director: Jame Muhammad MD MCHC (RBC) [Mass/Vol] 34.0 g/dL Normal 32.0-37.0 [facility] Comment on above: Performed By: #### 9 446759, 892699, CD:[id number], 347276, 833679, 465723, 696392 ####[facility] [address] [place], [place] [address]) [phone] Director: Jame Muhammad MD MCV (RBC) [Entitic vol] 90.7 fL Normal 80.0-100.0 [facility] Comment on above: Performed By: #### 9 611880, 747201, CD:[id number], 197608, 236355, 152115, 672078 ####[facility] [address] [place] [address]) [phone] Director: MD KAIA Zuniga 15.87 Normal 13.98-20.00 [facility] Comment on above: Result Comment: MDW Interpretation: [...] risk of Sepsis. Performed By: #### 9 210622, 043860, CD:[id number], 330632, 384267, 886399, 334874 ####[facility] [address] [place] [address] Medical Director: Jame Muhammad MD Nucleated RBC 0 /100WBC Normal [facility] Comment on above: Performed By: #### 9 782273, 571074, CD:[id number], 008174, 206590, 071751, 149956 ####[facility] [address] [place] [address] Medical Director: Jame Muhammad MD Platelet 168 x10 Normal 150-450 [facility] Comment on above: Performed By: #### 9 522545, 084035, CD:139181688, 962524, 205669, 586423, 003756 ####[facility] [address] [place] [address] Medical Director: Jame Muhammad MD Platelet mean volume (Bld) [Entitic vol] 8.9 fL Normal 7.4-10.4 [facility] Comment on above: Performed By: #### 9 752197, 075547, CD:046122271, 463647, 290356, 339645, 574188 ####[facility] [address] [place] [address] Medical Director: Jame Muhammad MD RBC 5.56 x10 Normal 4.70-6.10 [facility] Comment on above: Result Comment: Note : RBC morphology is normal unless otherwise stated. Evaluation performed only if differential is requested. Performed By: #### 9 399593, 183781, CD:[id number], 644799, 828270, 177039, 632730 ####[facility] [address] [place] [address] Medical Director: Jame Muhammad MD WBC 7.0 x10 Normal 4.5-11.0 [facility] Comment on above: Performed By: #### 9 318346, 084962, CD:537003705, 143122, 160887, 461471, 948936 ####[facility] [address] [place] [address] Medical Director: Jame Muhammad MD MG LEVELon 05-14-2024 Magnesium [Mass/Vol] 1.9 mg/dL Normal 1.6-2.6 [facility] Comment on above: Performed By: #### 9 877010, 165085, CD:858487451, 237982, 576367, 650535, 329826 ####[facility] [address] [place] [address] Medical Director: Jame Muhammad MD MR BRAIN WO CONTRASTon 05-14 MR BRAIN WO CONTRAST EXAM: MR BRAIN WO CONTRAST 05/14/2024 15:05 COMPARISON: Noncontrast MR Angiography of the [place] 05/14/2024 ; Noncontrast Head CT [...] for concurrent Noncontrast MR Angiography of the [place] 05/14/2024 for further comments regarding [...] for concurrent Noncontrast MR Angiography of the [place] 05/14/2024 for further comments regarding those structures. 2. If unexplained symptoms persist, consider completion MRI of the Brain, With Contrast[, and/or MRA of the Neck Vessels,] for further evaluation[, as directed by the neurologic exam]. . Electronically signed by: Max Hall MD 05/14/2024 03:47 PM EDT Technologist: TRISTEN GARCIA Dictated By: MAX HALL MD Signed By: MAX HALL MD Signed Out: 05/14/24 15:47:02 Normal [facility] MRA BRAIN WO CONTRASTon 04-27 MRA BRAIN WO CONTRAST EXAM: MRA BRAIN WO CONTRAST 05/14/2024 15:05 COMPARISON: Noncontrast MRI of the Brain 05/14/2024 ; Noncontrast Head CT 05/14/2024 CLINICAL INDICATION: Altered Mental Status ; syncope; dizziness and giddiness TECHNIQUE: Noncontrast MR Angiography of the [place] was performed per standard site [...] symptoms persist, consider CT Angiography of the [place] and Neck Vessels, With Contrast, for further evaluation. . Electronically signed by: Max Hall MD 05/14/2024 03:52 PM EDT RP Technologist: TRISTEN GARCIA Dictated By: MAX HALL MD Signed By: MAX HALL MD Signed Out: 05/14/24 15:52:15 Normal [facility] MRA BRAIN WO CONTRAST MRI Checklist Ente [...] items answered NO Information Given by : Scarlett Burnett RN - 05/14/2024 14:45 EDT Normal [facility] Youth Minister Detailson 2023 Youth Minister Details Youth Minister Details Entered On: 05/14/2024 15:39 EDT Performed On: 05/14/2024 15:39 EDT by Gerri Uriarte RN Youth Minister Details Transport Mode Order Detail EV : Wheelchair Isolation Precautions RTF : Communication CONSTANT Order, 05/14/2024 13:40:00 EDT, Constant Order, Current ACLS Provider may, Initiate [place] [employer] Advanced Cardiac Life support Algorithm per patient code status, Ordered Communication CONSTANT Order, 05/14/2024 13:40:00 EDT, Constant Order, STAT EKG for Chest Pain, STAT ABGs for Acute Respiratory Distress, STAT Potassium/Magnesium for any significant change in condition/rhythm, Ordered Notify Provider, 05/14/2024 13:40:00 EDT, Constant Order, Contact OBS Unit PA/ANCILLARY SPECIALIST for any change in clinical status, positive test results, abnormal rhythm, or EKG changes, Ordered Oxygen Therapy, 05/14/2024 13:40:00 EDT, Nasal Cannula, 2-3L, PRN, Ordered Consult Physician, 05/14/2024 12:37:00 EDT, DAVE RAMOS MD, js, Ordered Level of Care Order, 05/14/2024 12:37:00 [...] : No Pacemaker Order Detail : 0 Youth Minister Details Review Status : Initial Review Nurse Collects Blood Specimens : No Gerri Uriarte RN - 05/14/2024 15:39 EDT Normal [facility] Comment on above: Order Comment: Order entered secondary to admission PT INRon 05-14-2024 INR Coag (PPP) [Relative time] 1.1 {INR} Normal [facility] Comment on above: Result Comment: INR Reference Range: Normal reference range for INR on patients not on anticoagulant therapy: 0.9-1.1 General therapeutic range for patients on anticoagulant therapy: 2.0-3.5 Performed By: #### 9 771522, 623262, CD:[id number], 627589, 461593, 729909, 423038 ####[facility] [address] [place] [address] Medical Director: Jame Muhammad MD Protime Patient 12.7 seconds Normal 9.8-12.8 [facility] Comment on above: Performed By: #### 9 428641, 782403, CD:[id number], 713787, 180438, 302410, 871137 ####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 Helper Clinical Importance Pharmacy : Potentially minor Prescriber Response Pharmacy : Corrected prior to contact Patient Clinical Outcome Pharmacy : Avoided potential risk Pharmacist Intervention Time : 10 Pharmacy Additional Information : updated med list with pt addeed all meds Annie Blackwood CPhT - 05/14/2024 11:10 EDT Normal [facility] Progress Note-Physicianon Progress Note-Physician Patient: ARTURO SNOW [...] was called and he was transported to [place] ED where he believes he received a [...] lipid panel ATTENDING TO FOLLOW PATIENT Normal [facility] TROPONIN HS 0HRon 05-14-2024 Troponin HS 0 Hr <3 Low 3-53 [facility] Comment on above: Result Comment: Spec imens from some individuals with pathologically high gamma globulin levels may demonstrate depressed troponin values Performed By: #### 9 747053, 670475, CD:[id number], 457859, 340897, 152438, 496557 ####[facility] [address] [place], [place] [address]) [phone] Director: Jame Muhammad MD TROPONIN HS 2HRon 05-14-2024 Delta Troponin 2 Hr 0 pg/mL Normal 0-14 [facility] Comment on above: Result Comment: The term acute myocardial infarction should be used when there is acute myocardial injury with clinical evidence of acute myocardial ischemia and the rise or fall of serial Troponin HS values (delta troponin) greater than or equal to 15 pg/mL with at least one Troponin HS value above the 99th percentile reference range Performed By: #### C D:[id number] ####[facility] [address] [place] [address] Medical Director: Jame Muhammad MD Troponin HS 2 Hr 3 pg/mL Normal 353 [facility] Comment on above: Result Comment: Spec imens from some individuals with pathologically high gamma globulin levels may demonstrate depressed troponin values Performed By: #### C D:[id number] ####[facility] [address] [place] [address] Medical Director: Jame Muhammad MD TROPONIN HS 6HRon 05-14-2024 Delta Troponin 6 Hr 0 pg/mL Normal 0-14 [facility] Comment on above: Result Comment: The term acute myocardial infarction should be used when there is acute myocardial injury with clinical evidence of acute myocardial ischemia and the rise or fall of serial Troponin HS values (delta troponin) greater than or equal to 15 pg/mL with at least one Troponin HS value above the 99th percentile reference range Performed By: #### C [id number] ####[facility] [address] [place] [address] Medical Director: Jame Muhammad MD Troponin HS 6 Hr 3 pg/mL Normal 3-53 [facility] Comment on above: Result Comment: Spec imens from some individuals with pathologically high gamma globulin levels may demonstrate depressed troponin values Performed By: #### C D:[id number] ####[facility] [address] [place] [address] Medical Director: Jame Muhammad MD XR CHEST [...] ARROYO MD Signed Out: 05/14/24 10:02:22 Normal [facility] Basophil percentageOrdered B y: Amina Jaimes on 01-25-2023 Bilirubin [Mass/Vol] 1.80 mg/dL 0.20-1.00 [facility] Comment on above: For patients on eltr ombopag therapy, use of Dimension [place] TBIL is not recommended. Chloride [Moles/Vol] 104 mmol/L 98-107 [facility] Glucose [Mass/Vol] 140 mg/dL 74-106 [facility] Comment on above: Fasting Glucose resu lt greater than or equal to 126 mg/dL suggests DIABETES MELLITUS per A.D.A. criteria. Potassium [Moles/Vol] 4.0 mmol/L 3.5-5.1 [facility] Protein [Mass/Vol] 6.9 g/dL 6.4-8.2 [facility] Sodium [Moles/Vol] 140 mmol/L 136-145 [facility] Laboratory - Chemistry and C hemistry - challengeOrdered By: Amina Jaimes on 01-25-2023 ALP [Catalytic activity/Vol] 72 U/L 45-[address] [facility] ALT [Catalytic activity/Vol] 40 U/L 16-[address] [facility] CO2 [Moles/Vol] 29.0 mmol/L 21.0-32.[address] [facility] Globulin (S) [Mass/Vol] 2.9 g/dL 2.2-4.2 [facility] Urea nitrogen/Creatinine [Mass ratio] 12.0 mg/mg 10-[address] [facility] No Panel InformationOrdered By: Amina Jaimes on 01-25-2023 Estimated GFR (MDRD) Amer 64 mL/min >[address] [facility] Comment on above: GFR Calc Estimated GFR (MDRD) Non-Af Amer 53 mL/min >[address] [facility] Comment on above: Non- GFR Calc Prostate Specific Antigen Screen 2.05 ng/mL 0.00-4.[address] [facility] Comment on above: This test was perfor med using the TPSA assay method for the[employer] chemistry system. Values obtained with differentassay methods cannot be used interchangably.When changing PSA assays in the course of monitoring apatient, additional sequential testing should be carriedout to confirm baseline values. Thyroid Stimulating Hormone (TSH) 1.42 uIU/mL 0.358-3.[address] [facility] Serum or plasma albumin reta urement (mass/volume)Ordered By: Amina Jaimes on 01-25-2023 Albumin [Mass/Vol] 4.0 g/dL 3.2-5.0 [facility] Serum or plasma albumin/glob ulin mass ratioOrdered By: Amina Jaimes on 01-25-2023 Albumin/Globulin [Mass ratio] 1.4 {ratio} 0.9-2.[address] [facility] Serum or plasma calcium reta urement (mass/volume)Ordered By: Amina Jaimes on 01-25-2023 Calcium [Mass/Vol] 8.8 mg/dL 8.5-10.1 [facility] Serum or plasma creatinine m easurement (mass/volume)Ordered By: Amina Jaimes on 01-25-2023 Creatinine [Mass/Vol] 1.42 mg/dL 0.70-1.30 [facility] Comment on above: The validity of the calculated GFR & GFRAA in patients over 70 years has not been determined. Clinical correlation is essential. Serum or plasma urea nitroge n measurement (mass/volume)Ordered By: Amina Jaimes on 01-25-2023 Urea nitrogen [Mass/Vol] 17 mg/dL 7-[address] [facility] Thin prep Papanicolaou smear with manual screeningOrdered By: Amina Jaimes on 01-25-2023 Thin prep Papanicolaou smear with manual screening 24 U/L 15-[address] [facility] Thin prep Papanicolaou smear with manual screening 7 5-[address] [facility] Basophil percentageOrdered B y: Amina Jaimes on 10-08-2022 Bilirubin [Mass/Vol] 2.00 mg/dL 0.20-1.00 [facility] Comment on above: For patients on eltr ombopag therapy, use of Dimension [place] TBIL is not recommended. Chloride [Moles/Vol] 103 mmol/L 98-107 [facility] Glucose [Mass/Vol] 91 mg/dL 74-106 [facility] Potassium [Moles/Vol] 4.0 mmol/L 3.5-5.1 [facility] Protein [Mass/Vol] 7.0 g/dL 6.4-8.2 [facility] Sodium [Moles/Vol] 138 mmol/L 136-145 [facility] Laboratory - Chemistry and C hemistry - challengeOrdered By: Amina Jaimes on 10-08-2022 ALP [Catalytic activity/Vol] 70 U/L 45-[address] [facility] ALT [Catalytic activity/Vol] 31 U/L 16-[address] [facility] CO2 [Moles/Vol] 28.0 mmol/L 21.0-32.[address] [facility] Globulin (S) [Mass/Vol] 2.9 g/dL 2.2-4.2 [facility] Urea nitrogen/Creatinine [Mass ratio] 14.7 mg/mg 10-[address] [facility] No Panel InformationOrdered By: Amina Jaimes on 10-08-2022 Estimated GFR (MDRD) Amer 64 mL/min >[address] [facility] Comment on above: GFR Calc Estimated GFR (MDRD) Non-Af Amer 53 mL/min >[address] [facility] Comment on above: Non- GFR Calc Serum or plasma albumin reta urement (mass/volume)Ordered By: Amina Jaimes on 10-08-2022 Albumin [Mass/Vol] 4.1 g/dL 3.2-5.0 [facility] Serum or plasma albumin/glob ulin mass ratioOrdered By: Amina Jaimes on 10-08-2022 Albumin/Globulin [Mass ratio] 1.4 {ratio} 0.9-2.[address] [facility] Serum or plasma calcium reta urement (mass/volume)Ordered By: Amina Jaimes on 10-08-2022 Calcium [Mass/Vol] 8.6 mg/dL 8.5-10.1 [facility] Serum or plasma creatinine m easurement (mass/volume)Ordered By: Amina Jaimes on 10-08-2022 Creatinine [Mass/Vol] 1.43 mg/dL 0.70-1.30 [facility] Comment on above: The validity of the calculated GFR & GFRAA in patients over 70 years has not been determined. Clinical correlation is essential. Serum or plasma urea nitroge n measurement (mass/volume)Ordered By: Amina Jaimes on 10-08-2022 Urea nitrogen [Mass/Vol] 21 mg/dL 7-[address] [facility] Serum or plasma uric acid me asurement (mass/volume)Ordered By: Amina Jaimes on 10-08-2022 Urate [Mass/Vol] 8.5 mg/dL 3.5-7.[address] [facility] Comment on above: The drugs N-Acetylcy steine and Metamizole may falsely depress this assay. Thin prep Papanicolaou smear with manual screeningOrdered By: Amina Jaimes on 10-08-2022 Thin prep Papanicolaou smear with manual screening 20 U/L 15-[address] [facility] Thin prep Papanicolaou smear with manual screening 7 5-[address] [facility] CR Chest PA/LATon 07-13-2022 CR Chest PA/LAT Patient Name: ARTURO WHELAN Diagnostic Radiology ACCESSION EXAM DATE/TIME PROCEDURE ORDERING PROVIDER [id number] 07/13/2022 10:37 EDT CR Chest PA and LAT MD AZIZA, BERNARDA RAY CPT code 13013 Reason For Exam (CR Chest PA and [...] Transcribed Date and Time: 07/13/2022 5:15 Normal [facility] Absolute lymphocyte counton 12-22-2021 Lymphocytes Auto (Unsp spec) [#/Vol] 1.33 10*3/uL 0.83-4.[address] [facility] Work Phone: Basophil percentageon 2021 Basophils/100 WBC (Bld) 0.7 % 0-1 [facility] Work Phone: Bilirubin [Mass/Vol] 1.50 mg/dL 0.20-1.00 [facility] Work Phone: Comment on above: For patients on eltr ombopag therapy, use of Dimension [place] TBIL is not recommended. Chloride [Moles/Vol] 104 mmol/L 98-107 [facility] Work Phone: Cholesterol [Mass/Vol] 198 mg/dL <200 [facility] Work Phone: Comment on above: <200 mg/dL Desirable 200-240 mg/dL Borderline >240 mg/dL High Risk Eosinophils/100 WBC (Bld) 2.2 % 0-[address] [facility] Work Phone: Glucose [Mass/Vol] 122 mg/dL 74-106 [facility] Work Phone: Comment on above: Fasting Glucose resu lt from 100 to 125 mg/dL suggests IMPAIRED HOMEOSTASIS per A.D.A. criteria. Neutrophils (Bld) [#/Vol] 6.3 10*3/uL 2.0-7.[address] [facility] Work Phone: Neutrophils/100 WBC (Bld) 74.0 % 47-[address] [facility] Work Phone: Potassium [Moles/Vol] 4.6 mmol/L 3.5-5.1 [facility] Work Phone: Protein [Mass/Vol] 7.3 g/dL 6.4-8.2 [facility] Work Phone: Sodium [Moles/Vol] 138 mmol/L 136-145 [facility] Work Phone: Triglyceride [Mass/Vol] 185 mg/dL [facility] Work Phone: Comment on above: The drugs N-Acetylcy steine and Metamizole may falsely depress this assay.Serum Triglycerides Reference Interval Normal <150 mg/dL Borderline high 150 - 199 mg/dL High 200 - 499 mg/dL Very High > or = 500 mg/dL WBC (Bld) [#/Vol] 8.6 10*3/uL 4.4-11.0 [facility] Work Phone: Blood erythrocytes count (nu mber/volume)on 12-22-2021 RBC (Bld) [#/Vol] 5.68 10*6/uL 4.6-6.2 [facility] Work Phone: Blood hemoglobin measurement (mass/volume)on 12-22-2021 Hemoglobin (Bld) [Mass/Vol] 17.1 g/dL 13.0-16.[address] [facility] Work Phone: Blood lymphocytes/100 leukoc yteson 12-22-2021 Lymphocytes/100 WBC (Bld) 15.6 % 19-[address] [facility] Work Phone: Blood monocytes/100 leukocyt eson 12-22-2021 Monocytes/100 WBC (Bld) 7.3 % 0-10 [facility] Work Phone: Blood platelet mean volumeon 12-22-2021 Platelet mean volume (Bld) [Entitic vol] 11.5 fL 6.2-12.[address] [facility] Work Phone: Determination of erythrocyte mean corpuscular volume (MCV)on 12-22-2021 MCV (RBC) [Entitic vol] 88.7 fL 80-94 [facility] Work Phone: Hematocrit Auto (Bld) [Volum e fraction]on 12-22-2021 Hematocrit (Bld) [Volume fraction] 50.4 % 40-[address] [facility] Work Phone: Laboratory - Chemistry and C hemistry - challengeon 12-22-2021 ALP [Catalytic activity/Vol] 72 U/L 45-[address] [facility] Work Phone: ALT [Catalytic activity/Vol] 29 U/L 16-[address] [facility] Work Phone: CO2 [Moles/Vol] 30.0 mmol/L 21.0-32.[address] [facility] Work Phone: Globulin (S) [Mass/Vol] 3.0 g/dL 2.2-4.2 [facility] Work Phone: Urea nitrogen/Creatinine [Mass ratio] 9.1 mg/mg 10-[address] [facility] Work Phone: Laboratory - Hematology and Cell countson 12-22-2021 Erythrocyte distribution width (RBC) [Entitic vol] 45.9 fL 35.1-43.[address] [facility] Work Phone: Erythrocyte distribution width (RBC) [Ratio] 14.2 % 11.6-14.[address] [facility] Work Phone: Immature granulocytes/100 WBC (Bld) 0.200 % 0.0-0.[address] [facility] Work Phone: Comment on above: IG% - Immature Granu locytes (promyelocytes, myelocytes and metamyelocytes) > 1% indicates that a LEFT SHIFT is Present. MCH (RBC) [Entitic mass] 30.1 pg 27.0-32.[address] [facility] Work Phone: Nucleated RBC/100 WBC (Bld) [Ratio] 0 % 0-[address] [facility] Work Phone: MCHC Auto (RBC) [Mass/Vol]on 12-22-2021 MCHC (RBC) [Mass/Vol] 33.9 g/dL 32-36 [facility] Work Phone: No Panel Informationon 12-22 C-Reactive Protein High Sensitivity 1.80 mg/L [facility] Work Phone: Comment on above: Low Relative Risk of CVD <1.0 mg/L Average Relative Risk of CVD 1.0 - 3.0 mg/L High Relative Risk of CVD >3.0 mg/L Estimated GFR (MDRD) Amer 64 mL/min >[address] [facility] Work Phone: Comment on above: GFR Calc Estimated GFR (MDRD) Non-Af Amer 53 mL/min >[address] [facility] Work Phone: Comment on above: Non- GFR Calc Prostate Specific Antigen Screen 1.30 ng/mL 0.00-4.[address] [facility] Work Phone: Comment on above: This test was perfor med using the TPSA assay method for themohchi chemistry system. Values obtained with differentassay methods cannot be used interchangably.When changing PSA assays in the course of monitoring apatient, additional sequential testing should be carriedout to confirm baseline values. Thyroid Stimulating Hormone (TSH) 2.92 uIU/mL 0.358-3.[address] [facility] Work Phone: Platelets bldon 12-22-2021 Platelets (Bld) [#/Vol] 186 10*3/uL 150-[address] [facility] Work Phone: Serum or plasma albumin reta urement (mass/volume)on 12-22-2021 Albumin [Mass/Vol] 4.3 g/dL 3.2-5.0 [facility] Work Phone: Serum or plasma albumin/glob ulin mass ratioon 12-22-2021 Albumin/Globulin [Mass ratio] 1.4 {ratio} 0.9-2.[address] [facility] Work Phone: Serum or plasma calcium reta urement (mass/volume)on 12-22-2021 Calcium [Mass/Vol] 8.6 mg/dL 8.5-10.1 [facility] Work Phone: Serum or plasma cholesterol in HDL measurement (mass/volume)on 12-22-2021 Cholesterol in HDL [Mass/Vol] 32 mg/dL [facility] Work Phone: Comment on above: The drugs N-Acetylcy steine and Metamizole may falsely depress this assay. Reference Range HDL <40 mg/dL Low HDL Cholesterol HDL >or= 60 mg/dL High HDL Cholesterol Serum or plasma cholesterol in VLDL measurement (mass/volume)on 12-22-2021 Cholesterol in VLDL [Mass/Vol] 37 mg/dL 5-[address] [facility] Work Phone: Serum or plasma creatinine m easurement (mass/volume)on 12-22-2021 Creatinine [Mass/Vol] 1.43 mg/dL 0.70-1.30 [facility] Work Phone: Comment on above: The validity of the calculated GFR & GFRAA in patients over 70 years has not been determined. Clinical correlation is essential. Serum or plasma low density lipoprotein (LDL) cholesterol measurement (mass/volume)on 12-22-2021 Cholesterol in LDL [Mass/Vol] 129 mg/dL 0-[address] [facility] Work Phone: Serum or plasma urea nitroge n measurement (mass/volume)on 12-22-2021 Urea nitrogen [Mass/Vol] 13 mg/dL 7-[address] [facility] Work Phone: Serum or plasma uric acid me asurement (mass/volume)on 12-22-2021 Urate [Mass/Vol] 6.6 mg/dL 3.5-7.[address] [facility] Work Phone: Comment on above: The drugs N-Acetylcy steine and Metamizole may falsely depress this assay. Thin prep Papanicolaou smear with manual screeningon 12-22-2021 Thin prep Papanicolaou smear with manual screening 24 U/L 15-[address] [facility] Work Phone: Thin prep Papanicolaou smear with manual screening 4 5-[address] [facility] Work Phone: Absolute lymphocyte counton 09-04-2021 Lymphocytes Auto (Unsp spec) [#/Vol] 1.13 10*3/uL 0.83-4.[address] [facility] Work Phone: Basophil percentageon 2020 Eosinophils/100 WBC (Bld) 1.9 % 0-[address] [facility] Work Phone: Neutrophils (Bld) [#/Vol] 7.9 10*3/uL 2.0-7.[address] [facility] Work Phone: WBC (Bld) [#/Vol] 10.1 10*3/uL 4.4-11.0 [facility] Work Phone: Blood erythrocytes count (nu mber/volume)on 09-04-2021 RBC (Bld) [#/Vol] 5.58 10*6/uL 4.6-6.2 [facility] Work Phone: Blood hemoglobin measurement (mass/volume)on 09-04-2021 Hemoglobin (Bld) [Mass/Vol] 17.2 g/dL 13.0-16.[address] [facility] Work Phone: [phone] Blood lymphocytes/100 leukoc yteson 09-04-2021 Lymphocytes/100 WBC (Bld) 11.2 % 19-[address] [facility] Work Phone: Blood monocytes/100 leukocyt eson 09-04-2021 Monocytes/100 WBC (Bld) 7.6 % 0-10 [facility] Work Phone: Blood platelet mean volumeon 09-04-2021 Platelet mean volume (Bld) [Entitic vol] 11.3 fL 6.2-12.[address] [facility] Work Phone: Determination of erythrocyte mean corpuscular volume (MCV)on 09-04-2021 MCV (RBC) [Entitic vol] 90.9 fL 80-94 [facility] Work Phone: Hematocrit Auto (Bld) [Volum e fraction]on 09-04-2021 Hematocrit (Bld) [Volume fraction] 50.7 % 40-[address] [facility] Work Phone: Laboratory - Hematology and Cell countson 09-04-2021 Basophils/100 WBC (Unsp spec) 0.9 % 0-[address] [facility] Work Phone: Erythrocyte distribution width (RBC) [Entitic vol] 46.4 fL 35.1-43.[address] [facility] Work Phone: Erythrocyte distribution width (RBC) [Ratio] 13.7 % 11.6-14.[address] [facility] Work Phone: Immature granulocytes/100 WBC (Bld) 0.300 % 0.0-0.[address] [facility] Work Phone: Comment on above: IG% - Immature Granu locytes (promyelocytes, myelocytes and metamyelocytes) > 1% indicates that a LEFT SHIFT is Present. MCH (RBC) [Entitic mass] 30.8 pg 27.0-32.[address] [facility] Work Phone: [phone] Neutrophils/100 WBC (Bld) 78.1 % 47-[address] [facility] Work Phone: [phone] Nucleated RBC/100 WBC (Bld) [Ratio] 0 % 0-[address] [facility] Work Phone: MCHC Auto (RBC) [Mass/Vol]on 09-04-2021 MCHC (RBC) [Mass/Vol] 33.9 g/dL 32-36 [facility] Work Phone: No Panel Informationon 09-04 Thyroid Stimulating Hormone (TSH) 1.19 uIU/mL 0.358-3.[address] [facility] Work Phone: Platelets bldon 09-04-2021 Platelets (Bld) [#/Vol] 207 10*3/uL 150-[address] [facility] Work Phone: Serum or plasma uric acid me asurement (mass/volume)on 09-04-2021 Urate [Mass/Vol] 8.0 mg/dL 3.5-7.[address] [facility] Work Phone: Comment on above: The drugs N-Acetylcy steine and Metamizole may falsely depress this assay. CBC (INCLUDES DIFF/PLT)on Basophils (Bld) [#/Vol] 0.083 10*3/uL Normal 0-200 [facility] Comment on above: Performed By: #### 6 399, [id number] #### [facility] [place] [address] [employer] Consultant: Wero Conn MD Basophils/100 WBC (Bld) 1.0 % Normal [facility] Comment on above: Performed By: #### 6 399, 04773 #### [facility] [place] [address] [employer] Consultant: Wero Conn MD Eosinophils (Bld) [#/Vol] 0.216 10*3/uL Normal 15-500 [facility] Comment on above: Performed By: #### 6 399, 81525 #### [facility] [place] [address] [employer] Consultant: Wero Conn MD Eosinophils/100 WBC (Bld) 2.6 % Normal [facility] Comment on above: Performed By: #### 6 399, 88981 #### [facility] of [address], [address] [place] [address] [employer]ant: Wero Conn MD Erythrocyte distribution width (RBC) [Ratio] 14.4 % Normal 11.0-15.0 [facility] Comment on above: Performed By: #### 6 399, 28921 #### [facility] of [place] [address] [employer] Consultant: Wero Conn MD Hematocrit (Bld) [Volume fraction] 49.8 % Normal 38.5-50.0 [facility] Comment on above: Performed By: #### 6 399, 80404 #### [facility] of [place] [address] [employer] Consultant: Wero Conn MD Hemoglobin (Bld) [Mass/Vol] 17.8 g/dL High 13.2-17.1 [facility] Comment on above: Performed By: #### 6 399, 62385 #### [facility] of [address], [address] [place] [address] [employer]ant: Wero Conn MD Lymphocytes (Bld) [#/Vol] 1.486 10*3/uL Normal 850-3900 [facility] Comment on above: Performed By: #### 6 399, 86498 #### [facility] of [place] [address] [employer] Consultant: Wero Conn MD Lymphocytes/100 WBC (Bld) 17.9 % Normal [facility] Comment on above: Performed By: #### 6 399, 43055 #### [facility] of [address], [address] [place] [address] [employer]ant: Wero Conn MD MCH (RBC) [Entitic mass] 31.6 pg Normal 27.0-33.0 [facility] Comment on above: Performed By: #### 6 399, 89837 #### [facility] of [place] [address] [employer] Consultant: Wero Conn MD MCHC (RBC) [Mass/Vol] 35.7 g/dL Normal 32.0-36.[address] [facility] Comment on above: Performed By: #### 6 399, 29823 #### [facility] of [place] [address] [employer] Consultant: Wero Conn MD MCV (RBC) [Entitic vol] 88.5 fL Normal 80.0-100.0 [facility] Comment on above: Performed By: #### 6 399, 80327 #### [facility] of [place] [address] [employer] Consultant: Wero Conn MD Monocytes (Bld) [#/Vol] 0.855 10*3/uL Normal 200-950 [facility] Comment on above: Performed By: #### 6 399, 38885 #### [facility] [place] [address] [employer] Consultant: Wero Conn MD Monocytes/100 WBC (Bld) 10.3 % Normal [facility] Comment on above: Performed By: #### 6 399, 87482 #### [facility] [place] [address] [employer] Consultant: Wero Conn MD Neutrophils (Bld) [#/Vol] 5.661 10*3/uL Normal 7329-2911 [facility] Comment on above: Performed By: #### 6 399, 69670 #### [facility] [place] [address] [employer] Consultant: Wero Conn MD Neutrophils/100 WBC (Bld) 68.2 % Normal [facility] Comment on above: Performed By: #### 6 399, 42179 #### [facility] [place] [address] [employer] Consultant: Wero Conn MD Platelet mean volume (Bld) [Entitic vol] 11.4 fL Normal 7.5-12.5 [facility] Comment on above: Performed By: #### 6 399, 80098 #### [facility] of [place] [address] [employer] Consultant: Wero Conn MD Platelets (Bld) [#/Vol] 198 10*3/uL Normal 140-400 [facility] Comment on above: Performed By: #### 6 399, 56728 #### [facility] of [place] [address] [employer] Consultant: Wero Conn MD RBC (Bld) [#/Vol] 5.63 10*6/uL Normal 4.20-5.80 [facility] Comment on above: Performed By: #### 6 399, 64974 #### [facility] of [place] [address] [employer] Consultant: Wero Conn MD WBC (Bld) [#/Vol] 8.3 10*3/uL Normal 3.8-10.8 [facility] Comment on above: Performed By: #### 6 399, 46624 #### [facility] of [place] [address] [employer] Consultant: Wero Conn MD [facility] METABOLIC [facility] 01-15-2021 Albumin [Mass/Vol] 4.9 g/dL Normal 3.6-5.1 [facility] Comment on above: Order Comment: FASTI NG:NO FASTING: NO Performed By: #### 6 399, 46137 #### [facility] of [place] [address] [employer] Consultant: Wero Conn MD Albumin/Globulin [Mass ratio] 2.7 {ratio} High 1.0-2.5 [facility] Comment on above: Order Comment: FASTI NG:NO FASTING: NO Performed By: #### 6 399, 84865 #### [facility] of [place] [address] [employer] Consultant: Wero Conn MD ALP [Catalytic activity/Vol] 61 U/L Normal 35-144 [facility] Comment on above: Order Comment: FASTI NG:NO FASTING: NO Performed By: #### 6 399, 96103 #### [facility] [place] [address] [employer] Consultant: Wero Conn MD ALT [Catalytic activity/Vol] 26 U/L Normal 9-46 [facility] Comment on above: Order Comment: FASTI NG:NO FASTING: NO Performed By: #### 6 399, 00737 #### [facility] [place] [address] [employer] Consultant: Wero Conn MD AST [Catalytic activity/Vol] 23 U/L Normal 10-35 [facility] Comment on above: Order Comment: FASTI NG:NO FASTING: NO Performed By: #### 6 399, 43657 #### [facility] [place] [address] [employer] Consultant: Wero Conn MD Bilirubin [Mass/Vol] 2.0 mg/dL High 0.2-1.2 [facility] Comment on above: Order Comment: FASTI NG:NO FASTING: NO Performed By: #### 6 399, 41078 #### [facility] [place] [address] [employer] Consultant: Wero Conn MD Calcium [Mass/Vol] 9.1 mg/dL Normal 8.6-10.3 [facility] Comment on above: Order Comment: FASTI NG:NO FASTING: NO Performed By: #### 6 399, 51263 #### [facility] [place] [address] [employer]ant: Wero Conn MD Chloride [Moles/Vol] 102 mmol/L Normal 98-110 [facility] Comment on above: Order Comment: FASTI NG:NO FASTING: NO Performed By: #### 6 399, 91703 #### [facility] [place] [address] [employer] Consultant: Wero Conn MD CO2 [Moles/Vol] 30 mmol/L Normal 20-32 [facility] Comment on above: Order Comment: FASTI NG:NO FASTING: NO Performed By: #### 6 399, 63437 #### [facility] [address], [address] [place] [address] [employer]ant: Wero Conn MD Creatinine [Mass/Vol] 1.30 mg/dL High 0.70-1.[address] [facility] Comment on above: Order Comment: FASTI NG:NO FASTING: NO Result Comment: For patients >49 years of age, the reference limit for Creatinine is approximately 13% higher for people identified as -[place]. Performed By: #### 6 399, 93454 #### [facility] [address], [address] [place] [address] [employer]ant: Wero Conn MD eGFR NON-AFR. CENTRAL AFRICAN 58 mL/min/1.73m2 Low > OR = 60 [facility] Comment on above: Order Comment: FASTI NG:NO FASTING: NO Performed By: #### 6 399, 38749 #### [facility] [address], [address] [place] [address] [employer]ant: Wero Conn MD GFR/1.73 sq M.predicted among blacks MDRD (S/P/Bld) [Vol rate/Area] 67 mL/min/{1.73_m2} Normal > OR = 60 [facility] Comment on above: Order Comment: FASTI NG:NO FASTING: NO Performed By: #### 6 399, 57883 #### [facility] [address], [address] [place] [address] [employer]ant: Wero Conn MD Globulin (S) [Mass/Vol] 1.8 g/dL Low 1.9-3.7 [facility] Comment on above: Order Comment: FASTI NG:NO FASTING: NO Performed By: #### 6 399, 24159 #### [facility] [address], [address] [place] [address] [employer]ant: Wero Conn MD Glucose [Mass/Vol] 74 mg/dL Normal 65-139 [facility] Comment on above: Order Comment: FASTI NG:NO FASTING: NO Result Comment: Non-fasting reference interval Performed By: #### 6 399, 80246 #### [facility] [place] [address] [employer] Consultant: Wero Conn MD Potassium [Moles/Vol] 4.2 mmol/L Normal 3.5-5.3 [facility] Comment on above: Order Comment: FASTI NG:NO FASTING: NO Performed By: #### 6 399, 86343 #### [facility] [place] [address] [employer] Consultant: Wero Conn MD Protein [Mass/Vol] 6.7 g/dL Normal 6.1-8.1 [facility] Comment on above: Order Comment: FASTI NG:NO FASTING: NO Performed By: #### 6 399, 99536 #### [facility] [place] [address] [employer] Consultant: Wero Conn MD Sodium [Moles/Vol] 140 mmol/L Normal 135-146 [facility] Comment on above: Order Comment: FASTI NG:NO FASTING: NO Performed By: #### 6 399, 95928 #### [facility] [place] [address] [employer] Consultant: Wero Conn MD Urea nitrogen [Mass/Vol] 17 mg/dL Normal 7-25 [facility] Comment on above: Order Comment: FASTI NG:NO FASTING: NO Performed By: #### 6 399, 30311 #### [facility] [place] [address] [employer] Consultant: Wero Conn MD Urea nitrogen/Creatinine [Mass ratio] 13 mg/mg Normal 6-22 [facility] Comment on above: Order Comment: FASTI NG:NO FASTING: NO Performed By: #### 6 399, 75335 #### [facility] [place] [address] [employer] Consultant: Wero Conn MD TSHon 01-15-2021 TSH Qn 2.91 m[IU]/L Normal 0.40-4.50 [facility] Comment on above: Performed By: #### 6 667, 86738 #### [facility] [address], [address] [place] [address] [employer]ant: Wero Conn MD NURSING PROGon 09-14-2018 Protein mass conc HNO ID: [id number]: ISABELLA Bates Rnervice: NursingAuthor Type: Registered NurseType: Nursing Progress NoteFiled: 09/14/2018 10:52 AMNote Text:[id number] Received from pacu No c/o pain Light diet to [id number] Iv removed Discharge instructions reviewed with pt and [id number] Discharged by wheelchair [facility] Protein mass conc HNO ID: [id number]: ISABELLA Hood Rnervice: (none)Author Type: Registered NurseType: Nursing Progress NoteFiled: 09/14/2018 8:11 AMNote Text:PRE OP LEARNING ASSESSMENTPROCEDURE/ROSANNA ERLINDA:EGDREADINESS TO LEARNCOGNITIVE ABILITY: Alert and orientedMOTIVATION TO LEARN: InterestedFAMILY SUPPORT: High - Very involved in pt carePATIENT LEARNS BEST BY: Individual InstructionVerbal InstructionFACTORS AFFECTING LEARNING: NonePHYSICAL LIMITATIONS AFFECTING LEARNING: NoneElectronically Signed By: Lena Barber RN, BSN [facility] PT EDon 09-14-2018 PT ED HNO ID: [id number]: ISABELLA Bates Rnervice: NursingAuthor Type: Registered NurseType: Patient EducationFiled: 09/14/2018 10:51 AMNote Text:POST OP LEARNING RESPONSEINSTRUCTION PROVIDED TO: Patient and Family memberMETHOD OF INSTRUCTION: Verbal instructionPATIENT / FAMILY RESPONSE: Information received as demonstrated byinterest and questionsFOLLOW-UP PLAN: Patient instructed to call with any further issuesSUPPLEMENTAL MATERIAL: Post op discharge instructionsREFERRAL (RECOMMENDATION): NoneElectronically Signed By: Francie Taylor RN In Department: [facility] ENDOSCOPY [facility] SURGICAL PATHOLOGYon 018 SURGICAL PATHOLOGY [facility]: [id number] Physician: Jim Elizondo M.D. FINAL DIAGNOSIS1. Stomach, [...] submitted in one cassette.Gross examination performed at [facility], [address] [place], [place] [id number] 09/14/2018 5:44:35 PMPatient ID #: [id number] of Report: 09/15/2018Date of Procedure: 09/14/2018Date of Receipt: 09/14/2018Submitted by: Jim Elizondo M.D.Location: MEENDDiagnostic interpretation performed at [address] [address] [facility] Comment on above: Performed By: #### P ATHS ####[facility] [address] [place], [place] [phone] STRESS TEST EXERCISEon 06-08 Protein mass conc NAME : LILIA SNOWHPID : [id number] : 1955 Gender : MaleRace : ORD : [id number] Procedure Date : Jun 08 2018 12:35:54Edit Date : Jun 09 2018 08:49:06 Protocol Name : ORTEGA Time In Exercise Phase : 00:09:00 Max. Systolic BP : 196 mmHgMax Diastolic BP : 94 mmHgMax Heart Rate : 146 BPMMax Predicted Heart Rate : 159 BPMRecovery ECG Response (OLD) : Reason For Termination : Target Heart Rate Achieved Test Reason : CAD Risk Location :[facility] Overread By : EHSAN FARLEY M.D.Edited By : Leah Pereiraferred By : FABIAN MANSFIELDAcdusty by : VERNA OLIVER [facility] CNPAshlie 06-07-2018 CNPN Telephone ([facility]) SONY ARTURO GONZALES ([id number]) 1955 MDate Time Provider Department06/07/18 MARY DHILLON (RN) [facility] During your visit today, we recorded the following information about you:Mary Dihllon RN, RN 06/07/2018 1:49 PM SignedSpoke with patient regarding reminder for stress test tomorrow and giveninstructionsAllerg ies As of Date: 06/07/2018(No Known Allergies)Date Reviewed: 05/27/2018Reviewed by: Fabian Mansfield - Fully AssessedReason for Visit: Reminder Call [[id number]]Prescriptions as of 06/07/2018 Sig: LEVOTHYROXINE 88 MCG [...] FOR* Status:Closed by MARY DHILLON on 06/07/18 [facility] MRI STERNUM WO/W IVCONon MRI STERNUM WO/W IVCON * * *Final Report * * *DATE OF EXAM: Nov 30 2017 [...] cysts.IMPRESSION:Minima l degenerative changes of the sternoclavicular joints.Stencil Inspector : PSCB Transcribe Date/Time: Dec 01 2017 9:31ADictated by : MIKE PATRICIO MDThis examination was interpreted and the report reviewed and electronically signed by: MIKE PATRICIO MD on Dec 01 2017 10:09AM [id number] [facility] CT CHEST W IVCONon 8 CT CHEST W IVCON * * *Final Report* * *DATE OF EXAM: Nov 06 2017 7:56AM [facility] 0539 - CT CHEST W IVCON / REASON: multiple diagnoses * * * * Physician Interpretation * * * * EXAMINATION: CHEST CT WITH CONTRAST: [id number]: 62-year-old male with requisition stating solitary pulmonary nodule. Shortness of breath. Chest pain. Sternal pain.Technique: Spiral CT acquisition of the chest from the thoracic inlet to the upper abdomen following IV contrast.M: [id number]: 50 mL Omnipaque 300 IVCT Dose-Length Product: 490 mGy*cmCT Dose Reduction Employed: mAs-kVp adjusted based on patient size-ageCOMPARISON:Two view chest x-ray: 08-30-16CT chest without IV contrast: 04-17-16, 52-07-49BKYAFXE:Limitat ions: None.Lines, tubes, and devices: None.Lung parenchyma [...] from 2013, consistent with benign finding.Transcriptionis t: JULISSA Transcribe Date/Time: Nov 07 2017 12:28PDictated by : HALI NAVA MDThishira examination was interpreted and the report reviewed and electronically signed by: HALI NAVA MD on Nov 07 2017 12:46PM [id number] CN [facility] SURGICAL PATHOLOGYon 017 SURGICAL PATHOLOGY Specimen #: [id number] Physician: REYNALDO VAUGHN MD FINAL DIAGNOSISA. Skin,right [...] sectionedto reveal a white pasty cut surface. Languages And Literature Instructor sections are submittedin one cassette.Gross examination performed at [facility], [address] [place] [address] [id number] 08/10/2017 2:14:35 AMPatient ID #: [id number] of Report: 08/10/2017Date of Procedure: 08/09/2017Date of Receipt: 08/09/2017Submitted by: REYNALDO VAUGHN MDLocation: Diagnostic interpretation performed at [facility], [address] [place] [address]. Normal [facility] Comment on above: Performed By: #### S ####See report for performing lab information. Vital Signs Date Time Vital Sign Value Performing Clinician Facility 06-02-2025 22:45-0400 Body temperature 98.4 [degF] Aminajmaar BoldenJaimes ANCILLARY SPECIALIST-C Work Phone: [facility] 06-02-2025 22:45-0400 Diastolic blood pressure 95 mm[Hg] Aminajamar BoldenJaimes ANCILLARY SPECIALIST-C Work Phone: [facility] 06-02-2025 22:45-0400 Heart rate 72 /min Aminajamar BoldenJaimes ANCILLARY SPECIALIST-C Work Phone: [facility] 06-02-2025 22:45-0400 Respiratory rate 13 /min Aminajamar BoldenJaimes ANCILLARY SPECIALIST-C Work Phone: [facility] 06-02-2025 22:45-0400 SaO2% (BldA) [Mass fraction] 97 % Aminajamar BoldenJaimes ANCILLARY SPECIALIST-C Work Phone: [facility] 06-02-2025 22:45-0400 Systolic blood pressure 150 mm[Hg] Aminajamar BoldenJaimes ANCILLARY SPECIALIST-C Work Phone: [facility] 06-02-2025 17:59-0400 Body height 190.5 cm Aminajamar BoldenJaimes ANCILLARY SPECIALIST-C Work Phone: [facility] 06-02-2025 17:59-0400 Body mass index (BMI) [Ratio] 30.2 kg/m2 Aminajamar BoldenJaimes ANCILLARY SPECIALIST-C Work Phone: [facility] 06-02-2025 17:59-0400 Body weight 109.7 kg Aminajamar BoldenJaimes ANCILLARY SPECIALIST-C Work Phone: [facility] 05-25-2025 09:31-0400 Body height 191.77 cm Amina Jaimes ANCILLARY SPECIALIST-C Work Phone: [facility] 05-25-2025 09:31-0400 Body mass index (BMI) [Ratio] 30.1 kg/m2 Amina Jaimes ANCILLARY SPECIALIST-C Work Phone: [facility] 05-25-2025 09:31-0400 Body weight 110.67 kg Aminajamar BoldenJaimes ANCILLARY SPECIALIST-C Work Phone: [facility] 01-29-2025 17:05-0400 Body mass index (BMI) [Ratio] 30.8 kg/m2 Amina Jaimes ANCILLARY SPECIALIST-C Work Phone: [facility] 01-29-2025 17:05-0400 Body temperature 98.1 [degF] Amina Jaimes ANCILLARY SPECIALIST-C Work Phone: [facility] 01-29-2025 17:05-0400 Body weight 113.39 kg Amina Jaimes ANCILLARY SPECIALIST-C Work Phone: [facility] 01-29-2025 17:05-0400 Diastolic blood pressure 80 mm[Hg] Amina Jaimes ANCILLARY SPECIALIST-C Work Phone: [facility] 01-29-2025 17:05-0400 Heart rate 70 /min Amina Jaimes ANCILLARY SPECIALIST-C Work Phone: [facility] 01-29-2025 17:05-0400 Respiratory rate 18 /min Amina Jaimes ANCILLARY SPECIALIST-C Work Phone: [facility] 01-29-2025 17:05-0400 SaO2% (BldA) [Mass fraction] 98 % Amina Jaimes ANCILLARY SPECIALIST-C Work Phone: [facility] 01-29-2025 17:05-0400 Systolic blood pressure 128 mm[Hg] Amina Jaimes ANCILLARY SPECIALIST-C Work Phone: [facility] 01-07-2024 16:27-0400 Body height 190.[address] [facility] 01-07-2024 16:27-0400 Body mass index (BMI) [Ratio] 32 kg/m2 [facility] 01-07-2024 16:27-0400 Body temperature 98.1 [degF] [facility] 01-07-2024 16:27-0400 Body weight 116.[address] [facility] 01-07-2024 16:27-0400 Diastolic blood pressure 80 mm[Hg] [facility] 01-07-2024 16:27-0400 Heart rate 64 /min [facility] 01-07-2024 16:27-0400 Respiratory rate 18 /min [facility] 01-07-2024 16:27-0400 SaO2% (BldA) [Mass fraction] 95 % [facility] 01-07-2024 16:27-0400 Systolic blood pressure 138 mm[Hg] [facility] 11-23-2023 17:59-0500 Body mass index (BMI) [Ratio] 31.8 kg/m2 [facility] 11-23-2023 17:59-0500 Body temperature 98.1 [degF] [facility] 11-23-2023 17:59-0500 Body weight 115.[address] [facility] 11-23-2023 17:59-0500 Diastolic blood pressure 88 mm[Hg] [facility] 11-23-2023 17:59-0500 Heart rate 62 /min [facility] 11-23-2023 17:59-0500 Respiratory rate 18 /min [facility] 11-23-2023 17:59-0500 SaO2% (BldA) [Mass fraction] 94 % [facility] 11-23-2023 17:59-0500 Systolic blood pressure 134 mm[Hg] [facility] 01-25-2023 17:37-0400 Body height 190.[address] [facility] 12-24-2022 17:52-0400 Body mass index (BMI) [Ratio] 32.5 kg/m2 [facility] 12-24-2022 17:52-0400 Body temperature 98.1 [degF] [facility] 12-24-2022 17:52-0400 Body weight 117.[address] [facility] 12-24-2022 17:52-0400 Diastolic blood pressure 90 mm[Hg] [facility] 12-24-2022 17:52-0400 Heart rate 105 /min [facility] 12-24-2022 17:52-0400 Respiratory rate 18 /min [facility] 12-24-2022 17:52-0400 SaO2% (BldA) [Mass fraction] 96 % [facility] 12-24-2022 17:52-0400 Systolic blood pressure 158 mm[Hg] [facility] 10-08-2022 18:08-0500 Body height 190.[address] [facility] 10-08-2022 18:08-0500 Body mass index (BMI) [Ratio] 31.5 kg/m2 [facility] 10-08-2022 18:08-0500 Body temperature 98.2 [degF] [facility] 10-08-2022 18:08-0500 Body weight 114.[address] [facility] 10-08-2022 18:08-0500 Diastolic blood pressure 90 mm[Hg] [facility] 10-08-2022 18:08-0500 Heart rate 68 /min [facility] 10-08-2022 18:08-0500 Respiratory rate 18 /min [facility] 10-08-2022 18:08-0500 SaO2% (BldA) [Mass fraction] 95 % [facility] 10-08-2022 18:08-0500 Systolic blood pressure 150 mm[Hg] [facility] 07-22-2022 13:56-0400 Body mass index (BMI) [Ratio] 30.31 kg/m2 Bernarda Moses MD Work Phone: [facility] 07-22-2022 13:56-0400 Body temperature 97.59 [degF] Bernarda Moses MD Work Phone: [facility] 07-22-2022 13:56-0400 Body weight 112.95 kg Bernarda Moses MD Work Phone: [facility] 07-22-2022 13:56-0400 Diastolic blood pressure 89 mm[Hg] Bernarda Moses MD Work Phone: [facility] 07-22-2022 13:56-0400 Heart rate 76 /min Bernarda Moses MD Work Phone: [facility] 07-22-2022 13:56-0400 Respiratory rate 16 /min Bernarda Moses MD Work Phone: [facility] 07-22-2022 13:56-0400 Systolic blood pressure 139 mm[Hg] Bernarda Moses MD Work Phone: [facility] 06-24-2022 11:06-0400 Body mass index (BMI) [Ratio] 30.19 kg/m2 Bernarda Moses MD Work Phone: [facility] 06-24-2022 11:06-0400 Body temperature 97.3 [degF] [facility] 06-24-2022 11:06-0400 Body weight 112.49 kg [facility] Moses [facility] 06-24-2022 11:06-0400 Diastolic blood pressure 95 mm[Hg] Bernarda Moses MD Work Phone: [facility] 06-24-2022 11:06-0400 Heart rate 92 /min [facility] Moses [facility] 06-24-2022 11:06-0400 Respiratory rate 18 /min Bernarda Moses MD Work Phone: [facility] 06-24-2022 11:06-0400 Systolic blood pressure 129 mm[Hg] Bernarda Moses MD Work Phone: [facility] 12-22-2021 16:12-0400 Body height 190.[address] [facility] Work Phone: 12-22-2021 16:12-0400 Body mass index (BMI) [Ratio] 32.2 kg/m2 [facility] Work Phone: 12-22-2021 16:12-0400 Body temperature 97.9 [degF] [facility] Work Phone: 12-22-2021 16:12-0400 Body weight 117.[address] [facility] Work Phone: 12-22-2021 16:12-0400 Diastolic blood pressure 94 mm[Hg] [facility] Work Phone: 12-22-2021 16:12-0400 Heart rate 79 /min [facility] Work Phone: 12-22-2021 16:12-0400 Respiratory rate 18 /min [facility] Work Phone: 12-22-2021 16:12-0400 SaO2% (BldA) [Mass fraction] 96 % [facility] Work Phone: 12-22-2021 16:12-0400 Systolic blood pressure 138 mm[Hg] [facility] Work Phone: 09-04-2021 15:08-0500 Body mass index (BMI) [Ratio] 31.7 kg/m2 [facility] Work Phone: 09-04-2021 15:08-0500 Body temperature 98.2 [degF] [facility] Work Phone: 09-04-2021 15:08-0500 Body weight 115.[address] [facility] Work Phone: 09-04-2021 15:08-0500 Diastolic blood pressure 70 mm[Hg] [facility] Work Phone: 09-04-2021 15:08-0500 Heart rate 89 /min [facility] Work Phone: 09-04-2021 15:08-0500 Respiratory rate 18 /min [facility] Work Phone: 09-04-2021 15:08-0500 SaO2% (BldA) [Mass fraction] 95 % [facility] Work Phone: 09-04-2021 15:08-0500 Systolic blood pressure 120 mm[Hg] [facility] Work Phone: 09-08-2018 14:00-0500 Body weight Measured [facility] En[facility]ters Encounter Date Encounter Type Care Provider Facility Start: 06-02-2025 Evaluation and management of inpatient Dr. dEith Watts MD -[facility] Work Phone: Start: 06-02-2025 observation encounter Amina cullen ANCILLARY SPECIALIST-C Work Phone: -[facility] Start: 06-02-2025 Non-patient / Non-visit Dr. Edith Watts MD -[facility] Work Phone: Start: 05-25-2025 End: 05-25-[address] Yobani Garcia MD -[facility] Start: 05-25-2025 End: 05-25-2025 ambulatory Amina Jaimes ANCILLARY SPECIALIST-C Work Phone: -[facility] Start: 02-05-2025 ambulatory AMINA JAIMES [facility] ity:[facility] Start: 02-05-2025 End: 02-05-2025 Subsequent hospital visit by physician [facility] Comment on above: Low back pain, unspe cified [M54.50] Start: 07-26-2024 End: 07-26-2024 ambulatory Amina Jaimes ANCILLARY SPECIALIST Facility:[facility] Start: 07-14-2024 End: 07-14-2024 ambulatory WILBERTO BLAKE MD Facility:[facility] Start: 05-14-2024 End: 05-15-2024 ambulatory OSKAR GALVAN Facility:[id number] Start: 01-13-2024 End: 01-13-[address] [facility] Work Phone: Start: 01-13-2024 End: 01-13-2024 Patient encounter procedure [facility]-Cat Scan, [facility] Work Phone: Start: 11-25-2023 Telephone encounter Bernarda Moses MD Other Phone: [facility] Comment on above: Left Message To Call Back Start: 01-25-2023 End: 01-25-[address] [facility] Work Phone: Start: 01-25-2023 End: 01-25-2023 Patient encounter procedure [facility]-Laboratory, Specimen Start: 10-08-2022 End: 10-08-[address] [facility] Work Phone: Start: 10-08-2022 End: 10-08-2022 Patient encounter procedure [facility], Specimen Start: 07-22-2022 End: 07-22-2022 Office outpatient visit 25 minutes Bernarda Moses MD Work Phone: [facility] Comment on above: Chest pain, exertion al (Primary Dx); VERDUZCO (dyspnea on exertion); Stage 3a chronic kidney disease (HCC); Body mass index (BMI) 30.0-30.9, adult Start: 07-13-2022 Telephone encounter Bernarda Moses MD Work Phone: [facility] Comment on above: Medical Record Revie w Start: 07-13-2022 ambulatory Bernarda Moses [facility] Start: 06-29-2022 Telephone encounter Bernarda Moses MD Work Phone: [facility] Start: 06-24-2022 End: 06-24-2022 Patient encounter procedure Bernarda Moses MD Work Phone: [facility] Comment on above: Encounter for long-t erm (current) use of medications (Primary Dx); Hypercholesteremia; Benign prostatic hyperplasia, unspecified whether lower urinary tract symptoms present; Idiopathic gout, unspecified chronicity, unspecified site; Hypothyroidism due to acquired atrophy of thyroid; Dyspnea, unspecified type; Medicare annual wellness visit, subsequent; Body mass index (BMI) 30.0-30.9, adult Start: 12-22-2021 End: 12-22-2021 Patient encounter procedure [facility], Specimen Start: 09-04-2021 End: 09-04-2021 Patient encounter procedure [facility], Specimen Start: 09-14-2018 End: 09-14-2018 Patient encounter procedure JIM ELIZONDO [facility] Start: 06-08-2018 Patient encounter procedure FABIAN [facility] Start: 11-30-2017 Patient encounter procedure [facility] Start: 11-06-2017 Patient encounter procedure [facility] Procedures Date Procedure Procedure Detail Performing Clinician Start: 06-02-2025 CT angiography of he ad and neck Amina Jaimes ANCILLARY SPECIALIST-C Work Phone: Start: 06-02-2025 Plain chest X-ray Amina Jaimes ANCILLARY SPECIALIST-C Work Phone: Start: 06-02-2025 CT of head without contrast Amina Jaimes ANCILLARY SPECIALIST-C Work Phone: Start: 06-02-2025 Estimated creatinine clearance Amina Jaimes ANCILLARY SPECIALIST-C Work Phone: Start: 06-02-2025 Serum inorganic phos phate measurement Amina Jaimes ANCILLARY SPECIALIST-C Work Phone: Start: 05-25-2025 X-ray of ankle, thre e or more views Amina Jaimes ANCILLARY SPECIALIST-C Work Phone: Start: 01-13-2024 CT of chest without contrast Start: 06-24-2022 Lipid 1996 panel - S [facility] or [facility] Start: 09-18-2020 Colonoscopy Bernarda Moses MD Work Phone: Start: 09-10-2020 Colonoscopy [facility] Plan of Treatment Date Care Activity Detail Author Start: 2031 RSV Vaccine (1 - 1-d ose 75+ series) RSV Vaccine (1 - 1-dose 75+ series) [facility] Start: 08-05-2028 [facility]id [facility] Start: 06-24-2027 Lipid panel [facility] Start: 06-24-2027 Prostate specific antigen measurement Prostate Cancer Screening Discussion [facility] Start: 09-08-2026 Lipid panel Cholesterol [facility] Start: 01-30-2026 Tetanus vaccination Tetanus (T d or Tdap) [facility] Start: 01-30-2026 Urine microalbumin profile DTaP,Tdap,Td Vaccine (2 - Td or Tdap) [facility] Start: 09-18-2025 Screening for malign ant neoplasm of colon [facility] Start: 06-24-2025 Diabetes Screening Diabetes Screenin g [facility] Start: 06-02-2025 Hospital admission, emergency, from emergency room, medical nature [facility] Start: 06-02-2025 Verification routine [facility] Start: 06-02-2025 Admission procedure [facility] Start: 06-02-2025 [facility] Start: 05-28-2025 Influenza vaccination Influenz a Vaccine (Season Ended) [facility] Start: 05-25-2025 X-ray of ankle, thre e or more views Ankle min [address] [facility] Start: 05-25-2025 XR Ankle GE 3 Views [facility] Start: 09-27-2024 Advance Directive Discussion Advance Directive Discussion [facility] Start: 05-28-2024 Covid-19 Vaccine ( season) Covid-19 Vaccine ( season) [facility] Start: 06-24-2023 Prostate specific antigen measurement Prostate Cancer Screening (shared decision making) [facility] Start: 06-24-2023 Thyroid stimulating hormone measurement TSH [facility] Start: 05-28-2023 Annual Wellness Visi t (G0439) Annual Wellness Visit (G0439) [facility] Start: 05-28-2023 COVID-19 Vaccine ( season) COVID-19 Vaccine ( season) [facility] Start: 05-28-2023 Influenza vaccination Influenza Vacc ine (#1) [facility] Start: 06-27-2022 Influenza vaccination Influenza Vacc ine (#1) [facility] Start: 11-08-2021 COVID-19 Vaccine (3 - Booster for Sally series) COVID-19 Vaccine (3 - Booster for Sally series) [facility] Start: 09-10-2021 Screening for malign ant neoplasm of colon [facility] Start: 2021 [facility]neumococcal [facility] Start: 11-30-2020 Thyroid stimulating hormone measurement TSH [facility] Start: 2016 Hepatitis B (HBV) Vaccine (optional start 60+ years) Hepatitis B (HBV) Vaccine (optional start 60+ years) [facility] Start: 2016 RSV vaccine (optiona l 60+ years) RSV vaccine (optional 60+ years) [facility] Start: 2006 Measurement of occul t blood in single stool specimen FIT [facility] Start: 2006 Pneumococcal Vaccine : 50+ (1 of 1 - PCV) Pneumococcal Vaccine: 50+ (1 of 1 - PCV) [facility] Start: 2006 Shingles (RZV) Vacci ne (1 of 2) Shingles (RZV) Vaccine (1 of 2) [facility] Start: 2006 Shingrix Vaccine (1 of 2) Shingrix Vaccine (1 of 2) [facility] Start: 2001 Screening for malign ant neoplasm of colon [facility] Start: 1975 Hepatitis A (HAV) Vaccine (optional start 19+ years) Hepatitis A (HAV) Vaccine (optional start 19+ years) [facility] Start: 1974 Anxiety Screening Anxiety Screening [facility] Start: 1974 Depression Screening Depression Scre ening [facility] Assay of free thyroxine [facility] Comment on above: Ordered: 06/24/2022 Assay of thyroid stimulating hormone tsh [facility] Comment on above: Ordered: 06/24/2022 Basic metabolic 2000 panel - Serum or Plasma [facility] Comment on above: Ordered: 06/24/2022 Hepatic function panel [facility] Comment on above: Ordered: 06/24/2022 Lipid 1996 panel - Serum or Plasma [facility] Comment on above: Ordered: 06/24/2022 Prostate specific Ag panel - Serum or Plasma [facility] Work Phone: Comment on above: Ordered: 06/24/2022 Troponin T.cardiac [Mass/volume] in Serum or Plasma by High sensitivity method [facility] Immunizations Immunization Date Immunization Notes Care Provider Fa [facility] 09-13-2021 Moderna Monovalent (12+ yrs) COVID-19 vaccine, mRNA, spike protein, LNP, PF, 100 mcg/0.5 mL (UCJ=203) Bernarda Moses MD Other Phone: [facility] Work Phone: 02-12-2021 Sally SARS-COV-2 (COVID-19) vaccine, vector non-replicating, recombinant spike protein-Ad26, preservative free, 0.5 mL (QED=424) Bernarda Moses MD Work Phone: [facility] 01-31-2016 tetanus toxoid, reduced diphtheria toxoid, and acellular pertussis vaccine, adsorbed Bernarda Moses MD Work Phone: [facility] Work Phone: Payers Date Payer Category Payer Medicare (Managed Care) [facility] OPT CARE HMO [id number] 2024 Self-pay [id number] 2024 Unknown [id number] 2021 Unknown SP/UNINSURED PEN DING FINANCIAL PROGRAM EVALUATION 2021-Present Other [id number] 2021 Medicare [facility] MEDICARE [facility] MEDICARE COMPLETE [id number] 2021-Present [phone] [address] [address] [place] [address] Medicare HMO [id number] 2008 Private Health Insurance 1955 Unknown [id number] 1955 Unknown [id number] 1955 Unknown [id number] Private Health Insurance 3 [id number] Unknown [id number] Unknown [id number] Unknown [id number] Unknown [id number] Unknown [id number] Unknown [id number] Social History Date Type Detail Facility Start: 04-23-2021 End: 03-08-2023 Tobacco smoking status MTIS Unknown if ever smoked [facility] Start: 11-10-2020 Spouse/ Signif icant Other [facility] Start: 1955 Sex Assigned At Male [facility] Start: 08-30-2019 End: 06-02-2025 Tobacco smoking status NHIS Never smoked tobacco [facility] Start: 10-27-2017 End: 08-30-2019 Tobacco use and exposure Smokeless tobacco non-user [facility] Start: 06-24-2022 End: 07-22-2022 Alcohol intake Lifetime non-drinker (finding) [facility] Start: 08-30-2019 History SDOH Alcohol Frequency 1 [facility] Start: 1955 Sex Assigned At Not on file [facility] Start: 06-14-2022 End: 06-24-2022 Exposure to SARS-CoV-2 (event) Not sure [facility] Start: 07-11-2021 End: 07-25-2021 Gender identity Not on file [facility] Work Phone: Start: 07-25-2021 Alcoholic beverage intake Current non-drinker of alcohol (finding) [facility] Start: 07-11-2021 End: 10-29-2021 History of Social function [facility] National Score (1-100), lower number is lower risk Not on file [facility] Functional Status Date Assessment Result Facility 10-10-2014 Are you deaf, or do you have serious difficulty hearing No 10/10/2014 9:24 AM MICHELLE Cheatham Ma Juliana [facility] 10-10-2014 Are you blind, or do you have serious difficulty seeing, even when wearing glasses No 10/10/2014 9:24 AM MICHELLE Cheatham Ma Juliana [facility] 10-10-2014 Do you have serious difficulty walking or climbing stairs No 10/10/2014 9:24 AM Juliana Tinajero Ma [facility] 10-10-2014 Do you have difficul ty dressing or bathing No 10/10/2014 9:24 AM Juliana Tinajero Ma [facility] 10-10-2014 Because of a physica l, mental, or emotional condition, do you have difficulty doing errands alone such as visiting a physician's office or shopping No 10/10/2014 9:24 AM MICHELLE Cheatham Ma Juliana [facility] Mental Status Date Assessment Result Facility 06-02-2025 Cognitive function Level Of Cons ciousness Awake;Alert;Appropriate;Fol lows Commands [facility] Work Phone: 10-10-2014 Because of a physica l, mental, or emotional condition, do you have serious difficulty concentrating, remembering, or making decisions No 10/10/2014 9:24 AM Juliana Tinajero Ma [facility] Clinical Notes 07-11-2021 to 06-02-2025 Note Date & Type Note Facility 06-02-2025 History and physical note Note Date/Time June 02, 2025 10:27pm [facility] Medical Records Department [address] [place] [address] H&P Exam - Hospitalist 06/02/252029 MR#: [id number] Acct: [id number] Name: ARTURO SNOW Rep #:[id number] : 1955 69 From: Edith Watts MD PCP: MARISELA Burton Status:REG ER Location: ED HPI - General General Date of Admission: 06/02/25 Date of Service: 06/02/25 Chief Complaint: Syncopal event. HPI Narrative The patient is a 69 y/o M w/ PMHx: CKD stage III unclear subtype or GFR trending, HTN, HLD, GERD, Hypothyroidism, BPH with obstructive pathology, Gout who presents to [facility] ED [place] with his elevated been there for at least an hour sitting on a bridge and he reported not feeling well with onset of lightheadedness and dizziness and then passed out lasting approximately 30 seconds with diaphoresis prompting EMS call and by the time they arrived and evaluated and he was awake, alert with stable vital signs noting a similar episode approximately 1 year previous to this with persistent chronic right-sided headaches over the last year unchanged from prior with family noting that when he had a syncopal event he had no seizure-like activity but did have some gurgling type respirations otherwise no distress. He does report chronic R sided headaches that have been intermittent x 1 year, more ongoing x 1 year but notable over the last month. He denies any light or sound sensitivity with the headache and states primarily starts on his right temporal and goes down and into his neck almost as if it is a tension headache in his description describing it is mild. He had this approximately 1 year prior and had similar respiratory description per his family and loss of consciousness lasted approximate 30-60 seconds.he did go to another facility and had a full cardiac workup including outside Holter monitoring assessment that was unremarkable. He notes previous to this event hehad been in his normal state of health aside from persistent right sided headaches. Workup in the ED included T97.8, heart rate 70, BP 136/88, respiratory rate 22, 95% on room air, CBC with WC 6.6, hemoglobin 16.2, [id number] without marked shift, BMP with BUN/creatinine 17/1.34, GFR 58, glucose 134, troponin 16, CT brain with no acute intracranial findings with age-related involutional changes, intracranial atherosclerosis mild microvascular ischemic changes, chest x-ray with no acute Findings, EKG with SR without acute evidence of ischemia. In the ED patient ministered maintenance IV fluids. [facility] Medical History Pityriasis rosea Chronic kidney disease (CKD), stage III (moderate) Wears glasses Non-smoker History of echocardiogram Lipoma of neck Hyperlipidemia Essential hypertension BPH (benign prostatic hyperplasia) GERD (gastroesophageal reflux disease) Hypothyroid Home Medications ?Medication ?Instructions ?Recorded ?Last Taken ?Type levothyroxine 150 mcg tablet 150 mcg PO DAILY #90 tabs 04/21/24 Unknown Rx Allergy/AdvReac Type Severity Reaction Status Date / Time No Known Allergies Allergy Verified 06/02/25 17:59 Family History (Updated 06/02/25 @ 20:[address] 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 HEENT: + Lightheadedness, dizziness, syncopal event. Eyes: No visual loss, blurred vision, double vision or yellow sclerae. Ears, Nose, Throat: No hearing loss, sneezing, congestion, runny nose or sore throat. SKIN: No rash or itching, lesions, wounds. CARDIOVASCULAR: + Lightheadedness, dizziness, syncopal event. No chest pain, chest pressure or chest discomfort, palpitations, edema, orthopnea. RESPIRATORY: No shortness of breath, cough or sputum, wheezing, hemoptysis. GASTROINTESTINAL: No anorexia, nausea, vomiting or diarrhea, abdominal pain, melena, BRBPR. GENITOURINARY: No dysuria, frequency, urgency or retention. NEUROLOGICAL: + Chronic headaches, lightheadedness, dizziness with syncopal event. No paralysis, ataxia, numbness or tingling in the extremities, focal weakness, change in bowel or bladder control, seizure. MUSCULOSKELETAL: + muscle, back pain, joint pain or stiffness. HEMATOLOGIC: No anemia, bleeding or bruising. LYMPHATICS: No enlarged nodes. No history of splenectomy. PSYCHIATRIC: No history of depression or anxiety. ENDOCRINOLOGIC: No reports of sweating, cold or heat intolerance. No polyuria orpolydipsia. ALLERGIES: No history of asthma, hives, eczema or rhinitis. Vital Signs Vital Signs Vital Signs: 06/02/25 17:59 06/02/25 18:03 Temperature 97.8 F Temperature Source Oral Pulse Rate 70 Respiratory Rate 22 H Respiratory Effort Normal Non-Labored Blood Pressure 136/88 H Blood Pressure Mean 104 Pulse Ox 95 Oxygen Delivery Method Room Air Weight Weight: 241 lb 13.553 oz Body Mass Index (BMI) 30.2 Physical Exam Narrative Physical Examination: General: Awake, alert, oriented x 3 and cooperative, seated upright in the ED bed, notes persistent right-sided temporal to lateral neck headache/tension headache. Skin: Normal color, normal turgor, no icterus, no cyanosis except occasional stage ecchymoses, abrasion. HEENT: AT/NC, EOMI, PERRLA, MMM, no carotid bruits or JVD noted. Lungs: Mildly diminished, greater bases, proper effort, no rales, ronchi or wheezing. Heart: Regular rate and rhythm; no gallop, rub audible. Abdomen: Soft, NTTP, ND, mildly hyperactive BS, no appreciated HSM. Extremities: No cyanosis, no clubbing, no significant distal edema noted. Neurological: Patient awake, alert, oriented as noted, cognitive function intact; pupils equally reactive to light and accommodation, cranial nerves grossly normal, moving all 4 extremities, no focal deficits, strength mildly globally decreased. Psychiatric: Affect appears mildly fatigued otherwise normal, no acute evidence of depressive or anxiety feelings. Results Lab / Micro Data 06/02/25 18:03 06/02/25 18:03 Labs: Laboratory Results - last 24 hr 06/02/25 18:03: WBC 6.6, RBC 5.31, Hgb 16.2, Hct 46.6, MCV 87.8, MCH 30.5, MCHC 34.8, RDW Std Deviation 44.0 H, RDW Coeff of Veena 13.7, Plt Count 185, MPV 11.1, Immature Gran % (Auto) 0.300, Neut % (Auto) 58.9, Lymph % (Auto) 20.7, Gilmer % (Auto) 12.8 H, Eos % (Auto) 5.9 H, Baso % (Auto) 1.4 H, Absolute Neuts (auto) 3.9, Absolute Lymphs (auto) 1.36, Nucleated RBC % 0, Sodium 139, Potassium 3.8, Chloride 103, Carbon Dioxide 23.8, Anion Gap 13, BUN 17, Creatinine 1.34 H, Estim Creat Clear Calc 70.58, Est GFR (MDRD) Non-Af 58 L, BUN/Creatinine Ratio 12.3, Glucose 134 H, Calcium 8.8, Troponin T High Sens 16 Imaging Radiology Impression Brain CT 06/02/25 18:43 IMPRESSION: No noncontrast CT evidence of acute intracranial abnormality. No evidence of acute territorial major vessel infarct, mass effect or acute intracranial hemorrhage. - Age related involutional changes again noted. - Intracranial atherosclerosis and mild microvascular ischemic changes again noted. - Other findings discussed above. Reading Location: [id number] Chest X-Ray 06/02/25 18:50 IMPRESSION: No acute pulmonary infiltrate seen. - Other findings discussed above. Reading Location: [id number] Assessment & Plan Assessment/Plan (1) Syncope: PLAN: Plan The patient is a 69 y/o M w/ PMHx: CKD stage III unclear subtype or GFR trending, HTN, HLD, GERD, Hypothyroidism, BPH with obstructive pathology, Gout who presents to [facility] ED with [place]opal [place] been there for at least an hour sitting on a bridge and he reported notfeeling well with onset of lightheadedness and dizziness and then passed out lasting approximately 30 seconds with diaphoresis prompting EMS call and by the time they arrived and evaluated and he was awake, alert with stable vital signs noting a similar episode approximately 1 year previous to this with persistent chronic right-sided headaches over the last year unchanged from prior with family noting that when he had a syncopal event he had no seizure-like activity but did have some gurgling type respirations otherwise no distress. #1. Syncopal Event with persistent chronic headaches becoming more frequent: Unclear etiology, EKG in ED w/ sinus rhythm without evidence of acute ischemia, CXR w/ no acute cardiopulmonary findings, CT head with no acute findings, initial trop normal. Pending CTA head and neck in the ED and if no acute concerning findings that require transfer would proceed with admission to [facility] PCU, place on a monitored bed to assure no acute myocardial infarction with serial cardiac enzymes and EKGs. Will maintain on fall precautions, obtain admission orthostatic and AM orthostatic VS and increase hydration if appropriate. Will obtain ECHO and carotid ultrasound. PT/OT consultation to ascertain stability and discharge needs. #2. Hyperglycemia, mild: Patient with glucose 134, [place] that certainly could be recent intake, will obtain hemoglobin A1c be cautious. #3. Hypertension: Per current list on a regimen, clarified to be certain, will add if appropriate, IV hydralazine in the interim. #4. Hyperlipidemia: Not on regimen, clarified to be certain, encourage continued follow-up outpatient with primary care physician. #5. Hypothyroidism: Will continue patient on levothyroxine regimen, TSH pending. #6. Chronic Kidney Disease Stage III, unclear subtype or GFR trending: Admission BUN/Cr 17/1.34, GFR 58, baseline renal function primarily 1.3-1.6 however most recently 07/26/2024 noted to be 1.79, seems higher than previous, repeat BMP in AM. #7. BPH with obstructive pathology: Noted history, not currently on medications, clarified to be certain, monitor for retention. #8. GERD: Not on regimen, will have as needed Mylanta for symptoms. #9. DVT prophylaxis: Lovenox. #10. CODE status: Full Code status. Charges/Coding Visit Charges Inpatient E&M: 17232 Init Hosp L2 06/02/252055 <Electronically signed by Edith Watts MD> Cosigner Signature (if applicable): CC: MARISELA Jaimes; Dr. Edith Watts MD~ Signed ADDENDUM by Dr. Edith Watts MD on 06/02/25 at 2226 Addendum CTA Head and Neck: IMPRESSION: 1. Unchanged areas of stenosis in the A2 segment of the right PARVIZ and distal [id number] of the left MCA. 2. Otherwise, no hemodynamically significant stenosis within the head or neck. No evidence of intracranial aneurysm. 06/02/252225<Electronically signed by Edith Watts MD> Cosigner Signature (if applicable): cc: ANCILLARY SPECIALIST-C Amina Jaimes; Dr. Edith Watts MD ~* Signed [facility] Work Phone: 1(106) 543-297609-06-2025 History and physical note [facility] Medical Records Department [address] [place] [address] H&P Exam - Hospitalist 06/02/252029 MR#: [id number] Acct: [id number] Name: ARTURO SNOW Rep #:[id number] : 1955 69 From: Edith Watts MD PCP: MARISELA Burton Status:REG ER Location: ED HPI - General General Date of Admission: 06/02/25 Date of Service: 06/02/25 Chief Complaint: Syncopal event. HPI Narrative The patient is a 69 y/o M w/ PMHx: CKD stage III unclear subtype or GFR trending, HTN, HLD, GERD, Hypothyroidism, BPH with obstructive pathology, Gout who presents to [facility] ED with [place] in [place]seated position with his elevated been there for at least an hour sitting on a bridge and he reported not feeling well with onset of lightheadedness and dizziness and then passed out lasting approximately 30 seconds with diaphoresis prompting EMS call and by the time they arrived and evaluated and he was awake, alert with stable vital signs noting a similar episode approximately 1 year previous to this with persistent chronic right-sided headaches over the last year unchanged from prior with family noting that when he had a syncopal event he had no seizure-like activity but did have some gurgling type respirations otherwise no distress. He does report chronic R sided headaches that have been intermittent x 1 year, more ongoing x 1 year but notable over the last month. He denies any light or sound sensitivity with the headache and states primarily starts on his right temporal and goes down and into his neck almost as if it is a tension headache in his description describing it is mild. He had this approximately 1 year prior and had similar respiratory description per his family and loss of consciousness lasted approximate 30-60 seconds.he did go to another facility and had a full cardiac workup including outside Holter monitoring assessment that was unremarkable. He notes previous to this event hehad been in his normal state of health aside from persistent right sided headaches. Workup in the ED included T97.8, heart rate 70, BP 136/88, resp iratory rate 22, 95% on room air, CBC with WC 6.6, hemoglobin 16.2, [id number] without marked shift, BMP with BUN/creatinine 17/1.34, GFR 58, glucose 134, troponin 16, CT brain with no acute intracranial findings with age-related involutional changes, intracranial atherosclerosis mild microvascular ischemic changes, chest x-ray with no acute Findings, EKG with SR without acute evidence of ischemia. In the ED patient ministered maintenance IV fluids. [facility] Medical History Pityriasis rosea Chronic kidney disease (CKD), stage III (moderate) Wears glasses Non-smoker History of echocardiogram Lipoma of neck Hyperlipidemia Essential hypertension BPH (benign prostatic hyperplasia) GERD (gastroesophageal reflux disease) Hypothyroid Home Medications ?Medication ?Instructions ?Recorded ?Last Taken ?Type levothyroxine 150 mcg tablet 150 mcg PO DAILY #90 tabs 04/21/24 Unknown Rx Allergy/AdvReac Type Severity Reaction Status Date / Time No Known Allergies Allergy Verified 06/02/25 17:59 Family History (Updated 06/02/25 @ 20:[address] 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 HEENT: + Lightheadedness, dizziness, syncopal event. Eyes: No visual loss, blurred vision, double vision or yellow sclerae. Ears, Nose, Throat: No hearing loss, sneezing, congestion, runny nose or sore throat. SKIN: No rash or itching, lesions, wounds. CARDIOVASCULAR: + Lightheadedness, dizziness, syncopal event. No chest pain, chest pressure or chest discomfort, palpitations, edema, orthopnea. RESPIRATORY: No shortness of breath, cough or sputum, wheezing, hemoptysis. GASTROINTESTINAL: No anorexia, nausea, vomiting or diarrhea, abdominal pain, melena, BRBPR. GENITOURINARY: No dysuria, frequency, urgency or retention. NEUROLOGICAL: + Chronic headaches, lightheadedness, dizziness with syncopal event. No paralysis, ataxia, numbness or tingling in the extremities, focal weakness, change in bowel or bladder control, seizure. MUSCULOSKELETAL: + muscle, back pain, joint pain or stiffness. HEMATOLOGIC: No anemia, bleeding or bruising. LYMPHATICS: No enlarged nodes. No history of splenectomy. PSYCHIATRIC: No history of depression or anxiety. ENDOCRINOLOGIC: No reports of sweating, cold or heat intolerance. No polyuria orpolydipsia. ALLERGIES: No history of asthma, hives, eczema or rhinitis. Vital Signs Vital Signs Vital Signs: 06/02/25 17:59 06/02/25 18:03 Temperature 97.8 F Temperature Source Oral Pulse Rate 70 Respiratory Rate 22 H Respiratory Effort Normal Non-Labored Blood Pressure 136/88 H Blood Pressure Mean 104 Pulse Ox 95 Oxygen Delivery Method Room Air Weight Weight: 241 lb 13.553 oz Body Mass Index (BMI) 30.2 Physical Exam Narrative Physical Examination: General: Awake, alert, oriented x 3 and cooperative, seated upright in the ED bed, notes persistentright-sided temporal to lateral neck headache/tension headache. Skin: Normal color, normal turgor, no icterus, no cyanosis except occasional stage ecchymoses, abrasion. HEENT: AT/NC, EOMI, PERRLA, MMM, no carotid bruits or JVD noted. Lungs: Mildly diminished, greater bases, proper effort, no rales, ronchi or wheezing. Heart: Regular rate and rhythm; no gallop, rub audible. Abdomen: Soft, NTTP, ND, mildly hyperactive BS, no appreciated HSM. Extremities: No cyanosis, no clubbing, no significant distal edema noted. Neurological: Patient awake, alert, oriented as noted, cognitive function intact; pupils equally reactive to light and accommodation, cranial nerves grossly normal, moving all 4 extremities, no focaldeficits, strength mildly globally decreased. Psychiatric: Affect appears mildly fatigued otherwise normal, no acute evidence of depressive or anxiety feelings. Results Lab / Micro Data 06/02/25 18:03 06/02/25 18:03 Labs: Laboratory Results - last 24 hr 06/02/25 18:03: WBC 6.6, RBC 5.31, Hgb 16.2, Hct 46.6, MCV 87.8, MCH 30.5, MCHC 34.8, RDW Std Deviation 44.0 H, RDW Coeff of Veena 13.7, Plt Count 185, MPV 11.1, Immature Gran % (Auto) 0.300, Neut % (Auto) 58.9, Lymph % (Auto) 20.7, Gilmer % (Auto) 12.8 H, Eos % (Auto) 5.9 H, Baso % (Auto) 1.4 H, Absolute Neuts (auto) 3.9, Absolute Lymphs (auto) 1.36, Nucleated RBC % 0, Sodium 139, Potassium 3.8, Chloride 103, Carbon Dioxide 23.8, Anion Gap 13, BUN 17, Creatinine 1.34 H, Estim Creat Clear Calc 70.58, Est GFR (MDRD) Non-Af 58 L, BUN/Creatinine Ratio 12.3, Glucose 134 H, Calcium 8.8, Troponin T High Sens 16 Imaging Radiology Impression Brain CT 06/02/25 18:43 IMPRESSION: No noncontrast CT evidence of acute intracranial abnormality. No evidence of acute territorial major vessel infarct, mass effect or acute intracranial hemorrhage. - Age related involutional changes again noted. - Intracranial atherosclerosis and mild microvascular ischemic changes again noted. - Other findings discussed above. Reading Location: [facility] Chest X-Ray 06/02/25 18:50 IMPRESSION: No acute pulmonary infiltrate seen. - Other findings discussed above. Reading Location: [facility] Assessment & Plan Assessment/Plan (1) Syncope: PLAN: Plan The patient is a 69 y/o M w/ PMHx: CKD stage III unclear subtype or GFR trending, HTN, HLD, GERD, Hypothyroidism, BPH with obstructive pathology, Gout who presents to [facility] ED with [place] been there for at least an hour sitting on a bridge and he reported notfeeling well with onset of lightheadedness and dizziness and then passed out lasting approximately 30 seconds with diaphoresis prompting EMS call and by the time they arrived and evaluated and he was awake, alert with stable vital signs noting a similar episode approximately 1 year previousto this with persistent chronic right-sided headaches over the last year unchanged from prior with lesly eaton noting that when he had a syncopal event he had no seizure-like activity but did have some gurgling type respirations otherwise no distress. #1. Syncopal Event with persistent chronic headaches becoming more frequent: Unclear etiology, EKG in ED w/ sinus rhythm without evidence of acute ischemia, CXR w/ no acute cardiopulmonary findings, CT head with no acute findings, initial trop normal. Pending CTA head and neck in the ED and if no acute concerning findings that require transfer would proceed with admission to [facility] PCU, place on a monitored bed to assure no acute myocardial infarction with serial cardiac enzymes and EKGs. Will maintain on fall precautions, obtain admission orthostatic and AM orthostatic VS and increase hydrationif appropriate. Will obtain ECHO and carotid ultrasound. PT/OT consultation to ascertain stability and discharge needs. #2. Hyperglycemia, mild: Patient with glucose 134, [place] that certainly could be recent intake, will obtain hemoglobin A1c be cautious. #3. Hypertension: Per current list on a regimen, clarified to be certain, will add if appropriate, IV hydralazine in the interim. #4. Hyperlipidemia: Not on regimen, clarified to be certain, encourage continued follow-up outpatient with primary care physician. #5. Hypothyroidism: Will continue patient on levothyroxine regimen, TSH pending. #6. Chronic Kidney Disease Stage III, unclear subtype or GFR trending: Admission BUN/Cr 17/1.34, GFR 58, baseline renal function primarily 1.3-1.6 however most recently 07/26/2024 noted to be 1.79, seems higher than previous, repeat BMP in AM. #7. BPH with obstructive pathology: Noted history, not currently on medications, clarified to be certain, monitor for retention. #8. GERD: Not on regimen, will have as needed Mylanta for symptoms. #9. DVT prophylaxis: Lovenox. #10. CODE status: Full Code status. Charges/Coding Visit Charges Inpatient E&M: 81176 Init Hosp L2 06/02/252055 Cosigner Signature (if applicable): CC: MARISELA Jaimes; Dr. Edith Watts MD~ Signed ADDENDUM by Dr. Edith Watts MD on 06/02/25 at 2226 Addendum CTA Head and Neck: IMPRESSION: 1. Unchanged areas of stenosis in the A2 segment of the right PARVIZ and distal [id number] of the left MCA. 2. Otherwise, no hemodynamically significant stenosis within the head or neck. No evidence of intracranial aneurysm. 06/02/252225 Cosigner Signature (if applicable): cc: MARISELA Jaimes; Dr. Edith Watts MD ~* Signed [facility]09-06-2025 Radiology Diagnostic study note [facility] Imaging Services [address] [place] [address] [id number] CTA Head AND Neck W/ Contrast MR#: [id number] Acct: [id number] Name: ARTURO SNOW Rep #: [id number] : 1955 M 69 From: Mally Galvan MD PCP: MARISELA Burton Status: REG ER Study:CTA Head AND Neck W/ Contrast Date of E xam: 06/02/25 Exam# [id number] Ordering Dr: Dhara Ford DO PROCEDURE: CTA HEAD AND NECK W/ CONTRAST 06/02/2025 REASON FOR EXAM: HEAD AND NECK PAIN. Syncopal episode. History of lipoma removed from neck. TECHNIQUE: Procedure Code: CTCTA.HDNCK Modality: CT Procedure: CTA HEAD AND NECK W/ CONTRAST Axial CTA images of the head and neck performed with intravenous contrast. MIP reconstructed imageswere created and reviewed. Note: Per PQRS, the description of internal carotid artery percent stenosis, including 0 percent ornormal exam, is based on [place] Symptomatic Carotid Endarterectomy Trial (NASCET) criteria. CONTRAST: Isovue 370 VOLUME: 100 mL One or more dose reduction techniques were used (e.g., Automated exposure control, adjustment of the mA and/or kV according to patient size, use of iterative reconstruction technique). RADIATION DOSE SUMMARY: CTDlvol: 24.91, 18.64 mGy DLP: 810 mGycm FINDINGS: CTA HEAD: INTERNAL CAROTID ARTERIES No significant stenosis. No occlusion. No aneurysm. Mild carotid siphon calcification bilaterally. ANTERIOR CEREBRAL ARTERIES No significant stenosis on the left. No occlusion. No aneurysm. Areas of multifocal stenosis in theright A2 segment, which is unchanged. MIDDLE CEREBRAL ARTERIES No significant stenosis on the right. No occlusion. No aneurysm. Qlgtnjzqtaxkf16-94% focal stenosisagain seen in the distal left M1 segment, without significant interval change. POSTERIOR CEREBRAL ARTERIES No significant stenosis. No occlusion. No aneurysm. BASILAR ARTERY No significant stenosis. No occlusion. No aneurysm. VERTEBRAL ARTERIES No significant stenosis. No dissection or occlusion. VENOUS STRUCTURES Patent. BONES No acute osseous abnormality. CTA NECK: COMMON CAROTID ARTERIES No significant stenosis. No dissection or occlusion. INTERNAL CAROTID ARTERIES No stenosis by NASCET criteria. No dissection or occlusion. VERTEBRAL ARTERIES No significant stenosis. No dissection or occlusion. SOFT TISSUES No acute finding. No masses or lymphadenopathy. BONES No acute osseous abnormality. Degenerative changes of the spine. CT/CTA Head AND Neck W/ Contrast IMPRESSION: 1. Unchanged areas of stenosis in the A2 segment of the right PARVIZ and distal Q2cfuooku of the left MCA. 2. Otherwise, no hemodynamically significant stenosis within the head or neck. No evidence of intracranial aneurysm. Reading Location: [id number] CC: MARISELA Jaimes; Dr. Chandan Ford, DO ~ Stencil Inspector: Signed [facility]09-06-2025 Radiology Diagnostic study note [facility] Imaging Services [address] [place], [place] [address] Brain/Head without Contrast MR#: [id number] Acct: [id number] Name: ARTURO SNOW Rep #: [id number] : 1955 M 69 From: Andry Jasso MD PCP: MARISELA Burton Status: REG ER Study:Brain/Head without Contrast Date of Exa m: 06/02/25 Exam# [id number] Ordering Dr: Dhara Ford DO PROCEDURE: BRAIN/HEAD WITHOUT CONTRAST 06/02/2025 REASON FOR EXAM: HEADACHE, SYNCOPE TECHNIQUE: Procedure Code: CTBR Modality: CT Procedure: BRAIN/HEAD WITHOUT CONTRAST Coronal and Sagittal reconstruction series were provided. One or more dose reduction techniques were used (e.g., Automated exposure control, adjustment of the mA and/or kV according to patient size, use of iterative reconstruction technique. RADIATION DOSE SUMMARY: CTDlvol: Please see CT mGy DLP: Please see CT mGycm COMPARISON: Head CT May 12, 2024. FINDINGS: Note: Images through the base of the brain and posterior fossa including the brainstemare slightly degraded by beam hardening artifact from the adjacent calvarium. Brain: There is no evidence of acute intracranial hemorrhage. There is mild global parenchymal volume loss. No focal extra-axial fluid collection is seen. Appearance of the basal cisterns is unremarkable. There is no midline shift or herniation. No evidence of pneumocephalus. Incidental intracranial calcifications noted. There is intracranial calcific atherosclerosis. Mild microvascular ischemic changes are again noted. No parenchymal changes are seen suggestive of cytotoxic edema to indicate an acute territorial vascular infarct. Note is made that CT changes may lag clinical findings an acute stroke. If indicated, consider follow-up imaging or diffusion-weighted MRI. Ventricles: The ventricles do not appear obstructed. Pituitary: The pituitary fossa does not appear enlarged. The pituitary stalk does not appear deviated. Soft tissues: No pericranial scalp hematoma. Osseous: No acute calvarial fracture. No suspicious bone lesion. Visualized paranasal sinuses: Mild mucosal thickening within a few ethmoid air cells. No fluid in the paranasal sinuses. Mastoids: No fluid or opacification of mastoid air cells. Middle ear cavities: The visualized middle ear cavities are not opacified. CT/Brain/Head without Contrast IMPRESSION: No noncontrast CT evidence of acute intracranial abnormality. No evidence of acute territorial major vessel infarct, mass effect or acute intracranial hemorrhage. - Age related involutional changes again noted. - Intracranial atherosclerosis and mild microvascular ischemic changes again noted. - Other findings discussed above. Reading Location: [id number] CC: MARISELA Jaimes; Dr. Chandan oFrd DO ~ Stencil Inspector: Signed [facility]09-06-2025 Radiology Diagnostic study note [facility] Services [address] [place] [address] Chest 1 View (Portable) MR#: [id number] Acct: [id number] Name: ARTURO SNOW Rep #: [id number] : 1955 M 69 From: Andry Jasso MD PCP: MARISELA Burton Status: REG ER Study:Chest 1 View (Portable) Date of Exam: 06/02/25 Exam# [id number] Ordering Dr: Dhara Ford DO PROCEDURE: CHEST 1 VIEW (PORTABLE) 06/02/2025 REASON FOR EXAM: SYNCOPE TECHNIQUE: Frontal view of the chest. COMPARISON: Chest x-ray November 10, 2020 FINDINGS: Lungs: The lungs are symmetrically expanded. Lung volumes are low. Mild crowding of vasculature or atelectasis at the lower lung teague. There is no consolidation. There is no peribronchial thickening. There is no pulmonary vascular redistribution. Pleura: No significant pleural effusion seen. There is no evidence of pneumothorax. Mediastinum: There is no mediastinal widening or mediastinal shift. Heart: The cardiac silhouette is not enlarged. Vascular: Tortuous thoracic aorta. Bethany: The pulmonary bethany are not enlarged or retracted. Osseous: No acute fracture is seen. RAD/Chest 1 View (Portable) IMPRESSION: No acute pulmonary infiltrate seen. - Other findings discussed above. Reading Location: [id number] CC: ANCILLARY SPECIALIST-C Amina Jaimes; Dr. Chandan Ford DO ~ Stencil Inspector: Signed [facility]08-29-2025 Evaluation note* Diagnosis Onset Date Resolution Status Admit Date Ankle pain, left acute April 282024 9:19am Gout acute May 25, 025 9:19am Hypercholesterolemia acute Sept 2024 10:45pm Syncope acute June 02, 2025 10:45pm Hypertension chronic May 10:45pm [facility] Work Phone: 1(589) 268-706605-12-2025 History of Present illness Narrative* Belen Peterson RT(R) - 02/05/2025 3:00 PM EDT Radiology Service Progress Note PATIENT NAME: Arturo Snow DATE OF SERVICE: February 05, 2025 TIME: 3:13 PM PATIENT IDENTITY VERIFICATION COMPLETED USING TWO (2) IDENTIFIERS: Name and Date of confirmedby patient verbally. FALL SCREENING: Has the patient had 2 falls in the last year or 1 fall with injury or currently using an Ambulatory Assistive Device (Walker, Cane, Wheelchair, Crutches, etc.)? No PATIENT GENDER DATA: Assigned male at PATIENT RELEVANT IMPLANT DATA REVIEWED: Not Applicable PATIENT PRESENTS WITH AN IMPLANTABLE OR ATTACHED EARLY YEARS TEACHER: No RADIOLOGY DEPARTMENT: General X-ray: Exam(s) Completed: Spine X-Ray(s): Cervical AP / LAT / OBL andLumbar AP / LAT / L5-S1 / OBL PERIPHERAL IV DATA: Not applicable SIGNED BY: KENDALL Choudhary) February 05, 2025 3:13 PM [facility] NoteHNO ID: [id number] Author: BELEN PETERSON RT(R) Service: ? Author Type: Technologist Type: Progress [...] PATIENT PRESENTS WITH AN IMPLANTABLE OR ATTACHED EARLY YEARS TEACHER: No RADIOLOGY DEPARTMENT: General X-ray: Exam(s) Completed: Spine X-Ray(s): Cervical AP / LAT / OBL and Lumbar AP / LAT / L5-S1 / OBL PERIPHERAL IV DATA: Not applicable SIGNED BY: Belen Peterson, RT(R) February 05, 2025 3:13 [facility]05-05-2025 Evaluation note* Diagnosis Onset Date Resolution Status Admit Date Cervical muscle strain acute Ma y 2024 4:39pm Torticollis, acquired acute January 29, 2025 4:39pm [facility] Work Phone: 1(202) 751-323808-19-2024 NoteCommunication Log Entered On: 05/15/2024 15:38 EDT Performed On: 05/15/2024 15:38 EDT by Cha Pham RN Call Log Physician Call Log Physician requesting : KELLIE RODRIGUEZ DO Patient Location : 166 Physician being called : DAVE RAMOS MD Reason : Consult Telephone number : donis Time Call Placed : 15:43 EDT Comment : 05/14/24 notified via Cha Humphries RN - 05/15/2024 15:[facility] NoteNursing Discharge Summary Entered On: 05/15/2024 15:31 EDT Performed On: 05/15/2024 15:30 EDT by Cha Pham RN, DC Information Discharged to : Home Reg VTE Warfarin at Discharge : No Cha Pham RN - 05/15/2024 15:30 EDT Education TeachBack Methodology : Explanation Barriers to Learning : None evident Cha Pham RN - 05/15/2024 15:30 [facility] NotePT Inpatient Evaluation Acute Entered On: [...] RTF : Consult Physician, 05/15/2024 08:00:00 EDT, STYLES MD, TRILOK, syncope, Ordered Communication CONSTANT Order, 05/14/2024 13:40:00 EDT, Constant Order, Current ACLS Provider may, Initiate [place] [employer] Advanced Cardiac Life support Algorithm per patient code status, Ordered Communication CONSTANT Order, 05/14/2024 13:40:00 EDT, Constant Order, STAT EKG for Chest Pain, STAT ABGs for Acute Respiratory Distress, STAT Potassium/Magnesium for any significant change in condition/rhythm, Ordered Notify Provider, 05/14/2024 13:40:00 EDT, Constant Order, Contact OBS Unit PA/ANCILLARY SPECIALIST for any change in clinical status, positive [...] Alert, Calm, Cooperative, Oriented Lamonte Zaman DPT 05/15/2024 12:59 EDT History, Problems History of Comorbidities,Personal Factor : 1-2 personal factors and/or comorbidities Lamonte Zaman DPT 05/15/2024 12:59 EDT Pain Assessment Pain Location : Neck Self Report Pain : Numeric rating scale Numeric Pain Scale : 3 Numeric Pain Score : 3 Lamonte Zaman DPT 05/15/2024 12:59 EDT Pain Assessment Detail Interventions [...] Extremity Active Range : Within functional limits Hannahardt LONA, Lamonte 05/15/2024 12:59 EDT Lt Lower Extremity Strength : Within functional limits LarryvaLamonte pimentel DPT 05/15/2024 12:59 EDT Left Lower Extremity Strength Grid Hip Flexion : 5 Knee Flexion : 5 Knee Extension : 5 Ankle Dorsiflexion : 5 Barnhardt Lamonte ZAMORANO 05/15/2024 12:59 EDT Rt Lower Extremity Strength : Within functional limits Hannahardt Lamonte ZAMORANO 05/15/2024 12:59 EDT Right Lower Extremity Strength Grid Hip Flexion : 5 Knee Flexion : 5 Knee Extension : 5 Ankle Dorsiflexion : 5 Barnhardt LONA, Lamonte 05/15/2024 12:59 EDT UE ROM/Strength Overall Range of Motion Left Upper Extremity Active Range : Within functional limits Right Upper Extremity Active Range : Within functional limits Lamonte Zaman DPT - 05/15/2024 12:59 EDT Left Upper Extremity Strength : Within functional limits Right Upper Extremity Strength : Within functional limits Lamonte Zaman DPT - 05/15/2024 12:59 EDT Mobility Mobility Grid Supine to Sit : Complete I Sit to Supine : Complete I Transfer Sit to Stand : Complete I Transfer Stand to Sit : Complete I Lamonte Zaman DPT - 05/15/2024 12:59 EDT Ambulation Level : Complete independe (more content not included)...[facility]08-19-2024 NotePatient: ARTURO SNOW Age: 68 years Sex: Male : 1955 Associated Diagnoses: None Author: PRIYANKA GREER MD History of Present Illness Patient is a 68-year-old male with medical history significant for hypothyroidism and BPH who presents to the ED today for syncope and headache. Patient states 2 days ago he was getting his haircut when he became extremely diaphoretic and dizzy and then lost consciousness slumping forward in the chair, EMS was called and he was transported to [place] ED where he believes he received a [...] 15 07:38) Resp Rate 18 br/min (MAY 15:37) SBP H 158 mmHg (MAY 15 07:37) DBP 88 mmHg (MAY 15 07:37) BMI 31 (MAY 14 15:45) General: Alert and oriented. Eye: Vision unchanged. HENT: Normocephalic. Neck: No thyromegaly. Respiratory: Lungs are clear to auscultation. Cardiovascular: Normal rate, No gallop. Gastrointestinal: Soft, Non-tender. Lymphatics: No lymphadenopathy neck, axilla, groin. Musculoskeletal: No deformity. Integumentary: Warm. Neurologic: Grossly intact. Cognition and Speech: Functional cognition intact. Psychiatric: Cooperative. Review / Management Results review: General Labs (ST) CBCWD WBC: 8 x103/uL (05/15/24) RBC: 5.29 [...] GPT: 24 unit/L (05/15/24) Magnesium: 1.9 mg/dL ( (more content not included)...[facility]08-18-2024 NoteCommunication Log Entered On: 05/14/2024 16:58 EDT Performed On: 05/14/2024 16:58 EDT by Gerri Uriarte RN Call Log Physician Call Log Physician requesting : KELLIE RODRIGUEZ DO Patient Location : 166 Physician being called : DAVE RAMOS MD Reason : Consult Telephone number : donis Time Call Placed : 15:43 EDT Comment : 05/14/24 notified via Gerri Donis RN - 05/14/2024 16:58 [facility] NoteED Nursing Discharge Summary Entered On: 05/14/2024 15:47 EDT Performed On: 05/14/2024 15:15 EDT by Scarlett Melton RN OR Information [id number] ED IV's : Continue upon transfer ED IV Site Assessment : Yes, Completed in [facility] ED Vitals Completed : Yes ED Final Assessment Completed : N/A ED Progress Note Completed : Yes Complete all PRN/Pain response forms? : N/A ED Disassociate Patient from Monitor : Yes Updated Depart Time : Yes ED Belongings sent w patient [id number] : Not applicable Scarlett Melton RN - [...] Scarlett Melton RN - 05/14/2024 15:46 EDT [facility] Note Communication Log Entered On: 05/14/2024 15:43 EDT Performed On: 05/14/2024 15:43 EDT by Ines Jefferson Call Log Physician Call Log Physician requesting : KELLIE RODRIGUEZ DO Patient Location : 166 Physician being called : DAVE RAMOS MD Reason : Consult Telephone number : [place] Time Call Placed : 15:43 EDT Comment : 05/14/24 notified via Ines Valadez - 05/14/2024 15:43 [facility] NoteCommunication Log Entered On: 05/14/2024 15:43 EDT Performed On: 05/14/2024 15:42 EDT by Ines Jefferson Call Log Physician Call Log Physician requesting : KELLIE RODRIGUEZ DO Patient Location : 166 Physician being called : DAVE RAMOS MD Reason : Consult Telephone number : [place] Time Call Placed : 15:43 EDT Comment : 05/14/24 notified via Ines Valadez - 05/14/2024 15:42 [facility]08-18-2024 NoteImmunization Screening Entered On: 05/14/2024 15:39 EDT Performed On: 05/14/2024 15:37 EDT by Gerri Uriarte RN Immunization Screening Immunizations Current : Yes Last Tetanus : Unknown COVID-19 Fully Vaccinated : Yes COVID-19 Vaccine Received : Unknown COVID Booster Received : No Gerri Uriarte RN - 05/14/2024 15:37 [facility]Order Comment: Order entered secondary to inpatient admission.Result Comment: [phone] NoteOutreach Team ([phone]) Contact Details: Outbound call. Left Message. Care Gaps Scheduling Medicare AWV / PCP Visit: AWV due Eye Exam: Not due Mammogram: N/AThe ShareMeme [id number] History of Present illness Narrative* Bernarda Moses [...] Patient presents with Shortness of breath Arturo Law Whynott PCP is Bernarda oMses MD Patient was identified by name and [...] EXTERNAL SERVICE [facility] - EXERCISE STRESS ECHOCARDIOGRAM SERVICE REQUEST VERDUZCO (dyspnea on exertion) - EXTERNAL SERVICE RE[facility] - EXERCISE STRESS ECHOCARDIOGRAM SERVICE REQUEST Stage 3a chronic kidney disease (HCC) Other orders - gabapentin (NEURONTIN) 300 MG capsule; Take 1 Capsule by mouth at bedtime for 180 days. * Loretta Barnes - 07/22/2022 1:55 PM EDT Identification was verified by patient verbalizing his name and date of . documented in this [id number] Telephone encounter Note* Telephone Encounter - Emily Donahue - 07/13/2022 10:45 AM EDT Care gaps scheduling Health maintenance: Medicare AWV/PCP Visit not due Eye Exam:not due Foot Exam:not due Annual Bloodwork:not due CHRISS:n/a FIT:not due [id number] Miscellaneous Notes* Telephone Encounter - Emily Donahue - 07/13/2022 10:45 AM EDT Care gaps scheduling Health maintenance: Medicare AWV/PCP Visit not due Eye Exam:not due Foot Exam:not due Annual Bloodwork:not due CHRISS:n/a FIT:not due documented in this [id number] Telephone encounter Note* Telephone Encounter - John Blackmon - 06/29/2022 11:24 AM EDT Patient returned clinic call. Informed of message per notes below. Patient verbalized understandingand voiced no further questions. [id number] Miscellaneous Notes* Telephone Encounter - John Blackmon - 06/29/2022 [...] slight decrease in kidney function. Please avoid mubo-cjz-chouygd NSAIDs such as ibuprofen and Aleve. Please stay well hydrated. documented in this [id number] Telephone encounter Note* Telephone Encounter - Alejandra Oglesby - 06/29/2022 10:43 AM EDT I have attempted to contact this patient by phone to return their call, but there is no answer. Will try again later. LMTCB If pt calls back please go over lab message below Thank you [id number] Telephone encounter Note* Telephone Encounter - Alejandra Oglesby - 06/29/2022 10:41 AM EDT ----- Message from Bernarda Moses MD sent at 06/25/2022 12:52 PM EDT ----- Your blood counts, liver function, blood sugar, thyroid function and PSA were normal. The cholesterol was again elevated. Please watch fats in the diet. There was a slight decrease in kidney function. Please avoid kiwp-njz-afncwrw NSAIDs such as ibuprofen and Aleve. Please stay well hydrated. [id number] History of Present illness Narrative* Meri Urena [...] history, Family history and current medications including bjwm-qfu-ptncfpq medications and supplements): Patient Care Team: Bernarda [...] / Excessive Appetite?: Not at all Self [place]?: Not at all Trouble Concentrating?: Not at [...] Directives Advance Directives?: No Mini COG Mini-Cog Copyright Bre Brennan (used by permission of the author) [...] and blue? Not at all at 06/24/2022 110 During the past four weeks, has your physical and emotional health limited your social activities with family, friends, neighbors, or groups? Not at all at 06/24/2022 110 During the past four weeks, how much bodily pain have you generally had? Mild at 06/24/20221106 During the past four weeks, was someone available to help you if you needed and wanted help? Yes, as much as I want at 06/24/20221106 During the past four weeks, what was the hardest physical activity you could do for at least two minutes? Moderate at 06/24/2022 1107 Can you get to places out of walking distance without help? Y at 06/24/2022 1107 Can you go shopping for groceries or clothes without someone s help? Y at 06/24/2022 110 Can you prepare your own meals? Y at 06/24/2022 1107 Can you do your housework without help? Y at 06/24/2022 1107 Because of any health problems, do you need the help of another person with your personal care needs? N at 06/24/2022 110 Can you handle your own money without help? Y at 06/24/2022 1107 During the past four weeks, how would [...] keeping track of your medications? N at 06/24/20221106 How often do you have trouble taking medicines the way you have been told to take them? I always take them as prescribed at 06/24/20221106 How confident are you that you can control and manage most of your health problems? Somewhat confident at 06/24/20221106 Physical examination Vital signs: BP 129/95 Pulse [...] EXTERNAL SERVICE REQUEST FOR CARE OUTSIDE [facility] 1. Encounter for long-term (current) use of medications 2. Hypercholesteremia 3. Benign prostatic hyperplasia, unspecified whether lower urinary tract symptoms present 4. Idiopathic gout, unspecified chronicity, unspecified site 5. Hypothyroidism due to acquired atrophy of thyroid 6. Dyspnea, unspecified type 7. Medicare annual wellness visit, subsequent Additional concerns: labs, refills documented in this [id number] Instructions* Patient Instructions* Bernarda Moses MD - 06/24/2022 10:23 AM EDT Personalized Preventive for Arturo Law Accar[place] - 06/24/2022 Other Preventive Recommendations: Covid booster A preventive eye exam performed by an renewals specialist is recommended every 1-2 years to screen for glaucoma, cataracts, macular degeneration, and other eye disorders A preventive dental visit is recommended every 6 months Try to get at least 150 minutes of exercise per week or 10,000 steps per day on a pedometer Order FREE Exercise and Physical Activity book from [employer] on Agin7-626-738-1221 orhttp://order.crow.nih.gov/health/publication/order/BK004 You need 7239-4522 mg of calcium and 5869-5145 IU of vitamin D per day - [...] a bicycle or motorcycle documented in this [id number] NoteHNO ID: [id number] Author: Miguel Lyn DPM Service: ? Author [...] at this time. PCP: Oskar Galvan MD: [facility] PAST MEDICAL HISTORY Diagnosis Date - Disorder [...] come back as needed. Miguel Lyn DPM, FACFAS [facility] [address] [place] [address] W [email or web address]10[facility]21 NoteHNO ID: [id number] Author: Miguel Lyn DPM Service: ? Author [...] at this time. PCP: Oskar Galvan MD: [facility] PAST MEDICAL HISTORY Diagnosis Date - Disorder [...] in the resident?s note. Miguel Lyn DPM, [facility] [address] [place] [address] W [email or web address] - Westaluation note* Diagnosis Onset Date Resolution Status Gout acute Left foot pain acute Hypothyroidism (acquired) [facility] BPH (benign prostatic hyperplasia) acute Epigastric abdominal pain ac [place] GERD (gastroesophageal reflux disease) acute Hypertension chronic Hypothyroidism (acquired) [facility] Work Phone: Evaluation note* Diagnosis Encounter for [...] Onset Date Resolution Status Gout acute Hypertension [facility] Work Phone: Evaluation note* Diagnosis Onset Date Resolution Status Gout acute Hypertension chronic Maxillary sinusitis, acute a cute Hypertension chronic BPH (benign prostatic hyperplasia) acute GERD (gastroesophageal reflux disease) acute Hypothyroidism (acquired) [facility] Work Phone: Evaluation note* Diagnosis Onset Date Resolution Status Neck pain acute Sebaceous cyst acute Neck pain acute Sebaceous cyst acute [facility] Work Phone: Reason for referral (narrative)* Tests/Procedures (Routine) - Authorized Specialty Diagnoses / Procedures Referred By Contac t Referred To Contact Diagnoses Dyspnea, unspecified type Bernarda Moses MD [address] [place] [address] Referral ID Status Reason Start Date Expiration Date V isits Requested Visits Authorized [id number] Authorized 06/24/2022 06/24/2023 3 3 Comments CXR: PA and lat [facility] for referral (narrative)* Tests/Procedures (Routine) - Pending Review Specialty Diagnoses / Procedures Referred By Contact Referred To Contact Cardiovascular Testing Diagnoses Chest pain, exertional VERDUZCO (dyspnea on exertion) Bernarda Moses MD [address] [place] [address] [place] [address] [facility] CARD NON INVASIVE [address] [place] [address] Referral ID Status Reason Start Date Expiration Date V isits Requested Visits Authorized [id number] Pending Review 07/22/2022 07/22/2023 1 1 Scheduling [...] to ask your physician or the staff director of revenue when you arrive for your test.. EXERCISE [...] INSTRUCTIONS: You may schedule this test using [employer] or by calling [facility] at [phone] (GJOW). If you have any questions, please call [facility]. If you are unable to keep this appointment, please notify [facility]. You may cancel your appointment using [employer] or by phone. Please plan to arrive [...] VERDUZCO (dyspnea on exertion) Bernarda Moses MD [address] [place] [address] Referral ID Status Reason Start Date Expiration Date V isits Requested Visits Authorized [id number] Authorized 07/22/2022 07/22/2023 3 3 Comments [facility] (narrative)No reason for referral information availableWilmot [place] Home [facility] Services Work Phone: Summary Purpose Family History Relationship Condition Age at Onset Recorded Date/T george Not Specified Malignant neoplasm of lung Unknown Hypertension Unknown Disorder of thyroid Unknown Relationship Condition Age at Onset Recorded Date/T george father Malignant neoplasm of lung Unknown Hypertension Unknown mother Hypertension Unknown Venous thromboembolism (VTE) Unknown Factor V deficiency Unknown Advance Directives Advance Directive Response Recorded Date/ Time Living Will No November 10 9:44pm Power of Institutional Aide No November 10, 2020 9:44pm Advance Directive Response Recorded Date/ Time Living Will No November 10 8:44pm Power of Institutional Aide No November 10, 2020 8:44pm Advance Directive Response Recorded Date/ Time Do you have a Healthcare Power of Institutional Aide? No June 02, 2025 6:02pm Chief Complaint and Reason for Visit Chief [...] Torticollis, acquired January 29, 2025 4:39 pm Chief Complaint Admit Date LEFT ANKLE May 25, 2025 9: 19am RM 4 May 25, 2025 9: 41am syncope June 02, 2025 8:30pm syncope June 02, 2025 10:45pm Reason for Visit Admit Date Ankle pain, left May 25, 2025 9: 19am Gout May 25, 2025 9: 19am Hypercholesterolemia June 02, 2025 10:45pm Syncope June 02, 2025 10:45pm Hypertension June 02, 2025 10:45pm Additional Source Comments (unrecognized sect ion and content) No Status Records FoundNo Status Records FoundNo Status Records FoundNo Status Records FoundNo Status Records FoundNo Status Records FoundNo Status Records FoundNo Status Records FoundNo Status Records FoundNo Status Records Found INFORMATION SOURCE (unrecogn ized section and content) DATE CREATED AUTHOR 03/22/2018 [facility] DATE CREATED AUTHOR AUTHOR'S ORGANIZ ATION 09/18/2018 [facility] DATE CREATED AUTHOR AUTHOR'S ORGANIZ ATION 01/17/2021 [facility] DATE CREATED AUTHOR AUTHOR'S ORGANIZ ATION 10/22/2021 [facility] DATE CREATED AUTHOR AUTHOR'S ORGANIZ ATION 07/21/2022 [facility] DATE CREATED AUTHOR AUTHOR'S ORGANIZ ATION 11/27/2023 [facility] DATE CREATED AUTHOR AUTHOR'S ORGANIZ ATION 07/16/2024 [facility] DATE CREATED AUTHOR AUTHOR'S ORGANIZ ATION 02/10/2025 [facility] DATE CREATED AUTHOR AUTHOR'S ORGANIZ ATION 05/07/2025 [facility] DATE CREATED AUTHOR AUTHOR'S ORGANIZ ATION 05/26/2025 [facility] Goals (unrecognized section and content) Goals may [...] Care Teams (unrecognized sec tion and content) Equipment Operator/Laborer/Supervisor Relationship Specialty Start Date End Date Bernarda Moses MD [address] [place] [address] [place] [address] PCP - General Family Medicine 09/08/21 Equipment Operator/Laborer/Supervisor Relationship Specialty Start Date End Date Beranrda Moses MD [address] [place] [address] [place] [address] PCP - General Family Medicine 09/08/21 Equipment Operator/Laborer/Supervisor Relationship Specialty Start Date End Date Bernarda Moses MD [address] [place] [address] [place] [address] PCP - General Family Medicine 09/08/21 Equipment Operator/Laborer/Supervisor Relationship Specialty Start Date End Date Bernarda Moses MD [address] [place] [address] [place] [address] PCP - General Family Medicine 09/08/21 Team Status: Active Member Role Status Dates Dr. Mini Alejandro MD Primary Care Provider Active Team Status: Inactive Member Role Status Dates Dr. Mini Alejandro MD Primary Care Provider, Refer ring Provider Active Amina Jaimes ANCILLARY SPECIALIST, ANCILLARY SPECIALIST-C Attending Provider Active Team Status: Inactive Member Role Status Dates Dr. Mini Alejandro MD Primary Care Provider Active Amina Jaimes ANCILLARY SPECIALIST, ANCILLARY SPECIALIST-C Attending Provider Active Team Status: Active Member Role Status Dates Amina Jaimes NP, ANCILLARY SPECIALIST-C Primary Care Provider Active Team Status: Inactive Member Role Status Dates Amina Jaimes NP, ANCILLARY SPECIALIST-C Primary Care Pr ovider, Attending Provider, Referring Provider Active Team Status: Inactive Member Role Status Dates Amina Jaimes NP, ANCILLARY SPECIALIST-C Primary Care Provider Active Dr. Oskar Galvan MD Attending Provider, Referrin g Provider Active Equipment Operator/Laborer/Supervisor Relationship Specialty Start Date End Date Oskar Galvan MD PCP - General Family Medicine 08/11/11 Fabian Mansfield MD Primary Staff Physician Cardiology 12/13/18 Team Status: Active Member Role/Relationship Status Dates Amina Jaimes ANCILLARY SPECIALIST, ANCILLARY SPECIALIST-C Primary Care Provider Active Team Status: Inactive Member Role/Relationship Status Dates Amina Jaimes ANCILLARY SPECIALIST, ANCILLARY SPECIALIST-C Primary Care Provider Active Start: January 29, 2025 End: January 29, 2025 Amina Jaimes ANCILLARY SPECIALIST, ANCILLARY SPECIALIST-C Attending Provider Active Start: January 29, 2025 End: January 29, 2025 Amina Jaimes ANCILLARY SPECIALIST, ANCILLARY SPECIALIST-C Referring Provider Active Start: January 29, 2025 End: January 29, 2025 Team Status: Active Member Role/Relationship Status Dates Amina Jaimes ANCILLARY SPECIALIST, ANCILLARY SPECIALIST-C Primary Care Provider Active Start: May 25, 2025 Amina Jaimes ANCILLARY SPECIALIST, ANCILLARY SPECIALIST-C Referring Provider Active Start: May 25, 2025 Dr. Oskar Madison DO Attending Provider Active Start: May 25, 2025 Team Status: Inactive Member Role/Relationship Status Dates Amina Jaimes ANCILLARY SPECIALIST, ANCILLARY SPECIALIST-C Primary Care Provider Active Start: May 25, 2025 End: May 25, 2025 Dr. Yobani Garcia MD Attending Provider Active S tart: May 25, 2025 End: May 25, 2025 Team Status: Inactive Member Role/Relationship Status Dates Amina Jaimes ANCILLARY SPECIALIST, ANCILLARY SPECIALIST-C Primary Care Provider Active Start: May 25, 2025 End: May 25, 2025 Amina Jaimes ANCILLARY SPECIALIST, ANCILLARY SPECIALIST-C Referring Provider Active Start: May 25, 2025 End: May 25, 2025 Dr. Oskar Madison DO Attending Provider Active Start: May 25, 2025 End: May 25, 2025 Team Status: Inactive Member Role/Relationship Status Dates Amina Jaimes ANCILLARY SPECIALIST, ANCILLARY SPECIALIST-C Primary Care Provider Active Start: May 25, 2025 End: May 25, 2025 Amina Jaimes ANCILLARY SPECIALIST, ANCILLARY SPECIALIST-C Referring Provider Active Start: May 25, 2025 End: May 25, 2025 Dr. Oskar Madison , Attending Provider Active Start: May 25, 2025 End: May 25, 2025 Team Status: Inactive Member Role/Relationship Status Dates Amina Jaimes ANCILLARY SPECIALIST, ANCILLARY SPECIALIST-C Primary Care Provider Active Start: May 25, 2025 End: May 25, 2025 Dr. Yobani Garcia MD Attending Provider Active S tart: May 25, 2025 End: May 25, 2025 Team Status: Active Member Role/Relationship Status Dates Amina Jaimes NP, ANCILLARY SPECIALIST-C Primary Care Provider Active Start: June 02, 2025 Dr. Chandan Ford , DO Emergency Provider Active S tart: June 02, 2025 Dr. Edith Watts MD Attending Provider Active Start: June 02, 2025 Team Status: Active Member Role/Relationship Status Dates Amina Jaimes ANCILLARY SPECIALIST, ANCILLARY SPECIALIST-C Primary Care Provider Active Start: June 02, 2025 Dr. Chandan Ford , Emergency Provider Active S tart: June 02, 2025 Dr. Edith Watts MD Admit Provider Active St art: June 02, 2025 Dr. Edith Watts MD Attending Provider Active Start: June 02, 2025 Source Comments (unrecognize d section and content) In the event this informatio n is protected by the Federal Confidentiality of Alcohol and Drug Abuse Patient Records regulations: The Federal rules restrict any use of the information to criminally investigate or prosecute any alcohol or drug abuse patient.[facility] FOR RECORDS PERTAINING TO PATIENTS WHO [...] BE BASED ON THE PRIMARY CLINICAL RECORDS. [facility]. provides no warranty or guarantee of the accuracy or completeness of information in this document.
[2025-06-02 23:00] VITALS: BMI 30.4
[2025-06-02 23:25] VITALS: BP 127/92; BP 137/101; BP 137/89; BP 144/88; PULSE 67; PULSE 75; PULSE 82; PULSE 83; RESP 16; TEMP 37.1; O2SAT 99
[2025-06-02] MEDS: Potassium Phosphate 21 MM in 0.9% Normal Saline (250mL Bag) 250 ML 84 MM IV (23:34)
[2025-06-02] MEDS: 0.9% Normal Saline (1000mL) 1,000 ML 100 ML IV (23:35)
[2025-06-02] MEDS: 0.9% Saline Lock 10 ML Syringe IV (23:39)
[2025-06-03 00:11] LABS: Troponin T High Sens 4 HR 12 ng/L (<=22)
[2025-06-03 03:00] VITALS: BP 146/84; PULSE 58; RESP 14; TEMP 36.8; O2SAT 97
[2025-06-03 05:45] VITALS: BP 133/91; PULSE 64; RESP 14; TEMP 36.7; O2SAT 98
[2025-06-03 05:55] VITALS: BMI 30.4
[2025-06-03 06:06] LABS: Hematocrit 42.3 % (40-54); Hemoglobin 14.8 g/dL (13.0-16.5); Immature Granulocytes Count 0.030 X10^3/uL (0.0-0.0); Mean Corp Hgb Conc 35.0 g/dL (32-36); Mean Corpuscular Volume 87.6 fL (80-94); Mean Platelet Vol. 10.7 fl (6.2-12.0); NRBC Flagged by Analyzer 0 % (0-5); Platelet Count 173 K/mm3 (150-450); RBC Distribution Width CV 13.7 % (11.6-14.6); RBC Distribution Width SD 43.7 fl (35.1-43.9); Red Blood Count 4.83 M/mm3 (4.6-6.2); White Blood Count 8.4 K/mm3 (4.4-11.0)
[2025-06-03 06:35] LABS: AST(SGOT) 18 U/L (<=37); Alanine Aminotransfer ALT/SGPT 14 U/L (<=46); Albumin, Serum 3.8 g/dL (3.4-4.8); Alkaline Phosphatase 66 U/L (40-129); Anion Gap 10 (5-15); BUN 13 mg/dL (4-19); BUN/Creat Ratio 10.2 RATIO (10-20); Calcium,Total 8.2 mg/dL (7.6-11.0); Carbon Dioxide 23.6 mmol/L (21.0-32.0); Chloride 107 mmol/L (98-108); Estimated Creatinine Clearance 75.38 ml/min (50-250); Globulin 1.9 g/dL (2.2-4.2); Glucose 97 mg/dL (70-99); Potassium 4.1 mmol/L (3.3-5.1)
[2025-06-03 08:30] VITALS: BP 138/82; PULSE 69; RESP 17; TEMP 36.4; O2SAT 96
[2025-06-03] MEDS: 0.9% Saline Lock 10 ML Syringe IV (08:35)
[2025-06-03 14:30] VITALS: BP 146/95; PULSE 69; RESP 17; TEMP 36.3; O2SAT 96
--- NOTE | 2025-06-03 14:42 | PN_ITS ---
Subjective Subjective Patient seen and examined with his nurse by his bedside. His son was also by his bedside. He was admitted with a complaint of syncope. He said he was at the [facility] when he felt dizzy and passed out. He complains of headache. He says this headache is chronic but has been getting worse of late. He denies any chest pain or palpitations, nausea or vomiting or any other symptoms. Orthostatics were negative on admission. Objective Data Objective Data Vital Signs: Vital Signs Temp Pulse Resp BP Pulse Ox O2 Del Method 97.6 F L 69 17 138/82 H 96 Room Air 06/03/25 08:30 06/03/25 08:30 06/03/25 08:30 06/03/25 08:30 06/03/25 08:30 06/03/25 08:30 Oxygen Delivery Method Room Air Weight: 244 lb 0.827 oz Body Mass Index (BMI) 30.4 Intake & Output: Intake and Output for Last 24 Hours 06/01/25 06/02/25 06/03/25 23:59 23:59 23:59 Intake Total 927.5 / 927.5 1577 / 1577 Balance 927.5 / 927.5 1577 / 1577 Lab / Micro Data 06/03/25 05:38 06/03/25 05:38 Labs: Laboratory Results - last 24 hr 06/02/25 18:03: WBC 6.6, RBC 5.31, Hgb 16.2, Hct 46.6, MCV 87.8, MCH 30.5, MCHC 34.8, RDW Std Deviation 44.0 H, RDW Coeff of Veena 13.7, Plt Count 185, MPV 11.1, Immature Gran % (Auto) 0.300, Neut % (Auto) 58.9, Lymph % (Auto) 20.7, [place] % (Auto) 12.8 H, Eos % (Auto) 5.9 H, Baso % (Auto) 1.4 H, Absolute Neuts (auto) 3.9, Absolute Lymphs (auto) 1.36, Nucleated RBC % 0, Sodium 139, Potassium 3.8, Chloride 103, Carbon Dioxide 23.8, Anion Gap 13, BUN 17, Creatinine 1.34 H, Estim Creat Clear Calc 70.58, Est GFR (MDRD) Non-Af 58 L, BUN/Creatinine Ratio 12.3, Glucose 134 H, Calcium 8.8, Phosphorus 2.4 L, Magnesium 2.1, Troponin T High Sens 16 06/02/25 21:45: Troponin T Hi Sens 2 Hr 13 06/02/25 23:35: Troponin T Hi Sens 4Hr 12 06/03/25 05:38: WBC 8.4, RBC 4.83, Hgb 14.8, Hct 42.3, MCV 87.6, MCH 30.6, MCHC 35.0, RDW Std Deviation 43.7, RDW Coeff of Veena 13.7, Plt Count 173, MPV 10.7, Immature Gran % (Auto) 0.400, Neut % (Auto) 68.5, Lymph % (Auto) 13.4 L, [place] % (Auto) 12.2 H, Eos % (Auto) 4.7, Baso % (Auto) 0.8, Absolute Neuts (auto) 5.8, Absolute Lymphs (auto) 1.12, Nucleated RBC % 0, Sodium 141, Potassium 4.1, Chloride 107, Carbon Dioxide 23.6, Anion Gap 10, BUN 13, Creatinine 1.26 H, Estim Creat Clear Calc 75.38, Est GFR (MDRD) Non-Af 62, BUN/Creatinine Ratio 10.2, Glucose 97, Hemoglobin A1c 5.7, Calcium 8.2, Phosphorus 3.5, Total Bilirubin 1.26, AST 18, ALT 14, Alkaline Phosphatase 66, Total Protein 5.7 L, Albumin 3.8, Globulin 1.9 L, Albumin/Globulin Ratio 2.0, TSH 4.560 H Radiography Diagnostic Testing: Radiology Impression Brain CT 06/02/25 18:43 IMPRESSION: No noncontrast CT evidence of acute intracranial abnormality. No evidence of acute territorial major vessel infarct, mass effect or acute intracranial hemorrhage. - Age related involutional changes again noted. - Intracranial atherosclerosis and mild microvascular ischemic changes again noted. - Other findings discussed above. Reading [facility] Chest X-Ray 06/02/25 18:50 IMPRESSION: No acute pulmonary infiltrate seen. - Other findings discussed above. Reading [facility] Head/Neck CTA 06/02/25 20:34 IMPRESSION: 1. Unchanged areas of stenosis in the A2 segment of the right PARVIZ and distal M1 segment of the left MCA. 2. Otherwise, no hemodynamically significant stenosis within the head or neck. No evidence of intracranial aneurysm. Reading Location: [facility] Physical Exam Const alert, oriented x3 and no apparent distress General Appearance: cooperative HEENT normocephalic, head/scalp atraumatic, moist oral mucous membranes and oropharynx normal Eyes EOMs intact bilaterally Neck supple and no JVD Lymph Lymphatic: no lymphedema noted Resp normal respiratory effort, normal air movement and clear to auscultation bilaterally Cardio regular rate, regular rhythm, S1 normal heart sound, S2 normal heart sound and no murmurs GI normal to inspection, nondistended, normoactive bowel sounds, soft to palpation and non-tender Extremity General Extremity: no tenderness to palpation of joints or extremities Skin General Skin Exam: no breakdown Neuro no focal motor deficits and no sensory deficits noted Motor Exam: strength 5/5 throughout and general weakness Psych thought process normal, cooperative and affect normal Appearance: appropriate Assessment & Plan Assessment/Plan (1) Syncope: PLAN: Plan #Syncope * etiology is unclear. EKG showed no evidence of arrhythmia or ischemia * CXR showed no acute cardiopulmonary findings and CT of the brain also showed no acute intracranial pathology. Initial troponin was negative. * CTA of the head and neck showed no hemodynamically significant stenosis. * 2D echo and carotid ultrasound ordered. Neurology also consulted as the second time he has had this and says he had an event monitor for about a week at that time which did not show anything. * PT OT on board. For precautions. #CKD II: Cr is down to 1.26 today. Baseline Cr is ~ 1.3. Will monitor #Hyperlipidemia: Not on any medication #Left ankle pain likely due to mechanical fall, will get imaging of the left ankle to evaluate. P.o. Tylenol and oxycodone as needed for pain. PT OT on board. #Hypothyroidism: On Synthroid DVT prophylaxis: Lovenox CODE STATUS: Full code Charges/Coding Visit Charges Inpatient E&M: 41800 Subs Hosp L2
--- NOTE | 2025-06-03 16:10 | RAD_ITS ---
PROCEDURE: ANKLE MIN 3 VIEWS 06/03/2025 REASON FOR EXAM: LEFT ANKLE PAIN TECHNIQUE: Procedure Code: RADANK Modality: DX Procedure: ANKLE MIN 3 VIEWS Laterality: Left COMPARISON: None FINDINGS: Osseous: Distal tibiofibular congruency is maintained. The ankle mortise is preserved. Tibiotalar spacing is uniform. No subchondral defect is seen at the talar dome. Subtalar alignment is anatomic. Calcaneal height is preserved. Moderately large plantar calcaneal heel spur. Achilles insertional enthesopathic change noted. No evidence of an acute osseous injury. Soft tissue: Soft tissue injury is not reliably assessed by this technique. RAD/Ankle min 3 Views IMPRESSION: No radiographic evidence of an acute osseous injury at the left ankle. - Other findings discussed above. Reading Location: [id number]
[2025-06-03 20:16] VITALS: PULSE 72; RESP 18; O2SAT 96
[2025-06-03 20:32] VITALS: BP 155/87; PULSE 69; RESP 18; TEMP 36.8; O2SAT 96
--- NOTE | 2025-06-04 00:17 | PCM.HOSP.N ---
Hospitalist Note Patient with asymptomatic 14 beat VT.
[2025-06-04 01:54] VITALS: BP 143/94; PULSE 64; RESP 18; TEMP 36.7; O2SAT 99
[2025-06-04] MEDS: 0.9% Saline Lock 10 ML Syringe IV (02:00)
[2025-06-04 05:20] VITALS: BMI 30.7
[2025-06-04 05:47] LABS: Hematocrit 43.0 % (40-54); Hemoglobin 14.8 g/dL (13.0-16.5); Immature Granulocytes Count 0.030 X10^3/uL (0.0-0.0); Mean Corp Hgb Conc 34.4 g/dL (32-36); Mean Corpuscular Volume 88.7 fL (80-94); Mean Platelet Vol. 10.9 fl (6.2-12.0); NRBC Flagged by Analyzer 0 % (0-5); Platelet Count 160 K/mm3 (150-450); RBC Distribution Width CV 13.9 % (11.6-14.6); RBC Distribution Width SD 45.1 fl (35.1-43.9); Red Blood Count 4.85 M/mm3 (4.6-6.2); White Blood Count 6.9 K/mm3 (4.4-11.0)
[2025-06-04 06:12] LABS: Anion Gap 9 (5-15); BUN 14 mg/dL (4-19); BUN/Creat Ratio 11.4 RATIO (10-20); Calcium,Total 8.2 mg/dL (7.6-11.0); Carbon Dioxide 22.0 mmol/L (21.0-32.0); Chloride 108 mmol/L (98-108); Estimated Creatinine Clearance 75.56 ml/min (50-250); Glucose 95 mg/dL (70-99); Potassium 3.9 mmol/L (3.3-5.1)
[2025-06-04 07:05] VITALS: O2SAT 94
[2025-06-04 08:00] VITALS: BP 147/92; PULSE 57; RESP 17; TEMP 36.9; O2SAT 95
--- NOTE | 2025-06-04 11:35 | CASEMGMT ---
CARLOS ENRIQUE CM in to complete MOSER form with patient. CARLOS ENRIQUE ARANGO explained MOSER form, patient voiced understanding. Patient signed MOSER form and filed in chart. Patient provided with copy of signed MOSER form. Patient had no further questions or concerns.
--- NOTE | 2025-06-04 12:43 | NEURO.CONS ---
Assessment and Plan: Neuro Assessment/Plan CONNOR SNOW is a 69 M being evaluated by Teleneurology for syncope. CTH/CTA unremarkable. Exam unremarkable. Syncope with prodromal symptoms, more likely cardiac or vasovagal. Not concerning for seizure. Diagnosis: Syncope Plan: No further inpatient work up, neurology will sign off Can consider a tilt table test as an outpatient I personally attended this patient and spent a total time of 31 minutes evaluating this patient including clinical assessment, review of chart, medical history imaging, and determining appropriate treatment and workup. HPI Consult Data Date of Consult: 06/04/25 HPI Narrative HPI Narrative: CONNOR SNOW, is a 69 M CKD stage III unclear subtype or GFR trending, HTN, HLD, GERD, Hypothyroidism, BPH with obstructive pathology, Gout who presented after a syncopal episode. He was at the [facility] when he felt unwell/lightheaded and passed out. He stopped breathing and was out for about 30-60 seconds. He was very diaphoretic when he awoke. No post-ictal confusion. This has happened once before about a year ago, patient reports it was exactly like this event. [facility] Medical History Pityriasis rosea Chronic kidney disease (CKD), stage III (moderate) Wears glasses Non-smoker History of echocardiogram Lipoma of neck Hyperlipidemia Essential hypertension BPH (benign prostatic hyperplasia) GERD (gastroesophageal reflux disease) Hypothyroid Home Medications ?Medication ?Instructions ?Recorded ?Last Taken ?Type colchicine 0.6 mg tablet 0.6 mg PO DAILY 06/02/25 Unknown History levothyroxine 150 mcg tablet 137 mcg PO DAILY 06/02/25 Unknown History tadalafil 20 mg tablet 20 mg PO DAILY 06/02/25 Unknown History Allergy/AdvReac Type Severity Reaction Status Date / Time No Known Allergies Allergy Verified 06/02/25 17:59 Family History Father Lung cancer Hypertension Mother Hypertension VTE (venous thromboembolism) Factor V deficiency Surgical History S/P excision of lipoma H/O arthroscopy of knee Social History Smoking Status: Never smoker second hand exposure: No alcohol intake: never substance use type: does not use caffeine: Yes Type: coffee Number of servings: 1 what type of physical activity do you participate in: other details: active lifestyle, 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 michi/yazidism: Zoroastrianism seatbelt use: always do you feel safe at home: Yes Vital Signs Vital Signs Vital Signs: 06/03/25 13:55 06/03/25 14:30 06/03/25 20:16 Temperature 97.4 F L Temperature Source Oral Pulse Rate 69 72 Respiratory Rate 17 18 Respiratory Effort Normal Non-Labored Respiratory Depth Normal Respiratory Pattern Normal Blood Pressure 146/95 H Blood Pressure Mean 112 Blood Pressure Source Monitor Blood Pressure Position Semi-Fowlers Blood Pressure Location Right Arm Pulse Ox 96 96 Oxygen Delivery Method Room Air Room Air Room Air 06/03/25 20:32 06/04/25 01:54 06/04/25 08:00 Temperature 98.3 F 98.0 F 98.4 F Temperature Source Oral Oral Oral Pulse Rate 69 64 57 L Respiratory Rate 18 18 17 Respiratory Effort Respiratory Depth Respiratory Pattern Blood Pressure 155/87 H 143/94 H 147/92 H Blood Pressure Mean 109 110 110 Blood Pressure Source Monitor Monitor Monitor Blood Pressure Position Semi-Fowlers Supine Semi-Fowlers Blood Pressure Location Right Arm Right Arm Right Arm Pulse Ox 96 99 95 Oxygen Delivery Method Room Air Room Air Room Air Weight Weight: 111.266 kg Body Mass Index (BMI) 30.7 EEG Results Procedure Details EEG Procedure Details: CONNOR SNOW is a 69 year old M with a past medical history of , who presents for evaluation of Electroencephalogram on DATE at TIME Physical Exam Neuro oriented x3 and CN's II-XII intact bilaterally Coordination / Balance: [id number] test normal and [id number] test normal Speech: speech normal Sensory Exam: double simultaneous stimulation for sensation normal Motor Exam: strength 5/5 throughout, muscle tone normal throughout, no pronator drift, no tremor and no asterixis Lab / Micro Data 06/04/25 04:48 06/04/25 04:48 Labs: Laboratory Results - last 24 hr 06/04/25 04:48: WBC 6.9, RBC 4.85, Hgb 14.8, Hct 43.0, MCV 88.7, MCH 30.5, MCHC 34.4, RDW Std Deviation 45.1 H, RDW Coeff of Veena 13.9, Plt Count 160, MPV 10.9, Immature Gran % (Auto) 0.400, Neut % (Auto) 67.8, Lymph % (Auto) 13.3 L, [place] % (Auto) 10.3 H, Eos % (Auto) 7.0 H, Baso % (Auto) 1.2 H, Absolute Neuts (auto) 4.7, Absolute Lymphs (auto) 0.92, Nucleated RBC % 0, Sodium 139, Potassium 3.9, Chloride 108, Carbon Dioxide 22.0, Anion Gap 9, BUN 14, Creatinine 1.26 H, Estim Creat Clear Calc 75.56, Est GFR (MDRD) Non-Af 62, BUN/Creatinine Ratio 11.4, Glucose 95, Calcium 8.2 Imaging Radiology Impression Echocardiogram 06/02/25 22:55 Interpretation Summary Mild concentric left ventricular hypertrophy. The left ventricular ejection fraction is 50 %. Stage 1 diastolic dysfunction. The left atrium is moderately enlarged. Mildly dilated aortic root. Ordering Physician: Edith Watts Referring Physician: AMINA RAM Performed By: Sofia Harvey RCS Ankle X-Ray 06/03/25 16:10 IMPRESSION: No radiographic evidence of an acute osseous injury at the left ankle. - Other findings discussed above. Reading Location: [facility] Active Medications Active Medications Active Medications: Current Medications Generic Name Dose Route Start Last Admin Trade Name Freq PRN Reason Stop Dose Admin Acetaminophen 650 mg 06/02/25 22:55 Acetaminophen 325 Mg Tablet PO Q4H PRN PRN Fever, pain 1-07/06 Al Hydroxide/Mg Hydroxide 30 ml 06/02/25 22:55 Mag Hydrox/Al Hydrox/Simeth 30 Ml Udc PO Q6H PRN PRN Gastric Burning Albuterol Sulfate 2.5 mg 06/02/25 22:55 Albuterol 2.5 Mg/3 Ml Vial.Neb. INHALATION Q2H PRN PRN Dyspnea, wheezing Enoxaparin Sodium 40 mg 06/03/25 10:00 06/04/25 09:00 Enoxaparin 40 Mg/0.4 Ml Syringe SC Not Given DAILY KYLE Guaifenesin 20 ml 06/02/25 22:55 Guaifenesin 10 Ml Udc (200mg/10ml) PO Q4H PRN PRN COUGH Hydralazine HCl 10 mg 06/02/25 22:55 Hydralazine 20 Mg/Ml Vial IV Q4H PRN PRN SBP > 160 Protocol Sodium Chloride 250 mls @ 15 mls/hr 06/02/25 22:56 IV .[id number] PRN Saline Flush Sodium Chloride 250 mls @ 15 mls/hr 06/02/25 22:56 IV .[id number] PRN Additional IVPB Infusion Ketorolac Tromethamine 15 mg 06/02/25 22:55 06/03/25 18:48 Ketorolac 15 Mg/Ml Vial IV 15 mg Q8H PRN PRN Administration pain 1-10, fever Levothyroxine Sodium 150 mcg 06/03/25 06:00 06/04/25 05:19 Levothyroxine 150 Mcg Tablet PO 150 mcg DAILY@0600 KYLE Administration Melatonin 3 mg 06/02/25 22:55 Melatonin 3 Mg Tablet PO QHS PRN PRN INSOMNIA Ondansetron HCl 4 mg 06/02/25 22:55 Ondansetron 4 Mg/2 Ml Vial IV Q8H PRN PRN NAUSEA/VOMITING Oxycodone HCl 5 mg 06/03/25 14:58 Oxycodone 5 Mg Tablet PO Q6H PRN PRN Pain Score 4-10 Senna/Docusate Sodium 2 tablet 06/02/25 22:55 Senna/Docusate Sodium 1 Tablet PO BID PRN PRN Constipation Sodium Chloride 10 - 40 ml 06/02/25 22:56 06/04/25 02:00 0.9% Saline Lock 10 Ml Syringe IV 10 ml UD PRN Administration SALINE FLUSH
[2025-06-04 14:00] VITALS: BP 141/84; PULSE 68; RESP 18; TEMP 36.9; O2SAT 95
--- NOTE | 2025-06-04 16:15 | DCINST_ITS ---
Discharge Instructions DC O2, CPAP, BIPAP needs Home O2 Discharge instructions: No Dressing / Incision Discharge Activity: Return to Normal Activity Dressing / Incision Call your doctor if you observe: Fever of 101 or Higher, Shortness of breath, Dizziness, Fainting spells, Swelling in the ankles, Chest pain and Increased palpitations (irregular heartbeat) Follow Up Care Test Results: Test results from this visit will be discussed in further detail at your follow- up appointment, if applicable. Discharge Plan Admission Admit Date/Time: 06/02/25 20:51 Attending Provider: Lee Burger Primary Care Provider: Renetta Jaimes NP Consulting Providers: Edith Watts; Shaggy Reed; Rosa Irving; Alyx Amaya; Clary Chavis; Anaid Hidalgo; Eric Berger; Catherine Law; Lev Rios; Bin Huerta; Lele Mazariegos; Selin Rodriguez; Ana Chatman; Jaspal Hackett; Philly Ledesma; Michelle Jerez; Magno Foster; Pedrito Whelan; Yessica Carballo; Garrett Beck; Susy Quinteros; Brandee Orosco; Nkechi Catherine Discharge Orders/Prescriptions Prescriptions: New atorvastatin [Lipitor] 20 mg tablet 20 mg PO DAILY Qty: 30 0RF Continued levothyroxine 150 mcg tablet 137 mcg PO DAILY colchicine 0.6 mg tablet 0.6 mg PO DAILY tadalafil 20 mg tablet 20 mg PO DAILY Referrals / Follow Up: Renetta Jaimes NP, [facility] [Primary Care Provider] - Within 1 Week Disposition Disposition (needs filled in before D/C Order can be placed): Home, Self Care
--- NOTE | 2025-06-04 16:27 | DS.PCM_ITS ---
Providers Date of Admission: 06/02/25 Primary Care Physician: MARISELA Burton Consultations 06/03/25 14:42 Neurology [Consult: Tele-Neurology] Routine Consulting Provider: [facility] Reason for Consult: syncope EMERGENT Consult: No MD Notified: Yes Date Notified: 06/03/25 Time Notified: 15:00 Method of Notification: Answering Service Nursing Unit Staff Notify [facility] of Tele-Neurology Consult: Yes Reason For Visit: SYNCOPE Diagnosis Discharge Diagnosis (1) Syncope: Status: Acute Code(s): R55 - Syncope and collapse Medications at Discharge Home Medications colchicine 0.6 mg tablet 0.6 mg PO DAILY 06/02/25 levothyroxine 150 mcg tablet 137 mcg PO DAILY 06/02/25 tadalafil 20 mg tablet 20 mg PO DAILY 06/02/25 atorvastatin 20 mg tablet (Lipitor) 20 mg PO DAILY #30 tabs 06/04/25 Hospital Course Operations None Procedures 2-D Echocardiogram Summary of Care Provided Minutes Spent on Discharge: 33 Hospital Course: Per HPI: The patient is a 69 y/o M w/ PMHx: CKD stage III unclear subtype or GFR trending, HTN, HLD, GERD, Hypothyroidism, BPH with obstructive pathology, Gout who presents to [facility] ED with syncopal episode while at the fair specifically in a seated position with his elevated been there for at least an hour sitting on a bridge and he reported not feeling well with onset of lightheadedness and dizziness and then passed out lasting approximately 30 seconds with diaphoresis prompting EMS call and by the time they arrived and evaluated and he was awake, alert with stable vital signs noting a similar episode approximately 1 year previous to this with persistent chronic right-sided headaches over the last year unchanged from prior with family noting that when he had a syncopal event he had no seizure-like activity but did have some gurgling type respirations otherwise no distress. He does report chronic R sided headaches that have been intermittent x 1 year, more ongoing x 1 year but notable over the last month. He denies any light or sound sensitivity with the headache and states primarily starts on his right temporal and goes down and into his neck almost as if it is a tension headache in his description describing it is mild. He had this approximately 1 year prior and had similar respiratory description per his family and loss of consciousness lasted approximate 30-60 seconds.he did go to another facility and had a full cardiac workup including outside Holter monitoring assessment that was unremarkable. He notes previous to this event he had been in his normal state of health aside from persistent right sided headaches. Workup in the ED included T97.8, heart rate 70, BP 136/88, respiratory rate 22, 95% on room air, CBC with WC 6.6, hemoglobin 16.2, platelet 185 without marked shift, BMP with BUN/creatinine 17/1.34, GFR 58, glucose 134, troponin 16, CT brain with no acute intracranial findings with age-related involutional changes, intracranial atherosclerosis mild microvascular ischemic changes, chest x-ray with no acute Findings, EKG with SR without acute evidence of ischemia. In the ED patient ministered maintenance IV fluids. Hospital Course: 1. Syncope?69-year-old male whose had syncope in the past presents to the hospital with another episode of syncope. His family was concerned because this episode was little bit more severe than the one about a year ago. This time they said that he stopped breathing for half a minute and became hernandez in the face and became rigid and had a little bit of right upper extremity shaking. Echocardiogram was unremarkable with normal ejection fraction and stage I diastolic dysfunction. He denies any chest pain or lightheadedness today. He did have some lightheadedness before he had the episode of passing out. Neurology was consulted and felt that no further workup for neurological cause would be necessary and felt that this was either cardiac or vasovagal in nature and was not consistent with seizure. The family feels fairly confident that it was not a seizure as well as both the patient's and daughter have epilepsy. CTA of the head and neck was fairly unremarkable aside from multifocal stenosis in the right A2 segment as well as a 45 to 50% focal stenosis in the M1 segment on the left. Unclear as to the significance however given that he has had previous LDLs greater than 100+ these findings I did elect to place him on Lipitor 20 mg p.o. daily. I discussed with him and his family all the findings so far and he request to be discharged home. He expressed understanding of the risks and benefits of going home and would still like to go home today. I do recommend that he follow-up with his PCP in 3 to 5 days for monitoring. They are to come back to the hospital if another episode like this occurs. 2. Hyperlipidemia, gout, hypothyroidism are all chronic medical conditions which complicate his care. His home medications were continued where appropriate Physical Exam Narrative General: Alert, Oriented x3, Cooperative, No apparent distress HEENT: Atraumatic, PERRLA, EOMI, Normocephalic Oral: Moist Mucosa Neck: Supple, No JVD Lungs: Clear to auscultation, Normal air movement, No rhonchi, No wheeze, No rales Cardiovascular: Regular rate, Regular Rhythm, Normal S1, Normal S2, No murmurs Abdomen: Soft, Non Tender, Non-Distended, No Hepato-splenomegaly Extremities: No edema, Capillary Refill Less than 3 Seconds Skin: No rashes, No breakdown Musculoskeletal: No Tenderness to Palpation of Joints or Extremities Neurological: No focal neurological deficits, Motor Exam 5/5 strength throughout, Sensory exam intact to light touch and pain Psych/Mental Status: Normal Affect, Appropriate Weight / BMI Weight Weight: 245 lb 4.8 oz Body Mass Index (BMI) 30.7 ABG / Lab / Microbiology Data 06/04/25 04:48 06/04/25 04:48 Laboratory: Laboratory Results - last 24 hr 06/04/25 04:48: WBC 6.9, RBC 4.85, Hgb 14.8, Hct 43.0, MCV 88.7, MCH 30.5, MCHC 34.4, RDW Std Deviation 45.1 H, RDW Coeff of Veena 13.9, Plt Count 160, MPV 10.9, Immature Gran % (Auto) 0.400, Neut % (Auto) 67.8, Lymph % (Auto) 13.3 L, Park % (Auto) 10.3 H, Eos % (Auto) 7.0 H, Baso % (Auto) 1.2 H, Absolute Neuts (auto) 4.7, Absolute Lymphs (auto) 0.92, Nucleated RBC % 0, Sodium 139, Potassium 3.9, Chloride 108, Carbon Dioxide 22.0, Anion Gap 9, BUN 14, Creatinine 1.26 H, Estim Creat Clear Calc 75.56, Est GFR (MDRD) Non-Af 62, BUN/Creatinine Ratio 11.4, Glucose 95, Calcium 8.2 Radiography Diagnostic Testing: Radiology Impression Echocardiogram 06/02/25 22:55 Interpretation Summary Mild concentric left ventricular hypertrophy. The left ventricular ejection fraction is 50 %. Stage 1 diastolic dysfunction. The left atrium is moderately enlarged. Mildly dilated aortic root. Ordering Physician: Edith Watts Referring Physician: AMINA RAM Performed By: Sofia Harvey RCS Ankle X-Ray 06/03/25 16:10 IMPRESSION: No radiographic evidence of an acute osseous injury at the left ankle. - Other findings discussed above. Reading Location: [facility] D/C Instructions Call your doctor if you observe: Fever of 101 or Higher, Shortness of breath, Dizziness, Fainting spells, Swelling in the ankles, Chest pain and Increased palpitations (irregular heartbeat) DC O2, CPAP, BIPAP Needs Home O2 Discharge instructions: No Meaningful Use Info Meaningful Use Meaningful Use Diagnoses (Choose all that apply): None applicable Discharge Plan Admission Admit Date/Time: 06/02/25 20:51 Attending Provider: Lee Burger Primary Care Provider: Amina Ram NP Consulting Providers: Edith Watts; Shaggy Reed; Rosa Irving; Alyx Amaya; Clary Chavis; Anaid Hidalgo; Eric Berger; Catherine Law; Lev Rios; Bin Huerta; Lele Mazariegos; Selin Rodriguez; Ana Chatman; Jaspal Hackett; Philly Ledesma; Michelle Jerez; Magno Foster; Pedrito Whelan; Yessica Carballo; Garrett Beck; Susy Quinteros; Brandee Orosco; Nkechi Catherine Discharge Orders/Prescriptions Prescriptions: New atorvastatin [Lipitor] 20 mg tablet 20 mg PO DAILY Qty: 30 0RF Continued levothyroxine 150 mcg tablet 137 mcg PO DAILY colchicine 0.6 mg tablet 0.6 mg PO DAILY tadalafil 20 mg tablet 20 mg PO DAILY Referrals / Follow Up: Amina Ram NP, [facility] [Primary Care Provider] - Within 1 Week Disposition Disposition (needs filled in before D/C Order can be placed): Home, Self Care Charges/Coding Visit Charges Inpatient E&M: 82147 Disch Hosp >30min
== END 2025-06-04 18:00 | disposition home or self-care (01) ==
LOC: ED 20:26 → PCU 22:55
PROVIDERS: Student in an Organized Health Care Education/Training Program; Admitting Provider Family Medicine; Emergency Provider Emergency Medicine; PCP Nurse Practitioner; Visit Provider Family Medicine
DX: R55 Syncope and collapse (principal); N18.30 Chronic kidney disease, stage 3 unspecified; I12.9 Hypertensive chronic kidney disease with stage 1 through stage 4 chronic kidney disease, or unspecified chronic kidney disease; E78.5 Hyperlipidemia, unspecified; E03.9 Hypothyroidism, unspecified; Z79.890 Hormone replacement therapy; K21.9 Gastro-esophageal reflux disease without esophagitis; N40.1 Benign prostatic hyperplasia with lower urinary tract symptoms; N13.8 Other obstructive and reflux uropathy; R51.9 Headache, unspecified; R73.9 Hyperglycemia, unspecified; I77.819 Aortic ectasia, unspecified site; R94.31 Abnormal electrocardiogram [ECG] [EKG]; M25.572 Pain in left ankle and joints of left foot
CPT/HCPCS: 36415; 70450; 70496; 70498; 71045; 73610; 80048; 80053; 83036; 83735; 84100; 84443; 84484; 85025; 93005; 93306; 96361; 96372; 96374; 96376; 99221; 99285; Q9967; A4216; G0378